=== PATIENT | female | born 1950 | race Hispanic/Latino ===

== ENCOUNTER 2018-10-22 10:53 | Inpatient (IN) | payer MEDICARE, OTHER ==
[2018-10-22 13:36] VITALS: BMI 21.6
[2018-10-22 13:41] LABS: URINE BILIRUBIN NEGATIVE (NEGATIVE); URINE BLOOD LARGE (NEGATIVE); URINE GLUCOSE (UA) NEGATIVE (NEGATIVE); URINE LEUKOCYTE ESTERASE MODERATE Leu/uL (NEGATIVE); URINE PROTEIN 100 mg/dL (<30 mg/dL); URINE UROBILINOGEN 0.2 E.U./dL (<1 E.U./dL)
[2018-10-22 13:42] LABS: URINE APPEARANCE TURBID (CLEAR); URINE COLOR YELLOW (YELLOW)
[2018-10-22 13:55] LABS: ALB/GLOB RATIO 0.9 (1.1-1.8); ALBUMIN 3.7 g/dL (3.0-4.8); CALCIUM 9.1 mg/dL (8.4-10.5)
[2018-10-22 13:56] LABS: HEMOGLOBIN 9.2 g/dL (12.0-16.0); MEAN CELL VOLUME 90.1 fl (80.0-105.0); MEAN CORPUSCULAR HEMOGLOBIN 29.4 pg (25.0-35.0); MEAN CORPUSCULAR HGB CONC 32.6 g/dl (31.0-37.0); MEAN PLATELET VOLUME 10.2 fl (7.0-11.0); RBC 3.13 10^6/uL (3.5-6.1); RED CELL DISTRIBUTION WIDTH 13.5 % (11.5-14.5); WHITE BLOOD COUNT 24.6 10^3/uL (4.5-11.0)
[2018-10-22 14:12] LABS: URINE RBC 25 - 30 /hpf (0-2)
[2018-10-22] MEDS ORDERED: Insulin Regular 1 UNITS/0.01 ML ML SC STA (14:12)
[2018-10-22] MEDS ORDERED: Dextrose 50% SYRINGE Inj (50 ml) IVP STA (14:12)
[2018-10-22] MEDS ORDERED: Sod Polystyrene Sulf 15 gm/60 ml Susp PO STA (14:12)
[2018-10-22] MEDS ORDERED: Dextrose 50% SYRINGE Inj (50 ml) IV PRN (14:12)
[2018-10-22 14:13] LABS: URINE BACTERIA MANY /hpf; URINE COARSE GRANULAR CAST SMALL /hpf
--- NOTE | 2018-10-22 14:38 | RAD ---
Date of service: 10/22/2018 PROCEDURE: CHEST RADIOGRAPH, 1 VIEW HISTORY: sob COMPARISON: 06/19/2016 FINDINGS: LUNGS: Clear. PLEURA: No pneumothorax or pleural fluid seen. CARDIOVASCULAR: No aortic atherosclerotic calcification present. Normal. OSSEOUS STRUCTURES: No significant abnormalities. VISUALIZED UPPER ABDOMEN: Normal. OTHER FINDINGS: None. IMPRESSION: No active disease.
--- NOTE | 2018-10-22 15:20 | US ---
Date of service: 10/22/2018 HISTORY: hx of kidney disease w/ nasra COMPARISON: None. TECHNIQUE: Sonographic evaluation of the abdomen. FINDINGS: LIVER: Measures 17.0 cm. Hepatopedal blood flow. Fatty infiltration manifest ultrasonographically as increased echogenicity of the liver parenchyma. No mass. No intrahepatic bile duct dilatation. GALLBLADDER: Unremarkable. No gallstones. COMMON BILE DUCT: Measures 5.6 mm. No stones. No dilatation. PANCREAS: Unremarkable as visualized. No mass. No ductal dilatation. RIGHT KIDNEY: Measures 4.2 x 10.4cm. Normal echogenicity. No calculus, mass, or hydronephrosis. LEFT KIDNEY: Measures 4.8 x 10.4cm. Normal echogenicity. No calculus, mass, or hydronephrosis. SPLEEN: Normal in size and contour. No mass. AORTA: No aneurysmal dilatation. IVC: Unremarkable. OTHER FINDINGS: None. IMPRESSION: Hepatic steatosis, otherwise unremarkable study.
--- NOTE | 2018-10-22 15:56 | CP.PCM.CON ---
<Anshul Rodriguez - Last Filed: 10/22/18 15:20> History of Present Illness - History of Present Illness History of Present Illness: Anshul Rodriguez, PGY-1 Consult Note for ICU CC: Lethargy HPI: 68 F with PMHx of granulomatosis with polyangiitis (diagnosed in 06/05 at which point patient received IV steroids, cytoxan, and plasmapharesis for 3 days), invasive ductal carcinoma grade 1 (for which patient received radiation therapy that completed 08/07, and HTN who presents with 3 weeks of lethargy. Patient had been feeling sustained full body weakness during that time period but denied fevers, chills, changes in bowel habits, nausea, vomiting, chest pain, palpitations. Patient went to her primary doctor, at which point no lab abnormalities were noted. Patient then had further labs drawn as lethargy progressed. Patient was then notified on 10/20/18 that creatinine had elevated to 8 and was subsequently urged to visit the hospital. Patient was started on course of Prednisone 20 mg BID yesterday. Patient denies recent travel or sick contacts. PMHx: as above PSHx: Lobectomy All: PCN Social: Past smoker, social ETOH use, Meds: Losartan 100 mg daily PMD: Dr. Webb Review of Systems - Review of Systems Review of Systems: 12 point ROS completed and negative except as described in HPI. Past Patient History - Past Social History Smoking Status: Never Smoked - CARDIAC Hx Cardiac Disorders: No - PULMONARY Hx Respiratory Disorders: Yes (SINUSITIS WITH REMMOVAL OF SINUS POLYPS) Other/Comment: FLU LIKE SYMPTOMS 06-19-16 - NEUROLOGICAL Hx Paralysis: No - HEENT Hx HEENT Problems: Yes (SINUSITIS WITH SINUS SX-REMOVAL OF POLYPS) - RENAL Hx Chronic Kidney Disease: No - ENDOCRINE/METABOLIC Hx Endocrine Disorders: No - HEMATOLOGICAL/ONCOLOGICAL Hx Blood Transfusions: No Hx Blood Transfusion Reaction: No - INTEGUMENTARY Hx Dermatological Problems: No - MUSCULOSKELETAL/RHEUMATOLOGICAL Hx Musculoskeletal Disorders: No - GASTROINTESTINAL Hx Gastrointestinal Disorders: No - GENITOURINARY/GYNECOLOGICAL Hx Genitourinary Disorders: No - PSYCHIATRIC Hx Emotional Abuse: No Hx Physical Abuse: No Hx Substance Use: No - SURGICAL HISTORY Hx Appendectomy: Yes Other/Comment: hemerhoid operation - ANESTHESIA Hx Anesthesia Reactions: No Hx Malignant Hyperthermia: No Meds Allergies/Adverse Reactions: Allergies Allergy/AdvReac Type Severity Reaction Status Date / Time Penicillins Allergy RASH Verified 06/19/16 18:00 - Medications Medications: Current Medications Dextrose (Dextrose 50% Inj) 0 ml IV STAT PRN; Protocol PRN Reason: Hypoglycemia Protocol Dextrose (Dextrose 5% In Water 1000 Ml) 1,000 mls @ 0 mls/hr IV .Q0M PRN; Protocol PRN Reason: Hypoglycemia Protocol Calcium Gluconate 1,000 mg/ (Sodium Chloride) 110 mls @ 110 mls/hr IVPB ONCE ONE Stop: 10/22/18 15:44 Physical Exam - Constitutional Appears: Other (Lethargic) - Head Exam Head Exam: ATRAUMATIC, NORMOCEPHALIC - Eye Exam Eye Exam: EOMI, PERRL - ENT Exam ENT Exam: Mucous Membranes Moist - Neck Exam Neck exam: Positive for: Full Rom - Respiratory Exam Respiratory Exam: Clear to Auscultation Bilateral. absent: Rales, Rhonchi, Wheezes, Respiratory Distress - Cardiovascular Exam Cardiovascular Exam: RRR, +S1, +S2 - GI/Abdominal Exam GI & Abdominal Exam: absent: Distended, Guarding, Rebound, Tenderness - Back Exam Back exam: absent: CVA tenderness (L), CVA tenderness (R), tenderness - Neurological Exam Neurological exam: Alert, CN II-XII Intact, Oriented x3 - Psychiatric Exam Psychiatric exam: Normal Affect, Normal Mood - Skin Skin Exam: Dry, Intact, Pallor, Warm Results - Vital Signs Recent Vital Signs: Last Vital Signs Temp Pulse 75 10/22/18 15:01 Resp 17 10/22/18 15:01 BP 126/66 10/22/18 15:01 Pulse Ox 98 10/22/18 15:01 - Labs Result Diagrams: 10/22/18 13:36 10/22/18 13:36 Labs: Laboratory Results - last 24 hr 10/22/18 10/22/18 10/22/18 13:36 13:36 13:36 WBC 24.6 H RBC 3.13 L Hgb 9.2 L Hct 28.2 L MCV 90.1 MCH 29.4 MCHC 32.6 RDW 13.5 Plt Count 406 MPV 10.2 Sodium 134 Potassium 6.5 H* D Chloride 101 Carbon Dioxide 20 L Anion Gap 20 BUN 106 H Creatinine 11.2 H* Est GFR ( Amer) 4 Est GFR (Non-Af Amer) 3 Random Glucose 151 H Calcium 9.1 Total Bilirubin 0.4 AST 25 ALT 25 Alkaline Phosphatase 108 NT-Pro-B Natriuret Pep 4110 H Total Protein 7.7 Albumin 3.7 Globulin 3.9 Albumin/Globulin Ratio 0.9 L Urine Color Yellow Urine Appearance Turbid Urine pH 6.0 Ur Specific [place] 1.025 Urine Protein 100 H Urine Glucose (UA) Negative Urine Ketones Negative Urine Blood Large H Urine Nitrate Negative Urine Bilirubin Negative Urine Urobilinogen 0.2 Ur Leukocyte Esterase Moderate H Urine RBC 25 - 30 H Urine WBC 10 - 15 H Ur Epithelial Cells 4 - 5 Urine Bacteria Many Coarse Granular Casts Small Assessment & Plan - Assessment and Plan (Free Text) Assessment: 68 F with PMHx of granulomatosis with polyangiitis and ductal carcinoma s/p lobectomy who presents with acute renal failure and hyperkalemia. Neuro - AAOx3, no FND, moving extremities past midline. - Monitor neuro status. - Reorient patient as necessary. Nephro ANA - likely 2/2 to granulomatosis with polyangiitis flare - Leukocytosis 24 - BUN/Cr 106/11.2 - UA shows bacteria and granular casts - HD as per renal, plan for tomorrow if K responds appropriately to K-lowering cocktail. - IR consulted - Dr. Cross- for dialysis catheter placement today - Continue monitoring. - Replete electrolytes as needed. - Maintain euvolemia. - Renal consult produced- Dr. Randall- recs appreciated Endo - Hyperkalemia 6.5- cocktail provided. - F/u repeat BMP - AM labs - Random glucose: 151 - Maintain euglycemia. GI - 10/22/18 Abd U/S shows hepatic steatosis - Renal diet - Ppx with Protonix 40 mg Pulm - 10/22/18 CXR shows no significant abnormalities - No signs of respiratory distress. CTA B/L - Patient is stating well on room air. - Maintain O2 saturation>92%. - O2 NC PRN - Elevate bed to 30 degrees Cardio - CV intact, hemodynamically stable - EKG shows NSR @ 60 bpm, no ST or T wave changes - BP controlled 126/66. Will hold home Losartan for now in light of renal ins ult. - RRR, normotensive, no signs of HD compromise - Maintain MAP >65. - Monitor for S/S, HD compromise. - Hgb 9.2, continue to monitor DVT Ppx - Heparin 5000 SC q8 Patient seen, case reviewed and plan approved by Dr. Russell. Anshul Rodriguez, PGY-1 <Mark Russell - Last Filed: 10/22/18 16:57> Meds - Medications Medications: Current Medications Dextrose (Dextrose 50% Inj) 0 ml IV STAT PRN; Protocol PRN Reason: Hypoglycemia Protocol Heparin Sodium (Porcine) (Heparin) 5,000 units SC Q8 BAKARI; Protocol Dextrose (Dextrose 5% In Water 1000 Ml) 1,000 mls @ 0 mls/hr IV .Q0M PRN; Protocol PRN Reason: Hypoglycemia Protocol Pantoprazole Sodium (Protonix Ec Tab) 40 mg PO 0600 BAKARI Prednisone (Prednisone Tab) 30 mg PO BID BAKARI Results - Vital Signs Recent Vital Signs: Last Vital Signs Temp Pulse 75 10/22/18 15:01 Resp 17 10/22/18 15:01 BP 126/66 10/22/18 15:01 Pulse Ox 98 10/22/18 15:01 - Labs Result Diagrams: 10/22/18 13:36 10/22/18 13:36 Labs: Laboratory Results - last 24 hr 10/22/18 10/22/18 10/22/18 13:36 13:36 13:36 WBC 24.6 H RBC 3.13 L Hgb 9.2 L Hct 28.2 L MCV 90.1 MCH 29.4 MCHC 32.6 RDW 13.5 Plt Count 406 MPV 10.2 Sodium 134 Potassium 6.5 H* D Chloride 101 Carbon Dioxide 20 L Anion Gap 20 BUN 106 H Creatinine 11.2 H* Est GFR ( Amer) 4 Est GFR (Non-Af Amer) 3 Random Glucose 151 H Calcium 9.1 Total Bilirubin 0.4 AST 25 ALT 25 Alkaline Phosphatase 108 NT-Pro-B Natriuret Pep 4110 H Total Protein 7.7 Albumin 3.7 Globulin 3.9 Albumin/Globulin Ratio 0.9 L Urine Color Yellow Urine Appearance Turbid Urine pH 6.0 Ur Specific [place] 1.025 Urine Protein 100 H Urine Glucose (UA) Negative Urine Ketones Negative Urine Blood Large H Urine Nitrate Negative Urine Bilirubin Negative Urine Urobilinogen 0.2 Ur Leukocyte Esterase Moderate H Urine RBC 25 - 30 H Urine WBC 10 - 15 H Ur Epithelial Cells 4 - 5 Urine Bacteria Many Coarse Granular Casts Small Assessment & Plan - Assessment and Plan (Free Text) Assessment: Patient seen and examined on rounds with resident, agree with note with following additions/exceptions: Patient is 68 F with PMHx of granulomatosis with polyangiitis (diagnosed in 06/05 at which point patient received IV steroids, cytoxan, and plasmapharesis for 3 days), invasive ductal carcinoma grade 1 (for which patient received radiation therapy that completed 08/07, and HTN who presents with 3 weeks of lethargy. Patient found to have worsening renal function, increased BUN/Cr, K 6.5 Renal consulted by ER, Dr Randall, plan for HD today IR for HD catheter Repeat BMP after HD Calcium, Insulin, D50, Kayex GI ppx DVT ppx Admit to MICU
[2018-10-22] MEDS ORDERED: Lidocaine 2% Inj (20ml) ONE (17:03)
[2018-10-22] MEDS ORDERED: DiphenhydrAMINE 50 mg/ml Inj ONE (17:09)
[2018-10-22] MEDS ORDERED: Midazolam 2 MG/2 ML VIAL ONE (17:24)
--- NOTE | 2018-10-22 17:40 | CARD ---
APPROVED REPORT Date of service: 10/22/2018 EKG Measurement Heart [id number] <Conclusion> Normal sinus rhythm Normal ECG
--- NOTE | 2018-10-22 17:42 | CP.PCM.PCO ---
Physician Communication Note - Physician Communication Note Physician Communication Note: pt seen/documented in ED during [facility] downtime, paperwork to be scanned
[2018-10-22] MEDS ORDERED: Sodium Chloride 0.9% 1,000 ML IV SCH (17:45)
--- NOTE | 2018-10-22 20:02 | VASCULAR ---
PROCEDURE: Ultrasound and fluoroscopic tunneled right IJ dialysis catheter. CLINICAL HISTORY: ESRD PHYSICIAN(S): Reyes Cross M.D. TECHNIQUE: The relative risks and indications for the procedure were explained to the patient and informed written consent obtained. The patient was placed supine on the arteriography table and the right neck/chest was prepped and draped in the usual sterile fashion. 1% Xylocaine was used to anesthetize the skin and soft tissues at the puncture site. Conscious sedation and monitoring were provided throughout the procedure by a nurse. Under direct ultrasound guidance, the rightinternal jugular vein was punctured with a micropuncture set. A 0.035 Glidewire was advanced into the IVC. Sequential dilatation was performed with subsequent placement of a 28cm Nextgen catheter with its tip in the right atrium. A retrograde tunnel below the right clavicle was performed. The catheter was trimmed and the hub attached. Both ports aspirate and inject easily. The catheter was secured and a dressing applied. The patient tolerated the procedure well. IMPRESSION: 1. Ultrasound and fluoroscopically placed right IJ tunneled dialysis catheter.
[2018-10-22 20:19] LABS: COMPLEMENT C4 46.9 mg/dL (14.0-44.0)
[2018-10-22 20:43] LABS: HEPATITIS B SURFACE AG Negative (NEGATIVE)
[2018-10-22 20:49] LABS: HEPATITIS B CORE AB NEGATIVE (NEGATIVE)
[2018-10-22] MEDS ORDERED: Influenza Vaccine 60 mcg/0.5 mL SYR (4YR UP) IM ONE (22:36)
[2018-10-22] MEDS ORDERED: Pneumococcal 23-Valent Vaccine IM ONE (22:36)
--- NOTE | 2018-10-23 01:33 | CON ---
DATE OF CONSULTATION: 10/22/2018 The patient admitted for Dr. Simon Webb. REFERRING PHYSICIAN: Simon Webb MD REASON FOR CONSULTATION: Evaluation of a patient, known to my partner, Dr. French, with a history of crescentic glomerulonephritis, in admission, who presents to the emergency room with a creatinine of 11.2 and a potassium of 6.5. HISTORY OF PRESENT ILLNESS: The patient is a 68-year-old white female with a history of biopsy-proven pauci immune crescentic glomerulonephritis, ANCA positive. The patient was treated with steroids, Cytoxan and rituximab. Apparently, the patient had been in remission. As recent as the fall, her creatinine had been in the 1.2 range. The patient does have a history of hypertension. She was started on losartan. She also takes omeprazole for reflux. The patient over the last 1-2 weeks had been developing uremic symptoms with nausea, vomiting, and shakiness. The patient currently lives in [place], [place]. Because of her symptomatology and the fact that she has physicians that are known to her in the [facility], the patient comes up to the emergency room. In the emergency room, the patient is found to have a creatinine of 11.2 and a potassium of 6.5. As per the patient's , she apparently had either plasmapheresis or hemodialysis five treatments several years ago at the time of diagnosis. The patient is currently being admitted to the ICU. The patient will likely need emergent dialysis. It will need to take place as early as this evening if we could not lower her potassium level. PAST MEDICAL HISTORY: Significant for that of pauci immune crescentic glomerulonephritis, ANCA positive. History of hypertension. History of breast cancer, status post lumpectomy. FAMILY HISTORY: Noncontributory and as per old charts. SOCIAL HISTORY: No history of cigarette smoking, history of alcohol use. MEDICATIONS AT HOME: Losartan and omeprazole. No medications in hospital as of yet. The patient was seen in the emergency room. ALLERGIES: THE PATIENT IS ALLERGIC TO PENICILLIN. REVIEW OF SYSTEMS: Ten plus systems reviewed with the patient. GENERAL: The patient states appetite has been reduced over the last 2 weeks with weight loss. ENT: Denies any hearing or visual problems. PULMONARY: No shortness of breath. No history of COPD, bronchitis, emphysema or pneumonia. CARDIAC: No history of coronary artery disease. GI: History of nausea and vomiting likely secondary to elevated BUN and creatinine levels. No history of colitis. No abdominal pain. : The patient states she is still making urine. Past history of acute renal failure secondary to pauci immune crescentic glomerulonephritis. CT TECH: Postmenopausal. ENDOCRINE: No history of diabetes. MUSCULOSKELETAL: No complaints. NEURO: No past history of CVA, TIA, seizures or syncope. HEME/ONC: History of breast cancer, status post lumpectomy. History of anemia likely secondary to renal failure. PSYCHIATRIC: History is negative. PHYSICAL EXAMINATION: GENERAL: The patient is currently seen in the emergency room. She is complaining of mild nausea, no vomiting. Positive hiccups. Positive pruritus. VITAL SIGNS: Blood pressure currently is 126/66, pulse is 75, temperature is 98.7, oxygen saturation is 98 with a respiratory rate of 17. HEENT: Exam shows her to be normocephalic and atraumatic. Conjunctivae are pale. Sclerae nonicteric. Pupils are equal and reactive to light and accommodation. Extraocular muscles are intact. NECK: Supple. No neck vein distention. No lymphadenopathy. No bruits. No thyromegaly. CHEST: Clear to auscultation and percussion. No rales, rhonchi or wheezing. CARDIOVASCULAR: Regular rate and rhythm with a soft systolic ejection murmur at the left lower sternal border. No S3, no S4, no rub. ABDOMEN: Soft. Bowel sounds normal. No rebound, guarding or masses. BACK: No CVAT. No spinal tenderness. EXTREMITIES: No cyanosis, no clubbing or edema. The patient currently has no asterixis. Distal lower extremity pulses are 2+ bilaterally. NEURO: Shows her to be alert, oriented x3 with no gross focal motor or sensory deficits. LABORATORY DATA: CBC: White blood cell count 24.6 with a hemoglobin of 9.2 and platelet count of 406,000. Chemistries/Electrolytes: Sodium 134; potassium 6.5, non-hemolyzed; CO2 of 20; BUN 106 with creatinine of 11.2; glucose is 151. BNP mildly elevated at 4110. Liver enzymes are normal. Albumin is 3.7. Urine showed 2+ protein, 25-30 red blood cells and 10-15 white blood cells per high-power field with many bacteria. No cultures available for comment. IMAGING STUDIES: Chest x-ray done shows no active pulmonary disease. Abdominal ultrasound done shows a hepatic steatosis. Otherwise unremarkable study. Left kidney is 10.4 cm. Right kidney is 10.4 cm. Normal echogenicity. No masses. No hydronephrosis. Admitting EKG shows a normal sinus rhythm with no acute ST or T-wave changes. ASSESSMENT: 1. Acute renal failure in a patient with a past history of pauci immune crescentic glomerulonephritis in the past, treated with steroid, Cytoxan and rituximab. The patient was ANCA positive. Apparently, the patient had been in remission for several years. Creatinine had been in the low 1 range with no significant amount of proteinuria. Over the last 2 months or so, the patient has apparently been having a rising creatinine. Labs were not done. The patient came up to the emergency room today with full-blown acute renal failure, perhaps reactivation of her pauci immune crescentic glomerulonephritis. The patient is hyperkalemic. She will likely need acute dialysis to help stabilize her developing uremic state. If we could lower her potassium with Kayexalate, calcium bicarbonate, insulin, D50 and albuterol, perhaps dialysis can be held until tomorrow. Presently, the patient does not have a line in for dialysis. 2. History of hypertension. Losartan will be discontinued in light of the fact that her blood pressure is normal and she is in acute renal failure and hyperkalemic. 3. Past history of breast cancer, currently stable. PLAN: 1. Will treat the patient emergently with dialysis because of her hyperkalemia and elevated BUN and creatinine and her development of uremic symptoms. 2. Would like to try and find some reversible disease. Will obtain a C3 and C4 level, ANCA titer. Perhaps empiric steroids and Cytoxan if we feel this is reactivation of her acute glomerulonephritis. A repeat kidney biopsy can be done to see whether or not there is active disease in the kidney versus chronic sclerosis secondary to her past history of acute glomerulonephritis. 3. Agree with admission to the ICU. 4. No blood pressure medication necessary at this point in time. 5. Check phosphorus level and start the patient on binder therapy as necessary. 6. Aranesp and p.r.n. iron for her anemia. 7. Discussed with the patient and her in great detail. Will attempt to find any reversible disease. If we are unsuccessful, the patient will likely need chronic dialysis. Greater than 45 minutes spent in the care of this patient. Ovidio Randall MD
[2018-10-23 03:19] LABS: GRAN # 18.53 (1.4-6.5); HEMOGLOBIN 8.9 g/dL (12.0-16.0); LYMPH # 1.1 (1.2-3.4); LYMPH % 5.7 % (22.0-35.0); MEAN CELL VOLUME 89.2 fl (80.0-105.0); MEAN CORPUSCULAR HEMOGLOBIN 29.2 pg (25.0-35.0); MEAN CORPUSCULAR HGB CONC 32.7 g/dl (31.0-37.0); MEAN PLATELET VOLUME 9.9 fl (7.0-11.0); MONO # 0.1 (0.1-0.6); MONO % 0.3 % (1.0-6.0); PLATELET COUNT 380 10^3/uL (120.0-450.0); RBC 3.05 10^6/uL (3.5-6.1); RED CELL DISTRIBUTION WIDTH 13.6 % (11.5-14.5); WHITE BLOOD COUNT 19.7 10^3/uL (4.5-11.0)
[2018-10-23 03:34] LABS: CALCIUM 8.4 mg/dL (8.4-10.5)
[2018-10-23 03:41] LABS: PH,URINE 5.5 (4.7-8.0); URINE APPEARANCE CLEAR (CLEAR); URINE BILIRUBIN NEGATIVE (NEGATIVE); URINE BLOOD LARGE (NEGATIVE); URINE COLOR YELLOW (YELLOW); URINE GLUCOSE (UA) NEGATIVE (NEGATIVE); URINE LEUKOCYTE ESTERASE SMALL Leu/uL (NEGATIVE); URINE PROTEIN 30 mg/dL (<30 mg/dL); URINE UROBILINOGEN 0.2 E.U./dL (<1 E.U./dL)
[2018-10-23 03:42] LABS: URINE BACTERIA TRACE /hpf; URINE EPITHELIAL CELLS 0 - 2 /hpf (0-5); URINE RBC 20 - 25 /hpf (0-2)
[2018-10-23 06:03] LABS: NEUTROPHIL 93 % (50.0-70.0)
[2018-10-23 06:04] LABS: ANISOCYTOSIS SLIGHT; BAND 1 % (0-2); HYPOCHROMIA SLIGHT; LYMPHOCYTE 4 % (22.0-35.0); MONOCYTE 2 % (1.0-6.0); PLATELET ESTIMATE NORMAL (NORMAL)
[2018-10-23] MEDS: Pantoprazole 40 mg EC Tab PO SCH (06:14)
[2018-10-23 07:15] LABS: BASO # 0.01 K/mm3 (0.0-2.0); GRAN # 20.08 (1.4-6.5); GRAN % 92.9 % (50.0-68.0); HEMOGLOBIN 9.3 g/dL (12.0-16.0); LYMPH # 1.3 (1.2-3.4); LYMPH % 5.9 % (22.0-35.0); MEAN CELL VOLUME 90.2 fl (80.0-105.0); MEAN CORPUSCULAR HEMOGLOBIN 28.6 pg (25.0-35.0); MEAN CORPUSCULAR HGB CONC 31.7 g/dl (31.0-37.0); MONO # 0.3 (0.1-0.6); MONO % 1.2 % (1.0-6.0); RBC 3.25 10^6/uL (3.5-6.1); RED CELL DISTRIBUTION WIDTH 13.7 % (11.5-14.5); WHITE BLOOD COUNT 21.6 10^3/uL (4.5-11.0)
--- NOTE | 2018-10-23 07:26 | CP.CCUPN ---
<Anshul Rodriguez - Last Filed: 10/23/18 12:21> CCU Subjective - Physician Review Subjective (Free Text): Anshul Rodriguez PGY-1 Progress Note for ICU Patient seen and evaluated at bedside. Patient reports greater energy and less fatigue this morning after eating. Patient states last BM was a week ago. Currently patient reports good urine output and mild L sided abdominal pain but denies chest pain, shortness of breath, palpitations, nausea, vomiting, fevers, chills, blurry vision. Dressed dialysis catheter present in R upper chest. CCU Objective - Vital Signs / Intake & Output Vital Signs (Last 4 hours): Vital Signs Pulse 10/23/18 06:00 68 Intake and Output (Last 8hrs): Intake & Output 10/22/18 10/23/18 10/23/18 22:59 06:59 14:59 Intake Total 1740 Output Total 75 Balance 1665 Weight 58.967 kg 60.781 kg Intake: IV 840 Left Antecubital 840 Oral 900 Output: Urine 75 Urine, Voided 75 Other: Voiding Method Toilet # Voids Urine, Voided 1 - Physical Exam Other physical findings (Free Text): - Constitutional Appears: Other (Lethargic) - Head Exam Head Exam: ATRAUMATIC, NORMOCEPHALIC - Eye Exam Eye Exam: EOMI, PERRL - ENT Exam ENT Exam: Mucous Membranes Moist - Neck Exam Neck exam: Positive for: Full Rom - Respiratory Exam Respiratory Exam: Clear to Auscultation Bilateral. Triple lumen catheter R upper chest, dressings c/d/i, absent: Rales, Rhonchi, Wheezes, Respiratory Distress - Cardiovascular Exam Cardiovascular Exam: RRR, +S1, +S2 - GI/Abdominal Exam GI & Abdominal Exam: Tenderness, absent: Distended, Guarding, Rebound - Back Exam Back exam: absent: CVA tenderness (L), CVA tenderness (R), tenderness - Neurological Exam Neurological exam: Alert, CN II-XII Intact, Oriented x3 - Psychiatric Exam Psychiatric exam: Normal Affect, Normal Mood - Skin Skin Exam: Dry, Intact, Pallor, Warm - Medications Active Medications: Active Medications Generic Name Dose Route Start Last Admin Trade Name Freq PRN Reason Stop Dose Admin Dextrose 0 ml 10/22/18 14:12 Dextrose 50% Inj IV STAT PRN Hypoglycemia Protocol Protocol Heparin Sodium (Porcine) 5,000 units 10/22/18 22:00 10/23/18 06:15 Heparin SC 5,000 units Q8 BAKARI Administration Protocol Dextrose 1,000 mls @ 0 mls/hr 10/22/18 14:12 Dextrose 5% In Water 1000 Ml IV .Q0M PRN Hypoglycemia Protocol Protocol Per Protocol Sodium Chloride 1,000 mls @ 70 mls/hr 10/22/18 17:45 Sodium Chloride 0.9% IV .[id number] [facility] Influenza Virus Vaccine 60 mcg 10/22/18 22:36 Flucelvax Quad 5976-0693 Syr IM .ONCE ONE Pantoprazole Sodium 40 mg 10/23/18 06:00 10/23/18 06:14 Protonix Ec Tab PO 40 mg 0600 [facility] Administration Prednisone 30 mg 10/22/18 18:00 Prednisone Tab PO BID [facility] - Patient Studies Lab Studies: Lab Studies 10/23/18 10/23/18 10/23/18 Range/Units 06:50 02:35 02:35 WBC 21.6 H 19.7 H (4.5-11.0) 10^3/uL RBC 3.25 L 3.05 L (3.5-6.1) 10^6/uL Hgb 9.3 L 8.9 L (12.0-16.0) g/dL Hct 29.3 L 27.2 L (36.0-48.0) % MCV 90.2 89.2 (80.0-105.0) fl MCH 28.6 29.2 (25.0-35.0) pg MCHC 31.7 32.7 (31.0-37.0) g/dl RDW 13.7 13.6 (11.5-14.5) % Plt Count 416 380 (120.0-450.0) 10^3/uL MPV 10.0 9.9 (7.0-11.0) fl Gran % 92.9 H 94.0 H (50.0-68.0) % Lymph % (Auto) 5.9 L 5.7 L (22.0-35.0) % Pershing % (Auto) 1.2 0.3 L (1.0-6.0) % Eos % (Auto) 0.0 L 0.0 L (1.5-5.0) % Baso % (Auto) 0.0 0.0 (0.0-3.0) % Gran # 20.08 H 18.53 H (1.4-6.5) Lymph # (Auto) 1.3 1.1 L (1.2-3.4) Pershing # (Auto) 0.3 0.1 (0.1-0.6) Eos # (Auto) 0.0 0.0 (0.0-0.7) Baso # (Auto) 0.01 0.00 (0.0-2.0) K/mm3 Neutrophils % (Manual) 93 H (50.0-70.0) % Band Neutrophils % 1 (0-2) % Lymphocytes % (Manual) 4 L (22.0-35.0) % Monocytes % (Manual) 2 (1.0-6.0) % Platelet Evaluation Normal (NORMAL) Hypochromasia Slight Anisocytosis (manual) Slight ESR (0.0-20.0) mm/hr Sodium 135 (132-148) mmol/L Potassium 6.0 H* (3.6-5.0) mmol/L Chloride 105 (98-107) mmol/L Carbon Dioxide 18 L (21-33) mmol/L Anion Gap 18 (10-20) BUN 107 H (7-21) mg/dL Creatinine 10.6 H* (0.7-1.2) mg/dl Est GFR ( Amer) 4 Est GFR (Non-Af Amer) 4 Random Glucose 124 H (70-110) mg/dL Calcium 8.4 (8.4-10.5) mg/dL Phosphorus 6.0 H (2.5-4.5) mg/dL Magnesium 2.5 H (1.7-2.2) mg/dL Total Bilirubin (0.2-1.3) mg/dL AST (14-36) U/L ALT (7-56) U/L Alkaline Phosphatase (38-126) U/L NT-Pro-B Natriuret Pep (0-450) pg/mL Total Protein (5.8-8.3) g/dL Albumin (3.0-4.8) g/dL Globulin gm/dL Albumin/Globulin Ratio (1.1-1.8) Urine Color (YELLOW) Urine Appearance (CLEAR) Urine pH (4.7-8.0) Ur Specific [place] (1.005-1.035) Urine Protein (<30 mg/dL) mg/dL Urine Glucose (UA) (NEGATIVE) mg/dL Urine Ketones (NEGATIVE) mg/dL Urine Blood (NEGATIVE) Urine Nitrate (NEGATIVE) Urine Bilirubin (NEGATIVE) Urine Urobilinogen (<1 E.U./dL) E.U./dL Ur Leukocyte Esterase (NEGATIVE) [place]/uL Urine RBC (0-2) /hpf Urine WBC (0-6) /hpf Ur Epithelial Cells (0-5) /hpf Urine Bacteria (NONE) /hpf Coarse Granular Casts (NONE) /hpf Complement C3 (88.0-165.0) mg/dL Complement C4 (14.0-44.0) mg/dL Hep Bs Antigen (NEGATIVE) Hep Bs Antibody (NEGATIVE) Hep B Core IgM Ab (NEGATIVE) 10/23/18 10/22/18 10/22/18 Range/Units 00:01 16:30 16:30 WBC (4.5-11.0) 10^3/uL RBC (3.5-6.1) 10^6/uL Hgb (12.0-16.0) g/dL Hct (36.0-48.0) % MCV (80.0-105.0) fl MCH (25.0-35.0) pg MCHC (31.0-37.0) g/dl RDW (11.5-14.5) % Plt Count (120.0-450.0) 10^3/uL MPV (7.0-11.0) fl Gran % (50.0-68.0) % Lymph % (Auto) (22.0-35.0) % Pershing % (Auto) (1.0-6.0) % Eos % (Auto) (1.5-5.0) % Baso % (Auto) (0.0-3.0) % Gran # (1.4-6.5) Lymph # (Auto) (1.2-3.4) Pershing # (Auto) (0.1-0.6) Eos # (Auto) (0.0-0.7) Baso # (Auto) (0.0-2.0) K/mm3 Neutrophils % (Manual) (50.0-70.0) % Band Neutrophils % (0-2) % Lymphocytes % (Manual) (22.0-35.0) % Monocytes % (Manual) (1.0-6.0) % Platelet Evaluation (NORMAL) Hypochromasia Anisocytosis (manual) ESR (0.0-20.0) mm/hr Sodium (132-148) mmol/L Potassium (3.6-5.0) mmol/L Chloride (98-107) mmol/L Carbon Dioxide (21-33) mmol/L Anion Gap (10-20) BUN (7-21) mg/dL Creatinine (0.7-1.2) mg/dl Est GFR ( Amer) Est GFR (Non-Af Amer) Random Glucose (70-110) mg/dL Calcium (8.4-10.5) mg/dL Phosphorus (2.5-4.5) mg/dL Magnesium (1.7-2.2) mg/dL Total Bilirubin (0.2-1.3) mg/dL AST (14-36) U/L ALT (7-56) U/L Alkaline Phosphatase (38-126) U/L NT-Pro-B Natriuret Pep (0-450) pg/mL Total Protein (5.8-8.3) g/dL Albumin (3.0-4.8) g/dL Globulin gm/dL Albumin/Globulin Ratio (1.1-1.8) Urine Color Yellow (YELLOW) Urine Appearance Clear (CLEAR) Urine pH 5.5 (4.7-8.0) Ur Specific [place] 1.020 (1.005-1.035) Urine Protein 30 H (<30 mg/dL) mg/dL Urine Glucose (UA) Negative (NEGATIVE) mg/dL Urine Ketones Negative (NEGATIVE) mg/dL Urine Blood Large H (NEGATIVE) Urine Nitrate Negative (NEGATIVE) Urine Bilirubin Negative (NEGATIVE) Urine Urobilinogen 0.2 (<1 E.U./dL) E.U./dL Ur Leukocyte Esterase Small H (NEGATIVE) [place]/uL Urine RBC 20 - 25 H (0-2) /hpf Urine WBC 10 - 15 H (0-6) /hpf Ur Epithelial Cells 0 - 2 (0-5) /hpf Urine Bacteria Trace (NONE) /hpf Coarse Granular Casts (NONE) /hpf Complement C3 (88.0-165.0) mg/dL Complement C4 (14.0-44.0) mg/dL Hep Bs Antigen Negative (NEGATIVE) Hep Bs Antibody Negative (NEGATIVE) Hep B Core IgM Ab Negative (NEGATIVE) 10/22/18 10/22/18 10/22/18 Range/Units 16:30 16:30 16:00 WBC (4.5-11.0) 10^3/uL RBC (3.5-6.1) 10^6/uL Hgb (12.0-16.0) g/dL Hct (36.0-48.0) % MCV (80.0-105.0) fl MCH (25.0-35.0) pg MCHC (31.0-37.0) g/dl RDW (11.5-14.5) % Plt Count (120.0-450.0) 10^3/uL MPV (7.0-11.0) fl Gran % (50.0-68.0) % Lymph % (Auto) (22.0-35.0) % Pershing % (Auto) (1.0-6.0) % Eos % (Auto) (1.5-5.0) % Baso % (Auto) (0.0-3.0) % Gran # (1.4-6.5) Lymph # (Auto) (1.2-3.4) Pershing # (Auto) (0.1-0.6) Eos # (Auto) (0.0-0.7) Baso # (Auto) (0.0-2.0) K/mm3 Neutrophils % (Manual) (50.0-70.0) % Band Neutrophils % (0-2) % Lymphocytes % (Manual) (22.0-35.0) % Monocytes % (Manual) (1.0-6.0) % Platelet Evaluation (NORMAL) Hypochromasia Anisocytosis (manual) ESR 150 H (0.0-20.0) mm/hr Sodium 136 (132-148) mmol/L Potassium 5.5 H (3.6-5.0) mmol/L Chloride 103 (98-107) mmol/L Carbon Dioxide 19 L (21-33) mmol/L Anion Gap 19 (10-20) BUN 106 H (7-21) mg/dL Creatinine 10.5 H* (0.7-1.2) mg/dl Est GFR ( Amer) 4 Est GFR (Non-Af Amer) 4 Random Glucose 176 H (70-110) mg/dL Calcium 9.0 (8.4-10.5) mg/dL Phosphorus (2.5-4.5) mg/dL Magnesium (1.7-2.2) mg/dL Total Bilirubin (0.2-1.3) mg/dL AST (14-36) U/L ALT (7-56) U/L Alkaline Phosphatase (38-126) U/L NT-Pro-B Natriuret Pep (0-450) pg/mL Total Protein (5.8-8.3) g/dL Albumin (3.0-4.8) g/dL Globulin gm/dL Albumin/Globulin Ratio (1.1-1.8) Urine Color (YELLOW) Urine Appearance (CLEAR) Urine pH (4.7-8.0) Ur Specific [place] (1.005-1.035) Urine Protein (<30 mg/dL) mg/dL Urine Glucose (UA) (NEGATIVE) mg/dL Urine Ketones (NEGATIVE) mg/dL Urine Blood (NEGATIVE) Urine Nitrate (NEGATIVE) Urine Bilirubin (NEGATIVE) Urine Urobilinogen (<1 E.U./dL) E.U./dL Ur Leukocyte Esterase (NEGATIVE) [place]/uL Urine RBC (0-2) /hpf Urine WBC (0-6) /hpf Ur Epithelial Cells (0-5) /hpf Urine Bacteria (NONE) /hpf Coarse Granular Casts (NONE) /hpf Complement C3 143.0 (88.0-165.0) mg/dL Complement C4 46.9 H (14.0-44.0) mg/dL Hep Bs Antigen (NEGATIVE) Hep Bs Antibody (NEGATIVE) Hep B Core IgM Ab (NEGATIVE) 10/22/18 10/22/18 10/22/18 Range/Units 13:36 13:36 13:36 WBC 24.6 H (4.5-11.0) 10^3/uL RBC 3.13 L (3.5-6.1) 10^6/uL Hgb 9.2 L (12.0-16.0) g/dL Hct 28.2 L (36.0-48.0) % MCV 90.1 (80.0-105.0) fl MCH 29.4 (25.0-35.0) pg MCHC 32.6 (31.0-37.0) g/dl RDW 13.5 (11.5-14.5) % Plt Count 406 (120.0-450.0) 10^3/uL MPV 10.2 (7.0-11.0) fl Gran % (50.0-68.0) % Lymph % (Auto) (22.0-35.0) % Pershing % (Auto) (1.0-6.0) % Eos % (Auto) (1.5-5.0) % Baso % (Auto) (0.0-3.0) % Gran # (1.4-6.5) Lymph # (Auto) (1.2-3.4) Pershing # (Auto) (0.1-0.6) Eos # (Auto) (0.0-0.7) Baso # (Auto) (0.0-2.0) K/mm3 Neutrophils % (Manual) (50.0-70.0) % Band Neutrophils % (0-2) % Lymphocytes % (Manual) (22.0-35.0) % Monocytes % (Manual) (1.0-6.0) % Platelet Evaluation (NORMAL) Hypochromasia Anisocytosis (manual) ESR (0.0-20.0) mm/hr Sodium 134 (132-148) mmol/L Potassium 6.5 H* D (3.6-5.0) mmol/L Chloride 101 (98-107) mmol/L Carbon Dioxide 20 L (21-33) mmol/L Anion Gap 20 (10-20) BUN 106 H (7-21) mg/dL Creatinine 11.2 H* (0.7-1.2) mg/dl Est GFR ( Amer) 4 Est GFR (Non-Af Amer) 3 Random Glucose 151 H (70-110) mg/dL Calcium 9.1 (8.4-10.5) mg/dL Phosphorus (2.5-4.5) mg/dL Magnesium (1.7-2.2) mg/dL Total Bilirubin 0.4 (0.2-1.3) mg/dL AST 25 (14-36) U/L ALT 25 (7-56) U/L Alkaline Phosphatase 108 (38-126) U/L NT-Pro-B Natriuret Pep 4110 H (0-450) pg/mL Total Protein 7.7 (5.8-8.3) g/dL Albumin 3.7 (3.0-4.8) g/dL Globulin 3.9 gm/dL Albumin/Globulin Ratio 0.9 L (1.1-1.8) Urine Color Yellow (YELLOW) Urine Appearance Turbid (CLEAR) Urine pH 6.0 (4.7-8.0) Ur Specific [place] 1.025 (1.005-1.035) Urine Protein 100 H (<30 mg/dL) mg/dL Urine Glucose (UA) Negative (NEGATIVE) mg/dL Urine Ketones Negative (NEGATIVE) mg/dL Urine Blood Large H (NEGATIVE) Urine Nitrate Negative (NEGATIVE) Urine Bilirubin Negative (NEGATIVE) Urine Urobilinogen 0.2 (<1 E.U./dL) E.U./dL Ur Leukocyte Esterase Moderate H (NEGATIVE) [place]/uL Urine RBC 25 - 30 H (0-2) /hpf Urine WBC 10 - 15 H (0-6) /hpf Ur Epithelial Cells 4 - 5 (0-5) /hpf Urine Bacteria Many (NONE) /hpf Coarse Granular Casts Small (NONE) /hpf Complement C3 (88.0-165.0) mg/dL Complement C4 (14.0-44.0) mg/dL Hep Bs Antigen (NEGATIVE) Hep Bs Antibody (NEGATIVE) Hep B Core IgM Ab (NEGATIVE) Laboratory Results - last 24 hr 10/22/18 10/22/18 10/22/18 13:36 13:36 13:36 WBC 24.6 H RBC 3.13 L Hgb 9.2 L Hct 28.2 L MCV 90.1 MCH 29.4 MCHC 32.6 RDW 13.5 Plt Count 406 MPV 10.2 Gran % Lymph % (Auto) Pershing % (Auto) Eos % (Auto) Baso % (Auto) Gran # Lymph # (Auto) [place]hing # (Auto) Eos # (Auto) Baso # (Auto) Neutrophils % (Manual) Band Neutrophils % Lymphocytes % (Manual) Monocytes % (Manual) Platelet Evaluation Hypochromasia Anisocytosis (manual) ESR Sodium 134 Potassium 6.5 H* D Chloride 101 Carbon Dioxide 20 L Anion Gap 20 BUN 106 H Creatinine 11.2 H* Est GFR ( Amer) 4 Est GFR (Non-Af Amer) 3 Random Glucose 151 H Calcium 9.1 Phosphorus Magnesium Total Bilirubin 0.4 AST 25 ALT 25 Alkaline Phosphatase 108 NT-Pro-B Natriuret Pep 4110 H Total Protein 7.7 Albumin 3.7 Globulin 3.9 Albumin/Globulin Ratio 0.9 L Urine Color Yellow Urine Appearance Turbid Urine pH 6.0 Ur Specific [place] 1.025 Urine Protein 100 H Urine Glucose (UA) Negative Urine Ketones Negative Urine Blood Large H Urine Nitrate Negative Urine Bilirubin Negative Urine Urobilinogen 0.2 Ur Leukocyte Esterase Moderate H Urine RBC 25 - 30 H Urine WBC 10 - 15 H Ur Epithelial Cells 4 - 5 Urine Bacteria Many Coarse Granular Casts Small Complement C3 Complement C4 Hep Bs Antigen Hep Bs Antibody Hep B Core IgM Ab 10/22/18 10/22/18 10/22/18 16:00 16:30 16:30 WBC RBC Hgb Hct MCV MCH MCHC RDW Plt Count MPV Gran % Lymph % (Auto) [place]hing % (Auto) Eos % (Auto) Baso % (Auto) Gran # Lymph # (Auto) [place]hing # (Auto) Eos # (Auto) Baso # (Auto) Neutrophils % (Manual) Band Neutrophils % Lymphocytes % (Manual) Monocytes % (Manual) Platelet Evaluation Hypochromasia Anisocytosis (manual) ESR 150 H Sodium 136 Potassium 5.5 H Chloride 103 Carbon Dioxide 19 L Anion Gap 19 BUN 106 H Creatinine 10.5 H* Est GFR ( Amer) 4 Est GFR (Non-Af Amer) 4 Random Glucose 176 H Calcium 9.0 Phosphorus Magnesium Total Bilirubin AST ALT Alkaline Phosphatase NT-Pro-B Natriuret Pep Total Protein Albumin Globulin Albumin/Globulin Ratio Urine Color Urine Appearance Urine pH Ur Specific [place] Urine Protein Urine Glucose (UA) Urine Ketones Urine Blood Urine Nitrate Urine Bilirubin Urine Urobilinogen Ur Leukocyte Esterase Urine RBC Urine WBC Ur Epithelial Cells Urine Bacteria Coarse Granular Casts Complement C3 143.0 Complement C4 46.9 H Hep Bs Antigen Hep Bs Antibody Hep B Core IgM Ab 10/22/18 10/22/18 10/23/18 16:30 16:30 00:01 WBC RBC Hgb Hct MCV MCH MCHC RDW Plt Count MPV Gran % Lymph % (Auto) [place] % (Auto) Eos % (Auto) Baso % (Auto) Gran # Lymph # (Auto) [place] # (Auto) Eos # (Auto) Baso # (Auto) Neutrophils % (Manual) Band Neutrophils % Lymphocytes % (Manual) Monocytes % (Manual) Platelet Evaluation Hypochromasia Anisocytosis (manual) ESR Sodium Potassium Chloride Carbon Dioxide Anion Gap BUN Creatinine Est GFR ( Amer) Est GFR (Non-Af Amer) Random Glucose Calcium Phosphorus Magnesium Total Bilirubin AST ALT Alkaline Phosphatase NT-Pro-B Natriuret Pep Total Protein Albumin Globulin Albumin/Globulin Ratio Urine Color Yellow Urine Appearance Clear Urine pH 5.5 Ur Specific [place] 1.020 Urine Protein 30 H Urine Glucose (UA) Negative Urine Ketones Negative Urine Blood Large H Urine Nitrate Negative Urine Bilirubin Negative Urine Urobilinogen 0.2 Ur Leukocyte Esterase Small H Urine RBC 20 - 25 H Urine WBC 10 - 15 H Ur Epithelial Cells 0 - 2 Urine Bacteria Trace Coarse Granular Casts Complement C3 Complement C4 Hep Bs Antigen Negative Hep Bs Antibody Negative Hep B Core IgM Ab Negative 10/23/18 10/23/18 10/23/18 02:35 02:35 06:50 WBC 19.7 H 21.6 H RBC 3.05 L 3.25 L Hgb 8.9 L 9.3 L Hct 27.2 L 29.3 L MCV 89.2 90.2 MCH 29.2 28.6 MCHC 32.7 31.7 RDW 13.6 13.7 Plt Count 380 416 MPV 9.9 10.0 Gran % 94.0 H 92.9 H Lymph % (Auto) 5.7 L 5.9 L Pershing % (Auto) 0.3 L 1.2 Eos % (Auto) 0.0 L 0.0 L Baso % (Auto) 0.0 0.0 Gran # 18.53 H 20.08 H Lymph # (Auto) 1.1 L 1.3 Pershing # (Auto) 0.1 0.3 Eos # (Auto) 0.0 0.0 Baso # (Auto) 0.00 0.01 Neutrophils % (Manual) 93 H Band Neutrophils % 1 Lymphocytes % (Manual) 4 L Monocytes % (Manual) 2 Platelet Evaluation Normal Hypochromasia Slight Anisocytosis (manual) Slight ESR Sodium 135 Potassium 6.0 H* Chloride 105 Carbon Dioxide 18 L Anion Gap 18 BUN 107 H Creatinine 10.6 H* Est GFR ( Amer) 4 Est GFR (Non-Af Amer) 4 Random Glucose 124 H Calcium 8.4 Phosphorus 6.0 H Magnesium 2.5 H Total Bilirubin AST ALT Alkaline Phosphatase NT-Pro-B Natriuret Pep Total Protein Albumin Globulin Albumin/Globulin Ratio Urine Color Urine Appearance Urine pH Ur Specific [place] Urine Protein Urine Glucose (UA) Urine Ketones Urine Blood Urine Nitrate Urine Bilirubin Urine Urobilinogen Ur Leukocyte Esterase Urine RBC Urine WBC Ur Epithelial Cells Urine Bacteria Coarse Granular Casts Complement C3 Complement C4 Hep Bs Antigen Hep Bs Antibody Hep B Core IgM Ab Radiology Impressions: Radiology Impressions Abdomen Ultrasound 10/22/18 13:24 IMPRESSION: Hepatic steatosis, otherwise unremarkable study. Chest X-Ray 10/22/18 13:24 IMPRESSION: No active disease. Interventional Vascular Procedure 10/22/18 15:47 IMPRESSION: 1. Ultrasound and fluoroscopically placed right IJ tunneled dialysis catheter. EKG/Cardiology Studies: Cardiology / EKG Studies 10/22/18 13:18 EKG [ELECTROCARDIOGRAM] Stat Comment: Reason For Exam: KIDNEY PROBLEM Fingerstick Blood Sugar Results: 156 Review of Systems - Review of Systems Review of Systems: 12 point ROS completed and negative except as described above. 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 Neuro: - Monitor for focal neurologic deficits, currently AAOx3 - Reorient patient as necessary Nephro: ANA - Likely secondary to granulomatosis with polyangiitis exacerbation - Monitor leukocytosis, currently improved to 21.6 - Monitor BUN and Cr, currently 107/10.4 - UA shows bacteria and granular casts - Monitor K level, currently 5.6 - Maintain dialysis catheter, placed on 10/22/[address] Reyes Cross - Replete electrolytes as needed - Maintain euvolemia - Renal Consult - Dr. Randall, recommends C3,C4, ANCA titers, empiric steroids and cytox, hold BP meds, check phos, start Aranesp and PRN Fe. - Solu-medrol 500 mg IV BID currently per renal recs. - Hemodialysis scheduled for today with Dr. Randall, after which patient will likely be downgraded. - IR consulted - Dr. Reyes Cross- for renal biopsy, plan for tomorrow Endo: - Hyperkalemia - Monitor Potassium, currently 5.6, improved from yesterday - Provide Ca, D5, Insulin, Kayexalate if Potassium remains elevated - Follow up repeat BMP Continue random glucose checks Maintain euglycemia GI: - 10/22/18 Ab US: shows hepatic steatosis - Continue renal diet - GI ppx with protonix Pulm: - 10/22/18 CXR: shows no significant abnormalities - Maintain O2 saturation >92%, currently sating well on room air with no signs of respiratory distress - O2 NC PRN - Maintain head of bed at 30 degrees Cardio: - Monitor for s/s of hemodynamic compromise, patient is currently cardiovascularly intact - No new EKG needed at this time, previous EKG showed NSR @ 60 bpm, no ST/T changes - Hold home losartan due to renal insult, BP controlled at this time - Maintain MAP > 65 Heme: - Anemia - Monitor Hgb, currently 9.2 - Monitor for S/S of anemia DVT PPx: - Hep 5000 SC q8 Dispo: Plan to downgrade after tolerating HD Patient seen, case reviewed and plan approved by Dr. Russell. Anshul Rodriguez, PGY-1 <Mark Russell - Last Filed: 10/23/18 12:51> CCU Objective - Vital Signs / Intake & Output Intake and Output (Last 8hrs): Intake & Output 10/22/18 10/23/18 10/23/18 22:59 06:59 14:59 Intake Total 1740 Output Total 75 Balance 1665 Weight 130 lb 134 lb Intake: IV 840 Left Antecubital 840 Oral 900 Output: Urine 75 Urine, Voided 75 Other: Voiding Method Toilet # Voids Urine, Voided 1 - Medications Active Medications: Active Medications Generic Name Dose Route Start Last Admin Trade Name Freq PRN Reason Stop Dose Admin Calcium Acetate 667 mg 10/23/18 12:00 Phoslo PO WM BAKARI Dextrose 0 ml 10/22/18 14:12 Dextrose 50% Inj IV STAT PRN Hypoglycemia Protocol Protocol Heparin Sodium (Porcine) 5,000 units 10/22/18 22:00 10/23/18 06:15 Heparin SC 5,000 units Q8 BAKARI Administration Protocol Dextrose 1,000 mls @ 0 mls/hr 10/22/18 14:12 Dextrose 5% In Water 1000 Ml IV .Q0M PRN Hypoglycemia Protocol Protocol Per Protocol Methylprednisolone 500 mg/ 100 mls @ 100 mls/hr 10/23/18 09:00 Sodium Chloride IVPB Q12H [facility] Influenza Virus Vaccine 60 mcg 10/22/18 22:36 Flucelvax Quad 3010-8261 Syr IM .ONCE ONE Pantoprazole Sodium 40 mg 10/23/18 06:00 10/23/18 06:14 Protonix Ec Tab PO 40 mg 0600 [facility] Administration - Patient Studies Lab Studies: Lab Studies 10/23/18 10/23/18 10/23/18 Range/Units 09:30 06:50 06:50 WBC (4.5-11.0) 10^3/uL RBC (3.5-6.1) 10^6/uL Hgb (12.0-16.0) g/dL Hct (36.0-48.0) % MCV (80.0-105.0) fl MCH (25.0-35.0) pg MCHC (31.0-37.0) g/dl RDW (11.5-14.5) % Plt Count (120.0-450.0) 10^3/uL MPV (7.0-11.0) fl Gran % (50.0-68.0) % Lymph % (Auto) (22.0-35.0) % [place] % (Auto) (1.0-6.0) % Eos % (Auto) (1.5-5.0) % Baso % (Auto) (0.0-3.0) % Gran # (1.4-6.5) Lymph # (Auto) (1.2-3.4) [place]hing # (Auto) (0.1-0.6) Eos # (Auto) (0.0-0.7) Baso # (Auto) (0.0-2.0) K/mm3 Neutrophils % (Manual) (50.0-70.0) % Band Neutrophils % (0-2) % Lymphocytes % (Manual) (22.0-35.0) % Monocytes % (Manual) (1.0-6.0) % Platelet Evaluation (NORMAL) Hypochromasia Anisocytosis (manual) ESR (0.0-20.0) mm/hr PT 12.2 (9.4-12.5) SECONDS INR 1.06 APTT 33.4 (25.1-36.5) Seconds Sodium (132-148) mmol/L Potassium (3.6-5.0) mmol/L Chloride (98-107) mmol/L Carbon Dioxide (21-33) mmol/L Anion Gap (10-20) BUN (7-21) mg/dL Creatinine (0.7-1.2) mg/dl Est GFR ( Amer) Est GFR (Non-Af Amer) Random Glucose (70-110) mg/dL Calcium (8.4-10.5) mg/dL Phosphorus (2.5-4.5) mg/dL Magnesium (1.7-2.2) mg/dL Iron 118 (45-180) ug/dL TIBC 155 L (265-497) ug/dL % Saturation 76 H (20-55) % Total Bilirubin (0.2-1.3) mg/dL AST (14-36) U/L ALT (7-56) U/L Alkaline Phosphatase (38-126) U/L NT-Pro-B Natriuret Pep (0-450) pg/mL Total Protein (5.8-8.3) g/dL Albumin (3.0-4.8) g/dL Globulin gm/dL Albumin/Globulin Ratio (1.1-1.8) Urine Color (YELLOW) Urine Appearance (CLEAR) Urine pH (4.7-8.0) Ur Specific [place] (1.005-1.035) Urine Protein (<30 mg/dL) mg/dL Urine Glucose (UA) (NEGATIVE) mg/dL Urine Ketones (NEGATIVE) mg/dL Urine Blood (NEGATIVE) Urine Nitrate (NEGATIVE) Urine Bilirubin (NEGATIVE) Urine Urobilinogen (<1 E.U./dL) E.U./dL Ur Leukocyte Esterase (NEGATIVE) [place]/uL Urine RBC (0-2) /hpf Urine WBC (0-6) /hpf Ur Epithelial Cells (0-5) /hpf Urine Bacteria (NONE) /hpf Coarse Granular Casts (NONE) /hpf Complement C3 (88.0-165.0) mg/dL Complement C4 (14.0-44.0) mg/dL Hep Bs Antigen (NEGATIVE) Hep Bs Antibody (NEGATIVE) Hep B Core IgM Ab (NEGATIVE) 10/23/18 10/23/18 10/23/18 Range/Units 06:50 06:50 02:35 WBC 21.6 H (4.5-11.0) 10^3/uL RBC 3.25 L (3.5-6.1) 10^6/uL Hgb 9.3 L (12.0-16.0) g/dL Hct 29.3 L (36.0-48.0) % MCV 90.2 (80.0-105.0) fl MCH 28.6 (25.0-35.0) pg MCHC 31.7 (31.0-37.0) g/dl RDW 13.7 (11.5-14.5) % Plt Count 416 (120.0-450.0) 10^3/uL MPV 10.0 (7.0-11.0) fl Gran % 92.9 H (50.0-68.0) % Lymph % (Auto) 5.9 L (22.0-35.0) % Pershing % (Auto) 1.2 (1.0-6.0) % Eos % (Auto) 0.0 L (1.5-5.0) % Baso % (Auto) 0.0 (0.0-3.0) % Gran # 20.08 H (1.4-6.5) Lymph # (Auto) 1.3 (1.2-3.4) [place]hing # (Auto) 0.3 (0.1-0.6) Eos # (Auto) 0.0 (0.0-0.7) Baso # (Auto) 0.01 (0.0-2.0) K/mm3 Neutrophils % (Manual) (50.0-70.0) % Band Neutrophils % (0-2) % Lymphocytes % (Manual) (22.0-35.0) % Monocytes % (Manual) (1.0-6.0) % Platelet Evaluation (NORMAL) Hypochromasia Anisocytosis (manual) ESR (0.0-20.0) mm/hr PT (9.4-12.5) SECONDS INR APTT (25.1-36.5) Seconds Sodium 135 135 (132-148) mmol/L Potassium 5.6 H* 6.0 H* (3.6-5.0) mmol/L Chloride 106 105 (98-107) mmol/L Carbon Dioxide 16 L 18 L (21-33) mmol/L Anion Gap 18 18 (10-20) BUN 107 H 107 H (7-21) mg/dL Creatinine 10.4 H* 10.6 H* (0.7-1.2) mg/dl Est GFR ( Amer) 4 4 Est GFR (Non-Af Amer) 4 4 Random Glucose 114 H 124 H (70-110) mg/dL Calcium 8.5 8.4 (8.4-10.5) mg/dL Phosphorus 6.0 H (2.5-4.5) mg/dL Magnesium 2.5 H (1.7-2.2) mg/dL Iron (45-180) ug/dL TIBC (265-497) ug/dL % Saturation (20-55) % Total Bilirubin 0.3 (0.2-1.3) mg/dL AST 18 (14-36) U/L ALT 15 (7-56) U/L Alkaline Phosphatase 91 (38-126) U/L NT-Pro-B Natriuret Pep (0-450) pg/mL Total Protein 7.0 (5.8-8.3) g/dL Albumin 3.4 (3.0-4.8) g/dL Globulin 3.6 gm/dL Albumin/Globulin Ratio 0.9 L (1.1-1.8) Urine Color (YELLOW) Urine Appearance (CLEAR) Urine pH (4.7-8.0) Ur Specific [place] (1.005-1.035) Urine Protein (<30 mg/dL) mg/dL Urine Glucose (UA) (NEGATIVE) mg/dL Urine Ketones (NEGATIVE) mg/dL Urine Blood (NEGATIVE) Urine Nitrate (NEGATIVE) Urine Bilirubin (NEGATIVE) Urine Urobilinogen (<1 E.U./dL) E.U./dL Ur Leukocyte Esterase (NEGATIVE) [place]/uL Urine RBC (0-2) /hpf Urine WBC (0-6) /hpf Ur Epithelial Cells (0-5) /hpf Urine Bacteria (NONE) /hpf Coarse Granular Casts (NONE) /hpf Complement C3 (88.0-165.0) mg/dL Complement C4 (14.0-44.0) mg/dL Hep Bs Antigen (NEGATIVE) Hep Bs Antibody (NEGATIVE) Hep B Core IgM Ab (NEGATIVE) 10/23/18 10/23/18 10/22/18 Range/Units 02:35 00:01 16:30 WBC 19.7 H (4.5-11.0) 10^3/uL RBC 3.05 L (3.5-6.1) 10^6/uL Hgb 8.9 L (12.0-16.0) g/dL Hct 27.2 L (36.0-48.0) % MCV 89.2 (80.0-105.0) fl MCH 29.2 (25.0-35.0) pg MCHC 32.7 (31.0-37.0) g/dl RDW 13.6 (11.5-14.5) % Plt Count 380 (120.0-450.0) 10^3/uL MPV 9.9 (7.0-11.0) fl Gran % 94.0 H (50.0-68.0) % Lymph % (Auto) 5.7 L (22.0-35.0) % Pershing % (Auto) 0.3 L (1.0-6.0) % Eos % (Auto) 0.0 L (1.5-5.0) % Baso % (Auto) 0.0 (0.0-3.0) % Gran # 18.53 H (1.4-6.5) Lymph # (Auto) 1.1 L (1.2-3.4) Pershing # (Auto) 0.1 (0.1-0.6) Eos # (Auto) 0.0 (0.0-0.7) Baso # (Auto) 0.00 (0.0-2.0) K/mm3 Neutrophils % (Manual) 93 H (50.0-70.0) % Band Neutrophils % 1 (0-2) % Lymphocytes % (Manual) 4 L (22.0-35.0) % Monocytes % (Manual) 2 (1.0-6.0) % Platelet Evaluation Normal (NORMAL) Hypochromasia Slight Anisocytosis (manual) Slight ESR (0.0-20.0) mm/hr PT (9.4-12.5) SECONDS INR APTT (25.1-36.5) Seconds Sodium (132-148) mmol/L Potassium (3.6-5.0) mmol/L Chloride (98-107) mmol/L Carbon Dioxide (21-33) mmol/L Anion Gap (10-20) BUN (7-21) mg/dL Creatinine (0.7-1.2) mg/dl Est GFR ( Amer) Est GFR (Non-Af Amer) Random Glucose (70-110) mg/dL Calcium (8.4-10.5) mg/dL Phosphorus (2.5-4.5) mg/dL Magnesium (1.7-2.2) mg/dL Iron (45-180) ug/dL TIBC (265-497) ug/dL % Saturation (20-55) % Total Bilirubin (0.2-1.3) mg/dL AST (14-36) U/L ALT (7-56) U/L Alkaline Phosphatase (38-126) U/L NT-Pro-B Natriuret Pep (0-450) pg/mL Total Protein (5.8-8.3) g/dL Albumin (3.0-4.8) g/dL Globulin gm/dL Albumin/Globulin Ratio (1.1-1.8) Urine Color Yellow (YELLOW) Urine Appearance Clear (CLEAR) Urine pH 5.5 (4.7-8.0) Ur Specific [place] 1.020 (1.005-1.035) Urine Protein 30 H (<30 mg/dL) mg/dL Urine Glucose (UA) Negative (NEGATIVE) mg/dL Urine Ketones Negative (NEGATIVE) mg/dL Urine Blood Large H (NEGATIVE) Urine Nitrate Negative (NEGATIVE) Urine Bilirubin Negative (NEGATIVE) Urine Urobilinogen 0.2 (<1 E.U./dL) E.U./dL Ur Leukocyte Esterase Small H (NEGATIVE) [place]/uL Urine RBC 20 - 25 H (0-2) /hpf Urine WBC 10 - 15 H (0-6) /hpf Ur Epithelial Cells 0 - 2 (0-5) /hpf Urine Bacteria Trace (NONE) /hpf Coarse Granular Casts (NONE) /hpf Complement C3 (88.0-165.0) mg/dL Complement C4 (14.0-44.0) mg/dL Hep Bs Antigen (NEGATIVE) Hep Bs Antibody Negative (NEGATIVE) Hep B Core IgM Ab (NEGATIVE) 10/22/18 10/22/18 10/22/18 Range/Units 16:30 16:30 16:30 WBC (4.5-11.0) 10^3/uL RBC (3.5-6.1) 10^6/uL Hgb (12.0-16.0) g/dL Hct (36.0-48.0) % MCV (80.0-105.0) fl MCH (25.0-35.0) pg MCHC (31.0-37.0) g/dl RDW (11.5-14.5) % Plt Count (120.0-450.0) 10^3/uL MPV (7.0-11.0) fl Gran % (50.0-68.0) % Lymph % (Auto) (22.0-35.0) % Pershing % (Auto) (1.0-6.0) % Eos % (Auto) (1.5-5.0) % Baso % (Auto) (0.0-3.0) % Gran # (1.4-6.5) Lymph # (Auto) (1.2-3.4) Pershing # (Auto) (0.1-0.6) Eos # (Auto) (0.0-0.7) Baso # (Auto) (0.0-2.0) K/mm3 Neutrophils % (Manual) (50.0-70.0) % Band Neutrophils % (0-2) % Lymphocytes % (Manual) (22.0-35.0) % Monocytes % (Manual) (1.0-6.0) % Platelet Evaluation (NORMAL) Hypochromasia Anisocytosis (manual) ESR (0.0-20.0) mm/hr PT (9.4-12.5) SECONDS INR APTT (25.1-36.5) Seconds Sodium 136 (132-148) mmol/L Potassium 5.5 H (3.6-5.0) mmol/L Chloride 103 (98-107) mmol/L Carbon Dioxide 19 L (21-33) mmol/L Anion Gap 19 (10-20) BUN 106 H (7-21) mg/dL Creatinine 10.5 H* (0.7-1.2) mg/dl Est GFR ( Amer) 4 Est GFR (Non-Af Amer) 4 Random Glucose 176 H (70-110) mg/dL Calcium 9.0 (8.4-10.5) mg/dL Phosphorus (2.5-4.5) mg/dL Magnesium (1.7-2.2) mg/dL Iron (45-180) ug/dL TIBC (265-497) ug/dL % Saturation (20-55) % Total Bilirubin (0.2-1.3) mg/dL AST (14-36) U/L ALT (7-56) U/L Alkaline Phosphatase (38-126) U/L NT-Pro-B Natriuret Pep (0-450) pg/mL Total Protein (5.8-8.3) g/dL Albumin (3.0-4.8) g/dL Globulin gm/dL Albumin/Globulin Ratio (1.1-1.8) Urine Color (YELLOW) Urine Appearance (CLEAR) Urine pH (4.7-8.0) Ur Specific [place] (1.005-1.035) Urine Protein (<30 mg/dL) mg/dL Urine Glucose (UA) (NEGATIVE) mg/dL Urine Ketones (NEGATIVE) mg/dL Urine Blood (NEGATIVE) Urine Nitrate (NEGATIVE) Urine Bilirubin (NEGATIVE) Urine Urobilinogen (<1 E.U./dL) E.U./dL Ur Leukocyte Esterase (NEGATIVE) [place]/uL Urine RBC (0-2) /hpf Urine WBC (0-6) /hpf Ur Epithelial Cells (0-5) /hpf Urine Bacteria (NONE) /hpf Coarse Granular Casts (NONE) /hpf Complement C3 143.0 (88.0-165.0) mg/dL Complement C4 46.9 H (14.0-44.0) mg/dL Hep Bs Antigen Negative (NEGATIVE) Hep Bs Antibody (NEGATIVE) Hep B Core IgM Ab Negative (NEGATIVE) 10/22/18 10/22/18 10/22/18 Range/Units 16:00 13:36 13:36 WBC (4.5-11.0) 10^3/uL RBC (3.5-6.1) 10^6/uL Hgb (12.0-16.0) g/dL Hct (36.0-48.0) % MCV (80.0-105.0) fl MCH (25.0-35.0) pg MCHC (31.0-37.0) g/dl RDW (11.5-14.5) % Plt Count (120.0-450.0) 10^3/uL MPV (7.0-11.0) fl Gran % (50.0-68.0) % Lymph % (Auto) (22.0-35.0) % Pershing % (Auto) (1.0-6.0) % Eos % (Auto) (1.5-5.0) % Baso % (Auto) (0.0-3.0) % Gran # (1.4-6.5) Lymph # (Auto) (1.2-3.4) Pershing # (Auto) (0.1-0.6) Eos # (Auto) (0.0-0.7) Baso # (Auto) (0.0-2.0) K/mm3 Neutrophils % (Manual) (50.0-70.0) % Band Neutrophils % (0-2) % Lymphocytes % (Manual) (22.0-35.0) % Monocytes % (Manual) (1.0-6.0) % Platelet Evaluation (NORMAL) Hypochromasia Anisocytosis (manual) ESR 150 H (0.0-20.0) mm/hr PT (9.4-12.5) SECONDS INR APTT (25.1-36.5) Seconds Sodium 134 (132-148) mmol/L Potassium 6.5 H* D (3.6-5.0) mmol/L Chloride 101 (98-107) mmol/L Carbon Dioxide 20 L (21-33) mmol/L Anion Gap 20 (10-20) BUN 106 H (7-21) mg/dL Creatinine 11.2 H* (0.7-1.2) mg/dl Est GFR ( Amer) 4 Est GFR (Non-Af Amer) 3 Random Glucose 151 H (70-110) mg/dL Calcium 9.1 (8.4-10.5) mg/dL Phosphorus (2.5-4.5) mg/dL Magnesium (1.7-2.2) mg/dL Iron (45-180) ug/dL TIBC (265-497) ug/dL % Saturation (20-55) % Total Bilirubin 0.4 (0.2-1.3) mg/dL AST 25 (14-36) U/L ALT 25 (7-56) U/L Alkaline Phosphatase 108 (38-126) U/L NT-Pro-B Natriuret Pep 4110 H (0-450) pg/mL Total Protein 7.7 (5.8-8.3) g/dL Albumin 3.7 (3.0-4.8) g/dL Globulin 3.9 gm/dL Albumin/Globulin Ratio 0.9 L (1.1-1.8) Urine Color Yellow (YELLOW) Urine Appearance Turbid (CLEAR) Urine pH 6.0 (4.7-8.0) Ur Specific [place] 1.025 (1.005-1.035) Urine Protein 100 H (<30 mg/dL) mg/dL Urine Glucose (UA) Negative (NEGATIVE) mg/dL Urine Ketones Negative (NEGATIVE) mg/dL Urine Blood Large H (NEGATIVE) Urine Nitrate Negative (NEGATIVE) Urine Bilirubin Negative (NEGATIVE) Urine Urobilinogen 0.2 (<1 E.U./dL) E.U./dL Ur Leukocyte Esterase Moderate H (NEGATIVE) [place]/uL Urine RBC 25 - 30 H (0-2) /hpf Urine WBC 10 - 15 H (0-6) /hpf Ur Epithelial Cells 4 - 5 (0-5) /hpf Urine Bacteria Many (NONE) /hpf Coarse Granular Casts Small (NONE) /hpf Complement C3 (88.0-165.0) mg/dL Complement C4 (14.0-44.0) mg/dL Hep Bs Antigen (NEGATIVE) Hep Bs Antibody (NEGATIVE) Hep B Core IgM Ab (NEGATIVE) 10/22/18 Range/Units 13:36 WBC 24.6 H (4.5-11.0) 10^3/uL RBC 3.13 L (3.5-6.1) 10^6/uL Hgb 9.2 L (12.0-16.0) g/dL Hct 28.2 L (36.0-48.0) % MCV 90.1 (80.0-105.0) fl MCH 29.4 (25.0-35.0) pg MCHC 32.6 (31.0-37.0) g/dl RDW 13.5 (11.5-14.5) % Plt Count 406 (120.0-450.0) 10^3/uL MPV 10.2 (7.0-11.0) fl Gran % (50.0-68.0) % Lymph % (Auto) (22.0-35.0) % Pershing % (Auto) (1.0-6.0) % Eos % (Auto) (1.5-5.0) % Baso % (Auto) (0.0-3.0) % Gran # (1.4-6.5) Lymph # (Auto) (1.2-3.4) Pershing # (Auto) (0.1-0.6) Eos # (Auto) (0.0-0.7) Baso # (Auto) (0.0-2.0) K/mm3 Neutrophils % (Manual) (50.0-70.0) % Band Neutrophils % (0-2) % Lymphocytes % (Manual) (22.0-35.0) % Monocytes % (Manual) (1.0-6.0) % Platelet Evaluation (NORMAL) Hypochromasia Anisocytosis (manual) ESR (0.0-20.0) mm/hr PT (9.4-12.5) SECONDS INR APTT (25.1-36.5) Seconds Sodium (132-148) mmol/L Potassium (3.6-5.0) mmol/L Chloride (98-107) mmol/L Carbon Dioxide (21-33) mmol/L Anion Gap (10-20) BUN (7-21) mg/dL Creatinine (0.7-1.2) mg/dl Est GFR ( Amer) Est GFR (Non-Af Amer) Random Glucose (70-110) mg/dL Calcium (8.4-10.5) mg/dL Phosphorus (2.5-4.5) mg/dL Magnesium (1.7-2.2) mg/dL Iron (45-180) ug/dL TIBC (265-497) ug/dL % Saturation (20-55) % Total Bilirubin (0.2-1.3) mg/dL AST (14-36) U/L ALT (7-56) U/L Alkaline Phosphatase (38-126) U/L NT-Pro-B Natriuret Pep (0-450) pg/mL Total Protein (5.8-8.3) g/dL Albumin (3.0-4.8) g/dL Globulin gm/dL Albumin/Globulin Ratio (1.1-1.8) Urine Color (YELLOW) Urine Appearance (CLEAR) Urine pH (4.7-8.0) Ur Specific [place] (1.005-1.035) Urine Protein (<30 mg/dL) mg/dL Urine Glucose (UA) (NEGATIVE) mg/dL Urine Ketones (NEGATIVE) mg/dL Urine Blood (NEGATIVE) Urine Nitrate (NEGATIVE) Urine Bilirubin (NEGATIVE) Urine Urobilinogen (<1 E.U./dL) E.U./dL Ur Leukocyte Esterase (NEGATIVE) [place]/uL Urine RBC (0-2) /hpf Urine WBC (0-6) /hpf Ur Epithelial Cells (0-5) /hpf Urine Bacteria (NONE) /hpf Coarse Granular Casts (NONE) /hpf Complement C3 (88.0-165.0) mg/dL Complement C4 (14.0-44.0) mg/dL Hep Bs Antigen (NEGATIVE) Hep Bs Antibody (NEGATIVE) Hep B Core IgM Ab (NEGATIVE) Laboratory Results - last 24 hr 10/22/18 10/22/18 10/22/18 13:36 13:36 13:36 WBC 24.6 H RBC 3.13 L Hgb 9.2 L Hct 28.2 L MCV 90.1 MCH 29.4 MCHC 32.6 RDW 13.5 Plt Count 406 MPV 10.2 Gran % Lymph % (Auto) [place] % (Auto) Eos % (Auto) Baso % (Auto) Gran # Lymph # (Auto) [place] # (Auto) Eos # (Auto) Baso # (Auto) Neutrophils % (Manual) Band Neutrophils % Lymphocytes % (Manual) Monocytes % (Manual) Platelet Evaluation Hypochromasia Anisocytosis (manual) ESR PT INR APTT Sodium 134 Potassium 6.5 H* D Chloride 101 Carbon Dioxide 20 L Anion Gap 20 BUN 106 H Creatinine 11.2 H* Est GFR ( Amer) 4 Est GFR (Non-Af Amer) 3 Random Glucose 151 H Calcium 9.1 Phosphorus Magnesium Iron TIBC % Saturation Total Bilirubin 0.4 AST 25 ALT 25 Alkaline Phosphatase 108 NT-Pro-B Natriuret Pep 4110 H Total Protein 7.7 Albumin 3.7 Globulin 3.9 Albumin/Globulin Ratio 0.9 L Urine Color Yellow Urine Appearance Turbid Urine pH 6.0 Ur Specific [place] 1.025 Urine Protein 100 H Urine Glucose (UA) Negative Urine Ketones Negative Urine Blood Large H Urine Nitrate Negative Urine Bilirubin Negative Urine Urobilinogen 0.2 Ur Leukocyte Esterase Moderate H Urine RBC 25 - 30 H Urine WBC 10 - 15 H Ur Epithelial Cells 4 - 5 Urine Bacteria Many Coarse Granular Casts Small Complement C3 Complement C4 Hep Bs Antigen Hep Bs Antibody Hep B Core IgM Ab 10/22/18 10/22/18 10/22/18 16:00 16:30 16:30 WBC RBC Hgb Hct MCV MCH MCHC RDW Plt Count MPV Gran % Lymph % (Auto) [place] % (Auto) Eos % (Auto) Baso % (Auto) Gran # Lymph # (Auto) [place] # (Auto) Eos # (Auto) Baso # (Auto) Neutrophils % (Manual) Band Neutrophils % Lymphocytes % (Manual) Monocytes % (Manual) Platelet Evaluation Hypochromasia Anisocytosis (manual) ESR 150 H PT INR APTT Sodium 136 Potassium 5.5 H Chloride 103 Carbon Dioxide 19 L Anion Gap 19 BUN 106 H Creatinine 10.5 H* Est GFR ( Amer) 4 Est GFR (Non-Af Amer) 4 Random Glucose 176 H Calcium 9.0 Phosphorus Magnesium Iron TIBC % Saturation Total Bilirubin AST ALT Alkaline Phosphatase NT-Pro-B Natriuret Pep Total Protein Albumin Globulin Albumin/Globulin Ratio Urine Color Urine Appearance Urine pH Ur Specific [place] Urine Protein Urine Glucose (UA) Urine Ketones Urine Blood Urine Nitrate Urine Bilirubin Urine Urobilinogen Ur Leukocyte Esterase Urine RBC Urine WBC Ur Epithelial Cells Urine Bacteria Coarse Granular Casts Complement C3 143.0 Complement C4 46.9 H Hep Bs Antigen Hep Bs Antibody Hep B Core IgM Ab 10/22/18 10/22/18 10/23/18 16:30 16:30 00:01 WBC RBC Hgb Hct MCV MCH MCHC RDW Plt Count MPV Gran % Lymph % (Auto) [place] % (Auto) Eos % (Auto) Baso % (Auto) Gran # Lymph # (Auto) [place] # (Auto) Eos # (Auto) Baso # (Auto) Neutrophils % (Manual) Band Neutrophils % Lymphocytes % (Manual) Monocytes % (Manual) Platelet Evaluation Hypochromasia Anisocytosis (manual) ESR PT INR APTT Sodium Potassium Chloride Carbon Dioxide Anion Gap BUN Creatinine Est GFR ( Amer) Est GFR (Non-Af Amer) Random Glucose Calcium Phosphorus Magnesium Iron TIBC % Saturation Total Bilirubin AST ALT Alkaline Phosphatase NT-Pro-B Natriuret Pep Total Protein Albumin Globulin Albumin/Globulin Ratio Urine Color Yellow Urine Appearance Clear Urine pH 5.5 Ur Specific [place] 1.020 Urine Protein 30 H Urine Glucose (UA) Negative Urine Ketones Negative Urine Blood Large H Urine Nitrate Negative Urine Bilirubin Negative Urine Urobilinogen 0.2 Ur Leukocyte Esterase Small H Urine RBC 20 - 25 H Urine WBC 10 - 15 H Ur Epithelial Cells 0 - 2 Urine Bacteria Trace Coarse Granular Casts Complement C3 Complement C4 Hep Bs Antigen Negative Hep Bs Antibody Negative Hep B Core IgM Ab Negative 10/23/18 10/23/18 10/23/18 02:35 02:35 06:50 WBC 19.7 H 21.6 H RBC 3.05 L 3.25 L Hgb 8.9 L 9.3 L Hct 27.2 L 29.3 L MCV 89.2 90.2 MCH 29.2 28.6 MCHC 32.7 31.7 RDW 13.6 13.7 Plt Count 380 416 MPV 9.9 10.0 Gran % 94.0 H 92.9 H Lymph % (Auto) 5.7 L 5.9 L Pershing % (Auto) 0.3 L 1.2 Eos % (Auto) 0.0 L 0.0 L Baso % (Auto) 0.0 0.0 Gran # 18.53 H 20.08 H Lymph # (Auto) 1.1 L 1.3 Pershing # (Auto) 0.1 0.3 Eos # (Auto) 0.0 0.0 Baso # (Auto) 0.00 0.01 Neutrophils % (Manual) 93 H Band Neutrophils % 1 Lymphocytes % (Manual) 4 L Monocytes % (Manual) 2 Platelet Evaluation Normal Hypochromasia Slight Anisocytosis (manual) Slight ESR PT INR APTT Sodium 135 Potassium 6.0 H* Chloride 105 Carbon Dioxide 18 L Anion Gap 18 BUN 107 H Creatinine 10.6 H* Est GFR ( Amer) 4 Est GFR (Non-Af Amer) 4 Random Glucose 124 H Calcium 8.4 Phosphorus 6.0 H Magnesium 2.5 H Iron TIBC % Saturation Total Bilirubin AST ALT Alkaline Phosphatase NT-Pro-B Natriuret Pep Total Protein Albumin Globulin Albumin/Globulin Ratio Urine Color Urine Appearance Urine pH Ur Specific [place] Urine Protein Urine Glucose (UA) Urine Ketones Urine Blood Urine Nitrate Urine Bilirubin Urine Urobilinogen Ur Leukocyte Esterase Urine RBC Urine WBC Ur Epithelial Cells Urine Bacteria Coarse Granular Casts Complement C3 Complement C4 Hep Bs Antigen Hep Bs Antibody Hep B Core IgM Ab 10/23/18 10/23/18 10/23/18 06:50 06:50 06:50 WBC RBC Hgb Hct MCV MCH MCHC RDW Plt Count MPV Gran % Lymph % (Auto) [place]hing % (Auto) Eos % (Auto) Baso % (Auto) Gran # Lymph # (Auto) [place] # (Auto) Eos # (Auto) Baso # (Auto) Neutrophils % (Manual) Band Neutrophils % Lymphocytes % (Manual) Monocytes % (Manual) Platelet Evaluation Hypochromasia Anisocytosis (manual) ESR PT 12.2 INR 1.06 APTT 33.4 Sodium 135 Potassium 5.6 H* Chloride 106 Carbon Dioxide 16 L Anion Gap 18 BUN 107 H Creatinine 10.4 H* Est GFR ( Amer) 4 Est GFR (Non-Af Amer) 4 Random Glucose 114 H Calcium 8.5 Phosphorus Magnesium Iron TIBC % Saturation Total Bilirubin 0.3 AST 18 ALT 15 Alkaline Phosphatase 91 NT-Pro-B Natriuret Pep Total Protein 7.0 Albumin 3.4 Globulin 3.6 Albumin/Globulin Ratio 0.9 L Urine Color Urine Appearance Urine pH Ur Specific [place] Urine Protein Urine Glucose (UA) Urine Ketones Urine Blood Urine Nitrate Urine Bilirubin Urine Urobilinogen Ur Leukocyte Esterase Urine RBC Urine WBC Ur Epithelial Cells Urine Bacteria Coarse Granular Casts Complement C3 Complement C4 Hep Bs Antigen Hep Bs Antibody Hep B Core IgM Ab 10/23/18 09:30 WBC RBC Hgb Hct MCV MCH MCHC RDW Plt Count MPV Gran % Lymph % (Auto) [place] % (Auto) Eos % (Auto) Baso % (Auto) Gran # Lymph # (Auto) [place] # (Auto) Eos # (Auto) Baso # (Auto) Neutrophils % (Manual) Band Neutrophils % Lymphocytes % (Manual) Monocytes % (Manual) Platelet Evaluation Hypochromasia Anisocytosis (manual) ESR PT INR APTT Sodium Potassium Chloride Carbon Dioxide Anion Gap BUN Creatinine Est GFR ( Amer) Est GFR (Non-Af Amer) Random Glucose Calcium Phosphorus Magnesium Iron 118 TIBC 155 L % Saturation 76 H Total Bilirubin AST ALT Alkaline Phosphatase NT-Pro-B Natriuret Pep Total Protein Albumin Globulin Albumin/Globulin Ratio Urine Color Urine Appearance Urine pH Ur Specific [place] Urine Protein Urine Glucose (UA) Urine Ketones Urine Blood Urine Nitrate Urine Bilirubin Urine Urobilinogen Ur Leukocyte Esterase Urine RBC Urine WBC Ur Epithelial Cells Urine Bacteria Coarse Granular Casts Complement C3 Complement C4 Hep Bs Antigen Hep Bs Antibody Hep B Core IgM Ab Radiology Impressions: Radiology Impressions Abdomen Ultrasound 10/22/18 13:24 IMPRESSION: Hepatic steatosis, otherwise unremarkable study. Chest X-Ray 10/22/18 13:24 IMPRESSION: No active disease. Interventional Vascular Procedure 10/22/18 15:47 IMPRESSION: 1. Ultrasound and fluoroscopically placed right IJ tunneled dialysis catheter. EKG/Cardiology Studies: Cardiology / EKG Studies 10/22/18 13:18 EKG [ELECTROCARDIOGRAM] Stat Comment: Reason For Exam: KIDNEY PROBLEM Critical Care Progress Note - Nutrition Nutrition: Nutrition Category Date Time Status Renal Diet [DIET] Diets 10/22/18 Dinner Ordered Assessment/Plan - Assessment and Plan (Free Text) Assessment: Patient seen and examined on rounds with resident, agree with note with following additions/exceptions: Patient is 68 F with PMHx of granulomatosis with polyangiitis (diagnosed in 06/05 at which point patient received IV steroids, cytoxan, and plasmapharesis for 3 days), invasive ductal carcinoma grade 1 (for which patient received radiation therapy that completed 08/07, and HTN who presents with 3 weeks of lethargy. Patient found to have worsening renal function, increased BUN/Cr, K 6.5 Renal consulted by ER, Dr Randall, undergoing HD today, tolerating well so fa Repeat BMP after HD GI ppx DVT ppx If tolerates HD well, can be transferred afterwards to tele
[2018-10-23 07:41] LABS: INR 1.06; PROTHROMBIN TIME 12.2 SECONDS (9.4-12.5)
[2018-10-23 07:46] LABS: ALB/GLOB RATIO 0.9 (1.1-1.8); ALBUMIN 3.4 g/dL (3.0-4.8); CALCIUM 8.5 mg/dL (8.4-10.5)
[2018-10-23] MEDS ORDERED: Darbepoetin Alfa 60 mcg/ml Inj IV ONE (08:43)
--- NOTE | 2018-10-23 09:32 | PN ---
DATE: 10/23/2018 SUBJECTIVE: The patient is currently seen lying comfortable in bed 4, in the ICU. The patient received medications yesterday which lowered her potassium level down to 5.6. Her creatinine remains elevated at 10.4. She has no uremic symptoms today. No nausea or vomiting. No jitteriness. No tremors or shakes. No shortness of breath or chest pain. No hiccups. The patient is scheduled for her first dialysis today. As I discuss with the family and the ICU house staff, a renal biopsy is tentatively planned for tomorrow. Of note, she has anywhere from trace to 2+ protein in her urine with hematuria. Her ANCA titers are pending. Complement levels are either normal or elevated. MEDICATIONS: Medication list reviewed. The patient is on IV fluid hydration, normal saline 70 mL an hour, subcutaneous heparin, p.o. prednisone and Protonix. OBJECTIVE: INTAKE AND OUTPUT: Intake 1740 and output 75. VITAL SIGNS: Blood pressure presently is 150/71, heart rate is 68, temperature is 98.3 and respiratory rate of 16. HEENT: Shows her to be normocephalic and atraumatic. Conjunctivae are pale. Sclerae are nonicteric. NECK: Supple. No neck vein distention. CHEST: Clear to auscultation and percussion. No rales, rhonchi or wheezing. CARDIOVASCULAR: Shows a regular rate and rhythm with a soft systolic murmur left lower sternal border. No S3, no S4 and no rub. ABDOMEN: Soft. Bowel sounds normal. No rebound, guarding or masses. EXTREMITIES: Show no lower extremity cyanosis, clubbing or edema. LABORATORY DATA AND IMAGING STUDIES: CBC, white blood cell count today 21.6, hemoglobin 9.2 with a platelet count of 416,000. Chemistries, potassium is down to 5.6, sodium 135, chloride 106, CO2 is now down to 16, BUN is 107 with a creatinine of 10.4. Glucose is 114, calcium is 8.5, phosphorus 6.0 with magnesium of 2.5. Liver enzymes are normal. Albumin is 3.4. Her urine showed anywhere from trace to 2+ protein in her urine, positive red blood cells, positive white blood cells. Urine cultures are pending. C3 level is normal. C4 level slightly elevated at 47. Hepatitis serologies are negative. Microbiology, no urine cultures are available for comment as of yet. ASSESSMENT: 1. 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 Her renal ultrasound does not appear to be consistent with an end-stage kidney. ANCA titers are pending. I did discuss with the patient the possibility of doing a renal biopsy tomorrow after we metabolically clean up her blood work. The patient was empirically started on p.o. prednisone, perhaps will start her on IV steroid therapy, if indeed this is inflammatory reactivation of her glomerulonephritis. The patient had received Cytoxan in the past and rituximab. The patient is scheduled to start dialysis shortly. I will be present for her first dialysis. 2. History of hypertension. Will we will not treat her slight elevation of blood pressure presently, will likely drop with dialysis. Losartan had been discontinued. 3. History of anemia. Likely secondary to acute renal failure. No evidence for bleeding. We will check her iron saturations. Aranesp can be given with dialysis. 4. History of breast cancer, status post lumpectomy, currently stable. 5. Elevated phosphorus level, likely secondary hyperparathyroidism in the setting of acute renal failure. Will start binder therapy. 6. Check urine cultures. The patient had white blood cells in her urine. 7. I have ordered a urine electrolytes. Urine eosinophils these are pending. PLAN: 1. Emergent dialysis today. Consents have been signed. 2. Tentatively schedule renal biopsy for tomorrow. 3. Perhaps switch to IV steroids in place of p.o. steroids. 4. Obtain all urine studies I have ordered yesterday. 5. Start binder therapy for her elevated phosphorus level. 6. Check iron saturations and supplement with IV Venofer as necessary. The patient will be started on Aranesp. 7. Discussed with the patient the need to find a reversible course of the renal failure, otherwise she will likely go on to scar her kidney and require chronic dialysis. 8. Case discussed with ICU staff, ICU house staff and manager ems. Greater than 35 minutes spent in the care of this patient. Ovidio Randall MD JELANI
[2018-10-23 10:01] LABS: IRON 118 ug/dL (45-180)
[2018-10-23 10:11] LABS: % IRON SATURATION 76 % (20-55); TOTAL IRON BINDING CAPACITY 155 ug/dL (265-497)
[2018-10-23] MEDS ORDERED: Darbepoetin Alfa 100 mcg/ml Inj IVP ONE (13:00)
[2018-10-23 14:21] LABS: CALCIUM 8.1 mg/dL (8.4-10.5)
--- NOTE | 2018-10-23 15:36 | CP.PCM.APN ---
Subjective - Date & Time of Evaluation Date of Evaluation: 10/23/18 Time of Evaluation: 11:15 - Subjective Subjective: pt seen in ICU with HD in progress at bedside, pt repots felling better and tolerating HD session Review of Systems - Constitutional Constitutional: Fatigue Objective - Vital Signs/Intake and Output Vital Signs (last 24 hours): Temp Pulse Resp BP Pulse Ox 98.3 F 68 16 150/71 100 10/22/18 20:21 10/23/18 06:00 10/22/18 22:24 10/22/18 18:20 10/22/18 20:21 Intake and Output: 10/23/18 10/23/18 06:59 18:59 Intake Total 1740 Output Total 75 Balance 1665 - Medications Medications: Current Medications Calcium Acetate (Phoslo) 667 mg PO [facility] Dextrose (Dextrose 50% Inj) 0 ml IV STAT PRN; Protocol PRN Reason: Hypoglycemia Protocol Heparin Sodium (Porcine) (Heparin) 5,000 units SC Q8 BAKARI; Protocol Last Admin: 10/23/18 06:15 Dose: 5,000 units Dextrose (Dextrose 5% In Water 1000 Ml) 1,000 mls @ 0 mls/hr IV .Q0M PRN; Protocol PRN Reason: Hypoglycemia Protocol Methylprednisolone 500 mg/ (Sodium Chloride) 100 mls @ 100 mls/hr IVPB Q12H [facility] Influenza Virus Vaccine (Flucelvax Quad 2089-1670 Syr) 60 mcg IM .ONCE ONE Magnesium Hydroxide (Milk Of Magnesia) 30 ml PO DAILY PRN PRN Reason: Constipation Pantoprazole Sodium (Protonix Ec Tab) 40 mg PO 0600 [facility] Last Admin: 10/23/18 06:14 Dose: 40 mg Polyethylene Glycol (Miralax) 17 gm PO DAILY PRN PRN Reason: Constipation - Labs Labs: 10/23/18 06:50 10/23/18 14:00 PT 12.2 SECONDS (9.4-12.5) 10/23/18 06:50 INR 1.06 10/23/18 06:50 APTT 33.4 Seconds (25.1-36.5) 10/23/18 06:50 - Constitutional Appears: Non-toxic - Eye Exam Eye Exam: Normal appearance - Respiratory Exam Respiratory Exam: NORMAL BREATHING PATTERN - Cardiovascular Exam Cardiovascular Exam: +S1, +S2 - GI/Abdominal Exam GI & Abdominal Exam: Normal Bowel Sounds - Psychiatric Exam Psychiatric exam: Normal Affect, Normal Mood - Skin Skin Exam: Dry, Intact, Normal Color, Warm Additional comments: right IJ hD cath Assessment and Plan - Assessment and Plan (Free Text) Plan: Abnormal Lab Results 10/22/18 10/22/18 10/22/18 16:00 16:30 16:30 WBC RBC Hgb Hct MCV MCH MCHC RDW Plt Count MPV Gran % Lymph % (Auto) Garden % (Auto) Eos % (Auto) Baso % (Auto) Gran # Lymph # (Auto) Garden # (Auto) Eos # (Auto) Baso # (Auto) Neutrophils % (Manual) Band Neutrophils % Lymphocytes % (Manual) Monocytes % (Manual) Platelet Evaluation Hypochromasia Anisocytosis (manual) ESR 150 H PT INR APTT Sodium 136 Potassium 5.5 H Chloride 103 Carbon Dioxide 19 L Anion Gap 19 BUN 106 H Creatinine 10.5 H* Est GFR ( Amer) 4 Est GFR (Non-Af Amer) 4 Random Glucose 176 H Calcium 9.0 Phosphorus Magnesium Iron TIBC % Saturation Total Bilirubin AST ALT Alkaline Phosphatase Total Protein Albumin Globulin Albumin/Globulin Ratio Urine Color Urine Appearance Urine pH Ur Specific [place] Urine Protein Urine Glucose (UA) Urine Ketones Urine Blood Urine Nitrate Urine Bilirubin Urine Urobilinogen Ur Leukocyte Esterase Urine RBC Urine WBC Ur Epithelial Cells Urine Bacteria Complement C3 143.0 Complement C4 46.9 H Hep Bs Antigen Hep Bs Antibody Hep B Core IgM Ab 10/22/18 10/22/18 10/23/18 16:30 16:30 00:01 WBC RBC Hgb Hct MCV MCH MCHC RDW Plt Count MPV Gran % Lymph % (Auto) Garden % (Auto) Eos % (Auto) Baso % (Auto) Gran # Lymph # (Auto) Garden # (Auto) Eos # (Auto) Baso # (Auto) Neutrophils % (Manual) Band Neutrophils % Lymphocytes % (Manual) Monocytes % (Manual) Platelet Evaluation Hypochromasia Anisocytosis (manual) ESR PT INR APTT Sodium Potassium Chloride Carbon Dioxide Anion Gap BUN Creatinine Est GFR ( Amer) Est GFR (Non-Af Amer) Random Glucose Calcium Phosphorus Magnesium Iron TIBC % Saturation Total Bilirubin AST ALT Alkaline Phosphatase Total Protein Albumin Globulin Albumin/Globulin Ratio Urine Color Yellow Urine Appearance Clear Urine pH 5.5 Ur Specific [place] 1.020 Urine Protein 30 H Urine Glucose (UA) Negative Urine Ketones Negative Urine Blood Large H Urine Nitrate Negative Urine Bilirubin Negative Urine Urobilinogen 0.2 Ur Leukocyte Esterase Small H Urine RBC 20 - 25 H Urine WBC 10 - 15 H Ur Epithelial Cells 0 - 2 Urine Bacteria Trace Complement C3 Complement C4 Hep Bs Antigen Negative Hep Bs Antibody Negative Hep B Core IgM Ab Negative 10/23/18 10/23/18 10/23/18 02:35 02:35 06:50 WBC 19.7 H 21.6 H RBC 3.05 L 3.25 L Hgb 8.9 L 9.3 L Hct 27.2 L 29.3 L MCV 89.2 90.2 MCH 29.2 28.6 MCHC 32.7 31.7 RDW 13.6 13.7 Plt Count 380 416 MPV 9.9 10.0 Gran % 94.0 H 92.9 H Lymph % (Auto) 5.7 L 5.9 L Garden % (Auto) 0.3 L 1.2 Eos % (Auto) 0.0 L 0.0 L Baso % (Auto) 0.0 0.0 Gran # 18.53 H 20.08 H Lymph # (Auto) 1.1 L 1.3 Garden # (Auto) 0.1 0.3 Eos # (Auto) 0.0 0.0 Baso # (Auto) 0.00 0.01 Neutrophils % (Manual) 93 H Band Neutrophils % 1 Lymphocytes % (Manual) 4 L Monocytes % (Manual) 2 Platelet Evaluation Normal Hypochromasia Slight Anisocytosis (manual) Slight ESR PT INR APTT Sodium 135 Potassium 6.0 H* Chloride 105 Carbon Dioxide 18 L Anion Gap 18 BUN 107 H Creatinine 10.6 H* Est GFR ( Amer) 4 Est GFR (Non-Af Amer) 4 Random Glucose 124 H Calcium 8.4 Phosphorus 6.0 H Magnesium 2.5 H Iron TIBC % Saturation Total Bilirubin AST ALT Alkaline Phosphatase Total Protein Albumin Globulin Albumin/Globulin Ratio Urine Color Urine Appearance Urine pH Ur Specific [place] Urine Protein Urine Glucose (UA) Urine Ketones Urine Blood Urine Nitrate Urine Bilirubin Urine Urobilinogen Ur Leukocyte Esterase Urine RBC Urine WBC Ur Epithelial Cells Urine Bacteria Complement C3 Complement C4 Hep Bs Antigen Hep Bs Antibody Hep B Core IgM Ab 10/23/18 10/23/18 10/23/18 06:50 06:50 06:50 WBC RBC Hgb Hct MCV MCH MCHC RDW Plt Count MPV Gran % Lymph % (Auto) Garden % (Auto) Eos % (Auto) Baso % (Auto) Gran # Lymph # (Auto) Garden # (Auto) Eos # (Auto) Baso # (Auto) Neutrophils % (Manual) Band Neutrophils % Lymphocytes % (Manual) Monocytes % (Manual) Platelet Evaluation Hypochromasia Anisocytosis (manual) ESR PT 12.2 INR 1.06 APTT 33.4 Sodium 135 Potassium 5.6 H* Chloride 106 Carbon Dioxide 16 L Anion Gap 18 BUN 107 H Creatinine 10.4 H* Est GFR ( Amer) 4 Est GFR (Non-Af Amer) 4 Random Glucose 114 H Calcium 8.5 Phosphorus Magnesium Iron TIBC % Saturation Total Bilirubin 0.3 AST 18 ALT 15 Alkaline Phosphatase 91 Total Protein 7.0 Albumin 3.4 Globulin 3.6 Albumin/Globulin Ratio 0.9 L Urine Color Urine Appearance Urine pH Ur Specific [place] Urine Protein Urine Glucose (UA) Urine Ketones Urine Blood Urine Nitrate Urine Bilirubin Urine Urobilinogen Ur Leukocyte Esterase Urine RBC Urine WBC Ur Epithelial Cells Urine Bacteria Complement C3 Complement C4 Hep Bs Antigen Hep Bs Antibody Hep B Core IgM Ab 10/23/18 10/23/18 09:30 14:00 WBC RBC Hgb Hct MCV MCH MCHC RDW Plt Count MPV Gran % Lymph % (Auto) Garden % (Auto) Eos % (Auto) Baso % (Auto) Gran # Lymph # (Auto) Garden # (Auto) Eos # (Auto) Baso # (Auto) Neutrophils % (Manual) Band Neutrophils % Lymphocytes % (Manual) Monocytes % (Manual) Platelet Evaluation Hypochromasia Anisocytosis (manual) ESR PT INR APTT Sodium 135 Potassium 3.4 L Chloride 100 Carbon Dioxide 28 Anion Gap 10 BUN 40 H Creatinine 3.7 H Est GFR ( Amer) 15 Est GFR (Non-Af Amer) 12 Random Glucose 116 H Calcium 8.1 L Phosphorus Magnesium Iron 118 TIBC 155 L % Saturation 76 H Total Bilirubin AST ALT Alkaline Phosphatase Total Protein Albumin Globulin Albumin/Globulin Ratio Urine Color Urine Appearance Urine pH Ur Specific [place] Urine Protein Urine Glucose (UA) Urine Ketones Urine Blood Urine Nitrate Urine Bilirubin Urine Urobilinogen Ur Leukocyte Esterase Urine RBC Urine WBC Ur Epithelial Cells Urine Bacteria Complement C3 Complement C4 Hep Bs Antigen Hep Bs Antibody Hep B Core IgM Ab Impressions Interventional Vascular Procedure 10/22/18 15:47 IMPRESSION: 1. Ultrasound and fluoroscopically placed right IJ tunneled dialysis catheter. 68 yr old white female with pmh sig for polyangiitis granulomatosis, invasive ductal ca and htn who preented to ED with increased lethargy and was found to have a cr off 11.2 and k of 6.5,she was admitted to the ICU and had HD catheter inserted yesterday and is now undergoing acute HD with nephro consultation on board for acute renal failure will continue to follow Jessie Tong BPCI/TIC - BPCIA/TIC Educated pt/family on BPCIA/CIR/Med to Bed Programs: N/A Flyers given, including [facility] Beneficiary letter: N/A Pt/family verbalized understanding & agreed to program: N/A
[2018-10-23] MEDS: methylPREDNISolone 500 MG in Sodium Chloride 0.9% 100 ML IVPB SCH ×2 (20:04→20:32)
[2018-10-23] MEDS: POLYETHYLENE GLYCOL 3350 17 GM/Dose PACKET PO PRN (20:06)
[2018-10-23] MEDS: Magnesium Hydroxide Susp 30 ml UD PO PRN (21:24)
[2018-10-24] MEDS: Pantoprazole 40 mg EC Tab PO SCH (05:46)
[2018-10-24] MEDS: Magnesium Hydroxide Susp 30 ml UD PO PRN (05:53)
[2018-10-24 06:36] LABS: GRAN # 10.09 (1.4-6.5); GRAN % 96.3 % (50.0-68.0); HEMOGLOBIN 8.9 g/dL (12.0-16.0); LYMPH # 0.3 (1.2-3.4); LYMPH % 3.1 % (22.0-35.0); MEAN CELL VOLUME 88.7 fl (80.0-105.0); MEAN CORPUSCULAR HEMOGLOBIN 28.7 pg (25.0-35.0); MEAN CORPUSCULAR HGB CONC 32.4 g/dl (31.0-37.0); MEAN PLATELET VOLUME 9.9 fl (7.0-11.0); MONO # 0.1 (0.1-0.6); MONO % 0.6 % (1.0-6.0); RBC 3.1 10^6/uL (3.5-6.1); RED CELL DISTRIBUTION WIDTH 13.4 % (11.5-14.5); WHITE BLOOD COUNT 10.5 10^3/uL (4.5-11.0)
[2018-10-24 07:17] LABS: ALB/GLOB RATIO 0.9 (1.1-1.8); ALBUMIN 3.1 g/dL (3.0-4.8); CALCIUM 7.8 mg/dL (8.4-10.5)
--- NOTE | 2018-10-24 09:21 | PN ---
DATE: 10/23/2018 SUBJECTIVE: The patient was seen and admitted yesterday by Dr. Mars Webb with an acute flare up of renal disease as well as two weeks ago her creatinine was 1.7. When seen in the office, there was also a rise in her sed rate to 78. 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 Now admitted yesterday by Dr. Mars Webb with a creatinine of 8. She had a dialysis catheter placed in preparation for her first round of dialysis at the moment. The patient is awake, alert, clear in rather good spirits, all considered. Exam is otherwise as listed above. IMPRESSION: 1. 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 Case was discussed at length with Dr. Randall. Renal biopsy is scheduled with Dr. Reyes Cross. Renal ultrasound was unrevealing. We will continue to follow. Simon Webb MD
[2018-10-24] MEDS: methylPREDNISolone 500 MG in Sodium Chloride 0.9% 100 ML IVPB SCH ×2 (09:28→21:45)
--- NOTE | 2018-10-24 14:09 | CP.PCM.PCO ---
Physician Communication Note - Physician Communication Note Physician Communication Note: ANA,HD per ,for transfer out of unit,monitor IsOs, Bun/creat
[2018-10-24] MEDS ORDERED: Midazolam 2 MG/2 ML VIAL ONE (18:29)
[2018-10-24] MEDS ORDERED: Midazolam 2 MG/2 ML VIAL IVP ONE (19:05)
[2018-10-24] MEDS ORDERED: Sodium Chloride 0.45% 1,000 ML IV SCH (19:15)
--- NOTE | 2018-10-24 19:19 | PN ---
DATE: 10/24/2018 SUBJECTIVE: The patient is currently seen in ICU bed 3, but she has been downgraded to telemetry. She had an uneventful dialysis yesterday with lowering of her potassium and BUN and creatinine. She remains on IV Solu-Medrol for the possibility of reactivation of her acute pauci-immune glomerulonephritis. The tentative plan was to try to have a renal biopsy done today. It is not taken place as of yet. I will discuss this with the interventional radiologist. The patient is entirely comfortable. Her potassium level is in the normal range. We are tentatively planning perhaps one more dialysis treatment for tomorrow. MEDICATIONS: Medication list reviewed. The patient is on Benadryl, subcutaneous heparin, Solu-Medrol 500 mg IV every 12 hours for a total of six doses, milk of magnesia, MiraLax, PhosLo, and Protonix. OBJECTIVE: INTAKE/OUTPUT: Intake is 1180, output is 950 plus 200 mL removed with dialysis. VITAL SIGNS: Blood pressure is 150/71, temperature is 97.5, pulse of 61, respiratory rate is 19. Oxygen saturation is 97%. HEENT: Shows her be normocephalic, atraumatic. Conjunctivae are pale. Sclerae are nonicteric. NECK: Supple. No neck vein distention. CHEST: Clear to auscultation and percussion. No rales, rhonchi or wheezing. CARDIOVASCULAR: Shows a regular rate and rhythm with a soft systolic murmur left lower sternal border. No S3 no S4, no rub. Positive PermCath, right chest wall. ABDOMEN: Soft. Bowel sounds normal, no rebound, guarding or masses. EXTREMITIES: Show no lower extremity cyanosis, clubbing or edema. LABORATORY DATA AND IMAGING: CBC, white blood cell count today 10.5 with a hemoglobin of 8.9, stable. Platelet count is 324,000. Chemistry showed normal electrolytes. Potassium is 4.9 today. BUN 66 with a creatinine of 6.2. Glucose is 134 with a calcium of 7.8. Iron saturations of 76%. Albumin level was 3.1. Urine analysis showed white blood cells and red blood cells and trace to 2+ protein. MILEY profile was negative. ANCA profile is pending. C3 is normal. C4 is mildly elevated. Microbiology, urine cultures were negative. ASSESSMENT: 1. 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 The hope was to have a renal biopsy done today on the non dialysis day. I did discuss with the patient that we will continue IV steroids through the weekend. ANCA titers are pending. Hope was to do a renal biopsy today to have some results on 10/27/2018 to make further decisions regarding her therapy. Previously, the patient did receive steroids, Cytoxan and rituximab for her for pauci-immune crescentic glomerulonephritis. 2. History of hypertension. Slight elevation of systolic blood pressure. Losartan had been discontinued. The patient currently is receiving no medicine for hypertension. 3. History of anemia. Likely secondary to acute renal failure. Iron saturations are normal.. Aranesp to be given with dialysis. The patient received her first dose on 10/23/2018. 4. Past history of breast cancer, status post lumpectomy, currently stable. 5. Secondary hyperparathyroidism with elevated phosphorus levels. The patient will continue binder therapy and a renal diet. 6. No evidence for urinary tract infection. 7. Still awaiting her urine electrolytes and urine eosinophils. PLAN: 1. In all likelihood the patient will have dialysis again tomorrow. 2. We will discuss with Dr. Reyes Cross the possibility of still trying to do a renal biopsy as soon as possible, perhaps even later today. 3. Continue IV steroids for a total of six doses. 4. Continue binder therapy and a renal diet. 5. Await the remaining labs that are pending. Ovidio Randall MD
--- NOTE | 2018-10-24 19:50 | CT ---
PROCEDURE: CT guided left renal cortex biopsy. HISTORY: History Daphnie's. Previous renal biopsy. Acute renal failure. Reassess PHYSICIAN(S): Reyes Cross MD. TECHNIQUE: The relative risks and indications of the procedure were explained to the patient and consent obtained. The patient was placed prone on the CT scanner and preliminary images through the kidneys obtained. Conscious sedation and monitoring were provided throughout the procedure by a nurse. The visualized renal parenchyma on these limited non-contrast images are unremarkable.. A left posterior approach was selected and the area prepped and draped in the usual sterile fashion. 1% Xylocaine was used to anesthetize the skin and soft tissues. A 17-gauge guiding needle was advanced into the left renal cortex posteriorly and inferiorly. Its position was confirmed with CT. Using coaxial technique, multiple core biopsies were obtained. The postprocedure images demonstrate a small left retroperitoneal hematoma IMPRESSION: 1. CT-guided left renal cortex biopsy as described above.
[2018-10-25] MEDS: Pantoprazole 40 mg EC Tab PO SCH (05:17)
[2018-10-25] MEDS: Oxycodone/Acetaminophen 5/325 mg Tab PO PRN (05:22)
[2018-10-25 07:13] LABS: BASO % 0.1 % (0.0-3.0); GRAN # 14.63 (1.4-6.5); GRAN % 94.2 % (50.0-68.0); HEMOGLOBIN 8.4 g/dL (12.0-16.0); LYMPH # 0.8 (1.2-3.4); LYMPH % 4.8 % (22.0-35.0); MEAN CELL VOLUME 87.8 fl (80.0-105.0); MEAN CORPUSCULAR HEMOGLOBIN 28.4 pg (25.0-35.0); MEAN CORPUSCULAR HGB CONC 32.3 g/dl (31.0-37.0); MONO % 0.9 % (1.0-6.0); RBC 2.96 10^6/uL (3.5-6.1); RED CELL DISTRIBUTION WIDTH 13.5 % (11.5-14.5); WHITE BLOOD COUNT 15.5 10^3/uL (4.5-11.0)
[2018-10-25 07:14] LABS: BASO # 0.01 K/mm3 (0.0-2.0); MONO # 0.1 (0.1-0.6)
[2018-10-25 07:25] LABS: CALCIUM 7.7 mg/dL (8.4-10.5)
--- NOTE | 2018-10-25 09:26 | PN ---
DATE: 10/25/2018 SUBJECTIVE The patient is currently seen on 3R. She was transferred out of the unit. She did have her percutaneous renal biopsy CT-guided last night. No results will likely be ready until early next week. The patient has completed 50% of her course of Solu-Medrol. She is due for 2 more doses today and 1 dose on 10/26/2018. The patient is making urine but perhaps less urine down to 360 mL last 24 hours. The patient's BUN and creatinine are trending up, her potassium is 5.4 with a sodium of 130 this morning. The patient is scheduled for dialysis today. This will be her second treatment. MEDICATIONS: Medication list reviewed. The patient is currently on Benadryl, half-normal saline 45, 80 mL an hour which will be discontinued, subcu heparin, methylprednisolone, milk of magnesia, MiraLax, Percocet, PhosLo, Protonix, Tylenol and Zofran. OBJECTIVE: INTAKE/OUTPUT: Intake 1505, output 362. VITAL SIGNS: Blood pressure 156/83, temperature 97.4, pulse of 66 with respiratory rate of 20. HEENT: Shows her to be normocephalic, atraumatic. Conjunctivae are pale. Sclerae nonicteric. NECK: Supple. No neck vein distention. CHEST: Clear to auscultation and percussion. No rales, rhonchi or wheezing. CARDIOVASCULAR: Shows a regular rate and rhythm with a soft murmur left lower sternal border. No S3. No S4, no rub. Positive PermCath, right chest wall. ABDOMEN: Soft. Bowel sounds normal. No rebound, guarding or masses. EXTREMITIES: Show no lower extremity cyanosis, clubbing or edema. LABORATORY DATA AND IMAGING STUDIES: CBC, white blood cell count 15.5, slightly high likely a steroid effect. Hemoglobin trending down with it 8.4. Platelet count is 318,000. Chemistries; sodium down to 130, potassium up to 5.4. CO2 level is 21, BUN 87, creatinine 7.3. Glucose 140. Calcium 7.7, phosphorus 4 with a magnesium of 2.1. Liver enzymes are normal. Albumin 3.0. Urine studies still waiting for remainder of her urine electrolytes and her urine eosinophil stain. ANCA titers are pending. MILEY is negative. PR3 is positive at 70.4. Myeloperoxidase antibody is negative. C3 is 143. C4 is 40.9. Microbiology, all cultures are negative. Iron saturations were 76%. ASSESSMENT: 1. Acute renal failure in a patient with a history of pauci-immune crescentic glomerulonephritis/Daphnie's. It appears that this might be reactivation of the disease. The patient has gone from a creatinine of 1.2 back in August to creatinine of 11.2 on admission. The patient is 50% through her course of IV steroid. She will receive a total of 3 g of Solu-Medrol over 72 hours. Renal biopsy was done. It appears though not complete, her PR3 is positive. C-ANCA titer is pending. P-ANCA titer is pending. The patient might be a candidate for Cytoxan and perhaps rituximab. This apparently worked for her last time. 2. History of hypertension. Slight elevation of blood pressure. Angiotensin receptor yuki therapy was discontinued. The patient may receive calcium channel yuki therapy for blood pressure control on the day she does not go for dialysis. 3. History of anemia. The patient is receiving Aranesp. The patient's iron saturations are excellent. Her first dose of Aranesp was given on 10/23/2018. 4. Past history of breast cancer, status post lumpectomy, currently stable. 5. History of secondary hyperparathyroidism with elevated phosphorus levels. Last phosphorus level was down to 4.0 with binder therapy and a renal diet. 6. No evidence for urinary tract infection despite pyuria. 7. Still awaiting urine electrolytes and urine eosinophils. PLAN: 1. Explained to the patient that she will go for a second dialysis treatment today. 2. Appreciate the ability for Dr. Reyes Cross to do a biopsy late last night. No results likely to be ready until early next week. Perhaps Saturday. 3. Continue IV steroids for total of 6 doses a total of 3 g. 4. Continue binder therapy and a renal diet. 5. Await the pending lab results for workup for her suspected vasculitis. Ovidio Randall MD [facility]
[2018-10-25] MEDS: methylPREDNISolone 500 MG in Sodium Chloride 0.9% 100 ML IVPB SCH ×2 (14:16→21:20)
[2018-10-26] MEDS: Oxycodone/Acetaminophen 5/325 mg Tab PO PRN ×2 (00:27→19:58)
[2018-10-26] MEDS: Pantoprazole 40 mg EC Tab PO SCH (05:53)
[2018-10-26 07:03] LABS: GRAN # 18.56 (1.4-6.5); GRAN % 94.1 % (50.0-68.0); HEMOGLOBIN 8.7 g/dL (12.0-16.0); LYMPH % 4.9 % (22.0-35.0); MEAN CELL VOLUME 88.3 fl (80.0-105.0); MEAN CORPUSCULAR HEMOGLOBIN 29.1 pg (25.0-35.0); MONO # 0.2 (0.1-0.6); PLATELET COUNT 300 10^3/uL (120.0-450.0); RBC 2.99 10^6/uL (3.5-6.1); RED CELL DISTRIBUTION WIDTH 13.5 % (11.5-14.5); WHITE BLOOD COUNT 19.7 10^3/uL (4.5-11.0)
[2018-10-26 07:40] LABS: CALCIUM 8.2 mg/dL (8.4-10.5)
[2018-10-26 08:34] LABS: LYMPHOCYTE 4 % (22.0-35.0); MONOCYTE 1 % (1.0-6.0); NEUTROPHIL 95 % (50.0-70.0)
[2018-10-26 08:35] LABS: ANISOCYTOSIS 1+; HYPOCHROMIA 1+; PLATELET ESTIMATE NORMAL (NORMAL)
--- NOTE | 2018-10-26 14:53 | PN ---
DATE: 10/26/2018 SUBJECTIVE: The patient is currently seen sitting up comfortably in bed. She did have some mild back pain in the area of the kidney biopsy, this has resolved. She is eating breakfast. She has completed 3 g of Solu-Medrol, 500 mg IV piggyback every 12 over the last 72 hours. She will be started on p.o. prednisone today. Still no results back from the kidney biopsy that was done Saturday night 10/24/2018. Hoping to have some results back tomorrow. The patient had an uneventful dialysis yesterday. The patient states that her urine output has not been significant, but she is making urine. MEDICATIONS: Medication list reviewed. The patient is currently on Benadryl, subcutaneous heparin, MiraLax, Percocet, PhosLo, Protonix, Tylenol and Zofran p.r.n. OBJECTIVE: INTAKE AND OUTPUT: Intake is 440+ and output is not charted. VITAL SIGNS: Blood pressure 147/77, temperature is 97.4, respiratory rate is 18 with a pulse of 72. HEENT: Shows her to be normocephalic and atraumatic. Conjunctivae are pale. Sclerae nonicteric. NECK: Supple. No neck vein distention. CHEST: Clear to auscultation and percussion. No rales, rhonchi or wheezing. CARDIOVASCULAR: Shows a regular rate and rhythm without murmurs, rubs or gallops. ABDOMEN: Soft. Bowel sounds normal. No rebound, guarding or masses. EXTREMITIES: Show no lower extremity cyanosis, clubbing or edema. The patient does have a PermCath in her right chest wall. LABORATORY DATA AND IMAGING STUDIES: CBC, white blood cell count today 19.7, likely elevated from steroids. Hemoglobin 8.7, stable. Platelet count is 300,000. Chemistries; sodium 131, potassium 5.0 today. Chloride 97. BUN 64 with a creatinine of 5.5. Glucose 122 with calcium of 8.2. Phosphorus was 4.0. Magnesium was 2.1. Iron saturations are 76%. Liver enzymes are normal. Albumin is 3.0. Urine showed trace to 2+ protein in her urine. Positive red blood cells, positive white blood cells. Urine Valentin stain is negative. Fractional excretion of sodium is greater than 1% with a urine sodium of 20. MILEY is negative. LA III antibody is positive. The remainder of the ANCA titers are pending. Myeloperoxidase is negative. C3 is normal at 143 and C4 is high at 46.9. Hepatitis serologies are negative. Microbiology, all cultures are negative. ASSESSMENT: 1. 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 It appears that the patient might have reactivation of her disease. She has gone from a creatinine of 1.2 - 1.7 in the late fall of this year to a creatinine of 11.21 on admission. The patient has received a total of 3 g of Solu-Medrol. She will be started on p.o. prednisone. I did discuss with her the possibility of starting Cytoxan, the patient in 2016 received rituximab and she required plasmapheresis. I have explained to her that I will hold these more aggressive therapies pending the review of the biopsy. For right now, the patient will be maintained on hemodialysis. 2. History of hypertension. The patient is off angiotensin receptor yuki therapy. I will start her on calcium channel yuki therapy for blood pressure control. 3. History of anemia. The patient is receiving Aranesp. Iron saturations were normal. First dose of Aranesp was given on 10/23/2018. 4. History of breast cancer, status post lumpectomy, currently stable. 5. History of secondary hyperparathyroidism. The patient's phosphorus level on admission was 6.0, with binder therapy it is down to 4.0. The patient remains on a renal diet, low potassium diet. 6. No evidence for urinary tract infection. 7. No evidence for acute interstitial nephritis. PLAN: 1. Discussed with the patient. She is very apprehensive, and very nervous about the possibility of needing to be on dialysis for the rest of her life. I did discuss with her that if there is anything inflammatory and reversible we will treat her with a similar regimen to what she had received in 2016. I think it is prudent to wait to see what the biopsy shows before we initiate more aggressive therapy than that of steroids. 2. Continue binder therapy and a renal diet. 3. Continue low potassium diet. 4. Discussed with Dr. Mars Webb, in detail. Ovidio Randall MD [facility] # [id number] [facility]EL[facility]
[2018-10-26] MEDS: POLYETHYLENE GLYCOL 3350 17 GM/Dose PACKET PO PRN (18:42)
[2018-10-27] MEDS: Oxycodone/Acetaminophen 5/325 mg Tab PO PRN ×2 (00:41→08:17)
[2018-10-27 02:03] LABS: ANCA SCREEN POSITIVE (NEGATIVE)
[2018-10-27] MEDS: Pantoprazole 40 mg EC Tab PO SCH (05:35)
[2018-10-27 07:11] LABS: BASO # 0.02 K/mm3 (0.0-2.0); BASO % 0.1 % (0.0-3.0); GRAN # 19.72 (1.4-6.5); GRAN % 88.7 % (50.0-68.0); HEMOGLOBIN 8.9 g/dL (12.0-16.0); LYMPH # 1.8 (1.2-3.4); MEAN CELL VOLUME 88.7 fl (80.0-105.0); MEAN CORPUSCULAR HEMOGLOBIN 29.6 pg (25.0-35.0); MEAN CORPUSCULAR HGB CONC 33.3 g/dl (31.0-37.0); MEAN PLATELET VOLUME 10.4 fl (7.0-11.0); MONO # 0.7 (0.1-0.6); MONO % 3.2 % (1.0-6.0); RBC 3.01 10^6/uL (3.5-6.1); RED CELL DISTRIBUTION WIDTH 13.7 % (11.5-14.5); WHITE BLOOD COUNT 22.2 10^3/uL (4.5-11.0)
[2018-10-27 07:20] LABS: ALBUMIN 3.1 g/dL (3.0-4.8); CALCIUM 8.1 mg/dL (8.4-10.5)
[2018-10-27] MEDS: POLYETHYLENE GLYCOL 3350 17 GM/Dose PACKET PO PRN (08:18)
[2018-10-27] MEDS: Psyllium Packet PO SCH (09:11)
[2018-10-27 11:13] LABS: IRON 136 ug/dL (45-180)
[2018-10-27 11:21] LABS: % IRON SATURATION 72 % (20-55); TOTAL IRON BINDING CAPACITY 188 ug/dL (265-497)
--- NOTE | 2018-10-27 11:28 | PN ---
DATE: 10/25/2018 SUBJECTIVE: The patient is a 68-year-old female with a history of Daphnie's granulomatosis who was feeling very weak, tired, exhausted presented to the emergency room, was found to be in acute renal failure. It is felt that this is secondary to her Daphnie's. OBJECTIVE: GENERAL: When seen today, the patient is awake, alert and oriented. LUNGS: Her lungs are clear to auscultation and percussion. HEART: Regular. ABDOMEN: Soft and nontender. VITAL SIGNS: Her blood pressure is 156/83. LABORATORY DATA: White blood cell count is 15.5, hemoglobin and hematocrit are 8.4 and 26.0 respectively, platelet count is 318. Sodium is 130, potassium 5.4, blood urea nitrogen is 87, creatinine is 7.3, glucose is 140. The patient underwent biopsy of the kidney. We are expecting the left kidney with results in a few days. In the meantime, she underwent her first dose of hemodialysis. When seen, she is awake, alert and oriented, and voices no complaints. She understands her condition and our treatment plan and we will continue to follow the patient closely. Mars Webb MD
--- NOTE | 2018-10-27 12:28 | PN ---
DATE: 10/26/2018 DAILY PROGRESS NOTE SUBJECTIVE: The patient is a 68-year-old female with a history of Daphnie's granulomatosis who was admitted to the hospital on October 22 with acute renal failure. It is felt that this is secondary to her Daphnie's. Through the hospital stay she is followed by Dr. Randall. She has received two doses of hemodialysis. She underwent biopsy of the left kidney by Dr. Reyes Cross, pathology report is pending on that. When seen today, the patient is awake, alert and oriented. She voices no complaints. Physical exam is unremarkable. However, she does feel some discomfort from the biopsy site. White blood cell count is 19.7, hemoglobin and hematocrit are 8.7 and 26.4. BUN and creatinine is 64 and 5.5. The creatinine is slightly down from the 7.3 that it was yesterday. Her blood pressure is 147/77. The case was discussed with Dr. Randall, her Grip Wrapper. She is receiving intravenous steroids for now. Pending on the results of the biopsy, we may plan for treatment with Cytoxan and plasmapheresis once the biopsy shows that this is an active Daphnie's granulomatosis. Mars Webb MD
--- NOTE | 2018-10-27 15:32 | PN ---
DATE: 10/27/2018 SUBJECTIVE: The patient is seen lying in bed. She is very anxious. She complains of left-sided abdominal pain. She also complains of left back pain. She denies any chest tightness. She denies any palpitations. PHYSICAL EXAMINATION: GENERAL: Elderly lady lying in bed. VITAL SIGNS: Blood pressure 156/82, heart rate 61, respiratory rate 20, temperature 97.5. HEENT: Normocephalic, atraumatic, positive pallor. NECK: Supple, no JVD. LUNGS: Bilateral equal entry, bilateral equal expansion. CARDIAC: S1, S2. Regular, rate, and rhythm. No murmur, no rub. ABDOMEN: Obese, distended, soft, tympanic. Bowel sounds present. EXTREMITIES: Trace lower extremity edema. INTAKE AND OUTPUT: Not accurately charted, 150/400. LABORATORY DATA: WBC 22, hemoglobin 8.9, hematocrit 27, platelets 321. Sodium 129, potassium 4.9, chloride 95, CO2 of 23, BUN 90, creatinine 6.4, glucose 109, calcium 8.1, phosphorus 5.8, magnesium 2.0. Urine culture no growth. ANCA screen positive, C-ANCA titer 1:160, PR3 70.4. Hepatitis profile negative. CURRENT MEDICATIONS: Benadryl 12.5 at bedtime p.r.n., heparin 5000 subcu every 8 hours, MiraLax 17 g daily, amlodipine 5 daily, Percocet 5/325 every 4 hours p.r.n. PhosLo 667 p.o. three times a day with meals, prednisone 30 twice a day, Protonix 40, Tylenol, Zofran. ASSESSMENT: 1. Relapse of Daphnie's granulomatosis, acute kidney injury, hyperkalemia. The patient had dialysis on Saturday. The patient has received 3 g of Solu-Medrol IV so far. Currently on 30 g of prednisone twice a day. 2. Hyperkalemia, resolved with dialysis. 3. Hypertension. 4. Severe anemia. 5. Hyperphosphatemia. 6. Secondary hyperparathyroidism. 7. Anxiety. 8. Constipation. PLAN: 1. We will arrange for dialysis today. 2. We will request hematology evaluation for plasmapheresis. 3. We will likely rituximab. 4. Continue amlodipine for hypertension. 5. Continue PhosLo. 6. Check intact PTH levels. 7. Check iron, TIBC, ferritin. 8. . Monserrat French MD
[2018-10-27] MEDS: Darbepoetin Alfa 60 mcg/ml Inj IVP ONE ×2 (16:23→16:26)
[2018-10-28] MEDS: Pantoprazole 40 mg EC Tab PO SCH (05:42)
[2018-10-28 07:03] LABS: BASO # 0.04 K/mm3 (0.0-2.0); BASO % 0.2 % (0.0-3.0); GRAN # 19.66 (1.4-6.5); GRAN % 87.8 % (50.0-68.0); HEMOGLOBIN 10.9 g/dL (12.0-16.0); LYMPH # 2.2 (1.2-3.4); LYMPH % 9.7 % (22.0-35.0); MEAN CELL VOLUME 87.7 fl (80.0-105.0); MEAN CORPUSCULAR HEMOGLOBIN 29.1 pg (25.0-35.0); MEAN CORPUSCULAR HGB CONC 33.2 g/dl (31.0-37.0); MEAN PLATELET VOLUME 10.5 fl (7.0-11.0); MONO # 0.5 (0.1-0.6); MONO % 2.3 % (1.0-6.0); RBC 3.74 10^6/uL (3.5-6.1); RED CELL DISTRIBUTION WIDTH 14.5 % (11.5-14.5); WHITE BLOOD COUNT 22.4 10^3/uL (4.5-11.0)
[2018-10-28] MEDS ORDERED: Magnesium Citrate Oral SOL (300 ml) PO ONE (08:12)
[2018-10-28] MEDS ORDERED: DiphenhydrAMINE 50 mg/ml Inj IVP STA (08:51)
[2018-10-28] MEDS: Psyllium Packet PO SCH (12:16)
[2018-10-28] MEDS ORDERED: Magnesium Hydroxide Susp 30 ml UD PO ONE (15:31)
--- NOTE | 2018-10-28 16:18 | CP.PCM.PCO ---
Physician Communication Note - Physician Communication Note Physician Communication Note: pt receiving plasmapheresis at bedside starting today x4 days.last 10/31
--- NOTE | 2018-10-28 17:10 | PN ---
DATE: 10/28/2018 SUBJECTIVE: The patient had an uneventful dialysis yesterday with removal of 2300 mL of fluid. The patient had her 1st plasmapheresis treatment today. We should be receiving results of her kidney biopsy later today. The patient is status post 3 g of Solu-Medrol and is currently on oral prednisone therapy. We will more than likely use rituximab rather than Cytoxan as that is the regimen she responded to several years ago when she had a similar presentation. The patient, unfortunately, is making only small amounts of urine, 300 mL. MEDICATIONS: Medication list reviewed. The patient is currently on Ambien, Bactrim, Benadryl, subcu heparin, MiraLax, Norvasc, PhosLo, prednisone, Protonix, Tylenol, and Zofran p.r.n. OBJECTIVE: INTAKE/OUTPUT: Intake is not charted. Output is 300 mL. VITAL SIGNS: Blood pressure 143/83, temperature 97.6, respiratory rate 20 with a pulse of 74. HEENT: Exam shows her be normocephalic, atraumatic. Conjunctivae are pale. Sclerae nonicteric. NECK: Supple. No neck vein distention. CHEST: Clear to auscultation and percussion. No rales, rhonchi or wheezing. CARDIOVASCULAR: Shows a regular rate and rhythm without murmurs, rubs or gallops. ABDOMEN: Soft. Bowel sounds normal. No rebound, guarding or masses. EXTREMITIES: Show no lower extremity cyanosis, clubbing or edema. She has a PermCath in her right chest wall. LABORATORY DATA AND IMAGING: CBC, white blood cell count today 22.4, hemoglobin 10.9 with a platelet count of 292,000. Chemistries, sodium 129 today. Potassium 4.9. Chloride 95 with a CO2 of 23, BUN 90 with a creatinine of 6.4. Glucose is 109. Calcium is 8.1, phosphorus 5.8, magnesium 2. Iron saturations remain normal. Ferritin is 123. Albumin level was 3.1. Immunology ANCA positive. C ANCA 1:160 with a CA 3 positive at 70.4. Myeloperoxidase was negative. MILEY was negative. C3 143, normal C4 elevated at 46.9. Microbiology, all cultures negative. Blood bank, the patient received 1 unit of packed red blood cells. ASSESSMENT: 1. 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 In all likelihood, the patient has reactivation of the disease. We are awaiting the formal results of her renal biopsy which should be available later today. The patient will continue plasmapheresis for total of four treatments as per Dr. Trinh. She is status post Solu-Medrol. She is on oral prednisone. The patient will likely be a candidate for outpatient rituximab therapy or oral Cytoxan therapy. 2. History of hypertension. The patient will be maintained on a calcium channel yuki. She is off angiotensin receptor yuki therapy. 3. History of anemia. The patient is receiving Aranesp, first dose was given on 10/23/2018. Iron saturations were normal. The patient did receive 1 unit of packed red blood cells yesterday. 4. History of breast cancer, status post lumpectomy, stable. 5. History of secondary hyperparathyroidism. Phosphorus level is 5.8. The patient remains on binder therapy and a renal diet. No evidence for urinary tract infection. No evidence for acute interstitial nephritis. PLAN: 1.. Discussed with the patient. Will likely need to coordinate plasmapheresis with dialysis. It is quite possible that she could have a plasmapheresis and dialysis on the same day. 2. Hoping to see improvement in her urine output and a fall in BUN and creatinine with present therapy. 3. Continue PPI and Bactrim three times a week for prophylaxis given the fact she is taking steroids and she will likely receive more immunosuppression. 4. Continue renal diet, low potassium diet. 5. Medications for constipation given by Dr. Webb. Ovidio Randall MD
--- NOTE | 2018-10-28 17:16 | CON ---
DATE: 10/28/2018 LOCATION: The patient is in room 366, bed 1. REASON FOR CONSULTATION: Short run of 5 PVCs in a row, nonsustained ventricular tachycardia, hypertension, and renal failure. HISTORY OF PRESENT ILLNESS: The patient is a 68-year-old female, who has known case of pauci-immune crescentic glomerulonephritis, ANCA positive. The patient is getting treatment for that. The patient recently found to develop renal failure with uremic symptoms. The patient was admitted for renal failure. Denies any chest pain, short of breath, or palpitation. The patient was on monitor today and 5 PVC in a row. The patient is totally asymptomatic. Denies any history of syncope, dizziness, or previous cardiac problems. The patient has mentioned before as no known hypertension, esophageal reflux disease. There is no history of residual chest pain or PND or shortness of breath. The patient states that she feels tired. PAST MEDICAL HISTORY: Positive for pauci-immune crescentic glomerulonephritis, ANCA positive; hypertension; history of breast cancer on the right side with lumpectomy and radiation therapy; and esophageal reflux disease. PERSONAL HISTORY: The patient used to smoke half pack till five years ago. Drinks only socially. ALLERGIES: THE PATIENT IS ALLERGIC TO PENICILLIN. FAMILY HISTORY: The patient's father had coronary artery disease. HOME MEDICATIONS: Included prednisone 30 mg p.o. twice a day, Cytoxan 100 mg p.o. daily, and Os-Jd 500 mg p.o. three times a day. REVIEW OF SYSTEMS: All the systems reviewed, positive as mentioned in the history, otherwise negative. PHYSICAL EXAMINATION: VITAL SIGNS: Blood pressure 143/83, respirations 20, pulse 67, and temperature 97.6. HEENT: Head is normocephalic. Eyes; pupils normal. Conjunctivae are slightly pale. NECK: JVP low. Carotids equal. THORAX: AP diameter normal. LUNGS: Clear. CARDIOVASCULAR: S1 and S2. ABDOMEN: Soft. No tenderness. No organomegaly. Bowel sounds normal. EXTREMITIES: No clubbing. No cyanosis. LABORATORY DATA: WBC 22.4, hemoglobin 10.9, hematocrit 32.8, and platelets 292. Sodium 129, potassium 4.9, BUN 90, creatinine 6.4, AST/ALT normal, protein/albumin normal, calcium 8.1, phosphorus 5.8, and magnesium 2.0. Chest x-ray done on 10/22/2018; no abnormality seen. EKG showed regular sinus rhythm. Monitor 5 PVCs in a row. The patient is totally asymptomatic. DIAGNOSES: Five premature ventricular contractions in a row, nonsustained ventricular tachycardia, asymptomatic; renal failure; hypertension; esophageal reflux disease; and pauci-immune crescentic glomerulonephritis, antineutrophil cytoplasmic antibodies positive. PLAN: From cardiac point of view, the patient is asymptomatic and we are going to do echocardiogram, and the patient will have stress test later on. The patient wants to wait for the stress test and since the patient asymptomatic, so I told as we can do till later on. definitely do it later on, not that admission. The patient will continue the medication as ordered. Clinically, cardiac status seemed to be stable at this moment and we will follow that per report, and as I said before stress test will be done later on. The patient is on amlodipine 5 mg daily. She is also getting prednisone 30 mg b.i.d. and Protonix 40 mg daily. We will continue to follow with you. Mohini Sprague MD
--- NOTE | 2018-10-28 17:44 | CON ---
DATE: 10/28/2018 REASON FOR CONSULTATION: ANCA positive pauci-immune crescentic glomerulonephritis. HISTORY OF PRESENT ILLNESS: The patient is a 68-year-old female well known to me from prior admissions as well as the office with known history of ANCA positive biopsy-proven pauci-immune crescentic glomerulonephritis diagnosed initially about 3 years ago at which point, the patient was treated with steroids, Cytoxan and rituximab. She had an excellent remission at that point with creatinine normalizing to less than 2 baseline and all other parameters returning to normal. She recently started having uremic symptoms at home including nausea, vomiting and fatigue that was intractable over the last 1 to 2 weeks. She denies any fevers, any night sweats, any pain, any recent infection. She was also diagnosed with right breast cancer earlier this year for which she underwent a lumpectomy and radiation and did not require any chemotherapy as her ANCA was low. She has been on AI therapy without any side effects. She has now been admitted since 10/22/2018. Initially, her creatinine was noted to be at 11.2 and a potassium of 6.5. She subsequently been dialyzed at least 3 times and her creatinine has somewhat improved, potassium is also normalized now. Consult is now called for plasmapheresis. She states she feels much better as far as her fatigue goes, but she has not had a bowel movement in over 5 days. Denies any fevers, night sweats, or weight loss. PAST MEDICAL HISTORY: Significant for pauci-immune crescentic glomerulonephritis ANCA-positive, history of hypertension, recent right breast cancer status post lumpectomy. FAMILY HISTORY: Noncontributory. SOCIAL HISTORY: Negative for smoking or alcohol abuse. Lives with her . She is nulliparous. MEDICATIONS AT HOME: Include losartan and omeprazole. ALLERGIES: SHE NOTES ALLERGIES TO PENICILLIN. REVIEW OF SYSTEMS: As per the HPI. PHYSICAL EXAMINATION: GENERAL: The patient is an elderly pleasant female, sitting up in chair, in no acute distress. VITAL SIGNS: Reveal a temperature of 97.6 orally, pulse of 74, respiratory rate of 20 and a blood pressure of 143/83. She is sating 97% on room air. HEENT: Head and Neck: Normocephalic, atraumatic. Eyes: Pupils are equal, round and reactive to light and accommodation. Extraocular muscles are intact. There is pallor is noted. NECK: Supple with no adenopathy. No JVD. No thyromegaly. LUNGS: Decreased breath sounds bilaterally secondary to poor effort. CARDIOVASCULAR: S1 and S2 heard. ABDOMEN: Positive bowel sounds, soft, nontender, nondistended. No organomegaly is palpated. EXTREMITIES: There is no edema, clubbing or cyanosis. LABORATORY DATA: Labs reveal a white count of 22.4, hemoglobin 10.9 post-PRBC transfusion, hematocrit of 32.8, MCV of 87.8 and a platelet count of 292. Coag studies are within normal limits. Chemistries today reveal a BUN and creatinine of 90 and 6.4. Her sodium is 129, her electrolytes are within normal limits except for a phosphorus which is still elevated at 5.8. Iron studies are consistent with anemia of chronic renal disease. LFTs are within normal limits. Her immunology studies once again revealed positive ANCA screen with c-ANCA positive and proteinase 3 positive. Complement 4 is also positive at 46.9%. Her hepatitis serology is negative. She had a CT-guided kidney biopsy, results for which are still pending. ASSESSMENT AND PLAN: Elderly female with past medical history of positive paucicellular crescentic pyelonephritis, once again admitted with acute renal failure while her renal function has been stable for almost 2 years now. She has undergone at least 3 sessions of hemodialysis, start plasmapheresis today times at least 4 sessions. She will continue steroids as per Renal, will also benefit from Rituxan which will be started as an outpatient once the patient is discharged. She is also being considered for further hemodialysis at this point as her renal function has not improved considerably yet. We will discuss with Dr. French further once biopsy results are available. Thank you for the consult. We will follow. Jerica Trinh MD
[2018-10-29] MEDS: Pantoprazole 40 mg EC Tab PO SCH (06:03)
[2018-10-29 06:29] LABS: MEAN CELL VOLUME 89.7 fl (80.0-105.0); MEAN CORPUSCULAR HEMOGLOBIN 29.3 pg (25.0-35.0); MEAN CORPUSCULAR HGB CONC 32.7 g/dl (31.0-37.0); MEAN PLATELET VOLUME 10.3 fl (7.0-11.0); RBC 3.41 10^6/uL (3.5-6.1); RED CELL DISTRIBUTION WIDTH 14.6 % (11.5-14.5); WHITE BLOOD COUNT 22.3 10^3/uL (4.5-11.0)
[2018-10-29 07:20] LABS: ALB/GLOB RATIO 1.3 (1.1-1.8); ALBUMIN 3.2 g/dL (3.0-4.8); CALCIUM 8.1 mg/dL (8.4-10.5)
[2018-10-29] MEDS ORDERED: DiphenhydrAMINE 50 mg/ml Inj IM ONE (08:00)
--- NOTE | 2018-10-29 08:04 | CP.PCM.PN ---
Subjective - Date & Time of Evaluation Date of Evaluation: 10/29/18 Time of Evaluation: 06:35 - Subjective Subjective: Awake, alert, no distress Reason for consultation and follow up:Cardiac evaluation of 5 beats of non sustained ventricular tachycardia, history of pauci-immune crescentic glomerulonephritis, on hemodialysis, hypertension Seen and examined by me and Dr. Sprague Objective - Vital Signs/Intake and Output Vital Signs (last 24 hours): Temp Pulse Resp BP Pulse Ox 97.6 F 69 20 143/83 97 10/28/18 08:15 10/29/18 06:00 10/28/18 08:15 10/28/18 08:15 10/28/18 08:15 Intake and Output: 10/29/18 10/29/18 06:59 18:59 Intake Total 1500 Output Total 300 Balance 1200 - Medications Medications: Current Medications Acetaminophen (Tylenol 325mg Tab) 650 mg PO Q4 PRN PRN Reason: Pain, Mild (1-3) Last Admin: 10/25/18 21:21 Dose: 650 mg Amlodipine Besylate (Norvasc) 5 mg PO DAILY [facility] Last Admin: 10/28/18 09:02 Dose: 5 mg Calcium Acetate (Phoslo) 667 mg PO WM BAKARI Last Admin: 10/28/18 17:36 Dose: 667 mg Dextrose (Dextrose 50% Inj) 0 ml IV STAT PRN; Protocol PRN Reason: Hypoglycemia Protocol Diphenhydramine HCl (Benadryl) 12.5 mg PO HS PRN PRN Reason: Insomnia Last Admin: 10/26/18 22:36 Dose: 12.5 mg Diphenhydramine HCl (Benadryl) 25 mg IVP ONCE ONE Stop: 10/30/18 08:01 Diphenhydramine HCl (Benadryl) 25 mg IVP ONCE ONE Stop: 10/31/18 08:01 Heparin Sodium (Porcine) (Heparin) 5,000 units SC Q8 BAKARI; Protocol Last Admin: 10/29/18 06:04 Dose: 5,000 units Dextrose (Dextrose 5% In Water 1000 Ml) 1,000 mls @ 0 mls/hr IV .Q0M PRN; Protocol PRN Reason: Hypoglycemia Protocol Calcium Gluconate 1,000 mg/ (Sodium Chloride) 110 mls @ 110 mls/hr IVPB ONCE ONE Stop: 10/29/18 08:59 Calcium Gluconate 1,000 mg/ (Sodium Chloride) 110 mls @ 110 mls/hr IVPB ONCE ONE Stop: 10/30/18 08:59 Calcium Gluconate 1,000 mg/ (Sodium Chloride) 110 mls @ 110 mls/hr IVPB ONCE ONE Stop: 10/31/18 08:59 Influenza Virus Vaccine (Flucelvax Quad 0768-3800 Syr) 60 mcg IM .ONCE ONE Ondansetron HCl (Zofran Inj) 4 mg IVP Q6H PRN PRN Reason: Nausea/Vomiting Last Admin: 10/28/18 14:04 Dose: 4 mg Pantoprazole Sodium (Protonix Ec Tab) 40 mg PO 0600 [facility] Last Admin: 10/29/18 06:03 Dose: 40 mg Polyethylene Glycol (Miralax) 17 gm PO DAILY PRN PRN Reason: Constipation Last Admin: 10/26/18 18:42 Dose: 17 gm Prednisone (Prednisone Tab) 30 mg PO BID [facility] Last Admin: 10/28/18 17:36 Dose: 30 mg Psyllium Hydrophilic Mucilloid (Hydrocil Instant) 1 pkt PO DAILY [facility] Last Admin: 10/28/18 12:16 Dose: Not Given Trimethoprim/Sulfamethoxazole (Bactrim Ds Tab) 1 tab PO [facility]; Protocol Zolpidem Tartrate (Ambien) 5 mg PO HS PRN PRN Reason: Insomnia Last Admin: 10/28/18 21:29 Dose: 5 mg - Labs Labs: 10/29/18 06:00 10/29/18 06:00 PT 12.2 SECONDS (9.4-12.5) 10/23/18 06:50 INR 1.06 10/23/18 06:50 APTT 33.4 Seconds (25.1-36.5) 10/23/18 06:50 - Constitutional Appears: Non-toxic - Head Exam Head Exam: NORMAL INSPECTION, NORMOCEPHALIC - Eye Exam Eye Exam: Normal appearance Pupil Exam: NORMAL ACCOMODATION - ENT Exam ENT Exam: Mucous Membranes Moist, Normal Exam - Respiratory Exam Respiratory Exam: Decreased Breath Sounds, Clear to Ausculation Bilateral, NORMAL BREATHING PATTERN - Cardiovascular Exam Cardiovascular Exam: REGULAR RHYTHM, +S1, +S2 Additional comments: right chest permacath Telemetry NSR 60-70's - GI/Abdominal Exam GI & Abdominal Exam: Soft, Normal Bowel Sounds - Exam Additional comments: on hemodialysis - Extremities Exam Extremities Exam: Full ROM, Normal Capillary Refill - Neurological Exam Neurological Exam: Alert, Awake, Oriented x3 - Psychiatric Exam Psychiatric exam: Normal Affect, Normal Mood - Skin Skin Exam: Dry, Normal Color, Warm Assessment and Plan - Assessment and Plan (Free Text) Assessment: A 68 year old female who was admitted for renal failure. history of pauci-immune crescentic glomerulonephritis, ANCA positive, hypertension, breast cancer with right breast lumpectomy with radiation, GERD. Cardiac consult was called for 5 beats of V-tach non-sustained, possible electrolyte related. Patient asymptomatic. Will order Echo to evaluate LV function. Out patient stress test. Plan: no distress, denies chest pain Heart rate stable, NSR 60's, so far no further episode of Vtach/PVC's Blood pressure controlled For ECHO today Continue current treatment Replenish electrolytes as needed Will follow up Plan and treatment discussed with Dr. Sprague
[2018-10-29] MEDS: Tmp-Smz 800 mg-160 mg DS Tab PO SCH (12:59)
[2018-10-29] MEDS: Psyllium Packet PO SCH (13:00)
--- NOTE | 2018-10-29 16:12 | CP.PCM.APN ---
Subjective - Date & Time of Evaluation Date of Evaluation: 10/29/18 Time of Evaluation: 09:40 - Subjective Subjective: Pt. seen and examined in bed, currently receiving Plasmapheresis at bedside, 2nd of 4 treatments. States tolerating , denied any fever or chills, denied shortness of breath or palpitations, states last night had irregular heart beat, denied any chest discomfort this am. Review of Systems - Constitutional Constitutional: As Per HPI - EENT Eyes: As Per HPI - Cardiovascular Cardiovascular: As Per HPI, Irregular Heart Rhythm - Respiratory Respiratory: As Per HPI - Gastrointestinal Gastrointestinal: Loose Stools Additional comments: states had large soft BM, - Musculoskeletal Musculoskeletal: As Per HPI - Neurological Neurological: As Per HPI - Hematologic/Lymphatic Hematologic: As Per HPI Objective - Vital Signs/Intake and Output Vital Signs (last 24 hours): Temp Pulse Resp BP Pulse Ox 97.6 F 87 20 183/92 H 93 L 10/29/18 08:27 10/29/18 13:05 10/29/18 08:27 10/29/18 13:05 10/29/18 08:27 Intake and Output: 10/29/18 10/29/18 06:59 18:59 Intake Total 1500 Output Total 300 Balance 1200 - Medications Medications: Current Medications Acetaminophen (Tylenol 325mg Tab) 650 mg PO Q4 PRN PRN Reason: Pain, Mild (1-3) Last Admin: 10/25/18 21:21 Dose: 650 mg Amlodipine Besylate (Norvasc) 5 mg PO DAILY [facility] Last Admin: 10/29/18 13:05 Dose: 5 mg Calcium Acetate (Phoslo) 667 mg PO WM [facility] Last Admin: 10/29/18 13:13 Dose: Not Given Dextrose (Dextrose 50% Inj) 0 ml IV STAT PRN; Protocol PRN Reason: Hypoglycemia Protocol Diphenhydramine HCl (Benadryl) 12.5 mg PO HS PRN PRN Reason: Insomnia Last Admin: 10/26/18 22:36 Dose: 12.5 mg Diphenhydramine HCl (Benadryl) 25 mg IVP ONCE ONE Stop: 10/30/18 08:01 Diphenhydramine HCl (Benadryl) 25 mg IVP ONCE ONE Stop: 10/31/18 08:01 Heparin Sodium (Porcine) (Heparin) 5,000 units SC Q8 [facility]; Protocol Last Admin: 10/29/18 15:20 Dose: Not Given Dextrose (Dextrose 5% In Water 1000 Ml) 1,000 mls @ 0 mls/hr IV .Q0M PRN; Protocol PRN Reason: Hypoglycemia Protocol Calcium Gluconate 1,000 mg/ (Sodium Chloride) 110 mls @ 110 mls/hr IVPB ONCE ONE Stop: 10/30/18 08:59 Calcium Gluconate 1,000 mg/ (Sodium Chloride) 110 mls @ 110 mls/hr IVPB ONCE ONE Stop: 10/31/18 08:59 Influenza Virus Vaccine (Flucelvax Quad [id number] Syr) 60 mcg IM .ONCE ONE Ondansetron HCl (Zofran Inj) 4 mg IVP Q6H PRN PRN Reason: Nausea/Vomiting Last Admin: 10/28/18 14:04 Dose: 4 mg Pantoprazole Sodium (Protonix Ec Tab) 40 mg PO 0600 [facility] Last Admin: 10/29/18 06:03 Dose: 40 mg Polyethylene Glycol (Miralax) 17 gm PO DAILY PRN PRN Reason: Constipation Last Admin: 10/26/18 18:42 Dose: 17 gm Prednisone (Prednisone Tab) 30 mg PO BID [facility] Last Admin: 10/29/18 12:58 Dose: 30 mg Psyllium Hydrophilic Mucilloid (Hydrocil Instant) 1 pkt PO DAILY [facility] Last Admin: 10/29/18 13:00 Dose: 1 pkt Trimethoprim/Sulfamethoxazole (Bactrim Ds Tab) 1 tab PO MWF [facility]; Protocol Last Admin: 10/29/18 12:59 Dose: 1 tab Zolpidem Tartrate (Ambien) 5 mg PO HS PRN PRN Reason: Insomnia Last Admin: 10/28/18 21:29 Dose: 5 mg - Labs Labs: 10/29/18 06:00 10/29/18 06:00 PT 12.2 SECONDS (9.4-12.5) 10/23/18 06:50 INR 1.06 10/23/18 06:50 APTT 33.4 Seconds (25.1-36.5) 10/23/18 06:50 - Constitutional Appears: Well, Non-toxic - Head Exam Head Exam: NORMOCEPHALIC - Eye Exam Eye Exam: Normal appearance - ENT Exam ENT Exam: Mucous Membranes Moist - Neck Exam Neck Exam: Full ROM - Respiratory Exam Respiratory Exam: Clear to Ausculation Bilateral - Cardiovascular Exam Cardiovascular Exam: REGULAR RHYTHM, +S1, +S2 - GI/Abdominal Exam GI & Abdominal Exam: Soft - Rectal Exam Rectal Exam: Deferred - Extremities Exam Extremities Exam: Full ROM, Normal Inspection - Back Exam Back Exam: NORMAL INSPECTION - Neurological Exam Neurological Exam: Alert, Awake, Oriented x3 - Psychiatric Exam Psychiatric exam: Normal Affect, Normal Mood - Skin Skin Exam: Dry, Intact, Normal Color, Warm Assessment and Plan - Assessment and Plan (Free Text) Assessment: Assessment: 68 yr old white female with pmh sig for Pauci-Immune Cresentic glomerulonephritis, invasive ductal ca and htn who preented to ED with increased lethargy and was found to have a cr off 11.2 and k of 6.5,she was admitted to the ICU and had HD catheter inserted, has undergone 3 dialysis sessions, now being treated for persistent acute kidney injury, likely secondary to Daphnie's, Plan: 1. Hyperkalemia Improved -Monitor electrolytes. 2. ANA- likely Daphnie's - s/p CT guided renal biopsy, 10/24, results are pending, - Plasmapheresis Day 2 , per Dr. Trinh, - HD per Renal, monitor Is Os, trend Bun/Creatinine 3. Anemia- likely secondary to ANA Improved, s/p blood transfusion, PRBCs, monitor Cbc. 4. NSVT- Run of 5 beats Echo completed, results pending, Cardiology rec. stess test as outpatient, pt . asymptomatic. Plasmaphereis last day 10/31, awaiting rec from renal regarding further HD needed for DC clearance, likely by the weekend. Continue to monitor clinical status and follow closely. Monitor, Bun/ Creat, will discuss with consultants, PmD
--- NOTE | 2018-10-29 18:18 | CARD ---
APPROVED REPORT Date of service: 10/29/2018 EXAM: Two-dimensional and M-mode echocardiogram with Doppler and color Doppler. 2D DIMENSIONS Left Atrium (2D)3.4 (1.6-4.0cm)IVSd0.9 (0.7-1.1cm) LVDd4.9 (3.9-5.9cm)PWd0.9 (0.7-1.1cm) LVDs3.5 (2.5-4.0cm)FS (%) 29.2 % LVEF (%)55.9 (>50%) M-Mode DIMENSIONS Aortic Root2.20 (2.2-3.7cm)Aortic Cusp Exc.1.50 (1.5-2.0cm) Aortic Valve AoV Peak Trzdhdpt413.0cm/Scott Peak GR.7mmHg Mitral Valve E/A ratio0.0 TDI E/Lateral E'0.0E/Medial E'0.0 Tricuspid Valve TR Peak [id number] [id number] Peak Gr.19mmHg [id number] LEFT VENTRICLE The left ventricle is normal size. The left ventricular function is normal. The left ventricular ejection fraction is within the normal range. 56% RIGHT VENTRICLE The right ventricle is normal size. The right ventricular systolic function is normal. ATRIA The left atrium size is normal. The right atrium size is normal. AORTIC VALVE Thickened Cakcified Leaflets. Opening Normal. MITRAL VALVE Thickened Mitral V mi e Leaflets. Valve Opening Normal. Mitral regurgitation is moderate. TRICUSPID VALVE The tricuspid valve is normal in structure. There is mild tricuspid regurgitation. PERICARDIAL EFFUSION Trace Pericardial Effusion. <Conclusion> The left ventricle is normal size. The left ventricular function is normal. The left ventricular ejection fraction is within the normal range. 56% The right ventricle is normal size. The right ventricular systolic function is normal. The left atrium size is normal. The right atrium size is normal. Thickened Cakcified Aortic Valve Leaflets. Opening Normal. Thickened Mitral V mi e Leaflets. Valve Opening Normal. Mitral regurgitation is moderate. The tricuspid valve is normal in structure. There is mild tricuspid regurgitation. Trace Pericardial Effusion.
--- NOTE | 2018-10-29 18:29 | PN ---
DATE: 10/29/2018 LOCATION: The patient is in room 366, bed 1. REASON FOR CONSULTATION: Followup short run of 5 PVCs in a row, nonsustained ventricular tachycardia, hypertension, renal failure. SUBJECTIVE: The patient is lying flat in bed without chest pain, shortness of breath, palpitation. The patient had run of 5 PVCs in a row, for which a consultation was called for nonsustained ventricular tachycardia. The patient denies any cardiac symptoms. The patient is getting plasmapheresis for her pauci-immune crescentic glomerulonephritis, ANCA positive. The patient is also known to have hypertension and history of breast cancer, treated with lumpectomy and radiation therapy. The patient also has a history of esophageal reflux. PHYSICAL EXAMINATION: VITAL SIGNS: Blood pressure 162/88, respirations 20, pulse 65,temperature 97.6. Yesterday, blood pressure was 143/83. The patient is afebrile. HEENT: Head is normocephalic. Eyes: Pupils normal. Conjunctivae, slightly pale. NECK: JVP low. Carotids equal. THORAX: AP diameter normal. LUNGS: Clear. CARDIOVASCULAR: S1 and S2. ABDOMEN: Soft. No tenderness. No organomegaly. EXTREMITIES: No clubbing. No cyanosis. LABORATORY DATA: WBC 22.3, hemoglobin 10.0, hematocrit 30.6, platelets 225. Sodium 136, potassium 4.0, BUN 70, creatinine 4.8, sugar 117, calcium 8.1. Phosphorus 4.3, magnesium 2.8. AST 43, ALT 62. Total protein 5.7, albumin 3.2. DIAGNOSES: Five premature ventricular contractions in a row, nonsustained ventricular tachycardia, asymptomatic; renal failure; pauci-immune crescentic glomerulonephritis, antineutrophil cytoplasmic antibodies positive; esophageal reflux disease; hypertension. PLAN: The patient is going to have echocardiogram today. The patient continued to have plasmapheresis for her underlying renal disease. The patient is on amlodipine 5 mg daily. Since blood pressure is elevated, we increased it to 10 mg daily. The patient is being followed by Nephrology. The patient is going to plasmapheresis every day, and the patient wants to postpone the stress test, and she will do it later on, and the patient is asymptomatic on cardiac point anyway. So, we will follow with you. Mohini Sprague MD
--- NOTE | 2018-10-30 01:08 | PN ---
DATE: 10/29/2018 SUBJECTIVE: The patient is seen sitting in bed. She is awake. She is alert. She is comfortable. She is anxious. She has multiple visitors at the bedside. PHYSICAL EXAMINATION: GENERAL: Elderly lady sitting in bed. VITAL SIGNS: Blood pressure 163/78, heart rate 84, respiratory rate 20, and temperature 97.7. HEENT: Normocephalic and atraumatic. Positive pallor. NECK: Supple. No JVD. LUNGS: Bilateral equal air entry, bilateral equal expansion. CARDIAC: S1 and S2, regular rate and rhythm. No murmur. No rub. ABDOMEN: Soft, nondistended, and nontender. Bowel sounds present. EXTREMITIES: No lower extremity edema. INTAKE AND OUTPUT: 1650/300. LABORATORY DATA. WBC 22, hemoglobin 10, hematocrit 30.6, and platelets 225. Sodium 136, potassium 4.9, chloride 94, CO2 of 34, BUN 70, creatinine 4.8, glucose 117, calcium 8.1, phosphorus 4.3, and magnesium 2.8. AST 43 and ALT 62. DIAGNOSTIC DATA: Echocardiogram; normal left ventricular size and function, EF 56%, mild tricuspid regurg, and trace pericardial effusion. CURRENT MEDICATIONS: Ambien, Bactrim Saturday, Saturday, Saturday, Benadryl, calcium gluconate, MiraLax 17 g daily p.r.n., amlodipine 10, PhosLo, prednisone, Protonix, Tylenol, Zofran, and Benadryl. ASSESSMENT: 1. Relapse of Daphnie's granulomatosis, biopsy showing mostly globally sclerotic glomeruli. Lot of fibrosis and chronicity, but some active cellular suppressants 5/16 cellular crescents. 2. Acute kidney injury. 3. Uncontrolled hypertension. 4. Hyperphosphatemia. 5. Leukocytosis secondary to steroids. PLAN: 1. Continue plasmapheresis. 2. Continue steroids. 3. Case discussed with Dr. Trinh, will give her 500 mg of cyclophosphamide tomorrow. 4. Continue amlodipine for blood pressure control. 5. Continue to hold losartan. 6. The patient to get rituximab as outpatient. Monserrat French MD [facility] # [id number]
[2018-10-30 07:04] LABS: HEMOGLOBIN 9.9 g/dL (12.0-16.0); MEAN CELL VOLUME 89.7 fl (80.0-105.0); MEAN CORPUSCULAR HGB CONC 32.4 g/dl (31.0-37.0); MEAN PLATELET VOLUME 10.9 fl (7.0-11.0); RBC 3.41 10^6/uL (3.5-6.1); RED CELL DISTRIBUTION WIDTH 14.5 % (11.5-14.5); WHITE BLOOD COUNT 22.7 10^3/uL (4.5-11.0)
[2018-10-30 07:32] LABS: ALB/GLOB RATIO 1.3 (1.1-1.8); ALBUMIN 3.2 g/dL (3.0-4.8); CALCIUM 7.8 mg/dL (8.4-10.5)
[2018-10-30] MEDS ORDERED: DiphenhydrAMINE 50 mg/ml Inj IVP ONE (08:00)
[2018-10-30] MEDS: Psyllium Packet PO SCH (09:17)
--- NOTE | 2018-10-30 09:39 | CP.PCM.PN ---
Subjective - Date & Time of Evaluation Date of Evaluation: 10/30/18 Time of Evaluation: 06:55 - Subjective Subjective: Lying in bed, awake, alert, no distress Reason for consultation and follow up:Cardiac evaluation of 5 beats of non sustained ventricular tachycardia, history of pauci-immune crescentic glomerulonephritis, on hemodialysis, hypertension Seen and examined by me and Dr. Calvert Objective - Vital Signs/Intake and Output Vital Signs (last 24 hours): Temp Pulse Resp BP Pulse Ox 97.5 F L 73 20 154/75 H 94 L 10/30/18 08:36 10/30/18 08:36 10/30/18 08:36 10/30/18 09:17 10/30/18 08:36 Intake and Output: 10/30/18 10/30/18 06:59 18:59 Intake Total 600 Output Total 1400 Balance -800 - Medications Medications: Current Medications Acetaminophen (Tylenol 325mg Tab) 650 mg PO Q4 PRN PRN Reason: Pain, Mild (1-3) Last Admin: 10/25/18 21:21 Dose: 650 mg Amlodipine Besylate (Norvasc) 10 mg PO DAILY [facility] Last Admin: 10/30/18 09:17 Dose: 10 mg Calcium Acetate (Phoslo) 667 mg PO WM [facility] Last Admin: 10/30/18 09:18 Dose: 667 mg Dextrose (Dextrose 50% Inj) 0 ml IV STAT PRN; Protocol PRN Reason: Hypoglycemia Protocol Diphenhydramine HCl (Benadryl) 12.5 mg PO HS PRN PRN Reason: Insomnia Last Admin: 10/26/18 22:36 Dose: 12.5 mg Diphenhydramine HCl (Benadryl) 25 mg IVP ONCE ONE Stop: 10/31/18 08:01 Heparin Sodium (Porcine) (Heparin) 5,000 units SC Q8 [facility]; Protocol Last Admin: 10/30/18 05:18 Dose: 5,000 units Dextrose (Dextrose 5% In Water 1000 Ml) 1,000 mls @ 0 mls/hr IV .Q0M PRN; Protocol PRN Reason: Hypoglycemia Protocol Calcium Gluconate 1,000 mg/ (Sodium Chloride) 110 mls @ 110 mls/hr IVPB ONCE ONE Stop: 10/31/18 08:59 Influenza Virus Vaccine (Flucelvax Quad [id number] Syr) 60 mcg IM .ONCE ONE Ondansetron HCl (Zofran Inj) 4 mg IVP Q6H PRN PRN Reason: Nausea/Vomiting Last Admin: 10/28/18 14:04 Dose: 4 mg Pantoprazole Sodium (Protonix Ec Tab) 40 mg PO 0600 [facility] Last Admin: 10/29/18 06:03 Dose: 40 mg Polyethylene Glycol (Miralax) 17 gm PO DAILY PRN PRN Reason: Constipation Last Admin: 10/26/18 18:42 Dose: 17 gm Prednisone (Prednisone Tab) 30 mg PO BID [facility] Last Admin: 10/30/18 09:18 Dose: 30 mg Psyllium Hydrophilic Mucilloid (Hydrocil Instant) 1 pkt PO DAILY [facility] Last Admin: 10/30/18 09:17 Dose: 1 pkt Trimethoprim/Sulfamethoxazole (Bactrim Ds Tab) 1 tab PO MWF [facility]; Protocol Last Admin: 10/29/18 12:59 Dose: 1 tab Zolpidem Tartrate (Ambien) 5 mg PO HS PRN PRN Reason: Insomnia Last Admin: 10/29/18 23:03 Dose: 5 mg - Labs Labs: 10/30/18 06:30 10/30/18 06:30 PT 12.2 SECONDS (9.4-12.5) 10/23/18 06:50 INR 1.06 10/23/18 06:50 APTT 33.4 Seconds (25.1-36.5) 10/23/18 06:50 - Constitutional Appears: Non-toxic, No Acute Distress - Head Exam Head Exam: NORMAL INSPECTION, NORMOCEPHALIC - Eye Exam Eye Exam: Normal appearance Pupil Exam: NORMAL ACCOMODATION - ENT Exam ENT Exam: Mucous Membranes Moist, Normal Exam - Respiratory Exam Respiratory Exam: Clear to Ausculation Bilateral, NORMAL BREATHING PATTERN - Cardiovascular Exam Cardiovascular Exam: REGULAR RHYTHM, +S1, +S2 - GI/Abdominal Exam GI & Abdominal Exam: Soft, Normal Bowel Sounds Additional comments: right chest permacath - Extremities Exam Extremities Exam: Full ROM, Normal Capillary Refill - Neurological Exam Neurological Exam: Alert, Awake, Oriented x3 - Psychiatric Exam Psychiatric exam: Normal Affect, Normal Mood - Skin Skin Exam: Dry, Normal Color, Warm Assessment and Plan - Assessment and Plan (Free Text) Assessment: A 68 year old female who was admitted for renal failure. history of pauci-immune crescentic glomerulonephritis, ANCA positive, hypertension, breast cancer with right breast lumpectomy with radiation, GERD. Cardiac consult was called for 5 beats of V-tach non-sustained, possible electrolyte related. Patient asymptomatic. Out patient stress test. On daily plasma pheresis until 10/31/2018. Echo done to evaluate LV function. Patient asymptomatic. Plan: Echo done-LVEF 56%, thickened aortic and mitral valve leaflets, normal opening moderate MR, mild TR, trace pericardial effusion. No distress, denies chest pain Heart rate stable,telemetry NSR 60's, Stable cardiac status Out patient stress test On Norvasc 10 mg daily, Prednisone 30 mg BID, Continue current treatment On daily plasma pheresis for underlying renal disease Will follow up Plan and treatment discussed with Dr. Calvert
--- NOTE | 2018-10-30 13:28 | CP.PCM.PCO ---
Physician Communication Note - Physician Communication Note Physician Communication Note: pt.day 3 plasmapheresis,awaiting clearance from renal,renal bx +Daphnie's,
--- NOTE | 2018-10-30 13:29 | CP.PCM.PCO ---
Physician Communication Note - Physician Communication Note Physician Communication Note: per PMD anticipate DC home Sat/Saturday pending nephro clearance, rec re HD
--- NOTE | 2018-10-30 13:41 | CP.PCM.PCO ---
Physician Communication Note - Physician Communication Note Physician Communication Note: For Cytoxan tommorow as per Nephro/Hemonc. MOnitor for SE post infusion
[2018-10-30] MEDS ORDERED: Sodium Chloride 0.9% 1,000 ML IV SCH (14:45)
--- NOTE | 2018-10-30 14:59 | PN ---
DATE: 10/30/2018 LOCATION: The patient is in room 366, bed 1. Detailed progress note has been already written by Charlene Magaña and this is an additional note. Patient had 3 days ago run of 5 PVCs in a row, which is a nonsustained ventricular tachycardia, patient was asymptomatic, so a cardiac consult was requested for evaluation. Patient denies any chest pain, shortness of breath or palpitation. Patient has pauci immune crescentic glomerulonephritis, ANCA positive, hypertension, history of breast cancer, treated with lumpectomy, radiation therapy and esophageal reflux disease. Patient plasmapheresis and patient does not have any symptoms of cardiac origin. PHYSICAL EXAMINATION VITAL SIGNS: Stable. Blood pressure is 154/75. LUNGS: Clear. CARDIOVASCULAR: S1, S2. Patient's echocardiogram was done on 10/29/2018, which showed normal LV size, normal LV ejection 56%, moderate mitral regurgitation, mild tricuspid regurgitation and yesterday I increased patient's amlodipine to 10 mg, and she used to get 5 mg to 10 mg a day because of her elevated blood pressure, so monitored the blood pressure. If it continues to be high, then adjust the medication. Patient was suggested IV Lexiscan stress test, she wants to wait and that she would like to do later on, anyhow she is clinically cardiac status is stable, continue present therapy, we will follow. Mohini Sprague MD
[2018-10-30] MEDS ORDERED: FAMOTIDINE IVPB ONE (15:00)
[2018-10-30] MEDS ORDERED: DEXAMETHASONE IVPB ONE (15:00)
[2018-10-30] MEDS ORDERED: DIPHENHYDRAMINE IVPB ONE (15:00)
[2018-10-30] MEDS ORDERED: [UNRECOGNIZED DRUG - OTHER] IVPB ONE (15:00)
[2018-10-30] MEDS ORDERED: ONDANSETRON IVPB ONE (15:00)
--- NOTE | 2018-10-30 19:01 | PN ---
DATE: 10/29/2018 SUBJECTIVE: The patient is seen, sitting in chair. The patient is awake, she is alert, and she is comfortable. She reports that she is urinating more. She is feeling better. PHYSICAL EXAMINATION: GENERAL: Elderly lady sitting in chair. VITAL SIGNS: Blood pressure 154/75, heart rate 73, respiratory rate 20, and temperature 97.5. HEENT: Normocephalic and atraumatic. Positive pallor. NECK: Supple. No JVD. LUNGS: Bilateral equal air entry, bilateral rhonchi, and no rales. CARDIAC: S1 and S2, regular rate and rhythm. No murmur. No rub. ABDOMEN: Distended, soft. Bowel sounds present. EXTREMITIES: 1+ petting edema. INTAKE AND OUTPUT: 600/1400. LABORATORY DATA: WBC 22.7, hemoglobin 9.9, hematocrit 30.6, and platelets 213. Sodium 130, potassium 4.6, chloride 87, CO2 of 34, BUN 78, creatinine 5.2. Glucose 111. Calcium 7.8, phosphorus 4.4, and magnesium 3.0. AST 34, ALT 40, albumin 3.2, ASSESSMENT AND PLAN: 1. glomerulonephritis, Daphnie's granulomatosis, relapsed. 2. Acute kidney injury, initially oliguric now with increased urine output. 3. Uncontrolled hypertension. 4. Anemia of chronic disease. 5. Hyperphosphatemia. 6. Leukocytosis. 7. Anxiety. 8. Hyponatremia. 9. Secondary hyperparathyroidism. PLAN: 1. The patient received 3 g of methylprednisolone, now she is on p.o. prednisone. 2. The patient received two dialysis treatment initially. We will do dialysis again tomorrow. 3. Currently receiving plasmapheresis, may require additional treatment on Saturday. 4. Hemoglobin is stable. 5. Cyclophosphamide 500 mg IV piggyback today, with pre-medication with Benadryl, Pepcid, Zofran, and . 6. Monitor daily labs. 7. Repeat in a.m. 8. Repeat urinalysis. Monserrat French MD [facility] # [id number]
[2018-10-30 19:28] LABS: PH,URINE 8.5 (4.7-8.0); URINE BILIRUBIN NEGATIVE (NEGATIVE); URINE BLOOD LARGE (NEGATIVE); URINE GLUCOSE (UA) 100 mg/dL (NEGATIVE); URINE LEUKOCYTE ESTERASE MODERATE Leu/uL (NEGATIVE); URINE PROTEIN 100 mg/dL (<30 mg/dL); URINE UROBILINOGEN 0.2 E.U./dL (<1 E.U./dL)
[2018-10-30 19:43] LABS: URINE APPEARANCE SL CLOUDY (CLEAR); URINE COLOR YELLOW (YELLOW)
[2018-10-30 20:19] LABS: URINE BACTERIA MOD /hpf
[2018-10-30] MEDS: POLYETHYLENE GLYCOL 3350 17 GM/Dose PACKET PO PRN (21:24)
--- NOTE | 2018-10-31 01:58 | PN ---
DATE: 10/30/2018 SUBJECTIVE: The patient was seen this morning in room 366, bed 1. Resting comfortably bed in bed with her gentleman friend at the bedside. She is awake, alert, clear, in good spirits, about to undergo plasmapheresis. Dialysis has been underway as well. Her BUN and creatinine have improved. Creatinine is . Our plan is to continue plasmapheresis, dialysis tomorrow, and then she will be a candidate for outpatient continue therapy. We will need to talk and confirm with Renal as well as Oncology to our plans. Simon Webb MD
[2018-10-31] MEDS: Pantoprazole 40 mg EC Tab PO SCH (05:46)
[2018-10-31 07:16] LABS: HEMOGLOBIN 8.8 g/dL (12.0-16.0); MEAN CELL VOLUME 89.2 fl (80.0-105.0); MEAN CORPUSCULAR HEMOGLOBIN 29.6 pg (25.0-35.0); MEAN CORPUSCULAR HGB CONC 33.2 g/dl (31.0-37.0); MEAN PLATELET VOLUME 10.2 fl (7.0-11.0); RBC 2.97 10^6/uL (3.5-6.1); RED CELL DISTRIBUTION WIDTH 14.5 % (11.5-14.5); WHITE BLOOD COUNT 19.3 10^3/uL (4.5-11.0)
[2018-10-31 07:34] LABS: ALB/GLOB RATIO 1.2 (1.1-1.8); ALBUMIN 2.7 g/dL (3.0-4.8); CALCIUM 7.1 mg/dL (8.4-10.5)
[2018-10-31] MEDS ORDERED: DiphenhydrAMINE 50 mg/ml Inj IVP ONE (08:00)
[2018-10-31] MEDS: Tmp-Smz 800 mg-160 mg DS Tab PO SCH (09:00)
[2018-10-31] MEDS: Psyllium Packet PO SCH (09:01)
--- NOTE | 2018-10-31 11:15 | PN ---
DATE: 10/31/2018 REASON FOR CONSULTATION: Followup cardiac evaluation for 3 PVCs, nonsustained VT. SUBJECTIVE: The patient denies any chest pain, shortness of breath, or any palpitation. PHYSICAL EXAMINATION: GENERAL: Not in apparent distress. VITAL SIGNS: Temperature afebrile. Heart rate is , blood pressure 147/70. HEENT: PERRLA intact. Extraocular muscles are intact. NECK: Supple. No carotid bruit. No thyromegaly. CHEST: Clear to auscultation. HEART: S1 and S2, regular. ABDOMEN: Soft. EXTREMITIES: Clubbing and cyanosis negative. LABORATORY DATA: Blood workup: WBC 19, hemoglobin 8.9, hematocrit 26.5, platelet count 163. Chemistry showed sodium 123, potassium 4.7, chloride 8.6, carbon dioxide 33, anion gap of 12, BUN 85, and creatinine 0.1 IMPRESSION: A 68-year-old female with a past medical history significant for pauci-immune crescentic glomerulonephritis, antineutrophil cytoplasmic antibodies positive, history of esophageal reflux, on dialysis. The patient had echocardiography done yesterday that showed ejection fraction 56%, moderate mitral regurgitation, mild tricuspid regurgitation. Blood pressure is borderline elevated. Suggest aggressive blood pressure control. Because the patient is on steroid, blood pressure will go up. Amlodipine 10. We will increase 25 b.i.d. hydralazine, avoid nephrotoxic medications. Discussed with and the patient. Stress test as an outpatient may consider for risk of stratification, otherwise the patient is stable. We will follow with you. We will add hydralazine 25 p.o. b.i.d. and accordingly adjust more if needed. We will increase to 50 b.i.d. Because the patient is getting steroid, expect increasing blood pressure. We will follow with you. I discussed with the patient and her . Thank you Dr. Webb, for providing us the opportunity in taking care of your patient, Beatriz Badillo. Mohini Calvert MD
--- NOTE | 2018-10-31 12:23 | PN ---
DATE: 10/31/2018 SUBJECTIVE: The patient is seen sitting in bed. She is awake, she is alert, she is comfortable. Boyfriend is at bedside. She denies any chest pain. She complains of constipation. She reports that she has not moved her bowels since Saturday. She denies any chest tightness. She denies any urinary complaints. PHYSICAL EXAMINATION: GENERAL: Elderly lady sitting in bed. VITAL SIGNS: Blood pressure 147/70, heart rate 65, respiratory rate 20, temperature 97.4. HEENT: Normocephalic, atraumatic, positive pallor. NECK: Supple, no JVD. LUNGS: Bilateral equal air entry, bilateral equal expansion, no rales. CARDIAC: S1, S2, regular rate and rhythm, no murmur, no rub. ABDOMEN: Obese, distended, soft, nontender, bowel sounds present. EXTREMITIES: 2+ pitting edema of the lower extremities. Intake and output 970/525. LABORATORY DATA: WBC 19, hemoglobin 8.8, hematocrit 26.5, platelets 163. Sodium 126, potassium 4.7, chloride 86, CO2 33, BUN 85, creatinine 5.1, glucose 108, calcium 7.1, phosphorus 5.2, magnesium 2.8, albumin 2.7, corrected calcium is 7.8. PTH 228. Repeat urinalysis yellow, slightly cloudy, pH of 8.5, specific gravity 1.020, protein 100, glucose 100, blood large, leukocyte esterase moderate, RBCs 10-15, WBCs 5-10. CURRENT MEDICATIONS: Ambien; Apresoline 25 b.i.d.; Bactrim Saturday, Saturday, Saturday; Benadryl; prednisone 30 b.i.d.; Protonix 40; Tylenol; Zofran p.r.n.; calcium gluconate 1 g given this morning; cyclophosphamide 500 mg given IV piggyback yesterday. ASSESSMENT AND PLAN: 1. Relapse of pauci immune glomerulonephritis. 2. Acute kidney injury. 3. Severe anemia. 4. Uncontrolled hypertension. 5. Secondary hyperparathyroidism. 6. Constipation. PLAN: 1. Plasmapheresis today. 2. Dialysis today. 3. Transfuse 1 unit of blood on dialysis today. 4. Urine culture. 5. Start Hectorol 0.5 mcg p.o. daily. 6. Make arrangement for outpatient dialysis. 7. Plan for rituximab next week. 8. Will likely need another plasmapheresis tomorrow. 9. We will discuss with . Monserrat French MD
[2018-11-01] MEDS: Pantoprazole 40 mg EC Tab PO SCH (06:53)
[2018-11-01] MEDS: POLYETHYLENE GLYCOL 3350 17 GM/Dose PACKET PO PRN (06:58)
[2018-11-01 07:04] LABS: HEMOGLOBIN 10.5 g/dL (12.0-16.0); MEAN CELL VOLUME 89.6 fl (80.0-105.0); MEAN CORPUSCULAR HEMOGLOBIN 29.5 pg (25.0-35.0); MEAN CORPUSCULAR HGB CONC 32.9 g/dl (31.0-37.0); MEAN PLATELET VOLUME 10.8 fl (7.0-11.0); RBC 3.56 10^6/uL (3.5-6.1); RED CELL DISTRIBUTION WIDTH 15.9 % (11.5-14.5)
[2018-11-01 07:25] LABS: ALB/GLOB RATIO 1.2 (1.1-1.8); ALBUMIN 2.8 g/dL (3.0-4.8); CALCIUM 7.4 mg/dL (8.4-10.5)
[2018-11-01] MEDS ORDERED: DiphenhydrAMINE 50 mg/ml Inj IVP ONE (08:00)
--- NOTE | 2018-11-01 08:08 | CP.PCM.PN ---
Subjective - Date & Time of Evaluation Date of Evaluation: 11/01/18 Time of Evaluation: 06:40 - Subjective Subjective: Lying in bed, awake, alert, no distress, feels weak Reason for consultation and follow up:Cardiac evaluation of 5 beats of non sustained ventricular tachycardia, history of pauci-immune crescentic glomerulonephritis, on hemodialysis, hypertension Seen and examined by me and Dr. Sprague Objective - Vital Signs/Intake and Output Vital Signs (last 24 hours): Temp Pulse Resp BP Pulse Ox 97.5 F L 67 19 103/86 95 10/31/18 18:00 11/01/18 02:00 10/31/18 18:00 10/31/18 18:00 10/31/18 18:00 Intake and Output: 11/01/18 11/01/18 06:59 18:59 Intake Total 1200 Balance 1200 - Medications Medications: Current Medications Acetaminophen (Tylenol 325mg Tab) 650 mg PO Q4 PRN PRN Reason: Pain, Mild (1-3) Last Admin: 10/25/18 21:21 Dose: 650 mg Amlodipine Besylate (Norvasc) 10 mg PO DAILY [facility] Last Admin: 10/31/18 09:01 Dose: 10 mg Calcium Acetate (Phoslo) 667 mg PO WM [facility] Last Admin: 10/31/18 17:19 Dose: Not Given Dextrose (Dextrose 50% Inj) 0 ml IV STAT PRN; Protocol PRN Reason: Hypoglycemia Protocol Diphenhydramine HCl (Benadryl) 12.5 mg PO HS PRN PRN Reason: Insomnia Last Admin: 10/26/18 22:36 Dose: 12.5 mg Doxercalciferol (Hectorol) 0.5 mcg PO DAILY [facility] Last Admin: 10/31/18 14:04 Dose: 0.5 mcg Hydralazine HCl (Apresoline) 25 mg PO BID [facility] Last Admin: 10/31/18 17:18 Dose: Not Given Calcium Gluconate 1,000 mg/ (Sodium Chloride) 110 mls @ 110 mls/hr IVPB ONCE ONE Stop: 11/01/18 08:59 Influenza Virus Vaccine (Flucelvax Quad 6013-8402 Syr) 60 mcg IM .ONCE ONE Ondansetron HCl (Zofran Inj) 4 mg IVP Q6H PRN PRN Reason: Nausea/Vomiting Last Admin: 10/28/18 14:04 Dose: 4 mg Pantoprazole Sodium (Protonix Ec Tab) 40 mg PO 0600 [facility] Last Admin: 11/01/18 06:53 Dose: 40 mg Polyethylene Glycol (Miralax) 17 gm PO DAILY PRN PRN Reason: Constipation Last Admin: 11/01/18 06:58 Dose: 17 gm Prednisone (Prednisone Tab) 30 mg PO BID [facility] Last Admin: 10/31/18 09:02 Dose: 30 mg Psyllium Hydrophilic Mucilloid (Hydrocil Instant) 1 pkt PO DAILY [facility] Last Admin: 10/31/18 09:01 Dose: 1 pkt Trimethoprim/Sulfamethoxazole (Bactrim Ds Tab) 1 tab PO MWF [facility]; Protocol Last Admin: 10/31/18 09:00 Dose: 1 tab Zolpidem Tartrate (Ambien) 5 mg PO HS PRN PRN Reason: Insomnia Last Admin: 10/31/18 21:55 Dose: 5 mg - Labs Labs: 11/01/18 05:30 11/01/18 05:30 PT 12.2 SECONDS (9.4-12.5) 10/23/18 06:50 INR 1.06 10/23/18 06:50 APTT 33.4 Seconds (25.1-36.5) 10/23/18 06:50 - Constitutional Appears: Non-toxic, No Acute Distress - Head Exam Head Exam: NORMAL INSPECTION, NORMOCEPHALIC - Eye Exam Eye Exam: Normal appearance Pupil Exam: NORMAL ACCOMODATION - ENT Exam ENT Exam: Mucous Membranes Moist - Neck Exam Neck Exam: Full ROM - Respiratory Exam Respiratory Exam: Decreased Breath Sounds, Clear to Ausculation Bilateral, NORMAL BREATHING PATTERN - Cardiovascular Exam Cardiovascular Exam: REGULAR RHYTHM, +S1, +S2 - GI/Abdominal Exam GI & Abdominal Exam: Soft, Normal Bowel Sounds - Extremities Exam Extremities Exam: Full ROM, Normal Capillary Refill - Neurological Exam Neurological Exam: Alert, Awake, Oriented x3 - Psychiatric Exam Psychiatric exam: Normal Affect, Normal Mood - Skin Skin Exam: Dry, Normal Color, Warm Assessment and Plan - Assessment and Plan (Free Text) Assessment: A 68 year old female who was admitted for renal failure. history of pauci-immune crescentic glomerulonephritis, ANCA positive, hypertension, breast cancer with right breast lumpectomy with radiation, GERD. Cardiac consult was called for 5 beats of V-tach non-sustained, possible electrolyte related. Patient asymptomatic. Out patient stress test. On daily plasma pheresis until 10/31/2018. Patient asymptomatic.Echo done-LVEF 56%, hickened aortic and mitral valve leaflets, normal opening, moderate MR, mild TR, trace pericardial effusion. Plan: No distress, denies chest pain, feels weak today Heart rate stable,telemetry NSR 60's, Stable cardiac status Out patient stress test On Norvasc 10 mg daily, Prednisone 30 mg BID,Hydralazine 25 mg BID. Continue current treatment Plasma pheresis for underlying renal disease Renal on consult Discharge planning May discharge from cardiac standpoint Will follow up Plan and treatment discussed with Dr. Sprague
[2018-11-01 09:04] VITALS: RESP 20; TEMP 97.3; O2SAT 96
[2018-11-01 11:17] VITALS: BP 144/68; PULSE 70
[2018-11-01] MEDS: Psyllium Packet PO SCH (12:27)
--- NOTE | 2018-11-01 17:51 | PN ---
DATE: 11/01/2018 SUBJECTIVE: The patient is seen lying in bed. She is awake, she is alert. She is comfortable. She reports feeling better. She had a bowel movement yesterday. PHYSICAL EXAMINATION: GENERAL: Elderly lady sitting in bed. VITAL SIGNS: Blood pressure 144/68, heart rate 70, respiratory rate 20, temperature 97.3. HEENT: Normocephalic, atraumatic, positive pallor. NECK: Supple, no JVD. LUNGS: Bilateral equal entry, bilateral equal expansion. CARDIAC: S1, S2, regular rate and rhythm, no murmur, no rub. ABDOMEN: Obese, distended, soft, nontender, bowel sounds present. EXTREMITIES: 1+ pitting edema of the lower extremities. Intake and output 1575/900 plus 2000 on dialysis. LABORATORY DATA: WBC 19, hemoglobin 10.5, hematocrit 32, platelets 140. Sodium 133, potassium 3.7, chloride 95, CO2 31, BUN 43, creatinine 3.3, glucose 80, calcium 7.4, phosphorus 3.9, magnesium 2.4, albumin 2.8. Corrected calcium is 8.2. Urine culture not sent. CURRENT MEDICATIONS: Hydralazine 25 b.i.d. Bactrim Saturday, Saturday, Saturday. Hectorol 0.5 mcg daily, MiraLax p.r.n., amlodipine 10, PhosLo three times a day with food, prednisone 30 b.i.d., Protonix 40, Tylenol, Zofran. ASSESSMENT: 1. Acute kidney injury, relapse of pauci-immune glomerulonephritis requiring dialysis, plasmapheresis, steroids. 2. Leukocytosis secondary to steroids. 3. Hypertension, fair control. 4. Hyperphosphatemia, resolved. 5. Secondary hyperparathyroidism, hypocalcemia. 6. Anemia. PLAN: 1. Discontinue PhosLo for now. 2. Continue Hectorol. 3. Continue amlodipine and hydralazine for blood pressure control. 4. Continue prednisone 30 mg b.i.d.; Bactrim Saturday, Saturday, Saturday; Protonix. 5. Discharge plan with close outpatient followup. 6. Appointment with Dr. Trinh on Saturday at 09:00 a.m. for rituximab. 6. Appointment with me in my office on Saturday. 7. Case was discussed with drug abuse social worker yesterday to arrange for outpatient dialysis in [facility]. Monserrat French MD
--- NOTE | 2018-11-01 17:56 | PN ---
DATE: 11/01/2018 SUBJECTIVE: The patient seen this Saturday morning in room 366, bed 1 with her gentleman friend bedside. She is undergoing round of plasmapheresis at this time. PHYSICAL EXAMINATION: GENERAL: She is awake, alert, in good spirits. LUNGS: Clear with good aeration. ABDOMEN: Soft, nontender. EXTREMITIES: Show no edema. PLAN: The patient is doing medically well, tolerating treatments and procedures at this point. It is my understanding for renal healthcare risk control consultant that she would be ready for discharge to home after ultrafiltration today. I explained to the patient that she needs followup blood work in a week's time to reassess the renal function and level at her BUN and creatinine to whether continue dialysis will be necessary. She will go home with Uro catheter in place in the right chest in case dialysis is needed. She will followup with Dr. French next week as well as with myself in the next week or two, certainly for the next few days by telephone. The case was discussed with her nurse, if she is cleared by Dr. French, she is ready for discharge to home. FINAL DISCHARGE DIAGNOSES: 1. 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 2. Hypertension. 3. Electrolyte abnormalities related to #1 above. Simon Webb MD
--- NOTE | 2018-11-01 22:19 | PN ---
DATE: 11/01/2018 ADDITION PROGRESS NOTE The patient is in room 366, bed 1. We will call for consult because of five PVCs in a row. Detailed note has been already written by Charlene Magaña, so this is an addition note. We are going to call to see the patient for five PVCs in a row. The patient is asymptomatic. Denies any chest pain, shortness of breath, or palpitation. The patient is getting therapy for pauci-immune crescentic glomerulonephritis. ANCA positive. The patient also has history of hypertension. PHYSICAL EXAMINATION: VITAL SIGNS: The patient's blood pressure is 144/68. LUNGS: Clear. CARDIOVASCULAR: S1 and S2. The patient is asymptomatic from cardiac point of view. LABORATORY DATA: WBC 19, hemoglobin 10.5, hematocrit 31.9, and platelets 140. Sodium 133, potassium 3.7, BUN 43, creatinine 3.3. PLAN: The patient already had echo and few weeks when the patient is more stable, she will do IV Lexiscan stress test. At the time being, the patient does not need any cardiac therapy. Cardiac status is stable with normal LV ejection fraction on echo. So we will continue present therapy. We will follow with you. Mohini Sprague MD
--- NOTE | 2018-11-03 08:58 | PN ---
DATE: 10/31/2018 SUBJECTIVE: The patient was seen this Saturday morning in room 366, bed 1. She is with her at the bedside. She is awake, alert, clear in good spirits. BUN and creatinine are improving. She is quite pleased that she has such a busy day ahead of her today. She is currently getting underway for plasmapheresis to begin. Later in the day, she will undergo dialysis and I am told an extra plasmapheresis has been scheduled for tomorrow as well. PHYSICAL EXAMINATION: GENERAL: The patient remains awake, alert, clear in good spirits. HEART: Regular not tachycardic. EXTREMITIES: Showed no edema. LUNGS: Shows good aeration right and left. ABDOMEN: Soft and nontender. IMPRESSION: Acute renal failure of Daphnie's granulomatosis recurrence. PLAN: As outlined above. We will follow the direction of renal consultants. The patient will then be discharged to home for outpatient Cytoxan with Dr. Trinh and the question as to whether dialysis will need to be continued, will be made at that point. Simon Webb MD
== END 2018-11-01 15:36 | disposition home health service (06) | DRG 542 ==
LOC: ED 10:53 → ERH 15:37 → ICU 19:36 → 3RNO 10-24 19:56
PROVIDERS: ADMIT Internal Medicine; ATTEND Internal Medicine
PROC: 05HM33Z Insertion of Infusion Device into Right Internal Jugular Vein, Percutaneous Approach (ICD-10-PCS; 2018-10-22)
PROC: B543ZZA Ultrasonography of Right Jugular Veins, Guidance (ICD-10-PCS; 2018-10-22)
PROC: 5A1D70Z Performance of Urinary Filtration, Intermittent, Less than 6 Hours Per Day (ICD-10-PCS; 2018-10-23)
PROC: BT221ZZ Computerized Tomography (CT Scan) of Left Kidney using Low Osmolar Contrast (ICD-10-PCS; 2018-10-24)
PROC: 0TB13ZX Excision of Left Kidney, Percutaneous Approach, Diagnostic (ICD-10-PCS; principal; 2018-10-24 16:00)
PROC: 5A1D70Z Performance of Urinary Filtration, Intermittent, Less than 6 Hours Per Day (ICD-10-PCS; 2018-10-25)
PROC: 30233N1 Transfusion of Nonautologous Red Blood Cells into Peripheral Vein, Percutaneous Approach (ICD-10-PCS; 2018-10-27)
PROC: 5A1D70Z Performance of Urinary Filtration, Intermittent, Less than 6 Hours Per Day (ICD-10-PCS; 2018-10-27)
PROC: 30233K1 Transfusion of Nonautologous Frozen Plasma into Peripheral Vein, Percutaneous Approach (ICD-10-PCS; 2018-10-28)
PROC: 5A1D70Z Performance of Urinary Filtration, Intermittent, Less than 6 Hours Per Day (ICD-10-PCS; 2018-10-31)
DX: M31.31 Wegener's granulomatosis with renal involvement (principal); N00.7 Acute nephritic syndrome with diffuse crescentic glomerulonephritis; N17.9 Acute kidney failure, unspecified; I47.2 Ventricular tachycardia; E87.1 Hypo-osmolality and hyponatremia; N25.81 Secondary hyperparathyroidism of renal origin; E87.5 Hyperkalemia; I10 Essential (primary) hypertension; D72.829 Elevated white blood cell count, unspecified; K76.0 Fatty (change of) liver, not elsewhere classified; D63.1 Anemia in chronic kidney disease; F41.9 Anxiety disorder, unspecified; Z99.2 Dependence on renal dialysis; Z87.891 Personal history of nicotine dependence; Z85.3 Personal history of malignant neoplasm of breast; D63.8 Anemia in other chronic diseases classified elsewhere; T38.0X5A Adverse effect of glucocorticoids and synthetic analogues, initial encounter; E83.39 Other disorders of phosphorus metabolism; E83.51 Hypocalcemia; I49.3 Ventricular premature depolarization; K21.9 Gastro-esophageal reflux disease without esophagitis; K59.00 Constipation, unspecified; M31.30 Wegener's granulomatosis without renal involvement; Z82.49 Family history of ischemic heart disease and other diseases of the circulatory system; Z90.49 Acquired absence of other specified parts of digestive tract

== ENCOUNTER 2018-11-12 11:46 | Observation (INO) | payer MEDICARE, OTHER ==
[2018-11-12 11:52] VITALS: BMI 26.4
--- NOTE | 2018-11-12 12:36 | ED PDOC ---
Arrival/HPI - General Chief Complaint: Abnormal Labs Time Seen by Provider: 11/12/18 11:49 Historian: Patient, Spouse - History of Present Illness Narrative History of Present Illness (Text): 11/12/18 12:19 68 y/o female with PMH of renal disease and breast cancer presents to ED sent by orange picker Dr. French for elevated creatinine. Had a chemo treatment yesterday through her R chest port, where bloodwork was drawn showing the elevated creatinine and BUN. Tolerating PO and having BM per baseline. No changes in urine output. Pt states that she is here to receive dialysis, no physical complaints. Per , had dialysis 4 times during admission earlier this month secondary to ANA. Denies fever, chills, chest pain, SOB, abdominal pain, back pain, N/V/D, urinary symptoms, or any other associated complaints. Past Medical History - Provider Review Nursing Documentation Reviewed: Yes - Infectious Disease Hx of Infectious Diseases: None - Cardiac Hx Cardiac Disorders: No - Pulmonary Hx Respiratory Disorders: Yes (SINUSITIS WITH REMMOVAL OF SINUS POLYPS) - Neurological Hx Neurological Disorder: No - HEENT Hx HEENT Disorder: Yes (SINUSITIS WITH SINUS SX-REMOVAL OF POLYPS) Other/Comment: sinus sx with removal of polyps - Renal Hx Renal Disorder: No - Endocrine/Metabolic Hx Endocrine Disorders: No - Hematological/Oncological Hx Blood Disorders: Yes (wegners disease dx 2 yrs ago) Hx Cancer: Yes (r breast bx 02/2018) Other/Comment: lumpectomy 05/2018 followed by 21 radiation treatments which ended jul 2018 - Integumentary Hx Dermatological Disorder: No - Musculoskeletal/Rheumatological Hx Musculoskeletal Disorders: No - Gastrointestinal Hx Gastrointestinal Disorders: No - Genitourinary/Gynecological Hx Genitourinary Disorders: No - Psychiatric Hx Psychophysiologic Disorder: No Hx Emotional Abuse: No Hx Physical Abuse: No Hx Substance Use: No - Surgical History Hx Appendectomy: Yes (age 9) Other/Comment: hemorrhoid sx when pt was in her 30's, colon polyps removal, sinus sx with removal of polyps 2014, r breast mass bx done 02/26/18 lumpectomy done 05/2018 had 21 radiation treatments which ended 2017, was stage 1, r jug hd cath inserted 10/22/18 - Anesthesia Hx Anesthesia Reactions: No Hx Malignant Hyperthermia: No - Suicidal Assessment Feels Threatened In Home Enviroment: No Family/Social History - Physician Review Nursing Documentation Reviewed: Yes Family/Social History: No Known Family HX Smoking Status: Never Smoked Hx Alcohol Use: No Hx Substance Use: No Allergies/Home Meds Allergies/Adverse Reactions: Allergies Penicillins Allergy (Verified 11/12/18 14:43) RASH Home Medications: Home Meds Medication Instructions Recorded Confirmed Anastrozole [Arimidex 1 mg Tab] 1 mg PO DAILY 11/12/18 11/12/18 Furosemide [Lasix] 40 mg PO DAILY 11/12/18 11/12/18 Losartan Potassium 50 mg PO DAILY 11/12/18 11/12/18 Omeprazole 40 mg PO DAILY 11/12/18 11/12/18 Review of Systems - Physician Review All systems were reviewed & negative as marked: Yes - Review of Systems Constitutional: Normal. absent: Fevers Eyes: Normal. absent: Vision Changes ENT: Normal. absent: Sore Throat, Sinus Congestion Respiratory: Normal. absent: SOB, Cough Cardiovascular: Normal. absent: Chest Pain, Palpitations, Syncope Gastrointestinal: Normal. absent: Abdominal Pain, Stool Changes, Nausea, Vomiting, Appetite Changes Genitourinary Female: Normal. absent: Dysuria, Frequency, Vaginal Bleeding, Vaginal Discharge Musculoskeletal: Normal. absent: Arthralgias, Back Pain, Neck Pain Skin: Normal. absent: Rash Neurological: Normal. absent: Headache, Dizziness Endocrine: Normal Hemo/Lymphatic: Normal Psychiatric: Normal Physical Exam Vital Signs Reviewed: Yes Vital Signs Temp Pulse Resp BP Pulse Ox 11/12/18 11:54 97.7 F 99 H 19 177/82 H 95 Temperature: Afebrile Blood Pressure: Hypertensive Pulse: Regular Respiratory Rate: Normal Appearance: Positive for: Well-Appearing, Non-Toxic, Comfortable Pain Distress: None Mental Status: Positive for: Alert and Oriented X 3 - Systems Exam Head: Present: Atraumatic, Normocephalic Pupils: Present: PERRL Extroacular Muscles: Present: EOMI Conjunctiva: Present: Normal Ears: Present: Normal Mouth: Present: Moist Mucous Membranes Pharnyx: Present: Normal. No: ERYTHEMA, EXUDATE, TONSILS ENLARGED Nose (External): Present: Atraumatic Nose (Internal): Present: Normal Inspection Neck: Present: Normal Range of Motion. No: Meningeal Signs, MIDLINE TENDERNESS, Paraspinal Tenderness Respiratory/Chest: Present: Clear to Auscultation, Good Air Exchange. No: Respiratory Distress, Accessory Muscle Use Cardiovascular: Present: Regular Rate and Rhythm, Normal S1, S2, Peripheal Pulses Present. No: Murmurs Abdomen: Present: Normal Bowel Sounds. No: Tenderness, Distention, Peritoneal Signs, Rebound, Guarding Back: Present: Normal Inspection. No: CVA Tenderness, Paraspinal Tenderness Upper Extremity: Present: Normal Inspection, Normal ROM, NORMAL PULSES, Neurovascularly Intact, Capillary Refill < 2s. No: Cyanosis, Edema, Temperature Abnormalties Lower Extremity: Present: Normal Inspection, NORMAL PULSES, Normal ROM, Neurovascularly Intact, Capillary Refill < 2 s. No: Edema, Temperature Abnormalties Neurological: Present: GCS=15, CN II-XII Intact, Speech Normal, Motor Func Grossly Intact, Normal Sensory Function, Gait Normal Skin: Present: Warm, Dry, Normal Color. No: Rashes Lymphatic: No: Cervical Adenopathy Psychiatric: Present: Alert, Oriented x 3, Normal Insight, Normal Concentration. No: Normal Affect, Normal Mood Medical Decision Making ED Course and Treatment: Initial Plan: * CBC, CMP * Coags * Urine * Consult nephrology * Contact PMD CBC unremarkable for acute changes. Stable anemia. Urine shows protein CMP shows creatinine 6.1 BUN 140 Ca 7.5 EKG shows no change from prior [address] French, who states patient needs dialysis both this afternoon and tomorrow morning based on most recent bloodwork. [address] Colon, who accepts patient for inpatient observation for inpatient dialysis. Patient aware of change in disposition. Resting comfortably in stretcher with stable vital signs at time. Disposition/Present on Arrival - Present on Arrival Any Indicators Present on Arrival: No History of DVT/PE: No History of Uncontrolled Diabetes: No Urinary Catheter: No History of Decub. Ulcer: No History Surgical Site Infection Following: None - Disposition Have Diagnosis and Disposition been Completed?: Yes Diagnosis: Acute kidney injury Disposition: HOSPITALIZED Disposition Time: 12:55 Patient Plan: Admission Condition: STABLE
[2018-11-12 12:51] LABS: GRAN # 8.57 (1.4-6.5); GRAN % 92.8 % (50.0-68.0); HEMOGLOBIN 10.3 g/dL (12.0-16.0); LYMPH # 0.6 (1.2-3.4); LYMPH % 6.6 % (22.0-35.0); MEAN CELL VOLUME 90.5 fl (80.0-105.0); MEAN CORPUSCULAR HEMOGLOBIN 30.7 pg (25.0-35.0); MEAN CORPUSCULAR HGB CONC 33.9 g/dl (31.0-37.0); MEAN PLATELET VOLUME 10.9 fl (7.0-11.0); MONO # 0.1 (0.1-0.6); MONO % 0.6 % (1.0-6.0); PLATELET COUNT 90 10^3/uL (120.0-450.0); RBC 3.36 10^6/uL (3.5-6.1); RED CELL DISTRIBUTION WIDTH 18.7 % (11.5-14.5); URINE BILIRUBIN NEGATIVE (NEGATIVE); URINE BLOOD TRACE-INTACT (NEGATIVE); URINE GLUCOSE (UA) 100 mg/dL (NEGATIVE); URINE LEUKOCYTE ESTERASE SMALL Leu/uL (NEGATIVE); URINE PROTEIN 100 mg/dL (<30 mg/dL); URINE UROBILINOGEN 0.2 E.U./dL (<1 E.U./dL); WHITE BLOOD COUNT 9.2 10^3/uL (4.5-11.0)
[2018-11-12 12:52] LABS: URINE APPEARANCE SL CLOUDY (CLEAR); URINE COLOR LIGHT YELLOW (YELLOW)
[2018-11-12 13:00] LABS: INR 0.91; PARTIAL THROMBOPLASTIN TIME 24.6 Seconds (26.9-38.3); PROTHROMBIN TIME 10.3 SECONDS (9.4-12.5)
[2018-11-12 13:01] LABS: URINE WBC 25 - 30 /hpf (0-6)
[2018-11-12 13:02] LABS: URINE BACTERIA FEW /hpf
[2018-11-12 13:26] LABS: LYMPHOCYTE 2 % (22.0-35.0); MONOCYTE 6 % (1.0-6.0); NEUTROPHIL 92 % (50.0-70.0)
[2018-11-12 13:27] LABS: PLATELET ESTIMATE LOW (NORMAL)
[2018-11-12] MEDS ORDERED: Tmp-Smz 800 mg-160 mg DS Tab PO STA (14:13)
[2018-11-12 14:39] LABS: ALB/GLOB RATIO 1.3 (1.1-1.8); ALBUMIN 2.9 g/dL (3.0-4.8); CALCIUM 7.5 mg/dL (8.4-10.5)
[2018-11-12] MEDS ORDERED: Tmp-Smz 800 mg-160 mg DS Tab PO SCH (18:45)
[2018-11-12] MEDS ORDERED: Pneumococcal 23-Valent Vaccine IM ONE (20:24)
[2018-11-12] MEDS ORDERED: Influenza Vaccine 60 mcg/0.5 mL SYR (4YR UP) IM ONE (20:24)
[2018-11-12] MEDS ORDERED: Miconazole 2% Vaginal Cream(45 gm) VG SCH (22:00)
--- NOTE | 2018-11-12 22:43 | CON ---
DATE OF CONSULTATION: 11/12/2018 REASON FOR CONSULTATION: Advanced renal insufficiency, hypertension, shortness of breath. HISTORY OF PRESENT ILLNESS: The patient is a 68-year-old lady known to me from outpatient followup. The patient was recently admitted to [facility] with acute kidney injury. She had a kidney biopsy done that showed a relapse of her pauci-immune crescentic glomerulonephritis. The patient received dialysis during that admission. The patient was treated with IV steroids. Subsequently, she was transitioned to p.o. steroids. She also got 1 g of Cytoxan. As an outpatient, she got rituximab once a week x2 doses so far. Her renal parameters have progressively worsened. There is currently no sign of improvement. The patient was also having some shortness of breath. She was having increasing lower extremity edema. Hence, the patient was advised to come to the emergency room for dialysis treatment. In the emergency room, she was found to have a blood pressure of 177/88. Her hemoglobin is 10.3. Her chemistry is still pending. Her chemistry from yesterday showed a BUN of 148 and a creatinine of 6.5. PAST MEDICAL AND SURGICAL HISTORY: Hypertension, acute rapidly progressive glomerulonephritis in 2016. The patient was treated with IV steroids. She had plasmapheresis. She received rituximab x3 doses. She had an extremely good response. Her renal parameters are improved. She had recovery. She was in remission for almost a year and then now she had a relapse again. She was again treated with dialysis, plasmapheresis, IV steroids, Cytoxan. Rituximab x2 doses she has received. Last dose was given yesterday. Anemia, breast cancer. . FAMILY HISTORY: Noncontributory. SOCIAL HISTORY: No smoking, no alcohol use, no IV drug use. MEDICATIONS AT HOME: Lasix 40 mg daily; prednisone 30 b.i.d.; hydralazine 25 b.i.d.; Bactrim Saturday, Saturday, and Saturday; Protonix 40 mg daily. ALLERGIES: PENICILLIN. REVIEW OF SYSTEMS: Dyspnea on exertion, lower extremity edema, no chest pain, no nausea, vomiting or diarrhea. PHYSICAL EXAMINATION: GENERAL: Elderly lady lying in bed. VITAL SIGNS: Blood pressure 177/82, heart rate 99, respiratory rate 19, temperature 97.7. HEENT: Normocephalic, atraumatic, positive pallor. NECK: Supple, no JVD. LUNGS: Bilateral equal air entry, bilateral rhonchi, no rales. CARDIAC: S1 and S2, regular rate and rhythm, no murmur, no rub. ABDOMEN: Obese, distended, soft, nontender, bowel sounds present. EXTREMITIES: 2+ pitting edema of the lower extremities. LABORATORY DATA: Hemoglobin 10.3. Urinalysis: Light yellow, slightly cloudy, pH 6.0, specific gravity 1.025, protein 100, glucose 100, leukocyte esterase small, rbc's 5-10, wbc's 25-30. INR 0.9. ASSESSMENT: 1. Recurrence of pauci-immune glomerulonephritis, with poor response to treatment so far. 2. Acute kidney injury. 3. Severe hypertension. 4. Anemia. 5. Edema/shortness of breath. PLAN: 1. Dialysis today. 2. Will likely need chronic dialysis. 3. Continue prednisone 30 b.i.d. 4. Continue Bactrim Saturday, Saturday, Saturday. 5. Continue Protonix. Case management and social welfare research worker referral for arrangement of outpatient hemodialysis. Monserrat French MD
--- NOTE | 2018-11-12 22:57 | CARD ---
APPROVED REPORT Date of service: 11/12/2018 EKG Measurement Heart [id number] <Conclusion> Normal sinus rhythm Normal ECG
[2018-11-13 08:06] VITALS: RESP 20; O2SAT 95
[2018-11-13] MEDS ORDERED: Tmp-Smz 400 mg-80 mg SS Tab PO SCH (10:00)
[2018-11-13 11:38] LABS: GRAN # 8.28 (1.4-6.5); GRAN % 89.6 % (50.0-68.0); HEMOGLOBIN 10.5 g/dL (12.0-16.0); LYMPH # 0.9 (1.2-3.4); LYMPH % 9.3 % (22.0-35.0); MEAN CELL VOLUME 89.6 fl (80.0-105.0); MEAN CORPUSCULAR HEMOGLOBIN 30.4 pg (25.0-35.0); MEAN PLATELET VOLUME 10.2 fl (7.0-11.0); MONO # 0.1 (0.1-0.6); MONO % 1.1 % (1.0-6.0); RBC 3.45 10^6/uL (3.5-6.1); RED CELL DISTRIBUTION WIDTH 18.4 % (11.5-14.5); WHITE BLOOD COUNT 9.2 10^3/uL (4.5-11.0)
[2018-11-13 12:00] LABS: ALB/GLOB RATIO 1.3 (1.1-1.8); ALBUMIN 3.2 g/dL (3.0-4.8); CALCIUM 7.9 mg/dL (8.4-10.5)
[2018-11-13] MEDS ORDERED: Potassium Chloride 20 mEq ER Tab PO ONE (12:25)
--- NOTE | 2018-11-13 15:31 | CP.PCM.PCO ---
Physician Communication Note - Physician Communication Note Physician Communication Note: patient cleared from nephro, for DC,awaiting arrangement new HD ctr
[2018-11-13 16:51] VITALS: BP 171/83; PULSE 91; TEMP 98.1
--- NOTE | 2018-11-13 17:37 | PN ---
DATE: 11/13/2018 SUBJECTIVE: The patient is seen lying in bed. She had dialysis again this morning. She feels much better. She looks much less swollen. She denies any nausea or vomiting. She complains of some vaginal burning and some dysuria. PHYSICAL EXAMINATION: GENERAL: Elderly lady sitting in bed. VITAL SIGNS: Blood pressure 186/81, heart rate 80, respiratory rate 20, temperature 97.9. HEENT: Normocephalic, atraumatic, positive pallor. NECK: Supple, no JVD. LUNGS: Bilateral equal entry, bilaterally equal expansion, no rales. CARDIAC: S1, S2, regular rate and rhythm, no murmur, no rub. ABDOMEN: Soft, nondistended, nontender, bowel sounds present. EXTREMITIES: 1+ pitting edema of the lower extremities. INTAKE AND OUTPUT: Not charted. LABORATORY DATA: WBC 9, hemoglobin 10.5, hematocrit 31, platelets 83. Sodium 134, potassium 2.9, chloride 97, CO2 of 31, BUN 27, creatinine 1.6. Glucose 90. Calcium 7.9, albumin 3.2. Corrected calcium of 8.4. CURRENT MEDICATIONS: Ambien, hydralazine 25 t.i.d., Bactrim, losartan 50 daily, potassium 20 mEq daily, Lasix 40 daily, prednisone 30 b.i.d. ASSESSMENT AND PLAN: 1. Acute kidney injury, relapse of pauci-immune glomerulonephritis. 2. Severe hypertension. 3. Anemia. 4. Hypocalcemia. 5.. Dysuria. PLAN: 1. The patient received dialysis yesterday and today. For the time being she will need dialysis three times a week. 2. The patient is being treated for her rapidly progressing GN, she has received high-dose IV steroids, plasmapheresis, Cytoxan. She is still getting p.o. prednisone and with rituximab. 3. Will need close outpatient followup. 4. The patient will receive dialysis in [facility] where she lives, but she will continue to follow up with me in my office. 5. Case discussed with case management, nursing staff at length. Case discussed with patient and at bedside. Monserrat French MD [facility] # [id number]
[2018-11-14] MEDS ORDERED: Potassium Chloride 20 mEq ER Tab PO SCH (08:00)
== END 2018-11-13 18:24 | disposition home or self-care (01) ==
LOC: ED 11:46 → ERH 12:55 → 3RNO 17:34
PROVIDERS: ADMIT Internal Medicine; ATTEND Internal Medicine
DX: N05.7 Unspecified nephritic syndrome with diffuse crescentic glomerulonephritis (principal); N17.9 Acute kidney failure, unspecified; I10 Essential (primary) hypertension; D64.9 Anemia, unspecified; E83.51 Hypocalcemia; Z85.3 Personal history of malignant neoplasm of breast
CPT/HCPCS: 36415; 80053; 81001; 84100; 85025; 85610; 85730; 87086; 93005; 99283; G0378

== ENCOUNTER 2018-12-27 11:45 | Inpatient (IN) | payer MEDICARE, OTHER ==
--- NOTE | 2018-12-27 13:09 | ED PDOC ---
Arrival/HPI - General Chief Complaint: Altered Mental Status Time Seen by Provider: 12/27/18 11:50 Historian: Patient, Spouse () - History of Present Illness Narrative History of Present Illness (Text): 12/27/18 11:50 Pt is a 68 year old female, with past medical history of renal disease, breast cancer, and hypertension, brought to the emergency department by her who complains of altered mental status since 3 days ago. Patient's states she "doesn't know where she is". Patient's informs no chest pain or headaches prior to altered mental status. Patient denies headache or chest pain currently in emergency department. Per , patient stopped eating and drinking fluids. Patient's last dialysis was today. Per , patient did not take anti-hypertensive medicine today. Patient denies any fevers, chills, dizziness, shortness of breath, dyspnea on exertion, cough, abdominal pain, nausea, vomiting, diarrhea, back pain, neck pain, or any other complaint. Time/Duration: < week (3 days ago) Symptom Course: Unchanged Activities at Onset: Light Context: Home Past Medical History - Provider Review Nursing Documentation Reviewed: Yes - Infectious Disease Hx of Infectious Diseases: None - Reproductive Menopause: Yes - Cardiac Hx Cardiac Disorders: No Hx Hypertension: Yes - Pulmonary Hx Respiratory Disorders: Yes (SINUSITIS WITH REMMOVAL OF SINUS POLYPS) - Neurological Hx Neurological Disorder: No - HEENT Hx HEENT Disorder: Yes (SINUSITIS WITH SINUS SX-REMOVAL OF POLYPS) Other/Comment: sinus sx with removal of polyps - Renal Hx Renal Disorder: No Hx Dialysis: Yes Other/Comment: . and sat. - Endocrine/Metabolic Hx Endocrine Disorders: No - Hematological/Oncological Hx Blood Disorders: Yes (wegners disease dx 2 yrs ago) Hx Cancer: Yes (r breast bx 02/2018) Other/Comment: lumpectomy 05/2018 followed by 21 radiation treatments which ended jul 2018 - Integumentary Hx Dermatological Disorder: No - Musculoskeletal/Rheumatological Hx Musculoskeletal Disorders: No - Gastrointestinal Hx Gastrointestinal Disorders: No - Genitourinary/Gynecological Hx Genitourinary Disorders: No - Psychiatric Hx Psychophysiologic Disorder: No Hx Substance Use: No - Surgical History Hx Appendectomy: Yes (age 9) Other/Comment: hemorrhoid sx when pt was in her 30's, colon polyps removal, sinus sx with removal of polyps 2014, r breast mass bx done 02/26/18 lumpectomy done 05/2018 had 21 radiation treatments which ended 2017, was stage 1, r jug hd cath inserted 10/22/18 - Anesthesia Hx Anesthesia Reactions: No Hx Malignant Hyperthermia: No - Suicidal Assessment Feels Threatened In Home Enviroment: No Family/Social History - Physician Review Nursing Documentation Reviewed: Yes Family/Social History: No Known Family HX Smoking Status: Never Smoked Hx Alcohol Use: No Hx Substance Use: No Allergies/Home Meds Allergies/Adverse Reactions: Allergies Penicillins Allergy (Verified 11/12/18 14:43) RASH Home Medications: Home Meds Medication Instructions Recorded Confirmed Anastrozole [Arimidex 1 mg Tab] 1 mg PO DAILY 11/12/18 11/12/18 Furosemide [Lasix] 40 mg PO DAILY 11/12/18 11/12/18 Losartan Potassium 50 mg PO DAILY 11/12/18 11/12/18 Omeprazole 40 mg PO DAILY 11/12/18 11/12/18 Review of Systems - Physician Review All systems were reviewed & negative as marked: Yes - Review of Systems Constitutional: Other (altered mental status) Respiratory: absent: SOB, Cough Cardiovascular: absent: Chest Pain, MAST Gastrointestinal: absent: Abdominal Pain, Diarrhea, Nausea, Vomiting Musculoskeletal: absent: Back Pain, Neck Pain Neurological: absent: Headache, Dizziness Physical Exam - Physical Exam Narrative Physical Exam (Text): 12/27/18 11:50 Gen: VS reviewed, awake and alert, well developed, well nourished, nontoxic, mild distress. ENT: normal pharynx. Eye: EOMI, PERRL. Neck: no JVD, supple, no adenopathy. CV: regular rate, regular rhythm, no rubs, no murmur, no gallops, S1, S2, pulses equal and strong. Pulm: no distress, clear to auscultation, no wheeze, no rhonchi, breath sounds equal, no rales. Abd: soft, nontender, no guarding, no rebound, no rigidity, normal bowel sounds. Ext: no edema. Skin: good color, no rash, no cyanosis. Psych: responds appropriately to questions, normal affect. Neuro: disoriented to time and situation, asterixis. Nonfocal neurological exam. motor intact, sensation intact. Vital Signs Reviewed: Yes Vital Signs Temp Pulse Resp BP Pulse Ox 12/27/18 11:46 99.4 F 86 18 177/77 H 95 Temperature: Afebrile Blood Pressure: Hypertensive Pulse: Regular Respiratory Rate: Normal Appearance: Positive for: Well-Appearing, Non-Toxic, Comfortable Pain Distress: None Mental Status: Positive for: Alert and Oriented X 3 Medical Decision Making ED Course and Treatment: 12/27/18 15:[address] anderson. patient to be admitted for altered mentation, rule out sepsis. potential infectious source including but not limited to bacteremia including dialysis catheter site, possible pneumonia as evidenced by nonsdescript infiltate on cxr.patient does not have photohobia or meningismus to suggest an overt possibility of meningitis. cultures were taken and patient started on empiric iv abx. patient does not qualify for sepsis at this time. 12/27/18 18:12 - RAD Interpretation Narrative RAD Interpretations (Text): 12/27/18 13:25 Chest X-Ray shows: FINDINGS: LUNGS: Limited patchy atelectasis or infiltrate seen the left base with none on the right. PLEURA: Small pleural effusion present. None is seen the right. No pneumothorax bilaterally. CARDIOVASCULAR: No aortic atherosclerotic calcification present. Normal cardiac size. Interval right central venous dialysis catheter apparently inserted by tunneled right internal jugular approach with tips terminating at the right atrium. No pulmonary vascular congestion. OSSEOUS STRUCTURES: No significant abnormalities. VISUALIZED UPPER ABDOMEN: Normal. OTHER FINDINGS: None. IMPRESSION: Density at the left base suggest small pleural effusion with underlying atelectasis or infiltrate not excluded. Interval permanent right right dialysis catheter inserted as discussed above. Radiology Orders: 12/27/18 12:53 CHEST PORTABLE [RAD] Stat 12/27/18 12:55 HEAD W/O CONTRAST [CT] Stat Nitriles Lab Technician: Radiologist - EKG Interpretation EKG Interpretation (Text): 12/27/18 13:15 1313: sinus rhythm at 87 bpm, nml qrs, nml axis, no acute sttw abn Interpreted by ED Physician: Yes Procedures - Additional Procedures Progress: VENIPUNCTURE NECESSITATING PHYSICIAN SKILL: a 20g IV was placed in the left AC, good draw and flush, US guided, tolerated procedure well. - Scribe Statement The provider has reviewed the documentation as recorded by the Scribe Dimitry Munafo All medical record entries made by the Scribdannie were at my direction and personally dictated by me. I have reviewed the chart and agree that the record accurately reflects my personal performance of the history, physical exam, medical decision making, and the department course for this patient. I have also personally directed, reviewed, and agree with the discharge instructions and disposition. Disposition/Present on Arrival - Present on Arrival Any Indicators Present on Arrival: No History of DVT/PE: No History of Uncontrolled Diabetes: No Urinary Catheter: No History of Decub. Ulcer: No History Surgical Site Infection Following: None - Disposition Have Diagnosis and Disposition been Completed?: Yes Diagnosis: Fever, Altered mental state Disposition: HOSPITALIZED Disposition Time: 15:57 Patient Plan: Admission Condition: GUARDED
--- NOTE | 2018-12-27 13:29 | RAD ---
Date of service: 12/27/2018 HISTORY: pneumonia COMPARISON: Chest radiograph 10/22/2018. FINDINGS: LUNGS: Limited patchy atelectasis or infiltrate seen the left base with none on the right. PLEURA: Small pleural effusion present. None is seen the right. No pneumothorax bilaterally. CARDIOVASCULAR: No aortic atherosclerotic calcification present. Normal cardiac size. Interval right central venous dialysis catheter apparently inserted by tunneled right internal jugular approach with tips terminating at the right atrium. No pulmonary vascular congestion. OSSEOUS STRUCTURES: No significant abnormalities. VISUALIZED UPPER ABDOMEN: Normal. OTHER FINDINGS: None. IMPRESSION: Density at the left base suggest small pleural effusion with underlying atelectasis or infiltrate not excluded. Interval permanent right right dialysis catheter inserted as discussed above.
[2018-12-27 13:57] LABS: HEMOGLOBIN 7.9 g/dL (12.0-16.0); LYMPH # 0.6 (1.2-3.4); MEAN CELL VOLUME 98.4 fl (80.0-105.0); MEAN CORPUSCULAR HEMOGLOBIN 32.1 pg (25.0-35.0); MEAN CORPUSCULAR HGB CONC 32.6 g/dl (31.0-37.0); MEAN PLATELET VOLUME 10.8 fl (7.0-11.0); MONO # 0.2 (0.1-0.6); PLATELET COUNT 109 10^3/uL (120.0-450.0); RBC 2.46 10^6/uL (3.5-6.1); RED CELL DISTRIBUTION WIDTH 20.8 % (11.5-14.5); WHITE BLOOD COUNT 9.6 10^3/uL (4.5-11.0)
[2018-12-27 13:58] LABS: VENOUS BLOOD GAS PO2 180 mm/Hg (30-55); VENOUS BLOOD PH 7.61 (7.32-7.43)
[2018-12-27 14:11] LABS: CALCIUM 8.1 mg/dL (8.4-10.5)
[2018-12-27 14:30] LABS: ALB/GLOB RATIO 1.2 (1.1-1.8)
[2018-12-27 14:33] LABS: LYMPHOCYTE 8 % (22.0-35.0); MONOCYTE 2 % (1.0-6.0); NEUTROPHIL 90 % (50.0-70.0)
[2018-12-27 14:34] LABS: ANISOCYTOSIS 1+; HYPOCHROMIA 1+; OVALOCYTES SLIGHT; PLATELET ESTIMATE SL. DEC (NORMAL)
--- NOTE | 2018-12-27 15:09 | CT ---
Date of service: 12/27/2018 PROCEDURE: CT HEAD WITHOUT CONTRAST. HISTORY: altered mentation COMPARISON: None available. TECHNIQUE: Axial computed tomography images were obtained through the head/brain without intravenous contrast. Radiation dose: Total exam DLP = 1871.03 mGy-cm. This CT exam was performed using one or more of the following dose reduction techniques: Automated exposure control, adjustment of the mA and/or kV according to patient size, and/or use of iterative reconstruction technique. FINDINGS: HEMORRHAGE: No intracranial hemorrhage. BRAIN: Good corticomedullary differentiation is seen. Proportional, diffuse expansion of the ventriculosulcal and cisternal spaces is appreciated with white matter lucency compatible with diffuse cerebral atrophy and chronic microangiopathy. No suspicious extra-axial fluid collection is identified and the midline brain anatomy appears grossly nonfocal as imaged. There is no mass effect throughout. VENTRICLES: Unremarkable. No hydrocephalus. CALVARIUM: Unremarkable. PARANASAL SINUSES: Multifocal sinusitis bilateral ethmoid and maxillary sinuses. MASTOID AIR CELLS: Unremarkable as visualized. No inflammatory changes. OTHER FINDINGS: None. IMPRESSION: Age-appropriate age related neuro degenerative findings are appreciate without definite acute intracranial pattern by standard CT criteria. Follow-up CT or MRI are available if clinically warranted. Incidental sinusitis as discussed above.
[2018-12-27] MEDS ORDERED: Vancomycin 500 mg Inj IVPB STA (15:24)
[2018-12-27] MEDS ORDERED: Piperacillin/Tazobact 3.375 gm 100 ML IVPB STA (15:28)
[2018-12-27] MEDS ORDERED: Vancomycin 1gm in NS 250ml 1 GM/250 ML BAG IVPB ONE (15:45)
[2018-12-27] MEDS ORDERED: Aztreonam 1 Gm in NS 100mL 100 ML IVPB STA (15:53)
[2018-12-27] MEDS: levoFLOXacin 250 mg in D5W 250 MG/50 ML BAG IVPB SCH (21:06)
--- NOTE | 2018-12-27 21:11 | CARD ---
APPROVED REPORT Date of service: 12/27/2018 EKG Measurement Heart [id number] <Conclusion> Poor data quality, interpretation may be adversely affected Normal sinus rhythm Normal ECG
[2018-12-27 22:33] VITALS: BMI 23.7
[2018-12-27] MEDS ORDERED: Pneumococcal 23-Valent Vaccine IM ONE (22:33)
[2018-12-27] MEDS ORDERED: Influenza Vaccine 60 mcg/0.5 mL SYR (4YR UP) IM ONE (22:33)
[2018-12-27 22:44] LABS: PH,URINE 8.5 (4.7-8.0); URINE BILIRUBIN NEGATIVE (NEGATIVE); URINE BLOOD TRACE-LYSED (NEGATIVE); URINE GLUCOSE (UA) NEGATIVE (NEGATIVE); URINE LEUKOCYTE ESTERASE TRACE Leu/uL (NEGATIVE); URINE PROTEIN 100 mg/dL (<30 mg/dL); URINE UROBILINOGEN 0.2 E.U./dL (<1 E.U./dL)
[2018-12-27 23:00] LABS: URINE APPEARANCE SL CLOUDY (CLEAR); URINE COLOR YELLOW (YELLOW)
[2018-12-27 23:32] LABS: URINE BACTERIA MOD /hpf
--- NOTE | 2018-12-28 00:24 | CP.PCM.PCO ---
Addendum Addendum: 12/28/18 00:21 PGY1 House Doctor: Received page regarding Patient's IV access infiltrated. Per Nurse, she called Dr. Webb regarding next step; requested for midline order. Order placed, however unable to obtain midline access overnight. Per nurse, she was able to place a # 24 gauge for access.
[2018-12-28 08:24] LABS: BASO # 0.01 K/mm3 (0.0-2.0); BASO % 0.1 % (0.0-3.0); HEMOGLOBIN 9.7 g/dL (12.0-16.0); LYMPH # 1.2 (1.2-3.4); LYMPH % 9.3 % (22.0-35.0); MEAN CELL VOLUME 95.8 fl (80.0-105.0); MEAN CORPUSCULAR HEMOGLOBIN 31.2 pg (25.0-35.0); MEAN CORPUSCULAR HGB CONC 32.6 g/dl (31.0-37.0); MEAN PLATELET VOLUME 10.8 fl (7.0-11.0); MONO # 0.2 (0.1-0.6); MONO % 1.5 % (1.0-6.0); RBC 3.11 10^6/uL (3.5-6.1); RED CELL DISTRIBUTION WIDTH 21.6 % (11.5-14.5); WHITE BLOOD COUNT 12.5 10^3/uL (4.5-11.0)
[2018-12-28 08:38] LABS: IRON 133 ug/dL (45-180)
[2018-12-28 08:47] LABS: % IRON SATURATION 71 % (20-55); ALB/GLOB RATIO 1.3 (1.1-1.8); ALBUMIN 3.1 g/dL (3.0-4.8); CALCIUM 8.1 mg/dL (8.4-10.5); TOTAL IRON BINDING CAPACITY 188 ug/dL (265-497)
[2018-12-28 08:54] LABS: FREE T4 1.35 ng/dL (0.78-2.19)
[2018-12-28] MEDS: levoFLOXacin 250 mg in D5W 250 MG/50 ML BAG IVPB SCH (09:10)
[2018-12-28] MEDS: MEROPENEM 500 MG in NS 500 MG/50 ML BAG IVPB SCH ×3 (09:10→21:25)
[2018-12-28 13:02] LABS: FOLATE 18.6 ng/mL
[2018-12-28] MEDS ORDERED: levoFLOXacin 250 mg in D5W 250 MG/50 ML BAG IVPB SCH (15:51)
--- NOTE | 2018-12-28 16:07 | PN ---
DATE: 12/28/2018 SUBJECTIVE: The patient was seen this Saturday morning in room 363, bed 1 with her at the bedside. There is marked clinical improvement in her mental status since last seen some 18 or 20 hours ago. She is more awake, more alert, more talkative, recognizes me, still rather lethargic and obtunded far from her baseline mental status. OBJECTIVE: LUNGS: Show good aeration right and left. HEART: Regular, borderline tachycardic. EXTREMITIES: Edema has resolved completely. There is no edema present at this time. IMPRESSION: 1. Altered mental status, suspect related to infection. 2. Infection with fever. Blood cultures pending, possible infiltrate on chest x-ray. 3. Volume overload. 4. Anemia improved after only 1 unit of packed red cells transfused and Lasix given making her euvolemic and bringing the hemoglobin from 7.9 up to 9.6. PLAN: Continue IV antibiotics, await cultures, we will order a followup chest x-ray for tomorrow. Blood pressure is still running high, so we will add amlodipine for her current pressure of 180/79 unless she come down a bit after having been given a dose of IV Lasix. Since she now nearing euvolemia with no leg edema, we will decrease the Lasix to 40 mg p.o. daily and then perhaps even further. Most importantly await the results of cultures. If tomorrow mental status still seems abnormal, patient is obtunded or off from her baseline, we would proceed with MRI, although I doubt neurologic etiology to altered mental state most likely related to infection and metabolic causes. Simon Webb MD [facility]
--- NOTE | 2018-12-28 19:54 | CON ---
DATE OF CONSULTATION: 12/28/2018 CHIEF COMPLAINT: Change in mental status times several days. HISTORY OF PRESENT ILLNESS: This is a 68-year-old female with breast cancer with renal disease, hypertension, history of sinusitis, history of Daphnie's disease, who is admitted with a change in mental status. The patient had a fever. Infectious Disease consultation requested. The patient at this time is confused, unable to give any information. Information is gathered from the nurses caring for the patient and chart. REVIEW OF SYSTEMS: Revealed 12-point review systems performed. PAST MEDICAL HISTORY: Significant for breast cancer, renal disease, hypertension, sinusitis, Daphnie's, and a recent hospitalization. PAST SURGICAL HISTORY: Significant for lumpectomy in 05/2018 with radiation, also appendectomy. ALLERGIES: THE PATIENT IS ALLERGIC TO PENICILLIN, SHE DEVELOPS A RASH. MEDICATIONS: Medications at home revealed the patient to be on prednisone 30 mg p.o. b.i.d.; Bactrim on Saturday, Saturday, and Saturday; losartan; furosemide; anastrozole; and hydralazine. PHYSICAL EXAMINATION: GENERAL: The patient is in bed, appearing chronically ill. VITAL SIGNS: Temperature of 101.2 yesterday, which is the T-max; a heart rate of 98; blood pressure is 190/90; respiratory rate of 20. HEENT: Examination of HEENT is unremarkable. NECK: Supple. LUNGS: Have decreased breath sounds. HEART: Normal S1, S2. ABDOMEN: Soft, nontender. LABORATORY DATA: Laboratory examination reveals the patient has a white count of 12,500, hemoglobin of 9, platelets of 110. Coagulation is noted. Chemistries revealed a creatinine of 1.9, it went up to 3.1, it was in October 1.6 and prior to that it was 5.1 and as high as 10 creatinine. Urinalysis is noted. Influenza is negative. Microbiology is pending. The patient had a chest x-ray, which is positive for left infiltrates. The CT scan of the head, which is negative, and the emergency room chart is reviewed. ASSESSMENT AND PLAIN: A 68-year-old female with breast cancer, renal disease, hypertension, Daphnie's sinusitis, admitted with a fever of 101, tachycardia, positive infiltrates. 1. Sepsis with healthcare-associated pneumonia in the left lower lobe, but the patient does have a right leg coin-sized erythema, appears chronic, and the patient also has a new right chest wall dialysis catheter. At this time, we will check on the blood cultures, urine cultures, sputum cultures, and MRSA screen. We will check on a procalcitonin and start the patient on Levaquin, and the patient was already given a dose of vancomycin. We will also give meropenem. We will check urine for Legionella antigen and a procalcitonin. We will make further recommendations pending initial response. Ramana Haywood MD
--- NOTE | 2018-12-28 21:06 | CON ---
DATE OF CONSULTATION: 12/28/2018 NEPHROLOGY CONSULTATION Covering for Dr. French. 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 Nephrology is being consulted for renal failure. History obtained mainly from ; reports that for 3 days prior to presentation the patient has not been herself; has not been disoriented, not making much sense when speaking; has had decreased appetite; therefore, the patient did go to outpatient dialysis on and Saturday, but was noted by staff to have near change in mental status; the patient was ambulatory; she otherwise denies any fevers or chills, although T-max of 101.2 yesterday; the patient's mental status has improved since yesterday with patient able to appropriately verbalize; denies any sore throat, sinus pain, cough; denies any headaches or neck pain; denies any arthralgias; denies any dysuria; the patient was seen by ENT recently a few weeks ago as a precautionary measure and had sinus cultures taken, subsequently was given a course of p.o. antibiotics; the patient in ED was given IV antibiotics with 1 g of vancomycin and 1 g of Azactam; was not placed on any IV fluids as blood pressure was high. PAST MEDICAL HISTORY: As above. 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 FAMILY HISTORY: Noncontributory. SOCIAL HISTORY No tobacco use. REVIEW OF SYSTEMS: CONSTITUTIONAL: As per HPI. HEENT: As per HPI. Denies any dysphagia. No odynophagia. RESPIRATORY: Denies any cough. No dyspnea. CARDIOVASCULAR: No chest pain or palpitations. GI: No nausea, vomiting or diarrhea. : No dysuria. MUSCULOSKELETAL: No arthralgias or back pain. NEURO: Has been having tremors related to being on steroids SKIN: No rashes. PHYSICAL EXAMINATION: VITAL SIGNS: This afternoon, blood pressure 188/77, heart rate 82, respirations 19, temperature 101.0, O2 sat 92% on room air. GENERAL: No distress. Conversing coherently in full sentences. HEENT: Moist mucous membranes. Nonicteric. No cervical lymphadenopathy. RESPIRATORY: Lungs clear to auscultation bilaterally. No rales, no rhonchi, no wheezes. CARDIOVASCULAR: Heart sounds S1 and S2 normal. No murmurs, no gallops, no rubs. GI: Abdomen soft, nontender, nondistended. : No bladder distention. EXTREMITIES: Mild bilateral lower leg edema. SKIN: Warm. No cyanosis. NEURO: Tremor of the outstretched hands. PSYCHIATRIC: Normal mood, not agitated. LABORATORY DATA: CBC: WBC 12.5, hemoglobin 9.7, hematocrit 29.8, platelets 110,000. Chemistry panel: Sodium 132, potassium 3.6, chloride 96, bicarb 29, BUN 35, creatinine 3.1, calcium 8.1, glucose 87, AST 37, ALT 52, albumin 3.1. Procalcitonin 2.81. UA 100 mg/dL protein, trace blood, moderate bacteria, 1-3 rbc's, 2-5 wbc's per high-powered field. Blood cultures, no growth after 24 hours. Chest x-ray directly visualized showing left base opacity. ASSESSMENT/PLAN: 1. Acute renal failure with recurrence of pauci-immune crescentic glomerulonephritis, currently dialysis dependent; relatively stable electrolyte status. No overt signs of volume excess on exam. Continue p.o. prednisone 30 mg b.i.d. Continue PCP prophylaxis with Bactrim three times per week. Follow up with Hematology regarding Rituxan dosing. Hemodialysis treatment for Saturday per routine. 2. Hypertensive urgency. Blood pressure currently uncontrolled. The patient currently on hydralazine 50 mg p.o. b.i.d., losartan 50 mg daily and metoprolol 50 mg b.i.d. Lasix changed to IV 40 mg daily. We will increase losartan to 100 mg daily. Continue with rest of meds. 3. Anemia, likely secondary to renal failure, status post 1 unit PRBC yesterday with appropriate rise in hemoglobin. Will defer to Hematology regarding Aranesp dosing. 4. Sepsis. Currently started on meropenem 500 mg every 12 hours and Levaquin 250 mg every other day; awaiting urine cultures. Follow up with ID. Thank you for allowing us to participate in the care of the patient. Dr. French will resume care from tomorrow. Dennis Lorenzo MD
--- NOTE | 2018-12-29 03:09 | CP.PCM.PCO ---
<London Matos - Last Filed: 12/29/18 03:10> Physician Communication Note - Physician Communication Note Physician Communication Note: Paged by nurse for elevated blood pressure and 6 beats of vtach <Darian Lemon - Last Filed: 12/29/18 03:23> Attending/Attestation - Attestation I have personally seen and examined this patient.: Yes I have fully participated in the care of the patient.: Yes I have reviewed all pertinent clinical information: Yes Notes (Text): 12/29/18 03:21 patient was seen at bedside. Had BP 190/90 and was given hydralazine 10 mg PO x 1. Denied headache, dizziness. Resident physician's note reviewed. 12/29/18 03:23
[2018-12-29 04:33] LABS: ALB/GLOB RATIO 1.3 (1.1-1.8); ALBUMIN 3.1 g/dL (3.0-4.8)
[2018-12-29 04:41] LABS: TROPONIN I 0.17 ng/mL
[2018-12-29 04:52] LABS: BASO # 0.01 K/mm3 (0.0-2.0); BASO % 0.1 % (0.0-3.0); HEMOGLOBIN 9.6 g/dL (12.0-16.0); LYMPH # 0.8 (1.2-3.4); LYMPH % 6.8 % (22.0-35.0); MEAN CELL VOLUME 94.4 fl (80.0-105.0); MEAN CORPUSCULAR HEMOGLOBIN 31.4 pg (25.0-35.0); MEAN CORPUSCULAR HGB CONC 33.2 g/dl (31.0-37.0); MONO # 0.4 (0.1-0.6); RBC 3.06 10^6/uL (3.5-6.1); RED CELL DISTRIBUTION WIDTH 21.4 % (11.5-14.5); WHITE BLOOD COUNT 12.3 10^3/uL (4.5-11.0)
[2018-12-29] MEDS ORDERED: Aspirin 325 mg EC Tablets PO STA (04:53)
--- NOTE | 2018-12-29 08:41 | HP ---
DATE OF EXAM: 12/27/2018 CHIEF COMPLAINT: Weakness, lethargy, and at times seemingly obtunded for approximately 3 days. HISTORY OF PRESENT ILLNESS: This is a 68-year-old woman, I have known for several years. 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 The patient came to dialysis today at her [facility] in [facility] ([facility] After dialysis, they noticed something was not right and suggested she go to emergency room, both she and her felt it best to come to [place] where physicians better know her and she can be taken care of. PAST MEDICAL HISTORY: Significant for Daphnie's granulomatosis diagnosed in 05/2016 when she presented with 2-week history of nasal sinus symptoms and creatinine of 13 where it had been normal only a few months before. She did surprisingly well initially with steroids and Cytoxan and is only 3 months ago when there was a sudden elevation in her BUN and creatinine along with symptoms of severe weakness when she started on dialysis. She has been on dialysis, prednisone and Cytoxan therapy once again and presented to the emergency room with the above symptoms. Past medical history is negative for hypertension ,diabetes, tuberculosis, asthma, seizure, stroke, TIA, RI, or coronary artery disease. PAST SURGICAL HISTORY: Significant for lumpectomy for breast CA in 2018. ALLERGIES: SHE IS ALLERGIC TO PENICILLIN, WHICH CAUSES RASH. SOCIAL HISTORY: She quit smoking several years ago. She eats a regular diet. Rarely drinks alcohol. Drinks one cup of coffee per day. She received shingle vaccine in 12/2015. She is several years ago in stable relationship now, with no children. REVIEW OF SYSTEMS: Significant only for weakness related to dialysis and cushingoid symptoms and appearance from steroid from prednisone use for her Daphnie's renal failure. PHYSICAL EXAMINATION: GENERAL: The patient seen this Saturday afternoon in the emergency room, slot #18 with her at the bedside. She is awake, recognizes me, but is confused, initially she was oriented x1. When I spoke with her, she remembered me, recognized me, knew where she was, but did not know the year. She was able to report she felt sick. She does answer some questions about her medications and allergies. She sometimes drifts off to sleep after conversation with me. VITAL SIGNS: Her temperature in the emergency room was initially 99, later goes to 101. HEAD AND NECK: Unremarkable except to the cushingoid appearance. Conjunctivae are pink. Mucous membranes are moist. Throat is clear. Neck is supple without masses. LUNGS: Show good aeration right and left. HEART: Regular, not tachycardic. BREASTS: Not examined. ABDOMEN: Soft and nontender. There is some soft +2 edema of the lower extremities up to approximately the knee. SKIN: IV access port looks clean at the insertion site in the right upper chest with no erythema. LABORATORY DATA: Show normal white count at 9.6, H and H is 9.7 and 24.2. Chemistries; BUN is 18 and creatinine is 1.9, which comes as a bit of surprise to me as was scheduled for dialysis today. Influenza serology was negative. Lactate was negative. Chest x-ray reports what looks to me small bilateral effusions with vascular congestion and possibility of basilar infiltrate. IMPRESSION: 1. Altered mental status, fever, normal white count, no tachycardia, must suspect infection as most likely etiology of this constellation of symptoms, possible sources would include the lungs with possible infiltrate on chest x-ray, urinary tract and culture and sensitivity is not available as of yet. Skin has access site for sacral area irritation from and dialysis. Must also rule out neurologic versus metabolic factors. 2. Renal failure, on dialysis. 3. Daphnie's granulomatosis. 4. Cushingoid appearance from steroids. 5. Immunocompromised host. PLAN: Broad-spectrum antibiotics have been started in the emergency room. I ordered morning labs. We will repeat hemoglobin and talk with renal consultants about Procrit/Aranesp and possible transfusion at next dialysis center with low hemoglobin. Infectious Disease consulted as the patient is an complex case recent hospitalization immunocompromised with multiple possible suspected sources for this infection. We will also need to discuss with Renal and Hematology/Oncology who are seeing the patient for her breast CA as well as Cytoxan infusion treatments. If mental status remain clouded by tomorrow, we will consider MRI, even though CT in the ER was unremarkable except for perhaps more age-related changes and would be expected given her relative young age. We will follow closely. Simon Webb MD [facility]
[2018-12-29] MEDS: MEROPENEM 500 MG in NS 500 MG/50 ML BAG IVPB SCH ×2 (11:05→21:42)
--- NOTE | 2018-12-29 12:38 | CARD ---
APPROVED REPORT Date of service: 12/29/2018 EKG Measurement Heart [id number] <Conclusion> Sinus tachycardia with premature atrial complexes Otherwise normal ECG
--- NOTE | 2018-12-29 14:22 | CP.PCM.APN ---
Subjective - Date & Time of Evaluation Date of Evaluation: 12/29/18 Time of Evaluation: 10:30 - Subjective Subjective: Pt. seen and examined, appears lethargic, disoriented to person, place. Objective - Vital Signs/Intake and Output Vital Signs (last 24 hours): Temp Pulse Resp BP Pulse Ox 98.8 F 87 20 168/75 H 97 12/29/18 08:41 12/29/18 11:01 12/29/18 08:41 12/29/18 11:02 12/29/18 08:41 Intake and Output: 12/29/18 12/29/18 06:59 18:59 Intake Total 780 Output Total 1050 Balance -270 - Medications Medications: Current Medications Acetaminophen (Tylenol 325mg Tab) 650 mg PO Q4H PRN PRN Reason: Fever >100.4 F Last Admin: 12/29/18 02:38 Dose: 650 mg Calcium Acetate (Phoslo) 667 mg PO BID [facility] Last Admin: 12/29/18 10:59 Dose: 667 mg Furosemide (Lasix) 40 mg IVP DAILY [facility] Last Admin: 12/29/18 11:02 Dose: 40 mg Hydralazine HCl (Apresoline) 50 mg PO BID [facility] Last Admin: 12/29/18 11:01 Dose: 50 mg Meropenem/Sodium Chloride (Merrem Iv 500 Mg/Ns 50 Ml) 500 mg in 50 mls @ 100 mls/hr IVPB Q12 [facility]; Protocol Stop: 01/04/19 22:01 Last Admin: 12/29/18 11:05 Dose: 100 mls/hr Levofloxacin/Dextrose (Levaquin 250mg) 250 mg in 50 mls @ 50 mls/hr IVPB QOD [facility]; Protocol Stop: 01/05/19 19:46 Losartan Potassium (Cozaar) 100 mg PO DAILY [facility] Last Admin: 12/29/18 10:59 Dose: 100 mg Metoprolol Tartrate (Lopressor) 50 mg PO BID [facility] Last Admin: 12/29/18 11:01 Dose: 50 mg Pantoprazole Sodium (Protonix Ec Tab) 40 mg PO ACB [facility] Prednisone (Prednisone Tab) 30 mg PO BID [facility] Last Admin: 12/29/18 10:59 Dose: 30 mg - Labs Labs: 12/29/18 03:55 12/29/18 03:55 - Constitutional Appears: Confused - Head Exam Head Exam: NORMOCEPHALIC - Eye Exam Eye Exam: Normal appearance - ENT Exam ENT Exam: Normal Exam - Neck Exam Neck Exam: Full ROM - Respiratory Exam Respiratory Exam: NORMAL BREATHING PATTERN - Cardiovascular Exam Cardiovascular Exam: Irregular Rhythm, +S1, +S2 - GI/Abdominal Exam GI & Abdominal Exam: Soft, Normal Bowel Sounds - Rectal Exam Rectal Exam: Deferred - Exam Exam: absent: Circumcision, NORMAL INSPECTION, Scrotal Swelling, Testicular Tenderness, Uretheral Discharge, Testicular Vertical Lie, Bladder Distension External exam: absent: Ecchymosis, Erythema, Lacerations, Lesions, NORMAL EXTERNAL EXAM, Swelling Speculum exam: absent: Cervical Discharge, Erythema, Foreign Body, Laceration, NORMAL SPECULUM EXAM, Tissue, Vaginal Bleeding, Vaginal Discharge Bimanual exam: absent: Adenexal Mass, Adnexal, Cervical Motion Tendernes, NORMAL BIMANUAL EXAM, Uterine Enlargement, Uterine Tenderness - Skin Skin Exam: Dry, Intact Assessment and Plan - Assessment and Plan (Free Text) Assessment: ITS Impressions Chest X-Ray 12/27/18 12:53 IMPRESSION: Density at the left base suggest small pleural effusion with underlying atelectasis or infiltrate not excluded. Interval permanent right right dialysis catheter inserted as discussed above. Head CT 12/27/18 12:55 IMPRESSION: Age-appropriate age related neuro degenerative findings are appreciate without definite acute intracranial pattern by standard CT criteria. Follow-up CT or MRI are available if clinically warranted. Incidental sinusitis as discussed above. Microbiology 12/27/18 13:45 Blood-Venous Blood Culture - Preliminary NO GROWTH AFTER 48 HOURS 12/27/18 22:15 Urine Random Urine Culture - Final Gram Positive Cocci 12/27/18 14:50 Blood-Venous Blood Culture - Preliminary NO GROWTH AFTER 24 HOURS Assessment: \ Pt is a 68 year old female, with past medical history of renal disease, breast cancer, and hypertension, admitted with altered mental status, with lethargy,for further eval and treatment. Plan: 1. Altered mental status -Most likely r/t UTI, with UA pos. Gram pos.Cocci 2. UTI with gram pos cocci cont IV antibiotics, urine cx ID sens. pending. 3. Anemia hgb 7.9, s/p 1 unit prbc, hgb 9.6, transfused prbcs as per hemonc, -continue to monitor cbc, stool o.b pending. 4. PNA, left patchy infiltrate, on iv antibiotics 5. left pl.effusion Cont. IV Lasix Will continue to monitor clinical status and follow closely.
[2018-12-29] MEDS ORDERED: Enoxaparin 60 mg Syringe SC STA (18:11)
[2018-12-29] MEDS: Nitroglycerin 2% Ointment Foilpak UD TOP SCH (18:39)
--- NOTE | 2018-12-29 20:49 | PN ---
DATE: 12/29/2018 SUBJECTIVE: The patient is seen lying in bed. She is awake, she is alert. She is confused. She is slow to mentate. is at bedside. She denies any cough. She denies any fevers. She denies any chills. PHYSICAL EXAMINATION GENERAL: Elderly lady lying in bed. VITAL SIGNS: Blood pressure 168/75, heart rate 87, respiratory rate 20, temperature 98.8. HEENT: Normocephalic, atraumatic, positive pallor. NECK: Supple, no JVD. LUNGS: Bilateral equal air entry, bilateral equal expansion, no rales. CARDIOPULMONARY: S1, S2, regular rate and rhythm, no murmur, no rub. ABDOMEN: Obese, distended, soft, nontender, bowel sounds present. EXTREMITIES: No lower extremity edema. LABORATORY DATA: WBC 12, hemoglobin 9.6, hematocrit 28.9, platelets 116, polys 90%. Sodium 133, potassium 3.6, chloride 96, CO2 of 30, BUN 54, creatinine 4.0, glucose 111, calcium 8.0, phosphorus 4.0, magnesium 1.9, albumin 3.1. Troponin 0.17. Urine culture, gram-positive cocci. Blood cultures from 12/27/2018, no growth. CURRENT MEDICATIONS: Apresoline 50 mg b.i.d., losartan 100 mg, Lasix 40 mg IV daily, Levaquin 250 mg IV piggyback every other day, Lopressor 50 mg b.i.d., meropenem 500 mg every 12 hours, PhosLo 667 mg b.i.d., prednisone 30 mg b.i.d., Protonix 40 mg, Tylenol. ASSESSMENT AND PLAN 1. Recurrence of immunogen on immunosuppression. 2. Sepsis, fever, leukocytosis, altered mental status. 3. Uncontrolled hypertension. 4. Currently dialysis dependent. 5. Severe anemia. 6. ?Urinary tract infection. 1. A 24-hour urine for protein and creatinine clearance. 2. Reduce prednisone to 20 mg b.i.d. 3. Repeat blood cultures. 4. Continue empiric antibiotics. 5. Next dialysis tomorrow. 6. Infectious Disease followup. Monserrat French MD [facility] # [id number]
--- NOTE | 2018-12-29 23:09 | CON ---
DATE: 12/29/2018 CONSULT SERVICE CARDIOLOGY REASON FOR CONSULTATION: Followup of elevated troponin, end-stage renal disease, stage IV to V CKD, admitted with altered mental status. BRIEF CLINICAL HISTORY: This is a 68-year-old female with the past medical history significant for Daphnie's granulomatosis, history of Daphnie's granulomatosis of the kidneys, admitted with altered mental status. The patient had a workup done at Dr. Webb's office and found to be with elevated BUN and creatinine and so the patient was advised to be admitted to the hospital. The patient had an altered mental status. The patient's fiance is at the bedside. The patient is unable to give any history, but the patient's fiance has given all the information. The patient denies any chest pain, shortness of breath. Denies any palpitation. The patient had dialysis catheter for possible dialysis on the right side of the chest. PAST MEDICAL HISTORY: Significant for Daphnie's granulomatosis diagnosed in 05/2016, when the patient presented with a two-week history of nasal signs and symptoms and creatinine 13. The patient had been only a few months before was on a steroid, Cytoxan and baseline creatinine was stable. Recently, the patient had a workup done in office and found to be elevated and advised medical admission. Past history denies for hypertension, diabetes or any documented coronary artery disease. Past history also significant for pauci-immune crescentic glomerulonephritis, ANCA positive hypertension, history of breast cancer as mentioned above. PAST SURGICAL HISTORY: Significant for lumpectomy of the breast in 2018, two nodules were removed from the left breast. ALLERGIES: TO PENICILLIN WHICH CAUSES A RASH. SOCIAL HISTORY: Quit smoking several years ago, regular. Denies any history of alcohol abuse or any substance abuse, and lives with her boyfriend. RECENT CARDIAC WORKUP: As follows; the patient had an echocardiography on 10/29/2018, that revealed ejection fraction 56%, right ventricular function is normal, right atrium is normal, moderate mitral regurgitation, mild tricuspid regurgitation, trace pericardial effusion. PHYSICAL EXAMINATION VITAL SIGNS: Height of the patient 5 feet, 6 inches, weight of the patient 147 kg/m2. Temperature afebrile, heart rate is 84, blood pressure 152/80. HEENT: PERRLA. Extraocular muscles intact. NECK: Supple. No carotid bruit or thyromegaly. CHEST: Clear to auscultation. HEART: S1 and S2 regular. ABDOMEN: Soft. EXTREMITIES: Clubbing, cyanosis negative. LABORATORY DATA: Blood workup as follows; WBC 12.3, hemoglobin 9.6, hematocrit 28.9, platelet count 116. Chemistry shows sodium 130, potassium 3.6, chloride 96, carbon dioxide 30, anion gap of 10, BUN 54, creatinine 4. Troponin 0.17, 0.16, 0.32. EKG showed normal sinus rhythm. No acute ST-T changes, essentially normal EKG. IMPRESSION: This is a 68-year-old female with the past medical history of significant for pauci-immune crescentic glomerulonephritis, antinuclear cytoplasmic antibody positive, history of Daphnie's granulomatosis, history of esophageal reflux, on dialysis. The patient had echocardiographic done on the last admission, ejection of 54%, moderate mitral regurgitation, mild tricuspid regurgitation, admitted with altered mental status and worsening renal insufficiency, while troponin borderline positive, in place of renal insufficiency significant unknown, but no complaint of chest pain. EKG is pretty benign. RECOMMENDATIONS: We will treat medically, have started baby aspirin, nitrates, and beta yuki. depending upon the troponin trend and the patient's mentation. If the patient improves mentation, we will consider a stress test. We will follow with you. Thank you Dr. Webb for providing us the opportunity in taking care of the patient, Beatriz Badillo. Mohini Calvert MD
--- NOTE | 2018-12-29 23:17 | PN ---
DATE: 12/29/2018 SUBJECTIVE: The patient was seen earlier today in room 363, bed 1. The patient appears chronically ill with low-grade fevers. PHYSICAL EXAMINATION: VITAL SIGNS: Temperature is 98, T-max of 101.9, blood pressure is 158/80, respiratory rate of 18, heart rate of 87. HEENT: Unremarkable. NECK: Supple. LUNGS: Have decreased breath sounds. HEART: Normal S1 and S2. ABDOMEN: Soft. LABORATORY EXAMINATION: Reveals a white count of 12,300, hemoglobin of 9. Chemistries reveal a BUN of 54, creatinine of 4. Urinalysis is noted. Troponins are elevated. Procalcitonin is 2.81. Influenza is negative. Urine Legionella antigen is negative. Microbiology reveals gram-positive cocci. ASSESSMENT AND PLAN: This is a 68-year-old female with breast cancer, renal disease, hypertension, Daphnie's, sinusitis. Admitted with a fever, tachycardia, positive infiltrates, sepsis with healthcare-associated pneumonia of left lower lobe and right leg erythema appears to be chronic. Currently, the patient is on Levaquin and meropenem. The patient was given a dose of vancomycin and thus far the blood cultures are negative. Urine culture with gram-positive cocci. Repeat blood cultures are ordered. Methicillin-resistant Staphylococcus aureus screen is pending. Sputum cultures pending. We will follow closely with you. Overall prognosis is quite poor. Persistent fevers. We will order a CAT scan abdomen and pelvis and CAT scan of the chest. Ramana Haywood MD
[2018-12-30] MEDS: Nitroglycerin 2% Ointment Foilpak UD TOP SCH ×4 (00:28→19:19)
--- NOTE | 2018-12-30 00:54 | PN ---
DATE: 12/29/2018 SUBJECTIVE: The patient is a 68-year-old woman who was admitted on 12/27/2018 with lethargy and mental status changes. The patient was quite obtunded for approximately three days. The patient has a history of Daphnie granulomatosis, is currently on dialysis. The patient had been doing well; according to the patient's , the change in mental status was rather sudden over the past few days. When seen today, the patient is sitting up in a chair. She seemed to be obtunded, staring off into space, she did however answer questions appropriately. The patient had bursts of SVT on the monitor earlier today. This was treated with metoprolol and Dr. Sprague, the cardiac specialist was notified as well. PHYSICAL EXAMINATION: VITAL SIGNS: Her blood pressure is 168/75. LUNGS: Clear anteriorly. HEART: Regular. LABORATORY DATA: The patient's white blood cell count was elevated at 12.3, hemoglobin and hematocrit are 9.6 and 28.9 respectively. This is after 1 unit of packed red blood cells were transfused. Earlier in a hospital stay, the patient had been anemic. With the bursts of SVTs through the day, her troponin has elevated. At 04:00 this morning, the troponin was 0.17, it donnie to 0.16 and now at 05:20 in the afternoon it is 0.32. MEDICATIONS: She is being treated with Levaquin and meropenem for possible infection, apparently gram-positive cocci were growing in her urine. Further identification is still pending. Nitroglycerin patch has been placed. ASSESSMENT AND PLAN: Towards the end of my visit with the patient, the patient's arrived and he was informed of the patient's status. We are continuing to follow the patient closely. Mars Webb MD
[2018-12-30] MEDS ORDERED: Barium Sulfate Susp 2.1% w/v, 2.0% w/w 450 mL Bottle PO ONE (00:59)
--- NOTE | 2018-12-30 05:19 | CP.PCM.PN ---
Subjective - Date & Time of Evaluation Date of Evaluation: 12/30/18 Time of Evaluation: 05:18 - Subjective Subjective: I was asked to co-sign order of hydralazine 10 mg IV x 1. Patient was seen at bed side, is asleep , not in distress. As per patient's nurse, hydralazine was ordered for BP of BP 192/111,which has gone down to 186/98 after hydralazine was given. Patient is asymptomatic and resting Medical record was reviewed. This 68 year old woman was admitted with altered mental status , fever, renal insufficiency. Has PMH of HTN, ESRD on HD, Anaya's granulomatosis,Cushingoid from steroids, immunocompromised status, breast cancer, lumpectomy,ex smoker, occasional alcohol user. Objective - Vital Signs/Intake and Output Vital Signs (last 24 hours): Temp Pulse Resp BP Pulse Ox 99.3 F 88 20 186/90 H 95 12/30/18 00:00 12/30/18 02:00 12/30/18 00:00 12/30/18 01:30 12/30/18 00:00 Intake and Output: 12/29/18 12/30/18 18:59 06:59 Intake Total 660 Output Total 750 Balance -90 - Medications Medications: Current Medications Acetaminophen (Tylenol 325mg Tab) 650 mg PO Q4H PRN PRN Reason: Fever >100.4 F Last Admin: 12/29/18 02:38 Dose: 650 mg Aspirin (Ecotrin) 81 mg PO DAILY [facility] Calcium Acetate (Phoslo) 667 mg PO BID [facility] Last Admin: 12/29/18 17:56 Dose: 667 mg Furosemide (Lasix) 40 mg IVP DAILY [facility] Last Admin: 12/29/18 11:02 Dose: 40 mg Hydralazine HCl (Apresoline) 50 mg PO BID [facility] Last Admin: 12/29/18 17:57 Dose: 50 mg Meropenem/Sodium Chloride (Merrem Iv 500 Mg/Ns 50 Ml) 500 mg in 50 mls @ 100 mls/hr IVPB Q12 [facility]; Protocol Stop: 01/04/19 22:01 Last Admin: 12/29/18 21:42 Dose: 100 mls/hr Levofloxacin/Dextrose (Levaquin 250mg) 250 mg in 50 mls @ 50 mls/hr IVPB QOD [facility]; Protocol Stop: 01/05/19 19:46 Losartan Potassium (Cozaar) 100 mg PO DAILY [facility] Last Admin: 12/29/18 10:59 Dose: 100 mg Metoprolol Tartrate (Lopressor) 50 mg PO BID [facility] Last Admin: 12/29/18 17:56 Dose: 50 mg Nitroglycerin (Nitro-Bid 2% Oint) 1 ea TOP Q6H [facility] Last Admin: 12/30/18 00:28 Dose: 1 ea Pantoprazole Sodium (Protonix Ec Tab) 40 mg PO ACB [facility] Prednisone (Prednisone Tab) 20 mg PO BID [facility] Last Admin: 12/29/18 17:56 Dose: 20 mg - Labs Labs: 12/29/18 03:55 12/29/18 03:55 - Constitutional Appears: Well, No Acute Distress - Head Exam Head Exam: ATRAUMATIC, NORMAL INSPECTION, NORMOCEPHALIC - Eye Exam Eye Exam: Normal appearance - ENT Exam ENT Exam: Normal External Ear Exam - Neck Exam Neck Exam: Normal Inspection - Respiratory Exam Respiratory Exam: NORMAL BREATHING PATTERN - Cardiovascular Exam Cardiovascular Exam: absent: JVD - GI/Abdominal Exam GI & Abdominal Exam: absent: Distended - Rectal Exam Rectal Exam: Deferred - Exam Additional comments: Deferred. - Extremities Exam Extremities Exam: Normal Inspection - Back Exam Back Exam: NORMAL INSPECTION - Neurological Exam Additional comments: Asleep. - Psychiatric Exam Additional comments: Asleep. - Skin Skin Exam: Normal Color Assessment and Plan - Assessment and Plan (Free Text) Assessment: Elevated blood pressure reading. HTN. Anaya's granulomatosis. Breast cancer history. Immunocompromised status. Cushingoid appearance from steroids. ESRD on HD. Plan: Recheck blood pressure in one hour. Give more antihypertensive prn. Continue present managemtn.
[2018-12-30 06:44] LABS: HDL CHOLESTEROL 57 mg/dL (29-60)
[2018-12-30 07:05] LABS: LDL CHOLESTEROL 136 mg/dL (0-129)
[2018-12-30 07:26] LABS: TROPONIN I 0.29 ng/mL
[2018-12-30] MEDS: Pantoprazole 40 mg EC Tab PO SCH (08:25)
[2018-12-30] MEDS: MEROPENEM 500 MG in NS 500 MG/50 ML BAG IVPB SCH (10:00)
[2018-12-30 12:06] LABS: HEMOGLOBIN 10.3 g/dL (12.0-16.0); MEAN CELL VOLUME 96.9 fl (80.0-105.0); MEAN CORPUSCULAR HEMOGLOBIN 31.5 pg (25.0-35.0); MEAN CORPUSCULAR HGB CONC 32.5 g/dl (31.0-37.0); RBC 3.27 10^6/uL (3.5-6.1); RED CELL DISTRIBUTION WIDTH 21.3 % (11.5-14.5); WHITE BLOOD COUNT 11.7 10^3/uL (4.5-11.0)
[2018-12-30 12:36] LABS: ALB/GLOB RATIO 1.3 (1.1-1.8); ALBUMIN 3.2 g/dL (3.0-4.8); ALT/SGPT 38 U/L (7-56); AST/SGOT 35 U/L (14-36); BLOOD UREA NITROGEN 77 mg/dL (7-21); CALCIUM 8.3 mg/dL (8.4-10.5); GFR NON-AFRICAN AMERICAN 8; TROPONIN I 0.25 ng/mL
[2018-12-30 13:27] LABS: BASO # 0.01 K/mm3 (0.0-2.0); BASO % 0.1 % (0.0-3.0); HEMOGLOBIN 11.2 g/dL (12.0-16.0); LYMPH # 1.6 (1.2-3.4); MEAN CELL VOLUME 97.5 fl (80.0-105.0); MEAN CORPUSCULAR HEMOGLOBIN 31.1 pg (25.0-35.0); MEAN CORPUSCULAR HGB CONC 31.9 g/dl (31.0-37.0); MEAN PLATELET VOLUME 11.1 fl (7.0-11.0); MONO # 0.4 (0.1-0.6); RBC 3.6 10^6/uL (3.5-6.1); RED CELL DISTRIBUTION WIDTH 21.5 % (11.5-14.5); WHITE BLOOD COUNT 14.5 10^3/uL (4.5-11.0)
[2018-12-30 13:39] LABS: ALB/GLOB RATIO 1.4 (1.1-1.8); ALBUMIN 3.6 g/dL (3.0-4.8); CALCIUM 8.5 mg/dL (8.4-10.5)
--- NOTE | 2018-12-30 13:47 | CT ---
Date of service: 12/30/2018 PROCEDURE: CT Chest, Abdomen and Pelvis without intravenous contrast HISTORY: fever, r/o empyema COMPARISON: Comparison is made to the previous PET-CT dated 03/27/2018 TECHNIQUE: Radiation dose: Total exam DLP = 935.75 mGy-cm. This CT exam was performed using one or more of the following dose reduction techniques: Automated exposure control, adjustment of the mA and/or kV according to patient size, and/or use of iterative reconstruction technique. FINDINGS: CT CHEST WITHOUT CONTRAST: LUNGS: There are foci of dense ground-glass opacities and airspace consolidation noted in both lungs. Findings are nonspecific and the differential consideration includes multifocal pneumonia versus severe pulmonary vascular congestion or pneumonitis. Partial atelectasis of both lower lobes due to pleural effusions. MEDIASTINUM: The thoracic aorta is slightly ectatic and tortuous. The main pulmonary artery is mildly enlarged measures up to 3.5 centimeter in the transverse diameter. LYMPH NODES: No evidence of significant lymphadenopathy. PLEURA: Moderate sized bilateral pleural effusions noted. The evaluation for possible empyema is limited without IV contrast administration. No definite evidence of localized pleural effusion in this study. BONES: Unremarkable. OTHER FINDINGS: Right-sided hemodialysis catheter is seen in place. CT ABDOMEN AND PELVIS: LIVER: Unremarkable. No gross lesion or ductal dilatation. GALLBLADDER AND BILE DUCTS: Unremarkable. PANCREAS: Unremarkable. No gross lesion or ductal dilatation. SPLEEN: Unremarkable. ADRENALS: Unremarkable. No mass. KIDNEYS AND URETERS: There is no evidence of hydronephrosis or obstructing renal calculi. There is focal thickening or cortical lesion noted at the mid pole left kidney new compared to the prior PET-CT. Further evaluation by ultrasound is recommended. The ureters are not dilated. VASCULATURE: Diffuse atherosclerotic calcification noted. Unremarkable. No aortic aneurysm. BOWEL: Unremarkable. No obstruction. No gross mural thickening. Mild constipation and scattered colonic diverticulosis noted. APPENDIX: Normal appendix. PERITONEUM: Unremarkable. No free fluid. No free air. LYMPH NODES: Unremarkable. No enlarged lymph nodes. BLADDER: Unremarkable. REPRODUCTIVE: Unremarkable. BONES: No acute fracture. OTHER FINDINGS: Mild soft tissue edema. IMPRESSION: Moderate to large bilateral pleural effusions. The evaluation for possible empyema is limited without IV contrast administration. No evidence of localized pleural effusion. Cardiomegaly. Patchy foci of dense ground-glass opacities and airspace consolidation in both lungs may represent multifocal pneumonia versus less likely pneumonitis or severe pulmonary congestion. No evidence of acute pathology in the abdomen and pelvis. Focal cortical thickening versus cortical lesion noted at the midpole of the left kidney. Further evaluation by ultrasound is suggested.
--- NOTE | 2018-12-30 13:50 | CT ---
Date of service: 12/30/2018 PROCEDURE: CT HEAD WITHOUT CONTRAST. 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 Radiation dose: Total exam DLP = 988.34 mGy-cm. This CT exam was performed using one or more of the following dose reduction techniques: Automated exposure control, adjustment of the mA and/or kV according to patient size, and/or use of iterative reconstruction technique. FINDINGS: HEMORRHAGE: No intracranial hemorrhage. BRAIN: No mass effect or edema. Again noted is age-appropriate volume loss and mild chronic microvascular white matter ischemic changes. VENTRICLES: Unremarkable. No hydrocephalus. CALVARIUM: Unremarkable. PARANASAL SINUSES: Mucosal thickening and air-fluid level noted in the sphenoid sinuses. Mucosal thickening in the ethmoid and right maxillary sinuses is also noted. MASTOID AIR CELLS: Unremarkable as visualized. No inflammatory changes. OTHER FINDINGS: None. IMPRESSION: No evidence of acute intracranial hemorrhage mass effect or midline shift. No significant interval change in the brain parenchyma noted since the prior study. Sphenoid and right maxillary mucosal thickening suspicious for sinusitis.
--- NOTE | 2018-12-30 14:14 | CP.PCM.PCO ---
Physician Communication Note - Physician Communication Note Physician Communication Note: ABSENCE MANAGEMENT CONSULTANT this afternoon, in HD,seizure activity,neuro consulted.HR elev,card rec
--- NOTE | 2018-12-30 14:18 | PN ---
DATE: 12/30/2018 SUBJECTIVE: The patient is currently seen receiving acute inpatient dialysis. She appears to be confused. She is speaking, but not making much sense to me when she talks. She remains mildly hypertensive on dialysis. We are targeting 1.5 liters of fluid off. MEDICATIONS Medication list reviewed. The patient is on hydralazine, clonidine, losartan, IV Lasix, Levaquin, Lopressor, meropenem, nitroglycerin ointment, PhosLo, prednisone, Protonix, and Tylenol p.r.n. OBJECTIVE: INTAKE/OUTPUT: Intake is 660, output is 750 mL of urine from yesterday. VITAL SIGNS: Blood pressure presently is ranging from 173-182 systolic, diastolics ranging from 110-115. Heart rate 88, temperature 98.1 with a respiratory rate of 20. HEENT: Shows her to be normocephalic, atraumatic. Conjunctivae remain pale. Sclerae nonicteric. NECK: Supple. No neck vein distention. CHEST: Decreased breath sounds at the left base. Right chest wall PermCath. CARDIOVASCULAR: Shows a regular rate and rhythm without audible murmurs, rubs or gallops. ABDOMEN: Soft. Bowel sounds normal. No rebound, guarding or masses. EXTREMITIES: Show no lower extremity cyanosis, clubbing or edema. LABORATORY DATA IMAGING: CBC, white blood cell count 11.7, hemoglobin 10.3 with platelet count of 117,000. Chemistries from today are pending. Yesterday's BUN was 54 with a creatinine of 4.0. Calcium is 8.0 with an albumin of 3.1, corrects to normal. Phosphorus 4.2, magnesium level 1.9. Mild elevation of troponin levels. Elevated LDH. CPK values are nondetectable. Urine, 1-3 red cells, 2-5 white blood cells. Serologies, influenza is negative. Urine for Legionella, pneumophila antigen is negative. Microbiology, urine cultures, gram-positive cocci, less than 10,000, likely nonsignificant. Blood cultures are negative at 48 hours. ASSESSMENT: 1. Acute renal failure with the patient requiring dialysis, likely had gone on to end-stage renal disease. 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 She had re-activation of disease back in October. The patient was treated with steroids, she had plasmapheresis. In the past, she has . She has been on rituximab and quite possibly she had a course of Cytoxan. The patient is currently on dialysis three times a week. 2. Altered mental status. Unclear as to the exact etiology of this. Head CT scan done on admission was unremarkable. Quite possible secondary to sepsis, but so for culture negative. Her leukocytosis might be secondary to use of steroids. 3. Uncontrolled hypertension. The patient remains on a multitude of blood pressure medications. Hoping to see reduction in her blood pressures with today's dialysis. 4. History of anemia in part secondary to chronic kidney disease/end-stage renal disease. 5. History of breast cancer, status post lumpectomy, stable. 6. History of secondary hyperparathyroidism. Phosphorus level is controlled. The patient is currently on binder therapy and a renal diet. PLAN: 1. Perhaps Neuro evaluation for altered mental status. 2. Continue followup with Infectious Disease. The patient remains on empiric antibiotic therapy. 3. No evidence for urinary tract infection. 4. Discussed with dialysis staff. We will continue to ultrafiltrate the patient and see for blood pressure drops. The patient could alternatively receive oral clonidine during dialysis if necessary. 5. Continue present blood pressure medications, including that of hydralazine, losartan. I will add a calcium channel yuki, Norvasc 5 mg a day to help improve her blood pressure control. 6. Continue all dietary restrictions. 7. Suggest Neuro evaluation for altered mental status. 8. Agree with tapering of steroid dose. 9. Close renal followup. Ovidio Randall MD
[2018-12-30] MEDS: Acyclovir 250 MG in Sodium Chloride 0.9% 100 ML IV SCH (14:24)
[2018-12-30 14:45] LABS: ALB/GLOB RATIO 1.3 (1.1-1.8); ALBUMIN 2.9 g/dL (3.0-4.8); CALCIUM 7.9 mg/dL (8.4-10.5)
[2018-12-30 14:46] LABS: URINE CREATININE 33.8 mg/dL
[2018-12-30 14:49] LABS: TROPONIN I 0.26 ng/mL
[2018-12-30 14:57] LABS: URINE 24 HOUR TOTAL PROTEIN 4928 mg/24HR (42-225); URINE TOTAL VOLUME 1400 mL (800-1400)
--- NOTE | 2018-12-30 15:01 | CP.PCM.CON ---
History of Present Illness - History of Present Illness History of Present Illness: Patient is 68yo female with PMhx of GPA, with renal failure, ESRD on HD, HTN, on Chronic steroids, Prednisone 20mg POD BID, admitted for confusion, altered mental state. As per the HCP/Firaule, who povided most of the history patient ruiz s periods of confusion, not recognizing him, confused to her location, with moments of lucidity. Pt has had 2 episodes of temp spikes while in the hospital. This morning after finishing HD, she had 2 witnessed general tonic clonic seizures, 1 minute, and 45 seconds; first one broke on its own second seizure required Ativan 4mg IV x 1. PMhx as above PSHx as above Meds as per EMR FHx NC Social denies smoking, etoh, drug use ROS cannot obtain Review of Systems - Review of Systems Review of Systems: cannot obtain Past Patient History - Infectious Disease Hx of Infectious Diseases: None - Past Social History Smoking Status: Never Smoked - CARDIAC Hx Cardiac Disorders: Yes Hx Hypertension: Yes - PULMONARY Hx Respiratory Disorders: Yes - NEUROLOGICAL Hx Neurological Disorder: No - HEENT Hx HEENT Problems: Yes (SINUSITIS WITH SINUS SX-REMOVAL OF POLYPS) Other/Comment: sinus sx with removal of polyps 2014 - RENAL Date of Last Dialysis Treatment: 12/27/18 - ENDOCRINE/METABOLIC Hx Endocrine Disorders: No - HEMATOLOGICAL/ONCOLOGICAL Hx Blood Disorders: Yes (wegners disease dx 2 yrs ago) Hx Cancer: Yes (r breast bx 02/2018) Other/Comment: lumpectomy 05/2018 followed by 21 radiation treatments which ended jul 2018, stage 1 - INTEGUMENTARY Hx Dermatological Problems: Yes Other/Comment: multiple brusing b/l arms, r chest hd cath, hammertoes - MUSCULOSKELETAL/RHEUMATOLOGICAL Hx Falls: No - GASTROINTESTINAL Hx Gastrointestinal Disorders: Yes Other/Comment: hx colonoscopy/endoscopy - GENITOURINARY/GYNECOLOGICAL Hx Genitourinary Disorders: No - PSYCHIATRIC Hx Substance Use: No - SURGICAL HISTORY Hx Surgeries: Yes Hx Appendectomy: Yes (age 9) Other/Comment: hemorrhoid sx when pt was in her 30's, colon polyps removal, sinus sx with removal of polyps 2014, r breast mass bx done 02/26/18 lumpectomy done 05/2018 had 21 radiation treatments which ended 2017, was stage 1, r jug hd cath inserted 10/22/18, d&c, hemorrhoidectomy - ANESTHESIA Hx Anesthesia Reactions: No Hx Malignant Hyperthermia: No Meds Allergies/Adverse Reactions: Allergies Allergy/AdvReac Type Severity Reaction Status Date / Time Penicillins Allergy RASH Verified 11/12/18 14:43 - Medications Medications: Current Medications Acetaminophen (Tylenol 325mg Tab) 650 mg PO Q4H PRN PRN Reason: Fever >100.4 F Last Admin: 12/29/18 02:38 Dose: 650 mg Amlodipine Besylate (Norvasc) 5 mg PO DAILY [facility] Aspirin (Ecotrin) 81 mg PO DAILY [facility] Calcium Acetate (Phoslo) 667 mg PO BID [facility] Last Admin: 12/29/18 17:56 Dose: 667 mg Clonidine HCl (Catapres-Tts3 0.3 Mg/24 Hr) 1 patch TD Q7D@1000 [facility] Last Admin: 12/30/18 12:07 Dose: 1 patch Clonidine HCl (Catapres) 0.1 mg PO Q4H PRN PRN Reason: hypertension Furosemide (Lasix) 40 mg IVP DAILY [facility] Last Admin: 12/29/18 11:02 Dose: 40 mg Hydralazine HCl (Apresoline) 50 mg PO BID [facility] Last Admin: 12/29/18 17:57 Dose: 50 mg Acyclovir 250 mg/ Sodium (Chloride) 100 mls @ 100 mls/hr IV Q12H [facility]; Protocol Stop: 01/06/19 13:31 Losartan Potassium (Cozaar) 100 mg PO DAILY [facility] Last Admin: 12/29/18 10:59 Dose: 100 mg Metoprolol Tartrate (Lopressor) 50 mg PO BID [facility] Last Admin: 12/30/18 12:07 Dose: 50 mg Nitroglycerin (Nitro-Bid 2% Oint) 1 ea TOP Q6H [facility] Last Admin: 12/30/18 05:38 Dose: 1 ea Pantoprazole Sodium (Protonix Ec Tab) 40 mg PO ACB [facility] Last Admin: 12/30/18 08:25 Dose: 40 mg Prednisone (Prednisone Tab) 20 mg PO BID [facility] Last Admin: 12/29/18 17:56 Dose: 20 mg Physical Exam - Constitutional Appears: Older Than Stated Age, Confused - Head Exam Head Exam: NORMAL INSPECTION - Eye Exam Eye Exam: Normal appearance - ENT Exam ENT Exam: Mucous Membranes Moist - Respiratory Exam Respiratory Exam: Clear to Auscultation Bilateral, NORMAL BREATHING PATTERN - Cardiovascular Exam Cardiovascular Exam: REGULAR RHYTHM, +S1, +S2 - GI/Abdominal Exam GI & Abdominal Exam: Normal Bowel Sounds, Soft - Neurological Exam Neurological exam: Altered, Reflexes Normal Additional comments: obtunded - Skin Skin Exam: Normal Color, Warm Results - Vital Signs Recent Vital Signs: Last Vital Signs Temp 98.1 F 12/30/18 08:04 Pulse 144 H 12/30/18 12:07 Resp 20 12/30/18 08:04 BP 182/115 H 12/30/18 12:07 Pulse Ox 96 12/30/18 08:04 - Labs Result Diagrams: 12/30/18 13:10 12/30/18 14:00 Labs: Laboratory Results - last 24 hr 12/27/18 12/29/18 12/29/18 14:50 03:55 07:00 WBC RBC Hgb Hct MCV MCH MCHC RDW Plt Count MPV Neut % (Auto) Lymph % (Auto) [place] % (Auto) Eos % (Auto) Baso % (Auto) Lymph # (Auto) [place] # (Auto) Eos # (Auto) Baso # (Auto) Absolute Neuts (auto) Sodium Potassium Chloride Carbon Dioxide Anion Gap BUN Creatinine Est GFR ( Amer) Est GFR (Non-Af Amer) POC Glucose (mg/dL) Random Glucose Hemoglobin A1c 5.0 Calcium Phosphorus Magnesium Total Bilirubin AST ALT Alkaline Phosphatase Lactate Dehydrogenase Total Creatine Kinase Troponin I Total Protein Albumin Globulin Albumin/Globulin Ratio Triglycerides Cholesterol LDL Cholesterol Direct HDL Cholesterol TSH 3rd Generation Proteinase 3 (PR3) 1.8 H Crossmatch See Detail 12/29/18 12/30/18 12/30/18 17:21 06:00 06:00 WBC RBC Hgb Hct MCV MCH MCHC RDW Plt Count MPV Neut % (Auto) Lymph % (Auto) [place] % (Auto) Eos % (Auto) Baso % (Auto) Lymph # (Auto) [place] # (Auto) Eos # (Auto) Baso # (Auto) Absolute Neuts (auto) Sodium Potassium Chloride Carbon Dioxide Anion Gap BUN Creatinine Est GFR ( Amer) Est GFR (Non-Af Amer) POC Glucose (mg/dL) Random Glucose Hemoglobin A1c 5.1 Calcium Phosphorus 4.2 Magnesium 1.9 Total Bilirubin AST ALT Alkaline Phosphatase Lactate Dehydrogenase 1589 H Total Creatine Kinase < 20 L Troponin I 0.32 H* D 0.29 H* Total Protein Albumin Globulin Albumin/Globulin Ratio Triglycerides 199 H Cholesterol 220 H LDL Cholesterol Direct 136 H HDL Cholesterol 57 TSH 3rd Generation Proteinase 3 (PR3) Crossmatch 12/30/18 12/30/18 12/30/18 06:00 11:30 11:30 WBC 11.7 H RBC 3.27 L Hgb 10.3 L Hct 31.7 L MCV 96.9 MCH 31.5 MCHC 32.5 RDW 21.3 H Plt Count 117 L MPV 11.0 Neut % (Auto) Lymph % (Auto) [place] % (Auto) Eos % (Auto) Baso % (Auto) Lymph # (Auto) [place] # (Auto) Eos # (Auto) Baso # (Auto) Absolute Neuts (auto) Sodium 134 Potassium 3.7 Chloride 94 L Carbon Dioxide 29 Anion Gap 15 BUN 77 H Creatinine 5.1 H Est GFR ( Amer) 10 Est GFR (Non-Af Amer) 8 POC Glucose (mg/dL) Random Glucose 94 Hemoglobin A1c Calcium 8.3 L Phosphorus Magnesium 1.9 Total Bilirubin 0.5 AST 35 ALT 38 Alkaline Phosphatase 78 Lactate Dehydrogenase Total Creatine Kinase Troponin I 0.25 H* Total Protein 5.7 L Albumin 3.2 Globulin 2.5 Albumin/Globulin Ratio 1.3 Triglycerides Cholesterol LDL Cholesterol Direct HDL Cholesterol TSH 3rd Generation 0.81 Proteinase 3 (PR3) Crossmatch 12/30/18 12/30/18 12/30/18 12:59 13:10 13:10 WBC 14.5 H D RBC 3.60 Hgb 11.2 L Hct 35.1 L MCV 97.5 MCH 31.1 MCHC 31.9 RDW 21.5 H Plt Count 137 MPV 11.1 H Neut % (Auto) 85.9 H Lymph % (Auto) 11.0 L [place] % (Auto) 3.0 Eos % (Auto) 0.0 L Baso % (Auto) 0.1 Lymph # (Auto) 1.6 [place] # (Auto) 0.4 Eos # (Auto) 0.0 Baso # (Auto) 0.01 Absolute Neuts (auto) 12.47 H Sodium 135 Potassium 3.1 L Chloride 96 L Carbon Dioxide 22 Anion Gap 20 BUN 30 H Creatinine 2.8 H Est GFR ( Amer) 20 Est GFR (Non-Af Amer) 17 POC Glucose (mg/dL) 116 H Random Glucose 135 H Hemoglobin A1c Calcium 8.5 Phosphorus Magnesium Total Bilirubin 0.7 AST 44 H D ALT 32 Alkaline Phosphatase 84 Lactate Dehydrogenase Total Creatine Kinase Troponin I Total Protein 6.3 Albumin 3.6 Globulin 2.7 Albumin/Globulin Ratio 1.4 Triglycerides Cholesterol LDL Cholesterol Direct HDL Cholesterol TSH 3rd Generation Proteinase 3 (PR3) Crossmatch - Imaging and Cardiology CT scan - head Status: Image reviewed by me Assessment & Plan - Assessment and Plan (Free Text) Assessment: 68yo female with seizure, AMS Seizure AMS Hx of GPA on chronic steroids ESRD on HD, TuThSat HTN - currently afebrile, HD stable, comfortable in NAD, altered, minimally responsive to pain s/p Ativan 4mg IV x 1 - CT head done, official read pending - Neurology consulted - unclear etiology of seizure, infectious, vs Medication vs auto-immune - needs MRI brain, LP Recommend: - supp o2 as needed, duonebs PRN - Abx as per ID, including 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
--- NOTE | 2018-12-30 15:36 | PCM.RRT ---
<Tim Joiner - Last Filed: 12/30/18 15:32> CARD SELLER Nurse Assessment - Situation Date: 12/30/18 Time CARD SELLER was called: 12:50 CARD SELLER Responder Arrival Time: 12:53 CARD SELLER Location:: Renal Dialysis CARD SELLER Reason for Call: Tachycardia, Hypertension, Change in Mental Status CARD SELLER Called By: RN - IV IV Inserted during CARD SELLER?: No - Respiratory Oxygen Delivery Method: Nasal Cannula @L/min Oxygen Flow Rate: 4 Received Nebulizer Treatments:: No Was the Patient Ventilated with Bag/Mask 100% O2?: No Secretions Suctioned?: No Was the Patient Intubated?: No Was the Patient Placed on a Ventilator?: No - Medication Medications Administered During CARD SELLER: Ativan 2mg IVP. Ativan 2mg IVP - Diagnostic Test Ordered EKG: Yes Chest X-Ray: No CT Scan: Yes - Stat Labs Ordered CARD SELLER Stat Labs Ordered: CBC, BMP, TROPONIN, LACTIC ACID CPR started during CARD SELLER?: No - Vital Signs Vital Sign: Rapid Response Vital Sign Blood Pressure 222/117 Pulse Rate 147 Respiratory Rate 18 Temperature 98.6 F Oxygen Saturation 97 - Finger Stick Blood Glucose Finger Stick Blood Glucose: 116 - Time CARD SELLER Ended Time CARD SELLER Ended: 13:15 - Vital Signs at end of CARD SELLER Vital Signs at end of CARD SELLER: Rapid Response End Vital Sign Blood Pressure 177/103 Pulse Rate 142 Respiratory Rate 16 Temperature 98.2 F O2 Sat by Pulse Oximetry 98 - Recommendations Notifications: Attending Physician, Family or Designated Caregiver I.Reason for CARD SELLER - A) Acute Change in Patient: (Select all that apply): Staff member or family is worried about patient (seizure) - Neurological Status (Select all that apply): absent: Alert, Responsive, Oriented, Verbal, Follows Commands (when told to squeeze with left hand she used her right hand) - Respiratory Oxygen Delivery Method: Nasal Cannula @L/min Oxygen Flow Rate: 4 - Head Head Exam: ATRAUMATIC Additional Comments: bites on tongue present - Eyes Eye Exam: absent: Normal appearance - Respiratory Exam Respiratory Exam: Clear to Ausculation Bilateral, NORMAL BREATHING PATTERN. a bsent: Rales, Wheezes - Cardiovascular Exam Cardiovascular Exam: +S1, +S2 - GI/Abdominal Exam GI & Abdominal Exam: Soft, Normal Bowel Sounds - Neurological Exam Neurological Exam: absent: Alert, Awake, Oriented x3 Plan - Assessment of Findings&Treatment Plan Patient is a 68 F with history of Granulomatosis with polyangiitis, ESRD on HD //Sat, and hypertension who presented with altered mental status found to have UTI. This morning patient was oriented to person and place. During dialysis patient was observed to have had a seizure which was when the rapid response was called. Patient then was observed to have another seizure within 5 minutes of first which lasted about 45 seconds. Ativan 4 mg was given which broke the seizure and patient was sent for CT head. Labs collected included troponin, CBC, CMP, lactate. Patient's PMD was notified and fiance was at bedside and clearly explained what was going on and the plan. ICU was consulted for further evaluation and patient was brought to the ICU after CT head. Neurology was also consulted. Plan 4 mg ativan given, if seizures continue, sedation with propofol and intubate as per Neuro CT head Blood glucose 116 CBC, CMP, Lactate, Troponin Transfer to ICU Neuro consulted Further workup as per ICU: MRI brain, lumbar puncture, Video EEG <Ledy Stevens - Last Filed: 12/30/18 16:14> CARD SELLER Nurse Assessment - Vital Signs Vital Sign: Rapid Response Vital Sign Blood Pressure 222/117 Pulse Rate 147 Respiratory Rate 18 Temperature 98.6 F Oxygen Saturation 97 - Vital Signs at end of CARD SELLER Vital Signs at end of CARD SELLER: Rapid Response End Vital Sign Blood Pressure 177/103 Pulse Rate 142 Respiratory Rate 16 Temperature 98.2 F O2 Sat by Pulse Oximetry 98 Attending/Attestation - Attestation I have personally seen and examined this patient.: Yes I have fully participated in the care of the patient.: Yes I have reviewed all pertinent clinical information, including history, physical exam and plan: Yes Notes (Text): 12/30/18 16:13 Patient had 2 seizures while in dialysis. Ativan given. CT head ordered. Neurology notified and ICU evaluation requested. Fiance was at bedside and updated on plan of care as well. Ledy Stevens MD Hospitalist.
--- NOTE | 2018-12-30 15:52 | CP.PCM.CON ---
<Eliel Cheek - Last Filed: 12/30/18 17:41> History of Present Illness - History of Present Illness History of Present Illness: Eliel Cheek PGY2 Neurology Consult Note for Dr. Orellana 68 yo female with PMhx of Granulomatosis with polyangitis with renal failure, ESRD on HD, HTN, on Chronic steroids, Prednisone 20mg POD BID, admitted for initially for confusion and altered mental state. She is being consulted for seizures which occurred today HD. Rapid response was called and patient had 2 witnessed general tonic clonic seizures, first lasting 1 minute, and the second lasting 45 seconds. First seizure broke on its own and second seizure required Ativan 4mg IV once. Patient is currently post ictal. Patient has also had spiking of fevers during her stay. ROS unable to be attained due to post ictal state. PMhx as above PSHx as above Meds as per EMR FHx NC Social denies smoking, etoh, drug use Review of Systems - Review of Systems Review of Systems: unable to obtain Past Patient History - Infectious Disease Hx of Infectious Diseases: None - Past Social History Smoking Status: Never Smoked - CARDIAC Hx Cardiac Disorders: Yes Hx Hypertension: Yes - PULMONARY Hx Respiratory Disorders: Yes - NEUROLOGICAL Hx Neurological Disorder: No - HEENT Hx HEENT Problems: Yes (SINUSITIS WITH SINUS SX-REMOVAL OF POLYPS) Other/Comment: sinus sx with removal of polyps 2014 - RENAL Date of Last Dialysis Treatment: 12/27/18 - ENDOCRINE/METABOLIC Hx Endocrine Disorders: No - HEMATOLOGICAL/ONCOLOGICAL Hx Blood Disorders: Yes (wegners disease dx 2 yrs ago) Hx Cancer: Yes (r breast bx 02/2018) Other/Comment: lumpectomy 05/2018 followed by 21 radiation treatments which ended jul 2018, stage 1 - INTEGUMENTARY Hx Dermatological Problems: Yes Other/Comment: multiple brusing b/l arms, r chest hd cath, hammertoes - MUSCULOSKELETAL/RHEUMATOLOGICAL Hx Falls: No - GASTROINTESTINAL Hx Gastrointestinal Disorders: Yes Other/Comment: hx colonoscopy/endoscopy - GENITOURINARY/GYNECOLOGICAL Hx Genitourinary Disorders: No - PSYCHIATRIC Hx Substance Use: No - SURGICAL HISTORY Hx Surgeries: Yes Hx Appendectomy: Yes (age 9) Other/Comment: hemorrhoid sx when pt was in her 30's, colon polyps removal, sinus sx with removal of polyps 2014, r breast mass bx done 02/26/18 lumpectomy done 05/2018 had 21 radiation treatments which ended 2017, was stage 1, r jug hd cath inserted 10/22/18, d&c, hemorrhoidectomy - ANESTHESIA Hx Anesthesia Reactions: No Hx Malignant Hyperthermia: No Meds Allergies/Adverse Reactions: Allergies Allergy/AdvReac Type Severity Reaction Status Date / Time Penicillins Allergy RASH Verified 11/12/18 14:43 - Medications Medications: Current Medications Acetaminophen (Tylenol 325mg Tab) 650 mg PO Q4H PRN PRN Reason: Fever >100.4 F Last Admin: 12/29/18 02:38 Dose: 650 mg Amlodipine Besylate (Norvasc) 5 mg PO DAILY [facility] Aspirin (Ecotrin) 81 mg PO DAILY [facility] Calcium Acetate (Phoslo) 667 mg PO BID [facility] Last Admin: 12/29/18 17:56 Dose: 667 mg Clonidine HCl (Catapres-Tts3 0.3 Mg/24 Hr) 1 patch TD Q7D@1000 [facility] Last Admin: 12/30/18 12:07 Dose: 1 patch Clonidine HCl (Catapres) 0.1 mg PO Q4H PRN PRN Reason: hypertension Furosemide (Lasix) 40 mg IVP DAILY [facility] Last Admin: 12/29/18 11:02 Dose: 40 mg Hydralazine HCl (Apresoline) 50 mg PO BID [facility] Last Admin: 12/29/18 17:57 Dose: 50 mg Acyclovir 250 mg/ Sodium (Chloride) 100 mls @ 100 mls/hr IV Q12H [facility]; Protocol Stop: 01/06/19 13:31 Last Admin: 12/30/18 14:24 Dose: 100 mls/hr Losartan Potassium (Cozaar) 100 mg PO DAILY [facility] Last Admin: 12/29/18 10:59 Dose: 100 mg Metoprolol Tartrate (Lopressor) 50 mg PO BID [facility] Last Admin: 12/30/18 12:07 Dose: 50 mg Nitroglycerin (Nitro-Bid 2% Oint) 1 ea TOP Q6H [facility] Last Admin: 12/30/18 05:38 Dose: 1 ea Pantoprazole Sodium (Protonix Ec Tab) 40 mg PO ACB [facility] Last Admin: 12/30/18 08:25 Dose: 40 mg Prednisone (Prednisone Tab) 20 mg PO BID [facility] Last Admin: 12/29/18 17:56 Dose: 20 mg Physical Exam - Constitutional Appears: No Acute Distress Additional comments: post ictal - Eye Exam Eye Exam: PERRL Additional comments: no nystagmus - ENT Exam ENT Exam: Mucous Membranes Moist - Respiratory Exam Respiratory Exam: Clear to Auscultation Bilateral, NORMAL BREATHING PATTERN - Cardiovascular Exam Cardiovascular Exam: REGULAR RHYTHM, +S1, +S2 - GI/Abdominal Exam GI & Abdominal Exam: Soft - Extremities Exam Extremities exam: Positive for: pedal pulses present - Neurological Exam Additional comments: not awake, not responsive to sternal reggie, snoring, no nystagmus, eyes PERRL Results - Vital Signs Recent Vital Signs: Last Vital Signs Temp 99.4 F 12/30/18 14:00 Pulse 103 H 12/30/18 14:50 Resp 22 12/30/18 14:50 BP 142/83 12/30/18 15:00 Pulse Ox 97 12/30/18 15:00 - Labs Result Diagrams: 12/30/18 13:10 12/30/18 14:00 Labs: Laboratory Results - last 24 hr 12/27/18 12/29/18 12/29/18 14:50 03:55 07:00 WBC RBC Hgb Hct MCV MCH MCHC RDW Plt Count MPV Neut % (Auto) Lymph % (Auto) [place] % (Auto) Eos % (Auto) Baso % (Auto) Lymph # (Auto) [place] # (Auto) Eos # (Auto) Baso # (Auto) Absolute Neuts (auto) Sodium Potassium Chloride Carbon Dioxide Anion Gap BUN Creatinine Est GFR ( Amer) Est GFR (Non-Af Amer) POC Glucose (mg/dL) Random Glucose Hemoglobin A1c 5.0 Calcium Phosphorus Magnesium Total Bilirubin AST ALT Alkaline Phosphatase Lactate Dehydrogenase Total Creatine Kinase Troponin I Total Protein Albumin Globulin Albumin/Globulin Ratio Triglycerides Cholesterol LDL Cholesterol Direct HDL Cholesterol TSH 3rd Generation Urine Collection Time Urine Total Volume Creatinine Clearance Ur Protein 24 Hr Calc Proteinase 3 (PR3) 1.8 H Crossmatch See Detail 12/29/18 12/30/18 12/30/18 17:21 06:00 06:00 WBC RBC Hgb Hct MCV MCH MCHC RDW Plt Count MPV Neut % (Auto) Lymph % (Auto) [place] % (Auto) Eos % (Auto) Baso % (Auto) Lymph # (Auto) [place] # (Auto) Eos # (Auto) Baso # (Auto) Absolute Neuts (auto) Sodium Potassium Chloride Carbon Dioxide Anion Gap BUN Creatinine Est GFR ( Amer) Est GFR (Non-Af Amer) POC Glucose (mg/dL) Random Glucose Hemoglobin A1c 5.1 Calcium Phosphorus 4.2 Magnesium 1.9 Total Bilirubin AST ALT Alkaline Phosphatase Lactate Dehydrogenase 1589 H Total Creatine Kinase < 20 L Troponin I 0.32 H* D 0.29 H* Total Protein Albumin Globulin Albumin/Globulin Ratio Triglycerides 199 H Cholesterol 220 H LDL Cholesterol Direct 136 H HDL Cholesterol 57 TSH 3rd Generation Urine Collection Time Urine Total Volume Creatinine Clearance Ur Protein 24 Hr Calc Proteinase 3 (PR3) Crossmatch 12/30/18 12/30/18 12/30/18 06:00 11:30 11:30 WBC 11.7 H RBC 3.27 L Hgb 10.3 L Hct 31.7 L MCV 96.9 MCH 31.5 MCHC 32.5 RDW 21.3 H Plt Count 117 L MPV 11.0 Neut % (Auto) Lymph % (Auto) [place] % (Auto) Eos % (Auto) Baso % (Auto) Lymph # (Auto) [place] # (Auto) Eos # (Auto) Baso # (Auto) Absolute Neuts (auto) Sodium 134 Potassium 3.7 Chloride 94 L Carbon Dioxide 29 Anion Gap 15 BUN 77 H Creatinine 5.1 H Est GFR ( Amer) 10 Est GFR (Non-Af Amer) 8 POC Glucose (mg/dL) Random Glucose 94 Hemoglobin A1c Calcium 8.3 L Phosphorus Magnesium 1.9 Total Bilirubin 0.5 AST 35 ALT 38 Alkaline Phosphatase 78 Lactate Dehydrogenase Total Creatine Kinase Troponin I 0.25 H* Total Protein 5.7 L Albumin 3.2 Globulin 2.5 Albumin/Globulin Ratio 1.3 Triglycerides Cholesterol LDL Cholesterol Direct HDL Cholesterol TSH 3rd Generation 0.81 Urine Collection Time Urine Total Volume Creatinine Clearance Ur Protein 24 Hr Calc Proteinase 3 (PR3) Crossmatch 12/30/18 12/30/18 12/30/18 12:59 13:10 13:10 WBC 14.5 H D RBC 3.60 Hgb 11.2 L Hct 35.1 L MCV 97.5 MCH 31.1 MCHC 31.9 RDW 21.5 H Plt Count 137 MPV 11.1 H Neut % (Auto) 85.9 H Lymph % (Auto) 11.0 L [place] % (Auto) 3.0 Eos % (Auto) 0.0 L Baso % (Auto) 0.1 Lymph # (Auto) 1.6 [place] # (Auto) 0.4 Eos # (Auto) 0.0 Baso # (Auto) 0.01 Absolute Neuts (auto) 12.47 H Sodium 135 Potassium 3.1 L Chloride 96 L Carbon Dioxide 22 Anion Gap 20 BUN 30 H Creatinine 2.8 H Est GFR ( Amer) 20 Est GFR (Non-Af Amer) 17 POC Glucose (mg/dL) 116 H Random Glucose 135 H Hemoglobin A1c Calcium 8.5 Phosphorus Magnesium Total Bilirubin 0.7 AST 44 H D ALT 32 Alkaline Phosphatase 84 Lactate Dehydrogenase Total Creatine Kinase Troponin I 0.26 H* Total Protein 6.3 Albumin 3.6 Globulin 2.7 Albumin/Globulin Ratio 1.4 Triglycerides Cholesterol LDL Cholesterol Direct HDL Cholesterol TSH 3rd Generation Urine Collection Time Urine Total Volume Creatinine Clearance Ur Protein 24 Hr Calc Proteinase 3 (PR3) Crossmatch 12/30/18 12/30/18 12/30/18 14:00 14:00 14:00 WBC RBC Hgb Hct MCV MCH MCHC RDW Plt Count MPV Neut % (Auto) Lymph % (Auto) [place] % (Auto) Eos % (Auto) Baso % (Auto) Lymph # (Auto) [place] # (Auto) Eos # (Auto) Baso # (Auto) Absolute Neuts (auto) Sodium 133 Potassium 3.0 L Chloride 97 L Carbon Dioxide 27 Anion Gap 12 BUN 33 H Creatinine 2.8 H 2.8 H Est GFR ( Amer) 20 Est GFR (Non-Af Amer) 17 POC Glucose (mg/dL) Random Glucose 99 Hemoglobin A1c Calcium 7.9 L Phosphorus Magnesium Total Bilirubin 0.5 AST 32 ALT 32 Alkaline Phosphatase 63 Lactate Dehydrogenase Total Creatine Kinase Troponin I Total Protein 5.2 L Albumin 2.9 L Globulin 2.3 Albumin/Globulin Ratio 1.3 Triglycerides Cholesterol LDL Cholesterol Direct HDL Cholesterol TSH 3rd Generation Urine Collection Time 24 24 Urine Total Volume 1400 1400 Creatinine Clearance 11.0 L Ur Protein 24 Hr Calc 4928 H Proteinase 3 (PR3) Crossmatch Assessment & Plan - Assessment and Plan (Free Text) Assessment: 68 year old female who presents post ictal after two tonic clonic seizures during HD. Plan: Seizure with underlying AMS infectious vs Medication -minimally responsive to pain s/p Ativan 4mg IV -CT head pending -MRI brain -Video EEG -Lumbar puncture with CSF cell count, glucose, protein -started on Acyclovir to cover HSV encephalitis -blood cultures, urine cultures -RPR, VDRL pending Continue to monitor in ICU <ReyanTobi - Last Filed: 01/01/19 16:16> Meds - Medications Medications: Current Medications Amlodipine Besylate (Norvasc) 5 mg PO DAILY [facility] Last Admin: 01/01/19 10:06 Dose: 5 mg Aspirin (Ecotrin) 81 mg PO DAILY [facility] Last Admin: 01/01/19 10:06 Dose: 81 mg Calcium Acetate (Phoslo) 667 mg PO BID [facility] Last Admin: 01/01/19 10:05 Dose: 667 mg Clonidine HCl (Catapres-Tts3 0.3 Mg/24 Hr) 1 patch TD Q7D@1000 [facility] Last Admin: 12/30/18 12:07 Dose: 1 patch Clonidine HCl (Catapres) 0.1 mg PO Q4H PRN PRN Reason: hypertension Last Admin: 12/31/18 02:24 Dose: 0.1 mg Furosemide (Lasix) 40 mg IVP DAILY [facility] Last Admin: 01/01/19 10:05 Dose: 40 mg Heparin Sodium (Porcine) (Heparin) 5,000 units SC Q12 [facility]; Protocol Hydralazine HCl (Apresoline) 50 mg PO BID [facility] Last Admin: 01/01/19 10:06 Dose: 50 mg Dexmedetomidine HCl (Precedex 400mcg/100ml) 400 mcg in 100 mls @ 3.334 mls/hr IV .Q24H PRN; Protocol PRN Reason: Agitation Last Admin: 12/31/18 08:00 Dose: 0.2 mcg/kg/hr, 3.334 mls/hr Acetaminophen (Ofirmev) 1,000 mg in 100 mls @ 400 mls/hr IVPB Q6H PRN PRN Reason: Temperature Stop: 01/02/19 11:53 Acyclovir 500 mg/ Sodium (Chloride) 100 mls @ 100 mls/hr IV TTS [facility]; Protocol Acyclovir 500 mg/ Sodium (Chloride) 100 mls @ 100 mls/hr IV Q24H [facility]; Protocol Last Admin: 01/01/19 12:23 Dose: 100 mls/hr Losartan Potassium (Cozaar) 100 mg PO DAILY [facility] Last Admin: 01/01/19 10:07 Dose: 100 mg Metoprolol Tartrate (Lopressor) 50 mg PO BID [facility] Last Admin: 01/01/19 10:07 Dose: 50 mg Midazolam HCl (Versed Inj) 2 mg IVP Q4 PRN PRN Reason: Agitation Nitroglycerin (Nitro-Bid 2% Oint) 1 ea TOP Q6H [facility] Last Admin: 01/01/19 05:21 Dose: 1 ea Pantoprazole Sodium (Protonix Ec Tab) 40 mg PO ACB [facility] Last Admin: 01/01/19 10:08 Dose: 40 mg Prednisone (Prednisone Tab) 20 mg PO BID [facility] Last Admin: 01/01/19 10:07 Dose: 20 mg Results - Vital Signs Recent Vital Signs: Last Vital Signs Temp 99.1 F 01/01/19 15:40 Pulse 95 H 01/01/19 15:40 Resp 17 01/01/19 15:40 BP 146/67 01/01/19 15:00 Pulse Ox 100 01/01/19 15:40 - Labs Result Diagrams: 01/01/19 05:30 01/01/19 05:30 Labs: Laboratory Results - last 24 hr 12/31/18 12/31/18 12/31/18 10:50 13:03 14:12 WBC RBC Hgb Hct MCV MCH MCHC RDW Plt Count MPV Neut % (Auto) Lymph % (Auto) [place] % (Auto) Eos % (Auto) Baso % (Auto) Lymph # (Auto) [place] # (Auto) Eos # (Auto) Baso # (Auto) Absolute Neuts (auto) Sodium Potassium Chloride Carbon Dioxide Anion Gap BUN Creatinine Est GFR ( Amer) Est GFR (Non-Af Amer) POC Glucose (mg/dL) 76 Random Glucose Calcium Magnesium 1.9 Total Bilirubin AST ALT Alkaline Phosphatase Total Protein Albumin Globulin Albumin/Globulin Ratio CSF Glucose 39 L CSF Total Protein 73.0 H HSV Source Description 12/31/18 12/31/18 12/31/18 14:15 14:58 16:59 WBC RBC Hgb Hct MCV MCH MCHC RDW Plt Count MPV Neut % (Auto) Lymph % (Auto) [place] % (Auto) Eos % (Auto) Baso % (Auto) Lymph # (Auto) [place] # (Auto) Eos # (Auto) Baso # (Auto) Absolute Neuts (auto) Sodium Potassium Chloride Carbon Dioxide Anion Gap BUN Creatinine Est GFR ( Amer) Est GFR (Non-Af Amer) POC Glucose (mg/dL) 85 89 Random Glucose Calcium Magnesium Total Bilirubin AST ALT Alkaline Phosphatase Total Protein Albumin Globulin Albumin/Globulin Ratio CSF Glucose CSF Total Protein HSV Source Description Fluid 12/31/18 12/31/18 01/01/19 19:02 23:21 04:50 WBC RBC Hgb Hct MCV MCH MCHC RDW Plt Count MPV Neut % (Auto) Lymph % (Auto) [place] % (Auto) Eos % (Auto) Baso % (Auto) Lymph # (Auto) [place] # (Auto) Eos # (Auto) Baso # (Auto) Absolute Neuts (auto) Sodium Potassium Chloride Carbon Dioxide Anion Gap BUN Creatinine Est GFR ( Amer) Est GFR (Non-Af Amer) POC Glucose (mg/dL) 95 83 80 Random Glucose Calcium Magnesium Total Bilirubin AST ALT Alkaline Phosphatase Total Protein Albumin Globulin Albumin/Globulin Ratio CSF Glucose CSF Total Protein HSV Source Description 01/01/19 01/01/19 01/01/19 05:30 05:30 12:31 WBC 7.5 RBC 3.76 Hgb 11.7 L D Hct 35.8 L MCV 95.2 MCH 31.1 MCHC 32.7 RDW 19.7 H Plt Count 109 L MPV 10.8 Neut % (Auto) 94.0 H Lymph % (Auto) 4.4 L [place] % (Auto) 1.6 Eos % (Auto) 0.0 L Baso % (Auto) 0.0 Lymph # (Auto) 0.3 L [place] # (Auto) 0.1 Eos # (Auto) 0.0 Baso # (Auto) 0.00 Absolute Neuts (auto) 7.04 H Sodium 136 Potassium 3.9 Chloride 99 Carbon Dioxide 24 Anion Gap 18 BUN 38 H Creatinine 3.4 H Est GFR ( Amer) 16 Est GFR (Non-Af Amer) 13 POC Glucose (mg/dL) 84 Random Glucose 74 Calcium 8.6 Magnesium Total Bilirubin 0.9 AST 34 ALT 34 Alkaline Phosphatase 80 Total Protein 6.4 Albumin 3.6 Globulin 2.8 Albumin/Globulin Ratio 1.3 CSF Glucose CSF Total Protein HSV Source Description Attending/Attestation - Attestation I have personally seen and examined this patient.: Yes I have fully participated in the care of the patient.: Yes I have reviewed all pertinent clinical information: Yes Notes (Text): I agree with the assessment and plan. Consult requested by Dr. Webb. Seizures may be due to infectious etioloty. There is concern for meningoencaphalitis. Will continue current evaluation and management as outlined above. Thank you. 01/01/19 16:16
--- NOTE | 2018-12-30 15:54 | PN ---
DATE: 12/30/2018 REASON FOR CONSULTATION: Elevated troponin, end-stage renal disease, stage IV-V CKD, admitted with altered mental status. SUBJECTIVE: The patient is still very weak, lethargic. is at the bedside (significant other). Asked him about the patient's chest pain, he tried to woke her up. On waking, the patient denies any chest pain, shortness of breath, or any palpitations, very weak, lethargic and is stuporous. OBJECTIVE: GENERAL: Not apparently in distress. VITAL SIGNS: Examination is as follows: Temperature is afebrile, heart rate 88, and blood pressure 183/90. HEENT: PERRLA. Extraocular muscles intact. NECK: Supple. No carotid bruits or thyromegaly. CHEST: Clear to auscultation. HEART: S1 and S2, regular. ABDOMEN: Soft. EXTREMITIES: Clubbing, cyanosis negative. LABORATORY DATA: Blood workup as follows: WBC 12.3, hemoglobin 9.6, hematocrit 28.9, and platelet count 116. Chemistry shows sodium 133, potassium 3.6, chloride 96, carbon dioxide 30, anion gap of 10, BUN 54, and creatinine 4. Troponin 0.17, 0.16, and 0.32, now it is trending down to 0.29, in phase of creatinine clearance of 11 mL an hour. 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 The patient had an echocardiography done last month, which showed preserved left ventricular function, moderate mitral regurgitation, mild tricuspid regurgitation, admitted with altered mental status, worsening renal insufficiency, and troponin borderline positive with maximum troponin peaked to 0.32, now trending down in phase of creatinine clearance of 11 mL an hour, probably significant unknown. The patient is asymptomatic, very lethargic, stuporous. In view of risks-benefit ratio and overall patient's condition, we will treat the patient medically. I am not sure how much the patient can take p.o., we will change to clonidine patch for hypertension and we will start clonidine patch #3 with holding parameters because the patient is not taking p.o. meds possibly because of very weak and lethargic. Discussed with the and we will treat the patient medically, put an inch of Nitro paste and we will continue clonidine patch now and the patient can take p.o. We will continue the p.o. meds including beta-yuki, aspirin because of the patient's uncontrolled hypertension and probably the patient is not taking p.o. meds. If the patient can take p.o. meds, continue baby aspirin, continue Nitro paste, and one dose of enoxaparin was given. We will follow, however, the patient's condition is critical. Long-term prognosis is extremely guarded. The patient had an echocardiography on 10/29/2018 that revealed ejection fraction of 56%, right ventricular function within normal, right atrium is normal, moderate mitral regurgitation, mild tricuspid regurgitation, trace pericardial effusion on 10/29/2018. Thank you, Dr. Webb for providing us the opportunity in taking care of the patient, Beatriz Badillo. Mohini Calvert MD
--- NOTE | 2018-12-30 16:22 | MRI ---
Date of service: 12/30/2018 PROCEDURE: MRI BRAIN WITHOUT CONTRAST HISTORY: new onset seizures COMPARISON: CT head without contrast from 12/30/2018 TECHNIQUE: Multiplanar, multisequence MR images of the brain were obtained without intravenous contrast enhancement. Suboptimal diagnostic quality due to motion degraded images. FINDINGS: HEMORRHAGE: None DWI: There is focal restricted diffusion in the right inferior perisylvian cortex and right medial temporal lobe. BRAIN PARENCHYMA: There is T2/FLAIR hyperintense signal corresponding to the areas of restricted diffusion in the right inferior perisylvian cortex and medial temporal lobe. There are mild chronic microangiopathic changes. There is no mass, mass effect or abnormal extra-axial fluid collection. VENTRICLES: There is mild age-related global parenchymal volume loss and proportionate enlargement of the ventricles and cortical sulci. CRANIUM: There is normal bone marrow signal pattern. ORBITS: Grossly unremarkable. PARANASAL SINUSES/MASTOIDS: There is fluid in the sphenoid sinus and mild mucosal thickening and small amount of fluid in the right maxillary sinus. VASCULAR SYSTEM: There are normal signal voids in the larger intracranial arteries. OTHER FINDINGS: None. IMPRESSION: 1. Suboptimal diagnostic quality due to motion degraded images. Asymmetric signal abnormality in the right inferior perisylvian cortex and right medial temporal lobe. 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 Please correlate with CSF analysis. MRI of the brain with intravenous contrast is recommended for further evaluation. Absence of territorial involvement mitigates against acute infarction and absence of vasogenic edema mitigates against primary neoplasm. 2. Mild chronic microangiopathic changes and mild age-related global parenchymal volume loss.
[2018-12-30 16:50] LABS: HEPATITIS B SURFACE AG Negative (NEGATIVE)
[2018-12-30 16:55] LABS: HEPATITIS B CORE AB NEGATIVE (NEGATIVE)
--- NOTE | 2018-12-30 16:57 | PN ---
DATE: 12/30/2018 SUBJECTIVE: The patient is in bed, was seen earlier today in dialysis. Her mental status is still poor; and her temperature has responded, although she did have a temperature yesterday, today she has been afebrile. PHYSICAL EXAMINATION: VITAL SIGNS: Temperature is 98, T-max yesterday was 101, blood pressure is 183/88, respiratory rate 20, heart rate of 98. HEENT: Unremarkable. NECK: Supple. LUNGS: Have decreased breath sounds. HEART: Normal S1 and S2. ABDOMEN: Soft, nontender. LABORATORY DATA: Reveals the patient has white count of 11,000, hemoglobin of 10, platelets of 117. Chemistries are noted. Urinalysis is noted and serology is noted. Dr. Mars Webb's note from yesterday is reviewed. During dialysis, the patient also had seizures. ASSESSMENT AND PLAN: This is a 68-year-old female with breast cancer, renal disease, hypertension, Daphnie's, and sinusitis who was admitted with fever, tachycardia and sepsis, healthcare-associated pneumonia, has had change in mental status and now with seizures. We will start acyclovir, discontinue the meropenem and Levaquin. We will recommend a neurology evaluation. MRI of the head and spinal tap and herpes encephalitis should be in the consideration with a change in mental status, and we will follow with you. Ramana Haywood MD
--- NOTE | 2018-12-30 17:05 | CARD ---
APPROVED REPORT Date of service: 12/30/2018 EKG Measurement Heart [id number] <Conclusion> Villa artrifact Sinus tachycardia with premature atrial complexes with aberrant conduction Minimal voltage criteria for LVH, may be normal variant Borderline ECG
--- NOTE | 2018-12-30 17:17 | CARD ---
APPROVED REPORT Date of service: 12/30/2018 EKG Measurement Heart [id number] <Conclusion> Sinus tachycardia Otherwise normal ECG
--- NOTE | 2018-12-31 00:23 | PCM.VEEG ---
Video EEG - Procedure Start Date: 12/30/18 Start Time: 18:35 Technical Summary: This is a standard Video EEg acquired using the [employer]de System, and using spike detection software. All electrodes were referenced to a1, a2, and P1 P2 respectively. All spikes and seizure detection was reviewed and analyzed. EEG was observed at all times. - Interpretation Description of the study: With eyes closed, the patient has 6-8 hz posterior dominant rhythm that is reactive, symmetric, and attenuates with eye opening. THere is diffuse background slowing, as well as focal generalized slowing in the right temporal region. Normal sleep was captured with bilaterally symmetric sleep spindles and K complexes. Interictal epileptiform abnormalities: There were frequent, periodic, poorly formed F3 dominant sharp waves throughout this record. They did not evolve into seizures. - Impression Impression: The First 6 hours of this Video EEG show that this is an abnormal awake and sleep video EEG. There are frequent Pled like discharges noted in the left temporal region, as well as right temporal focal slowing. There is also encephalopathy indicated by generalized slowing throughout the background. There were no clinical or subclinical seizures noted. PLEDS or periodic sharp waves can be seen post stroke, post seizure or due to herpes encephalitis. Clinical correlation is required. Dr. Christiano Adams MD DPN Epilepsy Neurology
[2018-12-31] MEDS: Nitroglycerin 2% Ointment Foilpak UD TOP SCH ×4 (00:40→17:38)
[2018-12-31] MEDS: Acyclovir 250 MG in Sodium Chloride 0.9% 100 ML IV SCH (00:41)
[2018-12-31] MEDS ORDERED: Metoprolol 1 mg/ml Inj IVP ONE (07:03)
[2018-12-31] MEDS: Pantoprazole 40 mg EC Tab PO SCH (07:56)
[2018-12-31] MEDS ORDERED: Midazolam 2 MG/2 ML VIAL IVP PRN (08:12)
[2018-12-31] MEDS ORDERED: Dexmedetomidine 400mcg/100mL 400 MCG/100 ML BOTTLE IV PRN (08:15)
--- NOTE | 2018-12-31 08:44 | PN ---
DATE: 12/30/2018 DAILY PROGRESS NOTE SUBJECTIVE: The patient's status was very active today. While at dialysis, she developed seizure, rapid response was called. She was treated with IV Ativan. CT scan of the head was done, which was unremarkable and she was transferred to ICU. Case was discussed with veneer clipper and with Dr. Haywood, at the bedside in the ICU. The patient has been on IV antibiotics for fever, elevated white count. Blood cultures were negative. Urine, creatinine were surprisingly good. Electrolytes were stable through the course of the admission. Cardiology note was appreciated for tachyarrhythmia and elevated troponin noted yesterday. The patient was seen in the Intensive CareUnit. She is sedated after recent Ativan given to break seizures. She will be scheduled for an MRI, Neurology consultation, and possible LP. I spoke at length with her , Guerrero, bringing him up-to-date on her condition and the aggressive approach we are taking with multiple consultants involved. Simon Webb MD [facility]
--- NOTE | 2018-12-31 09:32 | CARD ---
APPROVED REPORT Date of service: 12/29/2018 EKG Measurement Heart [id number] <Conclusion> Normal sinus rhythm Normal ECG
[2018-12-31 11:05] LABS: BASO # 0.01 K/mm3 (0.0-2.0); BASO % 0.1 % (0.0-3.0); HEMOGLOBIN 9.4 g/dL (12.0-16.0); LYMPH # 0.6 (1.2-3.4); LYMPH % 7.5 % (22.0-35.0); MEAN CORPUSCULAR HEMOGLOBIN 31.4 pg (25.0-35.0); MEAN CORPUSCULAR HGB CONC 32.4 g/dl (31.0-37.0); MEAN PLATELET VOLUME 10.8 fl (7.0-11.0); MONO # 0.2 (0.1-0.6); MONO % 2.3 % (1.0-6.0); PLATELET COUNT 90 10^3/uL (120.0-450.0); RBC 2.99 10^6/uL (3.5-6.1); RED CELL DISTRIBUTION WIDTH 20.6 % (11.5-14.5); WHITE BLOOD COUNT 8.4 10^3/uL (4.5-11.0)
--- NOTE | 2018-12-31 11:08 | PN ---
DATE: 12/31/2018 SUBJECTIVE: The patient is seen and examined at bedside. She still confused and at times agitated. PHYSICAL EXAMINATION: VITAL SIGNS: Heart rate 123, oxygen saturation of 97% on 2 liters nasal cannula, respiratory rate 30 (it appears to be related to agitation rather than respiratory distress), blood pressure 125/72. vcEEG is ongoing. HEAD AND NECK: Atraumatic. LUNGS: Few crackles bilaterally. HEART: Regular rate and rhythm. S1 and S2 normal. ABDOMEN: Soft, nontender, and nondistended. MUSCULOSKELETAL: No C/C/E. NEURO: The patient moves all extremities spontaneously. SKIN: Moist. PSYCH: The patient is confused and disoriented. LABORATORY DATA: WBC 14.5, hemoglobin 11.2, platelet count 137. Sodium 133, potassium 3 (the patient is on dialysis and likely will have dialysis today as well), BUN 33, creatinine 2.8, glucose 74 (the patient is on Accu-Chek every 2 hours). AST 32, ALT 32, total bilirubin 0.5, troponin is 0.16. C-reactive protein 17. Urine for Legionella pneumonia negative. Influenza type A and B negative. Hepatitis B core antibody and BS antigen negative. Echocardiogram performed 2 months ago showed normal ejection fraction, normal right ventricular function. CAT scan of the abdomen and pelvis 2 days ago showed moderate to large bilateral pleural effusion, cardiomegaly, patchy foci of dense ground-glass opacities and air space consolidation in both lungs. MRI of the brain showed changes suspicious for encephalitis including herpes encephalitis. EEG report also mentioned encephalitis as part of differential diagnosis or findings found on EEG. ASSESSMENT AND PLAN: This is a 68-year-old lady who presented with altered mental status, clinical seizures and fever in the setting of relative immunocompromise state due to chronic steroid therapy and underlying autoimmune disorder, whose subsequent workup revealed changes highly suspicious for herpes encephalitis. Attempted spinal tap yesterday was unsuccessful, however, the patient was started empirically on acyclovir. 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 The patient did receive dialysis yesterday, however, it was not completed. We will try to repeat spinal tap today as well. Neurology followup will also be appreciated. At present time, the patient is protecting her airway. She has been hemodynamically relatively stable, however, at times agitated and that leads to sinus tachycardia and tachypnea. Small dose of Precedex will be tried. Frequent reorientation and minimizing sleep interruption during the night time and optimizing circadian rhythms will also be undertaken. We will continue targeting euvolemia, euglycemia, normothermia and oxygen saturation more than 90%. The patient will be on Accu-Chek every 2 hours. We will avoid hypoglycemia episodes. ccm time 40 min Garrett Faith MD [facility]
--- NOTE | 2018-12-31 11:14 | CP.PCM.PN ---
Subjective - Date & Time of Evaluation Date of Evaluation: 12/31/18 Time of Evaluation: 11:10 - Subjective Subjective: Neuro Follow-Up Note: Ms. Badillo was evaluated this afternoon in the ICU immediately after having LP done. Pt's fiance present at bedside. Pt states that she feels "ok" and offers no specific complaints. Pt able to answer my questions and participate in neuro exam, however, shortly after she appeared to be in a deep sleeping state. Per pt's fiance, she has been in this sleeping state for several days and this was the first time he has seen her awake and be able to communicate with a provider since being admitted. Denies h/a, dizziness, visual changes, chest pain, sob, abd pain. Objective - Vital Signs/Intake and Output Vital Signs (last 24 hours): Temp Pulse Resp BP Pulse Ox 99.3 F 110 H 23 172/80 H 96 12/31/18 06:00 12/31/18 09:24 12/31/18 06:40 12/31/18 09:24 12/31/18 06:40 Intake and Output: 12/31/18 12/31/18 06:59 18:59 Intake Total 100 Output Total 300 Balance -200 - Medications Medications: Current Medications Acetaminophen (Tylenol 325mg Tab) 650 mg PO Q4H PRN PRN Reason: Fever >100.4 F Last Admin: 12/29/18 02:38 Dose: 650 mg Amlodipine Besylate (Norvasc) 5 mg PO DAILY [facility] Last Admin: 12/31/18 09:22 Dose: 5 mg Aspirin (Ecotrin) 81 mg PO DAILY [facility] Last Admin: 12/31/18 09:23 Dose: 81 mg Calcium Acetate (Phoslo) 667 mg PO BID [facility] Last Admin: 12/31/18 09:15 Dose: Not Given Clonidine HCl (Catapres-Tts3 0.3 Mg/24 Hr) 1 patch TD Q7D@1000 [facility] Last Admin: 12/30/18 12:07 Dose: 1 patch Clonidine HCl (Catapres) 0.1 mg PO Q4H PRN PRN Reason: hypertension Last Admin: 12/31/18 02:24 Dose: 0.1 mg Furosemide (Lasix) 40 mg IVP DAILY [facility] Last Admin: 12/31/18 09:21 Dose: 40 mg Hydralazine HCl (Apresoline) 50 mg PO BID [facility] Last Admin: 12/31/18 09:24 Dose: 50 mg Acyclovir 500 mg/ Sodium (Chloride) 100 mls @ 100 mls/hr IV TTS [facility]; Protocol Dexmedetomidine HCl (Precedex 400mcg/100ml) 400 mcg in 100 mls @ 3.334 mls/hr IV .Q24H PRN; Protocol PRN Reason: Agitation Last Admin: 12/31/18 08:00 Dose: 0.2 mcg/kg/hr, 3.334 mls/hr Acyclovir 500 mg/ Sodium (Chloride) 100 mls @ 100 mls/hr IV Q24H [facility]; Protocol Losartan Potassium (Cozaar) 100 mg PO DAILY [facility] Last Admin: 12/31/18 09:22 Dose: 100 mg Metoprolol Tartrate (Lopressor) 50 mg PO BID [facility] Last Admin: 12/31/18 09:23 Dose: 50 mg Midazolam HCl (Versed Inj) 2 mg IVP Q4 PRN PRN Reason: Agitation Nitroglycerin (Nitro-Bid 2% Oint) 1 ea TOP Q6H [facility] Last Admin: 12/31/18 05:48 Dose: 1 ea Pantoprazole Sodium (Protonix Ec Tab) 40 mg PO ACB [facility] Last Admin: 12/31/18 07:56 Dose: 40 mg Prednisone (Prednisone Tab) 20 mg PO BID [facility] Last Admin: 12/31/18 09:23 Dose: 20 mg - Labs Labs: 12/31/18 10:50 12/30/18 14:00 - Constitutional Appears: Non-toxic - Head Exam Head Exam: NORMAL INSPECTION, NORMOCEPHALIC Additional comments: connected to VEEG - Eye Exam Eye Exam: EOMI, Normal appearance, PERRL. absent: Nystagmus Pupil Exam: NORMAL ACCOMODATION, PERRL - ENT Exam ENT Exam: Mucous Membranes Moist - Neck Exam Neck Exam: Full ROM, Normal Inspection - Respiratory Exam Respiratory Exam: NORMAL BREATHING PATTERN - GI/Abdominal Exam GI & Abdominal Exam: Soft - Extremities Exam Extremities Exam: absent: Full ROM Additional comments: B/l soft wrist restraints on; limited ROM due to this. 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 B/l soft wrist restraints on; limited ROM due to this. 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 Toes down going b/l Difficulty in eliciting patellar reflexes b/l - Psychiatric Exam Additional comments: alert, verbal, able to respond and follow commands - Skin Skin Exam: Normal Color Assessment and Plan (1) Altered mental state Assessment & Plan: Imaging Reviewed: -MRI Brain (12/30/18): 1. Suboptimal diagnostic quality due to motion degraded images. Asymmetric signal abnormality in the right inferior perisylvian cortex and right medial temporal lobe. 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 Please correlate with CSF analysis. MRI of the brain with intravenous contrast is recommended for further evaluation. Absence of territorial involvement mitigates against acute infarction and absence of vasogenic edema mitigates against primary neoplasm. 2. Mild chronic microangiopathic changes and mild age-related global parenchymal volume loss. -CT Head (12/30/18): No evidence of acute intracranial hemorrhage mass effect or midline shift. No significant interval change in the brain parenchyma noted since the prior study. Sphenoid and right maxillary mucosal thickening suspicious for sinusitis. -CT Head (12/27/18): Age-appropriate age related neuro degenerative findings are appreciate without definite acute intracranial pattern by standard CT criteria. Follow-up CT or MRI are available if clinically warranted. Incidental sinusitis as discussed above. -Still pending labs to r/o infectious processes -Pending LP specimen results -Continue Acyclovir IV as ordered for HSV encephalitis -VEEG in progress. Status: Acute (2) Seizure Assessment & Plan: Imaging reviewed: -VEEG (12/30/18): The First 6 hours of this Video EEG show that this is an ab normal awake and sleep video EEG. There are frequent Pled like discharges noted in the left temporal region, as well as right temporal focal slowing. There is also encephalopathy indicated by generalized slowing throughout the background. There were no clinical or subclinical seizures noted. PLEDS or periodic sharp waves can be seen post stroke, post seizure or due to herpes encephalitis. Clinical correlation is required. -MRI Brain (12/30/18): 1. Suboptimal diagnostic quality due to motion degraded images. Asymmetric signal abnormality in the right inferior perisylvian cortex and right medial temporal lobe. 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 Please correlate with CSF analysis. MRI of the brain with intravenous contrast is recommended for further evaluation. Absence of territorial involvement mitigates against acute infarction and absence of vasogenic edema mitigates against primary neoplasm. 2. Mild chronic microangiopathic changes and mild age-related global parenchymal volume loss. -CT Head (12/30/18): No evidence of acute intracranial hemorrhage mass effect or midline shift. No significant interval change in the brain parenchyma noted since the prior study. Sphenoid and right maxillary mucosal thickening suspicious for sinusitis. -CT Head (12/27/18): Age-appropriate age related neuro degenerative findings are appreciate without definite acute intracranial pattern by standard CT criteria. Follow-up CT or MRI are available if clinically warranted. Incidental sinusitis as discussed above. -VEEG in progress -Continue seizure precautions. -Continue current treatment and management -Notify neuro team of any acute change in pt's condition. Betzaida Burk DNP, [facility] Discussed with Dr. Orellana Status: Acute
[2018-12-31 11:19] LABS: ALB/GLOB RATIO 1.3 (1.1-1.8)
--- NOTE | 2018-12-31 11:28 | PN ---
DATE: 12/31/2018 REASON FOR THE CONSULTATION AND FOLLOWUP: Elevated troponin, end-stage renal disease, stage IV CKD, admitted with altered mental status. Last night, the patient had seizure while having dialysis and moved to ICU. Still very weak, lethargic, responds to the verbal stimuli or painful stimuli. is at the bedside. SUBJECTIVE: The patient is very weak, still lethargic, having EEG in progress. is at the bedside and responds to the verbal stimuli. OBJECTIVE: GENERAL: Not in apparent distress. VITAL SIGNS: Temperature afebrile, heart rate 115, and blood pressure 138/55. HEENT: PERRLA. Extraocular muscles intact. NECK: Supple. No carotid bruits or thyromegaly. CHEST: Clear to auscultation. HEART: S1 and S2, regular. ABDOMEN: Soft. EXTREMITIES: Clubbing, cyanosis negative. LABORATORY DATA: Blood workup as follows: WBC 14.5, hemoglobin 11, hematocrit 31.5, and platelet count 137. Chemistry shows sodium 130, potassium 3, chloride 97, carbon dioxide 27, anion gap of 12, BUN 33, and creatinine 2.8 as of yesterday. Today, lab is pending. 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 Echo done yesterday that showed preserved left ventricular function, moderate mitral regurgitation, mild tricuspid regurgitation, admitted initially with altered mental status, borderline troponin positive. In view of overall her condition, renal insufficiency, altered mental status, and asymptomatic, cardiac invasive workup is not progressed. The patient had yesterday a seizure episode, discussed with the , the patient is still asymptomatic. Now having EEG. Uncontrolled hypertension, we are treating as a non-ST elevation myocardial infarction, started on nitro paste, discussed with the nursing staff taking care last night. The patient is able to take p.o. but not regularly taking. So, we put clonidine patch yesterday at 3 mg. We will give IV Lopressor to control the heart rate. The patient is on p.o. Lopressor but not sure if taking or not, and we will put hydralazine IV p.r.n. for systolic more than 160. We will continue nitro paste aggressive medical treatment. No further invasive cardiac workup is planned at this time. We will follow with you. Discussed with . Mohini Calvert MD
[2018-12-31 11:36] LABS: MONOCYTE 3 % (1.0-6.0); NEUTROPHIL 97 % (50.0-70.0); PLATELET ESTIMATE LOW (NORMAL)
[2018-12-31 12:12] LABS: ERYTHROCYTE SEDIMENTATION RATE 34 mm/hr (0.0-20.0)
[2018-12-31] MEDS ORDERED: Lidocaine 1% Inj (20ml) IJ STA (13:10)
[2018-12-31] MEDS ORDERED: Vancomycin 1gm in NS 250ml 1 GM/250 ML BAG IVPB STA (13:22)
[2018-12-31] MEDS ORDERED: Acyclovir 500 MG in Sodium Chloride 0.9% 100 ML IV SCH (14:00)
[2018-12-31 14:12] LABS: FLUID TYPE SPINAL FLUID
[2018-12-31 14:34] LABS: CSF APPEARANCE CLEAR/COLORLESS (CLEAR); CSF VOLUME 3 mL (0-1)
--- NOTE | 2018-12-31 16:04 | CP.CCUPN ---
<Vega Bhakta - Last Filed: 12/31/18 16:27> CCU Subjective - Physician Review Events Since Last Encounter (Free Text): 12/31/18 16:01 No seizure activity overnight. Subjective (Free Text): 12/31/18 16:02 Pt seen and examined at bedside this morning in the ICU. Pt remains sedated and somnolent. Critical Care Time Spent (in minutes): 45 CCU Objective - Vital Signs / Intake & Output Vital Signs (Last 4 hours): Vital Signs Pulse Resp Pulse Ox 12/31/18 12:30 85 17 100 12/31/18 12:20 85 17 100 12/31/18 12:10 85 17 100 Intake and Output (Last 8hrs): Intake & Output 12/31/18 12/31/18 12/31/18 06:59 14:59 22:59 Intake Total 100 Output Total 300 Balance -200 Intake: IV 100 LEFT INNER FOREARM 100 Output: Urine 300 Urine, Voided 300 Other: # Bowel Movements 3 - Physical Exam Head: Positive for: Atraumatic, Normocephalic Extroacular Muscles: Positive for: EOMI Mouth: Positive for: Moist Mucous Membranes Neck: Positive for: Normal Range of Motion Respiratory/Chest: Positive for: Clear to Auscultation, Good Air Exchange. Negative for: Respiratory Distress, Accessory Muscle Use Cardiovascular: Positive for: Regular Rate and Rhythm, Normal S1, S2. Negative for: Murmurs Abdomen: Positive for: Tenderness, Normal Bowel Sounds. Negative for: Distention Upper Extremity: Positive for: Normal Inspection. Negative for: Cyanosis, Edema Lower Extremity: Positive for: Normal Inspection Skin: Positive for: Warm, Dry, Normal Color. Negative for: Rashes - Medications Active Medications: Active Medications Generic Name Dose Route Start Last Admin Trade Name Freq PRN Reason Stop Dose Admin Amlodipine Besylate 5 mg 12/31/18 10:00 12/31/18 09:22 Norvasc PO 5 mg DAILY BAKARI Administration Aspirin 81 mg 12/30/18 10:00 12/31/18 09:23 Ecotrin PO 81 mg DAILY BAKARI Administration Calcium Acetate 667 mg 12/27/18 18:00 12/31/18 09:15 Phoslo PO Not Given BID BAKARI Clonidine HCl 1 patch 12/30/18 11:30 12/30/18 12:07 Catapres-Tts3 0.3 Mg/24 Hr TD 1 patch Q7D@1000 BAKARI Administration Clonidine HCl 0.1 mg 12/30/18 12:34 12/31/18 02:24 Catapres PO 0.1 mg Q4H PRN Administration hypertension Furosemide 40 mg 12/27/18 15:45 12/31/18 09:21 Lasix IVP 40 mg DAILY BAKARI Administration Hydralazine HCl 50 mg 12/27/18 18:00 12/31/18 09:24 Apresoline PO 50 mg BID BAKARI Administration Dexmedetomidine HCl 400 mcg in 100 mls @ 3.334 mls/hr 12/31/18 08:15 12/31/18 08:00 Precedex 400mcg/100ml IV 0.2 mcg/kg/hr .Q24H PRN 3.334 mls/hr Agitation Administration Protocol 0.2 MCG/KG/HR Acyclovir 500 mg/ Sodium 100 mls @ 100 mls/hr 12/31/18 14:00 Chloride IV Q24H BAKARI Protocol Acetaminophen 1,000 mg in 100 mls @ 400 mls/hr 12/31/18 11:52 Ofirmev IVPB 01/02/19 11:53 Q6H PRN Temperature Losartan Potassium 100 mg 12/29/18 10:00 12/31/18 09:22 Cozaar PO 100 mg DAILY BAKARI Administration Metoprolol Tartrate 50 mg 12/27/18 18:00 12/31/18 09:23 Lopressor PO 50 mg BID BAKARI Administration Midazolam HCl 2 mg 12/31/18 08:12 Versed Inj IVP Q4 PRN Agitation Nitroglycerin 1 ea 12/29/18 18:15 12/31/18 05:48 Nitro-Bid 2% Oint TOP 1 ea Q6H BAKARI Administration Pantoprazole Sodium 40 mg 12/30/18 07:30 12/31/18 07:56 Protonix Ec Tab PO 40 mg ACB BAKARI Administration Prednisone 20 mg 12/29/18 16:49 12/31/18 09:23 Prednisone Tab PO 20 mg BID BAKARI Administration - Patient Studies Lab Studies: Microbiology Studies 12/27/18 13:45 Blood Culture - Preliminary Blood-Venous NO GROWTH AFTER 4 DAYS 12/29/18 20:52 Blood Culture - Preliminary Blood-Venous NO GROWTH AFTER 24 HOURS 12/29/18 20:52 Blood Culture - Preliminary Blood-Venous NO GROWTH AFTER 24 HOURS 12/27/18 14:50 Blood Culture - Preliminary Blood-Venous NO GROWTH AFTER 3 DAYS 12/29/18 02:55 MRSA Culture (Admit) - Final Naris MRSA NOT DETECTED Lab Studies 12/31/18 12/31/18 12/31/18 Range/Units 14:11 11:13 10:50 WBC (4.5-11.0) 10^3/uL RBC (3.5-6.1) 10^6/uL Hgb (12.0-16.0) g/dL Hct (36.0-48.0) % MCV (80.0-105.0) fl MCH (25.0-35.0) pg MCHC (31.0-37.0) g/dl RDW (11.5-14.5) % Plt Count (120.0-450.0) 10^3/uL MPV (7.0-11.0) fl Neut % (Auto) (50.0-68.0) % Lymph % (Auto) (22.0-35.0) % [place] % (Auto) (1.0-6.0) % Eos % (Auto) (1.5-5.0) % Baso % (Auto) (0.0-3.0) % Lymph # (Auto) (1.2-3.4) [place] # (Auto) (0.1-0.6) Eos # (Auto) (0.0-0.7) Baso # (Auto) (0.0-2.0) K/mm3 Absolute Neuts (auto) (1.4-6.5) Neutrophils % (Manual) (50.0-70.0) % Lymphocytes % (Manual) Monocytes % (Manual) (1.0-6.0) % Platelet Evaluation (NORMAL) ESR (0.0-20.0) mm/hr Sodium 133 (132-148) mmol/L Potassium 3.6 (3.6-5.0) mmol/L Chloride 98 (98-107) mmol/L Carbon Dioxide 28 (21-33) mmol/L Anion Gap 11 (10-20) BUN 45 H (7-21) mg/dL Creatinine 4.2 H (0.7-1.2) mg/dl Est GFR ( Amer) 13 Est GFR (Non-Af Amer) 11 POC Glucose (mg/dL) 89 (65-110) mg/dL Random Glucose 86 (70-110) mg/dL Calcium 8.0 L (8.4-10.5) mg/dL Total Bilirubin 1.0 (0.2-1.3) mg/dL AST 34 (14-36) U/L ALT 32 (7-56) U/L Alkaline Phosphatase 69 (38-126) U/L C-Reactive Protein (0.0-9.9) mg/L Total Protein 5.3 L (5.8-8.3) g/dL Albumin 3.0 (3.0-4.8) g/dL Globulin 2.3 gm/dL Albumin/Globulin Ratio 1.3 (1.1-1.8) Folate ng/mL Urine Collection Time HOURS Urine Total Volume (800-1400) mL Ur Creatinine 24 Hour (800-1800) MG/24HR Fluid Type Spinal fluid CSF Volume 3 H (0-1) mL CSF Appearance Clear/colorless (CLEAR) CSF WBC 1.0 (0.0-5.0) /uL CSF RBC 54.0 H (0.0-0.0) /uL CSF Total Cell Counted TEST NOT PERFORMED CSF Monos/Macrophages TEST NOT PERFORMED CSF Comment TEST NOT PERFORMED RPR (NONREACTIVE) Hep Bs Antigen (NEGATIVE) Hep Bs Antibody (NEGATIVE) Hep B Core IgM Ab (NEGATIVE) 12/31/18 12/31/18 12/31/18 Range/Units 10:50 08:49 07:32 WBC 8.4 D (4.5-11.0) 10^3/uL RBC 2.99 L (3.5-6.1) 10^6/uL Hgb 9.4 L (12.0-16.0) g/dL Hct 29.0 L (36.0-48.0) % MCV 97.0 (80.0-105.0) fl MCH 31.4 (25.0-35.0) pg MCHC 32.4 (31.0-37.0) g/dl RDW 20.6 H (11.5-14.5) % Plt Count 90 L (120.0-450.0) 10^3/uL MPV 10.8 (7.0-11.0) fl Neut % (Auto) 90.1 H (50.0-68.0) % Lymph % (Auto) 7.5 L (22.0-35.0) % [place] % (Auto) 2.3 (1.0-6.0) % Eos % (Auto) 0.0 L (1.5-5.0) % Baso % (Auto) 0.1 (0.0-3.0) % Lymph # (Auto) 0.6 L (1.2-3.4) [place] # (Auto) 0.2 (0.1-0.6) Eos # (Auto) 0.0 (0.0-0.7) Baso # (Auto) 0.01 (0.0-2.0) K/mm3 Absolute Neuts (auto) 7.59 H (1.4-6.5) Neutrophils % (Manual) 97 H (50.0-70.0) % Lymphocytes % (Manual) TEST NOT PERFORMED Monocytes % (Manual) 3 (1.0-6.0) % Platelet Evaluation Low (NORMAL) ESR 34 H (0.0-20.0) mm/hr Sodium (132-148) mmol/L Potassium (3.6-5.0) mmol/L Chloride (98-107) mmol/L Carbon Dioxide (21-33) mmol/L Anion Gap (10-20) BUN (7-21) mg/dL Creatinine (0.7-1.2) mg/dl Est GFR ( Amer) Est GFR (Non-Af Amer) POC Glucose (mg/dL) 90 74 (65-110) mg/dL Random Glucose (70-110) mg/dL Calcium (8.4-10.5) mg/dL Total Bilirubin (0.2-1.3) mg/dL AST (14-36) U/L ALT (7-56) U/L Alkaline Phosphatase (38-126) U/L C-Reactive Protein (0.0-9.9) mg/L Total Protein (5.8-8.3) g/dL Albumin (3.0-4.8) g/dL Globulin gm/dL Albumin/Globulin Ratio (1.1-1.8) Folate ng/mL Urine Collection Time HOURS Urine Total Volume (800-1400) mL Ur Creatinine 24 Hour (800-1800) MG/24HR Fluid Type CSF Volume (0-1) mL CSF Appearance (CLEAR) CSF WBC (0.0-5.0) /uL CSF RBC (0.0-0.0) /uL CSF Total Cell Counted CSF Monos/Macrophages CSF Comment RPR (NONREACTIVE) Hep Bs Antigen (NEGATIVE) Hep Bs Antibody (NEGATIVE) Hep B Core IgM Ab (NEGATIVE) 12/30/18 12/30/18 12/30/18 Range/Units 22:01 16:06 14:00 WBC (4.5-11.0) 10^3/uL RBC (3.5-6.1) 10^6/uL Hgb (12.0-16.0) g/dL Hct (36.0-48.0) % MCV (80.0-105.0) fl MCH (25.0-35.0) pg MCHC (31.0-37.0) g/dl RDW (11.5-14.5) % Plt Count (120.0-450.0) 10^3/uL MPV (7.0-11.0) fl Neut % (Auto) (50.0-68.0) % Lymph % (Auto) (22.0-35.0) % [place] % (Auto) (1.0-6.0) % Eos % (Auto) (1.5-5.0) % Baso % (Auto) (0.0-3.0) % Lymph # (Auto) (1.2-3.4) [place] # (Auto) (0.1-0.6) Eos # (Auto) (0.0-0.7) Baso # (Auto) (0.0-2.0) K/mm3 Absolute Neuts (auto) (1.4-6.5) Neutrophils % (Manual) (50.0-70.0) % Lymphocytes % (Manual) Monocytes % (Manual) (1.0-6.0) % Platelet Evaluation (NORMAL) ESR (0.0-20.0) mm/hr Sodium (132-148) mmol/L Potassium (3.6-5.0) mmol/L Chloride (98-107) mmol/L Carbon Dioxide (21-33) mmol/L Anion Gap (10-20) BUN (7-21) mg/dL Creatinine (0.7-1.2) mg/dl Est GFR ( Amer) Est GFR (Non-Af Amer) POC Glucose (mg/dL) 81 91 (65-110) mg/dL Random Glucose (70-110) mg/dL Calcium (8.4-10.5) mg/dL Total Bilirubin (0.2-1.3) mg/dL AST (14-36) U/L ALT (7-56) U/L Alkaline Phosphatase (38-126) U/L C-Reactive Protein (0.0-9.9) mg/L Total Protein (5.8-8.3) g/dL Albumin (3.0-4.8) g/dL Globulin gm/dL Albumin/Globulin Ratio (1.1-1.8) Folate ng/mL Urine Collection Time HOURS Urine Total Volume (800-1400) mL Ur Creatinine 24 Hour (800-1800) MG/24HR Fluid Type CSF Volume (0-1) mL CSF Appearance (CLEAR) CSF WBC (0.0-5.0) /uL CSF RBC (0.0-0.0) /uL CSF Total Cell Counted CSF Monos/Macrophages CSF Comment RPR Nonreactive (NONREACTIVE) Hep Bs Antigen (NEGATIVE) Hep Bs Antibody (NEGATIVE) Hep B Core IgM Ab (NEGATIVE) 12/30/18 12/30/18 12/30/18 Range/Units 14:00 14:00 14:00 WBC (4.5-11.0) 10^3/uL RBC (3.5-6.1) 10^6/uL Hgb (12.0-16.0) g/dL Hct (36.0-48.0) % MCV (80.0-105.0) fl MCH (25.0-35.0) pg MCHC (31.0-37.0) g/dl RDW (11.5-14.5) % Plt Count (120.0-450.0) 10^3/uL MPV (7.0-11.0) fl Neut % (Auto) (50.0-68.0) % Lymph % (Auto) (22.0-35.0) % [place] % (Auto) (1.0-6.0) % Eos % (Auto) (1.5-5.0) % Baso % (Auto) (0.0-3.0) % Lymph # (Auto) (1.2-3.4) [place] # (Auto) (0.1-0.6) Eos # (Auto) (0.0-0.7) Baso # (Auto) (0.0-2.0) K/mm3 Absolute Neuts (auto) (1.4-6.5) Neutrophils % (Manual) (50.0-70.0) % Lymphocytes % (Manual) Monocytes % (Manual) (1.0-6.0) % Platelet Evaluation (NORMAL) ESR (0.0-20.0) mm/hr Sodium (132-148) mmol/L Potassium (3.6-5.0) mmol/L Chloride (98-107) mmol/L Carbon Dioxide (21-33) mmol/L Anion Gap (10-20) BUN (7-21) mg/dL Creatinine (0.7-1.2) mg/dl Est GFR ( Amer) Est GFR (Non-Af Amer) POC Glucose (mg/dL) (65-110) mg/dL Random Glucose (70-110) mg/dL Calcium (8.4-10.5) mg/dL Total Bilirubin (0.2-1.3) mg/dL AST (14-36) U/L ALT (7-56) U/L Alkaline Phosphatase (38-126) U/L C-Reactive Protein 17.00 H (0.0-9.9) mg/L Total Protein (5.8-8.3) g/dL Albumin (3.0-4.8) g/dL Globulin gm/dL Albumin/Globulin Ratio (1.1-1.8) Folate 12.6 ng/mL Urine Collection Time 24 HOURS Urine Total Volume 1400 (800-1400) mL Ur Creatinine 24 Hour 476.0 L (800-1800) MG/24HR Fluid Type CSF Volume (0-1) mL CSF Appearance (CLEAR) CSF WBC (0.0-5.0) /uL CSF RBC (0.0-0.0) /uL CSF Total Cell Counted CSF Monos/Macrophages CSF Comment RPR (NONREACTIVE) Hep Bs Antigen (NEGATIVE) Hep Bs Antibody (NEGATIVE) Hep B Core IgM Ab (NEGATIVE) 12/30/18 12/30/1819 Range/Units 13:10 11:30 11:30 WBC (4.5-11.0) 10^3/uL RBC (3.5-6.1) 10^6/uL Hgb (12.0-16.0) g/dL Hct (36.0-48.0) % MCV (80.0-105.0) fl MCH (25.0-35.0) pg MCHC (31.0-37.0) g/dl RDW (11.5-14.5) % Plt Count (120.0-450.0) 10^3/uL MPV (7.0-11.0) fl Neut % (Auto) (50.0-68.0) % Lymph % (Auto) (22.0-35.0) % [place] % (Auto) (1.0-6.0) % Eos % (Auto) (1.5-5.0) % Baso % (Auto) (0.0-3.0) % Lymph # (Auto) (1.2-3.4) [place] # (Auto) (0.1-0.6) Eos # (Auto) (0.0-0.7) Baso # (Auto) (0.0-2.0) K/mm3 Absolute Neuts (auto) (1.4-6.5) Neutrophils % (Manual) (50.0-70.0) % Lymphocytes % (Manual) Monocytes % (Manual) (1.0-6.0) % Platelet Evaluation (NORMAL) ESR 25 H (0.0-20.0) mm/hr Sodium (132-148) mmol/L Potassium (3.6-5.0) mmol/L Chloride (98-107) mmol/L Carbon Dioxide (21-33) mmol/L Anion Gap (10-20) BUN (7-21) mg/dL Creatinine (0.7-1.2) mg/dl Est GFR ( Amer) Est GFR (Non-Af Amer) POC Glucose (mg/dL) (65-110) mg/dL Random Glucose (70-110) mg/dL Calcium (8.4-10.5) mg/dL Total Bilirubin (0.2-1.3) mg/dL AST (14-36) U/L ALT (7-56) U/L Alkaline Phosphatase (38-126) U/L C-Reactive Protein (0.0-9.9) mg/L Total Protein (5.8-8.3) g/dL Albumin (3.0-4.8) g/dL Globulin gm/dL Albumin/Globulin Ratio (1.1-1.8) Folate ng/mL Urine Collection Time HOURS Urine Total Volume (800-1400) mL Ur Creatinine 24 Hour (800-1800) MG/24HR Fluid Type CSF Volume (0-1) mL CSF Appearance (CLEAR) CSF WBC (0.0-5.0) /uL CSF RBC (0.0-0.0) /uL CSF Total Cell Counted CSF Monos/Macrophages CSF Comment RPR (NONREACTIVE) Hep Bs Antigen Negative (NEGATIVE) Hep Bs Antibody Positive (NEGATIVE) Hep B Core IgM Ab Negative (NEGATIVE) Laboratory Results - last 24 hr 12/30/18 12/30/18 12/30/18 11:30 11:30 13:10 WBC RBC Hgb Hct MCV MCH MCHC RDW Plt Count MPV Neut % (Auto) Lymph % (Auto) [place] % (Auto) Eos % (Auto) Baso % (Auto) Lymph # (Auto) [place] # (Auto) Eos # (Auto) Baso # (Auto) Absolute Neuts (auto) Neutrophils % (Manual) Lymphocytes % (Manual) Monocytes % (Manual) Platelet Evaluation ESR 25 H Sodium Potassium Chloride Carbon Dioxide Anion Gap BUN Creatinine Est GFR ( Amer) Est GFR (Non-Af Amer) POC Glucose (mg/dL) Random Glucose Calcium Total Bilirubin AST ALT Alkaline Phosphatase C-Reactive Protein Total Protein Albumin Globulin Albumin/Globulin Ratio Folate Urine Collection Time Urine Total Volume Ur Creatinine 24 Hour Fluid Type CSF Volume CSF Appearance CSF WBC CSF RBC CSF Total Cell Counted CSF Monos/Macrophages CSF Comment RPR Hep Bs Antigen Negative Hep Bs Antibody Positive Hep B Core IgM Ab Negative 12/30/18 12/30/18 12/30/18 14:00 14:00 14:00 WBC RBC Hgb Hct MCV MCH MCHC RDW Plt Count MPV Neut % (Auto) Lymph % (Auto) [place] % (Auto) Eos % (Auto) Baso % (Auto) Lymph # (Auto) [place] # (Auto) Eos # (Auto) Baso # (Auto) Absolute Neuts (auto) Neutrophils % (Manual) Lymphocytes % (Manual) Monocytes % (Manual) Platelet Evaluation ESR Sodium Potassium Chloride Carbon Dioxide Anion Gap BUN Creatinine Est GFR ( Amer) Est GFR (Non-Af Amer) POC Glucose (mg/dL) Random Glucose Calcium Total Bilirubin AST ALT Alkaline Phosphatase C-Reactive Protein 17.00 H Total Protein Albumin Globulin Albumin/Globulin Ratio Folate 12.6 Urine Collection Time 24 Urine Total Volume 1400 Ur Creatinine 24 Hour 476.0 L Fluid Type CSF Volume CSF Appearance CSF WBC CSF RBC CSF Total Cell Counted CSF Monos/Macrophages CSF Comment RPR Hep Bs Antigen Hep Bs Antibody Hep B Core IgM Ab 12/30/18 12/30/18 12/30/18 14:00 16:06 22:01 WBC RBC Hgb Hct MCV MCH MCHC RDW Plt Count MPV Neut % (Auto) Lymph % (Auto) [place] % (Auto) Eos % (Auto) Baso % (Auto) Lymph # (Auto) [place] # (Auto) Eos # (Auto) Baso # (Auto) Absolute Neuts (auto) Neutrophils % (Manual) Lymphocytes % (Manual) Monocytes % (Manual) Platelet Evaluation ESR Sodium Potassium Chloride Carbon Dioxide Anion Gap BUN Creatinine Est GFR ( Amer) Est GFR (Non-Af Amer) POC Glucose (mg/dL) 91 81 Random Glucose Calcium Total Bilirubin AST ALT Alkaline Phosphatase C-Reactive Protein Total Protein Albumin Globulin Albumin/Globulin Ratio Folate Urine Collection Time Urine Total Volume Ur Creatinine 24 Hour Fluid Type CSF Volume CSF Appearance CSF WBC CSF RBC CSF Total Cell Counted CSF Monos/Macrophages CSF Comment RPR Nonreactive Hep Bs Antigen Hep Bs Antibody Hep B Core IgM Ab 12/31/18 12/31/18 12/31/18 07:32 08:49 10:50 WBC 8.4 D RBC 2.99 L Hgb 9.4 L Hct 29.0 L MCV 97.0 MCH 31.4 MCHC 32.4 RDW 20.6 H Plt Count 90 L MPV 10.8 Neut % (Auto) 90.1 H Lymph % (Auto) 7.5 L [place] % (Auto) 2.3 Eos % (Auto) 0.0 L Baso % (Auto) 0.1 Lymph # (Auto) 0.6 L [place] # (Auto) 0.2 Eos # (Auto) 0.0 Baso # (Auto) 0.01 Absolute Neuts (auto) 7.59 H Neutrophils % (Manual) 97 H Lymphocytes % (Manual) TEST NOT PERFORMED Monocytes % (Manual) 3 Platelet Evaluation Low ESR 34 H Sodium Potassium Chloride Carbon Dioxide Anion Gap BUN Creatinine Est GFR ( Amer) Est GFR (Non-Af Amer) POC Glucose (mg/dL) 74 90 Random Glucose Calcium Total Bilirubin AST ALT Alkaline Phosphatase C-Reactive Protein Total Protein Albumin Globulin Albumin/Globulin Ratio Folate Urine Collection Time Urine Total Volume Ur Creatinine 24 Hour Fluid Type CSF Volume CSF Appearance CSF WBC CSF RBC CSF Total Cell Counted CSF Monos/Macrophages CSF Comment RPR Hep Bs Antigen Hep Bs Antibody Hep B Core IgM Ab 12/31/18 12/31/18 12/31/18 10:50 11:13 14:11 WBC RBC Hgb Hct MCV MCH MCHC RDW Plt Count MPV Neut % (Auto) Lymph % (Auto) [place] % (Auto) Eos % (Auto) Baso % (Auto) Lymph # (Auto) [place] # (Auto) Eos # (Auto) Baso # (Auto) Absolute Neuts (auto) Neutrophils % (Manual) Lymphocytes % (Manual) Monocytes % (Manual) Platelet Evaluation ESR Sodium 133 Potassium 3.6 Chloride 98 Carbon Dioxide 28 Anion Gap 11 BUN 45 H Creatinine 4.2 H Est GFR ( Amer) 13 Est GFR (Non-Af Amer) 11 POC Glucose (mg/dL) 89 Random Glucose 86 Calcium 8.0 L Total Bilirubin 1.0 AST 34 ALT 32 Alkaline Phosphatase 69 C-Reactive Protein Total Protein 5.3 L Albumin 3.0 Globulin 2.3 Albumin/Globulin Ratio 1.3 Folate Urine Collection Time Urine Total Volume Ur Creatinine 24 Hour Fluid Type Spinal fluid CSF Volume 3 H CSF Appearance Clear/colorless CSF WBC 1.0 CSF RBC 54.0 H CSF Total Cell Counted TEST NOT PERFORMED CSF Monos/Macrophages TEST NOT PERFORMED CSF Comment TEST NOT PERFORMED RPR Hep Bs Antigen Hep Bs Antibody Hep B Core IgM Ab Radiology Impressions: Radiology Impressions Brain MRI 12/30/18 14:36 IMPRESSION: 1. Suboptimal diagnostic quality due to motion degraded images. Asymmetric signal abnormality in the right inferior perisylvian cortex and right medial temporal lobe. 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 Please correlate with CSF analysis. MRI of the brain with intravenous contrast is recommended for further evaluation. Absence of territorial involvement mitigates against acute infarction and absence of vasogenic edema mitigates against primary neoplasm. 2. Mild chronic microangiopathic changes and mild age-related global parenchymal volume loss. Critical Care Progress Note - Nutrition Nutrition: Nutrition Category Date Time Status Renal Diet [DIET] Diets 12/27/18 Dinner Ordered Assessment/Plan - Assessment and Plan (Free Text) Assessment: Pt is a 68yo female with a PMH of [place], ESRD on HD, HTN taking steroids chronically who was admitted for confusion, AMS and later experienced new onset seizures. 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 Involvement of parietal lobe and temporal lobe. - Video EEG: abnormal awake and sleep video EEG. Frequent Pled like discharges noted in the left temporal region. Encephalopathy indicated by slowing throughout background. No seizures noted. - precedex, versed - Neuro consulted, Dr Reyna Earl - Maintain MAP >65 - trop 0.17, 0.16, 0.32, 0.29, 0.25, 0.26 - amlodipine, ASA, clonidine, lasix, hydralazine, cozaar, metoprolol, - Cardio consulted, Dr Enrike Douglas - Maintain O2 sat >92 - Chest CT shows possible multifocal PNA GI - pantoprazole Heme - monitor H/H - Hgb 9.4 Nephro - Cr 4.2 - BUN 45 - continue to monitor electrolytes Endo - maintain euglycemia ID - no leukocytosis - vanc, acyclovir - ID consulted Pt seen, examined, assessment and plan discussed with Dr Marcell Bhakta PGY1 - Date & Time Date: 12/31/18 Time: 07:00 <Garrett Faith - Last Filed: 12/31/18 18:05> CCU Objective - Vital Signs / Intake & Output Vital Signs (Last 4 hours): Vital Signs Temp 12/31/18 16:00 98.1 F Intake and Output (Last 8hrs): Intake & Output 12/31/18 12/31/18 12/31/18 06:59 14:59 22:59 Intake Total 100 Output Total 300 Balance -200 Intake: IV 100 LEFT INNER FOREARM 100 Output: Urine 300 Urine, Voided 300 Other: # Bowel Movements 3 - Medications Active Medications: Active Medications Generic Name Dose Route Start Last Admin Trade Name Freq PRN Reason Stop Dose Admin Amlodipine Besylate 5 mg 12/31/18 10:00 12/31/18 09:22 Norvasc PO 5 mg DAILY BAKARI Administration Aspirin 81 mg 12/30/18 10:00 12/31/18 09:23 Ecotrin PO 81 mg DAILY BAKARI Administration Calcium Acetate 667 mg 12/27/18 18:00 12/31/18 17:38 Phoslo PO Not Given BID BAKARI Clonidine HCl 1 patch 12/30/18 11:30 12/30/18 12:07 Catapres-Tts3 0.3 Mg/24 Hr TD 1 patch Q7D@1000 BAKARI Administration Clonidine HCl 0.1 mg 12/30/18 12:34 12/31/18 02:24 Catapres PO 0.1 mg Q4H PRN Administration hypertension Furosemide 40 mg 12/27/18 15:45 12/31/18 09:21 Lasix IVP 40 mg DAILY BAKARI Administration Hydralazine HCl 50 mg 12/27/18 18:00 12/31/18 17:39 Apresoline PO Not Given BID [facility] Dexmedetomidine HCl 400 mcg in 100 mls @ 3.334 mls/hr 12/31/18 08:15 12/31/18 08:00 Precedex 400mcg/100ml IV 0.2 mcg/kg/hr .Q24H PRN 3.334 mls/hr Agitation Administration Protocol 0.2 MCG/KG/HR Acyclovir 500 mg/ Sodium 100 mls @ 100 mls/hr 12/31/18 14:00 12/31/18 15:00 Chloride IV 100 mls/hr Q24H BAKARI Administration Protocol Acetaminophen 1,000 mg in 100 mls @ 400 mls/hr 12/31/18 11:52 Ofirmev IVPB 01/02/19 11:53 Q6H PRN Temperature Losartan Potassium 100 mg 12/29/18 10:00 12/31/18 09:22 Cozaar PO 100 mg DAILY BAKARI Administration Metoprolol Tartrate 50 mg 12/27/18 18:00 12/31/18 17:38 Lopressor PO Not Given BID BAKARI Midazolam HCl 2 mg 12/31/18 08:12 Versed Inj IVP Q4 PRN Agitation Nitroglycerin 1 ea 12/29/18 18:15 12/31/18 17:38 Nitro-Bid 2% Oint TOP Not Given Q6H BAKARI Pantoprazole Sodium 40 mg 12/30/18 07:30 12/31/18 07:56 Protonix Ec Tab PO 40 mg ACB BAKARI Administration Prednisone 20 mg 12/29/18 16:49 12/31/18 17:37 Prednisone Tab PO 20 mg BID BAKARI Administration - Patient Studies Lab Studies: Microbiology Studies 12/27/18 14:50 Blood Culture - Preliminary Blood-Venous NO GROWTH AFTER 4 DAYS 12/27/18 13:45 Blood Culture - Preliminary Blood-Venous NO GROWTH AFTER 4 DAYS 12/29/18 20:52 Blood Culture - Preliminary Blood-Venous NO GROWTH AFTER 24 HOURS 12/29/18 20:52 Blood Culture - Preliminary Blood-Venous NO GROWTH AFTER 24 HOURS Lab Studies 12/31/18 12/31/18 12/31/18 Range/Units 16:59 14:58 14:12 WBC (4.5-11.0) 10^3/uL RBC (3.5-6.1) 10^6/uL Hgb (12.0-16.0) g/dL Hct (36.0-48.0) % MCV (80.0-105.0) fl MCH (25.0-35.0) pg MCHC (31.0-37.0) g/dl RDW (11.5-14.5) % Plt Count (120.0-450.0) 10^3/uL MPV (7.0-11.0) fl Neut % (Auto) (50.0-68.0) % Lymph % (Auto) (22.0-35.0) % [place] % (Auto) (1.0-6.0) % Eos % (Auto) (1.5-5.0) % Baso % (Auto) (0.0-3.0) % Lymph # (Auto) (1.2-3.4) [place] # (Auto) (0.1-0.6) Eos # (Auto) (0.0-0.7) Baso # (Auto) (0.0-2.0) K/mm3 Absolute Neuts (auto) (1.4-6.5) Neutrophils % (Manual) (50.0-70.0) % Lymphocytes % (Manual) Monocytes % (Manual) (1.0-6.0) % Platelet Evaluation (NORMAL) ESR (0.0-20.0) mm/hr Sodium (132-148) mmol/L Potassium (3.6-5.0) mmol/L Chloride (98-107) mmol/L Carbon Dioxide (21-33) mmol/L Anion Gap (10-20) BUN (7-21) mg/dL Creatinine (0.7-1.2) mg/dl Est GFR ( Amer) Est GFR (Non-Af Amer) POC Glucose (mg/dL) 89 85 (65-110) mg/dL Random Glucose (70-110) mg/dL Calcium (8.4-10.5) mg/dL Magnesium (1.7-2.2) mg/dL Total Bilirubin (0.2-1.3) mg/dL AST (14-36) U/L ALT (7-56) U/L Alkaline Phosphatase (38-126) U/L C-Reactive Protein (0.0-9.9) mg/L Total Protein (5.8-8.3) g/dL Albumin (3.0-4.8) g/dL Globulin gm/dL Albumin/Globulin Ratio (1.1-1.8) Folate ng/mL Fluid Type CSF Volume (0-1) mL CSF Appearance (CLEAR) CSF WBC (0.0-5.0) /uL CSF RBC (0.0-0.0) /uL CSF Total Cell Counted CSF Monos/Macrophages CSF Comment CSF Glucose 39 L (40-70) mg/dL CSF Total Protein 73.0 H (12-60) mg/dL RPR (NONREACTIVE) Hep Bs Antibody (NEGATIVE) 12/31/18 12/31/18 12/31/18 Range/Units 14:11 13:03 11:13 WBC (4.5-11.0) 10^3/uL RBC (3.5-6.1) 10^6/uL Hgb (12.0-16.0) g/dL Hct (36.0-48.0) % MCV (80.0-105.0) fl MCH (25.0-35.0) pg MCHC (31.0-37.0) g/dl RDW (11.5-14.5) % Plt Count (120.0-450.0) 10^3/uL MPV (7.0-11.0) fl Neut % (Auto) (50.0-68.0) % Lymph % (Auto) (22.0-35.0) % [place] % (Auto) (1.0-6.0) % Eos % (Auto) (1.5-5.0) % Baso % (Auto) (0.0-3.0) % Lymph # (Auto) (1.2-3.4) [place] # (Auto) (0.1-0.6) Eos # (Auto) (0.0-0.7) Baso # (Auto) (0.0-2.0) K/mm3 Absolute Neuts (auto) (1.4-6.5) Neutrophils % (Manual) (50.0-70.0) % Lymphocytes % (Manual) Monocytes % (Manual) (1.0-6.0) % Platelet Evaluation (NORMAL) ESR (0.0-20.0) mm/hr Sodium (132-148) mmol/L Potassium (3.6-5.0) mmol/L Chloride (98-107) mmol/L Carbon Dioxide (21-33) mmol/L Anion Gap (10-20) BUN (7-21) mg/dL Creatinine (0.7-1.2) mg/dl Est GFR ( Amer) Est GFR (Non-Af Amer) POC Glucose (mg/dL) 76 89 (65-110) mg/dL Random Glucose (70-110) mg/dL Calcium (8.4-10.5) mg/dL Magnesium (1.7-2.2) mg/dL Total Bilirubin (0.2-1.3) mg/dL AST (14-36) U/L ALT (7-56) U/L Alkaline Phosphatase (38-126) U/L C-Reactive Protein (0.0-9.9) mg/L Total Protein (5.8-8.3) g/dL Albumin (3.0-4.8) g/dL Globulin gm/dL Albumin/Globulin Ratio (1.1-1.8) Folate ng/mL Fluid Type Spinal fluid CSF Volume 3 H (0-1) mL CSF Appearance Clear/colorless (CLEAR) CSF WBC 1.0 (0.0-5.0) /uL CSF RBC 54.0 H (0.0-0.0) /uL CSF Total Cell Counted TEST NOT PERFORMED CSF Monos/Macrophages TEST NOT PERFORMED CSF Comment TEST NOT PERFORMED CSF Glucose (40-70) mg/dL CSF Total Protein (12-60) mg/dL RPR (NONREACTIVE) Hep Bs Antibody (NEGATIVE) 12/31/18 12/31/18 12/31/18 Range/Units 10:50 10:50 10:50 WBC 8.4 D (4.5-11.0) 10^3/uL RBC 2.99 L (3.5-6.1) 10^6/uL Hgb 9.4 L (12.0-16.0) g/dL Hct 29.0 L (36.0-48.0) % MCV 97.0 (80.0-105.0) fl MCH 31.4 (25.0-35.0) pg MCHC 32.4 (31.0-37.0) g/dl RDW 20.6 H (11.5-14.5) % Plt Count 90 L (120.0-450.0) 10^3/uL MPV 10.8 (7.0-11.0) fl Neut % (Auto) 90.1 H (50.0-68.0) % Lymph % (Auto) 7.5 L (22.0-35.0) % [place] % (Auto) 2.3 (1.0-6.0) % Eos % (Auto) 0.0 L (1.5-5.0) % Baso % (Auto) 0.1 (0.0-3.0) % Lymph # (Auto) 0.6 L (1.2-3.4) [place] # (Auto) 0.2 (0.1-0.6) Eos # (Auto) 0.0 (0.0-0.7) Baso # (Auto) 0.01 (0.0-2.0) K/mm3 Absolute Neuts (auto) 7.59 H (1.4-6.5) Neutrophils % (Manual) 97 H (50.0-70.0) % Lymphocytes % (Manual) TEST NOT PERFORMED Monocytes % (Manual) 3 (1.0-6.0) % Platelet Evaluation Low (NORMAL) ESR 34 H (0.0-20.0) mm/hr Sodium 133 (132-148) mmol/L Potassium 3.6 (3.6-5.0) mmol/L Chloride 98 (98-107) mmol/L Carbon Dioxide 28 (21-33) mmol/L Anion Gap 11 (10-20) BUN 45 H (7-21) mg/dL Creatinine 4.2 H (0.7-1.2) mg/dl Est GFR ( Amer) 13 Est GFR (Non-Af Amer) 11 POC Glucose (mg/dL) (65-110) mg/dL Random Glucose 86 (70-110) mg/dL Calcium 8.0 L (8.4-10.5) mg/dL Magnesium 1.9 (1.7-2.2) mg/dL Total Bilirubin 1.0 (0.2-1.3) mg/dL AST 34 (14-36) U/L ALT 32 (7-56) U/L Alkaline Phosphatase 69 (38-126) U/L C-Reactive Protein (0.0-9.9) mg/L Total Protein 5.3 L (5.8-8.3) g/dL Albumin 3.0 (3.0-4.8) g/dL Globulin 2.3 gm/dL Albumin/Globulin Ratio 1.3 (1.1-1.8) Folate ng/mL Fluid Type CSF Volume (0-1) mL CSF Appearance (CLEAR) CSF WBC (0.0-5.0) /uL CSF RBC (0.0-0.0) /uL CSF Total Cell Counted CSF Monos/Macrophages CSF Comment CSF Glucose (40-70) mg/dL CSF Total Protein (12-60) mg/dL RPR (NONREACTIVE) Hep Bs Antibody (NEGATIVE) 12/31/18 12/31/18 12/30/18 Range/Units 08:49 07:32 22:01 WBC (4.5-11.0) 10^3/uL RBC (3.5-6.1) 10^6/uL Hgb (12.0-16.0) g/dL Hct (36.0-48.0) % MCV (80.0-105.0) fl MCH (25.0-35.0) pg MCHC (31.0-37.0) g/dl RDW (11.5-14.5) % Plt Count (120.0-450.0) 10^3/uL MPV (7.0-11.0) fl Neut % (Auto) (50.0-68.0) % Lymph % (Auto) (22.0-35.0) % [place] % (Auto) (1.0-6.0) % Eos % (Auto) (1.5-5.0) % Baso % (Auto) (0.0-3.0) % Lymph # (Auto) (1.2-3.4) [place] # (Auto) (0.1-0.6) Eos # (Auto) (0.0-0.7) Baso # (Auto) (0.0-2.0) K/mm3 Absolute Neuts (auto) (1.4-6.5) Neutrophils % (Manual) (50.0-70.0) % Lymphocytes % (Manual) Monocytes % (Manual) (1.0-6.0) % Platelet Evaluation (NORMAL) ESR (0.0-20.0) mm/hr Sodium (132-148) mmol/L Potassium (3.6-5.0) mmol/L Chloride (98-107) mmol/L Carbon Dioxide (21-33) mmol/L Anion Gap (10-20) BUN (7-21) mg/dL Creatinine (0.7-1.2) mg/dl Est GFR ( Amer) Est GFR (Non-Af Amer) POC Glucose (mg/dL) 90 74 81 (65-110) mg/dL Random Glucose (70-110) mg/dL Calcium (8.4-10.5) mg/dL Magnesium (1.7-2.2) mg/dL Total Bilirubin (0.2-1.3) mg/dL AST (14-36) U/L ALT (7-56) U/L Alkaline Phosphatase (38-126) U/L C-Reactive Protein (0.0-9.9) mg/L Total Protein (5.8-8.3) g/dL Albumin (3.0-4.8) g/dL Globulin gm/dL Albumin/Globulin Ratio (1.1-1.8) Folate ng/mL Fluid Type CSF Volume (0-1) mL CSF Appearance (CLEAR) CSF WBC (0.0-5.0) /uL CSF RBC (0.0-0.0) /uL CSF Total Cell Counted CSF Monos/Macrophages CSF Comment CSF Glucose (40-70) mg/dL CSF Total Protein (12-60) mg/dL RPR (NONREACTIVE) Hep Bs Antibody (NEGATIVE) 12/30/18 12/30/18 12/30/18 Range/Units 16:06 14:00 14:00 WBC (4.5-11.0) 10^3/uL RBC (3.5-6.1) 10^6/uL Hgb (12.0-16.0) g/dL Hct (36.0-48.0) % MCV (80.0-105.0) fl MCH (25.0-35.0) pg MCHC (31.0-37.0) g/dl RDW (11.5-14.5) % Plt Count (120.0-450.0) 10^3/uL MPV (7.0-11.0) fl Neut % (Auto) (50.0-68.0) % Lymph % (Auto) (22.0-35.0) % [place] % (Auto) (1.0-6.0) % Eos % (Auto) (1.5-5.0) % Baso % (Auto) (0.0-3.0) % Lymph # (Auto) (1.2-3.4) [place] # (Auto) (0.1-0.6) Eos # (Auto) (0.0-0.7) Baso # (Auto) (0.0-2.0) K/mm3 Absolute Neuts (auto) (1.4-6.5) Neutrophils % (Manual) (50.0-70.0) % Lymphocytes % (Manual) Monocytes % (Manual) (1.0-6.0) % Platelet Evaluation (NORMAL) ESR (0.0-20.0) mm/hr Sodium (132-148) mmol/L Potassium (3.6-5.0) mmol/L Chloride (98-107) mmol/L Carbon Dioxide (21-33) mmol/L Anion Gap (10-20) BUN (7-21) mg/dL Creatinine (0.7-1.2) mg/dl Est GFR ( Amer) Est GFR (Non-Af Amer) POC Glucose (mg/dL) 91 (65-110) mg/dL Random Glucose (70-110) mg/dL Calcium (8.4-10.5) mg/dL Magnesium (1.7-2.2) mg/dL Total Bilirubin (0.2-1.3) mg/dL AST (14-36) U/L ALT (7-56) U/L Alkaline Phosphatase (38-126) U/L C-Reactive Protein (0.0-9.9) mg/L Total Protein (5.8-8.3) g/dL Albumin (3.0-4.8) g/dL Globulin gm/dL Albumin/Globulin Ratio (1.1-1.8) Folate 12.6 ng/mL Fluid Type CSF Volume (0-1) mL CSF Appearance (CLEAR) CSF WBC (0.0-5.0) /uL CSF RBC (0.0-0.0) /uL CSF Total Cell Counted CSF Monos/Macrophages CSF Comment CSF Glucose (40-70) mg/dL CSF Total Protein (12-60) mg/dL RPR Nonreactive (NONREACTIVE) Hep Bs Antibody (NEGATIVE) 12/30/18 12/30/18 Range/Units 14:00 11:30 WBC (4.5-11.0) 10^3/uL RBC (3.5-6.1) 10^6/uL Hgb (12.0-16.0) g/dL Hct (36.0-48.0) % MCV (80.0-105.0) fl MCH (25.0-35.0) pg MCHC (31.0-37.0) g/dl RDW (11.5-14.5) % Plt Count (120.0-450.0) 10^3/uL MPV (7.0-11.0) fl Neut % (Auto) (50.0-68.0) % Lymph % (Auto) (22.0-35.0) % [place] % (Auto) (1.0-6.0) % Eos % (Auto) (1.5-5.0) % Baso % (Auto) (0.0-3.0) % Lymph # (Auto) (1.2-3.4) [place] # (Auto) (0.1-0.6) Eos # (Auto) (0.0-0.7) Baso # (Auto) (0.0-2.0) K/mm3 Absolute Neuts (auto) (1.4-6.5) Neutrophils % (Manual) (50.0-70.0) % Lymphocytes % (Manual) Monocytes % (Manual) (1.0-6.0) % Platelet Evaluation (NORMAL) ESR (0.0-20.0) mm/hr Sodium (132-148) mmol/L Potassium (3.6-5.0) mmol/L Chloride (98-107) mmol/L Carbon Dioxide (21-33) mmol/L Anion Gap (10-20) BUN (7-21) mg/dL Creatinine (0.7-1.2) mg/dl Est GFR ( Amer) Est GFR (Non-Af Amer) POC Glucose (mg/dL) (65-110) mg/dL Random Glucose (70-110) mg/dL Calcium (8.4-10.5) mg/dL Magnesium (1.7-2.2) mg/dL Total Bilirubin (0.2-1.3) mg/dL AST (14-36) U/L ALT (7-56) U/L Alkaline Phosphatase (38-126) U/L C-Reactive Protein 17.00 H (0.0-9.9) mg/L Total Protein (5.8-8.3) g/dL Albumin (3.0-4.8) g/dL Globulin gm/dL Albumin/Globulin Ratio (1.1-1.8) Folate ng/mL Fluid Type CSF Volume (0-1) mL CSF Appearance (CLEAR) CSF WBC (0.0-5.0) /uL CSF RBC (0.0-0.0) /uL CSF Total Cell Counted CSF Monos/Macrophages CSF Comment CSF Glucose (40-70) mg/dL CSF Total Protein (12-60) mg/dL RPR (NONREACTIVE) Hep Bs Antibody Positive (NEGATIVE) Laboratory Results - last 24 hr 12/30/18 12/30/18 12/30/18 11:30 14:00 14:00 WBC RBC Hgb Hct MCV MCH MCHC RDW Plt Count MPV Neut % (Auto) Lymph % (Auto) [place] % (Auto) Eos % (Auto) Baso % (Auto) Lymph # (Auto) [place] # (Auto) Eos # (Auto) Baso # (Auto) Absolute Neuts (auto) Neutrophils % (Manual) Lymphocytes % (Manual) Monocytes % (Manual) Platelet Evaluation ESR Sodium Potassium Chloride Carbon Dioxide Anion Gap BUN Creatinine Est GFR ( Amer) Est GFR (Non-Af Amer) POC Glucose (mg/dL) Random Glucose Calcium Magnesium Total Bilirubin AST ALT Alkaline Phosphatase C-Reactive Protein 17.00 H Total Protein Albumin Globulin Albumin/Globulin Ratio Folate 12.6 Fluid Type CSF Volume CSF Appearance CSF WBC CSF RBC CSF Total Cell Counted CSF Monos/Macrophages CSF Comment CSF Glucose CSF Total Protein RPR Hep Bs Antibody Positive 12/30/18 12/30/18 12/30/18 14:00 16:06 22:01 WBC RBC Hgb Hct MCV MCH MCHC RDW Plt Count MPV Neut % (Auto) Lymph % (Auto) [place] % (Auto) Eos % (Auto) Baso % (Auto) Lymph # (Auto) [place] # (Auto) Eos # (Auto) Baso # (Auto) Absolute Neuts (auto) Neutrophils % (Manual) Lymphocytes % (Manual) Monocytes % (Manual) Platelet Evaluation ESR Sodium Potassium Chloride Carbon Dioxide Anion Gap BUN Creatinine Est GFR ( Amer) Est GFR (Non-Af Amer) POC Glucose (mg/dL) 91 81 Random Glucose Calcium Magnesium Total Bilirubin AST ALT Alkaline Phosphatase C-Reactive Protein Total Protein Albumin Globulin Albumin/Globulin Ratio Folate Fluid Type CSF Volume CSF Appearance CSF WBC CSF RBC CSF Total Cell Counted CSF Monos/Macrophages CSF Comment CSF Glucose CSF Total Protein RPR Nonreactive Hep Bs Antibody 12/31/18 12/31/18 12/31/18 07:32 08:49 10:50 WBC 8.4 D RBC 2.99 L Hgb 9.4 L Hct 29.0 L MCV 97.0 MCH 31.4 MCHC 32.4 RDW 20.6 H Plt Count 90 L MPV 10.8 Neut % (Auto) 90.1 H Lymph % (Auto) 7.5 L [place] % (Auto) 2.3 Eos % (Auto) 0.0 L Baso % (Auto) 0.1 Lymph # (Auto) 0.6 L [place] # (Auto) 0.2 Eos # (Auto) 0.0 Baso # (Auto) 0.01 Absolute Neuts (auto) 7.59 H Neutrophils % (Manual) 97 H Lymphocytes % (Manual) TEST NOT PERFORMED Monocytes % (Manual) 3 Platelet Evaluation Low ESR 34 H Sodium Potassium Chloride Carbon Dioxide Anion Gap BUN Creatinine Est GFR ( Amer) Est GFR (Non-Af Amer) POC Glucose (mg/dL) 74 90 Random Glucose Calcium Magnesium Total Bilirubin AST ALT Alkaline Phosphatase C-Reactive Protein Total Protein Albumin Globulin Albumin/Globulin Ratio Folate Fluid Type CSF Volume CSF Appearance CSF WBC CSF RBC CSF Total Cell Counted CSF Monos/Macrophages CSF Comment CSF Glucose CSF Total Protein RPR Hep Bs Antibody 12/31/18 12/31/18 12/31/18 10:50 10:50 11:13 WBC RBC Hgb Hct MCV MCH MCHC RDW Plt Count MPV Neut % (Auto) Lymph % (Auto) [place] % (Auto) Eos % (Auto) Baso % (Auto) Lymph # (Auto) [place] # (Auto) Eos # (Auto) Baso # (Auto) Absolute Neuts (auto) Neutrophils % (Manual) Lymphocytes % (Manual) Monocytes % (Manual) Platelet Evaluation ESR Sodium 133 Potassium 3.6 Chloride 98 Carbon Dioxide 28 Anion Gap 11 BUN 45 H Creatinine 4.2 H Est GFR ( Amer) 13 Est GFR (Non-Af Amer) 11 POC Glucose (mg/dL) 89 Random Glucose 86 Calcium 8.0 L Magnesium 1.9 Total Bilirubin 1.0 AST 34 ALT 32 Alkaline Phosphatase 69 C-Reactive Protein Total Protein 5.3 L Albumin 3.0 Globulin 2.3 Albumin/Globulin Ratio 1.3 Folate Fluid Type CSF Volume CSF Appearance CSF WBC CSF RBC CSF Total Cell Counted CSF Monos/Macrophages CSF Comment CSF Glucose CSF Total Protein RPR Hep Bs Antibody 12/31/18 12/31/18 12/31/18 13:03 14:11 14:12 WBC RBC Hgb Hct MCV MCH MCHC RDW Plt Count MPV Neut % (Auto) Lymph % (Auto) [place] % (Auto) Eos % (Auto) Baso % (Auto) Lymph # (Auto) [place] # (Auto) Eos # (Auto) Baso # (Auto) Absolute Neuts (auto) Neutrophils % (Manual) Lymphocytes % (Manual) Monocytes % (Manual) Platelet Evaluation ESR Sodium Potassium Chloride Carbon Dioxide Anion Gap BUN Creatinine Est GFR ( Amer) Est GFR (Non-Af Amer) POC Glucose (mg/dL) 76 Random Glucose Calcium Magnesium Total Bilirubin AST ALT Alkaline Phosphatase C-Reactive Protein Total Protein Albumin Globulin Albumin/Globulin Ratio Folate Fluid Type Spinal fluid CSF Volume 3 H CSF Appearance Clear/colorless CSF WBC 1.0 CSF RBC 54.0 H CSF Total Cell Counted TEST NOT PERFORMED CSF Monos/Macrophages TEST NOT PERFORMED CSF Comment TEST NOT PERFORMED CSF Glucose 39 L CSF Total Protein 73.0 H RPR Hep Bs Antibody 12/31/18 12/31/18 14:58 16:59 WBC RBC Hgb Hct MCV MCH MCHC RDW Plt Count MPV Neut % (Auto) Lymph % (Auto) [place] % (Auto) Eos % (Auto) Baso % (Auto) Lymph # (Auto) [place] # (Auto) Eos # (Auto) Baso # (Auto) Absolute Neuts (auto) Neutrophils % (Manual) Lymphocytes % (Manual) Monocytes % (Manual) Platelet Evaluation ESR Sodium Potassium Chloride Carbon Dioxide Anion Gap BUN Creatinine Est GFR ( Amer) Est GFR (Non-Af Amer) POC Glucose (mg/dL) 85 89 Random Glucose Calcium Magnesium Total Bilirubin AST ALT Alkaline Phosphatase C-Reactive Protein Total Protein Albumin Globulin Albumin/Globulin Ratio Folate Fluid Type CSF Volume CSF Appearance CSF WBC CSF RBC CSF Total Cell Counted CSF Monos/Macrophages CSF Comment CSF Glucose CSF Total Protein RPR Hep Bs Antibody Critical Care Progress Note - Nutrition Nutrition: Nutrition Category Date Time Status Renal Diet [DIET] Diets 12/27/18 Dinner Ordered Attending/Attestation - Attestation I have personally seen and examined this patient.: Yes I have fully participated in the care of the patient.: Yes I have reviewed all pertinent clinical information: Yes Notes (Text): 12/31/18 18:[address] Faith note
--- NOTE | 2018-12-31 16:07 | CP.PCM.PN ---
<Tl Gaxiola - Last Filed: 12/31/18 16:03> Subjective - Date & Time of Evaluation Date of Evaluation: 12/31/18 Time of Evaluation: 09:35 - Subjective Subjective: Tl Gaxiola D.O. PGY-3, Internal Medicine Resident, Infectious Disease Progress Note 68-year-old female with past medical history of breast cancer, hypertension, Daphnie's granulomatosis, who presented for planes of tachycardia, found to have sepsis and healthcare associated pneumonia. Infectious disease consultation requested. Spittle course complicated now by change in mental status concern for herpes encephalitis. Patient was seen and examined at bedside. Significant other at bedside. Patient continues to be very confused. Thinks that it is 1969 Objective - Vital Signs/Intake and Output Vital Signs (last 24 hours): Temp Pulse Resp BP Pulse Ox 101.8 F H 85 17 135/60 100 12/31/18 12:00 12/31/18 12:30 12/31/18 12:30 12/31/18 12:00 12/31/18 12:30 Intake and Output: 12/31/18 12/31/18 06:59 18:59 Intake Total 100 Output Total 300 Balance -200 - Medications Medications: Current Medications Amlodipine Besylate (Norvasc) 5 mg PO DAILY [facility] Last Admin: 12/31/18 09:22 Dose: 5 mg Aspirin (Ecotrin) 81 mg PO DAILY [facility] Last Admin: 12/31/18 09:23 Dose: 81 mg Calcium Acetate (Phoslo) 667 mg PO BID [facility] Last Admin: 12/31/18 09:15 Dose: Not Given Clonidine HCl (Catapres-Tts3 0.3 Mg/24 Hr) 1 patch TD Q7D@1000 [facility] Last Admin: 12/30/18 12:07 Dose: 1 patch Clonidine HCl (Catapres) 0.1 mg PO Q4H PRN PRN Reason: hypertension Last Admin: 12/31/18 02:24 Dose: 0.1 mg Furosemide (Lasix) 40 mg IVP DAILY [facility] Last Admin: 12/31/18 09:21 Dose: 40 mg Hydralazine HCl (Apresoline) 50 mg PO BID [facility] Last Admin: 12/31/18 09:24 Dose: 50 mg Dexmedetomidine HCl (Precedex 400mcg/100ml) 400 mcg in 100 mls @ 3.334 mls/hr IV .Q24H PRN; Protocol PRN Reason: Agitation Last Admin: 12/31/18 08:00 Dose: 0.2 mcg/kg/hr, 3.334 mls/hr Acyclovir 500 mg/ Sodium (Chloride) 100 mls @ 100 mls/hr IV Q24H BAKARI; Protocol Acetaminophen (Ofirmev) 1,000 mg in 100 mls @ 400 mls/hr IVPB Q6H PRN PRN Reason: Temperature Stop: 01/02/19 11:53 Losartan Potassium (Cozaar) 100 mg PO DAILY [facility] Last Admin: 12/31/18 09:22 Dose: 100 mg Metoprolol Tartrate (Lopressor) 50 mg PO BID [facility] Last Admin: 12/31/18 09:23 Dose: 50 mg Midazolam HCl (Versed Inj) 2 mg IVP Q4 PRN PRN Reason: Agitation Nitroglycerin (Nitro-Bid 2% Oint) 1 ea TOP Q6H [facility] Last Admin: 12/31/18 05:48 Dose: 1 ea Pantoprazole Sodium (Protonix Ec Tab) 40 mg PO ACB [facility] Last Admin: 12/31/18 07:56 Dose: 40 mg Prednisone (Prednisone Tab) 20 mg PO BID [facility] Last Admin: 12/31/18 09:23 Dose: 20 mg - Labs Labs: 12/31/18 10:50 12/31/18 10:50 - Constitutional Appears: Non-toxic, No Acute Distress, Confused - Head Exam Additional comments: wearing cap covering EEG connectors - Eye Exam Eye Exam: EOMI. absent: Scleral icterus - ENT Exam ENT Exam: Mucous Membranes Moist - Neck Exam Neck Exam: Normal Inspection - Respiratory Exam Respiratory Exam: absent: Wheezes - Cardiovascular Exam Cardiovascular Exam: Tachycardia, +S1, +S2 - GI/Abdominal Exam GI & Abdominal Exam: Soft. absent: Tenderness - Neurological Exam Neurological Exam: Alert, Awake Additional comments: confused - Skin Skin Exam: Dry, Warm Assessment and Plan - Assessment and Plan (Free Text) Assessment: 68-year-old female with past medical history of breast cancer, hypertension, Daphnie's granulomatosis, who presented for planes of tachycardia, found to have sepsis and healthcare associated pneumonia. Infectious disease consultation requested. Spittle course complicated now by change in mental status concern for herpes encephalitis. 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 Neurology following Patient was seen and examined and case will be discussed with attending physician Thank you for the pleasure participating in the care of this interesting patient <Ramana Haywood - Last Filed: 12/31/18 21:30> Objective - Vital Signs/Intake and Output Vital Signs (last 24 hours): Temp Pulse Resp BP Pulse Ox 97.7 F 93 H 17 150/77 100 12/31/18 20:00 12/31/18 20:00 12/31/18 20:00 12/31/18 20:00 12/31/18 20:00 Intake and Output: 12/31/18 01/01/19 18:59 06:59 Intake Total 250 Output Total 500 Balance -250 - Medications Medications: Current Medications Amlodipine Besylate (Norvasc) 5 mg PO DAILY [facility] Last Admin: 12/31/18 09:22 Dose: 5 mg Aspirin (Ecotrin) 81 mg PO DAILY [facility] Last Admin: 12/31/18 09:23 Dose: 81 mg Calcium Acetate (Phoslo) 667 mg PO BID [facility] Last Admin: 12/31/18 17:38 Dose: Not Given Clonidine HCl (Catapres-Tts3 0.3 Mg/24 Hr) 1 patch TD Q7D@1000 [facility] Last Admin: 12/30/18 12:07 Dose: 1 patch Clonidine HCl (Catapres) 0.1 mg PO Q4H PRN PRN Reason: hypertension Last Admin: 12/31/18 02:24 Dose: 0.1 mg Furosemide (Lasix) 40 mg IVP DAILY [facility] Last Admin: 12/31/18 09:21 Dose: 40 mg Hydralazine HCl (Apresoline) 50 mg PO BID [facility] Last Admin: 12/31/18 17:39 Dose: Not Given Dexmedetomidine HCl (Precedex 400mcg/100ml) 400 mcg in 100 mls @ 3.334 mls/hr IV .Q24H PRN; Protocol PRN Reason: Agitation Last Admin: 12/31/18 08:00 Dose: 0.2 mcg/kg/hr, 3.334 mls/hr Acyclovir 500 mg/ Sodium (Chloride) 100 mls @ 100 mls/hr IV Q24H BAKARI; Protocol Last Admin: 12/31/18 15:00 Dose: 100 mls/hr Acetaminophen (Ofirmev) 1,000 mg in 100 mls @ 400 mls/hr IVPB Q6H PRN PRN Reason: Temperature Stop: 01/02/19 11:53 Losartan Potassium (Cozaar) 100 mg PO DAILY [facility] Last Admin: 12/31/18 09:22 Dose: 100 mg Metoprolol Tartrate (Lopressor) 50 mg PO BID [facility] Last Admin: 12/31/18 17:38 Dose: Not Given Midazolam HCl (Versed Inj) 2 mg IVP Q4 PRN PRN Reason: Agitation Nitroglycerin (Nitro-Bid 2% Oint) 1 ea TOP Q6H [facility] Last Admin: 12/31/18 17:38 Dose: Not Given Pantoprazole Sodium (Protonix Ec Tab) 40 mg PO ACB [facility] Last Admin: 12/31/18 07:56 Dose: 40 mg Prednisone (Prednisone Tab) 20 mg PO BID [facility] Last Admin: 12/31/18 17:37 Dose: 20 mg - Labs Labs: 12/31/18 10:50 12/31/18 10:50 Attending/Attestation - Attestation I have personally seen and examined this patient.: Yes I have fully participated in the care of the patient.: Yes I have reviewed all pertinent clinical information, including history, physical exam and plan: Yes
--- NOTE | 2018-12-31 16:48 | CP.PCM.PCO ---
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
--- NOTE | 2018-12-31 16:50 | CP.PCM.PCO ---
Physician Communication Note - Physician Communication Note Physician Communication Note: pt. on Acyclovir for herpes encephalitis, remains on precedex drip.T-[id number]
--- NOTE | 2019-01-01 00:32 | PN ---
DATE: 12/31/2018 SUBJECTIVE: The patient is seen in the ICU. Family members are at bedside. The patient is sedated at this time. She is minimally responsive. Events of yesterday are noted. The patient had a tonic-clonic seizure towards the end of dialysis. This was a witnessed seizure. The patient was transferred to the ICU. She is currently on sedation with Precedex. PHYSICAL EXAMINATION: GENERAL: An obese, elderly lady lying in bed. VITAL SIGNS: Blood pressure 117/69, heart rate 104, respiratory rate 16 to 18, and temperature 97.7. HEENT: Normocephalic, atraumatic. Positive pallor. NECK: Supple. No JVD. LUNGS: Bilateral equal air entry, bilateral rhonchi. No rales. CARDIAC: S1 and S2, regular rate and rhythm. No murmur, no rubs. ABDOMEN: Obese, distended, soft, nontender. Bowel sounds present. EXTREMITIES: Wrinkling of the skin. No lower extremity edema, puffiness of the face. INTAKE AND OUTPUT: 200/500. LABORATORY DATA: WBC 8.4, hemoglobin 9.4, hematocrit 29, platelets 90. Sodium 133, potassium 3.6, chloride 98, CO2 28, BUN 45, creatinine 4.2, glucose 86, calcium 8, magnesium 1.9, albumin 3, urine protein 5 g, creatinine clearance 11. Spinal fluid volume 3. WBC 1, RBC 54, glucose 39, protein 73, protein is 1 point high 1.8. Blood cultures, no growth. Urine culture, gram-positive cocci less than 10,000 colonies. EEG consistent with periodic shock waves in the right temporal region. Differential diagnosis: Post stroke, post seizure are due to herpes encephalitis. Brain MRI, suboptimal diagnostic quality due to motion artifact, asymmetric signal in the right inferior peripheral vein cortex and right medial temporal lobe, focal encephalitis. CURRENT MEDICATIONS: Acyclovir 500 daily, Apresoline 50 mg b.i.d., clonidine 0.1 every 4 hours, Catapres 0.3 patch, losartan 100, Ecotrin 81, Lasix 40 IV daily, Lopressor 50 b.i.d., amlodipine 5, PhosLo, Precedex, Prednisone, Protonix, Versed. ASSESSMENT: 1. Altered mental status, fever, seizure, herpes encephalitis high in the differential diagnosis. 2. Severe hypertension. 3. Immunocompromise state. 4. 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 The patient has received intravenous steroids, plasmapheresis, Cytoxan intravenous, Rituximab x4 doses. Remains on dialysis. 5. Anemia, severe. 6. Remains with nephrotic range proteinuria. 7. Remains critically ill. 8. Status post seizure. PLAN: 1. Dialysis today, the patient did not finish the dialysis treatment yesterday. We will arrange for dialysis for 2 hours today to correct uremia, which may be contributing to the altered mental status. 2. Agree with treatment for herpes encephalitis. 3. Continue to monitor closely in the ICU. 4. Regular dialysis treatment tomorrow. 5. We will taper off steroids. 6. Continue PPI. 7. Continue antihypertensives. 8. Case discussed with at bedside, case discussed with dialysis nursing staff, case discussed with the ICU nursing staff, case discussed with Dr. Faith at length. More than 35 minutes was spent in the care of this critically ill patient. Monserrat French MD
--- NOTE | 2019-01-01 03:06 | OP ---
PROCEDURE DATE: 12/31/2018 PROCEDURE: Spinal tap. INDICATION: Herpes encephalitis. DESCRIPTION OF PROCEDURE: After obtaining informed consent, operational area was sterilized. Maximum barrier precautions used. Needle inserted in intervertebral space between L4 and L5. A 5 mL of clear transparent fluid obtained and sent for lab. The patient tolerated the procedure well. Sterile dressing applied. No blood loss. Garrett Faith MD
[2019-01-01] MEDS: Nitroglycerin 2% Ointment Foilpak UD TOP SCH ×4 (05:21→18:55)
[2019-01-01 06:45] LABS: HEMOGLOBIN 11.7 g/dL (12.0-16.0); LYMPH # 0.3 (1.2-3.4); LYMPH % 4.4 % (22.0-35.0); MEAN CELL VOLUME 95.2 fl (80.0-105.0); MEAN CORPUSCULAR HEMOGLOBIN 31.1 pg (25.0-35.0); MEAN CORPUSCULAR HGB CONC 32.7 g/dl (31.0-37.0); MEAN PLATELET VOLUME 10.8 fl (7.0-11.0); MONO # 0.1 (0.1-0.6); MONO % 1.6 % (1.0-6.0); RBC 3.76 10^6/uL (3.5-6.1); RED CELL DISTRIBUTION WIDTH 19.7 % (11.5-14.5); WHITE BLOOD COUNT 7.5 10^3/uL (4.5-11.0)
[2019-01-01 07:00] LABS: ALB/GLOB RATIO 1.3 (1.1-1.8); ALBUMIN 3.6 g/dL (3.0-4.8); CALCIUM 8.6 mg/dL (8.4-10.5)
[2019-01-01] MEDS ORDERED: Acyclovir 500 MG in Sodium Chloride 0.9% 100 ML IV SCH (10:00)
[2019-01-01] MEDS: Pantoprazole 40 mg EC Tab PO SCH (10:08)
--- NOTE | 2019-01-01 11:25 | CP.PCM.PN ---
<Tl Gaxiola - Last Filed: 01/01/19 11:22> Subjective - Date & Time of Evaluation Date of Evaluation: 01/01/19 Time of Evaluation: 07:20 - Subjective Subjective: Tl Gaxiola D.O. PGY-3, Internal Medicine Resident, Infectious Disease Progress Note 68 year old female with a PMH of Daphnie's vasculitis, ESRD on HD T/T/S, breast CA and HTN who presented for tachycardia, found to have sepsis and HAP and hospital course complicated by altered mental status concerning for herpes encephalitis. Patient was seen and examined at bedside with boyfriend present. Patient clinically improving. A lot more verbal today although still confused. LP done yesterday by ICU. Objective - Vital Signs/Intake and Output Vital Signs (last 24 hours): Temp Pulse Resp BP Pulse Ox 98.4 F 113 H 22 143/77 100 01/01/19 07:10 01/01/19 10:07 01/01/19 07:10 01/01/19 10:07 01/01/19 07:10 Intake and Output: 01/01/19 01/01/19 06:59 18:59 Intake Total 0 Output Total 650 Balance -650 - Medications Medications: Current Medications Amlodipine Besylate (Norvasc) 5 mg PO DAILY [facility] Last Admin: 01/01/19 10:06 Dose: 5 mg Aspirin (Ecotrin) 81 mg PO DAILY [facility] Last Admin: 01/01/19 10:06 Dose: 81 mg Calcium Acetate (Phoslo) 667 mg PO BID [facility] Last Admin: 01/01/19 10:05 Dose: 667 mg Clonidine HCl (Catapres-Tts3 0.3 Mg/24 Hr) 1 patch TD Q7D@1000 [facility] Last Admin: 12/30/18 12:07 Dose: 1 patch Clonidine HCl (Catapres) 0.1 mg PO Q4H PRN PRN Reason: hypertension Last Admin: 12/31/18 02:24 Dose: 0.1 mg Furosemide (Lasix) 40 mg IVP DAILY [facility] Last Admin: 01/01/19 10:05 Dose: 40 mg Hydralazine HCl (Apresoline) 50 mg PO BID [facility] Last Admin: 01/01/19 10:06 Dose: 50 mg Dexmedetomidine HCl (Precedex 400mcg/100ml) 400 mcg in 100 mls @ 3.334 mls/hr IV .Q24H PRN; Protocol PRN Reason: Agitation Last Admin: 12/31/18 08:00 Dose: 0.2 mcg/kg/hr, 3.334 mls/hr Acetaminophen (Ofirmev) 1,000 mg in 100 mls @ 400 mls/hr IVPB Q6H PRN PRN Reason: Temperature Stop: 01/02/19 11:53 Acyclovir 500 mg/ Sodium (Chloride) 100 mls @ 100 mls/hr IV TTS [facility]; Protocol Acyclovir 500 mg/ Sodium (Chloride) 100 mls @ 100 mls/hr IV Q24H [facility]; Protocol Losartan Potassium (Cozaar) 100 mg PO DAILY [facility] Last Admin: 01/01/19 10:07 Dose: 100 mg Metoprolol Tartrate (Lopressor) 50 mg PO BID [facility] Last Admin: 01/01/19 10:07 Dose: 50 mg Midazolam HCl (Versed Inj) 2 mg IVP Q4 PRN PRN Reason: Agitation Nitroglycerin (Nitro-Bid 2% Oint) 1 ea TOP Q6H [facility] Last Admin: 01/01/19 05:21 Dose: 1 ea Pantoprazole Sodium (Protonix Ec Tab) 40 mg PO ACB [facility] Last Admin: 01/01/19 10:08 Dose: 40 mg Prednisone (Prednisone Tab) 20 mg PO BID [facility] Last Admin: 01/01/19 10:07 Dose: 20 mg - Labs Labs: 01/01/19 05:30 01/01/19 05:30 - Constitutional Appears: Non-toxic, No Acute Distress - Head Exam Head Exam: ATRAUMATIC, NORMOCEPHALIC - Eye Exam Eye Exam: EOMI. absent: Scleral icterus - ENT Exam ENT Exam: Mucous Membranes Moist, Normal Oropharynx - Neck Exam Neck Exam: Normal Inspection. absent: Meningismus - Respiratory Exam Respiratory Exam: absent: Rhonchi, Wheezes - Cardiovascular Exam Cardiovascular Exam: +S1, +S2. absent: Gallop, Rubs - GI/Abdominal Exam GI & Abdominal Exam: Soft. absent: Tenderness - Extremities Exam Extremities Exam: absent: Calf Tenderness - Neurological Exam Additional comments: awake, alert, confused, oriented to self, place, follows simple commands, SUGAR - Skin Skin Exam: Dry, Warm Assessment and Plan - Assessment and Plan (Free Text) Assessment: 68 year old female with a PMH of Daphnie's vasculitis, ESRD on HD T/T/S, breast CA and HTN who presented for tachycardia, found to have sepsis and HAP and hospital course complicated by altered mental status concerning for herpes encephalitis. Plan: Sepsis HAP Altered mental status with suspected herpes encephalitis Both clinically and brain MRI consistent with herpes encephalitis S/p LP yesterday, will f/u cytology and immunology Continue with acyclovir at this time Discussed with nursing that she needs to have acyclovir dose after her dialysis session Neurology following Patient was seen and examined and case will be discussed with attending physician Thank you for the pleasure participating in the care of this interesting patient <Ramana Haywood - Last Filed: 01/01/19 13:06> Objective - Vital Signs/Intake and Output Vital Signs (last 24 hours): Temp Pulse Resp BP Pulse Ox 98.4 F 113 H 22 143/77 100 01/01/19 07:10 01/01/19 10:07 01/01/19 07:10 01/01/19 10:07 01/01/19 07:10 Intake and Output: 01/01/19 01/01/19 06:59 18:59 Intake Total 0 Output Total 650 Balance -650 - Medications Medications: Current Medications Amlodipine Besylate (Norvasc) 5 mg PO DAILY [facility] Last Admin: 01/01/19 10:06 Dose: 5 mg Aspirin (Ecotrin) 81 mg PO DAILY [facility] Last Admin: 01/01/19 10:06 Dose: 81 mg Calcium Acetate (Phoslo) 667 mg PO BID [facility] Last Admin: 01/01/19 10:05 Dose: 667 mg Clonidine HCl (Catapres-Tts3 0.3 Mg/24 Hr) 1 patch TD Q7D@1000 [facility] Last Admin: 12/30/18 12:07 Dose: 1 patch Clonidine HCl (Catapres) 0.1 mg PO Q4H PRN PRN Reason: hypertension Last Admin: 12/31/18 02:24 Dose: 0.1 mg Furosemide (Lasix) 40 mg IVP DAILY [facility] Last Admin: 01/01/19 10:05 Dose: 40 mg Hydralazine HCl (Apresoline) 50 mg PO BID [facility] Last Admin: 01/01/19 10:06 Dose: 50 mg Dexmedetomidine HCl (Precedex 400mcg/100ml) 400 mcg in 100 mls @ 3.334 mls/hr IV .Q24H PRN; Protocol PRN Reason: Agitation Last Admin: 12/31/18 08:00 Dose: 0.2 mcg/kg/hr, 3.334 mls/hr Acetaminophen (Ofirmev) 1,000 mg in 100 mls @ 400 mls/hr IVPB Q6H PRN PRN Reason: Temperature Stop: 01/02/19 11:53 Acyclovir 500 mg/ Sodium (Chloride) 100 mls @ 100 mls/hr IV TTS [facility]; Protocol Acyclovir 500 mg/ Sodium (Chloride) 100 mls @ 100 mls/hr IV Q24H [facility]; Protocol Last Admin: 01/01/19 12:23 Dose: 100 mls/hr Losartan Potassium (Cozaar) 100 mg PO DAILY [facility] Last Admin: 01/01/19 10:07 Dose: 100 mg Metoprolol Tartrate (Lopressor) 50 mg PO BID [facility] Last Admin: 01/01/19 10:07 Dose: 50 mg Midazolam HCl (Versed Inj) 2 mg IVP Q4 PRN PRN Reason: Agitation Nitroglycerin (Nitro-Bid 2% Oint) 1 ea TOP Q6H [facility] Last Admin: 01/01/19 05:21 Dose: 1 ea Pantoprazole Sodium (Protonix Ec Tab) 40 mg PO ACB [facility] Last Admin: 01/01/19 10:08 Dose: 40 mg Prednisone (Prednisone Tab) 20 mg PO BID [facility] Last Admin: 01/01/19 10:07 Dose: 20 mg - Labs Labs: 01/01/19 05:30 01/01/19 05:30 Attending/Attestation - Attestation I have personally seen and examined this patient.: Yes I have fully participated in the care of the patient.: Yes I have reviewed all pertinent clinical information, including history, physical exam and plan: Yes
[2019-01-01] MEDS: Acyclovir 500 MG in Sodium Chloride 0.9% 100 ML IV SCH ×3 (12:23→20:39)
--- NOTE | 2019-01-01 14:25 | CP.PCM.PCO ---
Physician Communication Note - Physician Communication Note Physician Communication Note: Pt.still confused,IV acyclovir for herpes encephalitis,for HD today,seizure
--- NOTE | 2019-01-01 14:25 | PN ---
DATE: 01/01/2019 SUBJECTIVE: The patient was seen this morning in Intensive Care, ICU bed 5 with her , Guerrero, at the bedside. She is more awake, much more alert but still quite foggy, having difficulty remembering my name and speaking in conversation. PHYSICAL EXAMINATION: GENERAL: She appears awake and alert. Follows simple commands. Answers simple questions. HEAD AND NECK: As always cushingoid. Conjunctivae pink. Mucous membranes moist. Neck is supple without masses. Thyroid is not palpable. LUNGS: Good aeration, right and left. EXTREMITIES: Show no edema. IMPRESSION: 1. Viral encephalitis. 2. Daphnie's granulomatosis. 3. Renal failure. 4. End-stage renal disease, on dialysis. 5. Slight volume overload. 6. Small sacral wound. 7. Possible urinary tract infection on admission versus asymptomatic bacteria. PLAN: Continuing antivirals and dialysis and aggressive course in ICU. I explained to the patient's at length regarding her condition and our plans. Simon Webb MD
--- NOTE | 2019-01-01 14:46 | CP.CCUPN ---
CCU Subjective - Physician Review Events Since Last Encounter (Free Text): 01/01/19 14:39 Pt has greatly improved since yesterday, alert and awake Subjective (Free Text): 12/31/18 16:02 Pt seen and examined at bedside this morning in the ICU. Pt remains sedated and somnolent. 01/01/19 14:40 Pt seen and examined at bedside. Pt has no complaints at this time, AOx3 Critical Care Time Spent (in minutes): 45 CCU Objective - Vital Signs / Intake & Output Intake and Output (Last 8hrs): Intake & Output 12/31/18 01/01/19 01/01/19 22:59 06:59 14:59 Intake Total 250 0 Output Total 500 650 Balance -250 -650 Weight 135 lb Intake: IV 100 LEFT INNER FOREARM 100 Oral 150 0 Output: Urine 500 150 Urine, Voided 500 150 Other 500 Other: # Bowel Movements 0 0 - Physical Exam Head: Positive for: Atraumatic, Normocephalic Extroacular Muscles: Positive for: EOMI Mouth: Positive for: Moist Mucous Membranes Neck: Positive for: Normal Range of Motion Respiratory/Chest: Positive for: Clear to Auscultation, Good Air Exchange. Negative for: Respiratory Distress, Accessory Muscle Use Cardiovascular: Positive for: Regular Rate and Rhythm, Normal S1, S2. Negative for: Murmurs Abdomen: Positive for: Tenderness, Normal Bowel Sounds. Negative for: Distention Upper Extremity: Positive for: Normal Inspection. Negative for: Cyanosis, Edema Lower Extremity: Positive for: Normal Inspection Skin: Positive for: Warm, Dry, Normal Color. Negative for: Rashes Psychiatric: Positive for: Alert, Oriented x 3 - Medications Active Medications: Active Medications Generic Name Dose Route Start Last Admin Trade Name Freq PRN Reason Stop Dose Admin Amlodipine Besylate 5 mg 12/31/18 10:00 01/01/19 10:06 Norvasc PO 5 mg DAILY [facility] Administration Aspirin 81 mg 12/30/18 10:00 01/01/19 10:06 Ecotrin PO 81 mg DAILY [facility] Administration Calcium Acetate 667 mg 12/27/18 18:00 01/01/19 10:05 Phoslo PO 667 mg BID [facility] Administration Clonidine HCl 1 patch 12/30/18 11:30 12/30/18 12:07 Catapres-Tts3 0.3 Mg/24 Hr TD 1 patch Q7D@1000 [facility] Administration Clonidine HCl 0.1 mg 12/30/18 12:34 12/31/18 02:24 Catapres PO 0.1 mg Q4H PRN Administration hypertension Furosemide 40 mg 12/27/18 15:45 01/01/19 10:05 Lasix IVP 40 mg DAILY [facility] Administration Hydralazine HCl 50 mg 12/27/18 18:00 01/01/19 10:06 Apresoline PO 50 mg BID [facility] Administration Dexmedetomidine HCl 400 mcg in 100 mls @ 3.334 mls/hr 12/31/18 08:15 12/31/18 08:00 Precedex 400mcg/100ml IV 0.2 mcg/kg/hr .Q24H PRN 3.334 mls/hr Agitation Administration Protocol 0.2 MCG/KG/HR Acetaminophen 1,000 mg in 100 mls @ 400 mls/hr 12/31/18 11:52 Ofirmev IVPB 01/02/19 11:53 Q6H PRN Temperature Acyclovir 500 mg/ Sodium 100 mls @ 100 mls/hr 01/01/19 13:00 Chloride IV TTS [facility] Protocol Acyclovir 500 mg/ Sodium 100 mls @ 100 mls/hr 01/01/19 11:15 01/01/19 12:23 Chloride IV 100 mls/hr Q24H [facility] Administration Protocol Losartan Potassium 100 mg 12/29/18 10:00 01/01/19 10:07 Cozaar PO 100 mg DAILY [facility] Administration Metoprolol Tartrate 50 mg 12/27/18 18:00 01/01/19 10:07 Lopressor PO 50 mg BID [facility] Administration Midazolam HCl 2 mg 12/31/18 08:12 Versed Inj IVP Q4 PRN Agitation Nitroglycerin 1 ea 12/29/18 18:15 01/01/19 05:21 Nitro-Bid 2% Oint TOP 1 ea Q6H [facility] Administration Pantoprazole Sodium 40 mg 12/30/18 07:30 01/01/19 10:08 Protonix Ec Tab PO 40 mg ACB [facility] Administration Prednisone 20 mg 12/29/18 16:49 01/01/19 10:07 Prednisone Tab PO 20 mg BID [facility] Administration - Patient Studies Lab Studies: Microbiology Studies 12/27/18 13:45 Blood Culture - Final Blood-Venous NO GROWTH AFTER 5 DAYS Gram Stain - Final TEST NOT PERFORMED 12/31/18 14:15 Gram Stain - Final Cerebral Spinal Fluid 12/30/18 14:00 MRSA Culture (Admit) - Final Naris MRSA NOT DETECTED 12/29/18 20:52 Blood Culture - Preliminary Blood-Venous NO GROWTH AFTER 48 HOURS 12/29/18 20:52 Blood Culture - Preliminary Blood-Venous NO GROWTH AFTER 48 HOURS 12/27/18 14:50 Blood Culture - Preliminary Blood-Venous NO GROWTH AFTER 4 DAYS Lab Studies 01/01/19 01/01/19 01/01/19 Range/Units 12:31 05:30 05:30 WBC 7.5 (4.5-11.0) 10^3/uL RBC 3.76 (3.5-6.1) 10^6/uL Hgb 11.7 L D (12.0-16.0) g/dL Hct 35.8 L (36.0-48.0) % MCV 95.2 (80.0-105.0) fl MCH 31.1 (25.0-35.0) pg MCHC 32.7 (31.0-37.0) g/dl RDW 19.7 H (11.5-14.5) % Plt Count 109 L (120.0-450.0) 10^3/uL MPV 10.8 (7.0-11.0) fl Neut % (Auto) 94.0 H (50.0-68.0) % Lymph % (Auto) 4.4 L (22.0-35.0) % Payette % (Auto) 1.6 (1.0-6.0) % Eos % (Auto) 0.0 L (1.5-5.0) % Baso % (Auto) 0.0 (0.0-3.0) % Lymph # (Auto) 0.3 L (1.2-3.4) [place]ette # (Auto) 0.1 (0.1-0.6) Eos # (Auto) 0.0 (0.0-0.7) Baso # (Auto) 0.00 (0.0-2.0) K/mm3 Absolute Neuts (auto) 7.04 H (1.4-6.5) Sodium 136 (132-148) mmol/L Potassium 3.9 (3.6-5.0) mmol/L Chloride 99 (98-107) mmol/L Carbon Dioxide 24 (21-33) mmol/L Anion Gap 18 (10-20) BUN 38 H (7-21) mg/dL Creatinine 3.4 H (0.7-1.2) mg/dl Est GFR ( Amer) 16 Est GFR (Non-Af Amer) 13 POC Glucose (mg/dL) 84 (65-110) mg/dL Random Glucose 74 (70-110) mg/dL Calcium 8.6 (8.4-10.5) mg/dL Magnesium (1.7-2.2) mg/dL Total Bilirubin 0.9 (0.2-1.3) mg/dL AST 34 (14-36) U/L ALT 34 (7-56) U/L Alkaline Phosphatase 80 (38-126) U/L Total Protein 6.4 (5.8-8.3) g/dL Albumin 3.6 (3.0-4.8) g/dL Globulin 2.8 gm/dL Albumin/Globulin Ratio 1.3 (1.1-1.8) CSF Volume (0-1) mL CSF Appearance (CLEAR) CSF WBC (0.0-5.0) /uL CSF RBC (0.0-0.0) /uL CSF Total Cell Counted CSF Monos/Macrophages CSF Glucose (40-70) mg/dL CSF Total Protein (12-60) mg/dL HSV Source Description 01/01/19 12/31/18 12/31/18 Range/Units 04:50 23:21 19:02 WBC (4.5-11.0) 10^3/uL RBC (3.5-6.1) 10^6/uL Hgb (12.0-16.0) g/dL Hct (36.0-48.0) % MCV (80.0-105.0) fl MCH (25.0-35.0) pg MCHC (31.0-37.0) g/dl RDW (11.5-14.5) % Plt Count (120.0-450.0) 10^3/uL MPV (7.0-11.0) fl Neut % (Auto) (50.0-68.0) % Lymph % (Auto) (22.0-35.0) % Payette % (Auto) (1.0-6.0) % Eos % (Auto) (1.5-5.0) % Baso % (Auto) (0.0-3.0) % Lymph # (Auto) (1.2-3.4) Payette # (Auto) (0.1-0.6) Eos # (Auto) (0.0-0.7) Baso # (Auto) (0.0-2.0) K/mm3 Absolute Neuts (auto) (1.4-6.5) Sodium (132-148) mmol/L Potassium (3.6-5.0) mmol/L Chloride (98-107) mmol/L Carbon Dioxide (21-33) mmol/L Anion Gap (10-20) BUN (7-21) mg/dL Creatinine (0.7-1.2) mg/dl Est GFR ( Amer) Est GFR (Non-Af Amer) POC Glucose (mg/dL) 80 83 95 (65-110) mg/dL Random Glucose (70-110) mg/dL Calcium (8.4-10.5) mg/dL Magnesium (1.7-2.2) mg/dL Total Bilirubin (0.2-1.3) mg/dL AST (14-36) U/L ALT (7-56) U/L Alkaline Phosphatase (38-126) U/L Total Protein (5.8-8.3) g/dL Albumin (3.0-4.8) g/dL Globulin gm/dL Albumin/Globulin Ratio (1.1-1.8) CSF Volume (0-1) mL CSF Appearance (CLEAR) CSF WBC (0.0-5.0) /uL CSF RBC (0.0-0.0) /uL CSF Total Cell Counted CSF Monos/Macrophages CSF Glucose (40-70) mg/dL CSF Total Protein (12-60) mg/dL HSV Source Description 12/31/18 12/31/18 12/31/18 Range/Units 16:59 14:58 14:15 WBC (4.5-11.0) 10^3/uL RBC (3.5-6.1) 10^6/uL Hgb (12.0-16.0) g/dL Hct (36.0-48.0) % MCV (80.0-105.0) fl MCH (25.0-35.0) pg MCHC (31.0-37.0) g/dl RDW (11.5-14.5) % Plt Count (120.0-450.0) 10^3/uL MPV (7.0-11.0) fl Neut % (Auto) (50.0-68.0) % Lymph % (Auto) (22.0-35.0) % Payette % (Auto) (1.0-6.0) % Eos % (Auto) (1.5-5.0) % Baso % (Auto) (0.0-3.0) % Lymph # (Auto) (1.2-3.4) Payette # (Auto) (0.1-0.6) Eos # (Auto) (0.0-0.7) Baso # (Auto) (0.0-2.0) K/mm3 Absolute Neuts (auto) (1.4-6.5) Sodium (132-148) mmol/L Potassium (3.6-5.0) mmol/L Chloride (98-107) mmol/L Carbon Dioxide (21-33) mmol/L Anion Gap (10-20) BUN (7-21) mg/dL Creatinine (0.7-1.2) mg/dl Est GFR ( Amer) Est GFR (Non-Af Amer) POC Glucose (mg/dL) 89 85 (65-110) mg/dL Random Glucose (70-110) mg/dL Calcium (8.4-10.5) mg/dL Magnesium (1.7-2.2) mg/dL Total Bilirubin (0.2-1.3) mg/dL AST (14-36) U/L ALT (7-56) U/L Alkaline Phosphatase (38-126) U/L Total Protein (5.8-8.3) g/dL Albumin (3.0-4.8) g/dL Globulin gm/dL Albumin/Globulin Ratio (1.1-1.8) CSF Volume (0-1) mL CSF Appearance (CLEAR) CSF WBC (0.0-5.0) /uL CSF RBC (0.0-0.0) /uL CSF Total Cell Counted CSF Monos/Macrophages CSF Glucose (40-70) mg/dL CSF Total Protein (12-60) mg/dL HSV Source Description Fluid 12/31/18 12/31/18 12/31/18 Range/Units 14:12 14:11 13:03 WBC (4.5-11.0) 10^3/uL RBC (3.5-6.1) 10^6/uL Hgb (12.0-16.0) g/dL Hct (36.0-48.0) % MCV (80.0-105.0) fl MCH (25.0-35.0) pg MCHC (31.0-37.0) g/dl RDW (11.5-14.5) % Plt Count (120.0-450.0) 10^3/uL MPV (7.0-11.0) fl Neut % (Auto) (50.0-68.0) % Lymph % (Auto) (22.0-35.0) % Payette % (Auto) (1.0-6.0) % Eos % (Auto) (1.5-5.0) % Baso % (Auto) (0.0-3.0) % Lymph # (Auto) (1.2-3.4) Payette # (Auto) (0.1-0.6) Eos # (Auto) (0.0-0.7) Baso # (Auto) (0.0-2.0) K/mm3 Absolute Neuts (auto) (1.4-6.5) Sodium (132-148) mmol/L Potassium (3.6-5.0) mmol/L Chloride (98-107) mmol/L Carbon Dioxide (21-33) mmol/L Anion Gap (10-20) BUN (7-21) mg/dL Creatinine (0.7-1.2) mg/dl Est GFR ( Amer) Est GFR (Non-Af Amer) POC Glucose (mg/dL) 76 (65-110) mg/dL Random Glucose (70-110) mg/dL Calcium (8.4-10.5) mg/dL Magnesium (1.7-2.2) mg/dL Total Bilirubin (0.2-1.3) mg/dL AST (14-36) U/L ALT (7-56) U/L Alkaline Phosphatase (38-126) U/L Total Protein (5.8-8.3) g/dL Albumin (3.0-4.8) g/dL Globulin gm/dL Albumin/Globulin Ratio (1.1-1.8) CSF Volume 3 H (0-1) mL CSF Appearance Clear/colorless (CLEAR) CSF WBC 1.0 (0.0-5.0) /uL CSF RBC 54.0 H (0.0-0.0) /uL CSF Total Cell Counted TEST NOT PERFORMED CSF Monos/Macrophages TEST NOT PERFORMED CSF Glucose 39 L (40-70) mg/dL CSF Total Protein 73.0 H (12-60) mg/dL HSV Source Description 12/31/18 Range/Units 10:50 WBC (4.5-11.0) 10^3/uL RBC (3.5-6.1) 10^6/uL Hgb (12.0-16.0) g/dL Hct (36.0-48.0) % MCV (80.0-105.0) fl MCH (25.0-35.0) pg MCHC (31.0-37.0) g/dl RDW (11.5-14.5) % Plt Count (120.0-450.0) 10^3/uL MPV (7.0-11.0) fl Neut % (Auto) (50.0-68.0) % Lymph % (Auto) (22.0-35.0) % Payette % (Auto) (1.0-6.0) % Eos % (Auto) (1.5-5.0) % Baso % (Auto) (0.0-3.0) % Lymph # (Auto) (1.2-3.4) [place]ette # (Auto) (0.1-0.6) Eos # (Auto) (0.0-0.7) Baso # (Auto) (0.0-2.0) K/mm3 Absolute Neuts (auto) (1.4-6.5) Sodium (132-148) mmol/L Potassium (3.6-5.0) mmol/L Chloride (98-107) mmol/L Carbon Dioxide (21-33) mmol/L Anion Gap (10-20) BUN (7-21) mg/dL Creatinine (0.7-1.2) mg/dl Est GFR ( Amer) Est GFR (Non-Af Amer) POC Glucose (mg/dL) (65-110) mg/dL Random Glucose (70-110) mg/dL Calcium (8.4-10.5) mg/dL Magnesium 1.9 (1.7-2.2) mg/dL Total Bilirubin (0.2-1.3) mg/dL AST (14-36) U/L ALT (7-56) U/L Alkaline Phosphatase (38-126) U/L Total Protein (5.8-8.3) g/dL Albumin (3.0-4.8) g/dL Globulin gm/dL Albumin/Globulin Ratio (1.1-1.8) CSF Volume (0-1) mL CSF Appearance (CLEAR) CSF WBC (0.0-5.0) /uL CSF RBC (0.0-0.0) /uL CSF Total Cell Counted CSF Monos/Macrophages CSF Glucose (40-70) mg/dL CSF Total Protein (12-60) mg/dL HSV Source Description Laboratory Results - last 24 hr 12/31/18 12/31/18 12/31/18 10:50 13:03 14:11 WBC RBC Hgb Hct MCV MCH MCHC RDW Plt Count MPV Neut % (Auto) Lymph % (Auto) [place]ette % (Auto) Eos % (Auto) Baso % (Auto) Lymph # (Auto) [place]ette # (Auto) Eos # (Auto) Baso # (Auto) Absolute Neuts (auto) Sodium Potassium Chloride Carbon Dioxide Anion Gap BUN Creatinine Est GFR ( Amer) Est GFR (Non-Af Amer) POC Glucose (mg/dL) 76 Random Glucose Calcium Magnesium 1.9 Total Bilirubin AST ALT Alkaline Phosphatase Total Protein Albumin Globulin Albumin/Globulin Ratio CSF Volume 3 H CSF Appearance Clear/colorless CSF WBC 1.0 CSF RBC 54.0 H CSF Total Cell Counted TEST NOT PERFORMED CSF Monos/Macrophages TEST NOT PERFORMED CSF Glucose CSF Total Protein HSV Source Description 12/31/18 12/31/18 12/31/18 14:12 14:15 14:58 WBC RBC Hgb Hct MCV MCH MCHC RDW Plt Count MPV Neut % (Auto) Lymph % (Auto) [place]ette % (Auto) Eos % (Auto) Baso % (Auto) Lymph # (Auto) [place]ette # (Auto) Eos # (Auto) Baso # (Auto) Absolute Neuts (auto) Sodium Potassium Chloride Carbon Dioxide Anion Gap BUN Creatinine Est GFR ( Amer) Est GFR (Non-Af Amer) POC Glucose (mg/dL) 85 Random Glucose Calcium Magnesium Total Bilirubin AST ALT Alkaline Phosphatase Total Protein Albumin Globulin Albumin/Globulin Ratio CSF Volume CSF Appearance CSF WBC CSF RBC CSF Total Cell Counted CSF Monos/Macrophages CSF Glucose 39 L CSF Total Protein 73.0 H HSV Source Description Fluid 12/31/18 12/31/18 12/31/18 16:59 19:02 23:21 WBC RBC Hgb Hct MCV MCH MCHC RDW Plt Count MPV Neut % (Auto) Lymph % (Auto) [place]ette % (Auto) Eos % (Auto) Baso % (Auto) Lymph # (Auto) [place]ette # (Auto) Eos # (Auto) Baso # (Auto) Absolute Neuts (auto) Sodium Potassium Chloride Carbon Dioxide Anion Gap BUN Creatinine Est GFR ( Amer) Est GFR (Non-Af Amer) POC Glucose (mg/dL) 89 95 83 Random Glucose Calcium Magnesium Total Bilirubin AST ALT Alkaline Phosphatase Total Protein Albumin Globulin Albumin/Globulin Ratio CSF Volume CSF Appearance CSF WBC CSF RBC CSF Total Cell Counted CSF Monos/Macrophages CSF Glucose CSF Total Protein HSV Source Description 01/01/19 01/01/19 01/01/19 04:50 05:30 05:30 WBC 7.5 RBC 3.76 Hgb 11.7 L D Hct 35.8 L MCV 95.2 MCH 31.1 MCHC 32.7 RDW 19.7 H Plt Count 109 L MPV 10.8 Neut % (Auto) 94.0 H Lymph % (Auto) 4.4 L [place] % (Auto) 1.6 Eos % (Auto) 0.0 L Baso % (Auto) 0.0 Lymph # (Auto) 0.3 L [place] # (Auto) 0.1 Eos # (Auto) 0.0 Baso # (Auto) 0.00 Absolute Neuts (auto) 7.04 H Sodium 136 Potassium 3.9 Chloride 99 Carbon Dioxide 24 Anion Gap 18 BUN 38 H Creatinine 3.4 H Est GFR ( Amer) 16 Est GFR (Non-Af Amer) 13 POC Glucose (mg/dL) 80 Random Glucose 74 Calcium 8.6 Magnesium Total Bilirubin 0.9 AST 34 ALT 34 Alkaline Phosphatase 80 Total Protein 6.4 Albumin 3.6 Globulin 2.8 Albumin/Globulin Ratio 1.3 CSF Volume CSF Appearance CSF WBC CSF RBC CSF Total Cell Counted CSF Monos/Macrophages CSF Glucose CSF Total Protein HSV Source Description 01/01/19 12:31 WBC RBC Hgb Hct MCV MCH MCHC RDW Plt Count MPV Neut % (Auto) Lymph % (Auto) [place] % (Auto) Eos % (Auto) Baso % (Auto) Lymph # (Auto) [place] # (Auto) Eos # (Auto) Baso # (Auto) Absolute Neuts (auto) Sodium Potassium Chloride Carbon Dioxide Anion Gap BUN Creatinine Est GFR ( Amer) Est GFR (Non-Af Amer) POC Glucose (mg/dL) 84 Random Glucose Calcium Magnesium Total Bilirubin AST ALT Alkaline Phosphatase Total Protein Albumin Globulin Albumin/Globulin Ratio CSF Volume CSF Appearance CSF WBC CSF RBC CSF Total Cell Counted CSF Monos/Macrophages CSF Glucose CSF Total Protein HSV Source Description Fingerstick Blood Sugar Results: 80 Critical Care Progress Note - Nutrition Nutrition: Nutrition Category Date Time Status Renal Diet [DIET] Diets 12/27/18 Dinner Ordered Assessment/Plan - Assessment and Plan (Free Text) Assessment: Pt is a 68yo female with a PMH of [facility], ESRD on HD, HTN taking steroids chronically who was admitted for confusion, AMS and later experienced new onset seizures. 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 Involvement of parietal lobe and temporal lobe. - Video EEG: abnormal awake and sleep video EEG. Frequent Pled like discharges noted in the left temporal region. Encephalopathy indicated by slowing throughout background. No seizures noted. - precedex, versed - Neuro consulted, Dr Reyna Earl - Maintain MAP >65 - trop 0.17, 0.16, 0.32, 0.29, 0.25, 0.26 - amlodipine, ASA, clonidine, lasix, hydralazine, cozaar, metoprolol - Cardio consulted, Dr Calvert Pulm - Maintain O2 sat >92 - Chest CT shows possible multifocal PNA GI - pantoprazole Heme - monitor H/H - Hgb 11.7 Nephro - Cr 3.4 - BUN 38 - continue to monitor electrolytes Endo - maintain euglycemia ID - no leukocytosis - acyclovir - ID consulted Pt seen, examined, assessment and plan discussed with Dr Marcell Bhakta PGY1 - Date & Time Date: 01/01/19 Time: 07:30
--- NOTE | 2019-01-01 15:29 | CP.PCM.PN ---
Subjective - Date & Time of Evaluation Date of Evaluation: 01/01/19 Time of Evaluation: 15:29 - Subjective Subjective: Neuro Follow-Up Note: Ms. Badillo was evaluated this afternoon in the ICU. Pt's fiance present at bedside. Pt is awake and alert. Pt states that she feels "fine." She offers no complaints today. Per pt's fiance, she is more alert today, though still has periods of confusion and agitations. Pt presently denies h/a, dizziness, visual changes, chest pain, palpitations, cough, sob, abd pain, paresthesias. Objective - Vital Signs/Intake and Output Vital Signs (last 24 hours): Temp Pulse Resp BP Pulse Ox 98.4 F 113 H 22 143/77 100 01/01/19 07:10 01/01/19 10:07 01/01/19 07:10 01/01/19 10:07 01/01/19 07:10 Intake and Output: 01/01/19 01/01/19 06:59 18:59 Intake Total 0 Output Total 650 Balance -650 - Medications Medications: Current Medications Amlodipine Besylate (Norvasc) 5 mg PO DAILY [facility] Last Admin: 01/01/19 10:06 Dose: 5 mg Aspirin (Ecotrin) 81 mg PO DAILY [facility] Last Admin: 01/01/19 10:06 Dose: 81 mg Calcium Acetate (Phoslo) 667 mg PO BID [facility] Last Admin: 01/01/19 10:05 Dose: 667 mg Clonidine HCl (Catapres-Tts3 0.3 Mg/24 Hr) 1 patch TD Q7D@1000 [facility] Last Admin: 12/30/18 12:07 Dose: 1 patch Clonidine HCl (Catapres) 0.1 mg PO Q4H PRN PRN Reason: hypertension Last Admin: 12/31/18 02:24 Dose: 0.1 mg Furosemide (Lasix) 40 mg IVP DAILY [facility] Last Admin: 01/01/19 10:05 Dose: 40 mg Heparin Sodium (Porcine) (Heparin) 5,000 units SC Q12 [facility]; Protocol Hydralazine HCl (Apresoline) 50 mg PO BID [facility] Last Admin: 01/01/19 10:06 Dose: 50 mg Dexmedetomidine HCl (Precedex 400mcg/100ml) 400 mcg in 100 mls @ 3.334 mls/hr IV .Q24H PRN; Protocol PRN Reason: Agitation Last Admin: 12/31/18 08:00 Dose: 0.2 mcg/kg/hr, 3.334 mls/hr Acetaminophen (Ofirmev) 1,000 mg in 100 mls @ 400 mls/hr IVPB Q6H PRN PRN Reason: Temperature Stop: 01/02/19 11:53 Acyclovir 500 mg/ Sodium (Chloride) 100 mls @ 100 mls/hr IV TTS [facility]; Protocol Acyclovir 500 mg/ Sodium (Chloride) 100 mls @ 100 mls/hr IV Q24H [facility]; Protocol Last Admin: 01/01/19 12:23 Dose: 100 mls/hr Losartan Potassium (Cozaar) 100 mg PO DAILY [facility] Last Admin: 01/01/19 10:07 Dose: 100 mg Metoprolol Tartrate (Lopressor) 50 mg PO BID [facility] Last Admin: 01/01/19 10:07 Dose: 50 mg Midazolam HCl (Versed Inj) 2 mg IVP Q4 PRN PRN Reason: Agitation Nitroglycerin (Nitro-Bid 2% Oint) 1 ea TOP Q6H [facility] Last Admin: 01/01/19 05:21 Dose: 1 ea Pantoprazole Sodium (Protonix Ec Tab) 40 mg PO ACB [facility] Last Admin: 01/01/19 10:08 Dose: 40 mg Prednisone (Prednisone Tab) 20 mg PO BID [facility] Last Admin: 01/01/19 10:07 Dose: 20 mg - Labs Labs: 01/01/19 05:30 01/01/19 05:30 - Constitutional Appears: No Acute Distress - Head Exam Head Exam: ATRAUMATIC, NORMAL INSPECTION, NORMOCEPHALIC - Eye Exam Eye Exam: EOMI, Normal appearance, PERRL Pupil Exam: NORMAL ACCOMODATION, PERRL Additional comments: Pupils both reactive, approx 6 mm b/l - ENT Exam ENT Exam: Mucous Membranes Moist - Neck Exam Neck Exam: Normal Inspection - Respiratory Exam Respiratory Exam: NORMAL BREATHING PATTERN - GI/Abdominal Exam GI & Abdominal Exam: Soft - Extremities Exam Extremities Exam: absent: Calf Tenderness, Pedal Edema Additional comments: B/l soft wrist restraints on; limited ROM due to this. 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 Able to move both feet and wiggle toes; unable to life BLE off of the bed - Neurological Exam Neurological Exam: Alert, Altered, Awake, Reflexes Normal. absent: Oriented x3 Neuro motor strength exam: Left Lower Extremity: 2/1, Right Lower Extremity: 2/1 Additional comments: Pt verbal, alert, awake, follows commands. Speech clear B/l soft wrist restraints on; limited ROM due to this. 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 Able to move both feet and wiggle toes; unable to life BLE off of the bed No tremors or other abnormal movements Unable to test for dysmetria 2/2 wrist restraints on. Toes down going b/l - Psychiatric Exam Additional comments: awake, alert, periods of confusion - Skin Skin Exam: Normal Color Assessment and Plan (1) Altered mental state Assessment & Plan: Imaging Reviewed: -MRI Brain (12/30/18): 1. Suboptimal diagnostic quality due to motion degraded images. Asymmetric signal abnormality in the right inferior perisylvian cortex and right medial temporal lobe. 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 Please correlate with CSF analysis. MRI of the brain with intravenous contrast is recommended for further evaluation. Absence of territorial involvement mitigates against acute infarction and absence of vasogenic edema mitigates against primary neoplasm. 2. Mild chronic microangiopathic changes and mild age-related global parenchymal volume loss. -CT Head (12/30/18): No evidence of acute intracranial hemorrhage mass effect or midline shift. No significant interval change in the brain parenchyma noted since the prior study. Sphenoid and right maxillary mucosal thickening suspicious for sinusitis. -CT Head (12/27/18): Age-appropriate age related neuro degenerative findings are appreciate without definite acute intracranial pattern by standard CT criteria. Follow-up CT or MRI are available if clinically warranted. Incidental sinusitis as discussed above. -Still pending labs to r/o infectious processes -LP specimen results reviewed; elevated protein at 73; wbc normal. 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 -Continue ICU management. Status: Acute (2) Seizure Assessment & Plan: Imaging reviewed: -VEEG (12/30/18): The First 6 hours of this Video EEG show that this is an abnormal awake and sleep video EEG. There are frequent Pled like discharges noted in the left temporal region, as well as right temporal focal slowing. There is also encephalopathy indicated by generalized slowing throughout the background. There were no clinical or subclinical seizures noted. PLEDS or periodic sharp waves can be seen post stroke, post seizure or due to herpes encephalitis. Clinical correlation is required. -MRI Brain (12/30/18): 1. Suboptimal diagnostic quality due to motion degraded images. Asymmetric signal abnormality in the right inferior perisylvian cortex and right medial temporal lobe. 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 Pl ease correlate with CSF analysis. MRI of the brain with intravenous contrast is recommended for further evaluation. Absence of territorial involvement mitigates against acute infarction and absence of vasogenic edema mitigates against primary neoplasm. 2. Mild chronic microangiopathic changes and mild age-related global parenchymal volume loss. -CT Head (12/30/18): No evidence of acute intracranial hemorrhage mass effect or midline shift. No significant interval change in the brain parenchyma noted since the prior study. Sphenoid and right maxillary mucosal thickening suspicious for sinusitis. -CT Head (12/27/18): Age-appropriate age related neuro degenerative findings are appreciate without definite acute intracranial pattern by standard CT criteria. Follow-up CT or MRI are available if clinically warranted. Incidental sinusitis as discussed above. -Continue seizure precautions. -Continue current treatment and management -Notify neuro team of any acute change in pt's condition. Betzaida Burk DNP, HAND COMPOSITOR Discussed with Dr. Orellana Status: Acute
--- NOTE | 2019-01-01 16:16 | PN ---
DATE: 01/01/2019 SUBJECTIVE: The patient seen and examined at bedside. She is much more alert, awake and oriented. She ate her lunch today without problems. OBJECTIVE: VITAL SIGNS: As follows. Blood pressure 143/75, temperature 99.3, heart rate 92 and oxygen saturation 100% on 2 liters nasal cannula, respiratory rate 16. HEENT: Head and neck atraumatic. LUNGS: Clear to auscultation bilaterally. HEART: Regular rate and rhythm with S1, S2 normal. ABDOMEN: Soft, nontender, nondistended. MUSCULOSKELETAL: No C/C/E. NEUROLOGIC: The patient moves all extremities spontaneously. SKIN: Moist. PSYCHIATRIC: The patient is alert, awake and oriented x2. LABORATORY DATA: WBC 7.5, hemoglobin 11.7, platelet count 109. Sodium 136, potassium 3.9, chloride 99, carbon dioxide 24, BUN 38, creatinine 3.4, glucose 84, AST 34, ALT 34, total bilirubin 0.9. MEDICATIONS: Tylenol IV, acyclovir, amlodipine, aspirin, PhosLo, clonidine p.r.n. and clonidine patch, Lasix 40 mg IV daily, hydralazine 50 mg p.o. twice a day, losartan, metoprolol 50 mg p.o. twice a day, Versed p.r.n., nitroglycerin topical, Protonix, prednisone 20 mg p.o. twice a day. HSV PCR pending. Urine Legionella pneumophila negative. Influenza negative. ASSESSMENT AND PLAN: This is a 68-year-old lady who presented with altered mental status fever and seizures with MRI and EEG findings suspicious for herpes encephalitis. The patient was started on acyclovir empirically and spinal tap was performed-->which revealed 55 red blood cells and one WBC with relatively low glucose and elevated protein-->findings which may go along with herpes encephalitis picture. Confirmative test is pending. At present time. We will continue with acyclovir IV. The patient is alert, awake and oriented, which is substantial improvement when compared with yesterday and 2 days ago. No signs of clinical seizures. We will continue to target euvolemia, euglycemia, normothermia and oxygen saturation more than 90%. ccm time 40 min Garrett Faith MD JELANI
--- NOTE | 2019-01-01 18:31 | PN ---
DATE: 01/01/2019 REASON FOR THE CONSULTATION AND FOLLOWUP: Elevated troponin, end-stage renal disease, stage IV CKD, admitted with altered mental status. is at the bedside. Little bit awake, but not oriented to time, place and person, is in two-point bernabe restraint. OBJECTIVE: VITAL SIGNS: Temperature afebrile, heart rate 113, and blood pressure 143/77. HEENT: PERRLA. Extraocular muscles intact. NECK: Supple. No carotid bruits or thyromegaly. CHEST: Clear to auscultation. HEART: S1, S2. Regular. ABDOMEN: Soft. EXTREMITIES: Clubbing, cyanosis negative. LABORATORY DATA: WBC 7.5, hemoglobin 11.5, hematocrit 35.8, and platelet count 109. Chemistry shows sodium 132, potassium 3.9, chloride 199, carbon dioxide 24, anion gap of 18, BUN 34, and creatinine 3.4. 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 Yesterday, the patient had electroencephalogram done. Yesterday echo was done that showed preserved left ventricular function, moderate mitral regurgitation, mild tricuspid regurgitation, admitted with altered mental status, borderline positive secondary to end-stage renal disease . The patient denies any chest pain. RECOMMENDATIONS: Aggressive medical treatment. No plan for invasive cardiac workup at this time. Continue aspirin, continue hydralazine, avoid nephrotoxic medication, continue nitroglycerin, continue low-dose beta yuki . We will follow with you. Thank you Dr. Webb, for providing us opportunity in taking care of the patient, Beatriz Badillo. Mohini Calvert MD
--- NOTE | 2019-01-02 00:14 | PN ---
DATE: 01/01/2019 SUBJECTIVE: The patient is seen in the ICU. She is awake, she is alert. She is still very confused, but much more awake and alert today. Her friend is at bedside. She does not recognize me. She does not recognize her friend either. PHYSICAL EXAMINATION: GENERAL: Elderly lady lying in bed in the ICU. VITAL SIGNS: Blood pressure 141/70, heart rate 99, respiratory rate 18-20, temperature 99.3, T max is 99.5. HEENT: Normocephalic, atraumatic, positive pallor. NECK: Supple, no JVD. LUNGS: Bilateral equal air entry, bilateral rhonchi, equal expansion. CARDIAC: S1, S2, regular rate and rhythm, no murmur, no rub. ABDOMEN: Obese, distended, soft, nontender, bowel sounds present. Extremities: No lower extremity edema, puffy face. INTAKE AND OUTPUT: 250/1150. LABORATORY DATA: WBC 7.5, hemoglobin 11.7, hematocrit 35.8, platelets 109. Sodium 136, potassium 3.9, chloride 99, CO2 24, BUN 38, creatinine 3.4, glucose 74, calcium 8.6. Creatinine clearance 11. Urine protein 5 g. CSF glucose low, protein high. CURRENT MEDICATIONS: Acyclovir 500 mg every 24 hours, acyclovir 500 mg post dialysis, Apresoline 50 daily, Catapres p.r.n., Catapres 0.3 patch, Cozaar 100, aspirin 81, Lasix 40 IV daily, Lopressor 50 b.i.d., amlodipine 5, PhosLo, prednisone 20 b.i.d., Protonix, Versed. ASSESSMENT: 1. Altered mental status, sepsis, suspected herpes encephalitis. 2.. 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 3. Immunocompromised host. 4. Severe hypertension. 5. Remains dialysis dependent. 6. Severe anemia. 7... History of breast cancer. PLAN: 1. Clinically somewhat improved, continue acyclovir. 2. Dialysis today, the patient is on dialysis Saturday, and Saturday. 3. Continue current management of hypertension. 4. Follow up spinal fluid cultures. 5. Continue phosphate binders. 6. With poor response to steroids and other treatments, we will try to taper off steroids since the patient remains dialysis dependent. 7. We will discuss with , Guerrero. 8. Case discussed with ICU nursing staff, dialysis staff, caregiver at bedside. More than 35 minutes spent in the care of this critically ill patient. Monserrat French MD
[2019-01-02] MEDS: Nitroglycerin 2% Ointment Foilpak UD TOP SCH ×4 (00:15→18:05)
[2019-01-02 05:42] LABS: HEMOGLOBIN 10.2 g/dL (12.0-16.0); LYMPH # 0.6 (1.2-3.4); LYMPH % 9.7 % (22.0-35.0); MEAN CELL VOLUME 95.4 fl (80.0-105.0); MEAN CORPUSCULAR HGB CONC 32.5 g/dl (31.0-37.0); MEAN PLATELET VOLUME 10.8 fl (7.0-11.0); MONO # 0.2 (0.1-0.6); MONO % 2.9 % (1.0-6.0); RBC 3.29 10^6/uL (3.5-6.1); RED CELL DISTRIBUTION WIDTH 19.4 % (11.5-14.5); WHITE BLOOD COUNT 6.1 10^3/uL (4.5-11.0)
[2019-01-02 06:31] LABS: ALB/GLOB RATIO 1.2 (1.1-1.8); ALBUMIN 2.8 g/dL (3.0-4.8); CALCIUM 7.7 mg/dL (8.4-10.5)
[2019-01-02] MEDS ORDERED: Potassium Chloride 20 mEq ER Tab PO STA (06:48)
[2019-01-02] MEDS: Pantoprazole 40 mg EC Tab PO SCH (07:30)
--- NOTE | 2019-01-02 10:08 | CP.PCM.PN ---
<Tl Gaxiola - Last Filed: 01/02/19 10:05> Subjective - Date & Time of Evaluation Date of Evaluation: 01/02/19 Time of Evaluation: 09:05 - Subjective Subjective: Tl Gaxiola D.O. PGY-3, Internal Medicine Resident, Infectious Disease Progress Note 68 year old female with a PMH of Daphnie's vasculitis, ESRD on HD T/T/S, breast CA and HTN who presented for tachycardia, found to have sepsis and HAP and hospital course complicated by altered mental status concerning for herpes encephalitis. Patient was seen and examined at bedside. Boyfriend present at bedside. Improved somewhat. Able to remember where she is and that she is and they understood having a hard time of the year. Objective - Vital Signs/Intake and Output Vital Signs (last 24 hours): Temp Pulse Resp BP Pulse Ox 98.9 F 116 H 20 141/76 100 01/02/19 06:00 01/02/19 09:41 01/02/19 06:00 01/02/19 09:41 01/02/19 06:00 Intake and Output: 01/02/19 01/02/19 06:59 18:59 Intake Total 360 Output Total 1200 Balance -840 - Medications Medications: Current Medications Amlodipine Besylate (Norvasc) 5 mg PO DAILY [facility] Last Admin: 01/02/19 09:40 Dose: 5 mg Aspirin (Ecotrin) 81 mg PO DAILY [facility] Last Admin: 01/02/19 09:41 Dose: 81 mg Calcium Acetate (Phoslo) 667 mg PO BID [facility] Last Admin: 01/02/19 09:41 Dose: 667 mg Clonidine HCl (Catapres-Tts3 0.3 Mg/24 Hr) 1 patch TD Q7D@1000 [facility] Last Admin: 12/30/18 12:07 Dose: 1 patch Clonidine HCl (Catapres) 0.1 mg PO Q4H PRN PRN Reason: hypertension Last Admin: 12/31/18 02:24 Dose: 0.1 mg Heparin Sodium (Porcine) (Heparin) 5,000 units SC Q12 [facility]; Protocol Last Admin: 01/02/19 09:40 Dose: 5,000 units Hydralazine HCl (Apresoline) 50 mg PO BID [facility] Last Admin: 01/02/19 09:40 Dose: 50 mg Acetaminophen (Ofirmev) 1,000 mg in 100 mls @ 400 mls/hr IVPB Q6H PRN PRN Reason: Temperature Stop: 01/02/19 11:53 Acyclovir 500 mg/ Sodium (Chloride) 100 mls @ 100 mls/hr IV TTS [facility]; Protocol Last Admin: 01/01/19 20:39 Dose: 100 mls/hr Acyclovir 500 mg/ Sodium (Chloride) 100 mls @ 100 mls/hr IV Q24H [facility]; Protocol Last Admin: 01/01/19 12:23 Dose: 100 mls/hr Losartan Potassium (Cozaar) 100 mg PO DAILY [facility] Last Admin: 01/02/19 09:40 Dose: 100 mg Metoprolol Tartrate (Lopressor) 50 mg PO BID [facility] Last Admin: 01/02/19 09:41 Dose: 50 mg Midazolam HCl (Versed Inj) 2 mg IVP Q4 PRN PRN Reason: Agitation Nitroglycerin (Nitro-Bid 2% Oint) 1 ea TOP Q6H [facility] Last Admin: 01/02/19 06:38 Dose: 1 ea Pantoprazole Sodium (Protonix Ec Tab) 40 mg PO ACB [facility] Last Admin: 01/02/19 07:30 Dose: 40 mg Prednisone (Prednisone Tab) 20 mg PO BID [facility] Last Admin: 01/02/19 09:41 Dose: 20 mg - Labs Labs: 01/02/19 05:08 01/02/19 05:08 - Constitutional Appears: Non-toxic, No Acute Distress - Head Exam Head Exam: ATRAUMATIC, NORMOCEPHALIC - Eye Exam Eye Exam: EOMI. absent: Scleral icterus - ENT Exam ENT Exam: Mucous Membranes Moist, Normal Oropharynx - Neck Exam Neck Exam: Normal Inspection. absent: Meningismus - Respiratory Exam Respiratory Exam: absent: Rhonchi, Wheezes - Cardiovascular Exam Cardiovascular Exam: +S1, +S2. absent: Gallop, Rubs - GI/Abdominal Exam GI & Abdominal Exam: Soft. absent: Tenderness - Extremities Exam Extremities Exam: absent: Calf Tenderness - Neurological Exam Additional comments: awake, alert, confused, oriented to self, place, follows simple commands, SUGAR - Skin Skin Exam: Dry, Warm Assessment and Plan - Assessment and Plan (Free Text) Assessment: 68 year old female with a PMH of Daphnie's vasculitis, ESRD on HD T/T/S, breast CA and HTN who presented for tachycardia, found to have sepsis and HAP and hospital course complicated by altered mental status concerning for herpes encephalitis. Plan: Sepsis HAP Altered mental status with suspected herpes encephalitis Both clinically and brain MRI consistent with herpes encephalitis Pending CSF serology Continue with acyclovir daily and right after dialysis Neurology following Patient was seen and examined and case will be discussed with attending physician Thank you for the pleasure participating in the care of this interesting patient <Ramana Haywood - Last Filed: 01/02/19 12:34> Objective - Vital Signs/Intake and Output Vital Signs (last 24 hours): Temp Pulse Resp BP Pulse Ox 98.9 F 121 H 20 141/76 100 01/02/19 06:00 01/02/19 10:00 01/02/19 06:00 01/02/19 09:41 01/02/19 06:00 Intake and Output: 01/02/19 01/02/19 06:59 18:59 Intake Total 360 Output Total 1200 Balance -840 - Medications Medications: Current Medications Amlodipine Besylate (Norvasc) 5 mg PO DAILY [facility] Last Admin: 01/02/19 09:40 Dose: 5 mg Aspirin (Ecotrin) 81 mg PO DAILY [facility] Last Admin: 01/02/19 09:41 Dose: 81 mg Calcium Acetate (Phoslo) 667 mg PO BID [facility] Last Admin: 01/02/19 09:41 Dose: 667 mg Clonidine HCl (Catapres-Tts3 0.3 Mg/24 Hr) 1 patch TD Q7D@1000 [facility] Last Admin: 12/30/18 12:07 Dose: 1 patch Clonidine HCl (Catapres) 0.1 mg PO Q4H PRN PRN Reason: hypertension Last Admin: 12/31/18 02:24 Dose: 0.1 mg Heparin Sodium (Porcine) (Heparin) 5,000 units SC Q12 [facility]; Protocol Last Admin: 01/02/19 09:40 Dose: 5,000 units Hydralazine HCl (Apresoline) 50 mg PO BID [facility] Last Admin: 01/02/19 09:40 Dose: 50 mg Acyclovir 500 mg/ Sodium (Chloride) 100 mls @ 100 mls/hr IV TTS [facility]; Protocol Last Admin: 01/01/19 20:39 Dose: 100 mls/hr Acyclovir 500 mg/ Sodium (Chloride) 100 mls @ 100 mls/hr IV Q24H [facility]; Protocol Last Admin: 01/02/19 10:51 Dose: 100 mls/hr Losartan Potassium (Cozaar) 100 mg PO DAILY [facility] Last Admin: 01/02/19 09:40 Dose: 100 mg Metoprolol Tartrate (Lopressor) 50 mg PO BID [facility] Last Admin: 01/02/19 09:41 Dose: 50 mg Midazolam HCl (Versed Inj) 2 mg IVP Q4 PRN PRN Reason: Agitation Nitroglycerin (Nitro-Bid 2% Oint) 1 ea TOP Q6H [facility] Last Admin: 01/02/19 06:38 Dose: 1 ea Pantoprazole Sodium (Protonix Ec Tab) 40 mg PO ACB [facility] Last Admin: 01/02/19 07:30 Dose: 40 mg Prednisone (Prednisone Tab) 20 mg PO BID [facility] Last Admin: 01/02/19 09:41 Dose: 20 mg - Labs Labs: 01/02/19 05:08 01/02/19 05:08 Attending/Attestation - Attestation I have personally seen and examined this patient.: Yes I have fully participated in the care of the patient.: Yes I have reviewed all pertinent clinical information, including history, physical exam and plan: Yes
[2019-01-02] MEDS: Acyclovir 500 MG in Sodium Chloride 0.9% 100 ML IV SCH (10:51)
--- NOTE | 2019-01-02 12:24 | CP.CCUPN ---
<Vega Bhakta - Last Filed: 01/02/19 12:21> CCU Subjective - Physician Review Events Since Last Encounter (Free Text): 01/02/19 12:21 Pt confused, no acute events overnight. Subjective (Free Text): 01/02/19 12:21 Pt seen and examined this morning at bedside in the ICU, no new complaints Critical Care Time Spent (in minutes): 45 CCU Objective - Vital Signs / Intake & Output Vital Signs (Last 4 hours): Vital Signs Pulse BP 01/02/19 10:00 121 H 01/02/19 09:41 116 H 141/76 01/02/19 09:40 104 H 141/76 Intake and Output (Last 8hrs): Intake & Output 01/01/19 01/02/19 01/02/19 22:59 06:59 14:59 Intake Total 100 360 Output Total 300 1200 Balance -200 -840 Weight 137 lb 1 oz Intake: IV 100 120 Right Chest Permacath 100 120 Oral 240 Output: Urine 300 200 Urine, Voided 300 200 Other 1000 Other: Voiding Method Incontinent - Physical Exam Physical Exam Limitations: Positive for: Altered Mental Status Head: Positive for: Atraumatic, Normocephalic Extroacular Muscles: Positive for: EOMI Mouth: Positive for: Moist Mucous Membranes Neck: Positive for: Normal Range of Motion Respiratory/Chest: Positive for: Clear to Auscultation, Good Air Exchange. Negative for: Respiratory Distress, Accessory Muscle Use Cardiovascular: Positive for: Normal S1, S2, Tachycardic. Negative for: Murmurs Abdomen: Positive for: Tenderness, Normal Bowel Sounds. Negative for: Distention Upper Extremity: Positive for: Normal Inspection. Negative for: Cyanosis, Edema Lower Extremity: Positive for: Normal Inspection Skin: Positive for: Warm, Dry, Normal Color. Negative for: Rashes - Medications Active Medications: Active Medications Generic Name Dose Route Start Last Admin Trade Name Freq PRN Reason Stop Dose Admin Amlodipine Besylate 5 mg 12/31/18 10:00 01/02/19 09:40 Norvasc PO 5 mg DAILY BAKARI Administration Aspirin 81 mg 12/30/18 10:00 01/02/19 09:41 Ecotrin PO 81 mg DAILY BAKARI Administration Calcium Acetate 667 mg 12/27/18 18:00 01/02/19 09:41 Phoslo PO 667 mg BID BAKARI Administration Clonidine HCl 1 patch 12/30/18 11:30 12/30/18 12:07 Catapres-Tts3 0.3 Mg/24 Hr TD 1 patch Q7D@1000 BAKARI Administration Clonidine HCl 0.1 mg 12/30/18 12:34 12/31/18 02:24 Catapres PO 0.1 mg Q4H PRN Administration hypertension Heparin Sodium (Porcine) 5,000 units 01/01/19 22:00 01/02/19 09:40 Heparin SC 5,000 units Q12 BAKARI Administration Protocol Hydralazine HCl 50 mg 12/27/18 18:00 01/02/19 09:40 Apresoline PO 50 mg BID BAKARI Administration Acyclovir 500 mg/ Sodium 100 mls @ 100 mls/hr 01/01/19 13:00 01/01/19 20:39 Chloride IV 100 mls/hr TTS BAKARI Administration Protocol Acyclovir 500 mg/ Sodium 100 mls @ 100 mls/hr 01/01/19 11:15 01/02/19 10:51 Chloride IV 100 mls/hr Q24H BAKARI Administration Protocol Losartan Potassium 100 mg 12/29/18 10:00 01/02/19 09:40 Cozaar PO 100 mg DAILY BAKARI Administration Metoprolol Tartrate 50 mg 12/27/18 18:00 01/02/19 09:41 Lopressor PO 50 mg BID BAKARI Administration Midazolam HCl 2 mg 12/31/18 08:12 Versed Inj IVP Q4 PRN Agitation Nitroglycerin 1 ea 12/29/18 18:15 01/02/19 06:38 Nitro-Bid 2% Oint TOP 1 ea Q6H BAKARI Administration Pantoprazole Sodium 40 mg 12/30/18 07:30 01/02/19 07:30 Protonix Ec Tab PO 40 mg ACB BAKARI Administration Prednisone 20 mg 12/29/18 16:49 01/02/19 09:41 Prednisone Tab PO 20 mg BID BAKARI Administration - Patient Studies Lab Studies: Microbiology Studies 12/31/18 14:15 Gram Stain - Final Cerebral Spinal Fluid CSF Culture - Preliminary NO GROWTH AFTER 2 DAYS 12/29/18 20:52 Blood Culture - Preliminary Blood-Venous NO GROWTH AFTER 3 DAYS 12/29/18 20:52 Blood Culture - Preliminary Blood-Venous NO GROWTH AFTER 3 DAYS 12/27/18 14:50 Blood Culture - Final Blood-Venous NO GROWTH AFTER 5 DAYS Gram Stain - Final TEST NOT PERFORMED 12/27/18 13:45 Blood Culture - Final Blood-Venous NO GROWTH AFTER 5 DAYS Gram Stain - Final TEST NOT PERFORMED Lab Studies 01/02/19 01/02/19 01/02/19 Range/Units 11:21 05:08 05:08 WBC 6.1 (4.5-11.0) 10^3/uL RBC 3.29 L (3.5-6.1) 10^6/uL Hgb 10.2 L (12.0-16.0) g/dL Hct 31.4 L (36.0-48.0) % MCV 95.4 (80.0-105.0) fl MCH 31.0 (25.0-35.0) pg MCHC 32.5 (31.0-37.0) g/dl RDW 19.4 H (11.5-14.5) % Plt Count 108 L (120.0-450.0) 10^3/uL MPV 10.8 (7.0-11.0) fl Neut % (Auto) 87.4 H (50.0-68.0) % Lymph % (Auto) 9.7 L (22.0-35.0) % [place] % (Auto) 2.9 (1.0-6.0) % Eos % (Auto) 0.0 L (1.5-5.0) % Baso % (Auto) 0.0 (0.0-3.0) % Lymph # (Auto) 0.6 L (1.2-3.4) [place] # (Auto) 0.2 (0.1-0.6) Eos # (Auto) 0.0 (0.0-0.7) Baso # (Auto) 0.00 (0.0-2.0) K/mm3 Absolute Neuts (auto) 5.34 (1.4-6.5) Sodium 134 (132-148) mmol/L Potassium 3.1 L (3.6-5.0) mmol/L Chloride 98 (98-107) mmol/L Carbon Dioxide 29 (21-33) mmol/L Anion Gap 10 (10-20) BUN 26 H (7-21) mg/dL Creatinine 2.2 H (0.7-1.2) mg/dl Est GFR ( Amer) 27 Est GFR (Non-Af Amer) 22 POC Glucose (mg/dL) 89 (65-110) mg/dL Random Glucose 87 (70-110) mg/dL Calcium 7.7 L (8.4-10.5) mg/dL Total Bilirubin 0.6 (0.2-1.3) mg/dL AST 28 (14-36) U/L ALT 22 (7-56) U/L Alkaline Phosphatase 64 (38-126) U/L Total Protein 5.2 L (5.8-8.3) g/dL Albumin 2.8 L (3.0-4.8) g/dL Globulin 2.4 gm/dL Albumin/Globulin Ratio 1.2 (1.1-1.8) CSF Cryptococcus Ag (Not Detected) 01/01/19 01/01/19 01/01/19 Range/Units 21:25 16:22 12:31 WBC (4.5-11.0) 10^3/uL RBC (3.5-6.1) 10^6/uL Hgb (12.0-16.0) g/dL Hct (36.0-48.0) % MCV (80.0-105.0) fl MCH (25.0-35.0) pg MCHC (31.0-37.0) g/dl RDW (11.5-14.5) % Plt Count (120.0-450.0) 10^3/uL MPV (7.0-11.0) fl Neut % (Auto) (50.0-68.0) % Lymph % (Auto) (22.0-35.0) % [place] % (Auto) (1.0-6.0) % Eos % (Auto) (1.5-5.0) % Baso % (Auto) (0.0-3.0) % Lymph # (Auto) (1.2-3.4) [place] # (Auto) (0.1-0.6) Eos # (Auto) (0.0-0.7) Baso # (Auto) (0.0-2.0) K/mm3 Absolute Neuts (auto) (1.4-6.5) Sodium (132-148) mmol/L Potassium (3.6-5.0) mmol/L Chloride (98-107) mmol/L Carbon Dioxide (21-33) mmol/L Anion Gap (10-20) BUN (7-21) mg/dL Creatinine (0.7-1.2) mg/dl Est GFR ( Amer) Est GFR (Non-Af Amer) POC Glucose (mg/dL) 110 122 H 84 (65-110) mg/dL Random Glucose (70-110) mg/dL Calcium (8.4-10.5) mg/dL Total Bilirubin (0.2-1.3) mg/dL AST (14-36) U/L ALT (7-56) U/L Alkaline Phosphatase (38-126) U/L Total Protein (5.8-8.3) g/dL Albumin (3.0-4.8) g/dL Globulin gm/dL Albumin/Globulin Ratio (1.1-1.8) CSF Cryptococcus Ag (Not Detected) 12/31/18 Range/Units 14:15 WBC (4.5-11.0) 10^3/uL RBC (3.5-6.1) 10^6/uL Hgb (12.0-16.0) g/dL Hct (36.0-48.0) % MCV (80.0-105.0) fl MCH (25.0-35.0) pg MCHC (31.0-37.0) g/dl RDW (11.5-14.5) % Plt Count (120.0-450.0) 10^3/uL MPV (7.0-11.0) fl Neut % (Auto) (50.0-68.0) % Lymph % (Auto) (22.0-35.0) % [place] % (Auto) (1.0-6.0) % Eos % (Auto) (1.5-5.0) % Baso % (Auto) (0.0-3.0) % Lymph # (Auto) (1.2-3.4) [place] # (Auto) (0.1-0.6) Eos # (Auto) (0.0-0.7) Baso # (Auto) (0.0-2.0) K/mm3 Absolute Neuts (auto) (1.4-6.5) Sodium (132-148) mmol/L Potassium (3.6-5.0) mmol/L Chloride (98-107) mmol/L Carbon Dioxide (21-33) mmol/L Anion Gap (10-20) BUN (7-21) mg/dL Creatinine (0.7-1.2) mg/dl Est GFR ( Amer) Est GFR (Non-Af Amer) POC Glucose (mg/dL) (65-110) mg/dL Random Glucose (70-110) mg/dL Calcium (8.4-10.5) mg/dL Total Bilirubin (0.2-1.3) mg/dL AST (14-36) U/L ALT (7-56) U/L Alkaline Phosphatase (38-126) U/L Total Protein (5.8-8.3) g/dL Albumin (3.0-4.8) g/dL Globulin gm/dL Albumin/Globulin Ratio (1.1-1.8) CSF Cryptococcus Ag Not detected (Not Detected) Laboratory Results - last 24 hr 12/31/18 01/01/19 01/01/19 14:15 12:31 16:22 WBC RBC Hgb Hct MCV MCH MCHC RDW Plt Count MPV Neut % (Auto) Lymph % (Auto) [place] % (Auto) Eos % (Auto) Baso % (Auto) Lymph # (Auto) [place] # (Auto) Eos # (Auto) Baso # (Auto) Absolute Neuts (auto) Sodium Potassium Chloride Carbon Dioxide Anion Gap BUN Creatinine Est GFR ( Amer) Est GFR (Non-Af Amer) POC Glucose (mg/dL) 84 122 H Random Glucose Calcium Total Bilirubin AST ALT Alkaline Phosphatase Total Protein Albumin Globulin Albumin/Globulin Ratio CSF Cryptococcus Ag Not detected 01/01/19 01/02/19 01/02/19 21:25 05:08 05:08 WBC 6.1 RBC 3.29 L Hgb 10.2 L Hct 31.4 L MCV 95.4 MCH 31.0 MCHC 32.5 RDW 19.4 H Plt Count 108 L MPV 10.8 Neut % (Auto) 87.4 H Lymph % (Auto) 9.7 L [place] % (Auto) 2.9 Eos % (Auto) 0.0 L Baso % (Auto) 0.0 Lymph # (Auto) 0.6 L [place] # (Auto) 0.2 Eos # (Auto) 0.0 Baso # (Auto) 0.00 Absolute Neuts (auto) 5.34 Sodium 134 Potassium 3.1 L Chloride 98 Carbon Dioxide 29 Anion Gap 10 BUN 26 H Creatinine 2.2 H Est GFR ( Amer) 27 Est GFR (Non-Af Amer) 22 POC Glucose (mg/dL) 110 Random Glucose 87 Calcium 7.7 L Total Bilirubin 0.6 AST 28 ALT 22 Alkaline Phosphatase 64 Total Protein 5.2 L Albumin 2.8 L Globulin 2.4 Albumin/Globulin Ratio 1.2 CSF Cryptococcus Ag 01/02/19 11:21 WBC RBC Hgb Hct MCV MCH MCHC RDW Plt Count MPV Neut % (Auto) Lymph % (Auto) [place] % (Auto) Eos % (Auto) Baso % (Auto) Lymph # (Auto) [place] # (Auto) Eos # (Auto) Baso # (Auto) Absolute Neuts (auto) Sodium Potassium Chloride Carbon Dioxide Anion Gap BUN Creatinine Est GFR ( Amer) Est GFR (Non-Af Amer) POC Glucose (mg/dL) 89 Random Glucose Calcium Total Bilirubin AST ALT Alkaline Phosphatase Total Protein Albumin Globulin Albumin/Globulin Ratio CSF Cryptococcus Ag Fingerstick Blood Sugar Results: 110 Critical Care Progress Note - Nutrition Nutrition: Nutrition Category Date Time Status Renal Diet [DIET] Diets 12/27/18 Dinner Ordered Assessment/Plan - Assessment and Plan (Free Text) Assessment: Pt is a 68yo female with a PMH of [facility], ESRD on HD, HTN taking steroids chronically who was admitted for confusion, AMS and later experienced new onset seizures. Plan: Neuro - lumbar puncture successful 12/31/18 - CSF culture, no growth 2 days - HSV PCR pending - CSF clear, WBC 1, RBC 54, Glucose 39, protein 73 - VDRL pending - MRI brain w/o contrast: findings most likely represent focal encephalitis. Involvement of parietal lobe and temporal lobe. - Video EEG: abnormal awake and sleep video EEG. Frequent Pled like discharges noted in the left temporal region. Encephalopathy indicated by slowing throughout background. No seizures noted. - versed - Neuro consulted, Dr Reyna Earl - Maintain MAP >65 - trop 0.17, 0.16, 0.32, 0.29, 0.25, 0.26 - amlodipine, ASA, clonidine, lasix, hydralazine, cozaar, metoprolol - Cardio consulted, Dr Calvert Pulangelina - Maintain O2 sat >92 - Chest CT shows possible multifocal PNA GI - pantoprazole Heme - monitor H/H - Hgb 10.2 Nephro - Cr 2.2 - BUN 26 - K 3.1, replete PRN - continue to monitor electrolytes Endo - maintain euglycemia ID - no leukocytosis - acyclovir - Blood culture no growth to date - urine culture GPC - ID consulted Dispo: transfer pt to tele today Pt seen, examined, assessment and plan discussed with Dr Yvonne Bhakta PGY1 - Date & Time Date: 01/02/19 Time: 07:00 <Mark Russell - Last Filed: 01/02/19 13:30> CCU Objective - Vital Signs / Intake & Output Vital Signs (Last 4 hours): Vital Signs Pulse BP 01/02/19 10:00 121 H 01/02/19 09:41 116 H 141/76 01/02/19 09:40 104 H 141/76 Intake and Output (Last 8hrs): Intake & Output 01/01/19 01/02/19 01/02/19 22:59 06:59 14:59 Intake Total 100 360 Output Total 300 1200 Balance -200 -840 Weight 137 lb 1 oz Intake: IV 100 120 Right Chest Permacath 100 120 Oral 240 Output: Urine 300 200 Urine, Voided 300 200 Other 1000 Other: Voiding Method Incontinent - Medications Active Medications: Active Medications Generic Name Dose Route Start Last Admin Trade Name Freq PRN Reason Stop Dose Admin Amlodipine Besylate 5 mg 12/31/18 10:00 01/02/19 09:40 Norvasc PO 5 mg DAILY BAKARI Administration Aspirin 81 mg 12/30/18 10:00 01/02/19 09:41 Ecotrin PO 81 mg DAILY BAKARI Administration Calcium Acetate 667 mg 12/27/18 18:00 01/02/19 09:41 Phoslo PO 667 mg BID BAKARI Administration Clonidine HCl 1 patch 12/30/18 11:30 12/30/18 12:07 Catapres-Tts3 0.3 Mg/24 Hr TD 1 patch Q7D@1000 BAKARI Administration Clonidine HCl 0.1 mg 12/30/18 12:34 12/31/18 02:24 Catapres PO 0.1 mg Q4H PRN Administration hypertension Heparin Sodium (Porcine) 5,000 units 01/01/19 22:00 01/02/19 09:40 Heparin SC 5,000 units Q12 BAKARI Administration Protocol Hydralazine HCl 50 mg 12/27/18 18:00 01/02/19 09:40 Apresoline PO 50 mg BID BAKARI Administration Acyclovir 500 mg/ Sodium 100 mls @ 100 mls/hr 01/01/19 13:00 01/01/19 20:39 Chloride IV 100 mls/hr TTS BAKARI Administration Protocol Acyclovir 500 mg/ Sodium 100 mls @ 100 mls/hr 01/01/19 11:15 01/02/19 10:51 Chloride IV 100 mls/hr Q24H BAKARI Administration Protocol Losartan Potassium 100 mg 12/29/18 10:00 01/02/19 09:40 Cozaar PO 100 mg DAILY BAKARI Administration Metoprolol Tartrate 50 mg 12/27/18 18:00 01/02/19 09:41 Lopressor PO 50 mg BID BAKARI Administration Midazolam HCl 2 mg 12/31/18 08:12 Versed Inj IVP Q4 PRN Agitation Nitroglycerin 1 ea 12/29/18 18:15 01/02/19 13:17 Nitro-Bid 2% Oint TOP 1 ea Q6H BAKARI Administration Pantoprazole Sodium 40 mg 12/30/18 07:30 01/02/19 07:30 Protonix Ec Tab PO 40 mg ACB BAKARI Administration Prednisone 20 mg 12/29/18 16:49 01/02/19 09:41 Prednisone Tab PO 20 mg BID BAKARI Administration - Patient Studies Lab Studies: Microbiology Studies 12/31/18 14:15 Gram Stain - Final Cerebral Spinal Fluid CSF Culture - Preliminary NO GROWTH AFTER 2 DAYS 12/29/18 20:52 Blood Culture - Preliminary Blood-Venous NO GROWTH AFTER 3 DAYS 12/29/18 20:52 Blood Culture - Preliminary Blood-Venous NO GROWTH AFTER 3 DAYS 12/27/18 14:50 Blood Culture - Final Blood-Venous NO GROWTH AFTER 5 DAYS Gram Stain - Final TEST NOT PERFORMED 12/27/18 13:45 Blood Culture - Final Blood-Venous NO GROWTH AFTER 5 DAYS Gram Stain - Final TEST NOT PERFORMED Lab Studies 01/02/19 01/02/19 01/02/19 Range/Units 11:21 05:08 05:08 WBC 6.1 (4.5-11.0) 10^3/uL RBC 3.29 L (3.5-6.1) 10^6/uL Hgb 10.2 L (12.0-16.0) g/dL Hct 31.4 L (36.0-48.0) % MCV 95.4 (80.0-105.0) fl MCH 31.0 (25.0-35.0) pg MCHC 32.5 (31.0-37.0) g/dl RDW 19.4 H (11.5-14.5) % Plt Count 108 L (120.0-450.0) 10^3/uL MPV 10.8 (7.0-11.0) fl Neut % (Auto) 87.4 H (50.0-68.0) % Lymph % (Auto) 9.7 L (22.0-35.0) % [place] % (Auto) 2.9 (1.0-6.0) % Eos % (Auto) 0.0 L (1.5-5.0) % Baso % (Auto) 0.0 (0.0-3.0) % Lymph # (Auto) 0.6 L (1.2-3.4) [place] # (Auto) 0.2 (0.1-0.6) Eos # (Auto) 0.0 (0.0-0.7) Baso # (Auto) 0.00 (0.0-2.0) K/mm3 Absolute Neuts (auto) 5.34 (1.4-6.5) Sodium 134 (132-148) mmol/L Potassium 3.1 L (3.6-5.0) mmol/L Chloride 98 (98-107) mmol/L Carbon Dioxide 29 (21-33) mmol/L Anion Gap 10 (10-20) BUN 26 H (7-21) mg/dL Creatinine 2.2 H (0.7-1.2) mg/dl Est GFR ( Amer) 27 Est GFR (Non-Af Amer) 22 POC Glucose (mg/dL) 89 (65-110) mg/dL Random Glucose 87 (70-110) mg/dL Calcium 7.7 L (8.4-10.5) mg/dL Total Bilirubin 0.6 (0.2-1.3) mg/dL AST 28 (14-36) U/L ALT 22 (7-56) U/L Alkaline Phosphatase 64 (38-126) U/L Total Protein 5.2 L (5.8-8.3) g/dL Albumin 2.8 L (3.0-4.8) g/dL Globulin 2.4 gm/dL Albumin/Globulin Ratio 1.2 (1.1-1.8) CSF Cryptococcus Ag (Not Detected) 01/01/19 01/01/19 12/31/18 Range/Units 21:25 16:22 14:15 WBC (4.5-11.0) 10^3/uL RBC (3.5-6.1) 10^6/uL Hgb (12.0-16.0) g/dL Hct (36.0-48.0) % MCV (80.0-105.0) fl MCH (25.0-35.0) pg MCHC (31.0-37.0) g/dl RDW (11.5-14.5) % Plt Count (120.0-450.0) 10^3/uL MPV (7.0-11.0) fl Neut % (Auto) (50.0-68.0) % Lymph % (Auto) (22.0-35.0) % [place] % (Auto) (1.0-6.0) % Eos % (Auto) (1.5-5.0) % Baso % (Auto) (0.0-3.0) % Lymph # (Auto) (1.2-3.4) [place] # (Auto) (0.1-0.6) Eos # (Auto) (0.0-0.7) Baso # (Auto) (0.0-2.0) K/mm3 Absolute Neuts (auto) (1.4-6.5) Sodium (132-148) mmol/L Potassium (3.6-5.0) mmol/L Chloride (98-107) mmol/L Carbon Dioxide (21-33) mmol/L Anion Gap (10-20) BUN (7-21) mg/dL Creatinine (0.7-1.2) mg/dl Est GFR ( Amer) Est GFR (Non-Af Amer) POC Glucose (mg/dL) 110 122 H (65-110) mg/dL Random Glucose (70-110) mg/dL Calcium (8.4-10.5) mg/dL Total Bilirubin (0.2-1.3) mg/dL AST (14-36) U/L ALT (7-56) U/L Alkaline Phosphatase (38-126) U/L Total Protein (5.8-8.3) g/dL Albumin (3.0-4.8) g/dL Globulin gm/dL Albumin/Globulin Ratio (1.1-1.8) CSF Cryptococcus Ag Not detected (Not Detected) Laboratory Results - last 24 hr 12/31/18 01/01/19 01/01/19 14:15 16:22 21:25 WBC RBC Hgb Hct MCV MCH MCHC RDW Plt Count MPV Neut % (Auto) Lymph % (Auto) [place] % (Auto) Eos % (Auto) Baso % (Auto) Lymph # (Auto) [place] # (Auto) Eos # (Auto) Baso # (Auto) Absolute Neuts (auto) Sodium Potassium Chloride Carbon Dioxide Anion Gap BUN Creatinine Est GFR ( Amer) Est GFR (Non-Af Amer) POC Glucose (mg/dL) 122 H 110 Random Glucose Calcium Total Bilirubin AST ALT Alkaline Phosphatase Total Protein Albumin Globulin Albumin/Globulin Ratio CSF Cryptococcus Ag Not detected 01/02/19 01/02/19 01/02/19 05:08 05:08 11:21 WBC 6.1 RBC 3.29 L Hgb 10.2 L Hct 31.4 L MCV 95.4 MCH 31.0 MCHC 32.5 RDW 19.4 H Plt Count 108 L MPV 10.8 Neut % (Auto) 87.4 H Lymph % (Auto) 9.7 L [place] % (Auto) 2.9 Eos % (Auto) 0.0 L Baso % (Auto) 0.0 Lymph # (Auto) 0.6 L [place] # (Auto) 0.2 Eos # (Auto) 0.0 Baso # (Auto) 0.00 Absolute Neuts (auto) 5.34 Sodium 134 Potassium 3.1 L Chloride 98 Carbon Dioxide 29 Anion Gap 10 BUN 26 H Creatinine 2.2 H Est GFR ( Amer) 27 Est GFR (Non-Af Amer) 22 POC Glucose (mg/dL) 89 Random Glucose 87 Calcium 7.7 L Total Bilirubin 0.6 AST 28 ALT 22 Alkaline Phosphatase 64 Total Protein 5.2 L Albumin 2.8 L Globulin 2.4 Albumin/Globulin Ratio 1.2 CSF Cryptococcus Ag Critical Care Progress Note - Nutrition Nutrition: Nutrition Category Date Time Status Renal Diet [DIET] Diets 12/27/18 Dinner Ordered Assessment/Plan - Assessment and Plan (Free Text) Plan: Patient seen and examined on rounds with resident, agree with note with following additions/exceptions: Patient is 68yo female with PMHx of [facility], on HD, HTN, admitted with AMS, seizure, HSV encaphilitis Currently afebrile, HD stable, comfortable in NAD, awake, alert, following commands MRI brain results noted VEEG completed NEurology following On Acyclovir Overall mental status singificantly improved Seizure AMS Hx of [facility] on chronic steroids ESRD on HD, TuThSat HTN Recommend: - supp o2 as needed, duonebs PRN - Abx as per ID, including 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
[2019-01-02] MEDS ORDERED: levETIRAcetam 1000mg/100ml NS 100 ML IV SCH (13:45)
--- NOTE | 2019-01-02 14:20 | CP.PCM.PCO ---
Physician Communication Note - Physician Communication Note Physician Communication Note: patient confused, Herpes Encephalitis-on IV Acycolvir,Seizures-on IV Keppra
--- NOTE | 2019-01-02 14:21 | CP.PCM.PCO ---
Physician Communication Note - Physician Communication Note Physician Communication Note: awaits transfer out of ICU, PT eval pending
[2019-01-02] MEDS: levETIRAcetam 1000mg/100ml NS 100 ML IVPB SCH (14:41)
--- NOTE | 2019-01-02 14:48 | CP.PCM.PN ---
<Eliel Cheek - Last Filed: 01/02/19 19:47> Subjective - Date & Time of Evaluation Date of Evaluation: 01/02/19 Time of Evaluation: 06:00 - Subjective Subjective: Patient seen and evaluated bedside in ICU. Patient alert, awake, but has bouts on confusion. Denies any complaints. Objective - Vital Signs/Intake and Output Vital Signs (last 24 hours): Temp Pulse Resp BP Pulse Ox 98.9 F 121 H 20 141/76 100 01/02/19 06:00 01/02/19 10:00 01/02/19 06:00 01/02/19 09:41 01/02/19 06:00 Intake and Output: 01/02/19 01/02/19 06:59 18:59 Intake Total 360 Output Total 1200 Balance -840 - Medications Medications: Current Medications Amlodipine Besylate (Norvasc) 5 mg PO DAILY [facility] Last Admin: 01/02/19 09:40 Dose: 5 mg Aspirin (Ecotrin) 81 mg PO DAILY [facility] Last Admin: 01/02/19 09:41 Dose: 81 mg Calcium Acetate (Phoslo) 667 mg PO BID [facility] Last Admin: 01/02/19 09:41 Dose: 667 mg Clonidine HCl (Catapres-Tts3 0.3 Mg/24 Hr) 1 patch TD Q7D@1000 [facility] Last Admin: 12/30/18 12:07 Dose: 1 patch Clonidine HCl (Catapres) 0.1 mg PO Q4H PRN PRN Reason: hypertension Last Admin: 12/31/18 02:24 Dose: 0.1 mg Heparin Sodium (Porcine) (Heparin) 5,000 units SC Q12 [facility]; Protocol Last Admin: 01/02/19 09:40 Dose: 5,000 units Hydralazine HCl (Apresoline) 50 mg PO BID [facility] Last Admin: 01/02/19 09:40 Dose: 50 mg Acyclovir 500 mg/ Sodium (Chloride) 100 mls @ 100 mls/hr IV TTS [facility]; Protocol Last Admin: 01/01/19 20:39 Dose: 100 mls/hr Acyclovir 500 mg/ Sodium (Chloride) 100 mls @ 100 mls/hr IV Q24H [facility]; Protocol Last Admin: 01/02/19 10:51 Dose: 100 mls/hr Levetiracetam (Keppra 1000mg/100ml Ns) 100 mls @ 240 mls/hr IVPB DAILY [facility] Losartan Potassium (Cozaar) 100 mg PO DAILY [facility] Last Admin: 01/02/19 09:40 Dose: 100 mg Metoprolol Tartrate (Lopressor) 50 mg PO BID [facility] Last Admin: 01/02/19 09:41 Dose: 50 mg Midazolam HCl (Versed Inj) 2 mg IVP Q4 PRN PRN Reason: Agitation Nitroglycerin (Nitro-Bid 2% Oint) 1 ea TOP Q6H [facility] Last Admin: 01/02/19 13:17 Dose: 1 ea Pantoprazole Sodium (Protonix Ec Tab) 40 mg PO ACB [facility] Last Admin: 01/02/19 07:30 Dose: 40 mg Prednisone (Prednisone Tab) 20 mg PO BID [facility] Last Admin: 01/02/19 09:41 Dose: 20 mg - Labs Labs: 01/02/19 05:08 01/02/19 05:08 - Constitutional Appears: Non-toxic, No Acute Distress - Head Exam Head Exam: ATRAUMATIC, NORMAL INSPECTION, NORMOCEPHALIC - Eye Exam Eye Exam: EOMI, Normal appearance - ENT Exam ENT Exam: Mucous Membranes Moist - Respiratory Exam Respiratory Exam: Clear to Ausculation Bilateral, NORMAL BREATHING PATTERN - Cardiovascular Exam Cardiovascular Exam: REGULAR RHYTHM, +S1, +S2 - Neurological Exam Neurological Exam: Alert, Awake, Reflexes Normal. absent: Abnormal Gait, Motor Sensory Deficit, Oriented x3 Neuro motor strength exam: Left Upper Extremity: 4, Right Upper Extremity: 4, Left Lower Extremity: 4, Right Lower Extremity: 4 Additional comments: alert to person, place but not time Assessment and Plan - Assessment and Plan (Free Text) Plan: Assessment and Plan (1) Altered mental state Assessment & Plan: -MRI Brain (12/30/18): 1. Suboptimal diagnostic quality due to motion degraded images. Asymmetric signal abnormality in the right inferior perisylvian cortex and right medial temporal lobe. 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 Please correlate with CSF analysis. MRI of the brain with intravenous contrast is recommended for further evaluation. Absence of territorial involvement mitigates against acute infarction and absence of vasogenic edema mitigates against primary neoplasm. 2. Mild chronic microangiopathic changes and mild age-related global parenchymal volume loss. -CT Head (12/30/18): No evidence of acute intracranial hemorrhage mass effect or midline shift. No significant interval change in the brain parenchyma noted since the prior study. Sphenoid and right maxillary mucosal thickening suspicious for sinusitis. -CT Head (12/27/18): Age-appropriate age related neuro degenerative findings are appreciate without definite acute intracranial pattern by standard CT criteria. Follow-up CT or MRI are available if clinically warranted. Incidental sinusitis as discussed above. -CSF no growth -LP specimen results reviewed; elevated protein at 73; wbc normal. 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 Status: Acute (2) Seizure Assessment & Plan: -VEEG (12/30/18): The First 6 hours of this Video EEG show that this is an abnormal awake and sleep video EEG. There are frequent Pled like discharges noted in the left temporal region, as well as right temporal focal slowing. There is also encephalopathy indicated by generalized slowing throughout the background. There were no clinical or subclinical seizures noted. PLEDS or periodic sharp waves can be seen post stroke, post seizure or due to herpes encephalitis. Clinical correlation is required. -MRI Brain (12/30/18): 1. Suboptimal diagnostic quality due to motion degraded i mages. Asymmetric signal abnormality in the right inferior perisylvian cortex and right medial temporal lobe. 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 Please correlate with CSF analysis. MRI of the brain with intravenous contrast is recommended for further evaluation. Absence of territorial involvement mitigates against acute infarction and absence of vasogenic edema mitigates against primary neoplasm. 2. Mild chronic microangiopathic changes and mild age-related global parenchymal volume loss. -CT Head (12/30/18): No evidence of acute intracranial hemorrhage mass effect or midline shift. No significant interval change in the brain parenchyma noted since the prior study. Sphenoid and right maxillary mucosal thickening suspic ious for sinusitis. -CT Head (12/27/18): Age-appropriate age related neuro degenerative findings are a ppreciate without definite acute intracranial pattern by standard CT criteria. -temporal lobe on MRI appears to have restrictive diffuse pattern consistent with seizure focus, will start seizure prophylaxis and treatment -keppra 1000mg Q24 started renally dosed -Continue seizure precautions. Status: Acute <Korya,Tobi - Last Filed: 01/07/19 12:17> Objective - Vital Signs/Intake and Output Vital Signs (last 24 hours): Temp Pulse Resp BP Pulse Ox 97.9 F 78 19 154/87 H 96 01/07/19 06:00 01/07/19 09:52 01/07/19 06:00 01/07/19 09:52 01/07/19 06:00 Intake and Output: 01/07/19 01/07/19 06:59 18:59 Intake Total 120 Balance 120 - Medications Medications: Current Medications Aspirin (Ecotrin) 81 mg PO DAILY [facility] Last Admin: 01/07/19 09:45 Dose: 81 mg Calcium Acetate (Phoslo) 667 mg PO BID [facility] Last Admin: 01/07/19 09:45 Dose: 667 mg Clonidine HCl (Catapres-Tts3 0.3 Mg/24 Hr) 1 patch TD Q7D@1000 [facility] Last Admin: 01/06/19 12:55 Dose: 1 patch Clonidine HCl (Catapres) 0.1 mg PO Q4H PRN PRN Reason: hypertension Last Admin: 01/03/19 05:21 Dose: 0.1 mg Diltiazem HCl (Cardizem) 60 mg PO TID [facility] Last Admin: 01/07/19 09:52 Dose: 60 mg Heparin Sodium (Porcine) (Heparin) 5,000 units SC Q12 [facility]; Protocol Last Admin: 01/07/19 09:44 Dose: 5,000 units Hydralazine HCl (Apresoline) 50 mg PO BID [facility] Last Admin: 01/07/19 09:51 Dose: 50 mg Levetiracetam 750 mg/ Sodium (Chloride) 107.5 mls @ 215 mls/hr IVPB Q12 [facility] Last Admin: 01/07/19 09:59 Dose: 215 mls/hr Acyclovir 500 mg/ Sodium (Chloride) 100 mls @ 100 mls/hr IV Q24H [facility]; Protocol Last Admin: 01/07/19 06:16 Dose: 100 mls/hr Acyclovir 500 mg/ Sodium (Chloride) 100 mls @ 100 mls/hr IV TuThSa@1300 [facility]; Protocol Isosorbide Mononitrate (Imdur Er) 30 mg PO DAILY [facility] Last Admin: 01/07/19 09:45 Dose: 30 mg Losartan Potassium (Cozaar) 100 mg PO DAILY [facility] Last Admin: 01/07/19 09:45 Dose: 100 mg Metoprolol Tartrate (Lopressor) 75 mg PO BID [facility] Last Admin: 01/07/19 09:52 Dose: 75 mg Midazolam HCl (Versed Inj) 2 mg IVP Q4 PRN PRN Reason: Agitation Pantoprazole Sodium (Protonix Ec Tab) 40 mg PO ACB [facility] Last Admin: 01/07/19 09:45 Dose: 40 mg Prednisone (Prednisone Tab) 10 mg PO QPM [facility] Last Admin: 01/06/19 18:34 Dose: 10 mg Prednisone (Prednisone Tab) 20 mg PO QAM [facility] Last Admin: 01/07/19 09:45 Dose: 20 mg - Labs Labs: 01/06/19 08:40 01/06/19 08:40 Attending/Attestation - Attestation I have personally seen and examined this patient.: Yes I have fully participated in the care of the patient.: Yes I have reviewed all pertinent clinical information, including history, physical exam and plan: Yes Notes (Text): I agree with the assessment and plan. -keppra 1000mg Q24 started renally dosed -Continue seizure precautions.
--- NOTE | 2019-01-02 17:14 | PN ---
DATE: 01/02/2019 SUBJECTIVE: The patient is a 68-year-old female who was admitted on 12/27/2018 with lethargy and mental status changes. She was quite obtunded for quite awhile. 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 Earlier in the hospital stay. she had some bursts of SVT which were treated with beta-blockers. The patient was followed by Dr. Haywood, the Infectious Disease specialist, Dr. Calvert, the core extruder; Dr. Randall, her director of family service center. Approximately 3 or 4 days ago after dialysis treatment, the patient suffered a seizure. For this, she was taken to the Intensive Care Unit. CAT scan and EEG were suggestive of a possible herpes encephalitis. Lumbar puncture was performed by Dr. 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 The patient is currently being treated with acyclovir 500 mg every 24 hours plus 500 mg IV after each dialysis treatment. She is also on aspirin 81 mg, alprazolam 50 mg twice a day, Lasix 40 mg, metoprolol 50 mg twice a day, Norvasc 5 mg, PhosLo twice a day, Protonix 40 mg once a day, prednisone 20 mg twice a day, and clonidine patch 0.3 mg every 7 days. When seen today, the patient is much more awake. She is responding to questions, her /significant other is at bedside. She denies headaches, chest pain, shortness of breath, abdominal pains. PHYSICAL EXAMINATION: VITAL SIGNS: Stable. HEART: Sounds are regular. LUNGS: Clear anteriorly. ABDOMEN: Soft and nontender. LABORATORY DATA: Morning laboratory studies shows that the white blood cell count is 6.1, hemoglobin and hematocrit are 10.2 and 31.4, platelet count is 108. Sodium is 134, potassium 3.1, blood urea nitrogen 26, creatinine 2.2 and glucose is 87. ASSESSMENT AND PLAN: At this point, we are continuing with the current regimen, potassium is to be supplemented, and we are continuing to follow the patient closely. Mars Webb MD
--- NOTE | 2019-01-02 19:46 | PN ---
DATE: 01/02/2019 SUBJECTIVE: The patient is seen lying in bed in the ICU. is at bedside. She is arousable. She is groggy. She is oriented x2. Mental status is waxing and waning. When I entered the room, she did not recognize me, but towards the end of the visit she knew who I was. She complains of being very tired. She denies any pain. PHYSICAL EXAMINATION GENERAL: Elderly lady lying in bed in the ICU. VITAL SIGNS: Blood pressure 141/76, heart rate 116, respiratory rate 14 to 16, temperature 98.9, T-max is 98.9. HEENT: Normocephalic, atraumatic, positive pallor. NECK: The neck supple, no JVD. LUNGS: Bilateral equal air entry, bilateral equal expansion. CARDIAC: S1, S2, regular rate and rhythm, no murmur, no rub. ABDOMEN: Obese, distended, soft, nontender, bowel sounds present. EXTREMITIES: No lower extremity edema. INTAKE AND OUTPUT: 460/1500 LABORATORY DATA: WBC 6, hemoglobin 10.2, hematocrit 31, platelets 108. Sodium 134, potassium 3.1, chloride 98, CO2 of 29, BUN 26, creatinine 2.2, glucose 7.7, AST 28, ALT 22, albumin 2.8. Spinal fluid culture, no growth. CURRENT MEDICATIONS: Acyclovir 500 mg daily and 500 mg after dialysis, Apresoline 50 mg b.i.d., clonidine 0.1 mg p.r.n., Catapres 0.3 mg patch, Cozaar 100 mg, Ecotrin 81 mg, Keppra, Lopressor 50 mg b.i.d., amlodipine 5 mg, PhosLo 667 mg b.i.d., prednisone 20 mg b.i.d., Protonix 40 mg, Xanax, potassium 40 mEq p.o. given x1 dose, Lasix 40 mg IV push given this morning. ASSESSMENT AND PLAN 1. 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 2. Acute kidney injury in the setting of recurrent Daphnie's granulomatosis vasculitis, remains on dialysis. 3. Severe hypokalemia. 4. Severe anemia. 5. Severe hypoalbuminemia. 6. Severe uncontrolled hypertension. 7. Nonoliguric. PLAN 1. Dialysis tomorrow. 2. Clinically somewhat improved, much more awake and alert, continue acyclovir. 3. Agree with replacement of potassium. 4. Continue current antihypertensives. 5. No objection to transfer to the telemetry floor. 6. Discussed with Dr. Russell, discussed with at bedside, discussed with dialysis staff. 7. More than 35 minutes spent in the care of this critically ill patient. 8. PS discussed with the . In light of no real response and the patient remains with nephrotic range proteinuria and remains dialysis dependent, we will start to taper off steroids. Monserrat French MD
--- NOTE | 2019-01-02 21:37 | PN ---
DATE: 01/02/2019 The patient is a female, diabetic patient. REASON FOR THE CONSULTATION AND FOLLOWUP: Elevated troponin, end-stage renal disease on dialysis started, altered mental status. SUBJECTIVE: The patient denies any chest pain, shortness of breath, any palpitation, two-point Napoleon restraint. is at the bedside. PHYSICAL EXAMINATION VITAL SIGNS: Temperature afebrile, heart rate 111, blood pressure 157/74. HEENT: PERRLA. Extraocular muscles intact. NECK: Supple. No carotid bruits or thyromegaly. CHEST: Clear to auscultation. HEART: S1, S2. Regular. ABDOMEN: Soft. EXTREMITIES: Clubbing and cyanosis, negative. LABORATORY DATA: Blood workup; WBC 6.0, hemoglobin 10.0, hematocrit 31.4, and platelet count 108. Chemistry shows sodium 134, potassium 3.0, chloride 98, carbon dioxide 29, anion gap of 10, BUN 26, and creatinine 2.2. 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 Had an electroencephalogram done. The patient still tachycardic and hypertensive, started on dialysis. Echo shows preserved left ventricular function, moderate mitral regurgitation, mild tricuspid regurgitation. RECOMMENDATIONS: We will increase metoprolol to 50 mg b.i.d. We will continue losartan. Monitor renal function. I will increase to 75 mg p.o. from today. Actually, the patient's blood pressure is not controlled, heart rate is also elevated. We will increase metoprolol to 75 mg p.o. b.i.d., discontinue amlodipine, and we will start Cardizem 40 mg three times a day. The patient is also mild troponin positive most likely the bump in troponin is secondary to renal insufficiency when she had the hemodynamic instability after the current CAD. The patient mentally is altered, and not a candidate to go to the senior laboratory technician. We will put 60 mg three times a day with holding parameters and we will also increase metoprolol to 75 mg p.o. b.i.d. We will follow with you. Thank you Dr. Webb, for providing us opportunity in taking care of the patient, Beatriz Badillo. Mohini Calvert MD
[2019-01-03] MEDS: Nitroglycerin 2% Ointment Foilpak UD TOP SCH ×5 (01:11→23:36)
[2019-01-03 08:06] LABS: HEMOGLOBIN 9.5 g/dL (12.0-16.0); LYMPH # 0.5 (1.2-3.4); LYMPH % 9.6 % (22.0-35.0); MEAN CELL VOLUME 95.1 fl (80.0-105.0); MEAN CORPUSCULAR HEMOGLOBIN 30.8 pg (25.0-35.0); MEAN CORPUSCULAR HGB CONC 32.4 g/dl (31.0-37.0); MEAN PLATELET VOLUME 10.9 fl (7.0-11.0); MONO # 0.2 (0.1-0.6); MONO % 4.5 % (1.0-6.0); RBC 3.08 10^6/uL (3.5-6.1); RED CELL DISTRIBUTION WIDTH 18.6 % (11.5-14.5); WHITE BLOOD COUNT 4.7 10^3/uL (4.5-11.0)
[2019-01-03 08:21] LABS: ALB/GLOB RATIO 1.2 (1.1-1.8); ALBUMIN 2.8 g/dL (3.0-4.8); CALCIUM 7.9 mg/dL (8.4-10.5)
[2019-01-03] MEDS: Pantoprazole 40 mg EC Tab PO SCH (08:45)
[2019-01-03] MEDS: levETIRAcetam 1000mg/100ml NS 100 ML IVPB SCH (09:35)
[2019-01-03] MEDS: Acyclovir 500 MG in Sodium Chloride 0.9% 100 ML IV SCH ×2 (10:41→10:42)
--- NOTE | 2019-01-03 13:05 | PN ---
DATE: 01/03/2019 SUBJECTIVE: The patient is currently seen on 2R. She is scheduled for dialysis later today. Her family is in the room. She continues to remain with an altered mental status. She is not communicating with me. She remains on antiviral therapy for possible herpes encephalitis. She is status post a spinal tap. No further seizure activity. MEDICATIONS: Medication list reviewed. The patient is on acyclovir, hydralazine, Cardizem, clonidine, losartan, Ecotrin, subcu heparin, Keppra, Lopressor, PhosLo, prednisone, Protonix and Versed p.r.n. OBJECTIVE: INTAKE/OUTPUT: Intake is 120, output is 200. VITAL SIGNS: Blood pressure 158/90, temperature 98.7, respiratory rate 18 with a pulse of 90. Oxygen saturation is 96%. HEENT: Exam shows her to be normocephalic, atraumatic. Conjunctivae are pale. Sclerae nonicteric. NECK: Supple. No neck vein distention. CHEST: Decreased breath sounds at the left base. Right chest wall PermCath. CARDIOVASCULAR: Regular rate and rhythm without audible murmurs, rubs or gallops. ABDOMEN: Soft. Bowel sounds normal. No rebound, guarding or masses. EXTREMITIES: No lower extremity cyanosis, clubbing or edema. NEUROLOGIC: The patient is not speaking. She does not recognize her family member. LABORATORY DATA: CBC; white blood cell count today 4.7, hemoglobin 9.5 with a platelet count of 135,000. Chemistries show normal electrolytes. BUN 55 with a creatinine of 3.3. Glucose is 112 with a calcium of 7.9. Albumin is 2.8. A 24-hour urine shows a protein of 4.928 g. Creatinine clearance is low at 11 mL per minute. Spinal tap CSF antigen not detected. 54 red blood cells. No white blood cells. Microbiology; urine was positive for gram-positive cocci, less than 10,000. CSF Gram stain is negative at 3 days. Blood cultures are negative at 4 days. ASSESSMENT: 1. 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 The patient had been receiving therapy for treatment of this. Hoping to stabilize her renal disease, I am allowing her to come off dialysis. The patient had been treated with plasmapheresis and monoclonal antibodies, steroids. She presently remains on dialysis three times a week. 2. Altered mental status with possible herpes encephalitis status post seizure activity, on medication. No further seizure activity. All cultures are negative. Discussed with Infectious Disease. The patient will continue receiving acyclovir. 3. Hypertension. Blood pressure control is improving with dialysis and blood pressure medication. 4. History of anemia secondary to chronic kidney disease, end-stage renal disease and encephalitis. 5. Past history of breast cancer, status post lumpectomy. 6. History of secondary hyperparathyroidism. Last phosphorus level was acceptable at 4.2. The patient will continue her renal diet and she remains on binder therapy. PLAN: 1. Discussed with the patient's family. She will continue receiving dialysis. 2. Continue a full course of IV acyclovir for possible herpes encephalitis under the guidance of Infectious Disease. 3. Discussed with dialysis staff. The patient will remain on a Saturday, , Saturday dialysis schedule for the foreseeable future. 4. Continue present blood pressure medication. 5. Continue neuro followup. 6. Agree with tapering steroid dose. Ovidio Randall MD
--- NOTE | 2019-01-03 17:18 | PN ---
DATE: 01/03/2019 SUBJECTIVE: The patient seen early this morning, she is awake and alert. She is doing well. She is responsive. No headaches and no fevers at this time. OBJECTIVE: VITAL SIGNS: Temperature is 98, blood pressure is 155/70, respiratory rate 18. HEENT: Unremarkable. NECK: Supple. LUNGS: Have decreased breath sounds. HEART: Normal S1 and S2. ABDOMEN: Soft, nontender. LABORATORY DATA: Reveals a white count of 4.7, hemoglobin of 9, platelets of 135. Chemistries reveals a BUN of 55, creatinine of 3.3.. Urinalysis is noted, CSF is noted. HSV PCR from the CSF is pending. Microbiology is negative. ASSESSMENT AND PLAN: The patient is a 68-year-old with a history of Daphnie's vasculitis, end-stage renal disease on hemodialysis Tuesdays, and Saturdays, breast cancer and hypertension who presented with tachycardia, found to have sepsis and healthcare-associated pneumonia and altered mental status. She is currently on acyclovir to rule out herpes encephalitis, currently, on IV; in fact, we are waiting for HSV PCR in spinal fluid.. We will follow with you. Review of orders confirms the patient's acyclovir to be active, a dose after each dialysis. We will follow with you. Ramana Haywood MD
[2019-01-03 21:56] LABS: SPECIMEN SOURCE CSF
[2019-01-03 23:23] LABS: SOURCE: CSF
[2019-01-04] MEDS: Nitroglycerin 2% Ointment Foilpak UD TOP SCH ×3 (05:47→17:16)
[2019-01-04 07:40] LABS: HEMOGLOBIN 9.6 g/dL (12.0-16.0); LYMPH # 0.4 (1.2-3.4); LYMPH % 9.2 % (22.0-35.0); MEAN CELL VOLUME 97.4 fl (80.0-105.0); MEAN CORPUSCULAR HEMOGLOBIN 31.4 pg (25.0-35.0); MEAN CORPUSCULAR HGB CONC 32.2 g/dl (31.0-37.0); MEAN PLATELET VOLUME 11.1 fl (7.0-11.0); MONO # 0.1 (0.1-0.6); MONO % 2.6 % (1.0-6.0); RBC 3.06 10^6/uL (3.5-6.1); RED CELL DISTRIBUTION WIDTH 18.9 % (11.5-14.5); WHITE BLOOD COUNT 4.2 10^3/uL (4.5-11.0)
[2019-01-04 08:24] LABS: ALB/GLOB RATIO 1.1 (1.1-1.8); ALBUMIN 2.6 g/dL (3.0-4.8); CALCIUM 7.3 mg/dL (8.4-10.5)
[2019-01-04] MEDS: Pantoprazole 40 mg EC Tab PO SCH (09:17)
[2019-01-04] MEDS: levETIRAcetam 1000mg/100ml NS 100 ML IVPB SCH (09:18)
[2019-01-04] MEDS: Acyclovir 500 MG in Sodium Chloride 0.9% 100 ML IV SCH (11:20)
--- NOTE | 2019-01-04 11:44 | PN ---
DATE: 01/04/2019 SUBJECTIVE: The patient is currently seen on 2R together with her partner. The patient is definitely more responsive today. She is answering appropriately in one to two word answers. She is squeezing my hand. She appears to be aware of her surroundings in her room. This is a significant improvement over the last 24-48 hours. 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 She is no longer receiving antibiotic therapy for a possible pneumonia. No further seizure activity. MEDICATIONS: Medication list reviewed. The patient is on acyclovir, hydralazine, Cardizem, clonidine p.r.n., losartan, Ecotrin, heparin, Keppra, Lopressor, Nitro-Bid ointment, PhosLo, prednisone, Protonix, and Versed p.r.n. OBJECTIVE: INTAKE/OUTPUT: Intake 1340, output 302 mL of urine with 1500 mL of ultrafiltration with dialysis. VITAL SIGNS: Blood pressure 160/87, pulse of 101, temperature is 97.5, respiratory rate is 20 with oxygen saturation of 97%. HEENT: Exam shows her to be normocephalic, atraumatic. Conjunctivae remain pale. Sclerae are nonicteric. NECK: Supple. No neck vein distention. CHEST: Slight decreased breath sounds at the bases. She has a right chest wall PermCath. No rales, rhonchi or wheezing. CARDIOVASCULAR: Shows a regular rate and rhythm without audible murmurs, rubs or gallops. ABDOMEN: Soft. Bowel sounds normal. No rebound, guarding or masses. EXTREMITIES: Show no lower extremity cyanosis, clubbing or edema. NEUROLOGIC: Shows her to be speaking one to two word appropriately when asked questions. She does recognize her partner and does recognize her surroundings in her room. LABORATORY DATA: Microbiology, all cultures are negative. CSF Gram stain is negative. Her HSV PCR from the spinal fluid is pending. ASSESSMENT: 1. Acute renal failure with the patient requiring dialysis. She has a history of crescentic glomerulonephritis, Daphnie's, microscopic polyangiitis. She had received plasmapheresis, rituximab, Cytoxan and steroids. She progressed to requiring dialysis. There is still some hope that there is some acute reversibility to this disease otherwise the patient will remain on dialysis. 2. 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 She is status post seizure activity on medication with no further seizure activity. All cultures are negative. Again, the patient will continue receiving acyclovir. 3. Hypertension. Blood pressure is controlled on present medication, occasional blood pressure spikes, she receives clonidine on a p.r.n. basis. 4. Possible multifocal pneumonia based on her admitting CT scan. She did receive a short course of antibiotics and this was discontinued by Infectious Disease. 5. History of anemia secondary to chronic kidney disease, quite possibly end-stage renal disease and encephalitis. Continue to maintain hemoglobin in the 9-10 range. 6. History of breast cancer, status post lumpectomy. 7. History of secondary hyperparathyroidism. Her last phosphorus level was 4.2. She continues on binder therapy and continues a renal diet. PLAN: 1. Discussed with patient's boyfriend. The patient appears to be making very slow but she is making steady progress. She is doing more today than she did in the last several days. 2. Continue IV acyclovir under the guidance of Dr. Haywood. 3. Will continue Saturday, dialysis for the foreseeable future. 4. Continue close neuro followup. 5. Agree with tapering dose of steroids. 6. Continue present blood pressure medication with p.r.n. parameters for clonidine. 7. Continue to monitor the patient on telemetry. Ovidio Randall MD
--- NOTE | 2019-01-04 12:37 | PN ---
DATE: 01/04/2019 SUBJECTIVE: The patient seen this morning. She is awake. She is alert. She is responsive. She is communicating. No fevers. She is tolerating her antivirals. PHYSICAL EXAMINATION: VITAL SIGNS: Temperature 97, blood pressure 160/80, respiratory rate 20, heart rate 89. HEENT: Examination of HEENT is unremarkable. NECK: Supple. LUNGS: Decreased breath sounds. HEART: Normal S1, S2. ABDOMEN: Soft, nontender. LABORATORY DATA: Blood laboratory examination reveals a white count of 4.2, hemoglobin is 9, creatinine is 2.2. Urinalysis is noted and serology is noted. 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 Most herpes encephalitis is caused by herpes simplex virus type 1. Nevertheless, would continue with acyclovir as dosed once daily and after each dialysis. Today is day #7 of the 21 days of acyclovir. Ramana Haywood MD
[2019-01-05] MEDS: Nitroglycerin 2% Ointment Foilpak UD TOP SCH ×4 (00:17→18:10)
[2019-01-05 06:58] LABS: HEMOGLOBIN 9.8 g/dL (12.0-16.0); LYMPH # 0.5 (1.2-3.4); MEAN CELL VOLUME 96.5 fl (80.0-105.0); MEAN CORPUSCULAR HEMOGLOBIN 31.3 pg (25.0-35.0); MEAN CORPUSCULAR HGB CONC 32.5 g/dl (31.0-37.0); MEAN PLATELET VOLUME 10.9 fl (7.0-11.0); MONO # 0.2 (0.1-0.6); MONO % 4.8 % (1.0-6.0); RBC 3.13 10^6/uL (3.5-6.1); RED CELL DISTRIBUTION WIDTH 18.8 % (11.5-14.5); WHITE BLOOD COUNT 4.4 10^3/uL (4.5-11.0)
[2019-01-05 07:17] LABS: ALB/GLOB RATIO 1.1 (1.1-1.8); ALBUMIN 2.9 g/dL (3.0-4.8); CALCIUM 8.3 mg/dL (8.4-10.5)
[2019-01-05] MEDS: Pantoprazole 40 mg EC Tab PO SCH (09:50)
[2019-01-05] MEDS: levETIRAcetam 1000mg/100ml NS 100 ML IVPB SCH (09:52)
[2019-01-05] MEDS: Acyclovir 500 MG in Sodium Chloride 0.9% 100 ML IV SCH (10:28)
--- NOTE | 2019-01-05 12:11 | CP.PCM.PCO ---
Physician Communication Note - Physician Communication Note Physician Communication Note: PT rec acute rehab , [facility] as second option
--- NOTE | 2019-01-05 12:16 | CP.PCM.PCO ---
Physician Communication Note - Physician Communication Note Physician Communication Note: pt. receives HD tues,Thurs,Sat, will need Acute rehab/ Zack rec by PT
--- NOTE | 2019-01-05 13:45 | CP.PCM.PN ---
<Tl Gaxiola - Last Filed: 01/05/19 13:39> Subjective - Date & Time of Evaluation Date of Evaluation: 01/05/19 Time of Evaluation: 09:45 - Subjective Subjective: Tl Gaxiola D.O. PGY-3, Internal Medicine Resident, Infectious Disease Progress Note 68 year old female with a PMH of Daphnie's vasculitis, ESRD on HD T/T/S, breast CA and HTN who presented for tachycardia, found to have sepsis and HAP and hospital course complicated by altered mental status concerning for herpes encephalitis. Patient was seen and examined at bedside. Boyfriend at bedside on exam. States that she's been relatively unchanged. Sleeps most of the day. Somewhat less confused. Objective - Vital Signs/Intake and Output Vital Signs (last 24 hours): Temp Pulse Resp BP Pulse Ox 98.0 F 75 19 135/74 97 01/05/19 12:00 01/05/19 13:19 01/05/19 12:00 01/05/19 13:19 01/05/19 06:00 Intake and Output: 01/05/19 01/05/19 06:59 18:59 Intake Total 480 Output Total 200 Balance 280 - Medications Medications: Current Medications Aspirin (Ecotrin) 81 mg PO DAILY [facility] Last Admin: 01/05/19 09:50 Dose: 81 mg Calcium Acetate (Phoslo) 667 mg PO BID [facility] Last Admin: 01/05/19 09:51 Dose: 667 mg Clonidine HCl (Catapres-Tts3 0.3 Mg/24 Hr) 1 patch TD Q7D@1000 [facility] Last Admin: 12/30/18 12:07 Dose: 1 patch Clonidine HCl (Catapres) 0.1 mg PO Q4H PRN PRN Reason: hypertension Last Admin: 01/03/19 05:21 Dose: 0.1 mg Diltiazem HCl (Cardizem) 60 mg PO TID [facility] Last Admin: 01/05/19 13:19 Dose: 60 mg Heparin Sodium (Porcine) (Heparin) 5,000 units SC Q12 [facility]; Protocol Last Admin: 01/05/19 09:51 Dose: 5,000 units Hydralazine HCl (Apresoline) 50 mg PO BID [facility] Last Admin: 01/05/19 09:51 Dose: 50 mg Acyclovir 500 mg/ Sodium (Chloride) 100 mls @ 100 mls/hr IV TTS [facility]; Protocol Last Admin: 01/03/19 10:42 Dose: Not Given Acyclovir 500 mg/ Sodium (Chloride) 100 mls @ 100 mls/hr IV Q24H [facility]; Protocol Last Admin: 01/05/19 10:28 Dose: 100 mls/hr Levetiracetam (Keppra 1000mg/100ml Ns) 100 mls @ 240 mls/hr IVPB DAILY [facility] Last Admin: 01/05/19 09:52 Dose: 240 mls/hr Isosorbide Mononitrate (Imdur Er) 30 mg PO DAILY [facility] Losartan Potassium (Cozaar) 100 mg PO DAILY [facility] Last Admin: 01/05/19 09:50 Dose: 100 mg Metoprolol Tartrate (Lopressor) 75 mg PO BID [facility] Last Admin: 01/05/19 09:51 Dose: 75 mg Midazolam HCl (Versed Inj) 2 mg IVP Q4 PRN PRN Reason: Agitation Nitroglycerin (Nitro-Bid 2% Oint) 1 ea TOP Q6H [facility] Stop: 01/05/19 23:59 Last Admin: 01/05/19 12:46 Dose: 1 ea Pantoprazole Sodium (Protonix Ec Tab) 40 mg PO ACB [facility] Last Admin: 01/05/19 09:50 Dose: 40 mg Prednisone (Prednisone Tab) 10 mg PO QPM [facility] Prednisone (Prednisone Tab) 20 mg PO QAM [facility] - Labs Labs: 01/05/19 06:10 01/05/19 06:10 - Constitutional Appears: Non-toxic, No Acute Distress, resting comfortably - Head Exam Head Exam: ATRAUMATIC, NORMOCEPHALIC - Eye Exam Eye Exam: EOMI. absent: Scleral icterus - ENT Exam ENT Exam: Mucous Membranes Moist, Normal Oropharynx - Neck Exam Neck Exam: Normal Inspection. absent: Meningismus - Respiratory Exam Respiratory Exam: absent: Rhonchi, Wheezes - Cardiovascular Exam Cardiovascular Exam: +S1, +S2. absent: Gallop, Rubs - GI/Abdominal Exam GI & Abdominal Exam: Soft. absent: Tenderness - Extremities Exam Extremities Exam: absent: Calf Tenderness - Neurological Exam Additional comments: awake, alert, confused, oriented to self, place, follows simple commands, SUGAR - Skin Skin Exam: Dry, Warm Assessment and Plan - Assessment and Plan (Free Text) Assessment: 68 year old female with a PMH of Daphnie's vasculitis, ESRD on HD T/T/S, breast CA and HTN who presented for tachycardia, found to have sepsis and HAP and hospital course complicated by altered mental status concerning for herpes type 2 encephalitis. 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) Currently on day 8 of 21 of acyclovir Receiving acyclovir right after dialysis as well to maintain levels Has been afebrile No leukocytosis BCxs negative / day 5 CSF cx negative Slowly improving clinically We will follow with you Patient was seen and examined and case will be discussed with attending physician Thank you for the pleasure participating in the care of this interesting patient <Ramana Haywood - Last Filed: 01/05/19 15:19> Objective - Vital Signs/Intake and Output Vital Signs (last 24 hours): Temp Pulse Resp BP Pulse Ox 98.0 F 75 19 135/74 97 01/05/19 12:00 01/05/19 13:19 01/05/19 12:00 01/05/19 13:19 01/05/19 06:00 Intake and Output: 01/05/19 01/05/19 06:59 18:59 Intake Total 480 Output Total 200 Balance 280 - Medications Medications: Current Medications Aspirin (Ecotrin) 81 mg PO DAILY [facility] Last Admin: 01/05/19 09:50 Dose: 81 mg Calcium Acetate (Phoslo) 667 mg PO BID [facility] Last Admin: 01/05/19 09:51 Dose: 667 mg Clonidine HCl (Catapres-Tts3 0.3 Mg/24 Hr) 1 patch TD Q7D@1000 [facility] Last Admin: 12/30/18 12:07 Dose: 1 patch Clonidine HCl (Catapres) 0.1 mg PO Q4H PRN PRN Reason: hypertension Last Admin: 01/03/19 05:21 Dose: 0.1 mg Diltiazem HCl (Cardizem) 60 mg PO TID [facility] Last Admin: 01/05/19 13:19 Dose: 60 mg Heparin Sodium (Porcine) (Heparin) 5,000 units SC Q12 [facility]; Protocol Last Admin: 01/05/19 09:51 Dose: 5,000 units Hydralazine HCl (Apresoline) 50 mg PO BID [facility] Last Admin: 01/05/19 09:51 Dose: 50 mg Acyclovir 500 mg/ Sodium (Chloride) 100 mls @ 100 mls/hr IV TTS [facility]; Protocol Last Admin: 01/03/19 10:42 Dose: Not Given Acyclovir 500 mg/ Sodium (Chloride) 100 mls @ 100 mls/hr IV Q24H [facility]; Protocol Last Admin: 01/05/19 10:28 Dose: 100 mls/hr Levetiracetam (Keppra 1000mg/100ml Ns) 100 mls @ 240 mls/hr IVPB DAILY [facility] Last Admin: 01/05/19 09:52 Dose: 240 mls/hr Isosorbide Mononitrate (Imdur Er) 30 mg PO DAILY [facility] Losartan Potassium (Cozaar) 100 mg PO DAILY [facility] Last Admin: 01/05/19 09:50 Dose: 100 mg Metoprolol Tartrate (Lopressor) 75 mg PO BID [facility] Last Admin: 01/05/19 09:51 Dose: 75 mg Midazolam HCl (Versed Inj) 2 mg IVP Q4 PRN PRN Reason: Agitation Nitroglycerin (Nitro-Bid 2% Oint) 1 ea TOP Q6H [facility] Stop: 01/05/19 23:59 Last Admin: 01/05/19 12:46 Dose: 1 ea Pantoprazole Sodium (Protonix Ec Tab) 40 mg PO ACB [facility] Last Admin: 01/05/19 09:50 Dose: 40 mg Prednisone (Prednisone Tab) 10 mg PO QPM [facility] Prednisone (Prednisone Tab) 20 mg PO QAM [facility] - Labs Labs: 01/05/19 06:10 01/05/19 06:10 Attending/Attestation - Attestation I have personally seen and examined this patient.: Yes I have fully participated in the care of the patient.: Yes I have reviewed all pertinent clinical information, including history, physical exam and plan: Yes
--- NOTE | 2019-01-05 13:57 | CP.PCM.PN ---
<Eliel Cheek - Last Filed: 01/05/19 13:58> Subjective - Date & Time of Evaluation Date of Evaluation: 01/05/19 Time of Evaluation: 06:00 - Subjective Subjective: Patient seen and examined bedside. Patients mental status munch improved, able to answer questions appropriately. Denies any complaints. Confusion appears to be decreasing markedly. Objective - Vital Signs/Intake and Output Vital Signs (last 24 hours): Temp Pulse Resp BP Pulse Ox 98.0 F 75 19 135/74 97 01/05/19 12:00 01/05/19 13:19 01/05/19 12:00 01/05/19 13:19 01/05/19 06:00 Intake and Output: 01/05/19 01/05/19 06:59 18:59 Intake Total 480 Output Total 200 Balance 280 - Medications Medications: Current Medications Aspirin (Ecotrin) 81 mg PO DAILY [facility] Last Admin: 01/05/19 09:50 Dose: 81 mg Calcium Acetate (Phoslo) 667 mg PO BID [facility] Last Admin: 01/05/19 09:51 Dose: 667 mg Clonidine HCl (Catapres-Tts3 0.3 Mg/24 Hr) 1 patch TD Q7D@1000 [facility] Last Admin: 12/30/18 12:07 Dose: 1 patch Clonidine HCl (Catapres) 0.1 mg PO Q4H PRN PRN Reason: hypertension Last Admin: 01/03/19 05:21 Dose: 0.1 mg Diltiazem HCl (Cardizem) 60 mg PO TID [facility] Last Admin: 01/05/19 13:19 Dose: 60 mg Heparin Sodium (Porcine) (Heparin) 5,000 units SC Q12 [facility]; Protocol Last Admin: 01/05/19 09:51 Dose: 5,000 units Hydralazine HCl (Apresoline) 50 mg PO BID [facility] Last Admin: 01/05/19 09:51 Dose: 50 mg Acyclovir 500 mg/ Sodium (Chloride) 100 mls @ 100 mls/hr IV TTS [facility]; Protocol Last Admin: 01/03/19 10:42 Dose: Not Given Acyclovir 500 mg/ Sodium (Chloride) 100 mls @ 100 mls/hr IV Q24H [facility]; Protocol Last Admin: 01/05/19 10:28 Dose: 100 mls/hr Levetiracetam (Keppra 1000mg/100ml Ns) 100 mls @ 240 mls/hr IVPB DAILY [facility] Last Admin: 01/05/19 09:52 Dose: 240 mls/hr Isosorbide Mononitrate (Imdur Er) 30 mg PO DAILY [facility] Losartan Potassium (Cozaar) 100 mg PO DAILY [facility] Last Admin: 01/05/19 09:50 Dose: 100 mg Metoprolol Tartrate (Lopressor) 75 mg PO BID [facility] Last Admin: 01/05/19 09:51 Dose: 75 mg Midazolam HCl (Versed Inj) 2 mg IVP Q4 PRN PRN Reason: Agitation Nitroglycerin (Nitro-Bid 2% Oint) 1 ea TOP Q6H [facility] Stop: 01/05/19 23:59 Last Admin: 01/05/19 12:46 Dose: 1 ea Pantoprazole Sodium (Protonix Ec Tab) 40 mg PO ACB [facility] Last Admin: 01/05/19 09:50 Dose: 40 mg Prednisone (Prednisone Tab) 10 mg PO QPM [facility] Prednisone (Prednisone Tab) 20 mg PO QAM [facility] - Labs Labs: 01/05/19 06:10 01/05/19 06:10 - Constitutional Appears: Non-toxic, No Acute Distress - Head Exam Head Exam: ATRAUMATIC, NORMAL INSPECTION, NORMOCEPHALIC - Eye Exam Eye Exam: EOMI, Normal appearance, PERRL - ENT Exam ENT Exam: Mucous Membranes Moist - Respiratory Exam Respiratory Exam: Clear to Ausculation Bilateral, NORMAL BREATHING PATTERN - Cardiovascular Exam Cardiovascular Exam: +S1, +S2 - GI/Abdominal Exam GI & Abdominal Exam: Soft - Neurological Exam Neurological Exam: Alert, Awake, CN II-XII Intact, Oriented x3 Neuro motor strength exam: Left Upper Extremity: 5, Right Upper Extremity: 5, Left Lower Extremity: 5, Right Lower Extremity: 5 Assessment and Plan - Assessment and Plan (Free Text) Plan: Assessment and Plan (1) Altered mental state Assessment & Plan: -MRI Brain (12/30/18): 1. Suboptimal diagnostic quality due to motion degraded images. Asymmetric signal abnormality in the right inferior perisylvian cortex and right medial temporal lobe. 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 Please correlate with CSF analysis. MRI of the brain with intravenous contrast is recommended for further evaluation. Absence of territorial involvement mitigates against acute infarction and absence of vasogenic edema mitigates against primary neoplasm. 2. Mild chronic microangiopathic changes and mild age-related global parenchymal volume loss. -CT Head (12/30/18): No evidence of acute intracranial hemorrhage mass effect or midline shift. No significant interval change in the brain parenchyma noted since the prior study. Sphenoid and right maxillary mucosal thickening suspicious for sinusitis. -CT Head (12/27/18): Age-appropriate age related neuro degenerative findings are appreciate without definite acute intracranial pattern by standard CT criteria. Follow-up CT or MRI are available if clinically warranted. Incidental sinusitis as discussed above. -CSF no growth -LP specimen results reviewed; elevated protein at 73; wbc normal. 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 -Repeat MRI today Status: Acute (2) Seizure Assessment & Plan: -VEEG (12/30/18): The First 6 hours of this Video EEG show that this is an abnormal awake and sleep video EEG. There are frequent Pled like discharges noted in the left temporal region, as well as right temporal focal slowing. There is also encephalopathy indicated by generalized slowing throughout the background. There were no clinical or subclinical seizures noted. PLEDS or periodic sharp waves can be seen post stroke, post seizure or due to herpes encephalitis. Clinical correlation is required. -MRI Brain (12/30/18): 1. Suboptimal diagnostic quality due to motion degraded images. Asymmetric signal abnormality in the right inferior perisylvian cortex and right medial temporal lobe. 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 Please correlate with CSF analysis. MRI of the brain with intravenous contrast is recommended for further evaluation. Absence of territorial involvement mitigates against acute infarction and absence of vasogenic edema mitigates against primary neoplasm. 2. Mild chronic microangiopathic changes and mild age-related global parenchymal volume loss. -CT Head (12/30/18): No evidence of acute intracranial hemorrhage mass effect or midline shift. No significant interval change in the brain parenchyma noted since the prior study. Sphenoid and right maxillary mucosal thickening suspicious for sinusitis. -CT Head (12/27/18): Age-appropriate age related neuro degenerative findings are appreciate without definite acute intracranial pattern by standard CT criteria. -temporal lobe on MRI appears to have restrictive diffuse pattern consistent with seizure focus, will start seizure prophylaxis and treatment -keppra 1000mg Q24 continue -Continue seizure precautions. -repeat MRI today Status: Acute <Christiano Lee - Last Filed: 01/20/19 17:51> Objective - Vital Signs/Intake and Output Vital Signs (last 24 hours): Temp Pulse Resp BP Pulse Ox 98 F 97 H 18 177/83 H 98 01/20/19 08:22 01/20/19 16:32 01/20/19 08:22 01/20/19 16:32 01/20/19 08:22 Intake and Output: 01/20/19 01/20/19 06:59 18:59 Output Total 500 Balance -500 - Medications Medications: Current Medications Armodafinil (Nuvigil 150 Mg Tab) 150 mg PO DAILY [facility] Last Admin: 01/18/19 11:27 Dose: 150 mg Clonidine HCl (Catapres) 0.1 mg PO Q4H PRN PRN Reason: hypertension Last Admin: 01/14/19 06:01 Dose: 0.1 mg Clonidine HCl (Catapres) 0.1 mg PO DAILY [facility] Last Admin: 01/18/19 11:28 Dose: 0.1 mg Diltiazem HCl (Cardizem) 60 mg PO TID [facility] Last Admin: 01/20/19 16:32 Dose: 60 mg Hydralazine HCl (Apresoline) 50 mg PO BID [facility] Last Admin: 01/19/19 18:09 Dose: 50 mg Acyclovir 500 mg/ Sodium (Chloride) 100 mls @ 100 mls/hr IV TTS [facility]; Protocol Last Admin: 01/20/19 13:57 Dose: 100 mls/hr Acyclovir 500 mg/ Sodium (Chloride) 100 mls @ 100 mls/hr IV Q24H [facility]; Protocol Stop: 02/08/19 06:01 Last Admin: 01/20/19 05:35 Dose: 100 mls/hr Levetiracetam (Keppra) 500 mg PO DAILY [facility] Losartan Potassium (Cozaar) 100 mg PO DAILY [facility] Last Admin: 01/18/19 11:27 Dose: 100 mg Metoprolol Tartrate (Lopressor) 50 mg PO BID [facility] Pantoprazole Sodium (Protonix Ec Tab) 40 mg PO ACB [facility] Last Admin: 01/20/19 08:04 Dose: 40 mg Phenytoin Sodium (Dilantin) 100 mg PO TID [facility] Last Admin: 01/20/19 16:33 Dose: 100 mg Polyethylene Glycol (Miralax) 17 gm PO DAILY PRN PRN Reason: Constipation Last Admin: 01/16/19 09:28 Dose: 17 gm Prednisone (Prednisone Tab) 10 mg PO BID [facility] Last Admin: 01/19/19 18:13 Dose: 10 mg - Labs Labs: 01/20/19 08:30 01/20/19 08:30 PT 10.6 SECONDS (9.4-12.5) 01/15/19 10:20 INR 0.94 01/15/19 10:20 APTT 25.6 Seconds (26.9-38.3) L 01/15/19 10:20 Assessment and Plan - Assessment and Plan (Free Text) Plan: All medical record entries made by the Resident were at my direction and personally dictated by me. I have reviewed the chart and agree that the record accurately reflects my personal performance of the history, physical exam, medical decision making, and the department course for this patient. I have also personally directed, reviewed, and agree with the discharge instructions and disposition. Miss Badillo is a 68 yr old woman who has herpes encephalitis and resulting initial status and now occasional seizures. She is on keppra and acyclovir Dr. lee Neurology
--- NOTE | 2019-01-05 14:49 | PN ---
DATE: 01/05/2019 SUBJECTIVE: The patient is seen lying in bed. She is awake. She is alert. She is confused. She does not recognize me. She did not recognize her . PHYSICAL EXAMINATION: GENERAL: An elderly lady lying in bed. VITAL SIGNS: Blood pressure 161/71, heart rate 88, respiratory rate 21, temperature 98.4. HEENT: Normocephalic, atraumatic. Positive pallor. NECK: Supple. No JVD. LUNGS: Bilateral equal air entry, bilateral equal expansion. CARDIAC: S1 and S2, regular rate and rhythm. No murmur. No rub. ABDOMEN: Soft, nondistended, nontender. Bowel sounds present. EXTREMITIES: No lower extremity edema. INTAKE AND OUTPUT: 1280/200. LABORATORY DATA: WBC 4.4, hemoglobin 9.8, hematocrit 30, platelets 165. Sodium 139, potassium 4.2, chloride 103, CO2 of 28, BUN 67, creatinine 3.7. Glucose 106, calcium 8.3, albumin 2.9, corrected calcium is 9. CURRENT MEDICATIONS: Acyclovir 500 daily and 500 after every dialysis, Apresoline 50 b.i.d., Cardizem 60 t.i.d., Catapres 0.3 patch, Cozaar 100, aspirin 81, Keppra, Lopressor 75 b.i.d., PhosLo 667 t.i.d., prednisone 20 b.i.d., Protonix 40. ASSESSMENT: 1. Altered mental status likely secondary to herpes encephalitis. 2. Severe sepsis. 3. Acute kidney injury superimposed on chronic kidney disease stage III, recurrent pauci-immune glomerulonephritis, suboptimal response to treatment. 4. Anemia of chronic disease. 5. Hypertension. 6. History of breast cancer. PLAN: 1. Continue current antihypertensives. 2. Next dialysis will be tomorrow. 3. Continue acyclovir. 4. We will continue to taper steroids. We will change to prednisone 20 mg in a.m. and 10 mg in p.m. Monserrat French MD
--- NOTE | 2019-01-05 15:23 | PN ---
DATE: 01/05/2019 REASON FOR FOLLOWUP: Elevated troponin, end-stage renal disease on dialysis, altered mental status. SUBJECTIVE: The patient denies any chest pain, shortness of breath, or palpitation. OBJECTIVE: GENERAL: Not in any apparent distress. is at the bedside. VITAL SIGNS: Temperature afebrile, heart rate 88, and blood pressure 160/79. HEENT: PERRLA. Extraocular muscles intact. NECK: Supple. No carotid bruits or thyromegaly. CHEST: Clear to auscultation. HEART: S1, S2 regular. ABDOMEN: Soft. EXTREMITIES: Clubbing and cyanosis, negative. LABORATORY DATA: WBC 4.5, hemoglobin 9.8, hematocrit 30.2, and platelet count 155. Chemistry shows sodium 113, potassium 4.2, chloride 103, carbon dioxide 28, anion gap of 4, BUN 66, creatinine 3.7. 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 The patient started on dialysis. Recent echo showed preserved left ventricular function, moderate mitral regurgitation, and mild tricuspid regurgitation. The patient is still off and on confused, asymptomatic, not a candidate for cardiac catheterization. We will treat medically, asymptomatic. Although, the patient had on admission borderline troponin positive in face of acute kidney injury, probably significance unknown, but the patient is not a candidate to be treated invasive. So, we will continue medical treatment, started aspirin and since the patient is on dialysis, we will put regular dose of Plavix . Continue Cardizem. CVS status is relatively stable. The patient had on echocardiography done on last admission, history of preserved LV function, moderate mitral regurgitation, mild tricuspid regurgitation. Last echo showed ejection fraction of 54%, moderate mitral regurgitation, mild tricuspid regurgitation. Continue aspirin. Continue heparin for DVT prophylaxis. We will change nitroglycerin to Imdur p.o. and medical treatment, no plan for cardiac catheterization or invasive workup because of the patient's mental status, fluctuating level of conscious off and on and asymptomatic. No complaint of chest pain. We will follow with you. Mohini Calvert MD [facility] # [id number]
--- NOTE | 2019-01-05 15:42 | CP.PCM.APN ---
Subjective - Date & Time of Evaluation Date of Evaluation: 01/05/19 Time of Evaluation: 12:30 - Subjective Subjective: Pt. seen and examined, sitting up in chair, appears more alert, in process eating lunch, denied further seizures, denied chest discomfort, signif.other at bedside, oriented to person , place. Objective - Vital Signs/Intake and Output Vital Signs (last 24 hours): Temp Pulse Resp BP Pulse Ox 98.0 F 75 19 135/74 97 01/05/19 12:00 01/05/19 13:19 01/05/19 12:00 01/05/19 13:19 01/05/19 06:00 Intake and Output: 01/05/19 01/05/19 06:59 18:59 Intake Total 480 Output Total 200 Balance 280 - Medications Medications: Current Medications Aspirin (Ecotrin) 81 mg PO DAILY [facility] Last Admin: 01/05/19 09:50 Dose: 81 mg Calcium Acetate (Phoslo) 667 mg PO BID [facility] Last Admin: 01/05/19 09:51 Dose: 667 mg Clonidine HCl (Catapres-Tts3 0.3 Mg/24 Hr) 1 patch TD Q7D@1000 [facility] Last Admin: 12/30/18 12:07 Dose: 1 patch Clonidine HCl (Catapres) 0.1 mg PO Q4H PRN PRN Reason: hypertension Last Admin: 01/03/19 05:21 Dose: 0.1 mg Diltiazem HCl (Cardizem) 60 mg PO TID [facility] Last Admin: 01/05/19 13:19 Dose: 60 mg Heparin Sodium (Porcine) (Heparin) 5,000 units SC Q12 [facility]; Protocol Last Admin: 01/05/19 09:51 Dose: 5,000 units Hydralazine HCl (Apresoline) 50 mg PO BID [facility] Last Admin: 01/05/19 09:51 Dose: 50 mg Acyclovir 500 mg/ Sodium (Chloride) 100 mls @ 100 mls/hr IV TTS [facility]; Protocol Last Admin: 01/03/19 10:42 Dose: Not Given Acyclovir 500 mg/ Sodium (Chloride) 100 mls @ 100 mls/hr IV Q24H [facility]; Protocol Last Admin: 01/05/19 10:28 Dose: 100 mls/hr Levetiracetam (Keppra 1000mg/100ml Ns) 100 mls @ 240 mls/hr IVPB DAILY [facility] Last Admin: 01/05/19 09:52 Dose: 240 mls/hr Isosorbide Mononitrate (Imdur Er) 30 mg PO DAILY [facility] Losartan Potassium (Cozaar) 100 mg PO DAILY [facility] Last Admin: 01/05/19 09:50 Dose: 100 mg Metoprolol Tartrate (Lopressor) 75 mg PO BID [facility] Last Admin: 01/05/19 09:51 Dose: 75 mg Midazolam HCl (Versed Inj) 2 mg IVP Q4 PRN PRN Reason: Agitation Nitroglycerin (Nitro-Bid 2% Oint) 1 ea TOP Q6H [facility] Stop: 01/05/19 23:59 Last Admin: 01/05/19 12:46 Dose: 1 ea Pantoprazole Sodium (Protonix Ec Tab) 40 mg PO ACB [facility] Last Admin: 01/05/19 09:50 Dose: 40 mg Prednisone (Prednisone Tab) 10 mg PO QPM [facility] Prednisone (Prednisone Tab) 20 mg PO QAM [facility] - Labs Labs: 01/05/19 06:10 01/05/19 06:10 - Constitutional Appears: Well - Head Exam Head Exam: NORMOCEPHALIC - Eye Exam Eye Exam: Normal appearance - ENT Exam ENT Exam: Mucous Membranes Moist, Normal Exam - Neck Exam Neck Exam: Full ROM - Respiratory Exam Respiratory Exam: Clear to Ausculation Bilateral - Cardiovascular Exam Cardiovascular Exam: REGULAR RHYTHM, +S1, +S2 - GI/Abdominal Exam GI & Abdominal Exam: Soft - Rectal Exam Rectal Exam: Deferred - Exam Exam: absent: Circumcision, NORMAL INSPECTION, Scrotal Swelling, Testicular Tenderness, Uretheral Discharge, Testicular Vertical Lie, Bladder Distension External exam: absent: Ecchymosis, Erythema, Lacerations, Lesions, NORMAL EXTERNAL EXAM, Swelling Speculum exam: absent: Cervical Discharge, Erythema, Foreign Body, Laceration, NORMAL SPECULUM EXAM, Tissue, Vaginal Bleeding, Vaginal Discharge - Extremities Exam Extremities Exam: Full ROM - Neurological Exam Neurological Exam: Alert - Psychiatric Exam Psychiatric exam: Flat Affect - Skin Skin Exam: Dry, Intact, Normal Color, Warm Assessment and Plan - Assessment and Plan (Free Text) Assessment: ITS Impressions Chest X-Ray 12/27/18 12:53 IMPRESSION: Density at the left base suggest small pleural effusion with underlying atelectasis or infiltrate not excluded. Interval permanent right right dialysis catheter inserted as discussed above. Chest/Abdomen/Pelvis CT 12/29/18 17:45 IMPRESSION: Moderate to large bilateral pleural effusions. The evaluation for possible empyema is limited without IV contrast administration. No evidence of localized pleural effusion. Cardiomegaly. Patchy foci of dense ground-glass opacities and airspace consolidation in both lungs may represent multifocal pneumonia versus less likely pneumonitis or severe pulmonary congestion. No evidence of acute pathology in the abdomen and pelvis. Focal cortical thickening versus cortical lesion noted at the midpole of the left kidney. Further evaluation by ultrasound is suggested. Head CT 12/30/18 12:59 IMPRESSION: No evidence of acute intracranial hemorrhage mass effect or midline shift. No significant interval change in the brain parenchyma noted since the prior study. Sphenoid and right maxillary mucosal thickening suspicious for sinusitis. Brain MRI 12/30/18 14:36 IMPRESSION: 1. Suboptimal diagnostic quality due to motion degraded images. Asymmetric signal abnormality in the right inferior perisylvian cortex and right medial temporal lobe. 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 Please correlate with CSF analysis. MRI of the brain with intravenous contrast is recommended for further evaluation. Absence of territorial involvement mitigates against acute infarction and absence of vasogenic edema mitigates against primary neoplasm. 2. Mild chronic microangiopathic changes and mild age-related global parenchymal volume loss. Assessment: Assessment: \ Pt is a 68 year old female, with past medical history of renal disease, breast cancer, and hypertension, admitted with altered mental status, with lethargy,for further eval and treatment. Plan: 1. 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 Awaits repeat MRI 2. s/p Seizure maybe r/t fever vs. herpetic encephalitis. continue Keppra per Neuro.. 3. Anemia hgb 7.9, s/p 1 unit prbc, hgb 9.6, transfused prbcs as per hemonc, -continue to monitor cbc, stool o.b pending. 4. PNA, left patchy infiltrate, on iv antibiotics per I.D. 5. Elevated troponin likely secondary to marcelino, currently not candidate for cardiac cath due to mental status, per cardiology Medical management per cardiology, monitor for further arrythmias. PT recommended acute rehab, SARBJIT Will continue to monitor clinical status and follow closely will cont to DW with consultants, P[place], SW/MAYITO, .
[2019-01-06 08:59] LABS: HEMOGLOBIN 9.5 g/dL (12.0-16.0); MEAN CELL VOLUME 96.3 fl (80.0-105.0); MEAN CORPUSCULAR HEMOGLOBIN 31.7 pg (25.0-35.0); MEAN CORPUSCULAR HGB CONC 32.9 g/dl (31.0-37.0); MEAN PLATELET VOLUME 10.5 fl (7.0-11.0); RED CELL DISTRIBUTION WIDTH 18.8 % (11.5-14.5); WHITE BLOOD COUNT 3.1 10^3/uL (4.5-11.0)
[2019-01-06 09:21] LABS: ALB/GLOB RATIO 1.2 (1.1-1.8); ALBUMIN 2.9 g/dL (3.0-4.8); CALCIUM 8.5 mg/dL (8.4-10.5)
--- NOTE | 2019-01-06 10:37 | MRI ---
Date of service: 01/05/2019 PROCEDURE: MRI BRAIN WITHOUT CONTRAST HISTORY: encephalitis COMPARISON: 12/30/2018 TECHNIQUE: Multiplanar, multisequence MR images of the brain were obtained without intravenous contrast enhancement. FINDINGS: HEMORRHAGE: None DWI: There is restricted diffusion and abnormal FLAIR signal throughout the right temporal lobe. There is minimal involvement of the left anterior medial temporal lobe. There is also involvement of the right insular cortex as well as the splenium of the corpus callosum on the right. Findings have shown slight progression since the previous study. 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 BRAIN PARENCHYMA: No mass effect or edema. No atrophy or chronic microvascular ischemic changes. VENTRICLES: Unremarkable. No hydrocephalus. CRANIUM: Unremarkable. ORBITS: Grossly unremarkable. PARANASAL SINUSES/MASTOIDS: There is opacification of the sphenoid sinus VASCULAR SYSTEM: Skull base flow voids intact. OTHER FINDINGS: None. IMPRESSION: There is restricted diffusion and abnormal FLAIR signal throughout the right temporal lobe. There is minimal involvement of the left anterior medial temporal lobe. There is also involvement of the right insular cortex as well as the splenium of the corpus callosum on the right. Findings have shown slight progression since the previous study. 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
--- NOTE | 2019-01-06 11:29 | CP.PCM.PN ---
<Eliel Cheek - Last Filed: 01/06/19 15:25> Subjective - Date & Time of Evaluation Date of Evaluation: 01/06/19 Time of Evaluation: 06:00 - Subjective Subjective: Patient seen and evaluated bedside. No acute issues overnight. Patient obtunded today, but localizes. Aware of self but overall mental status getting worse. Objective - Vital Signs/Intake and Output Vital Signs (last 24 hours): Temp Pulse Resp BP Pulse Ox 98.2 F 76 19 156/78 H 97 01/06/19 06:00 01/06/19 06:00 01/06/19 06:00 01/06/19 06:00 01/05/19 06:00 Intake and Output: 01/06/19 01/06/19 06:59 18:59 Intake Total 1020 Output Total 800 Balance 220 - Medications Medications: Current Medications Aspirin (Ecotrin) 81 mg PO DAILY [facility] Last Admin: 01/05/19 09:50 Dose: 81 mg Calcium Acetate (Phoslo) 667 mg PO BID [facility] Last Admin: 01/06/19 10:57 Dose: Not Given Clonidine HCl (Catapres-Tts3 0.3 Mg/24 Hr) 1 patch TD Q7D@1000 [facility] Last Admin: 12/30/18 12:07 Dose: 1 patch Clonidine HCl (Catapres) 0.1 mg PO Q4H PRN PRN Reason: hypertension Last Admin: 01/03/19 05:21 Dose: 0.1 mg Diltiazem HCl (Cardizem) 60 mg PO TID [facility] Last Admin: 01/06/19 10:56 Dose: Not Given Heparin Sodium (Porcine) (Heparin) 5,000 units SC Q12 [facility]; Protocol Last Admin: 01/06/19 10:56 Dose: Not Given Hydralazine HCl (Apresoline) 50 mg PO BID [facility] Last Admin: 01/06/19 10:56 Dose: Not Given Acyclovir 500 mg/ Sodium (Chloride) 100 mls @ 100 mls/hr IV TTS [facility]; Protocol Last Admin: 01/03/19 10:42 Dose: Not Given Acyclovir 500 mg/ Sodium (Chloride) 100 mls @ 100 mls/hr IV Q24H [facility]; Protocol Last Admin: 01/05/19 10:28 Dose: 100 mls/hr Levetiracetam (Keppra 1000mg/100ml Ns) 100 mls @ 240 mls/hr IVPB DAILY [facility] Last Admin: 01/05/19 09:52 Dose: 240 mls/hr Isosorbide Mononitrate (Imdur Er) 30 mg PO DAILY [facility] Losartan Potassium (Cozaar) 100 mg PO DAILY [facility] Last Admin: 01/05/19 09:50 Dose: 100 mg Metoprolol Tartrate (Lopressor) 75 mg PO BID [facility] Last Admin: 01/06/19 10:56 Dose: Not Given Midazolam HCl (Versed Inj) 2 mg IVP Q4 PRN PRN Reason: Agitation Pantoprazole Sodium (Protonix Ec Tab) 40 mg PO ACB [facility] Last Admin: 01/05/19 09:50 Dose: 40 mg Prednisone (Prednisone Tab) 10 mg PO QPM [facility] Last Admin: 01/05/19 17:02 Dose: 10 mg Prednisone (Prednisone Tab) 20 mg PO QAM [facility] - Labs Labs: 01/06/19 08:40 01/06/19 08:40 - Constitutional Appears: Toxic, No Acute Distress - Head Exam Head Exam: ATRAUMATIC, NORMAL INSPECTION, NORMOCEPHALIC - Eye Exam Eye Exam: PERRL - Cardiovascular Exam Cardiovascular Exam: REGULAR RHYTHM - Neurological Exam Neurological Exam: absent: Oriented x3 Additional comments: obtunded, but localizes, aware of self, not oriented to place or time. Assessment and Plan - Assessment and Plan (Free Text) Plan: Assessment and Plan (1) Altered mental state Assessment & Plan: -MRI Brain (12/30/18): 1. Suboptimal diagnostic quality due to motion degraded images. Asymmetric signal abnormality in the right inferior perisylvian cortex and right medial temporal lobe. 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 Please correlate with CSF analysis. MRI of the brain with intravenous contrast is recommended for further evaluation. Absence of territorial involvement mitigates against acute infarction and absence of vasogenic edema mitigates against primary neoplasm. 2. Mild chronic microangiopathic changes and mild age-related global parenchymal volume loss. -CT Head (12/30/18): No evidence of acute intracranial hemorrhage mass effect or midline shift. No significant interval change in the brain parenchyma noted since the prior study. Sphenoid and right maxillary mucosal thickening suspicious for sinusitis. -CT Head (12/27/18): Age-appropriate age related neuro degenerative findings are appreciate without definite acute intracranial pattern by standard CT criteria. Follow-up CT or MRI are available if clinically warranted. Incidental sinusitis as discussed above. -CSF no growth -LP specimen results reviewed; elevated protein at 73; wbc normal. -Continue Acyclovir IV as ordered for HSV encephalitis -Repeat MRI shows evidence of herpes encephalitis which is progressively worse Status: Acute (2) Seizure Assessment & Plan: -VEEG (12/30/18): The First 6 hours of this Video EEG show that this is an abnormal awake and sleep video EEG. There are frequent Pled like discharges noted in the left temporal region, as well as right temporal focal slowing. There is also encephalopathy indicated by generalized slowing throughout the background. There were no clinical or subclinical seizures noted. PLEDS or periodic sharp waves can be seen post stroke, post seizure or due to herpes encephalitis. Clinical correlation is required. -MRI Brain (12/30/18): 1. Suboptimal diagnostic quality due to motion degraded images. Asymmetric signal abnormality in the right inferior perisylvian cortex and right medial temporal lobe. 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 Please correlate with CSF analysis. MRI of the brain with intravenous contrast is recommended for further evaluation. Absence of territorial involvement mitigates against acute infarction and absence of vasogenic edema mitigates against primary neoplasm. 2. Mild chronic microangiopathic changes and mild age-related global parenchymal volume loss. -CT Head (12/30/18): No evidence of acute intracranial hemorrhage mass effect or midline shift. No significant interval change in the brain parenchyma noted since the prior study. Sphenoid and right maxillary mucosal thickening suspicious for sinusitis. -CT Head (12/27/18): Age-appropriate age related neuro degenerative findings are appreciate without definite acute intracranial pattern by standard CT criteria. -temporal lobe on MRI appears to have restrictive diffuse pattern consistent with seizure focus, will start seizure prophylaxis and treatment -keppra 750 BID -Continue seizure precautions -24 hour EEG ordered Status: Acute <Adams,Gautami - Last Filed: 01/06/19 16:37> Objective - Vital Signs/Intake and Output Vital Signs (last 24 hours): Temp Pulse Resp BP Pulse Ox 98.2 F 101 H 19 144/73 97 01/06/19 06:00 01/06/19 15:07 01/06/19 06:00 01/06/19 15:07 01/05/19 06:00 Intake and Output: 01/06/19 01/06/19 06:59 18:59 Intake Total 1020 Output Total 800 Balance 220 - Medications Medications: Current Medications Aspirin (Ecotrin) 81 mg PO DAILY [facility] Last Admin: 01/06/19 12:41 Dose: 81 mg Calcium Acetate (Phoslo) 667 mg PO BID [facility] Last Admin: 01/06/19 10:57 Dose: Not Given Clonidine HCl (Catapres-Tts3 0.3 Mg/24 Hr) 1 patch TD Q7D@1000 [facility] Last Admin: 01/06/19 12:55 Dose: 1 patch Clonidine HCl (Catapres) 0.1 mg PO Q4H PRN PRN Reason: hypertension Last Admin: 01/03/19 05:21 Dose: 0.1 mg Diltiazem HCl (Cardizem) 60 mg PO TID [facility] Last Admin: 01/06/19 15:07 Dose: 60 mg Heparin Sodium (Porcine) (Heparin) 5,000 units SC Q12 [facility]; Protocol Last Admin: 01/06/19 10:56 Dose: Not Given Hydralazine HCl (Apresoline) 50 mg PO BID [facility] Last Admin: 01/06/19 10:56 Dose: Not Given Levetiracetam 750 mg/ Sodium (Chloride) 107.5 mls @ 215 mls/hr IVPB Q12 [facility] Acyclovir 500 mg/ Sodium (Chloride) 100 mls @ 100 mls/hr IV Q24H [facility]; Protocol Acyclovir 500 mg/ Sodium (Chloride) 100 mls @ 100 mls/hr IV TuThSa@1300 [facility]; Protocol Isosorbide Mononitrate (Imdur Er) 30 mg PO DAILY [facility] Last Admin: 01/06/19 12:41 Dose: 30 mg Losartan Potassium (Cozaar) 100 mg PO DAILY [facility] Last Admin: 01/06/19 12:41 Dose: 100 mg Metoprolol Tartrate (Lopressor) 75 mg PO BID [facility] Last Admin: 01/06/19 10:56 Dose: Not Given Midazolam HCl (Versed Inj) 2 mg IVP Q4 PRN PRN Reason: Agitation Pantoprazole Sodium (Protonix Ec Tab) 40 mg PO ACB [facility] Last Admin: 01/06/19 12:47 Dose: 40 mg Prednisone (Prednisone Tab) 10 mg PO QPM [facility] Last Admin: 01/05/19 17:02 Dose: 10 mg Prednisone (Prednisone Tab) 20 mg PO QAM [facility] Last Admin: 01/06/19 12:41 Dose: 20 mg - Labs Labs: 01/06/19 08:40 01/06/19 08:40 Assessment and Plan - Assessment and Plan (Free Text) Plan: All medical record entries made by the Resident were at my direction and personally dictated by me. I have reviewed the chart and agree that the record accurately reflects my personal performance of the history, physical exam, medical decision making, and the department course for this patient. I have also personally directed, reviewed, and agree with the discharge instructions and disposition. Miss eric is a 68 yr old woman who most likely has herpetic encephalitis, now becoming worse per neuroimaging, and clinically. SHe is much more encephalopathic, and is very hard to arouse. It is not clear if she is having subclinical seizures. Plan: 1. Transfer to ICU 2. Video EEG for 24 hours 3. Increase keppra to 750 mg bid 4. Increase acyclovir per ID. Dr. Adams Neurology
[2019-01-06] MEDS: levETIRAcetam 1000mg/100ml NS 100 ML IVPB SCH (12:41)
[2019-01-06] MEDS: Acyclovir 500 MG in Sodium Chloride 0.9% 100 ML IV SCH ×2 (12:43→12:44)
[2019-01-06] MEDS: Pantoprazole 40 mg EC Tab PO SCH (12:47)
--- NOTE | 2019-01-06 13:16 | PN ---
DATE: 01/06/2019 REASON FOR CONSULTATION AND FOLLOWUP: Elevated troponin, end-stage renal disease on dialysis started and altered mental status. SUBJECTIVE: The patient's is at bedside. Denies any chest pain, shortness of breath or any palpitation. OBJECTIVE: GENERAL: Not in apparent distress. VITAL SIGNS: Temperature afebrile. Heart rate 70 and blood pressure 160/78. HEENT: PERRLA. Extraocular muscles intact. NECK: Supple. No carotid bruit. No thyromegaly. CHEST: Clear to auscultation. HEART: S1 and S2, regular. ABDOMEN: Soft. EXTREMITIES: Clubbing and cyanosis negative. LABORATORY DATA: Blood workup as follows, WBC 3.4, hemoglobin , hematocrit 28.9 and platelet count 171. Chemistry shows sodium 130, potassium 4.2, chloride 104, carbon dioxide 25, anion gap of 13, BUN 19 and creatinine 4.7. 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 The patient started on dialysis. The patient has still waxing and waning mental status. The patient had echocardiography done that shows preserved left ventricular function, moderate mitral regurgitation, and mild tricuspid regurgitation. The patient as mentioned is still off and confused, though the patient has non-ST segment myocardial infarction possibly secondary to acute kidney injury underlying coronary artery disease. The patient is asymptomatic and because of the mental status is not a candidate for invasive cardiac workup. Suggest aggressive medical treatment including aspirin, nitrates, subcutaneous heparin and metoprolol. Medical treatment. We will follow with you. Thank you Dr. Webb, for providing us opportunity in taking care of the patient, Beatriz Badillo. Mohini Calvert MD
[2019-01-06] MEDS ORDERED: Acyclovir 500 MG in Sodium Chloride 0.9% 100 ML IV SCH (15:34)
--- NOTE | 2019-01-06 16:05 | CP.PCM.PCO ---
Physician Communication Note - Physician Communication Note Physician Communication Note: patient more lethargic today, unable to stay awake, BP elev.clonidine rx
--- NOTE | 2019-01-06 16:11 | CP.PCM.PN ---
<Tl Gaxiola - Last Filed: 01/06/19 16:09> Subjective - Date & Time of Evaluation Date of Evaluation: 01/06/19 Time of Evaluation: 09:05 - Subjective Subjective: Tl Gaxiola D.O. PGY-3, Internal Medicine Resident, Infectious Disease Progress Note 68 year old female with a PMH of Daphnie's vasculitis, ESRD on HD T/T/S, breast CA and HTN who presented for tachycardia, found to have sepsis and HAP and hospital course complicated by altered mental status concerning for herpes encephalitis. Patient was seen and examined at bedside. Continues to be lethargic but arousable. No new complaints. Objective - Vital Signs/Intake and Output Vital Signs (last 24 hours): Temp Pulse Resp BP Pulse Ox 98.2 F 101 H 19 144/73 97 01/06/19 06:00 01/06/19 15:07 01/06/19 06:00 01/06/19 15:07 01/05/19 06:00 Intake and Output: 01/06/19 01/06/19 06:59 18:59 Intake Total 1020 Output Total 800 Balance 220 - Medications Medications: Current Medications Aspirin (Ecotrin) 81 mg PO DAILY [facility] Last Admin: 01/06/19 12:41 Dose: 81 mg Calcium Acetate (Phoslo) 667 mg PO BID [facility] Last Admin: 01/06/19 10:57 Dose: Not Given Clonidine HCl (Catapres-Tts3 0.3 Mg/24 Hr) 1 patch TD Q7D@1000 [facility] Last Admin: 01/06/19 12:55 Dose: 1 patch Clonidine HCl (Catapres) 0.1 mg PO Q4H PRN PRN Reason: hypertension Last Admin: 01/03/19 05:21 Dose: 0.1 mg Diltiazem HCl (Cardizem) 60 mg PO TID [facility] Last Admin: 01/06/19 15:07 Dose: 60 mg Heparin Sodium (Porcine) (Heparin) 5,000 units SC Q12 [facility]; Protocol Last Admin: 01/06/19 10:56 Dose: Not Given Hydralazine HCl (Apresoline) 50 mg PO BID [facility] Last Admin: 01/06/19 10:56 Dose: Not Given Levetiracetam 750 mg/ Sodium (Chloride) 107.5 mls @ 215 mls/hr IVPB Q12 [facility] Acyclovir 500 mg/ Sodium (Chloride) 100 mls @ 100 mls/hr IV Q24H [facility]; Protocol Acyclovir 500 mg/ Sodium (Chloride) 100 mls @ 100 mls/hr IV TuThSa@1300 [facility]; Protocol Isosorbide Mononitrate (Imdur Er) 30 mg PO DAILY [facility] Last Admin: 01/06/19 12:41 Dose: 30 mg Losartan Potassium (Cozaar) 100 mg PO DAILY [facility] Last Admin: 01/06/19 12:41 Dose: 100 mg Metoprolol Tartrate (Lopressor) 75 mg PO BID [facility] Last Admin: 01/06/19 10:56 Dose: Not Given Midazolam HCl (Versed Inj) 2 mg IVP Q4 PRN PRN Reason: Agitation Pantoprazole Sodium (Protonix Ec Tab) 40 mg PO ACB [facility] Last Admin: 01/06/19 12:47 Dose: 40 mg Prednisone (Prednisone Tab) 10 mg PO QPM [facility] Last Admin: 01/05/19 17:02 Dose: 10 mg Prednisone (Prednisone Tab) 20 mg PO QAM [facility] Last Admin: 01/06/19 12:41 Dose: 20 mg - Labs Labs: 01/06/19 08:40 01/06/19 08:40 - Constitutional Appears: Non-toxic, No Acute Distress, resting comfortably - Head Exam Head Exam: ATRAUMATIC, NORMOCEPHALIC - Eye Exam Eye Exam: EOMI. absent: Scleral icterus - ENT Exam ENT Exam: Mucous Membranes Moist, Normal Oropharynx - Neck Exam Neck Exam: Normal Inspection. absent: Meningismus - Respiratory Exam Respiratory Exam: absent: Rhonchi, Wheezes - Cardiovascular Exam Cardiovascular Exam: +S1, +S2. absent: Gallop, Rubs - GI/Abdominal Exam GI & Abdominal Exam: Soft. absent: Tenderness - Extremities Exam Extremities Exam: absent: Calf Tenderness - Neurological Exam Additional comments: awake, alert, confused, oriented to self, place, follows simple commands, SUGAR - Skin Skin Exam: Dry, Warm Assessment and Plan - Assessment and Plan (Free Text) Assessment: 68 year old female with a PMH of Daphnie's vasculitis, ESRD on HD T/T/S, breast CA and HTN who presented for tachycardia, found to have sepsis and HAP and hospital course complicated by altered mental status concerning for herpes type 2 encephalitis. 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) Currently on day 9 of 21 of acyclovir Receiving acyclovir right after dialysis as well to maintain levels Afebrile No leukocytosis Slowly improving clinically, discussed with boyfriend that unfortunately she may not recover 100% cognitively We will follow with you Patient was seen and examined and case will be discussed with attending physician Thank you for the pleasure participating in the care of this interesting patient <Ramana Haywood - Last Filed: 01/06/19 16:59> Objective - Vital Signs/Intake and Output Vital Signs (last 24 hours): Temp Pulse Resp BP Pulse Ox 98.2 F 101 H 19 144/73 97 01/06/19 06:00 01/06/19 15:07 01/06/19 06:00 01/06/19 15:07 01/05/19 06:00 Intake and Output: 01/06/19 01/06/19 06:59 18:59 Intake Total 1020 Output Total 800 Balance 220 - Medications Medications: Current Medications Aspirin (Ecotrin) 81 mg PO DAILY [facility] Last Admin: 01/06/19 12:41 Dose: 81 mg Calcium Acetate (Phoslo) 667 mg PO BID [facility] Last Admin: 01/06/19 10:57 Dose: Not Given Clonidine HCl (Catapres-Tts3 0.3 Mg/24 Hr) 1 patch TD Q7D@1000 [facility] Last Admin: 01/06/19 12:55 Dose: 1 patch Clonidine HCl (Catapres) 0.1 mg PO Q4H PRN PRN Reason: hypertension Last Admin: 01/03/19 05:21 Dose: 0.1 mg Diltiazem HCl (Cardizem) 60 mg PO TID [facility] Last Admin: 01/06/19 15:07 Dose: 60 mg Heparin Sodium (Porcine) (Heparin) 5,000 units SC Q12 [facility]; Protocol Last Admin: 01/06/19 10:56 Dose: Not Given Hydralazine HCl (Apresoline) 50 mg PO BID [facility] Last Admin: 01/06/19 10:56 Dose: Not Given Levetiracetam 750 mg/ Sodium (Chloride) 107.5 mls @ 215 mls/hr IVPB Q12 [facility] Acyclovir 500 mg/ Sodium (Chloride) 100 mls @ 100 mls/hr IV Q24H [facility]; Protocol Acyclovir 500 mg/ Sodium (Chloride) 100 mls @ 100 mls/hr IV TuThSa@1300 [facility]; Protocol Isosorbide Mononitrate (Imdur Er) 30 mg PO DAILY [facility] Last Admin: 01/06/19 12:41 Dose: 30 mg Losartan Potassium (Cozaar) 100 mg PO DAILY [facility] Last Admin: 01/06/19 12:41 Dose: 100 mg Metoprolol Tartrate (Lopressor) 75 mg PO BID [facility] Last Admin: 01/06/19 10:56 Dose: Not Given Midazolam HCl (Versed Inj) 2 mg IVP Q4 PRN PRN Reason: Agitation Pantoprazole Sodium (Protonix Ec Tab) 40 mg PO ACB [facility] Last Admin: 01/06/19 12:47 Dose: 40 mg Prednisone (Prednisone Tab) 10 mg PO QPM [facility] Last Admin: 01/05/19 17:02 Dose: 10 mg Prednisone (Prednisone Tab) 20 mg PO QAM [facility] Last Admin: 01/06/19 12:41 Dose: 20 mg - Labs Labs: 01/06/19 08:40 01/06/19 08:40 Attending/Attestation - Attestation I have personally seen and examined this patient.: Yes I have fully participated in the care of the patient.: Yes I have reviewed all pertinent clinical information, including history, physical exam and plan: Yes
--- NOTE | 2019-01-06 16:42 | CP.PCM.PN ---
Subjective - Date & Time of Evaluation Date of Evaluation: 01/06/19 Time of Evaluation: 16:15 - Subjective Subjective: MICU Attending Follow-up 68F with PMH of Daphnie's vasculitis, ESRD on HD T/T/S, breast CA and HTN dx with herpes encephilits recently transferred out of ICU who we are asked to see again for poor mentation. Earlier today patient was reported to be unresponsive which is a change from previous days. Apparently as per nursing and her fiance at bedside, she was recently changed and moved which resulted in her perking up. She is now much more awake. She is able to tell me her name, her fiance's name, her and identify that she in [facility]. Vitals notable for no fevers, elevated bp and tachycardia at 101 Labs work hem and chem stable over past few days Objective - Vital Signs/Intake and Output Vital Signs (last 24 hours): Temp Pulse Resp BP Pulse Ox 98.2 F 101 H 19 144/73 97 01/06/19 06:00 01/06/19 15:07 01/06/19 06:00 01/06/19 15:07 01/05/19 06:00 Intake and Output: 01/06/19 01/06/19 06:59 18:59 Intake Total 1020 Output Total 800 Balance 220 - Medications Medications: Current Medications Aspirin (Ecotrin) 81 mg PO DAILY [facility] Last Admin: 01/06/19 12:41 Dose: 81 mg Calcium Acetate (Phoslo) 667 mg PO BID [facility] Last Admin: 01/06/19 10:57 Dose: Not Given Clonidine HCl (Catapres-Tts3 0.3 Mg/24 Hr) 1 patch TD Q7D@1000 [facility] Last Admin: 01/06/19 12:55 Dose: 1 patch Clonidine HCl (Catapres) 0.1 mg PO Q4H PRN PRN Reason: hypertension Last Admin: 01/03/19 05:21 Dose: 0.1 mg Diltiazem HCl (Cardizem) 60 mg PO TID [facility] Last Admin: 01/06/19 15:07 Dose: 60 mg Heparin Sodium (Porcine) (Heparin) 5,000 units SC Q12 [facility]; Protocol Last Admin: 01/06/19 10:56 Dose: Not Given Hydralazine HCl (Apresoline) 50 mg PO BID [facility] Last Admin: 01/06/19 10:56 Dose: Not Given Levetiracetam 750 mg/ Sodium (Chloride) 107.5 mls @ 215 mls/hr IVPB Q12 [facility] Acyclovir 500 mg/ Sodium (Chloride) 100 mls @ 100 mls/hr IV Q24H [facility]; Protocol Acyclovir 500 mg/ Sodium (Chloride) 100 mls @ 100 mls/hr IV TuThSa@1300 [facility]; Protocol Isosorbide Mononitrate (Imdur Er) 30 mg PO DAILY [facility] Last Admin: 01/06/19 12:41 Dose: 30 mg Losartan Potassium (Cozaar) 100 mg PO DAILY [facility] Last Admin: 01/06/19 12:41 Dose: 100 mg Metoprolol Tartrate (Lopressor) 75 mg PO BID [facility] Last Admin: 01/06/19 10:56 Dose: Not Given Midazolam HCl (Versed Inj) 2 mg IVP Q4 PRN PRN Reason: Agitation Pantoprazole Sodium (Protonix Ec Tab) 40 mg PO ACB [facility] Last Admin: 01/06/19 12:47 Dose: 40 mg Prednisone (Prednisone Tab) 10 mg PO QPM [facility] Last Admin: 01/05/19 17:02 Dose: 10 mg Prednisone (Prednisone Tab) 20 mg PO QAM [facility] Last Admin: 01/06/19 12:41 Dose: 20 mg - Labs Labs: 01/06/19 08:40 01/06/19 08:40 Assessment and Plan - Assessment and Plan (Free Text) Assessment: Overall this is a 68F who is being tx for herpes encephalitis with acyclovir. Earlier there was a concern that she was more lethargic and concern she was possible in status with airway compromise as a risk. She is however much more alert and awake after being moved around. She is not febrile, no change in lab work. Her exam is consistent with days prior. She appears to be back to her acu te baseline since becoming ill. No indication for ICU at this time Would check ABG Increase physical therapy as tolerated and get patient OOB to chair if possible today rest of care as per primary team Please re-call ICU if any changes or concerns Cedric Sullivan MD MICU Attending
--- NOTE | 2019-01-06 21:52 | PN ---
DATE: 01/06/2019 SUBJECTIVE: The patient had a dialysis treatment today with removal of 1.5 L of fluid. Apparently after she returned from dialysis, the patient had an episode of unresponsiveness and more lethargy today. She was difficult to arouse. Several hours later, the patient is now speaking to me in sentences, but she does appear to be tired. Her boyfriend states that she has had 180-degree turnaround from where she was 2 hours ago. The patient remains on antiviral therapy for a possible herpes encephalitis. She had completed a course of antibiotic therapy for her pneumonia. MEDICATIONS: Medication list reviewed. The patient is on acyclovir, hydralazine, Cardizem, clonidine p.r.n., Catapres patch, losartan, Ecotrin, heparin, Imdur, levetiracetam, Lopressor, PhosLo, prednisone in tapering doses, Protonix, and Versed. OBJECTIVE: INTAKE AND OUTPUT: Intake 1020 and output 800. VITAL SIGNS: Blood pressure 144/73, pulse of 101, temperature 98.2, and respiratory rate of 19. HEENT: Shows her to be normocephalic and atraumatic. Conjunctivae are pale. Sclerae nonicteric. NECK: Supple. No neck vein distention. CHEST: Slight decreased breath sounds at the bases. She has a right chest wall PermCath. No rales, rhonchi or wheezing. CARDIOVASCULAR: Shows a regular rate and rhythm without audible murmurs, rubs or gallops. ABDOMEN: Soft. Bowel sounds normal. No rebound, guarding, or masses. EXTREMITIES: Show no lower extremity cyanosis, clubbing or edema. LABORATORY DATA AND IMAGING STUDIES: CBC; white blood cell count today low 3.1, hemoglobin is 9.5 with a platelet count of 171,000. Chemistries today showed normal electrolytes. BUN 92 with a creatinine of 4.7. Glucose is 153 with a calcium of 8.5. Herpes simplex virus type 2 PCR is detected. ASSESSMENT: 1. Acute renal failure in a patient requiring dialysis. 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 She had received plasmapheresis, rituximab, Cytoxan and steroids. She had a short-lived response to these medications and is now currently on dialysis. All immunosuppressives are being reduced because of the life-threatening infectious complications. The patient will likely remain on dialysis for the rest of her life or until she stabilizes to get a kidney transplant. 2. Status post altered mental status, perhaps secondary to encephalitis. Herpes simplex virus II DNA PCR is positive. The patient will complete a full course of acyclovir. This is being dosed for her renal failure. 3. Hypertension. Blood pressure control is acceptable. The patient will continue present medical therapy. 4. History of multifocal pneumonia. The patient has completed a course of antibiotic therapy. This has been discontinued by Infectious Disease. 5. History of anemia secondary to chronic kidney disease/end-stage renal disease. The patient will receive Aranesp to maintain a hemoglobin in the 9-10 range. Her last hemoglobin was 9.5. 6. History of breast cancer, status post lumpectomy. 7. Secondary hyperparathyroidism. Phosphorus levels are now normal. The patient continues on binder therapy and a renal diet. PLAN: 1. Appears that the patient in the last hour has rallied. She is speaking sentences with me and making sense. She is able to squeeze my hand. She appropriately knows who is in the room. I believe she could remain on telemetry without being transferred down to the ICU at least at this point in time. 2. Continue IV acyclovir for full 21 days under the guidance of Infectious Disease. 3. We will continue Saturday, , and Saturday dialysis. 4. Continue close Neuro followup. 5. Agree with tapering steroids, this was done by Dr. French yesterday. 6. Continue present blood pressure medication. 7. Continue to monitor the patient on telemetry with close observation near the nursing station. 8. Monitor for any seizure activity. The patient will continue IV Keppra. Ovidio Randall MD [facility]
--- NOTE | 2019-01-06 22:41 | PN ---
DATE: 01/06/2019 DAILY PROGRESS NOTE SUBJECTIVE: The patient was seen this Saturday mid in room 262, bed 2 with her , Guerrero at the bedside. She is quite groggy, lethargic, and somnolent at this time. She is arousable to loud voice and abrupt touch and shaking. She will not open her eyes, remains obtunded. PHYSICAL EXAMINATION: LUNGS: Show good aeration right and left. HEART: Regular. ABDOMEN: Soft and nontender. EXTREMITIES: Show no edema. IMPRESSION AND PLAN: Viral encephalitis. PLAN: Case discussed with Infectious Disease consultants. I am still very much concerned about her altered mental status at times. Continue IV acyclovir for now. Later in the day, I was called that consulting neurologist saw the patient and was concerned for her lethargy and asked for her to be be evaluated for transferred to ICU. We will continue IV meds. Follow up on MRI. EEG ordered by Neurology. We will follow. Simon Webb MD [place]
[2019-01-07] MEDS: Acyclovir 500 MG in Sodium Chloride 0.9% 100 ML IV SCH (06:16)
--- NOTE | 2019-01-07 09:36 | CP.PCM.PN ---
<Eliel Cheek - Last Filed: 01/07/19 16:47> Subjective - Date & Time of Evaluation Date of Evaluation: 01/07/19 Time of Evaluation: 06:00 - Subjective Subjective: Patient seen and examined bedside. Patient is arousable on being called, alert, oriented to self and place but not time. Improvement in confusion from yesterday. Video EEG in progress. Denies any complaints. Objective - Vital Signs/Intake and Output Vital Signs (last 24 hours): Temp Pulse Resp BP Pulse Ox 97.9 F 76 19 165/81 H 96 01/07/19 06:00 01/07/19 06:00 01/07/19 06:00 01/07/19 06:00 01/07/19 06:00 Intake and Output: 01/07/19 01/07/19 06:59 18:59 Intake Total 120 Balance 120 - Medications Medications: Current Medications Aspirin (Ecotrin) 81 mg PO DAILY [facility] Last Admin: 01/06/19 12:41 Dose: 81 mg Calcium Acetate (Phoslo) 667 mg PO BID [facility] Last Admin: 01/06/19 18:33 Dose: 667 mg Clonidine HCl (Catapres-Tts3 0.3 Mg/24 Hr) 1 patch TD Q7D@1000 [facility] Last Admin: 01/06/19 12:55 Dose: 1 patch Clonidine HCl (Catapres) 0.1 mg PO Q4H PRN PRN Reason: hypertension Last Admin: 01/03/19 05:21 Dose: 0.1 mg Diltiazem HCl (Cardizem) 60 mg PO TID [facility] Last Admin: 01/06/19 18:33 Dose: 60 mg Heparin Sodium (Porcine) (Heparin) 5,000 units SC Q12 [facility]; Protocol Last Admin: 01/06/19 21:37 Dose: 5,000 units Hydralazine HCl (Apresoline) 50 mg PO BID [facility] Last Admin: 01/06/19 18:33 Dose: 50 mg Levetiracetam 750 mg/ Sodium (Chloride) 107.5 mls @ 215 mls/hr IVPB Q12 [facility] Last Admin: 01/06/19 21:37 Dose: 215 mls/hr Acyclovir 500 mg/ Sodium (Chloride) 100 mls @ 100 mls/hr IV Q24H [facility]; Protocol Last Admin: 01/07/19 06:16 Dose: 100 mls/hr Acyclovir 500 mg/ Sodium (Chloride) 100 mls @ 100 mls/hr IV TuThSa@1300 [facility]; Protocol Isosorbide Mononitrate (Imdur Er) 30 mg PO DAILY [facility] Last Admin: 01/06/19 12:41 Dose: 30 mg Losartan Potassium (Cozaar) 100 mg PO DAILY [facility] Last Admin: 01/06/19 12:41 Dose: 100 mg Metoprolol Tartrate (Lopressor) 75 mg PO BID [facility] Last Admin: 01/06/19 18:33 Dose: 75 mg Midazolam HCl (Versed Inj) 2 mg IVP Q4 PRN PRN Reason: Agitation Pantoprazole Sodium (Protonix Ec Tab) 40 mg PO ACB [facility] Last Admin: 01/06/19 12:47 Dose: 40 mg Prednisone (Prednisone Tab) 10 mg PO QPM [facility] Last Admin: 01/06/19 18:34 Dose: 10 mg Prednisone (Prednisone Tab) 20 mg PO QAM [facility] Last Admin: 01/06/19 12:41 Dose: 20 mg - Labs Labs: 01/06/19 08:40 01/06/19 08:40 - Constitutional Appears: No Acute Distress - Head Exam Head Exam: ATRAUMATIC, NORMAL INSPECTION, NORMOCEPHALIC - Eye Exam Eye Exam: EOMI, Normal appearance - ENT Exam ENT Exam: Mucous Membranes Moist - Respiratory Exam Respiratory Exam: Clear to Ausculation Bilateral, NORMAL BREATHING PATTERN - Cardiovascular Exam Cardiovascular Exam: REGULAR RHYTHM - GI/Abdominal Exam GI & Abdominal Exam: Soft - Neurological Exam Neurological Exam: Alert, Awake. absent: Oriented x3 Assessment and Plan - Assessment and Plan (Free Text) Plan: Assessment and Plan (1) Altered mental state Assessment & Plan: -MRI Brain (12/30/18): 1. Suboptimal diagnostic quality due to motion degraded images. Asymmetric signal abnormality in the right inferior perisylvian cortex and right medial temporal lobe. 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 Please correlate with CSF analysis. MRI of the brain with intravenous contrast is recommended for further evaluation. Absence of territorial involvement mitigates against acute infarction and absence of vasogenic edema mitigates against primary neoplasm. 2. Mild chronic microangiopathic changes and mild age-related global parenchymal volume loss. -CT Head (12/30/18): No evidence of acute intracranial hemorrhage mass effect or midline shift. No significant interval change in the brain parenchyma noted since the prior study. Sphenoid and right maxillary mucosal thickening suspicious for sinusitis. -CT Head (12/27/18): Age-appropriate age related neuro degenerative findings are appreciate without definite acute intracranial pattern by standard CT criteria. Follow-up CT or MRI are available if clinically warranted. Incidental sinusitis as discussed above. -CSF no growth -LP specimen results reviewed; elevated protein at 73; wbc normal. 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 There are frequent Pled like discharges noted in the left temporal region, as well as right temporal focal slowing. There is also encephalopathy indicated by generalized slowing throughout the background. There were no clinical or subclinical seizures noted. PLEDS or periodic sharp waves can be seen post stroke, post seizure or due to herpes encephalitis. Clinical correlation is required. -MRI Brain (12/30/18): 1. Suboptimal diagnostic quality due to motion degraded images. Asymmetric signal abnormality in the right inferior perisylvian cortex and right medial temporal lobe. 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 Please correlate with CSF analysis. MRI of the brain with intravenous contrast is recommended for further evaluation. Absence of territorial involvement mitigates against acute infarction and absence of vasogenic edema mitigates against primary neoplasm. 2. Mild chronic microangiopathic changes and mild age-related global parenchymal volume loss. -CT Head (12/30/18): No evidence of acute intracranial hemorrhage mass effect or midline shift. No significant interval change in the brain parenchyma noted since the prior study. Sphenoid and right maxillary mucosal thickening suspicious for sinusitis. -CT Head (12/27/18): Age-appropriate age related neuro degenerative findings are appreciate without definite acute intracranial pattern by standard CT criteria. 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 In this particular case, since patient seems to have an acute encephalitis, the interictal discharges predispose her to have clinical seizures. Findings are also in keeping with a focal cortical abnormality involving the left temporal region. Lastly the findings are in keeping with a mild non specific diffuse disturbance of cortical activity, in keeping with a diffuse montoya matter dysfunction. Status: Acute <Christiano Lee - Last Filed: 01/20/19 10:26> Objective - Vital Signs/Intake and Output Vital Signs (last 24 hours): Temp Pulse Resp BP Pulse Ox 98 F 81 18 184/91 H 98 01/20/19 08:22 01/20/19 08:22 01/20/19 08:22 01/20/19 08:22 01/20/19 08:22 Intake and Output: 01/20/19 01/20/19 06:59 18:59 Output Total 500 Balance -500 - Medications Medications: Current Medications Armodafinil (Nuvigil 150 Mg Tab) 150 mg PO DAILY [facility] Last Admin: 01/18/19 11:27 Dose: 150 mg Clonidine HCl (Catapres) 0.1 mg PO Q4H PRN PRN Reason: hypertension Last Admin: 01/14/19 06:01 Dose: 0.1 mg Clonidine HCl (Catapres) 0.1 mg PO DAILY [facility] Last Admin: 01/18/19 11:28 Dose: 0.1 mg Diltiazem HCl (Cardizem) 60 mg PO TID [facility] Last Admin: 01/19/19 18:09 Dose: 60 mg Hydralazine HCl (Apresoline) 50 mg PO BID [facility] Last Admin: 01/08/19 18:35 Dose: Not Given Hydralazine HCl (Apresoline) 50 mg PO BID [facility] Last Admin: 01/19/19 18:09 Dose: 50 mg Acyclovir 500 mg/ Sodium (Chloride) 100 mls @ 100 mls/hr IV TTS [facility]; Protocol Last Admin: 01/17/19 13:15 Dose: 100 mls/hr Acyclovir 500 mg/ Sodium (Chloride) 100 mls @ 100 mls/hr IV Q24H [facility]; Protocol Stop: 02/08/19 06:01 Last Admin: 01/20/19 05:35 Dose: 100 mls/hr Levetiracetam (Keppra 500mg Ivpb) 500 mg in 100 mls @ 215 mls/hr IVPB DAILY@1400 [facility] Last Admin: 01/19/19 15:22 Dose: 215 mls/hr Isosorbide Mononitrate (Imdur Er) 30 mg PO DAILY [facility] Last Admin: 01/18/19 11:27 Dose: 30 mg Losartan Potassium (Cozaar) 100 mg PO DAILY [facility] Last Admin: 01/18/19 11:27 Dose: 100 mg Metoprolol Tartrate (Lopressor) 75 mg PO BID [facility] Last Admin: 01/19/19 18:12 Dose: 75 mg Pantoprazole Sodium (Protonix Ec Tab) 40 mg PO ACB [facility] Last Admin: 01/20/19 08:04 Dose: 40 mg Phenytoin Sodium (Dilantin) 100 mg PO TID [facility] Last Admin: 01/19/19 18:11 Dose: 100 mg Polyethylene Glycol (Miralax) 17 gm PO DAILY PRN PRN Reason: Constipation Last Admin: 01/16/19 09:28 Dose: 17 gm Prednisone (Prednisone Tab) 10 mg PO BID [facility] Last Admin: 01/19/19 18:13 Dose: 10 mg - Labs Labs: 01/20/19 08:30 01/20/19 08:30 PT 10.6 SECONDS (9.4-12.5) 01/15/19 10:20 INR 0.94 01/15/19 10:20 APTT 25.6 Seconds (26.9-38.3) L 01/15/19 10:20 Assessment and Plan - Assessment and Plan (Free Text) Plan: All medical record entries made by the Resident were at my direction and personally dictated by me. I have reviewed the chart and agree that the record accurately reflects my personal performance of the history, physical exam, medical decision making, and the department course for this patient. I have also personally directed, reviewed, and agree with the discharge instructions and disposition. 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 We will keep her on this dose of keppra to control her seizures but will taper it as seizures brandon. DR. lee Neurology
[2019-01-07] MEDS: Pantoprazole 40 mg EC Tab PO SCH (09:45)
--- NOTE | 2019-01-07 10:46 | PCM.VEEG ---
Video EEG - Procedure Start Date: 01/06/19 Start Time: 17:40 End Date: 01/07/19 End Time: 07:35 Technical Summary: DATA ACQUISITION: This was a multichannel inpatient video-EEG, a minimum of 22 channels were uti lized, performed in accordance with recommendations specified by the [place] [employer] (Meaghan Andrade et al. ACNS Guideline 1: Minimum Technical Requirements for Performing Clinical Electroencephalography. Journal of Clinical Neurophysiology 2016;33:303-7). The 10-20 electrode placement system was utilized in accordance with guidelines detailed by the International Federation of Clinical Neurophysiology (Tiesha Severino et al. The Ten-Twenty Electrode System of the International Federation. Recommendations for the Practice of Clinical Neurophysiology: Guidelines of the International Federation of Clinical Physiology 1999; EEG Suppl. 52.). DATA REVIEW / SPIKE DETECTION / DIGITAL ANALYSIS: The entire EEG was scanned and reviewed. Synchronized audio and video recording were reviewed at the time of each alarm and whenever an abnormality or suspicious activity was noted. The entire recording was analyzed utilizing an automated digital spike and seizure analysis program and all automatic spike and seizure detections were manually reviewed. A compressed spectral array was displayed and reviewed alongside the raw EEG tracings. In addition, further analysis of the EEG was performed when abnormalities were identified, including montage changes, dipole source localization, and frequency band identification. This study was attended 24 hours per day. - Interpretation Description of the study: Indication; encephalitis EEG Finding during wakefulness: During active states, the EEG was characterized by 10-15 Hz, 15-30 uV activity bilaterally in fronto-central regions, Resting wakefulness was characterized by an attenuated and asymmetric posterior dominant rhythm of 6.5 to 7.5 Hz, 30-50 uV, mostly evident on the right, which was reactive to eye opening and closing. Drowsiness was associated with slow roving eye movements, slowing and fragmentation of the posterior dominant rhythm, and bilateral 4-7 Hz, 40-70 uV theta activity, sometimes with a shifting predominance. Hyperventilation and photic stimulation were not performed. EEG Finding during sleep: Light sleep was recorded and was characterized by fronto-central slowing at 5-7 H, 50-125 uV, sharp central vertex waves, bilateral sleep spindles, and K- complexes; shifting asymmetries were evident, but typical sleep architecture was more evident on the left. Deeper stages of sleep were recorded and were characterized an increasing frequency of 1-4 Hz, 50-100 uV delta activity. Interictal non-epileptiform abnormalities: : There was continuous left temporal slowing at 4 to 5 Hz seen. Interictal epileptiform abnormalities: Frequent spikes and sharps seen in the right temporal area, max at T4, occurring in isolation. They were occasional sharp waves seen on the left anterior temporal region F7. Ictal epileptiform abnormalities: No seizures - Impression Impression: This is an abnormal video-EEG monitoring study due to the presence of 1- Mild background slowing. . 2- Interictal epileptiform discharges seen in both temporal regions right (mid temporal ) more than left (anterior temporal). 3- Mild background slowing 4- Left temporal intermittent slowing No seizures seen, not in status epilepticus. 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 In this particular case, since patient seems to have an acute encephalitis, the interictal discharges predispose her to have clinical seizures. Findings are also in keeping with a focal cortical abnormality involving the left temporal region. Lastly the findings are in keeping with a mild non specific diffuse disturbance of cortical activity, in keeping with a diffuse montoya matter dysfunction.
--- NOTE | 2019-01-07 11:08 | PN ---
DATE: 01/07/2019 REASON FOR CONSULTATION AND FOLLOWUP: Elevated troponin, end-stage renal disease on dialysis. Started dialysis. Admitted with altered mental status. SUBJECTIVE: The patient's is at the bedside. The patient is still in altered mental status, confused, lethargic, and drowsy. Having EEG. OBJECTIVE: GENERAL: Lying on the bed, not in distress. VITAL SIGNS: Temperature 97.9, heart rate 76, blood pressure 165/81. HEENT: PERRLA. Extraocular muscles intact. NECK: Supple. No carotid bruit or thyromegaly. CHEST: Clear to auscultation. HEART: S1 and S2 regular. ABDOMEN: Soft. EXTREMITIES: Clubbing and cyanosis, negative. LABORATORY DATA: Blood workup as follows; WBC 3.1, , hemoglobin 9.5, hematocrit 28.9, platelet count 171. Chemistry showed sodium 130, potassium 4, chloride 104, carbon dioxide 25, anion gap of 13, BUN 19, creatinine 4.7. 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 The patient is still fluctuating level of conscious and altered mentation. Waxing and weaning mental status. Echocardiograph was done, that shows preserved left ventricular function, moderate mitral regurgitation, and mild tricuspid regurgitation. On admission, the patient had borderline troponin, positive in face of acute renal insufficiency, probably significance unknown. The patient is symptomatic and also is not a candidate for invasive cardiac workup. RECOMMENDATION: Close followup with Neurology. The patient is having repeat EEG. Intake from Cardiology point of view, continue hydralazine 50 b.i.d., continue Cardizem p.o. three times a day, continue clonidine three times a day. Catapres was placed by Dr. Randall. Continue deep venous thrombosis prophylaxis. Continue metoprolol 75 p.o. b.i.d. If blood pressure remains elevated and not stable, then we can increase hydralazine to 50 mg three times a day. Continue isosorbide nitrate. Continue beta yuki. From cardiac point of view, no plan for invasive cardiac workup, not a candidate for invasive cardiac workup. Mohini Calvert MD [facility] # [id number]
[2019-01-07] MEDS ORDERED: levETIRAcetam 1000mg/100ml NS 100 ML IV ONE ×2 (11:30→15:00)
[2019-01-07] MEDS ORDERED: levETIRAcetam 1,000 MG in Sodium Chloride 0.9% 100 ML IVPB ONE (14:44)
[2019-01-07] MEDS ORDERED: levETIRAcetam 1,000 MG in Sodium Chloride 0.9% 100 ML IVPB SCH (14:45)
--- NOTE | 2019-01-07 15:55 | CP.PCM.PN ---
<Tl Gaxiola - Last Filed: 01/07/19 15:53> Subjective - Date & Time of Evaluation Date of Evaluation: 01/07/19 Time of Evaluation: 09:40 - Subjective Subjective: Tl Gaxiola D.O. PGY-3, Internal Medicine Resident, Infectious Disease Progress Note 68 year old female with a PMH of Daphnie's vasculitis, ESRD on HD T/T/S, breast CA and HTN who presented for tachycardia, found to have sepsis and HAP and hospital course complicated by altered mental status concerning for herpes encephalitis. Patient was seen and examined at bedside. Shekharfrjada Masters states still somnolent. Arousable, speech much clearer and does appear more awake when aroused. Did remember examiner today. Objective - Vital Signs/Intake and Output Vital Signs (last 24 hours): Temp Pulse Resp BP Pulse Ox 98.6 F 74 19 151/79 H 96 01/07/19 12:00 01/07/19 15:07 01/07/19 12:00 01/07/19 12:00 01/07/19 06:00 Intake and Output: 01/07/19 01/07/19 06:59 18:59 Intake Total 120 Balance 120 - Medications Medications: Current Medications Aspirin (Ecotrin) 81 mg PO DAILY [facility] Last Admin: 01/07/19 09:45 Dose: 81 mg Calcium Acetate (Phoslo) 667 mg PO BID [facility] Last Admin: 01/07/19 09:45 Dose: 667 mg Clonidine HCl (Catapres-Tts3 0.3 Mg/24 Hr) 1 patch TD Q7D@1000 [facility] Last Admin: 01/06/19 12:55 Dose: 1 patch Clonidine HCl (Catapres) 0.1 mg PO Q4H PRN PRN Reason: hypertension Last Admin: 01/03/19 05:21 Dose: 0.1 mg Diltiazem HCl (Cardizem) 60 mg PO TID [facility] Last Admin: 01/07/19 15:07 Dose: 60 mg Heparin Sodium (Porcine) (Heparin) 5,000 units SC Q12 [facility]; Protocol Last Admin: 01/07/19 09:44 Dose: 5,000 units Hydralazine HCl (Apresoline) 50 mg PO BID [facility] Last Admin: 01/07/19 09:51 Dose: 50 mg Acyclovir 500 mg/ Sodium (Chloride) 100 mls @ 100 mls/hr IV Q24H [facility]; Protocol Last Admin: 01/07/19 06:16 Dose: 100 mls/hr Acyclovir 500 mg/ Sodium (Chloride) 100 mls @ 100 mls/hr IV TuThSa@1300 [facility]; Protocol Levetiracetam (Keppra 1000mg/100ml Ns) 100 mls @ 460 mls/hr IV Q12 [facility] Isosorbide Mononitrate (Imdur Er) 30 mg PO DAILY [facility] Last Admin: 01/07/19 09:45 Dose: 30 mg Losartan Potassium (Cozaar) 100 mg PO DAILY [facility] Last Admin: 01/07/19 09:45 Dose: 100 mg Metoprolol Tartrate (Lopressor) 75 mg PO BID [facility] Last Admin: 01/07/19 09:52 Dose: 75 mg Midazolam HCl (Versed Inj) 2 mg IVP Q4 PRN PRN Reason: Agitation Pantoprazole Sodium (Protonix Ec Tab) 40 mg PO ACB [facility] Last Admin: 01/07/19 09:45 Dose: 40 mg Prednisone (Prednisone Tab) 10 mg PO QPM [facility] Last Admin: 01/06/19 18:34 Dose: 10 mg Prednisone (Prednisone Tab) 20 mg PO QAM [facility] Last Admin: 01/07/19 09:45 Dose: 20 mg - Labs Labs: 01/06/19 08:40 01/06/19 08:40 - Constitutional Appears: Non-toxic, No Acute Distress, resting comfortably, undergoing VEEG - Head Exam Head Exam: ATRAUMATIC, NORMOCEPHALIC - Eye Exam Eye Exam: EOMI. absent: Scleral icterus - ENT Exam ENT Exam: Mucous Membranes Moist, Normal Oropharynx - Neck Exam Neck Exam: Normal Inspection. absent: Meningismus - Respiratory Exam Respiratory Exam: absent: Rhonchi, Wheezes - Cardiovascular Exam Cardiovascular Exam: +S1, +S2. absent: Gallop, Rubs - GI/Abdominal Exam GI & Abdominal Exam: Soft. absent: Tenderness - Extremities Exam Extremities Exam: absent: Calf Tenderness - Neurological Exam Additional comments: awake, alert, oriented to self, place, follows simple commands - Skin Skin Exam: Dry, Warm Assessment and Plan - Assessment and Plan (Free Text) Assessment: 68 year old female with a PMH of Daphnie's vasculitis, ESRD on HD T/T/S, breast CA and HTN who presented for tachycardia, found to have sepsis and HAP and hospital course complicated by altered mental status concerning for herpes type 2 encephalitis. 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) Continue acyclovir day 08/10 Afebrile No leukocytosis Neurology follow, recs appreciated and reviewed Slow clinical improvement We will follow with you Patient was seen and examined and case will be discussed with attending physician Thank you for the pleasure participating in the care of this interesting patient <Ramana Haywood - Last Filed: 01/07/19 20:56> Objective - Vital Signs/Intake and Output Vital Signs (last 24 hours): Temp Pulse Resp BP Pulse Ox 98.7 F 80 19 149/85 96 01/07/19 18:00 01/07/19 18:00 01/07/19 18:00 01/07/19 18:00 01/07/19 06:00 Intake and Output: 01/07/19 01/08/19 18:59 06:59 Intake Total 720 Balance 720 - Medications Medications: Current Medications Aspirin (Ecotrin) 81 mg PO DAILY [facility] Last Admin: 01/07/19 09:45 Dose: 81 mg Calcium Acetate (Phoslo) 667 mg PO BID [facility] Last Admin: 01/07/19 17:39 Dose: 667 mg Clonidine HCl (Catapres) 0.1 mg PO Q4H PRN PRN Reason: hypertension Last Admin: 01/03/19 05:21 Dose: 0.1 mg Clonidine HCl (Catapres) 0.2 mg PO TID [facility] Last Admin: 01/07/19 17:38 Dose: 0.2 mg Diltiazem HCl (Cardizem) 60 mg PO TID [facility] Last Admin: 01/07/19 17:37 Dose: 60 mg Heparin Sodium (Porcine) (Heparin) 5,000 units SC Q12 [facility]; Protocol Last Admin: 01/07/19 09:44 Dose: 5,000 units Hydralazine HCl (Apresoline) 50 mg PO BID [facility] Last Admin: 01/07/19 17:39 Dose: 50 mg Acyclovir 500 mg/ Sodium (Chloride) 100 mls @ 100 mls/hr IV Q24H [facility]; Protocol Last Admin: 01/07/19 06:16 Dose: 100 mls/hr Acyclovir 500 mg/ Sodium (Chloride) 100 mls @ 100 mls/hr IV TuThSa@1300 [facility]; Protocol Levetiracetam (Keppra 1000mg/100ml Ns) 100 mls @ 460 mls/hr IV Q12 [facility] Isosorbide Mononitrate (Imdur Er) 30 mg PO DAILY [facility] Last Admin: 01/07/19 09:45 Dose: 30 mg Losartan Potassium (Cozaar) 100 mg PO DAILY [facility] Last Admin: 01/07/19 09:45 Dose: 100 mg Metoprolol Tartrate (Lopressor) 75 mg PO BID [facility] Last Admin: 01/07/19 17:38 Dose: 75 mg Midazolam HCl (Versed Inj) 2 mg IVP Q4 PRN PRN Reason: Agitation Pantoprazole Sodium (Protonix Ec Tab) 40 mg PO ACB [facility] Last Admin: 01/07/19 09:45 Dose: 40 mg Prednisone (Prednisone Tab) 10 mg PO QPM [facility] Last Admin: 01/07/19 17:38 Dose: 10 mg Prednisone (Prednisone Tab) 20 mg PO QAM [facility] Last Admin: 01/07/19 09:45 Dose: 20 mg - Labs Labs: 01/06/19 08:40 01/06/19 08:40 Attending/Attestation - Attestation I have personally seen and examined this patient.: Yes I have fully participated in the care of the patient.: Yes I have reviewed all pertinent clinical information, including history, physical exam and plan: Yes
--- NOTE | 2019-01-07 16:03 | CP.PCM.PCO ---
Physician Communication Note - Physician Communication Note Physician Communication Note: patient appears more lethargic,with cont VEEG in place,Keppra increased.
--- NOTE | 2019-01-07 19:37 | PN ---
DATE: 01/07/2019 SUBJECTIVE: The patient is seen lying in bed. She is awake. She is getting an EEG. She is not oriented. She does not recognize anybody. She does not recognize her . PHYSICAL EXAMINATION GENERAL: An elderly lady lying in bed. VITAL SIGNS: Blood pressure 151/79, heart rate 74, respiratory rate 18, temperature 98.6. HEENT: Normocephalic, atraumatic, positive pallor. NECK: Supple, no JVD. LUNGS: Bilateral equal air entry, bilateral equal expansion, no rales. CARDIAC: S1, S2, regular rate and rhythm, no murmur, no rub. ABDOMEN: Obese, distended, soft, nontender, bowel sounds present. EXTREMITIES: No lower extremity edema. INTAKE AND OUTPUT: Not charted. LABORATORY DATA: Labs from yesterday; WBC 3.1, hemoglobin 9.5, hematocrit 29, platelet count 71. Sodium 138, potassium 4.1, chloride 104, CO2 of 25, BUN 92, creatinine 4.7, glucose 153. Electroencephalogram: Interictal epileptiform discharges in both temporal regions, right more than left. Left intermittent temporal slowing. 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 CURRENT MEDICATIONS: Acyclovir 500 mg daily additional 500 mg after every dialysis, Apresoline 50 mg b.i.d., Cardizem 60 mg p.o. t.i.d., Catapres 0.3 mg patch, Cozaar 100 mg, Ecotrin, heparin, Imdur, Keppra, Lopressor 75 mg b.i.d., PhosLo 667 mg p.o. b.i.d., prednisone 10 mg in p.m. and 20 mg in a.m., Protonix 40 mg. ASSESSMENT 1. 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 2. Immunocompromised patient because of steroids, recent rituximab, cyclophosphamide. 3. Severe hypertension. 4. Recurrent pauci immune glomerulonephritis. 5. Severe anemia. 6. Secondary hyperparathyroidism. PLAN 1. Continue acyclovir as per ID recommendations. 2. Dialysis tomorrow. 3. Taper steroids. 4. Dialysis tomorrow. Blood work on dialysis. 5. Continue antihypertensives, we will discontinue Catapres patch, this may be causing cerebral depression? Monserrat French MD [facility] # [id number]
[2019-01-07] MEDS: levETIRAcetam 1000mg/100ml NS 100 ML IV SCH (22:07)
[2019-01-08] MEDS: Acyclovir 500 MG in Sodium Chloride 0.9% 100 ML IV SCH ×2 (06:11→13:44)
[2019-01-08 09:04] LABS: EOS % 0.4 % (1.5-5.0); HEMOGLOBIN 9.1 g/dL (12.0-16.0); LYMPH # 0.5 (1.2-3.4); LYMPH % 20.4 % (22.0-35.0); MEAN CELL VOLUME 94.7 fl (80.0-105.0); MEAN CORPUSCULAR HEMOGLOBIN 32.2 pg (25.0-35.0); MEAN PLATELET VOLUME 10.7 fl (7.0-11.0); MONO # 0.2 (0.1-0.6); MONO % 6.1 % (1.0-6.0); RBC 2.83 10^6/uL (3.5-6.1); RED CELL DISTRIBUTION WIDTH 18.4 % (11.5-14.5); WHITE BLOOD COUNT 2.5 10^3/uL (4.5-11.0)
[2019-01-08 09:20] LABS: ALB/GLOB RATIO 1.3 (1.1-1.8); ALBUMIN 2.8 g/dL (3.0-4.8); CALCIUM 8.1 mg/dL (8.4-10.5)
--- NOTE | 2019-01-08 11:09 | CP.PCM.PN ---
Subjective - Date & Time of Evaluation Date of Evaluation: 01/08/19 Time of Evaluation: 06:40 - Subjective Subjective: Lying in bed, lethargic Reason for consultation and follow up: Cardiac evaluation of elevated troponin, acute kidney injury,ruled out myocardial ischemia, admitted with altered mental status Seen and examined by me and Dr. Calvert Objective - Vital Signs/Intake and Output Vital Signs (last 24 hours): Temp Pulse Resp BP Pulse Ox 98.2 F 74 18 155/80 H 96 01/08/19 06:00 01/08/19 06:00 01/08/19 06:00 01/08/19 06:00 01/08/19 06:00 Intake and Output: 01/08/19 01/08/19 06:59 18:59 Intake Total 920 Output Total 0 Balance 920 - Medications Medications: Current Medications Aspirin (Ecotrin) 81 mg PO DAILY [facility] Last Admin: 01/07/19 09:45 Dose: 81 mg Calcium Acetate (Phoslo) 667 mg PO BID [facility] Last Admin: 01/07/19 17:39 Dose: 667 mg Clonidine HCl (Catapres) 0.1 mg PO Q4H PRN PRN Reason: hypertension Last Admin: 01/03/19 05:21 Dose: 0.1 mg Clonidine HCl (Catapres) 0.2 mg PO TID [facility] Last Admin: 01/07/19 17:38 Dose: 0.2 mg Diltiazem HCl (Cardizem) 60 mg PO TID [facility] Last Admin: 01/07/19 17:37 Dose: 60 mg Heparin Sodium (Porcine) (Heparin) 5,000 units SC Q12 [facility]; Protocol Last Admin: 01/07/19 22:06 Dose: 5,000 units Hydralazine HCl (Apresoline) 50 mg PO BID [facility] Last Admin: 01/07/19 17:39 Dose: 50 mg Acyclovir 500 mg/ Sodium (Chloride) 100 mls @ 100 mls/hr IV Q24H [facility]; Protocol Last Admin: 01/08/19 06:11 Dose: 100 mls/hr Acyclovir 500 mg/ Sodium (Chloride) 100 mls @ 100 mls/hr IV TuThSa@1300 [facility]; Protocol Levetiracetam (Keppra 1000mg/100ml Ns) 100 mls @ 460 mls/hr IV Q12 [facility] Last Admin: 01/07/19 22:07 Dose: 460 mls/hr Isosorbide Mononitrate (Imdur Er) 30 mg PO DAILY [facility] Last Admin: 01/07/19 09:45 Dose: 30 mg Losartan Potassium (Cozaar) 100 mg PO DAILY [facility] Last Admin: 01/07/19 09:45 Dose: 100 mg Metoprolol Tartrate (Lopressor) 75 mg PO BID [facility] Last Admin: 01/07/19 17:38 Dose: 75 mg Midazolam HCl (Versed Inj) 2 mg IVP Q4 PRN PRN Reason: Agitation Pantoprazole Sodium (Protonix Ec Tab) 40 mg PO ACB [facility] Last Admin: 01/07/19 09:45 Dose: 40 mg Prednisone (Prednisone Tab) 10 mg PO QPM [facility] Last Admin: 01/07/19 17:38 Dose: 10 mg Prednisone (Prednisone Tab) 20 mg PO QAM [facility] Last Admin: 01/07/19 09:45 Dose: 20 mg - Labs Labs: 01/08/19 08:00 01/08/19 08:00 - Constitutional Appears: Non-toxic, No Acute Distress - Head Exam Head Exam: NORMAL INSPECTION, NORMOCEPHALIC - ENT Exam ENT Exam: Mucous Membranes Dry - Respiratory Exam Respiratory Exam: Decreased Breath Sounds, NORMAL BREATHING PATTERN - Cardiovascular Exam Cardiovascular Exam: REGULAR RHYTHM, +S1, +S2 Additional comments: right jugular trialysis catheter - GI/Abdominal Exam GI & Abdominal Exam: Soft, Normal Bowel Sounds - Neurological Exam Additional comments: lethargic - Skin Skin Exam: Dry, Normal Color, Warm Assessment and Plan - Assessment and Plan (Free Text) Assessment: A 68 year old female who was admitted to the ER due to altered mental status and acute renal injury. 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 Positive troponin on admission secondary to renal insufficiency/injury. Echo done on 11/08/18 showed LVEF 56%, moderate MR, mild TR. Very lethargic. Neuro on consult. Renal on consult. on EEG monitor. Plan: Very lethargic, no distress Had hemodialysis yesterday On EEG monitor Heart rate stable Blood pressure stable Cardiac status stable On ASA 81 mg daily, Catapres 0.2 mg TID, Cardizem 60 mg TID Hydralazine 50 mg BID, Imdur ER 30 mg daily, Cozaar 100 mg daily, lopressor 75 mg BID, Prednisone 10 mg every PM and 20 mg every AM Continue current treatment Continue current medications Will follow up Plan and treatment discussed with Dr. Calvert
[2019-01-08] MEDS: levETIRAcetam 1000mg/100ml NS 100 ML IV SCH ×3 (12:31→21:23)
--- NOTE | 2019-01-08 13:36 | CP.PCM.PN ---
<Eliel Cheek - Last Filed: 01/08/19 15:12> Subjective - Date & Time of Evaluation Date of Evaluation: 01/08/19 Time of Evaluation: 06:00 - Subjective Subjective: Patient seen and evaluated bedside. Patient drowsy, but opens eyes to being called and answers questions appropriately. Mental status improved from yesterday. Denies any complaints. Objective - Vital Signs/Intake and Output Vital Signs (last 24 hours): Temp Pulse Resp BP Pulse Ox 98.2 F 74 18 155/80 H 96 01/08/19 06:00 01/08/19 06:00 01/08/19 06:00 01/08/19 06:00 01/08/19 06:00 Intake and Output: 01/08/19 01/08/19 06:59 18:59 Intake Total 920 Output Total 0 Balance 920 - Medications Medications: Current Medications Aspirin (Ecotrin) 81 mg PO DAILY [facility] Last Admin: 01/07/19 09:45 Dose: 81 mg Calcium Acetate (Phoslo) 667 mg PO BID [facility] Last Admin: 01/07/19 17:39 Dose: 667 mg Clonidine HCl (Catapres) 0.1 mg PO Q4H PRN PRN Reason: hypertension Last Admin: 01/03/19 05:21 Dose: 0.1 mg Clonidine HCl (Catapres) 0.2 mg PO TID [facility] Last Admin: 01/08/19 12:20 Dose: Not Given Diltiazem HCl (Cardizem) 60 mg PO TID [facility] Last Admin: 01/07/19 17:37 Dose: 60 mg Heparin Sodium (Porcine) (Heparin) 5,000 units SC Q12 [facility]; Protocol Last Admin: 01/07/19 22:06 Dose: 5,000 units Hydralazine HCl (Apresoline) 50 mg PO BID [facility] Last Admin: 01/07/19 17:39 Dose: 50 mg Acyclovir 500 mg/ Sodium (Chloride) 100 mls @ 100 mls/hr IV Q24H [facility]; Protocol Last Admin: 01/08/19 06:11 Dose: 100 mls/hr Acyclovir 500 mg/ Sodium (Chloride) 100 mls @ 100 mls/hr IV TuThSa@1300 [facility]; Protocol Levetiracetam (Keppra 1000mg/100ml Ns) 100 mls @ 460 mls/hr IV Q12 [facility] Last Admin: 01/08/19 12:31 Dose: Not Given Isosorbide Mononitrate (Imdur Er) 30 mg PO DAILY [facility] Last Admin: 01/07/19 09:45 Dose: 30 mg Losartan Potassium (Cozaar) 100 mg PO DAILY [facility] Last Admin: 01/07/19 09:45 Dose: 100 mg Metoprolol Tartrate (Lopressor) 75 mg PO BID [facility] Last Admin: 01/07/19 17:38 Dose: 75 mg Midazolam HCl (Versed Inj) 2 mg IVP Q4 PRN PRN Reason: Agitation Pantoprazole Sodium (Protonix Ec Tab) 40 mg PO ACB [facility] Last Admin: 01/07/19 09:45 Dose: 40 mg Prednisone (Prednisone Tab) 10 mg PO QPM [facility] Last Admin: 01/07/19 17:38 Dose: 10 mg Prednisone (Prednisone Tab) 20 mg PO QAM [facility] Last Admin: 01/07/19 09:45 Dose: 20 mg - Labs Labs: 01/08/19 08:00 01/08/19 08:00 - Constitutional Appears: No Acute Distress - Head Exam Head Exam: ATRAUMATIC, NORMAL INSPECTION, NORMOCEPHALIC - Eye Exam Eye Exam: Normal appearance - Respiratory Exam Respiratory Exam: Clear to Ausculation Bilateral, NORMAL BREATHING PATTERN - Cardiovascular Exam Cardiovascular Exam: REGULAR RHYTHM - GI/Abdominal Exam GI & Abdominal Exam: Soft - Neurological Exam Neurological Exam: Alert, Awake, Oriented x3 Neuro motor strength exam: Left Upper Extremity: 3, Right Upper Extremity: 3, Left Lower Extremity: 3, Right Lower Extremity: 3 Assessment and Plan - Assessment and Plan (Free Text) Plan: Assessment and Plan (1) Altered mental state Assessment & Plan: -MRI Brain (12/30/18): 1. Suboptimal diagnostic quality due to motion degraded images. Asymmetric signal abnormality in the right inferior perisylvian cortex and right medial temporal lobe. 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 Please correlate with CSF analysis. MRI of the brain with intravenous contrast is recommended for further evaluation. Absence of territorial involvement mitigates against acute infarction and absence of vasogenic edema mitigates against primary neoplasm. 2. Mild chronic microangiopathic changes and mild age-related global parenchymal volume loss. -CT Head (12/30/18): No evidence of acute intracranial hemorrhage mass effect or midline shift. No significant interval change in the brain parenchyma noted since the prior study. Sphenoid and right maxillary mucosal thickening suspicious for sinusitis. -CT Head (12/27/18): Age-appropriate age related neuro degenerative findings are appreciate without definite acute intracranial pattern by standard CT criteria. Follow-up CT or MRI are available if clinically warranted. Incidental sinusitis as discussed above. -CSF no growth -LP specimen results reviewed; elevated protein at 73; wbc normal. -Continue Acyclovir IV as ordered for HSV encephalitis -Repeat MRI showed evidence of herpes encephalitis which is progressively worse Status: Acute (2) Seizure Assessment & Plan: -VEEG (12/30/18): The First 6 hours of this Video EEG show that this is an abnormal awake and sleep video EEG. There are frequent Pled like discharges no lucia in the left temporal region, as well as right temporal focal slowing. There is also encephalopathy indicated by generalized slowing throughout the background. There were no clinical or subclinical seizures noted. PLEDS or periodic sharp waves can be seen post stroke, post seizure or due to herpes encephalitis. Clinical correlation is required. -MRI Brain (12/30/18): 1. Suboptimal diagnostic quality due to motion degraded images. Asymmetric signal abnormality in the right inferior perisylvian cortex and right medial temporal lobe. 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 Please correlate with CSF analysis. MRI of the brain with intravenous contrast is recommended for further evaluation. Absence of territorial involvement mitigates against acute infarction and absence of vasogenic edema mitigates against primary neoplasm. 2. Mild chronic microangiopathic changes and mild age-related global parenchymal volume loss. -CT Head (12/30/18): No evidence of acute intracranial hemorrhage mass effect or midline shift. No significant interval change in the brain parenchyma noted since the prior study. Sphenoid and right maxillary mucosal thickening suspicious for sinusitis. -CT Head (12/27/18): Age-appropriate age related neuro degenerative findings are appreciate without definite acute intracranial pattern by standard CT criteria. -temporal lobe on MRI appears to have restrictive diffuse pattern consistent with seizure focus, will start seizure prophylaxis and treatment -continue keppra -Continue seizure precautions -EEG support the diagnosis of focal epilepsy of bi temporal origin, or multifocal tendency towards clinical seizures. In this particular case, since patient seems to have an acute encephalitis, the interictal discharges predispose her to have clinical seizures. Findings are also in keeping with a focal cortical abnormality involving the left temporal region. Lastly the findings are in keeping with a mild non specific diffuse disturbance of cortical activity, in keeping with a diffuse montoya matter dysfunction. -new VEEG pending today Status: Acute <AdamsDeemi - Last Filed: 01/18/19 10:55> Objective - Vital Signs/Intake and Output Vital Signs (last 24 hours): Temp Pulse Resp BP Pulse Ox 98.3 F 76 18 154/83 H 96 01/18/19 06:00 01/18/19 06:00 01/18/19 06:00 01/18/19 06:00 01/18/19 06:00 Intake and Output: 01/18/19 01/18/19 06:59 18:59 Intake Total 0 Balance 0 - Medications Medications: Current Medications Armodafinil (Nuvigil 150 Mg Tab) 150 mg PO DAILY [facility] Last Admin: 01/17/19 13:14 Dose: 150 mg Clonidine HCl (Catapres) 0.1 mg PO Q4H PRN PRN Reason: hypertension Last Admin: 01/14/19 06:01 Dose: 0.1 mg Clonidine HCl (Catapres) 0.1 mg PO DAILY [facility] Last Admin: 01/17/19 13:13 Dose: 0.1 mg Diltiazem HCl (Cardizem) 60 mg PO TID [facility] Last Admin: 01/17/19 18:27 Dose: 60 mg Hydralazine HCl (Apresoline) 50 mg PO BID [facility] Last Admin: 01/08/19 18:35 Dose: Not Given Hydralazine HCl (Apresoline) 50 mg PO BID [facility] Last Admin: 01/17/19 18:48 Dose: Not Given Acyclovir 500 mg/ Sodium (Chloride) 100 mls @ 100 mls/hr IV TTS [facility]; Protocol Last Admin: 01/17/19 13:15 Dose: 100 mls/hr Acyclovir 500 mg/ Sodium (Chloride) 100 mls @ 100 mls/hr IV Q24H [facility]; Protocol Stop: 02/08/19 06:01 Last Admin: 01/18/19 05:02 Dose: 100 mls/hr Levetiracetam (Keppra 500mg Ivpb) 500 mg in 100 mls @ 215 mls/hr IVPB DAILY@1400 [facility] Last Admin: 01/17/19 17:41 Dose: 215 mls/hr Isosorbide Mononitrate (Imdur Er) 30 mg PO DAILY [facility] Last Admin: 01/17/19 13:14 Dose: 30 mg Losartan Potassium (Cozaar) 100 mg PO DAILY [facility] Last Admin: 01/17/19 13:13 Dose: 100 mg Metoprolol Tartrate (Lopressor) 75 mg PO BID [facility] Last Admin: 01/17/19 18:26 Dose: 75 mg Pantoprazole Sodium (Protonix Ec Tab) 40 mg PO ACB [facility] Last Admin: 01/18/19 08:16 Dose: 40 mg Phenytoin Sodium (Dilantin) 100 mg PO TID [facility] Last Admin: 01/17/19 18:27 Dose: 100 mg Polyethylene Glycol (Miralax) 17 gm PO DAILY PRN PRN Reason: Constipation Last Admin: 01/16/19 09:28 Dose: 17 gm Prednisone (Prednisone Tab) 10 mg PO BID [facility] Last Admin: 01/17/19 18:27 Dose: 10 mg - Labs Labs: 01/18/19 07:00 01/17/19 09:00 PT 10.6 SECONDS (9.4-12.5) 01/15/19 10:20 INR 0.94 01/15/19 10:20 APTT 25.6 Seconds (26.9-38.3) L 01/15/19 10:20 Assessment and Plan - Assessment and Plan (Free Text) Plan: All medical record entries made by the Resident were at my direction and personally dictated by me. I have reviewed the chart and agree that the record accurately reflects my personal performance of the history, physical exam, medical decision making, and the department course for this patient. I have also personally directed, reviewed, and agree with the discharge instructions and disposition. Miss Badillo is a 68 yr old woman who has severe right temporal encephalitis, and seizures, that at times are intermittent, with encephalitis as well. We will continue Keppra and Acyclovir. Dr. Aadms Neurology
--- NOTE | 2019-01-08 13:38 | CP.PCM.PN ---
<Tl Gaxiola - Last Filed: 01/08/19 13:36> Subjective - Date & Time of Evaluation Date of Evaluation: 01/08/19 Time of Evaluation: 07:35 - Subjective Subjective: Tl Gaxiola D.O. PGY-3, Internal Medicine Resident, Infectious Disease Progress Note 68 year old female with a PMH of Daphnie's vasculitis, ESRD on HD T/T/S, breast CA and HTN who presented for tachycardia, found to have sepsis and HAP and hospital course complicated by altered mental status concerning for herpes encephalitis. Patient was seen and examined at bedside. Patient still somewhat somnolent. No acute overnight events. Objective - Vital Signs/Intake and Output Vital Signs (last 24 hours): Temp Pulse Resp BP Pulse Ox 98.2 F 74 18 155/80 H 96 01/08/19 06:00 01/08/19 06:00 01/08/19 06:00 01/08/19 06:00 01/08/19 06:00 Intake and Output: 01/08/19 01/08/19 06:59 18:59 Intake Total 920 Output Total 0 Balance 920 - Medications Medications: Current Medications Aspirin (Ecotrin) 81 mg PO DAILY [facility] Last Admin: 01/07/19 09:45 Dose: 81 mg Calcium Acetate (Phoslo) 667 mg PO BID [facility] Last Admin: 01/07/19 17:39 Dose: 667 mg Clonidine HCl (Catapres) 0.1 mg PO Q4H PRN PRN Reason: hypertension Last Admin: 01/03/19 05:21 Dose: 0.1 mg Clonidine HCl (Catapres) 0.2 mg PO TID [facility] Last Admin: 01/08/19 12:20 Dose: Not Given Diltiazem HCl (Cardizem) 60 mg PO TID [facility] Last Admin: 01/07/19 17:37 Dose: 60 mg Heparin Sodium (Porcine) (Heparin) 5,000 units SC Q12 [facility]; Protocol Last Admin: 01/07/19 22:06 Dose: 5,000 units Hydralazine HCl (Apresoline) 50 mg PO BID [facility] Last Admin: 01/07/19 17:39 Dose: 50 mg Acyclovir 500 mg/ Sodium (Chloride) 100 mls @ 100 mls/hr IV Q24H [facility]; Protocol Last Admin: 01/08/19 06:11 Dose: 100 mls/hr Acyclovir 500 mg/ Sodium (Chloride) 100 mls @ 100 mls/hr IV TuThSa@1300 [facility]; Protocol Levetiracetam (Keppra 1000mg/100ml Ns) 100 mls @ 460 mls/hr IV Q12 [facility] Last Admin: 01/08/19 12:31 Dose: Not Given Isosorbide Mononitrate (Imdur Er) 30 mg PO DAILY [facility] Last Admin: 01/07/19 09:45 Dose: 30 mg Losartan Potassium (Cozaar) 100 mg PO DAILY [facility] Last Admin: 01/07/19 09:45 Dose: 100 mg Metoprolol Tartrate (Lopressor) 75 mg PO BID [facility] Last Admin: 01/07/19 17:38 Dose: 75 mg Midazolam HCl (Versed Inj) 2 mg IVP Q4 PRN PRN Reason: Agitation Pantoprazole Sodium (Protonix Ec Tab) 40 mg PO ACB [facility] Last Admin: 01/07/19 09:45 Dose: 40 mg Prednisone (Prednisone Tab) 10 mg PO QPM [facility] Last Admin: 01/07/19 17:38 Dose: 10 mg Prednisone (Prednisone Tab) 20 mg PO QAM [facility] Last Admin: 01/07/19 09:45 Dose: 20 mg - Labs Labs: 01/08/19 08:00 01/08/19 08:00 - Constitutional Appears: Non-toxic, No Acute Distress, resting comfortably, arousable - Head Exam Head Exam: ATRAUMATIC, NORMOCEPHALIC - Eye Exam Eye Exam: EOMI. absent: Scleral icterus - ENT Exam ENT Exam: Mucous Membranes Moist, Normal Oropharynx - Neck Exam Neck Exam: Normal Inspection. absent: Meningismus - Respiratory Exam Respiratory Exam: absent: Rhonchi, Wheezes - Cardiovascular Exam Cardiovascular Exam: +S1, +S2. absent: Gallop, Rubs - GI/Abdominal Exam GI & Abdominal Exam: Soft. absent: Tenderness - Extremities Exam Extremities Exam: absent: Calf Tenderness - Neurological Exam Additional comments: awake, alert, oriented to self, place, follows simple commands - Skin Skin Exam: Dry, Warm Assessment and Plan - Assessment and Plan (Free Text) Assessment: 68 year old female with a PMH of Daphnie's vasculitis, ESRD on HD T/T/S, breast CA and HTN who presented for tachycardia, found to have sepsis and HAP and hospital course complicated by altered mental status concerning for herpes type 2 encephalitis. 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) Continue acyclovir day 09/10 Continues to be afebrile but now with leukopenia Neurology follow, recs appreciated and reviewed We will follow with you Patient was seen and examined and case will be discussed with attending physician Thank you for the pleasure participating in the care of this interesting patient <Ramana Haywood - Last Filed: 01/08/19 16:35> Objective - Vital Signs/Intake and Output Vital Signs (last 24 hours): Temp Pulse Resp BP Pulse Ox 97.2 F L 65 18 155/80 H 96 01/08/19 12:00 01/08/19 12:00 01/08/19 12:00 01/08/19 13:39 01/08/19 06:00 Intake and Output: 01/08/19 01/08/19 06:59 18:59 Intake Total 920 Output Total 0 Balance 920 - Medications Medications: Current Medications Aspirin (Ecotrin) 81 mg PO DAILY [facility] Last Admin: 01/08/19 13:40 Dose: 81 mg Calcium Acetate (Phoslo) 667 mg PO BID [facility] Last Admin: 01/08/19 13:40 Dose: 667 mg Clonidine HCl (Catapres) 0.1 mg PO Q4H PRN PRN Reason: hypertension Last Admin: 01/03/19 05:21 Dose: 0.1 mg Clonidine HCl (Catapres) 0.2 mg PO TID [facility] Last Admin: 01/08/19 14:06 Dose: 0.2 mg Diltiazem HCl (Cardizem) 60 mg PO TID [facility] Last Admin: 01/08/19 13:39 Dose: 60 mg Heparin Sodium (Porcine) (Heparin) 5,000 units SC Q12 [facility]; Protocol Last Admin: 01/08/19 13:38 Dose: 5,000 units Hydralazine HCl (Apresoline) 50 mg PO BID [facility] Last Admin: 01/08/19 13:39 Dose: 50 mg Acyclovir 500 mg/ Sodium (Chloride) 100 mls @ 100 mls/hr IV Q24H [facility]; Protocol Last Admin: 01/08/19 06:11 Dose: 100 mls/hr Acyclovir 500 mg/ Sodium (Chloride) 100 mls @ 100 mls/hr IV TuThSa@1300 [facility]; Protocol Last Admin: 01/08/19 13:44 Dose: 100 mls/hr Levetiracetam (Keppra 1000mg/100ml Ns) 100 mls @ 460 mls/hr IV Q12 [facility] Last Admin: 01/08/19 13:34 Dose: 460 mls/hr Isosorbide Mononitrate (Imdur Er) 30 mg PO DAILY [facility] Last Admin: 01/08/19 13:38 Dose: 30 mg Losartan Potassium (Cozaar) 100 mg PO DAILY [facility] Last Admin: 01/08/19 13:39 Dose: 100 mg Metoprolol Tartrate (Lopressor) 75 mg PO BID [facility] Last Admin: 01/08/19 13:40 Dose: 75 mg Midazolam HCl (Versed Inj) 2 mg IVP Q4 PRN PRN Reason: Agitation Pantoprazole Sodium (Protonix Ec Tab) 40 mg PO ACB [facility] Last Admin: 01/08/19 13:40 Dose: 40 mg Prednisone (Prednisone Tab) 10 mg PO QPM [facility] Last Admin: 01/07/19 17:38 Dose: 10 mg Prednisone (Prednisone Tab) 20 mg PO QAM [facility] Last Admin: 01/08/19 13:40 Dose: 20 mg - Labs Labs: 01/08/19 08:00 01/08/19 08:00 Attending/Attestation - Attestation I have personally seen and examined this patient.: Yes I have fully participated in the care of the patient.: Yes I have reviewed all pertinent clinical information, including history, physical exam and plan: Yes
[2019-01-08] MEDS: Pantoprazole 40 mg EC Tab PO SCH (13:40)
--- NOTE | 2019-01-08 15:51 | CP.PCM.PCO ---
Physician Communication Note - Physician Communication Note Physician Communication Note: Pt.seen in bed,after return from HD,drowsy,arousable,in no acute distress,
--- NOTE | 2019-01-08 15:52 | CP.PCM.PCO ---
Physician Communication Note - Physician Communication Note Physician Communication Note: Video EEG monitoring resumed per neuro, Keppra increased dose 1000mg.
--- NOTE | 2019-01-08 20:16 | PN ---
DATE: 01/08/2019 SUBJECTIVE: The patient is seen at the end of dialysis. She is lethargic, but arousable. She opens her eyes. She recognizes me today. She recognizes her today. PHYSICAL EXAMINATION: GENERAL: Elderly lady lying in bed. VITAL SIGNS: Blood pressure 121/66, heart rate 65, respiratory rate 18, and temperature 97.2. HEENT: Normocephalic and atraumatic. Positive pallor. NECK: Supple. No JVD. LUNGS: Bilateral equal air entry, bilateral equal expansion. CARDIAC: S1 and S2. Regular rate and rhythm. No murmur. No rub. ABDOMEN: Obese, distended, soft, and nontender. Bowel sounds present. EXTREMITIES: No lower extremity edema. LABORATORY DATA: WBC 2.5, hemoglobin 9, hematocrit 27, and platelets 153. Sodium 134, potassium 4, chloride 102, CO2 of 25, BUN 77, creatinine 3.7, glucose 138, calcium 8.1, phosphorus 3.8, magnesium 1.8, and albumin 2.8. HSV-2 DNA detected. CURRENT MEDICATIONS: Acyclovir 500 mg daily and 500 after each dialysis, Apresoline 50 b.i.d., Cardizem 60 t.i.d., Catapres 0.2 t.i.d., losartan, potassium 100, Ecotrin 81, Imdur 30, Keppra 1000, Lopressor 75 b.i.d., PhosLo, prednisone 10 mg q.p.m. and 20 mg q.a.m., and Protonix. ASSESSMENT: 1. Herpes encephalitis, altered mental status. 2. Persistent seizures. 3. Hypertension. 4. Pauci-immune glomerulonephritis, recurrence. Poor response to treatment. The patient remains dialysis dependent. 5. Hypoalbuminemia. 6. Anemia. 7. Phosphorus controlled. PLAN: 1. Stable dialysis today. 2. Keppra increased by Neurology, continue Keppra 1000 mg daily. 3. Continue current antihypertensives, clonidine patch was discontinued yesterday, but the patient still had a patch on today, which was removed now. 4. Continue clonidine 0.2 t.i.d. 5. Continue prednisone 20 in a.m. and 10 in p.m. 6. Continue to monitor closely. 7. Next dialysis will be on Saturday. Monserrat French MD [facility] # [id number]
[2019-01-09] MEDS: Acyclovir 500 MG in Sodium Chloride 0.9% 100 ML IV SCH (05:42)
--- NOTE | 2019-01-09 08:56 | CP.PCM.PN ---
<Eliel Cheek - Last Filed: 01/09/19 13:33> Subjective - Date & Time of Evaluation Date of Evaluation: 01/09/19 Time of Evaluation: 06:00 - Subjective Subjective: Patient seen and evaluated bedside. No acute issues overnight. Patient is alert when called for, closes her eyes after a while but mental status is improving. Objective - Vital Signs/Intake and Output Vital Signs (last 24 hours): Temp Pulse Resp BP Pulse Ox 98.1 F 70 18 116/69 96 01/09/19 06:00 01/09/19 06:00 01/09/19 06:00 01/09/19 06:00 01/09/19 06:00 Intake and Output: 01/09/19 01/09/19 06:59 18:59 Intake Total 720 Balance 720 - Medications Medications: Current Medications Aspirin (Ecotrin) 81 mg PO DAILY [facility] Last Admin: 01/08/19 13:40 Dose: 81 mg Calcium Acetate (Phoslo) 667 mg PO BID [facility] Last Admin: 01/08/19 18:59 Dose: 667 mg Clonidine HCl (Catapres) 0.1 mg PO Q4H PRN PRN Reason: hypertension Last Admin: 01/03/19 05:21 Dose: 0.1 mg Clonidine HCl (Catapres) 0.2 mg PO TID [facility] Last Admin: 01/08/19 18:34 Dose: Not Given Diltiazem HCl (Cardizem) 60 mg PO TID [facility] Last Admin: 01/08/19 18:59 Dose: 60 mg Heparin Sodium (Porcine) (Heparin) 5,000 units SC Q12 [facility]; Protocol Last Admin: 01/08/19 21:25 Dose: 5,000 units Hydralazine HCl (Apresoline) 50 mg PO BID [facility] Last Admin: 01/08/19 18:35 Dose: Not Given Acyclovir 500 mg/ Sodium (Chloride) 100 mls @ 100 mls/hr IV Q24H [facility]; Protocol Last Admin: 01/09/19 05:42 Dose: 100 mls/hr Acyclovir 500 mg/ Sodium (Chloride) 100 mls @ 100 mls/hr IV TuThSa@1300 [facility]; Protocol Last Admin: 01/08/19 13:44 Dose: 100 mls/hr Levetiracetam (Keppra 1000mg/100ml Ns) 100 mls @ 460 mls/hr IV Q12 [facility] Last Admin: 01/08/19 21:23 Dose: 460 mls/hr Isosorbide Mononitrate (Imdur Er) 30 mg PO DAILY [facility] Last Admin: 01/08/19 13:38 Dose: 30 mg Losartan Potassium (Cozaar) 100 mg PO DAILY [facility] Last Admin: 01/08/19 13:39 Dose: 100 mg Metoprolol Tartrate (Lopressor) 75 mg PO BID [facility] Last Admin: 01/08/19 18:35 Dose: Not Given Midazolam HCl (Versed Inj) 2 mg IVP Q4 PRN PRN Reason: Agitation Pantoprazole Sodium (Protonix Ec Tab) 40 mg PO ACB [facility] Last Admin: 01/08/19 13:40 Dose: 40 mg Prednisone (Prednisone Tab) 10 mg PO QPM [facility] Last Admin: 01/08/19 18:59 Dose: 10 mg Prednisone (Prednisone Tab) 20 mg PO QAM [facility] Last Admin: 01/08/19 13:40 Dose: 20 mg - Labs Labs: 01/08/19 08:00 01/08/19 08:00 - Constitutional Appears: No Acute Distress - Head Exam Head Exam: ATRAUMATIC, NORMAL INSPECTION, NORMOCEPHALIC - Eye Exam Eye Exam: EOMI, Normal appearance - ENT Exam ENT Exam: Mucous Membranes Moist - Cardiovascular Exam Cardiovascular Exam: REGULAR RHYTHM - GI/Abdominal Exam GI & Abdominal Exam: Soft - Neurological Exam Neurological Exam: Alert, Awake, Oriented x3 Neuro motor strength exam: Left Upper Extremity: 4, Right Upper Extremity: 4, Left Lower Extremity: 3, Right Lower Extremity: 3 Assessment and Plan - Assessment and Plan (Free Text) Plan: Assessment and Plan (1) Altered mental state Assessment & Plan: -MRI Brain (12/30/18): 1. Suboptimal diagnostic quality due to motion degraded images. Asymmetric signal abnormality in the right inferior perisylvian cortex and right medial temporal lobe. 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 Please correlate with CSF analysis. MRI of the brain with intravenous contrast is recommended for further evaluation. Absence of territorial involvement mitigates against acute infarction and absence of vasogenic edema mitigates against primary neoplasm. 2. Mild chronic microangiopathic changes and mild age-related global parenchymal volume loss. -CT Head (12/30/18): No evidence of acute intracranial hemorrhage mass effect or midline shift. No significant interval change in the brain parenchyma noted since the prior study. Sphenoid and right maxillary mucosal thickening allen spicious for sinusitis. -CT Head (12/27/18): Age-appropriate age related neuro degenerative findings are appreciate without definite acute intracranial pattern by standard CT criteria. Follow-up CT or MRI are available if clinically warranted. Incidental sinusitis as discussed above. -CSF no growth -LP specimen results reviewed; elevated protein at 73; wbc normal. -Continue Acyclovir IV as ordered for HSV encephalitis -Repeat MRI showed evidence of herpes encephalitis which is progressively worse -modanifil one time dose Status: Acute (2) Seizure Assessment & Plan: -VEEG (12/30/18): The First 6 hours of this Video EEG show that this is an abnormal awake and sleep video EEG. There are frequent Pled like discharges noted in the left temporal region, as well as right temporal focal slowing. There is also encephalopathy indicated by generalized slowing throughout the background. There were no clinical or subclinical seizures noted. PLEDS or periodic sharp waves can be seen post stroke, post seizure or due to herpes e ncephalitis. Clinical correlation is required. -MRI Brain (12/30/18): 1. Suboptimal diagnostic quality due to motion degraded images. Asymmetric signal abnormality in the right inferior perisylvian cortex and right medial temporal lobe. 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 Please correlate with CSF analysis. MRI of the brain with intravenous contrast is recommended for further evaluation. Absence of territorial involvement miti padilla against acute infarction and absence of vasogenic edema mitigates against primary neoplasm. 2. Mild chronic microangiopathic changes and mild age- related global parenchymal volume loss. -CT Head (12/30/18): No evidence of acute intracranial hemorrhage mass effect or midline shift. No significant interval change in the brain parenchyma noted since the prior study. Sphenoid and right maxillary mucosal thickening suspicious for sinusitis. -CT Head (12/27/18): Age-appropriate age related neuro degenerative findings are appreciate without definite acute intracranial pattern by standard CT criteria. 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 In this particular case, since patient seems to have an acute encephalitis, the interictal discharges predispose her to have clinical seizures. Findings are also in keeping with a focal cortical abnormality involving the left temporal region. Lastly the findings are in keeping with a mild non specific diffuse disturbance of cortical activity, in keeping with a diffuse montoya matter dysfunction. -repeat EEG ordered -Keppra 1500mg for today, will taper tomorrow, please do not discontinue Keppra Status: Acute <Adams,Davidutami - Last Filed: 01/18/19 10:33> Objective - Vital Signs/Intake and Output Vital Signs (last 24 hours): Temp Pulse Resp BP Pulse Ox 98.3 F 76 18 154/83 H 96 01/18/19 06:00 01/18/19 06:00 01/18/19 06:00 01/18/19 06:00 01/18/19 06:00 Intake and Output: 01/18/19 01/18/19 06:59 18:59 Intake Total 0 Balance 0 - Medications Medications: Current Medications Armodafinil (Nuvigil 150 Mg Tab) 150 mg PO DAILY [facility] Last Admin: 01/17/19 13:14 Dose: 150 mg Clonidine HCl (Catapres) 0.1 mg PO Q4H PRN PRN Reason: hypertension Last Admin: 01/14/19 06:01 Dose: 0.1 mg Clonidine HCl (Catapres) 0.1 mg PO DAILY [facility] Last Admin: 01/17/19 13:13 Dose: 0.1 mg Diltiazem HCl (Cardizem) 60 mg PO TID [facility] Last Admin: 01/17/19 18:27 Dose: 60 mg Hydralazine HCl (Apresoline) 50 mg PO BID [facility] Last Admin: 01/08/19 18:35 Dose: Not Given Hydralazine HCl (Apresoline) 50 mg PO BID [facility] Last Admin: 01/17/19 18:48 Dose: Not Given Acyclovir 500 mg/ Sodium (Chloride) 100 mls @ 100 mls/hr IV TTS [facility]; Protocol Last Admin: 01/17/19 13:15 Dose: 100 mls/hr Acyclovir 500 mg/ Sodium (Chloride) 100 mls @ 100 mls/hr IV Q24H [facility]; Protocol Stop: 02/08/19 06:01 Last Admin: 01/18/19 05:02 Dose: 100 mls/hr Levetiracetam (Keppra 500mg Ivpb) 500 mg in 100 mls @ 215 mls/hr IVPB DAILY@1400 [facility] Last Admin: 01/17/19 17:41 Dose: 215 mls/hr Isosorbide Mononitrate (Imdur Er) 30 mg PO DAILY [facility] Last Admin: 01/17/19 13:14 Dose: 30 mg Losartan Potassium (Cozaar) 100 mg PO DAILY [facility] Last Admin: 01/17/19 13:13 Dose: 100 mg Metoprolol Tartrate (Lopressor) 75 mg PO BID [facility] Last Admin: 01/17/19 18:26 Dose: 75 mg Pantoprazole Sodium (Protonix Ec Tab) 40 mg PO ACB [facility] Last Admin: 01/18/19 08:16 Dose: 40 mg Phenytoin Sodium (Dilantin) 100 mg PO TID [facility] Last Admin: 01/17/19 18:27 Dose: 100 mg Polyethylene Glycol (Miralax) 17 gm PO DAILY PRN PRN Reason: Constipation Last Admin: 01/16/19 09:28 Dose: 17 gm Prednisone (Prednisone Tab) 10 mg PO BID [facility] Last Admin: 01/17/19 18:27 Dose: 10 mg - Labs Labs: 01/18/19 07:00 01/17/19 09:00 PT 10.6 SECONDS (9.4-12.5) 01/15/19 10:20 INR 0.94 01/15/19 10:20 APTT 25.6 Seconds (26.9-38.3) L 01/15/19 10:20 Assessment and Plan - Assessment and Plan (Free Text) Plan: All medical record entries made by the Resident were at my direction and personally dictated by me. I have reviewed the chart and agree that the record accurately reflects my personal performance of the history, physical exam, medical decision making, and the department course for this patient. I have also personally directed, reviewed, and agree with the discharge instructions and disposition. Miss Badillo is a woman with right temporal herpes encephalitis and intermittent seizures. She is now on Keppra to control seizures, but we will taper it down when her EEG normalizes. DR. Adams Neurology
[2019-01-09] MEDS: Pantoprazole 40 mg EC Tab PO SCH (09:00)
--- NOTE | 2019-01-09 09:59 | PN ---
DATE: 01/09/2019 REASON FOR CONSULTATION: Followup. Elevated troponin, end-stage renal disease, started on dialysis. Admitted with altered mental status, still mentation fluctuating. SUBJECTIVE: The patient is sleeping, on waking up denies any chest pain, shortness of breath or any palpitation, but still off and on gets confused. PHYSICAL EXAMINATION VITAL SIGNS: Temperature afebrile. Heart rate 70 and blood pressure 116/69. HEENT: PERRLA. Extraocular muscles intact. NECK: Supple. No carotid bruit. No thyromegaly. CHEST: Clear to auscultation. HEART: S1 and S2, regular. ABDOMEN: Soft. EXTREMITIES: Clubbing and cyanosis negative. LABORATORY DATA: WBC 2.5, hemoglobin 9, hematocrit 26.8 and platelet count 153. Chemistry shows sodium 134, potassium 4, chloride 102, carbon dioxide 25, anion gap 11, BUN 77 and creatinine 3.7. IMPRESSION: A 68-year-old female with a past medical history significant for Daphnie's granuloma, pauci-immune glomerulonephritis, history of gastroesophageal reflux disease, admitted with acute kidney injury, chronic renal insufficiency and altered mental status. The patient has a twice electroencephalogram done and the next one is pending, and still, the patient had off and on waxing and waning mental status. Echocardiogram was done, that shows preserved left ventricular function, moderate mitral regurgitation and mild tricuspid regurgitation. On admission, the patient had a borderline troponin positive in face of acute renal insufficiency, significance unknown, probably secondary to acute kidney injury. The patient is asymptomatic from cardiac point of view. RECOMMENDATION: Medical treatment from Cardiology point of view. No plan for invasive cardiac workup. Aggressive medical treatment. A Neurology evaluation. From Cardiology point of view, as mentioned aggressive medical treatment. Continue Cardizem 60 mg three times a day and continue hydralazine 50 mg b.i.d. Continue Losartan, Imdur 30 mg daily and metoprolol 75 mg p.o. b.i.d. Yesterday, the patient has blood pressure was low so we will cut down hydralazine and put p.r.n. to prevent any hypotension or marie episodes. I will put Cardizem 60 mg three times a day, hold for systolic less than 130 and we will put as well as a holding parameter for hydralazine as well. As the patient is already on clonidine 0.1 mg every 6 hours p.r.n., so we will hold hydralazine. Thank you Dr. Webb, for providing us the opportunity in taking care of the patient, Beatriz Badillo. Mohini Calvert MD
[2019-01-09] MEDS: levETIRAcetam 1000mg/100ml NS 100 ML IV SCH (10:10)
--- NOTE | 2019-01-09 14:28 | CP.PCM.PN ---
<Tl Gaxiola - Last Filed: 01/09/19 14:26> Subjective - Date & Time of Evaluation Date of Evaluation: 01/09/19 Time of Evaluation: 09:00 - Subjective Subjective: Tl Gaxiola D.O. PGY-3, Internal Medicine Resident, Infectious Disease Progress Note 68 year old female with a PMH of Daphnie's vasculitis, ESRD on HD T/T/S, breast CA and HTN who presented for tachycardia, found to have sepsis and HAP and hospital course complicated by altered mental status concerning for herpes encephalitis. Patient was seen and examined at bedside. Had extended discussion with boyfriend at bedside about prognosis and clinical course. All questions answered. Still lethargic but arousable. Objective - Vital Signs/Intake and Output Vital Signs (last 24 hours): Temp Pulse Resp BP Pulse Ox 98.1 F 63 18 122/74 96 01/09/19 06:00 01/09/19 13:55 01/09/19 06:00 01/09/19 13:55 01/09/19 06:00 Intake and Output: 01/09/19 01/09/19 06:59 18:59 Intake Total 720 Balance 720 - Medications Medications: Current Medications Aspirin (Ecotrin) 81 mg PO DAILY [facility] Last Admin: 01/09/19 10:07 Dose: 81 mg Calcium Acetate (Phoslo) 667 mg PO BID [facility] Last Admin: 01/09/19 10:07 Dose: 667 mg Clonidine HCl (Catapres) 0.1 mg PO Q4H PRN PRN Reason: hypertension Last Admin: 01/03/19 05:21 Dose: 0.1 mg Clonidine HCl (Catapres) 0.2 mg PO TID [facility] Last Admin: 01/09/19 13:55 Dose: Not Given Diltiazem HCl (Cardizem) 60 mg PO TID [facility] Last Admin: 01/09/19 13:53 Dose: Not Given Heparin Sodium (Porcine) (Heparin) 5,000 units SC Q12 [facility]; Protocol Last Admin: 01/09/19 10:08 Dose: 5,000 units Hydralazine HCl (Apresoline) 50 mg PO BID [facility] Last Admin: 01/08/19 18:35 Dose: Not Given Acyclovir 500 mg/ Sodium (Chloride) 100 mls @ 100 mls/hr IV Q24H [facility]; Protocol Last Admin: 01/09/19 05:42 Dose: 100 mls/hr Acyclovir 500 mg/ Sodium (Chloride) 100 mls @ 100 mls/hr IV TuThSa@1300 [facility]; Protocol Last Admin: 01/08/19 13:44 Dose: 100 mls/hr Levetiracetam (Keppra 500mg Ivpb) 500 mg in 100 mls @ 215 mls/hr IVPB ONCE ONE Stop: 01/09/19 22:27 Isosorbide Mononitrate (Imdur Er) 30 mg PO DAILY [facility] Last Admin: 01/09/19 10:31 Dose: Not Given Losartan Potassium (Cozaar) 100 mg PO DAILY [facility] Last Admin: 01/09/19 10:13 Dose: 100 mg Metoprolol Tartrate (Lopressor) 75 mg PO BID [facility] Last Admin: 01/09/19 10:04 Dose: 75 mg Midazolam HCl (Versed Inj) 2 mg IVP Q4 PRN PRN Reason: Agitation Pantoprazole Sodium (Protonix Ec Tab) 40 mg PO ACB [facility] Last Admin: 01/09/19 09:00 Dose: 40 mg Prednisone (Prednisone Tab) 10 mg PO QPM [facility] Last Admin: 01/08/19 18:59 Dose: 10 mg Prednisone (Prednisone Tab) 20 mg PO QAM [facility] Last Admin: 01/09/19 10:08 Dose: 20 mg - Labs Labs: 01/08/19 08:00 01/08/19 08:00 - Constitutional Appears: Non-toxic, No Acute Distress, arousable - Head Exam Head Exam: ATRAUMATIC, NORMOCEPHALIC - Eye Exam Eye Exam: EOMI. absent: Scleral icterus - ENT Exam ENT Exam: Mucous Membranes Moist - Neck Exam Neck Exam: Normal Inspection. absent: Meningismus - Respiratory Exam Respiratory Exam: absent: Rhonchi, Wheezes - Cardiovascular Exam Cardiovascular Exam: +S1, +S2. absent: Gallop, Rubs - GI/Abdominal Exam GI & Abdominal Exam: Soft. absent: Tenderness - Extremities Exam Extremities Exam: absent: Calf Tenderness - Neurological Exam Additional comments: awake, alert, oriented to self, place, follows simple commands - Skin Skin Exam: Dry, Warm Assessment and Plan - Assessment and Plan (Free Text) Assessment: 68 year old female with a PMH of Daphnie's vasculitis, ESRD on HD T/T/S, breast CA and HTN who presented for tachycardia, found to have sepsis and HAP and hospital course complicated by altered mental status concerning for herpes type 2 encephalitis. 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) Continue acyclovir day 10/10 Discussed at length with Guerrero (boyfriend) about how unfortunately at this time we are unable to predict her recovery in terms of mental capacity and memory, and that likely the antiepileptic medications do have a degree of causation for her somnolence and that unforunately neurology must ensure that she does have worsening symptoms Neurology recs appreciated We will follow with you Patient was seen and examined and case will be discussed with attending physician Thank you for the pleasure participating in the care of this interesting patient <Ramana Haywood - Last Filed: 01/09/19 19:17> Objective - Vital Signs/Intake and Output Vital Signs (last 24 hours): Temp Pulse Resp BP Pulse Ox 97.7 F 75 19 136/79 96 01/09/19 17:31 01/09/19 18:32 01/09/19 17:31 01/09/19 18:32 01/09/19 06:00 Intake and Output: 01/09/19 01/10/19 18:59 06:59 Intake Total 740 Output Total 300 Balance 440 - Medications Medications: Current Medications Aspirin (Ecotrin) 81 mg PO DAILY [facility] Last Admin: 01/09/19 10:07 Dose: 81 mg Calcium Acetate (Phoslo) 667 mg PO BID [facility] Last Admin: 01/09/19 18:33 Dose: 667 mg Clonidine HCl (Catapres) 0.1 mg PO Q4H PRN PRN Reason: hypertension Last Admin: 01/03/19 05:21 Dose: 0.1 mg Clonidine HCl (Catapres) 0.2 mg PO BID [facility] Last Admin: 01/09/19 18:28 Dose: Not Given Darbepoetin Sheldon (Aranesp) 60 mcg IVP ONCE ONE Stop: 01/10/19 08:01 Diltiazem HCl (Cardizem) 60 mg PO TID [facility] Last Admin: 01/09/19 18:32 Dose: 60 mg Heparin Sodium (Porcine) (Heparin) 5,000 units SC Q12 [facility]; Protocol Last Admin: 01/09/19 10:08 Dose: 5,000 units Hydralazine HCl (Apresoline) 50 mg PO BID [facility] Last Admin: 01/08/19 18:35 Dose: Not Given Acyclovir 500 mg/ Sodium (Chloride) 100 mls @ 100 mls/hr IV Q24H [facility]; Protocol Last Admin: 01/09/19 05:42 Dose: 100 mls/hr Acyclovir 500 mg/ Sodium (Chloride) 100 mls @ 100 mls/hr IV TuThSa@1300 [facility]; Protocol Last Admin: 01/08/19 13:44 Dose: 100 mls/hr Levetiracetam (Keppra 500mg Ivpb) 500 mg in 100 mls @ 215 mls/hr IVPB ONCE ONE Stop: 01/09/19 22:27 Isosorbide Mononitrate (Imdur Er) 30 mg PO DAILY [facility] Last Admin: 01/09/19 10:31 Dose: Not Given Losartan Potassium (Cozaar) 100 mg PO DAILY [facility] Last Admin: 01/09/19 10:13 Dose: 100 mg Metoprolol Tartrate (Lopressor) 75 mg PO BID [facility] Last Admin: 01/09/19 18:33 Dose: 75 mg Midazolam HCl (Versed Inj) 2 mg IVP Q4 PRN PRN Reason: Agitation Pantoprazole Sodium (Protonix Ec Tab) 40 mg PO ACB [facility] Last Admin: 01/09/19 09:00 Dose: 40 mg Prednisone (Prednisone Tab) 10 mg PO QPM [facility] Last Admin: 01/09/19 18:32 Dose: 10 mg Prednisone (Prednisone Tab) 20 mg PO QAM [facility] Last Admin: 01/09/19 10:08 Dose: 20 mg - Labs Labs: 01/08/19 08:00 01/08/19 08:00 Attending/Attestation - Attestation I have personally seen and examined this patient.: Yes I have fully participated in the care of the patient.: Yes I have reviewed all pertinent clinical information, including history, physical exam and plan: Yes
--- NOTE | 2019-01-09 16:12 | CP.PCM.PCO ---
Physician Communication Note - Physician Communication Note Physician Communication Note: patient lethargic,arousable, on keppra IV, Acyclovir,2nd neuro opinion pend
--- NOTE | 2019-01-09 17:32 | PN ---
DATE: 01/09/2019 SUBJECTIVE: The patient is seen lying in bed. She is very lethargic, but arousable. She opens her eyes when you stimulate her. She recognizes her . She does not recognize me today. OBJECTIVE: GENERAL: Elderly lady lying in bed. VITAL SIGNS: Blood pressure 122/74, heart rate 63, respiratory rate 18-20, temperature 98.1. HEENT: Normocephalic, atraumatic, positive pallor. NECK: Supple, no JVD. LUNGS: Bilateral equal entry, bilateral equal expansion. CARDIAC: S1 and S2, regular rate and rhythm, no murmur, no rub. ABDOMEN: Obese, distended, soft, nontender, bowel sounds present. EXTREMITIES: No lower extremity edema. LABORATORY DATA: WBC 2.5, hemoglobin 9.1, hematocrit 27, platelets 153. Sodium 134, potassium 4.0, chloride 102, CO2 of 35, BUN 77, creatinine 3.7, glucose 138, calcium 8.1, phosphorus 3.8 magnesium 1.8. CURRENT MEDICATIONS: Acyclovir 500 mg IV piggyback daily and additional 500 mg post dialysis, Apresoline 50 b.i.d., Cardizem 60 t.i.d., Catapres 0.2 b.i.d., losartan 100, Ecotrin, Imdur 30, Keppra, Lopressor 75 b.i.d., prednisone 20 in a.m. and 10 in p.m., Protonix, Versed, Nuvigil 150 given this morning. ASSESSMENT: 1. Herpes encephalitis. 2.. Seizures. 3. Immunocompromised host. 4. Altered mental status, patient remains lethargic. 5. Hypertension. 6. with recurrence 7. Anemia of chronic disease. PLAN: 1. Continue acyclovir as per ID recommendations. 2. Continue Keppra as per neurology recommendations. 3. Next dialysis will be tomorrow. 4. Long discussion with regarding marginal improvement in her status. Discussed with the patient option of transfer. After a lengthy discussion, we have agreed upon monitoring for another 48 hours. The patient is scheduled to have another EEG as per neurology service. Change clonidine to 0.2 b.i.d., intended to slowly taper of clonidine, which may be contributing to somnolence?.. We will discuss with Dr. Webb Monserrat French MD
--- NOTE | 2019-01-09 21:49 | CON ---
DATE: 01/09/2019 HISTORY OF PRESENT ILLNESS: This is a 68-year-old female with past medical history of Daphnie vasculitis, end-stage renal disease, breast CA, hypertension, who came to the hospital to have sepsis and also has altered mental status, possibly hepatic encephalitis. MRI of the head showed right temporal lesion and called to evaluate the patient for possible seizure and the patient getting Keppra. PAST MEDICAL HISTORY: As above. SOCIAL HISTORY: Does not smoke, does not drink. MEDICATIONS: The patient is also getting acyclovir, prednisone, and also Keppra. PHYSICAL EXAMINATION GENERAL: The patient is lying comfortably on the chair and boyfriend at bedside. HEENT: Normocephalic, atraumatic. NECK: Supple. NEUROLOGIC: Awake to self, open eyes to verbal commands, and follow simple one-step commands. Pupil reactive. EOM intact. Visual field full. No fascial asymmetry. Tongue midline. Motor examination, spontaneous movement of all the extremities noted. Deep tendon reflexes 1+. Plantars are downgoing. Sensory appears intact. Cerebellar gait deferred. IMPRESSION AND PLAN: Possibly right temporal encephalitis and seizure secondary to above. The patient is on Keppra. Continue present management. We will follow up. Darrell Herndon MD
[2019-01-09] MEDS ORDERED: levETIRAcetam 500mg IVPB 500 MG/100 ML BAG IVPB ONE (22:00)
[2019-01-10] MEDS ORDERED: levETIRAcetam 500mg IVPB 500 MG/100 ML BAG IVPB ONE (01:15)
[2019-01-10] MEDS: Acyclovir 500 MG in Sodium Chloride 0.9% 100 ML IV SCH ×2 (05:39→14:57)
[2019-01-10] MEDS ORDERED: Darbepoetin Alfa 60 mcg/ml Inj IVP ONE (08:00)
--- NOTE | 2019-01-10 08:09 | CP.PCM.PN ---
Subjective - Date & Time of Evaluation Date of Evaluation: 01/10/19 Time of Evaluation: 06:25 - Subjective Subjective: Lying in bed, lethargic but open eyes to verbal commands,follow simple verbal commands Reason for consultation and follow up: Cardiac evaluation of elevated troponin, acute kidney injury,ruled out myocardial ischemia, admitted with altered mental status Seen and examined by me and Dr. Calvert Objective - Vital Signs/Intake and Output Vital Signs (last 24 hours): Temp Pulse Resp BP Pulse Ox 98.2 F 74 19 160/85 H 96 01/10/19 06:00 01/10/19 06:00 01/10/19 06:00 01/10/19 06:00 01/09/19 06:00 Intake and Output: 01/10/19 01/10/19 06:59 18:59 Intake Total 1360 Output Total 900 Balance 460 - Medications Medications: Current Medications Aspirin (Ecotrin) 81 mg PO DAILY [facility] Last Admin: 01/09/19 10:07 Dose: 81 mg Calcium Acetate (Phoslo) 667 mg PO BID [facility] Last Admin: 01/09/19 18:33 Dose: 667 mg Clonidine HCl (Catapres) 0.1 mg PO Q4H PRN PRN Reason: hypertension Last Admin: 01/03/19 05:21 Dose: 0.1 mg Clonidine HCl (Catapres) 0.2 mg PO BID [facility] Last Admin: 01/09/19 18:28 Dose: Not Given Diltiazem HCl (Cardizem) 60 mg PO TID [facility] Last Admin: 01/09/19 18:32 Dose: 60 mg Hydralazine HCl (Apresoline) 50 mg PO BID [facility] Last Admin: 01/08/19 18:35 Dose: Not Given Acyclovir 500 mg/ Sodium (Chloride) 100 mls @ 100 mls/hr IV Q24H [facility]; Protocol Last Admin: 01/10/19 05:39 Dose: 100 mls/hr Acyclovir 500 mg/ Sodium (Chloride) 100 mls @ 100 mls/hr IV TuThSa@1300 [facility]; Protocol Last Admin: 01/08/19 13:44 Dose: 100 mls/hr Isosorbide Mononitrate (Imdur Er) 30 mg PO DAILY [facility] Last Admin: 01/09/19 10:31 Dose: Not Given Losartan Potassium (Cozaar) 100 mg PO DAILY [facility] Last Admin: 01/09/19 10:13 Dose: 100 mg Metoprolol Tartrate (Lopressor) 75 mg PO BID [facility] Last Admin: 01/09/19 18:33 Dose: 75 mg Midazolam HCl (Versed Inj) 2 mg IVP Q4 PRN PRN Reason: Agitation Pantoprazole Sodium (Protonix Ec Tab) 40 mg PO ACB [facility] Last Admin: 01/09/19 09:00 Dose: 40 mg Prednisone (Prednisone Tab) 10 mg PO QPM [facility] Last Admin: 01/09/19 18:32 Dose: 10 mg Prednisone (Prednisone Tab) 20 mg PO QAM [facility] Last Admin: 01/09/19 10:08 Dose: 20 mg - Labs Labs: 01/08/19 08:00 01/08/19 08:00 - Constitutional Appears: Non-toxic, No Acute Distress - Head Exam Head Exam: NORMAL INSPECTION, NORMOCEPHALIC - Eye Exam Eye Exam: Normal appearance Pupil Exam: NORMAL ACCOMODATION - ENT Exam ENT Exam: Mucous Membranes Moist, Normal Exam - Respiratory Exam Respiratory Exam: Decreased Breath Sounds, Clear to Ausculation Bilateral, NORMAL BREATHING PATTERN - Cardiovascular Exam Cardiovascular Exam: REGULAR RHYTHM, +S1, +S2 Additional comments: right chest permacath - GI/Abdominal Exam GI & Abdominal Exam: Soft, Normal Bowel Sounds - Neurological Exam Additional comments: lethargic - Skin Skin Exam: Dry, Normal Color, Warm Assessment and Plan - Assessment and Plan (Free Text) Assessment: A 68 year old female who was admitted to the ER due to altered mental status and acute renal injury. 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 Positive troponin on admission secondary to renal insufficiency/injury. Echo done on 11/08/18 showed LVEF 56%, moderate MR, mild TR. Neuro on consult. Renal on consult. on EEG monitor. Lethargic but able to follow simple commands. Brain MRI showed herpes enchephalitis. ID on consult. Continue IV antibiotics. Plan: No distress, lethargic,but able to open eyes and follow simple commands On hemodialysis On EEG monitor Heart rate stable Blood pressure stable Cardiac status stable On ASA 81 mg daily, Catapres 0.2 mg TID, Cardizem 60 mg TID Hydralazine 50 mg BID, Imdur ER 30 mg daily, Cozaar 100 mg daily, Lopressor 75 mg BID, Prednisone 10 mg every PM and 20 mg every AM Continue IV antibiotics per ID Neuro and Renal on consult Continue current treatment Continue current medications Will follow up Plan and treatment discussed with Dr. Calvert
--- NOTE | 2019-01-10 08:14 | PCM.VEEG ---
Video EEG - Procedure Start Date: 01/09/19 Start Time: 16:05 End Date: 01/10/19 End Time: 07:25 Technical Summary: DATA ACQUISITION: This was a multichannel inpatient video-EEG, a minimum of 22 channels were uti lized, performed in accordance with recommendations specified by the [place] [employer] (Meaghan Andrade et al. ACNS Guideline 1: Minimum Technical Requirements for Performing Clinical Electroencephalography. Journal of Clinical Neurophysiology 2016;33:303-7). The 10-20 electrode placement system was utilized in accordance with guidelines detailed by the International Federation of Clinical Neurophysiology (Tiesha Severino et al. The Ten-Twenty Electrode System of the International Federation. Recommendations for the Practice of Clinical Neurophysiology: Guidelines of the International Federation of Clinical Physiology 1999; EEG Suppl. 52.). DATA REVIEW / SPIKE DETECTION / DIGITAL ANALYSIS: The entire EEG was scanned and reviewed. Synchronized audio and video recording were reviewed at the time of each alarm and whenever an abnormality or suspicious activity was noted. The entire recording was analyzed utilizing an automated digital spike and seizure analysis program and all automatic spike and seizure detections were manually reviewed. A compressed spectral array was displayed and reviewed alongside the raw EEG tracings. In addition, further analysis of the EEG was performed when abnormalities were identified, including montage changes, dipole source localization, and frequency band identification. Video portion of the study is necessary to correlate abnormal EEG activity with clinical behavior. This study was attended 24 hours per day. - Interpretation Description of the study: Indication; status epilepticus EEG Finding during wakefulness: During active states, the EEG was characterized by 10-15 Hz, 15-30 uV activity bilaterally in fronto-central regions, Resting wakefulness was characterized by an attenuated and asymmetric posterior dominant rhythm of 6 to 7 Hz, 30-50 uV, mostly evident on the right, which was reactive to eye opening and closing. Drowsiness was associated with slow roving eye movements, slowing and fragmentation of the posterior dominant rhythm, and bilateral 4-7 Hz, 40-70 uV theta activity, sometimes with a shifting predominance. EEG Finding during sleep: Light sleep was recorded and was characterized by fronto-central slowing at 5-7 H, 50-125 uV, sharp central vertex waves, bilateral sleep spindles, and K- complexes; shifting asymmetries were evident, but typical sleep architecture was more evident on the left. Deeper stages of sleep were recorded and were characterized an increasing frequency of 1-4 Hz, 50-100 uV delta activity. Interictal non-epileptiform abnormalities: there was continuous left temporal slowing at 4 to 5 Hz seen. Interictal epileptiform abnormalities: There was also evidence of rare sharp waves and spikes in the right temporal area, max at T4, occurring in isolation. They were occasional sharp waves seen on the left anterior temporal region F7. Ictal epileptiform abnormalities: No seizures No PB activations - Impression Impression: 1- Mild background slowing. . 2- Interictal epileptiform discharges seen in both temporal regions right (mid temporal ) and left (anterior temporal). 3- Left temporal intermittent slowing No seizures seen, not in status epilepticus. 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 In this particular case, since patient seems to have an acute encephalitis, the interictal discharges predispose her to have clinical seizures. Findings are also in keeping with a focal cortical abnormality involving the left temporal region. Lastly the findings are in keeping with a mild non specific diffuse disturbance of cortical activity, in keeping with a diffuse montoya matter dysfunction. Study is similar to the the video EEG performed on 01/07.
--- NOTE | 2019-01-10 10:06 | PN ---
DATE: 01/08/2019 SUBJECTIVE: The patient was on dialysis this morning, and that was with her , Guerrero at the bedside, in room 362, bed 2. Case was discussed earlier with infectious disease admissions consultant. There is rising concern about the patient's continued lethargy. She is adequately treated for her viral encephalitis and is on high dose Keppra for seizures with input from Neurology. Later this morning, I spoke with Dr. Adams, consulting neurologist/ epileptologist regarding my concerns with Keppra and possible change to other medications. We will continue to follow her guidance. I spoke with the patient's again at length reviewing the situation. We will continue to follow closely. Simon Webb MD MTDD
[2019-01-10] MEDS: Pantoprazole 40 mg EC Tab PO SCH (10:12)
--- NOTE | 2019-01-10 12:47 | PN ---
DATE: 01/09/2019 SUBJECTIVE: The patient was seen this Saturday morning in room 362, bed 2 with her Guerrero at the bedside. She remains lethargic and obtunded. She is arousable with talk and light touch. She answers simple questions, recognizes me, knows me by name, but then drifts off to sleep. By no means, alert or clear for the remainder of the visit. I spoke with her at length who has become increasingly concerned about her continued lethargy. He spoke with the neurologist and he is raising concern about her medications and asking about possible transfer to a tertiary referral center such as [facility] or [facility]. He agreed to Neurology's second opinion. I will ask Dr. Herndon to consult, reach out to Dr. Adams once again regarding the patient's medications. I also spoke with Dr. French who will see the patient and talk with her later about possible transfer to [facility] as she is on staff there and there can be some continuity of care at least from the renal perspective in dialysis with demonstrating on board. The patient will be scheduled for dialysis tomorrow. She is scheduled to undergo another EEG today and I will talk with Neurology, Dr. Ornelas if not later today certainly tomorrow, Saturday morning. Later this afternoon case discussed with Neurology second opinion Dr. Lana Herndon. I later revewed all conversations with patient's boyfriend//spouse-equivalent, Guerrero. He was more at ease and reassured after his multiple conversations through the course of the day. Plans for transfer will be on hold for now. Simon Webb MD JELANI
[2019-01-10] MEDS ORDERED: levETIRAcetam 1000mg/100ml NS 100 ML IV ONE (15:06)
--- NOTE | 2019-01-10 17:38 | PN ---
DATE: 01/10/2019 SUBJECTIVE: The patient was seen this Saturday morning in room 262, bed 2 with her Guerrero at the bedside. The IV Keppra has been discontinued. She is on a 24-hour video EEG monitor right now and is scheduled for dialysis later today. PHYSICAL EXAMINATION: GENERAL: She appears to be sleeping, is arousable to light touch and voice. She answers questions appropriately, opened her eyes a small amount, recognizes me, knows my name, where she is, etc., but then closes her eyes and tells me that she is tired and wants to rest. After talking to her a few minutes, I repeated this similar encounter with her, and again, her mental status performance is the same and then closes her eyes again saying she is tired. IMPRESSION: 1. Viral encephalitis. 2. Seizure. 3. Lethargy, perhaps secondary to encephalitis versus medications. PLAN: We will continue close monitoring, continue telemetry for now. Hopefully, the patient will wake up more in the next day or two. I see that her p.o. dose of was tried yesterday to help with her excessive sleepiness, but reports it was of little to no benefit. We will continue to follow. Simon Webb MD
[2019-01-10 17:40] LABS: HEMOGLOBIN 9.8 g/dL (12.0-16.0); MEAN CELL VOLUME 96.7 fl (80.0-105.0); MEAN CORPUSCULAR HEMOGLOBIN 31.9 pg (25.0-35.0); MEAN PLATELET VOLUME 11.6 fl (7.0-11.0); RBC 3.07 10^6/uL (3.5-6.1); RED CELL DISTRIBUTION WIDTH 18.9 % (11.5-14.5); WHITE BLOOD COUNT 4.6 10^3/uL (4.5-11.0)
[2019-01-10 17:53] LABS: ALB/GLOB RATIO 1.2 (1.1-1.8); CALCIUM 8.4 mg/dL (8.4-10.5)
[2019-01-10] MEDS ORDERED: NS 0.9% IVPB ONE (19:00)
[2019-01-10] MEDS ORDERED: LEVETIRACETAM IVPB ONE (19:00)
--- NOTE | 2019-01-10 19:09 | CP.PCM.PN ---
Subjective - Date & Time of Evaluation Date of Evaluation: 01/10/19 Time of Evaluation: 13:00 - Subjective Subjective: Patient continues to be lethargic, but arouseable, and responding to questions, naming and repeating well. However, she quickly falls back to sleep, and is not hallucinating but definitely encephalopathic. ROS; not obtainable due to patients level of consciousness. ON exam: Lethargic but arouseable. PERRL. EOMI. no facial droop. Names and repeats. no nystagmus. 5/5 ul and ll bl. Toes downgoing. NO clonus. Sensory exam is not accurate, but patient does not admit to any sensory deficits. Objective - Vital Signs/Intake and Output Vital Signs (last 24 hours): Temp Pulse Resp BP Pulse Ox 98.8 F 80 20 140/71 96 01/10/19 12:00 01/10/19 14:56 01/10/19 12:00 01/10/19 12:00 01/09/19 06:00 - Medications Medications: Current Medications Aspirin (Ecotrin) 81 mg PO DAILY [facility] Last Admin: 01/10/19 09:57 Dose: 81 mg Calcium Acetate (Phoslo) 667 mg PO BID [facility] Last Admin: 01/10/19 09:57 Dose: 667 mg Clonidine HCl (Catapres) 0.1 mg PO Q4H PRN PRN Reason: hypertension Last Admin: 01/03/19 05:21 Dose: 0.1 mg Clonidine HCl (Catapres) 0.2 mg PO BID [facility] Last Admin: 01/10/19 10:19 Dose: 0.2 mg Diltiazem HCl (Cardizem) 60 mg PO TID [facility] Last Admin: 01/10/19 14:56 Dose: 60 mg Hydralazine HCl (Apresoline) 50 mg PO BID [facility] Last Admin: 01/08/19 18:35 Dose: Not Given Acyclovir 500 mg/ Sodium (Chloride) 100 mls @ 100 mls/hr IV TuThSa@1300 [facility]; Protocol Last Admin: 01/10/19 14:57 Dose: 100 mls/hr Levetiracetam 750 mg/ Sodium (Chloride) 107.5 mls @ 215 mls/hr IVPB ONCE ONE Stop: 01/10/19 19:29 Levetiracetam (Keppra 500mg Ivpb) 500 mg in 100 mls @ 400 mls/hr IVPB BID [facility] Acyclovir 500 mg/ Sodium (Chloride) 100 mls @ 100 mls/hr IV ONCE ONE; Protocol Stop: 01/10/19 20:59 Acyclovir 500 mg/ Sodium (Chloride) 100 mls @ 100 mls/hr IV 0600 [facility]; Protocol Isosorbide Mononitrate (Imdur Er) 30 mg PO DAILY [facility] Last Admin: 01/10/19 10:12 Dose: 30 mg Losartan Potassium (Cozaar) 100 mg PO DAILY [facility] Last Admin: 01/10/19 10:19 Dose: 100 mg Metoprolol Tartrate (Lopressor) 75 mg PO BID [facility] Last Admin: 01/10/19 10:12 Dose: 75 mg Midazolam HCl (Versed Inj) 2 mg IVP Q4 PRN PRN Reason: Agitation Pantoprazole Sodium (Protonix Ec Tab) 40 mg PO ACB [facility] Last Admin: 01/10/19 10:12 Dose: 40 mg Prednisone (Prednisone Tab) 10 mg PO QPM [facility] Last Admin: 01/09/19 18:32 Dose: 10 mg Prednisone (Prednisone Tab) 20 mg PO QAM [facility] Last Admin: 01/10/19 10:12 Dose: 20 mg - Labs Labs: 01/10/19 17:00 01/10/19 17:00 Assessment and Plan - Assessment and Plan (Free Text) Assessment: EEG: per my review, bilateral temporal sharps. but has slow posterior dominant rhythm. Dr. Marcus to dictate full report. A/P: 68 yr old woman with encephalitis, herpes most likely, continuing to have interictal sharp waves, that are indicative of predisposition for epilepsy. Plan: 1. Continue acyclovir 2. Check Keppra level: keppra dosage shoudl be adequate as patient is continuing to have interictal sharp waves that could be progressing to seizures. 3. COntinue on 1500 of keppra today. Can decrease to 500 mg IV keppra in am and add depakote 500 mg bid. 4. Physical therapy 5. MRI Brain repeat on Saturday. Thank you Results discussed with Dr. Winn. DR. Adams
[2019-01-10] MEDS ORDERED: Acyclovir 500 MG in Sodium Chloride 0.9% 100 ML IV ONE (20:00)
--- NOTE | 2019-01-10 22:07 | PN ---
DATE: 01/10/2019 SUBJECTIVE: The patient is in bed, seen early this morning. She is awake. She is responsive. She is communicating. No fevers and no headaches. OBJECTIVE: VITAL SIGNS: Temperature is 98, blood pressure is 140/70, respiratory rate of 20. HEENT: Unremarkable. NECK: Supple. LUNGS: Have decreased breath sounds. HEART: Normal S1, S2. ABDOMEN: Soft, nontender. LABORATORY EXAMINATION: Reveals the patient has white count of 2.5, hemoglobin of 9 and creatinine is 3.7. Urinalysis is noted. Review of orders reveals the patient is on acyclovir once daily and once after each dialysis. ASSESSMENT AND PLAN: This is a 68-year-old with Daphnie's vasculitis; end-stage renal disease, on hemodialysis on Tuesdays, and Saturdays; breast cancer; and hypertension, who was admitted with herpes encephalitis, herpes type 2 and sepsis with polyangiitis granulomatosis with and today is day #13 of 21 days of on acyclovir. We will follow with you. Ramana Haywood MD
[2019-01-11] MEDS: Acyclovir 500 MG in Sodium Chloride 0.9% 100 ML IV SCH (06:03)
--- NOTE | 2019-01-11 07:37 | CP.PCM.PN ---
Subjective - Date & Time of Evaluation Date of Evaluation: 01/11/19 Time of Evaluation: 06:35 - Subjective Subjective: Lying in bed, lethargic, no distress Reason for consultation and follow up: Cardiac evaluation of elevated troponin, acute kidney injury,ruled out myocardial ischemia, admitted with altered mental status Seen and examined by me and Dr. Calvert Objective - Vital Signs/Intake and Output Vital Signs (last 24 hours): Temp Pulse Resp BP Pulse Ox 98.3 F 81 19 123/74 98 01/11/19 06:00 01/11/19 06:00 01/11/19 06:00 01/11/19 00:01 01/11/19 06:00 Intake and Output: 01/11/19 01/11/19 06:59 18:59 Intake Total 200 Output Total 0 Balance 200 - Medications Medications: Current Medications Aspirin (Ecotrin) 81 mg PO DAILY [facility] Last Admin: 01/10/19 09:57 Dose: 81 mg Calcium Acetate (Phoslo) 667 mg PO BID [facility] Last Admin: 01/10/19 21:42 Dose: 667 mg Clonidine HCl (Catapres) 0.1 mg PO Q4H PRN PRN Reason: hypertension Last Admin: 01/03/19 05:21 Dose: 0.1 mg Clonidine HCl (Catapres) 0.2 mg PO BID [facility] Last Admin: 01/10/19 21:41 Dose: 0.2 mg Diltiazem HCl (Cardizem) 60 mg PO TID [facility] Last Admin: 01/10/19 21:40 Dose: 60 mg Hydralazine HCl (Apresoline) 50 mg PO BID [facility] Last Admin: 01/08/19 18:35 Dose: Not Given Acyclovir 500 mg/ Sodium (Chloride) 100 mls @ 100 mls/hr IV TuThSa@1300 [facility]; Protocol Last Admin: 01/10/19 14:57 Dose: 100 mls/hr Levetiracetam (Keppra 500mg Ivpb) 500 mg in 100 mls @ 400 mls/hr IVPB BID [facility] Acyclovir 500 mg/ Sodium (Chloride) 100 mls @ 100 mls/hr IV 0600 [facility]; Protocol Last Admin: 01/11/19 06:03 Dose: 100 mls/hr Isosorbide Mononitrate (Imdur Er) 30 mg PO DAILY [facility] Last Admin: 01/10/19 10:12 Dose: 30 mg Losartan Potassium (Cozaar) 100 mg PO DAILY [facility] Last Admin: 01/10/19 10:19 Dose: 100 mg Metoprolol Tartrate (Lopressor) 75 mg PO BID [facility] Last Admin: 01/10/19 21:38 Dose: 75 mg Midazolam HCl (Versed Inj) 2 mg IVP Q4 PRN PRN Reason: Agitation Pantoprazole Sodium (Protonix Ec Tab) 40 mg PO ACB [facility] Last Admin: 01/10/19 10:12 Dose: 40 mg Prednisone (Prednisone Tab) 10 mg PO QPM [facility] Last Admin: 01/10/19 21:40 Dose: 10 mg Prednisone (Prednisone Tab) 20 mg PO QAM [facility] Last Admin: 01/10/19 10:12 Dose: 20 mg - Labs Labs: 01/10/19 17:00 01/10/19 17:00 - Constitutional Appears: Non-toxic, No Acute Distress - Head Exam Head Exam: NORMAL INSPECTION, NORMOCEPHALIC - Eye Exam Eye Exam: Normal appearance Pupil Exam: NORMAL ACCOMODATION - ENT Exam ENT Exam: Mucous Membranes Moist, Normal Exam - Respiratory Exam Respiratory Exam: Decreased Breath Sounds, Clear to Ausculation Bilateral, NORMAL BREATHING PATTERN - Cardiovascular Exam Cardiovascular Exam: REGULAR RHYTHM, +S1, +S2 Additional comments: right chest permacath - GI/Abdominal Exam GI & Abdominal Exam: Soft, Normal Bowel Sounds - Exam Additional comments: on hemodialysis 3 x a week (TTS) - Neurological Exam Additional comments: lethargic but open eyes to verbal commands - Skin Skin Exam: Dry, Normal Color, Warm Assessment and Plan - Assessment and Plan (Free Text) Assessment: A 68 year old female who was admitted to the ER due to altered mental status and acute renal injury. 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 Positive troponin on admission secondary to renal insufficiency/injury. Echo done on 11/08/18 showed LVEF 56%, moderate MR, mild TR. Neuro on consult. Renal on consult. Brain MRI showed herpes enchephalitis. ID on consult. Continue IV antibiotics. On hemodialysis 3 x a week (TTS). Had hemodialysis yesterday, pulled 1 liter fluid for 3 hours. Lethargic but arousable, responds appropriately. Cardiac status stable. Will discontinue telemetry. Plan: No distress, lethargic but arousable Had hemodialysis yesterday pulled 1 liter of fluid (TTS) Off EEG monitor Heart rate stable Blood pressure stable Cardiac status stable Will discontinue telemetry On ASA 81 mg daily, Catapres 0.2 mg TID, Cardizem 60 mg TID Hydralazine 50 mg BID, Imdur ER 30 mg daily, Cozaar 100 mg daily, Lopressor 75 mg BID, Prednisone 10 mg every PM and 20 mg every AM Continue IV antibiotics per ID Neuro and Renal on consult Continue current treatment Continue current medications Will follow up Plan and treatment discussed with Dr. Calvert
[2019-01-11] MEDS: Pantoprazole 40 mg EC Tab PO SCH (10:15)
[2019-01-11] MEDS ORDERED: levETIRAcetam 500mg IVPB 500 MG/100 ML BAG IVPB STA (10:41)
--- NOTE | 2019-01-11 11:52 | PN ---
DATE: 01/11/2019 SUBJECTIVE: The patient is in bed, in no acute distress, nontoxic. OBJECTIVE: VITAL SIGNS: On exam, temperature is 98, blood pressure is 120/70, respiratory rate of 18. HEENT: Unremarkable. NECK: Supple. LUNGS: Have decreased breath sounds. HEART: Normal S1 and S2. ABDOMEN: Soft. LABORATORY EXAMINATION: Reveals a white count of 4.6, hemoglobin of 9. Chemistries, BUN of 91, creatinine of 4.2. Urinalysis is noted and immunology is noted. Serology is noted. REVIEW OF ORDERS: The patient is on acyclovir once a day, but in addition to once a day, the patient was on acyclovir after each dialysis, and note from yesterday is reviewed.. ASSESSMENT AND PLAN: She is a 68-year-old with Daphnie's vasculitis on immunosuppressive medications, end-stage renal disease on hemodialysis Tuesdays and and Saturdays, breast cancer, hypertension, admitted with herpes encephalitis and herpes type 2 with sepsis and granulomatous polyangiitis, today is day #14 of 21 days of acyclovir. She does have periods of lethargy, most likely Keppra induced. We will follow with you. Review of the orders confirms acyclovir to be active. The patient is on IV Keppra lower dose also on prednisone by Dr. French. Ramana Haywood MD
--- NOTE | 2019-01-11 13:46 | PN ---
DATE: 01/11/2019 SUBJECTIVE: The patient is seen lying in bed. is at bedside. She is arousable, she is more alert today. She denies any pain. She denies any shortness of breath. OBJECTIVE: GENERAL: Elderly lady lying in bed. VITAL SIGNS: Blood pressure 123/74, heart rate 68, respiratory rate 20, temperature 98.2. HEENT: Normocephalic, atraumatic, positive pallor. NECK: Supple, no JVD. LUNGS: Bilateral equal entry, bilateral equal expansion. CARDIAC: S1 and S2, regular rate and rhythm, no murmur, no rub. ABDOMEN: Soft, nondistended, nontender, bowel sounds present. EXTREMITIES: No lower extremity edema. LABORATORY DATA: WBC 4.6, hemoglobin 9.8, hematocrit 29.7, platelets 188. Sodium 132, potassium 4.5, chloride 98, CO2 of 26, BUN 91, creatinine 4.2, glucose 123, calcium 8.4, phosphorus 4.4, magnesium 1.9, albumin 3.0. CURRENT MEDICATIONS: Acyclovir 500 mg IV daily, an additional dose post dialysis, Apresoline 50 b.i.d., Cardizem 60 t.i.d., Catapres 0.1 every 4 hours p.r.n., Catapres 0.2 b.i.d., losartan 100 daily, aspirin 81, isosorbide 30, Keppra 500, Lopressor 75 b.i.d., PhosLo 1 t.i.d. with meals, prednisone 10 in p.m. 20 in a.m., Protonix, Versed. ASSESSMENT: 1. 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 2. Status post seizures. 3. Hypertension. 4. Recurrent , currently remains dialysis dependent. 5. Anemia of chronic disease. 6. Hyperphosphatemia. PLAN: 1. Continue acyclovir as per ID recommendations. 2. Continue Keppra. 3. Continue current antihypertensives, slowly taper off clonidine. 4. Dialysis on Saturday, and Saturday. 5. Physical therapy, out of bed to chair. Monserrat French MD
[2019-01-11 15:00] LABS: MEAN CELL VOLUME 99.6 fl (80.0-105.0); MEAN CORPUSCULAR HGB CONC 32.2 g/dl (31.0-37.0); MEAN PLATELET VOLUME 10.9 fl (7.0-11.0); RBC 2.31 10^6/uL (3.5-6.1); RED CELL DISTRIBUTION WIDTH 19.1 % (11.5-14.5); WHITE BLOOD COUNT 4.4 10^3/uL (4.5-11.0)
[2019-01-11 15:18] LABS: HEMOGLOBIN 7.4 g/dL (12.0-16.0)
[2019-01-11] MEDS: levETIRAcetam 500mg IVPB 500 MG/100 ML BAG IVPB SCH (17:32)
[2019-01-11] MEDS ORDERED: levETIRAcetam 500mg IVPB 500 MG/100 ML BAG IVPB SCH (18:00)
--- NOTE | 2019-01-11 19:56 | PN ---
DATE: 01/11/2019 DAILY PROGRESS NOTE SUBJECTIVE: The patient was seen this Saturday morning in room 262, bed 2 with Guerrero at bedside. I am pleased to see that she is improved clinically in the sense that she was more awake with light touch and voice. She opened her eyes fully and kept them open for as long as 2 minutes in conversation. As yesterday, she answered appropriately, was less sedated, lethargic, and groggy. conversations understood and answered appropriately and then went off to sleep, but was more easily arousable again minutes later. Medications were reviewed and see that her dose of Keppra has been decreased. Prednisone is being tapered currently at 30 mg during the course of the day. Clonidine has been tapered as well. IV acyclovir continues. PHYSICAL EXAMINATION: NEUROLOGIC: Other than mental status improvements as noted above. Remainder of the exam remains unchanged. LUNGS: Show good aeration right and left. HEART: Regular, not tachycardic. ABDOMEN: Soft and nontender. EXTREMITIES: Thin. No edema. No calf tenderness. No swelling. IMPRESSION: 1. Viral encephalitis. 2. Seizures secondary to #1 above. 3. Lethargy, excessive sleepiness due to encephalitis versus seizure versus medications. 4. Renal failure. 5. Daphnie's granulomatosis. 6. Hypertension. PLAN: We will continue our current course. Follow with ID, Renal, and Neuro. Simon Webb MD
--- NOTE | 2019-01-12 05:57 | CP.PCM.PN ---
Subjective - Date & Time of Evaluation Date of Evaluation: 01/12/19 Time of Evaluation: 06:25 - Subjective Subjective: Lying in bed, lethargic but respond to verbal commands, no distress Reason for consultation and follow up: Cardiac evaluation of elevated troponin, acute kidney injury,ruled out myocardial ischemia, admitted with altered mental status Seen and examined by me and Dr. Calvert Objective - Vital Signs/Intake and Output Vital Signs (last 24 hours): Temp Pulse Resp BP Pulse Ox 97.9 F 76 16 109/64 96 01/11/19 19:00 01/11/19 19:00 01/11/19 19:00 01/11/19 19:00 01/11/19 19:00 Intake and Output: 01/11/19 01/12/19 18:59 06:59 Intake Total 0 Balance 0 - Medications Medications: Current Medications Aspirin (Ecotrin) 81 mg PO DAILY [facility] Last Admin: 01/11/19 10:14 Dose: 81 mg Clonidine HCl (Catapres) 0.1 mg PO Q4H PRN PRN Reason: hypertension Last Admin: 01/03/19 05:21 Dose: 0.1 mg Clonidine HCl (Catapres) 0.2 mg PO BID [facility] Last Admin: 01/11/19 17:24 Dose: 0.2 mg Diltiazem HCl (Cardizem) 60 mg PO TID [facility] Last Admin: 01/11/19 17:26 Dose: 60 mg Hydralazine HCl (Apresoline) 50 mg PO BID [facility] Last Admin: 01/08/19 18:35 Dose: Not Given Acyclovir 500 mg/ Sodium (Chloride) 100 mls @ 100 mls/hr IV TuThSa@1300 [facility]; Protocol Last Admin: 01/10/19 14:57 Dose: 100 mls/hr Acyclovir 500 mg/ Sodium (Chloride) 100 mls @ 100 mls/hr IV 0600 [facility]; Protocol Last Admin: 01/11/19 06:03 Dose: 100 mls/hr Levetiracetam (Keppra 500mg Ivpb) 500 mg in 100 mls @ 400 mls/hr IVPB BID [facility] Last Admin: 01/11/19 17:32 Dose: 400 mls/hr Isosorbide Mononitrate (Imdur Er) 30 mg PO DAILY [facility] Last Admin: 01/11/19 10:14 Dose: 30 mg Losartan Potassium (Cozaar) 100 mg PO DAILY [facility] Last Admin: 01/11/19 10:33 Dose: 100 mg Metoprolol Tartrate (Lopressor) 75 mg PO BID [facility] Last Admin: 01/11/19 17:23 Dose: 75 mg Midazolam HCl (Versed Inj) 2 mg IVP Q4 PRN PRN Reason: Agitation Pantoprazole Sodium (Protonix Ec Tab) 40 mg PO ACB [facility] Last Admin: 01/11/19 10:15 Dose: 40 mg Prednisone (Prednisone Tab) 10 mg PO QPM [facility] Last Admin: 01/11/19 17:24 Dose: 10 mg Prednisone (Prednisone Tab) 20 mg PO QAM [facility] Last Admin: 01/11/19 10:15 Dose: 20 mg - Labs Labs: 01/11/19 14:45 01/10/19 17:00 - Constitutional Appears: Non-toxic, No Acute Distress - Head Exam Head Exam: NORMAL INSPECTION, NORMOCEPHALIC - Eye Exam Eye Exam: Normal appearance Pupil Exam: NORMAL ACCOMODATION - ENT Exam ENT Exam: Mucous Membranes Moist, Normal Exam - Respiratory Exam Respiratory Exam: Decreased Breath Sounds, Clear to Ausculation Bilateral, NORMAL BREATHING PATTERN - Cardiovascular Exam Cardiovascular Exam: +S1, +S2 Additional comments: right chest permacath - GI/Abdominal Exam GI & Abdominal Exam: Soft, Normal Bowel Sounds - Extremities Exam Extremities Exam: Normal Capillary Refill - Neurological Exam Additional comments: lethargic but arousable - Skin Skin Exam: Dry, Normal Color, Warm Assessment and Plan - Assessment and Plan (Free Text) Assessment: A 68 year old female who was admitted to the ER due to altered mental status and acute renal injury. 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 Positive troponin on admission secondary to renal insufficiency/injury. Echo done on 11/08/18 showed LVEF 56%, moderate MR, mild TR. Neuro on consult. Renal on consult. Brain MRI showed herpes encheph alitis. ID on consult. Continue IV antibiotics. On hemodialysis 3 x a week (TTS). For hemodialysis Saturday. Lethargic but arousable, responds appropriately. Cardiac status stable. Seizure precaution. Plan: No distress, lethargic but arousable On hemodialysis Heart rate stable Blood pressure stable Cardiac status stable On ASA 81 mg daily, Catapres 0.2 mg TID, Cardizem 60 mg TID Hydralazine 50 mg BID, Imdur ER 30 mg daily, Cozaar 100 mg daily, Lopressor 75 mg BID, Prednisone 10 mg every PM and 20 mg every AM Continue IV antibiotics per ID Neuro and Renal on consult Continue current treatment Continue current medications Seizure precaution Will follow up Plan and treatment discussed with Dr. Calvert
[2019-01-12] MEDS: Acyclovir 500 MG in Sodium Chloride 0.9% 100 ML IV SCH (06:08)
[2019-01-12] MEDS: Pantoprazole 40 mg EC Tab PO SCH (09:07)
[2019-01-12] MEDS: levETIRAcetam 500mg IVPB 500 MG/100 ML BAG IVPB SCH ×2 (09:25→20:15)
--- NOTE | 2019-01-12 18:24 | PN ---
DATE: 01/12/2019 SUBJECTIVE: The patient is seen sitting up in bed. is trying to feed her. She is arousable, but is awake for 30 seconds and then falls back asleep ?. PHYSICAL EXAMINATION: GENERAL: Elderly lady lying in bed. VITAL SIGNS: Blood pressure 178/81, heart rate 60, respiratory rate 20, and temperature 97.8. HEENT: Normocephalic, atraumatic, positive pallor. NECK: Supple, no JVD. LUNGS: Bilateral equal air entry, bilateral equal expansion, no rales. CARDIAC: S1 and S2, regular rate and rhythm, no murmur, no rub. ABDOMEN: Obese, distended, soft, nontender, bowel sounds present. EXTREMITIES: No lower extremity edema. Intake and output not charted. LABORATORY DATA: WBC 4.4, hemoglobin 7.4 ?, hematocrit 23, and platelets 133. CURRENT MEDICATIONS: Acyclovir 500 daily, 500 additional post each dialysis. Cardizem 60 t.i.d., Catapres 0.2 b.i.d., losartan 100, Ecotrin, Imdur 30, Keppra 500 b.i.d., Lopressor 75 b.i.d., prednisone 10 in p.m. and 20 in a.m., Protonix, and Versed. ASSESSMENT: 1. Herpetic encephalitis, altered mental status, lethargy. 2. Seizures. 3. 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 4. Severe hypertension. 5. Anemia. 6. Acute kidney injury, remains on dialysis. PLAN: 1. Dialysis again tomorrow. 2. Taper clonidine to 0.1 b.i.d. 3. Change prednisone to 10 b.i.d. 4. Continue Keppra. 5. Continue acyclovir. 6. Physical therapy. 7. Check labs predialysis tomorrow. Monserrat French MD
--- NOTE | 2019-01-12 22:51 | CP.PCM.PCO ---
Addendum Addendum: Dr Cardoso Code Stroke Note Called overhead by nursing, repeat MRI prelim reading showed suspicion for hemorrhagic stroke R side Spoke with Dr Orellana Neuro Hospitalist [employer] who recommended to hold Aspirin , PMD contacted agrees with plan Per Dr Orellana - no f/u imaging necessary, Pt had MRIs done today, no change in mental status from baseline, monitor BP, continue w/ neuro checks A: hemorrhagic stroke P: hold ASA, H&H stable, transfer to remote tele, monitor BP and neuro status, PMD and Neuro contacted and aware, no further imaging needed at this time 01/12/19 23:20 NIHSS Stroke Scale - Date/Time Evaluation Performed Date Performed: 01/12/19 Time Performed: 22:22 When Was NIHSS Performed: Baseline - How Severe is the Stoke Level of Consciousness: 1=Drowsy LOC to Questions: 0=Both comments correct LOC to commands: 0=Obeys both correctly Best Gaze: 0=Normal Visual: 0=No visual loss Facial: 0=Normal Motor Arm - Left: 0=No drift Motor Arm - Right: 0=No drift Motor Leg - Left: 0=No drift Motor Leg - Right: 0=No drift Limb Ataxia: 0=Absent Sensory: 0=Normal Best Language: 0=No aphasia Dysarthia: 0=Normal articulation Extinction & Inattention (Neglect): 0=Normal, no object Score: 1
[2019-01-12 23:09] LABS: BASO # 0.02 K/mm3 (0.0-2.0); BASO % 0.3 % (0.0-3.0); LYMPH # 0.8 (1.2-3.4); MEAN CELL VOLUME 96.8 fl (80.0-105.0); MEAN CORPUSCULAR HEMOGLOBIN 32.1 pg (25.0-35.0); MEAN CORPUSCULAR HGB CONC 33.2 g/dl (31.0-37.0); MEAN PLATELET VOLUME 10.6 fl (7.0-11.0); MONO # 0.2 (0.1-0.6); MONO % 2.6 % (1.0-6.0); PLATELET COUNT 147 10^3/uL (120.0-450.0); WHITE BLOOD COUNT 6.5 10^3/uL (4.5-11.0)
[2019-01-12 23:29] LABS: ALB/GLOB RATIO 1.2 (1.1-1.8); ALBUMIN 2.9 g/dL (3.0-4.8); CALCIUM 8.3 mg/dL (8.4-10.5)
[2019-01-12 23:59] LABS: BAND 2 % (0-2); NEUTROPHIL 80 % (50.0-70.0)
[2019-01-13] LABS: ANISOCYTOSIS 1+; HYPERSEGMENTED POLYS SLIGHT; HYPOCHROMIA SLIGHT; LYMPHOCYTE 4 % (22.0-35.0); MONOCYTE 9 % (1.0-6.0); MYELOCYTE 5 %; PLATELET ESTIMATE NORMAL (NORMAL)
--- NOTE | 2019-01-13 01:14 | PN ---
DATE: 01/12/2019 SUBJECTIVE: The patient is seen earlier today. She is able to wake up. She has periods of sleeping. The patient's fiance is at the bedside, who states that the patient sleeps more after she received the Keppra. Otherwise, she is more responsive and communicating. PHYSICAL EXAMINATION: VITAL SIGNS: Temperature of 98, blood pressure of 170/80, respiratory rate of 20, heart rate of 60. HEENT: Unremarkable. NECK: Supple. LUNGS: Decreased breath sounds. HEART: Normal S1 and S2. ABDOMEN: Soft, nontender. LABORATORY EXAMINATION: Reveals a white count of 4.4, hemoglobin of 7. BUN of 91, creatinine of 4.2. Microbiology is noted. MEDICATIONS: Review of orders reveals that the patient is on acyclovir once daily and again additional dose after dialysis. Acyclovir requires renewal do so. 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 Today is day #15 of 21 days of acyclovir. Continue the present course. The patient is scheduled for another MRI today. Ramana Haywood MD
[2019-01-13] MEDS: Acyclovir 500 MG in Sodium Chloride 0.9% 100 ML IV SCH ×2 (05:24→14:57)
--- NOTE | 2019-01-13 06:50 | CP.PCM.PN ---
Subjective - Date & Time of Evaluation Date of Evaluation: 01/13/19 Time of Evaluation: 06:35 - Subjective Subjective: Lying in bed, lethargic but arousable, no distress Reason for consultation and follow up: Cardiac evaluation of elevated troponin, acute kidney injury,ruled out myocardial ischemia, admitted with altered mental status Seen and examined by me and Dr. Calvert Objective - Vital Signs/Intake and Output Vital Signs (last 24 hours): Temp Pulse Resp BP Pulse Ox 97.8 F 55 L 20 172/81 H 98 01/13/19 00:01 01/13/19 06:00 01/13/19 00:01 01/13/19 05:51 01/13/19 00:01 Intake and Output: 01/12/19 01/13/19 18:59 06:59 Intake Total 100 960 Output Total 700 Balance 100 260 - Medications Medications: Current Medications Clonidine HCl (Catapres) 0.1 mg PO Q4H PRN PRN Reason: hypertension Last Admin: 01/13/19 05:51 Dose: 0.1 mg Clonidine HCl (Catapres) 0.1 mg PO BID [facility] Last Admin: 01/12/19 20:15 Dose: 0.1 mg Diltiazem HCl (Cardizem) 60 mg PO TID [facility] Last Admin: 01/12/19 20:14 Dose: 60 mg Hydralazine HCl (Apresoline) 50 mg PO BID [facility] Last Admin: 01/08/19 18:35 Dose: Not Given Acyclovir 500 mg/ Sodium (Chloride) 100 mls @ 100 mls/hr IV TuThSa@1300 [facility]; Protocol Last Admin: 01/10/19 14:57 Dose: 100 mls/hr Acyclovir 500 mg/ Sodium (Chloride) 100 mls @ 100 mls/hr IV 0600 [facility]; Protocol Last Admin: 01/13/19 05:24 Dose: 100 mls/hr Levetiracetam (Keppra 500mg Ivpb) 500 mg in 100 mls @ 400 mls/hr IVPB BID [facility] Last Admin: 01/12/19 20:15 Dose: 400 mls/hr Isosorbide Mononitrate (Imdur Er) 30 mg PO DAILY [facility] Last Admin: 01/12/19 09:22 Dose: 30 mg Losartan Potassium (Cozaar) 100 mg PO DAILY [facility] Last Admin: 01/12/19 09:22 Dose: 100 mg Metoprolol Tartrate (Lopressor) 75 mg PO BID [facility] Last Admin: 01/12/19 20:14 Dose: 75 mg Midazolam HCl (Versed Inj) 2 mg IVP Q4 PRN PRN Reason: Agitation Pantoprazole Sodium (Protonix Ec Tab) 40 mg PO ACB [facility] Last Admin: 01/12/19 09:07 Dose: 40 mg Prednisone (Prednisone Tab) 10 mg PO BID [facility] Last Admin: 01/12/19 20:13 Dose: 10 mg - Labs Labs: 01/12/19 23:06 01/12/19 23:06 - Constitutional Appears: Non-toxic, No Acute Distress - Head Exam Head Exam: NORMAL INSPECTION, NORMOCEPHALIC - Eye Exam Eye Exam: Normal appearance Pupil Exam: NORMAL ACCOMODATION - ENT Exam ENT Exam: Mucous Membranes Moist, Normal Exam - Respiratory Exam Respiratory Exam: Decreased Breath Sounds, Clear to Ausculation Bilateral, NORMAL BREATHING PATTERN - Cardiovascular Exam Cardiovascular Exam: Bradycardia, +S1, +S2 - GI/Abdominal Exam GI & Abdominal Exam: Soft, Normal Bowel Sounds - Neurological Exam Additional comments: lethargic but arousable - Skin Skin Exam: Dry, Normal Color, Warm Assessment and Plan - Assessment and Plan (Free Text) Assessment: A 68 year old female who was admitted to the ER due to altered mental status and acute renal injury. 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 Positive troponin on admission secondary to renal insufficiency/injury. Echo done on 11/08/18 showed LVEF 56%, moderate MR, mild TR. Neuro on consult. Renal on consult. Brain MRI showed herpes enchephalitis. ID on consult. Continue IV antibiotics. On hemodialysis 3 x a week (TTS). For hemodialysis Saturday. Lethargic but arousable, responds appropriately. Cardiac status stable. Seizure precaution. MRI one yesterday and preliminary report showed suspicion of hemmorhagic stroke right side. Held Aspirin. Plan: Held Aspirin due to suspicious hemmorhagic stroke right side post MRI No distress, lethargic but arousable For hemodialysis today Heart rate stable Blood pressure stable Cardiac status stable On ASA 81 mg daily, Catapres 0.2 mg TID, Cardizem 60 mg TID Hydralazine 50 mg BID, Imdur ER 30 mg daily, Cozaar 100 mg daily, Lopressor 75 mg BID, Prednisone 10 mg every PM and 20 mg every AM Continue IV antibiotics per ID Neuro and Renal on consult Continue current treatment Continue current medications Seizure precaution Will follow up Plan and treatment discussed with Dr. Calvert
--- NOTE | 2019-01-13 08:38 | MRI ---
Date of service: 01/12/2019 PROCEDURE: MRI BRAIN WITHOUT CONTRAST HISTORY: eval herpetic enchephalitis, seizures COMPARISON: 01/05/2019 MRI TECHNIQUE: Multiplanar, multisequence MR images of the brain were obtained without intravenous contrast enhancement. FINDINGS: HEMORRHAGE: None DWI: There is restricted diffusion as well as abnormal FLAIR and T2 signal throughout the right temporal lobe which extends posteriorly along the medial temporal lobe into the cingulate gyrus adjacent to the splenium of the corpus callosum. There is also involvement of the right insular cortex. Abnormalities are also seen in the left anterior and medial temporal lobe. The findings are unchanged. Findings are consistent with herpes encephalitis. BRAIN PARENCHYMA: As above no atrophy or chronic microvascular ischemic changes. VENTRICLES: Unremarkable. No hydrocephalus. CRANIUM: Unremarkable. ORBITS: Grossly unremarkable. PARANASAL SINUSES/MASTOIDS: Clear VASCULAR SYSTEM: Skull base flow voids intact. OTHER FINDINGS: None. IMPRESSION: There is restricted diffusion as well as abnormal FLAIR and T2 signal throughout the right temporal lobe which extends posteriorly along the medial temporal lobe into the cingulate gyrus adjacent to the splenium of the corpus callosum. There is also involvement of the right insular cortex. Abnormalities are also seen in the left anterior and medial temporal lobe. The findings are unchanged. Findings are consistent with herpes encephalitis.
[2019-01-13 09:29] LABS: HEMOGLOBIN 8.8 g/dL (12.0-16.0); MEAN CELL VOLUME 97.1 fl (80.0-105.0); MEAN CORPUSCULAR HEMOGLOBIN 31.5 pg (25.0-35.0); MEAN CORPUSCULAR HGB CONC 32.5 g/dl (31.0-37.0); MEAN PLATELET VOLUME 11.5 fl (7.0-11.0); RBC 2.79 10^6/uL (3.5-6.1); WHITE BLOOD COUNT 6.5 10^3/uL (4.5-11.0)
[2019-01-13 09:35] LABS: ALBUMIN 2.6 g/dL (3.0-4.8); CALCIUM 8.2 mg/dL (8.4-10.5)
--- NOTE | 2019-01-13 10:17 | CP.PCM.PN ---
<Eliel Cheek - Last Filed: 01/13/19 20:15> Subjective - Date & Time of Evaluation Date of Evaluation: 01/13/19 Time of Evaluation: 06:00 - Subjective Subjective: Patient seen and evaluated bedside. Questionable hemorrhage on MRI yesterday, no focal deficits. Patient is drowsy and lethargic opens to name being called. Unable to obtain full ROS due to mental status. Objective - Vital Signs/Intake and Output Vital Signs (last 24 hours): Temp Pulse Resp BP Pulse Ox 97.2 F L 64 18 171/81 H 100 01/13/19 08:04 01/13/19 08:04 01/13/19 08:04 01/13/19 08:04 01/13/19 08:04 Intake and Output: 01/13/19 01/13/19 06:59 18:59 Intake Total 1080 Output Total 850 Balance 230 - Medications Medications: Current Medications Clonidine HCl (Catapres) 0.1 mg PO Q4H PRN PRN Reason: hypertension Last Admin: 01/13/19 05:51 Dose: 0.1 mg Clonidine HCl (Catapres) 0.[address] [facility] Last Admin: 01/12/19 20:15 Dose: 0.1 mg Diltiazem HCl (Cardizem) [address] [facility] Last Admin: 01/12/19 20:14 Dose: 60 mg Hydralazine HCl (Apresoline) [address] [facility] Last Admin: 01/08/19 18:35 Dose: Not Given Acyclovir 500 mg/ Sodium (Chloride) 100 mls @ 100 mls/hr IV TuThSa@1300 [facility]; Protocol Last Admin: 01/10/19 14:57 Dose: 100 mls/hr Acyclovir 500 mg/ Sodium (Chloride) 100 mls @ 100 mls/hr IV 0600 [facility]; Protocol Last Admin: 01/13/19 05:24 Dose: 100 mls/hr Levetiracetam (Keppra 500mg Ivpb) 500 mg in 100 mls @ 400 mls/hr IVPB BID [facility] Last Admin: 01/12/19 20:15 Dose: 400 mls/hr Isosorbide Mononitrate (Imdur Er) [address] [facility] Last Admin: 01/12/19 09:22 Dose: 30 mg Metoprolol Tartrate (Lopressor) [address] [facility] Last Admin: 01/12/19 20:14 Dose: 75 mg Midazolam HCl (Versed Inj) 2 mg IVP Q4 PRN PRN Reason: Agitation Pantoprazole Sodium (Protonix Ec Tab) [address] [facility] Last Admin: 01/12/19 09:07 Dose: 40 mg Prednisone (Prednisone Tab) [address] [facility] Last Admin: 01/12/19 20:13 Dose: 10 mg - Labs Labs: 01/13/19 08:50 01/13/19 08:50 - Constitutional Appears: No Acute Distress - Head Exam Head Exam: ATRAUMATIC, NORMAL INSPECTION, NORMOCEPHALIC - Eye Exam Eye Exam: EOMI, Normal appearance, PERRL - ENT Exam ENT Exam: Mucous Membranes Moist - Respiratory Exam Respiratory Exam: NORMAL BREATHING PATTERN - Cardiovascular Exam Cardiovascular Exam: REGULAR RHYTHM, +S1, +S2 - GI/Abdominal Exam GI & Abdominal Exam: Soft - Neurological Exam Neurological Exam: Alert, Awake Neuro motor strength exam: Left Upper Extremity: 5, Right Upper Extremity: 5, Left Lower Extremity: 5, Right Lower Extremity: 5 Additional comments: Alert to self and place, no focal deficits noted, lethargic, no dysarthria, facial droop negative Assessment and Plan - Assessment and Plan (Free Text) Assessment: 68 yr old woman with encephalitis, herpes most likely, continuing to have interictal sharp waves, that are indicative of predisposition for epilepsy. Plan: Herpes Encephalitis with subclinical seizures - Continue acyclovir - Continue keppra 500 BID - started dilantin 100mg TID - armodafinil 150 daily started - VEEG ordered - Physical therapy - MRI Brain yesterday showed: There is restricted diffusion as well as abnormal FLAIR and T2 signal throughout the right temporal lobe which extends posteriorly along the medial temporal lobe into the cingulate gyrus adjacent to the splenium of the corpus callosum. There is also involvement of the right insular cortex. Abnormalities are also seen in the left anterior and medial temporal lobe. The findings are unchanged. Findings are consistent with herpes encephalitis. - continue to monitor mental status <Tobi Orellana - Last Filed: 01/14/19 19:25> Objective - Vital Signs/Intake and Output Vital Signs (last 24 hours): Temp Pulse Resp BP Pulse Ox 97.9 F 72 20 166/81 H 98 01/14/19 06:00 01/14/19 18:28 01/14/19 06:00 01/14/19 18:28 01/14/19 06:00 Intake and Output: 01/14/19 01/15/19 18:59 06:59 Intake Total 240 Output Total 0 Balance 240 - Medications Medications: Current Medications Armodafinil (Nuvigil 150 Mg Tab) [address] [facility] Last Admin: 01/14/19 11:10 Dose: 150 mg Clonidine HCl (Catapres) 0.1 mg PO Q4H PRN PRN Reason: hypertension Last Admin: 01/14/19 06:01 Dose: 0.1 mg Clonidine HCl (Catapres) 0.[address] [facility] Last Admin: 01/14/19 18:25 Dose: 0.1 mg Diltiazem HCl (Cardizem) [address] [facility] Last Admin: 01/14/19 18:24 Dose: 60 mg Hydralazine HCl (Apresoline) [address] [facility] Last Admin: 01/08/19 18:35 Dose: Not Given Acyclovir 500 mg/ Sodium (Chloride) 100 mls @ 100 mls/hr IV TuThSa@1300 [facility]; Protocol Last Admin: 01/13/19 14:57 Dose: 100 mls/hr Acyclovir 500 mg/ Sodium (Chloride) 100 mls @ 100 mls/hr IV 0600 [facility]; Protocol Last Admin: 01/14/19 05:13 Dose: 100 mls/hr Levetiracetam (Keppra 500mg Ivpb) 500 mg in 100 mls @ 400 mls/hr IVPB BID [facility] Last Admin: 01/14/19 18:25 Dose: 400 mls/hr Phenytoin 100 mg/ Sodium (Chloride) 52 mls @ 104 mls/hr IVPB Q8 [facility] Last Admin: 01/14/19 15:44 Dose: 104 mls/hr Isosorbide Mononitrate (Imdur Er) [address] [facility] Last Admin: 01/14/19 11:06 Dose: 30 mg Metoprolol Tartrate (Lopressor) [address] [facility] Last Admin: 01/14/19 18:28 Dose: 75 mg Midazolam HCl (Versed Inj) 2 mg IVP Q4 PRN PRN Reason: Agitation Pantoprazole Sodium (Protonix Ec Tab) [address] [facility] Last Admin: 01/14/19 11:10 Dose: 40 mg Polyethylene Glycol (Miralax) 17 gm PO DAILY PRN PRN Reason: Constipation Last Admin: 01/14/19 16:39 Dose: 17 gm Prednisone (Prednisone Tab) [address] [facility] Last Admin: 01/14/19 18:29 Dose: 10 mg - Labs Labs: 01/13/19 08:50 01/13/19 08:50 Attending/Attestation - Attestation I have personally seen and examined this patient.: Yes I have fully participated in the care of the patient.: Yes I have reviewed all pertinent clinical information, including history, physical exam and plan: Yes Notes (Text): I agree with the assessment and plan. Will add dilantin 100 mg TID and start Provigil 150 mg daily to treat seizures and improve alertness, respectively.
[2019-01-13] MEDS: levETIRAcetam 500mg IVPB 500 MG/100 ML BAG IVPB SCH ×2 (12:39→17:36)
[2019-01-13] MEDS: Pantoprazole 40 mg EC Tab PO SCH (12:45)
--- NOTE | 2019-01-13 13:58 | PN ---
DATE: 01/13/2019 SUBJECTIVE: The patient has just returned from dialysis, 1.5 liters of fluid were removed. Discussion with the patient's . 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 She continues on IV acyclovir therapy. The patient had a follow-up MRI yesterday, which showed stability of the herpes encephalitis. There was some question about there being a small hemorrhage. The radiologist will review the MRI study and reach definitive conclusion. MEDICATIONS: Medication list reviewed. The patient is on acyclovir, hydralazine is on hold, Cardizem, clonidine, Imdur, Keppra, Lopressor, prednisone down to 10 mg twice a day, Protonix, and Versed p.r.n. OBJECTIVE: INTAKE/OUTPUT: Intake is 1180, output is 850. VITAL SIGNS: Blood pressure is 171/81, temperature 97.2, respiratory rate is 18 with a pulse of 64. HEENT: Exam shows her to be normocephalic, atraumatic. Conjunctivae are pale. Sclerae are nonicteric. NECK: Supple. No neck vein distention. CHEST: Slight decreased breath sounds at the bases. She has a right chest wall PermCath. No rales, rhonchi or wheezing. CARDIOVASCULAR: Shows a regular rate and rhythm without audible murmurs, rubs or gallops. ABDOMEN: Soft. Bowel sounds normal. No rebound, guarding or masses. EXTREMITIES: Show no lower extremity cyanosis, clubbing or edema. IMAGING STUDIES: Repeat MRI report shows findings to be unchanged on one report and consistent with herpes encephalitis. There is a second report that suggest that there might be a small cerebral hemorrhage. Again, radiology will review this and revise the report accordingly. LABORATORY DATA: CBC, white blood cell count 6.5, hemoglobin stable at 8.8, platelet count is 163,000. Chemistries normal electrolytes. BUN 95 with a creatinine of 4.0. Glucose 166. Calcium 8.2. Phosphorus controlled at 4.6, magnesium 1.9. Liver enzymes are normal. Albumin remains low at 2.6. Microbiology, all cultures were negative except for the herpes simplex virus type 2 PCR, which was detected. ASSESSMENT: 1. Acute renal failure in a patient requiring dialysis on a regular basis. 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 She is status post past treatments with plasmapheresis, rituximab, Cytoxan and steroids, the steroid dose is now being reduced by Dr. French. She is currently dependent on dialysis. The plan is not to suppress her immune system with any more immunosuppressive agents. 2. Altered mental status in part secondary to herpes encephalitis. The patient is completing a full course of acyclovir under the guidance of Infectious Disease. 3. History of hypertension. Blood pressure control is acceptable. The patient will continue on present medical therapy. 4. Status post multi focal pneumonia. The patient completed a course of antibiotic therapy. 5. History of anemia secondary to bone marrow suppression secondary to infection secondary to chronic kidney disease. The patient will receive Aranesp to maintain hemoglobin in the 9-10 range. Last hemoglobin was 8.8. 6. Past history of breast cancer, status post lumpectomy, stable. 7. History of secondary hyperparathyroidism. The patient's phosphorus level is acceptable at 4.6. She is currently off binder therapy or remains on a renal diet. PLAN: 1. Discussed with staff on 3R. We will have radiology re-read the MRI done yesterday and produce a definitive reading. 2. Complete a full course of IV acyclovir for 21 days. 3. Continue Saturday, , Saturday dialysis. 4. Close neuro followup. 5. Continue to taper steroids as per Dr. French's orders. 6. Continue present blood pressure medication. 7. Continue to monitor the patient on telemetry with close observation near the nursing station. 8. For her initial seizure activity, continue IV Keppra. 9. Continue intensive physical therapy. Ovidio Randall MD
--- NOTE | 2019-01-13 14:11 | CP.PCM.PCO ---
Physician Communication Note - Physician Communication Note Physician Communication Note: pt.seen post hd,remains lethargic,arousable,on Keppra 500,Acyclovir d
--- NOTE | 2019-01-13 14:24 | PN ---
DATE: 01/12/2019 SUBJECTIVE: The patient is a 68-year-old female who was admitted on 12/27/2018 with lethargy and mental status changes. 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 She had some bursts of SVT during the hospital stay which were treated with beta-blockers. She is followed by Dr. Haywood, the Infectious Disease specialist; Dr. Calvert, the chimney builder; Dr. Randall, her clinical implementation specialist. She suffered a seizure after dialysis, was taken to the Intensive Care Unit. Workup there suggested herpes encephalitis. Lumbar puncture was performed by Dr. Faith which confirmed the diagnosis. She is being treated by acyclovir 500 mg every 24 hours plus 500 mg after each dialysis treatment. She was started on 21-day regimen of acyclovir. When seen today, the patient had just returned from a repeat MRI of the brain; her is at bedside. She was somnolent; however, she was arousable and did speak a few words and answered questions appropriately. Her physical exam is otherwise unchanged. Heart sounds are regular. Anterior lung sounds are clear. She is afebrile. Blood pressure is 178/81, heart rate is 60. We will be looking forward to the results of the repeat MRI. The patient is scheduled for dialysis again tomorrow. We are continuing to follow the patient closely and hopeful of improvement of her mental status. Mars Webb MD
--- NOTE | 2019-01-13 14:34 | PN ---
DATE: 01/13/2019 SUBJECTIVE: The patient is seen in bed, in no acute distress. Nontoxic. She was seen earlier. She is responsive. PHYSICAL EXAMINATION: VITAL SIGNS: Temperature is 97, blood pressure 170/80 and respiratory rate of 18. HEENT: Unremarkable. NECK: Supple. LUNGS: Decreased breath sounds. HEART: Normal S1 and S2. ABDOMEN: Soft and nontender. LABORATORY DATA: Reveals a white count of 6.5 and hemoglobin is noted. BUN of 95 and creatinine 4.0. Urinalysis is noted and review of orders reveals the patient is on acyclovir once daily and after each dialysis. The patient had an MRI yesterday. ASSESSMENT AND PLAN: A 68-year-old female who has Daphnie's vasculitis, on immunosuppressive medication and with end-stage renal disease, on hemodialysis on Tuesdays and and Saturdays; history of breast cancer; hypertension; admitted with herpes encephalitis, herpes type 2 with sepsis and the patient granulomatous polyangiitis. Today is day #16 of 21 days of acyclovir. We will follow with you. Ramana Haywood MD
--- NOTE | 2019-01-13 23:54 | PN ---
DATE: 01/13/2019 DAILY PROGRESS NOTE The patient was seen this Saturday in room 262, bed 2 with her , Guerrero, at the bedside. Unfortunately, her mental status seems little less awake, less alert or short today than when I visited her on Saturday. Again, she is arousable but now with brisk touch and loud voice, she will open her eyes slightly and talking in for few seconds and then closed her eyes to sleep. Medications were reviewed. I am pleased to see that her Keppra has been decreased to 500 mg b.i.d. 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 form as she is taking p.o. very easily. I see also that Nuvigil has been started as 50 mg p.o. daily. P.o. prednisone continues. Dilantin has been added every 8 hours, and clonidine continues to be tapered. Focused to the patient's boyfriend// at the bedside regarding her status. We will continue current management and continue to look for input from Infectious Disease, Renal hypertension as well as Neurology. Simon Webb MD
[2019-01-14] MEDS: Acyclovir 500 MG in Sodium Chloride 0.9% 100 ML IV SCH (05:13)
--- NOTE | 2019-01-14 07:09 | CP.PCM.PN ---
Subjective - Date & Time of Evaluation Date of Evaluation: 01/14/19 Time of Evaluation: 06:40 - Subjective Subjective: Lying in bed, lethargic, no distress Reason for consultation and follow up: Cardiac evaluation of elevated troponin, acute kidney injury,ruled out myocardial ischemia, admitted with altered mental status, positive for herpes encephalitis Seen and examined by me and Dr. Calvert Objective - Vital Signs/Intake and Output Vital Signs (last 24 hours): Temp Pulse Resp BP Pulse Ox 97.2 F L 87 18 178/77 H 100 01/13/19 16:08 01/14/19 06:01 01/13/19 16:08 01/14/19 06:01 01/13/19 16:08 Intake and Output: 01/14/19 01/14/19 06:59 18:59 Intake Total 1080 Output Total 500 Balance 580 - Medications Medications: Current Medications Armodafinil (Nuvigil 150 Mg Tab) 150 mg PO DAILY [facility] Last Admin: 01/13/19 18:21 Dose: 150 mg Clonidine HCl (Catapres) 0.1 mg PO Q4H PRN PRN Reason: hypertension Last Admin: 01/14/19 06:01 Dose: 0.1 mg Clonidine HCl (Catapres) 0.1 mg PO BID [facility] Last Admin: 01/13/19 17:36 Dose: 0.1 mg Diltiazem HCl (Cardizem) 60 mg PO TID [facility] Last Admin: 01/13/19 17:35 Dose: 60 mg Hydralazine HCl (Apresoline) 50 mg PO BID [facility] Last Admin: 01/08/19 18:35 Dose: Not Given Acyclovir 500 mg/ Sodium (Chloride) 100 mls @ 100 mls/hr IV TuThSa@1300 [facility]; Protocol Last Admin: 01/13/19 14:57 Dose: 100 mls/hr Acyclovir 500 mg/ Sodium (Chloride) 100 mls @ 100 mls/hr IV 0600 [facility]; Protocol Last Admin: 01/14/19 05:13 Dose: 100 mls/hr Levetiracetam (Keppra 500mg Ivpb) 500 mg in 100 mls @ 400 mls/hr IVPB BID [facility] Last Admin: 01/13/19 17:36 Dose: 400 mls/hr Phenytoin 100 mg/ Sodium (Chloride) 52 mls @ 104 mls/hr IVPB Q8 [facility] Last Admin: 01/14/19 06:02 Dose: 104 mls/hr Isosorbide Mononitrate (Imdur Er) 30 mg PO DAILY [facility] Last Admin: 01/13/19 12:39 Dose: 30 mg Metoprolol Tartrate (Lopressor) 75 mg PO BID [facility] Last Admin: 01/13/19 17:36 Dose: 75 mg Midazolam HCl (Versed Inj) 2 mg IVP Q4 PRN PRN Reason: Agitation Pantoprazole Sodium (Protonix Ec Tab) 40 mg PO ACB [facility] Last Admin: 01/13/19 12:45 Dose: Not Given Prednisone (Prednisone Tab) 10 mg PO BID [facility] Last Admin: 01/13/19 17:37 Dose: 10 mg - Labs Labs: 01/13/19 08:50 01/13/19 08:50 - Constitutional Appears: Non-toxic, No Acute Distress - Head Exam Head Exam: NORMAL INSPECTION, NORMOCEPHALIC - ENT Exam ENT Exam: Mucous Membranes Dry - Respiratory Exam Respiratory Exam: Decreased Breath Sounds, Clear to Ausculation Bilateral, NORMAL BREATHING PATTERN - Cardiovascular Exam Cardiovascular Exam: REGULAR RHYTHM, +S1, +S2 Additional comments: right chest permacath - GI/Abdominal Exam GI & Abdominal Exam: Soft, Normal Bowel Sounds - Extremities Exam Extremities Exam: Full ROM, Normal Capillary Refill - Neurological Exam Additional comments: lethargic - Skin Skin Exam: Dry, Normal Color, Warm Assessment and Plan - Assessment and Plan (Free Text) Assessment: A 68 year old female who was admitted to the ER due to altered mental status and acute renal injury. 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 Positive troponin on admission secondary to renal insufficiency/injury. Echo done on 11/08/18 showed LVEF 56%, moderate MR, mild TR. Neuro on consult. Renal on consult. Brain MRI showed herpes enchephalitis. ID on consult. Continue IV antibiotics. On hemodialysis 3 x a week (TTS). Repeat MRI final report showed unchanged herpes enchephalitis. C ardiac status stable. Seizure precaution. Had hemodialysis yesterday pulled 1.5 liters of fluid. Lethargic. Plan: No distress, lethargic Had hemodialysis yesterday pulled 1.5 liters Heart rate stable Blood pressure stable Cardiac status stable On ASA 81 mg daily, Catapres 0.2 mg TID, Cardizem 60 mg TID Hydralazine 50 mg BID, Imdur ER 30 mg daily, Cozaar 100 mg daily, Lopressor 75 mg BID, Prednisone 10 mg every PM and 20 mg every AM Continue IV antibiotics per ID Neuro and Renal on consult Continue current treatment Continue current medications Seizure precaution Supportive care Will follow up Plan and treatment discussed with Dr. Calvert
--- NOTE | 2019-01-14 10:48 | CP.PCM.PN ---
<Eliel Cheek - Last Filed: 01/14/19 14:36> Subjective - Date & Time of Evaluation Date of Evaluation: 01/14/19 Time of Evaluation: 06:00 - Subjective Subjective: Patient seen and evaluated bedside. Much more alert today and less lethargic. Able to answer questions appropriately. Denies any acute issues but still says she is tired. Objective - Vital Signs/Intake and Output Vital Signs (last 24 hours): Temp Pulse Resp BP Pulse Ox 97.2 F L 87 18 178/77 H 100 01/13/19 16:08 01/14/19 08:57 01/13/19 16:08 01/14/19 08:57 01/13/19 16:08 Intake and Output: 01/14/19 01/14/19 06:59 18:59 Intake Total 2555 240 Output Total 500 0 Balance 2055 240 - Medications Medications: Current Medications Armodafinil (Nuvigil 150 Mg Tab) 150 mg PO DAILY [facility] Last Admin: 01/13/19 18:21 Dose: 150 mg Clonidine HCl (Catapres) 0.1 mg PO Q4H PRN PRN Reason: hypertension Last Admin: 01/14/19 06:01 Dose: 0.1 mg Clonidine HCl (Catapres) 0.1 mg PO BID [facility] Last Admin: 01/14/19 08:56 Dose: 0.1 mg Diltiazem HCl (Cardizem) 60 mg PO TID [facility] Last Admin: 01/14/19 08:56 Dose: 60 mg Hydralazine HCl (Apresoline) 50 mg PO BID [facility] Last Admin: 01/08/19 18:35 Dose: Not Given Acyclovir 500 mg/ Sodium (Chloride) 100 mls @ 100 mls/hr IV TuThSa@1300 [facility]; Protocol Last Admin: 01/13/19 14:57 Dose: 100 mls/hr Acyclovir 500 mg/ Sodium (Chloride) 100 mls @ 100 mls/hr IV 0600 [facility]; Protocol Last Admin: 01/14/19 05:13 Dose: 100 mls/hr Levetiracetam (Keppra 500mg Ivpb) 500 mg in 100 mls @ 400 mls/hr IVPB BID [facility] Last Admin: 01/13/19 17:36 Dose: 400 mls/hr Phenytoin 100 mg/ Sodium (Chloride) 52 mls @ 104 mls/hr IVPB Q8 [facility] Last Admin: 01/14/19 06:02 Dose: 104 mls/hr Isosorbide Mononitrate (Imdur Er) 30 mg PO DAILY [facility] Last Admin: 01/13/19 12:39 Dose: 30 mg Metoprolol Tartrate (Lopressor) 75 mg PO BID [facility] Last Admin: 01/14/19 08:57 Dose: 75 mg Midazolam HCl (Versed Inj) 2 mg IVP Q4 PRN PRN Reason: Agitation Pantoprazole Sodium (Protonix Ec Tab) 40 mg PO ACB [facility] Last Admin: 01/13/19 12:45 Dose: Not Given Prednisone (Prednisone Tab) 10 mg PO BID [facility] Last Admin: 01/13/19 17:37 Dose: 10 mg - Labs Labs: 01/13/19 08:50 01/13/19 08:50 - Constitutional Appears: No Acute Distress - Head Exam Head Exam: ATRAUMATIC, NORMAL INSPECTION, NORMOCEPHALIC - Eye Exam Eye Exam: Normal appearance - ENT Exam ENT Exam: Mucous Membranes Moist - Respiratory Exam Respiratory Exam: Clear to Ausculation Bilateral, NORMAL BREATHING PATTERN - Cardiovascular Exam Cardiovascular Exam: REGULAR RHYTHM - Extremities Exam Extremities Exam: Full ROM. absent: Pedal Edema - Neurological Exam Neurological Exam: Alert, Awake, CN II-XII Intact, Oriented x3 Neuro motor strength exam: Left Upper Extremity: 5, Right Upper Extremity: 5, Left Lower Extremity: 5, Right Lower Extremity: 5 Assessment and Plan - Assessment and Plan (Free Text) Assessment: 68 yr old woman with encephalitis, herpes most likely, continuing to have interictal sharp waves, that are indicative of predisposition for epilepsy. Plan: Herpes Encephalitis with subclinical seizures - Continue acyclovir - Continue keppra 500 BID - dilantin 100mg TID - armodafinil 150 daily started - VEEG pending - Physical therapy - MRI Brain yesterday showed: There is restricted diffusion as well as abnormal FLAIR and T2 signal throughout the right temporal lobe which extends posteriorly along the medial temporal lobe into the cingulate gyrus adjacent to the splenium of the corpus callosum. There is also involvement of the right insular cortex. Abnormalities are also seen in the left anterior and medial temporal lobe. The findings are unchanged. Findings are consistent with herpes encephalitis. - continue to monitor mental status <Tobi Orellana - Last Filed: 01/14/19 19:19> Objective - Vital Signs/Intake and Output Vital Signs (last 24 hours): Temp Pulse Resp BP Pulse Ox 97.9 F 72 20 166/81 H 98 01/14/19 06:00 01/14/19 18:28 01/14/19 06:00 01/14/19 18:28 01/14/19 06:00 Intake and Output: 01/14/19 01/15/19 18:59 06:59 Intake Total 240 Output Total 0 Balance 240 - Medications Medications: Current Medications Armodafinil (Nuvigil 150 Mg Tab) 150 mg PO DAILY [facility] Last Admin: 01/14/19 11:10 Dose: 150 mg Clonidine HCl (Catapres) 0.1 mg PO Q4H PRN PRN Reason: hypertension Last Admin: 01/14/19 06:01 Dose: 0.1 mg Clonidine HCl (Catapres) 0.1 mg PO BID [facility] Last Admin: 01/14/19 18:25 Dose: 0.1 mg Diltiazem HCl (Cardizem) 60 mg PO TID [facility] Last Admin: 01/14/19 18:24 Dose: 60 mg Hydralazine HCl (Apresoline) 50 mg PO BID [facility] Last Admin: 01/08/19 18:35 Dose: Not Given Acyclovir 500 mg/ Sodium (Chloride) 100 mls @ 100 mls/hr IV TuThSa@1300 [facility]; Protocol Last Admin: 01/13/19 14:57 Dose: 100 mls/hr Acyclovir 500 mg/ Sodium (Chloride) 100 mls @ 100 mls/hr IV 0600 [facility]; Protocol Last Admin: 01/14/19 05:13 Dose: 100 mls/hr Levetiracetam (Keppra 500mg Ivpb) 500 mg in 100 mls @ 400 mls/hr IVPB BID [facility] Last Admin: 01/14/19 18:25 Dose: 400 mls/hr Phenytoin 100 mg/ Sodium (Chloride) 52 mls @ 104 mls/hr IVPB Q8 [facility] Last Admin: 01/14/19 15:44 Dose: 104 mls/hr Isosorbide Mononitrate (Imdur Er) 30 mg PO DAILY [facility] Last Admin: 01/14/19 11:06 Dose: 30 mg Metoprolol Tartrate (Lopressor) 75 mg PO BID [facility] Last Admin: 01/14/19 18:28 Dose: 75 mg Midazolam HCl (Versed Inj) 2 mg IVP Q4 PRN PRN Reason: Agitation Pantoprazole Sodium (Protonix Ec Tab) 40 mg PO ACB [facility] Last Admin: 01/14/19 11:10 Dose: 40 mg Polyethylene Glycol (Miralax) 17 gm PO DAILY PRN PRN Reason: Constipation Last Admin: 01/14/19 16:39 Dose: 17 gm Prednisone (Prednisone Tab) 10 mg PO BID [facility] Last Admin: 01/14/19 18:29 Dose: 10 mg - Labs Labs: 01/13/19 08:50 01/13/19 08:50 Attending/Attestation - Attestation I have personally seen and examined this patient.: Yes I have fully participated in the care of the patient.: Yes I have reviewed all pertinent clinical information, including history, physical exam and plan: Yes Notes (Text): I agree with the assessment and plan. Appears to be much improved with dilantin and provigil. Will continue current regimen and follow VEEG.
[2019-01-14] MEDS: levETIRAcetam 500mg IVPB 500 MG/100 ML BAG IVPB SCH ×2 (11:06→18:25)
[2019-01-14] MEDS: Pantoprazole 40 mg EC Tab PO SCH (11:10)
--- NOTE | 2019-01-14 14:04 | CP.PCM.APN ---
Subjective - Date & Time of Evaluation Date of Evaluation: 01/14/19 Time of Evaluation: 09:40 - Subjective Subjective: Pt. seen and examined at bedside, awake, more alert. Objective - Vital Signs/Intake and Output Vital Signs (last 24 hours): Temp Pulse Resp BP Pulse Ox 97.2 F L 87 18 178/77 H 100 01/13/19 16:08 01/14/19 08:57 01/13/19 16:08 01/14/19 08:57 01/13/19 16:08 Intake and Output: 01/14/19 01/14/19 06:59 18:59 Intake Total 2555 240 Output Total 500 0 Balance 2055 240 - Medications Medications: Current Medications Armodafinil (Nuvigil 150 Mg Tab) 150 mg PO DAILY [facility] Last Admin: 01/14/19 11:10 Dose: 150 mg Clonidine HCl (Catapres) 0.1 mg PO Q4H PRN PRN Reason: hypertension Last Admin: 01/14/19 06:01 Dose: 0.1 mg Clonidine HCl (Catapres) 0.1 mg PO BID [facility] Last Admin: 01/14/19 11:06 Dose: Not Given Diltiazem HCl (Cardizem) 60 mg PO TID [facility] Last Admin: 01/14/19 11:05 Dose: Not Given Hydralazine HCl (Apresoline) 50 mg PO BID [facility] Last Admin: 01/08/19 18:35 Dose: Not Given Acyclovir 500 mg/ Sodium (Chloride) 100 mls @ 100 mls/hr IV TuThSa@1300 [facility]; Protocol Last Admin: 01/13/19 14:57 Dose: 100 mls/hr Acyclovir 500 mg/ Sodium (Chloride) 100 mls @ 100 mls/hr IV 0600 [facility]; Protocol Last Admin: 01/14/19 05:13 Dose: 100 mls/hr Levetiracetam (Keppra 500mg Ivpb) 500 mg in 100 mls @ 400 mls/hr IVPB BID [facility] Last Admin: 01/14/19 11:06 Dose: 400 mls/hr Phenytoin 100 mg/ Sodium (Chloride) 52 mls @ 104 mls/hr IVPB Q8 [facility] Last Admin: 01/14/19 06:02 Dose: 104 mls/hr Isosorbide Mononitrate (Imdur Er) 30 mg PO DAILY [facility] Last Admin: 01/14/19 11:06 Dose: 30 mg Metoprolol Tartrate (Lopressor) 75 mg PO BID [facility] Last Admin: 01/14/19 11:09 Dose: Not Given Midazolam HCl (Versed Inj) 2 mg IVP Q4 PRN PRN Reason: Agitation Pantoprazole Sodium (Protonix Ec Tab) 40 mg PO ACB [facility] Last Admin: 01/14/19 11:10 Dose: 40 mg Prednisone (Prednisone Tab) 10 mg PO BID [facility] Last Admin: 01/14/19 11:10 Dose: 10 mg - Labs Labs: 01/13/19 08:50 01/13/19 08:50 - Constitutional Appears: Non-toxic - Head Exam Head Exam: NORMOCEPHALIC - Eye Exam Eye Exam: Normal appearance - ENT Exam ENT Exam: Mucous Membranes Moist, Normal Exam - Neck Exam Neck Exam: Full ROM - Respiratory Exam Respiratory Exam: Clear to Ausculation Bilateral - Cardiovascular Exam Cardiovascular Exam: REGULAR RHYTHM, +S1, +S2 - GI/Abdominal Exam GI & Abdominal Exam: Soft, Normal Bowel Sounds - Rectal Exam Rectal Exam: Deferred - Exam Exam: absent: Circumcision, NORMAL INSPECTION, Scrotal Swelling, Testicular Tenderness, Uretheral Discharge, Testicular Vertical Lie, Bladder Distension External exam: absent: Ecchymosis, Erythema, Lacerations, Lesions, NORMAL EXTERNAL EXAM, Swelling Speculum exam: absent: Cervical Discharge, Erythema, Foreign Body, Laceration, NORMAL SPECULUM EXAM, Tissue, Vaginal Bleeding, Vaginal Discharge Bimanual exam: absent: Adenexal Mass, Adnexal, Cervical Motion Tendernes, NORMAL BIMANUAL EXAM, Uterine Enlargement, Uterine Tenderness - Extremities Exam Extremities Exam: Full ROM - Psychiatric Exam Additional comments: more alert today - Skin Skin Exam: absent: Abrasion, Cyanosis, Diaphoretic, Dry, Erythema, Intact, Mottled, Normal Color, Pallor, Pallor, Petechiae, Rash, Urticaria, Vesicles, Warm Assessment and Plan - Assessment and Plan (Free Text) Assessment: ITS Impressions Chest X-Ray 12/27/18 12:53 IMPRESSION: Density at the left base suggest small pleural effusion with underlying atelectasis or infiltrate not excluded. Interval permanent right right dialysis catheter inserted as discussed above. Chest/Abdomen/Pelvis CT 12/29/18 17:45 IMPRESSION: Moderate to large bilateral pleural effusions. The evaluation for possible empyema is limited without IV contrast administration. No evidence of localized pleural effusion. Cardiomegaly. Patchy foci of dense ground-glass opacities and airspace consolidation in both lungs may represent multifocal pneumonia versus less likely pneumonitis or severe pulmonary congestion. No evidence of acute pathology in the abdomen and pelvis. Focal cortical thickening versus cortical lesion noted at the midpole of the left kidney. Further evaluation by ultrasound is suggested. Head CT 12/30/18 12:59 IMPRESSION: No evidence of acute intracranial hemorrhage mass effect or midline shift. No significant interval change in the brain parenchyma noted since the prior study. Sphenoid and right maxillary mucosal thickening suspicious for sinusitis. Brain MRI 01/12/19 14:18 IMPRESSION: Assessment: 68 yr old woman admitted with AMS, had seizure in dialysis, found to have herpetic encephalitis,, continuing to have interictal sharp waves, that are indicative of predisposition for epilepsy, treated with Acyclovir and KepprA, with Neuro and I.D. consulted. Plan: 1. AMS likely r/t Herpetic encephalitis, continue Acycolvir day 15/. 2. New Onset Seizures continue Keppra, Dilantin per Neuro. Pt. rec. Acute rehab. Will continue to monitor clinical status and follow closely.
[2019-01-14] MEDS: POLYETHYLENE GLYCOL 3350 17 GM/Dose PACKET PO PRN (16:39)
--- NOTE | 2019-01-14 19:31 | CP.PCM.PN ---
Subjective - Date & Time of Evaluation Date of Evaluation: 01/14/19 Time of Evaluation: 07:00 - Subjective Subjective: Patient is not in distress, but is still somnolent but arousable, no fevers noted overnight, not in distress. As per boyfriend, patient was able to sit up with assistance yesterday, looked like she understood some commands as per boyfriend yesterday. Objective - Vital Signs/Intake and Output Vital Signs (last 24 hours): Temp Pulse Resp BP Pulse Ox 97.2 F L 79 18 172/81 H 100 01/13/19 16:08 01/13/19 18:00 01/13/19 16:08 01/13/19 17:36 01/13/19 16:08 Intake and Output: 01/13/19 01/14/19 18:59 06:59 Intake Total 1080 Output Total 500 Balance 580 - Medications Medications: Current Medications Armodafinil (Nuvigil 150 Mg Tab) 150 mg PO DAILY [facility] Last Admin: 01/13/19 18:21 Dose: 150 mg Clonidine HCl (Catapres) 0.1 mg PO Q4H PRN PRN Reason: hypertension Last Admin: 01/13/19 05:51 Dose: 0.1 mg Clonidine HCl (Catapres) 0.1 mg PO BID [facility] Last Admin: 01/13/19 17:36 Dose: 0.1 mg Diltiazem HCl (Cardizem) 60 mg PO TID [facility] Last Admin: 01/13/19 17:35 Dose: 60 mg Hydralazine HCl (Apresoline) 50 mg PO BID [facility] Last Admin: 01/08/19 18:35 Dose: Not Given Acyclovir 500 mg/ Sodium (Chloride) 100 mls @ 100 mls/hr IV TuThSa@1300 [facility]; Protocol Last Admin: 01/13/19 14:57 Dose: 100 mls/hr Acyclovir 500 mg/ Sodium (Chloride) 100 mls @ 100 mls/hr IV 0600 [facility]; Protocol Last Admin: 01/13/19 05:24 Dose: 100 mls/hr Levetiracetam (Keppra 500mg Ivpb) 500 mg in 100 mls @ 400 mls/hr IVPB BID [facility] Last Admin: 01/13/19 17:36 Dose: 400 mls/hr Phenytoin 100 mg/ Sodium (Chloride) 52 mls @ 104 mls/hr IVPB Q8 [facility] Last Admin: 01/13/19 18:16 Dose: 104 mls/hr Isosorbide Mononitrate (Imdur Er) 30 mg PO DAILY [facility] Last Admin: 01/13/19 12:39 Dose: 30 mg Metoprolol Tartrate (Lopressor) 75 mg PO BID [facility] Last Admin: 01/13/19 17:36 Dose: 75 mg Midazolam HCl (Versed Inj) 2 mg IVP Q4 PRN PRN Reason: Agitation Pantoprazole Sodium (Protonix Ec Tab) 40 mg PO ACB [facility] Last Admin: 01/13/19 12:45 Dose: Not Given Prednisone (Prednisone Tab) 10 mg PO BID [facility] Last Admin: 01/13/19 17:37 Dose: 10 mg - Labs Labs: 01/13/19 08:50 01/13/19 08:50 - Constitutional Appears: Chronically Ill - Head Exam Head Exam: NORMAL INSPECTION - Neck Exam Neck Exam: absent: Meningismus - Respiratory Exam Respiratory Exam: Decreased Breath Sounds - Cardiovascular Exam Cardiovascular Exam: +S1, +S2 - GI/Abdominal Exam GI & Abdominal Exam: Soft. 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
--- NOTE | 2019-01-14 21:14 | CP.PCM.PCO ---
<Bhavin Dsouza - Last Filed: 01/14/19 21:12> Addendum Addendum: 01/14/19 21:13 Overnight resident contacted for new rectal bleeding noted by nursing. Patient seen at bedside. Per nursing, no acute change in mental status from baseline. Patient's vitals are stable. Asked nursing to please contact the resident if an y clinical changes overnight. <Darian Lemon - Last Filed: 01/15/19 06:32> Attending/Attestation - Attestation I have personally seen and examined this patient.: Yes I have fully participated in the care of the patient.: Yes I have reviewed all pertinent clinical information: Yes
--- NOTE | 2019-01-15 02:01 | PN ---
DATE: 01/14/2019 SUBJECTIVE: The patient is seen lying in bed. She is getting a video EEG. She is much more awake today. She is arousable. She recognizes me. She is talking to her . OBJECTIVE: GENERAL: Elderly lady, lying in bed. VITAL SIGNS: Blood pressure 163/79, heart rate 72, respiratory rate 20, temperature 97.9. HEENT: Normocephalic, atraumatic, positive pallor. NECK: Supple, no JVD. LUNGS: Bilateral equal air entry, bilateral equal expansion. CARDIAC: S1 and S2. Regular rate and rhythm. No murmur, no rub. ABDOMEN: Soft, nondistended, nontender. Bowel sounds present. EXTREMITIES: No lower extremity edema. INTAKE AND OUTPUT: Not charted. LABORATORY DATA: WBC 6.5, hemoglobin 8.8, hematocrit 27, platelets 163. Sodium 133, potassium 4.5, chloride 100, CO2 of 25, BUN 95, creatinine 4, glucose 166, calcium 8.2, phosphorus 4.6 magnesium 1.9, albumin 2.6. MEDICATIONS: List reviewed. ASSESSMENT: 1. Herpes encephalitis with subclinical seizures. 2. End stage renal disease. 3. Recurrent Pauci-immune glomerulonephritis, remains dialysis dependent. 4. Immunocompromised host. 5. Severe hypertension. 6. Chronic anemia. PLAN: 1. Continue acyclovir. 2. Continue Keppra as per neurology recommendations. 3. Now on Dilantin 100 t.i.d. 4. Also started on Nuvigil. 5. Continue Cardizem 60 t.i.d. 6. Continue Catapres 0.1 b.i.d. 7. Steroid is being tapered off now on prednisone 10 b.i.d. 8. Increase metoprolol to 100 b.i.d. Continue losartan 100 mg daily. Dialysis tomorrow, labs predialysis, Aranesp and Hectorol to be given in dialysis. Monserrat French MD
[2019-01-15] MEDS: Acyclovir 500 MG in Sodium Chloride 0.9% 100 ML IV SCH ×2 (05:31→14:54)
--- NOTE | 2019-01-15 06:35 | CP.PCM.PN ---
Subjective - Date & Time of Evaluation Date of Evaluation: 01/15/19 Time of Evaluation: 06:32 - Subjective Subjective: Patient was seen at bedside. Has no complaints. She was seen because nurse found some blood clot on diaper. Has no blood in sputum,vomit, urine. Medical record was reviewed. This woman is admitted with weakness, lethargy , obtundation,AMS. Has PMH of : Renal failure. Anaya's Granulomatosis. Cushingoid appearance. Immunocompromised status. Breast cancer.S/P lumpectomy. Objective - Vital Signs/Intake and Output Vital Signs (last 24 hours): Temp Pulse Resp BP Pulse Ox 97.9 F 66 20 166/81 H 98 01/14/19 06:00 01/15/19 02:00 01/14/19 06:00 01/14/19 18:28 01/14/19 06:00 Intake and Output: 01/14/19 01/15/19 18:59 06:59 Intake Total 240 900 Output Total 0 Balance 240 900 - Medications Medications: Current Medications Armodafinil (Nuvigil 150 Mg Tab) 150 mg PO DAILY [facility] Last Admin: 01/14/19 11:10 Dose: 150 mg Clonidine HCl (Catapres) 0.1 mg PO Q4H PRN PRN Reason: hypertension Last Admin: 01/14/19 06:01 Dose: 0.1 mg Clonidine HCl (Catapres) 0.1 mg PO BID [facility] Last Admin: 01/14/19 18:25 Dose: 0.1 mg Diltiazem HCl (Cardizem) 60 mg PO TID [facility] Last Admin: 01/14/19 18:24 Dose: 60 mg Hydralazine HCl (Apresoline) 50 mg PO BID [facility] Last Admin: 01/08/19 18:35 Dose: Not Given Acyclovir 500 mg/ Sodium (Chloride) 100 mls @ 100 mls/hr IV TuThSa@1300 [facility]; Protocol Last Admin: 01/13/19 14:57 Dose: 100 mls/hr Acyclovir 500 mg/ Sodium (Chloride) 100 mls @ 100 mls/hr IV 0600 [facility]; Protocol Last Admin: 01/15/19 05:31 Dose: 100 mls/hr Levetiracetam (Keppra 500mg Ivpb) 500 mg in 100 mls @ 400 mls/hr IVPB BID [facility] Last Admin: 01/14/19 18:25 Dose: 400 mls/hr Phenytoin 100 mg/ Sodium (Chloride) 52 mls @ 104 mls/hr IVPB Q8 [facility] Last Admin: 01/15/19 05:31 Dose: 104 mls/hr Isosorbide Mononitrate (Imdur Er) 30 mg PO DAILY [facility] Last Admin: 01/14/19 11:06 Dose: 30 mg Losartan Potassium (Cozaar) 100 mg PO DAILY [facility] Metoprolol Tartrate (Lopressor) 75 mg PO BID [facility] Last Admin: 01/14/19 18:28 Dose: 75 mg Midazolam HCl (Versed Inj) 2 mg IVP Q4 PRN PRN Reason: Agitation Pantoprazole Sodium (Protonix Ec Tab) 40 mg PO ACB [facility] Last Admin: 01/14/19 11:10 Dose: 40 mg Polyethylene Glycol (Miralax) 17 gm PO DAILY PRN PRN Reason: Constipation Last Admin: 01/14/19 16:39 Dose: 17 gm Prednisone (Prednisone Tab) 10 mg PO BID [facility] Last Admin: 01/14/19 18:29 Dose: 10 mg - Labs Labs: 01/13/19 08:50 01/13/19 08:50 - Constitutional Appears: Well, No Acute Distress - Head Exam Head Exam: ATRAUMATIC, NORMAL INSPECTION, NORMOCEPHALIC - Eye Exam Eye Exam: Normal appearance - ENT Exam ENT Exam: Normal External Ear Exam - Neck Exam Neck Exam: Normal Inspection - Respiratory Exam Respiratory Exam: NORMAL BREATHING PATTERN - Cardiovascular Exam Cardiovascular Exam: absent: JVD - GI/Abdominal Exam GI & Abdominal Exam: absent: Distended - Rectal Exam Rectal Exam: Deferred - Exam Additional comments: Deferred. - Extremities Exam Extremities Exam: Normal Inspection - Back Exam Back Exam: NORMAL INSPECTION - Neurological Exam Neurological Exam: Alert, Awake - Psychiatric Exam Psychiatric exam: Normal Affect, Normal Mood - Skin Skin Exam: Normal Color Assessment and Plan - Assessment and Plan (Free Text) Assessment: Rectal bleeding. AMS. Anaya's Granulomatosis. Renal failure. History breast cancer. allergy to penicillin. Plan: CBC PT/INR.
--- NOTE | 2019-01-15 07:46 | CP.PCM.PN ---
Subjective - Date & Time of Evaluation Date of Evaluation: 01/15/19 Time of Evaluation: 06:55 - Subjective Subjective: Lying in bed, no distress, lethargic but open eyes to name calling, answers simple questions Reason for consultation and follow up: Cardiac evaluation of elevated troponin, acute kidney injury,ruled out myocardial ischemia, admitted with altered mental status, positive for herpes encephalitis Seen and examined by me and Dr. Sprague Objective - Vital Signs/Intake and Output Vital Signs (last 24 hours): Temp Pulse Resp BP Pulse Ox 97.9 F 66 20 166/81 H 98 01/14/19 06:00 01/15/19 06:00 01/14/19 06:00 01/14/19 18:28 01/14/19 06:00 Intake and Output: 01/15/19 01/15/19 06:59 18:59 Intake Total 900 0 Output Total 0 Balance 900 0 - Medications Medications: Current Medications Armodafinil (Nuvigil 150 Mg Tab) 150 mg PO DAILY [facility] Last Admin: 01/14/19 11:10 Dose: 150 mg Clonidine HCl (Catapres) 0.1 mg PO Q4H PRN PRN Reason: hypertension Last Admin: 01/14/19 06:01 Dose: 0.1 mg Clonidine HCl (Catapres) 0.1 mg PO BID [facility] Last Admin: 01/14/19 18:25 Dose: 0.1 mg Diltiazem HCl (Cardizem) 60 mg PO TID [facility] Last Admin: 01/14/19 18:24 Dose: 60 mg Hydralazine HCl (Apresoline) 50 mg PO BID [facility] Last Admin: 01/08/19 18:35 Dose: Not Given Acyclovir 500 mg/ Sodium (Chloride) 100 mls @ 100 mls/hr IV TuThSa@1300 [facility]; Protocol Last Admin: 01/13/19 14:57 Dose: 100 mls/hr Acyclovir 500 mg/ Sodium (Chloride) 100 mls @ 100 mls/hr IV 0600 [facility]; Protocol Last Admin: 01/15/19 05:31 Dose: 100 mls/hr Levetiracetam (Keppra 500mg Ivpb) 500 mg in 100 mls @ 400 mls/hr IVPB BID [facility] Last Admin: 01/14/19 18:25 Dose: 400 mls/hr Phenytoin 100 mg/ Sodium (Chloride) 52 mls @ 104 mls/hr IVPB Q8 [facility] Last Admin: 01/15/19 05:31 Dose: 104 mls/hr Isosorbide Mononitrate (Imdur Er) 30 mg PO DAILY [facility] Last Admin: 01/14/19 11:06 Dose: 30 mg Losartan Potassium (Cozaar) 100 mg PO DAILY [facility] Metoprolol Tartrate (Lopressor) 75 mg PO BID [facility] Last Admin: 01/14/19 18:28 Dose: 75 mg Midazolam HCl (Versed Inj) 2 mg IVP Q4 PRN PRN Reason: Agitation Pantoprazole Sodium (Protonix Ec Tab) 40 mg PO ACB [facility] Last Admin: 01/14/19 11:10 Dose: 40 mg Polyethylene Glycol (Miralax) 17 gm PO DAILY PRN PRN Reason: Constipation Last Admin: 01/14/19 16:39 Dose: 17 gm Prednisone (Prednisone Tab) 10 mg PO BID [facility] Last Admin: 01/14/19 18:29 Dose: 10 mg - Labs Labs: 01/13/19 08:50 01/13/19 08:50 - Constitutional Appears: Non-toxic, No Acute Distress - Head Exam Head Exam: NORMAL INSPECTION, NORMOCEPHALIC - ENT Exam ENT Exam: Mucous Membranes Dry - Respiratory Exam Respiratory Exam: Decreased Breath Sounds, Clear to Ausculation Bilateral, NORMAL BREATHING PATTERN - Cardiovascular Exam Cardiovascular Exam: REGULAR RHYTHM, +S1, +S2 Additional comments: right chest permacath - GI/Abdominal Exam GI & Abdominal Exam: Soft, Normal Bowel Sounds - Neurological Exam Additional comments: lethatgic but open eyes to name calling and answers simple questions appropriately - Skin Skin Exam: Dry, Normal Color, Warm Assessment and Plan - Assessment and Plan (Free Text) Assessment: A 68 year old female who was admitted to the ER due to altered mental status and acute renal injury. 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 Positive troponin on admission secondary to renal insufficiency/injury. Echo done on 11/08/18 showed LVEF 56%, moderate MR, mild TR. Neuro on consult. Renal on consult. Brain MRI showed herpes enchephalitis. ID on consult. Continue IV antibiotics. On hemodialysis 3 x a week (TTS). Repeat MRI final report showed unchanged herpes enchephalitis. Cardiac status stable. Seizure precaution. For hemodialysis today. Lethargic but arousable. Plan: No distress, lethargic but arousable Heart rate stable Blood pressure stable Cardiac status stable On ASA 81 mg daily, Catapres 0.2 mg TID, Cardizem 60 mg TID Hydralazine 50 mg BID, Imdur ER 30 mg daily, Cozaar 100 mg daily, Lopressor 75 mg BID, Prednisone 10 mg every PM and 20 mg every AM Continue IV antibiotics per ID Neuro and Renal on consult Continue current treatment Continue current medications For hemodialysis today Seizure precaution Supportive care Will follow up Plan and treatment discussed with Dr. Sprague
[2019-01-15] MEDS: Pantoprazole 40 mg EC Tab PO SCH (08:43)
--- NOTE | 2019-01-15 09:11 | PCM.VEEG ---
Video EEG - Procedure Start Date: 01/14/19 Start Time: 14:15 End Date: 01/15/19 End Time: 08:30 Technical Summary: DATA ACQUISITION: This was a multichannel inpatient video-EEG, a minimum of 22 channels were uti lized, performed in accordance with recommendations specified by the [place] [employer] (Meaghan Andrade et al. ACNS Guideline 1: Minimum Technical Requirements for Performing Clinical Electroencephalography. Journal of Clinical Neurophysiology 2016;33:303-7). The 10-20 electrode placement system was utilized in accordance with guidelines detailed by the International Federation of Clinical Neurophysiology (Tiesha Severino et al. The Ten-Twenty Electrode System of the International Federation. Recommendations for the Practice of Clinical Neurophysiology: Guidelines of the International Federation of Clinical Physiology 1999; EEG Suppl. 52.). DATA REVIEW / SPIKE DETECTION / DIGITAL ANALYSIS: The entire EEG was scanned and reviewed. Synchronized audio and video recording were reviewed at the time of each alarm and whenever an abnormality or suspicious activity was noted. The entire recording was analyzed utilizing an automated digital spike and seizure analysis program and all automatic spike and seizure detections were manually reviewed. A compressed spectral array was displayed and reviewed alongside the raw EEG tracings. In addition, further analysis of the EEG was performed when abnormalities were identified, including montage changes, dipole source localization, and frequency band identification. Video portion of the study is necessary to correlate abnormal EEG activity with clinical behavior. This study was attended 24 hours per day. . - Interpretation Description of the study: 68 y/o woman with new onset alter mental status, working diagnosis encephalitis and status epilepticus/subclinical seizures EEG Finding during wakefulness: . During active states, the EEG was characterized by 10-15 Hz, 15-30 uV activity bilaterally in fronto-central regions, Resting wakefulness was characterized by an attenuated and asymmetric posterior dominant rhythm of 6 Hz, 30-50 uV, , which was reactive to eye opening and closing. Drowsiness was associated with slow roving eye movements, slowing and fragmentation of the posterior dominant rhythm, and bilateral 4-7 Hz, 40-70 uV theta activity, sometimes with a shifting predominance. EEG Finding during sleep: Light sleep was recorded and was characterized by fronto-central slowing at 5-7 H, 50-125 uV, sharp central vertex waves, bilateral sleep spindles, and K- complexes; shifting asymmetries were evident, but typical sleep architecture was more evident on the left. Deeper stages of sleep were recorded and were characterized an increasing frequency of 1-4 Hz, 50-100 uV delta activity Interictal non-epileptiform abnormalities: None Interictal epileptiform abnormalities: There were rare sharp waves and spikes in the right temporal area, max at T4, occurring in isolation. They were rare sharp waves seen on the left anterior temporal region F7. Ictal epileptiform abnormalities: No seizures. - Impression Impression: This is an abnormal video-EEG monitoring study due to the presence of 1- Mild background slowing. . 2- Interictal epileptiform discharges seen in both temporal regions right and left independently. 3- Mild background slowing No seizures seen, not in status epilepticus. 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 In this particular case, since patient seems to have an acute encephalitis, the interictal discharges predispose her to have clinical seizures. Lastly the findings are in keeping with a mild non specific diffuse disturbance of cortical activity, in keeping with a diffuse montoya matter dysfunction. Findings are similar to the previous VEEG of to 01/10
--- NOTE | 2019-01-15 10:13 | CP.PCM.PN ---
<Eliel Cheek - Last Filed: 01/15/19 17:22> Subjective - Date & Time of Evaluation Date of Evaluation: 01/15/19 Time of Evaluation: 06:00 - Subjective Subjective: Patient seen and examined bedside. no acute issues overnight. Patient seems slightly more lethargic since yesterday. Denies any complaints, answering questions appropriately and still states she is tired. Objective - Vital Signs/Intake and Output Vital Signs (last 24 hours): Temp Pulse Resp BP Pulse Ox 98.1 F 60 18 161/81 H 97 01/15/19 06:00 01/15/19 06:00 01/15/19 06:00 01/15/19 06:00 01/15/19 06:00 Intake and Output: 01/15/19 01/15/19 06:59 18:59 Intake Total 900 0 Output Total 0 Balance 900 0 - Medications Medications: Current Medications Armodafinil (Nuvigil 150 Mg Tab) 150 mg PO DAILY [facility] Last Admin: 01/14/19 11:10 Dose: 150 mg Clonidine HCl (Catapres) 0.1 mg PO Q4H PRN PRN Reason: hypertension Last Admin: 01/14/19 06:01 Dose: 0.1 mg Clonidine HCl (Catapres) 0.1 mg PO BID [facility] Last Admin: 01/14/19 18:25 Dose: 0.1 mg Diltiazem HCl (Cardizem) 60 mg PO TID [facility] Last Admin: 01/14/19 18:24 Dose: 60 mg Hydralazine HCl (Apresoline) 50 mg PO BID [facility] Last Admin: 01/08/19 18:35 Dose: Not Given Acyclovir 500 mg/ Sodium (Chloride) 100 mls @ 100 mls/hr IV TuThSa@1300 [facility]; Protocol Last Admin: 01/13/19 14:57 Dose: 100 mls/hr Acyclovir 500 mg/ Sodium (Chloride) 100 mls @ 100 mls/hr IV 0600 [facility]; Protocol Last Admin: 01/15/19 05:31 Dose: 100 mls/hr Levetiracetam (Keppra 500mg Ivpb) 500 mg in 100 mls @ 400 mls/hr IVPB BID [facility] Last Admin: 01/14/19 18:25 Dose: 400 mls/hr Phenytoin 100 mg/ Sodium (Chloride) 52 mls @ 104 mls/hr IVPB Q8 [facility] Last Admin: 01/15/19 05:31 Dose: 104 mls/hr Isosorbide Mononitrate (Imdur Er) 30 mg PO DAILY [facility] Last Admin: 01/14/19 11:06 Dose: 30 mg Losartan Potassium (Cozaar) 100 mg PO DAILY [facility] Metoprolol Tartrate (Lopressor) 75 mg PO BID [facility] Last Admin: 01/14/19 18:28 Dose: 75 mg Pantoprazole Sodium (Protonix Ec Tab) 40 mg PO ACB [facility] Last Admin: 01/15/19 08:43 Dose: 40 mg Polyethylene Glycol (Miralax) 17 gm PO DAILY PRN PRN Reason: Constipation Last Admin: 01/14/19 16:39 Dose: 17 gm Prednisone (Prednisone Tab) 10 mg PO BID [facility] Last Admin: 01/14/19 18:29 Dose: 10 mg - Labs Labs: 01/13/19 08:50 01/13/19 08:50 - Constitutional Appears: No Acute Distress - Head Exam Head Exam: ATRAUMATIC, NORMAL INSPECTION, NORMOCEPHALIC - Eye Exam Eye Exam: EOMI, Normal appearance - ENT Exam ENT Exam: Mucous Membranes Moist - Respiratory Exam Respiratory Exam: Clear to Ausculation Bilateral, NORMAL BREATHING PATTERN - Cardiovascular Exam Cardiovascular Exam: REGULAR RHYTHM, +S1, +S2 - Extremities Exam Extremities Exam: absent: Pedal Edema - Neurological Exam Neurological Exam: Alert, Awake Neuro motor strength exam: Left Upper Extremity: 5, Right Upper Extremity: 5, Left Lower Extremity: 5, Right Lower Extremity: 5 Assessment and Plan - Assessment and Plan (Free Text) Assessment: 68 yr old woman with encephalitis, herpes most likely, continuing to have interictal sharp waves, that are indicative of predisposition for epilepsy. Plan: Herpes Encephalitis with subclinical seizures - acyclovir - keppra 500 BID - dilantin 100mg TID - extra dose dilantin 500mg given due to sub therapeutic level - armodafinil 150 daily - VEE- Mild background slowing 2- Interictal epileptiform discharges seen in both temporal regions right and left independently. 3 Mild background slowing No seizures seen, not in status epilepticus. 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 In this particular case, since patient seems to have an acute encephalitis, the interictal discharges predispose her to have clinical seizures . Lastly the findings are in keeping with a mild non specific diffuse disturbance of cortical activity, in keeping with a diffuse montoya matter dysfunction.Findings are similar to the previous VEEG of to 01/10 - Physical therapy - MRI Brain showed: There is restricted diffusion as well as abnormal FLAIR and T2 signal throughout the right temporal lobe which extends posteriorly along the medial temporal lobe into the cingulate gyrus adjacent to the splenium of the corpus callosum. There is also involvement of the right insular cortex. Abnormalities are also seen in the left anterior and medial temporal lobe. The findings are unchanged. Findings are consistent with herpes encephalitis. - continue to monitor mental status <Tobi Orellana - Last Filed: 01/16/19 16:36> Objective - Vital Signs/Intake and Output Vital Signs (last 24 hours): Temp Pulse Resp BP Pulse Ox 97 F L 79 18 153/79 H 97 01/16/19 16:30 01/16/19 16:30 01/16/19 16:30 01/16/19 16:30 01/16/19 16:30 Intake and Output: 01/16/19 01/16/19 06:59 18:59 Intake Total 1340 Output Total 1150 Balance 190 - Medications Medications: Current Medications Armodafinil (Nuvigil 150 Mg Tab) 150 mg PO DAILY [facility] Last Admin: 01/16/19 09:18 Dose: 150 mg Clonidine HCl (Catapres) 0.1 mg PO Q4H PRN PRN Reason: hypertension Last Admin: 01/14/19 06:01 Dose: 0.1 mg Clonidine HCl (Catapres) 0.1 mg PO DAILY [facility] Diltiazem HCl (Cardizem) 60 mg PO TID [facility] Last Admin: 01/16/19 13:57 Dose: 60 mg Hydralazine HCl (Apresoline) 50 mg PO BID [facility] Last Admin: 01/08/19 18:35 Dose: Not Given Hydralazine HCl (Apresoline) 50 mg PO BID [facility] Last Admin: 01/16/19 13:57 Dose: 50 mg Levetiracetam (Keppra 500mg Ivpb) 500 mg in 100 mls @ 400 mls/hr IVPB BID [facility] Stop: 01/16/19 23:00 Last Admin: 01/16/19 09:18 Dose: 400 mls/hr Acyclovir 500 mg/ Sodium (Chloride) 100 mls @ 100 mls/hr IV Q24H [facility]; Protocol Stop: 02/06/19 08:46 Last Admin: 01/16/19 10:56 Dose: 100 mls/hr Acyclovir 500 mg/ Sodium (Chloride) 100 mls @ 100 mls/hr IV TTS [facility]; Protocol Phenytoin 100 mg/ Sodium (Chloride) 52 mls @ 104 mls/hr IVPB ONCE ONE Stop: 01/16/19 22:29 Isosorbide Mononitrate (Imdur Er) 30 mg PO DAILY [facility] Last Admin: 01/16/19 09:18 Dose: 30 mg Levetiracetam (Keppra) 500 mg PO BID [facility] Losartan Potassium (Cozaar) 100 mg PO DAILY [facility] Last Admin: 01/16/19 09:18 Dose: 100 mg Metoprolol Tartrate (Lopressor) 75 mg PO BID [facility] Last Admin: 01/16/19 09:18 Dose: 75 mg Pantoprazole Sodium (Protonix Ec Tab) 40 mg PO ACB [facility] Last Admin: 01/16/19 09:18 Dose: 40 mg Phenytoin Sodium (Dilantin) 100 mg PO TID [facility] Polyethylene Glycol (Miralax) 17 gm PO DAILY PRN PRN Reason: Constipation Last Admin: 01/16/19 09:28 Dose: 17 gm Prednisone (Prednisone Tab) 10 mg PO BID [facility] Last Admin: 01/16/19 09:17 Dose: 10 mg - Labs Labs: 01/15/19 10:20 01/15/19 10:20 PT 10.6 SECONDS (9.4-12.5) 01/15/19 10:20 INR 0.94 01/15/19 10:20 APTT 25.6 Seconds (26.9-38.3) L 01/15/19 10:20 Attending/Attestation - Attestation I have personally seen and examined this patient.: Yes I have fully participated in the care of the patient.: Yes I have reviewed all pertinent clinical information, including history, physical exam and plan: Yes Notes (Text): i agree with the assessment and plan. Will give an extra 500 mg dilantin dose since the patient was subtherapeutic.
[2019-01-15 10:45] LABS: BASO # 0.02 K/mm3 (0.0-2.0); BASO % 0.3 % (0.0-3.0); HEMOGLOBIN 8.6 g/dL (12.0-16.0); LYMPH # 0.9 (1.2-3.4); LYMPH % 13.1 % (22.0-35.0); MEAN CELL VOLUME 98.5 fl (80.0-105.0); MEAN CORPUSCULAR HEMOGLOBIN 32.7 pg (25.0-35.0); MEAN CORPUSCULAR HGB CONC 33.2 g/dl (31.0-37.0); MEAN PLATELET VOLUME 10.9 fl (7.0-11.0); MONO # 0.4 (0.1-0.6); MONO % 5.2 % (1.0-6.0); RBC 2.63 10^6/uL (3.5-6.1); RED CELL DISTRIBUTION WIDTH 19.6 % (11.5-14.5); WHITE BLOOD COUNT 7.1 10^3/uL (4.5-11.0)
[2019-01-15 10:49] LABS: INR 0.94; PARTIAL THROMBOPLASTIN TIME 25.6 Seconds (26.9-38.3); PROTHROMBIN TIME 10.6 SECONDS (9.4-12.5)
[2019-01-15 10:54] LABS: ALBUMIN 2.5 g/dL (3.0-4.8); CALCIUM 8.1 mg/dL (8.4-10.5)
[2019-01-15] MEDS: levETIRAcetam 500mg IVPB 500 MG/100 ML BAG IVPB SCH ×2 (13:42→17:55)
[2019-01-15] MEDS: POLYETHYLENE GLYCOL 3350 17 GM/Dose PACKET PO PRN (13:42)
[2019-01-15] MEDS ORDERED: Phenytoin 250 mg/5 ml Inj IVP ONE (14:54)
[2019-01-15] MEDS ORDERED: Phenytoin 500 MG in Sodium Chloride 0.9% 100 ML IVPB ONE (15:30)
--- NOTE | 2019-01-15 21:35 | CP.PCM.PN ---
Subjective - Date & Time of Evaluation Date of Evaluation: 01/15/19 Time of Evaluation: 06:45 - Subjective Subjective: As per the boyfriend, patient had episodes of responding to commands yesterday, this morning, still somnolent, on EEG monitoring. No fevers overnight. Objective - Vital Signs/Intake and Output Vital Signs (last 24 hours): Temp Pulse Resp BP Pulse Ox 97.9 F 72 20 166/81 H 98 01/14/19 06:00 01/14/19 18:28 01/14/19 06:00 01/14/19 18:28 01/14/19 06:00 Intake and Output: 01/14/19 01/15/19 18:59 06:59 Intake Total 240 Output Total 0 Balance 240 - Medications Medications: Current Medications Armodafinil (Nuvigil 150 Mg Tab) 150 mg PO DAILY [facility] Last Admin: 01/14/19 11:10 Dose: 150 mg Clonidine HCl (Catapres) 0.1 mg PO Q4H PRN PRN Reason: hypertension Last Admin: 01/14/19 06:01 Dose: 0.1 mg Clonidine HCl (Catapres) 0.1 mg PO BID [facility] Last Admin: 01/14/19 18:25 Dose: 0.1 mg Diltiazem HCl (Cardizem) 60 mg PO TID [facility] Last Admin: 01/14/19 18:24 Dose: 60 mg Hydralazine HCl (Apresoline) 50 mg PO BID [facility] Last Admin: 01/08/19 18:35 Dose: Not Given Acyclovir 500 mg/ Sodium (Chloride) 100 mls @ 100 mls/hr IV TuThSa@1300 [facility]; Protocol Last Admin: 01/13/19 14:57 Dose: 100 mls/hr Acyclovir 500 mg/ Sodium (Chloride) 100 mls @ 100 mls/hr IV 0600 [facility]; Protocol Last Admin: 01/14/19 05:13 Dose: 100 mls/hr Levetiracetam (Keppra 500mg Ivpb) 500 mg in 100 mls @ 400 mls/hr IVPB BID [facility] Last Admin: 01/14/19 18:25 Dose: 400 mls/hr Phenytoin 100 mg/ Sodium (Chloride) 52 mls @ 104 mls/hr IVPB Q8 [facility] Last Admin: 01/14/19 15:44 Dose: 104 mls/hr Isosorbide Mononitrate (Imdur Er) 30 mg PO DAILY [facility] Last Admin: 01/14/19 11:06 Dose: 30 mg Metoprolol Tartrate (Lopressor) 75 mg PO BID [facility] Last Admin: 01/14/19 18:28 Dose: 75 mg Midazolam HCl (Versed Inj) 2 mg IVP Q4 PRN PRN Reason: Agitation Pantoprazole Sodium (Protonix Ec Tab) 40 mg PO ACB [facility] Last Admin: 01/14/19 11:10 Dose: 40 mg Polyethylene Glycol (Miralax) 17 gm PO DAILY PRN PRN Reason: Constipation Last Admin: 01/14/19 16:39 Dose: 17 gm Prednisone (Prednisone Tab) 10 mg PO BID [facility] Last Admin: 01/14/19 18:29 Dose: 10 mg - Labs Labs: 01/13/19 08:50 01/13/19 08:50 - Constitutional Appears: Chronically Ill, Other (somnolent) - Head Exam Additional comments: dressings and electrodes in place - Respiratory Exam Respiratory Exam: Decreased Breath Sounds - Cardiovascular Exam Cardiovascular Exam: +S1, +S2 - GI/Abdominal Exam GI & Abdominal Exam: Soft. 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
--- NOTE | 2019-01-15 23:52 | PN ---
DATE: 01/15/2019 SUBJECTIVE: The patient is seen lying in bed. She is groggy. She is arousable. She is a little more lethargic compared to yesterday. is at the bedside. PHYSICAL EXAMINATION: GENERAL: An elderly lady lying in bed. VITAL SIGNS: Blood pressure 1 8/85, heart rate 83, respiratory rate 16, temperature 98.2. HEENT: Normocephalic, atraumatic. Positive pallor. NECK: Supple. No JVD. LUNGS: Bilateral equal air entry, bilateral equal expansion. CARDIAC: S1 and S2, regular rate and rhythm. No murmur. No rub. ABDOMEN: Obese, distended, soft, nontender, bowel sounds present. EXTREMITIES: No lower extremity edema. LABORATORY DATA: WBC 7.1, hemoglobin 8.6, hematocrit 26, platelets 156. Sodium 135, potassium 4.5, chloride 102, CO2 of 25, BUN 75, creatinine 3.3, glucose 123, calcium 8.1. CURRENT MEDICATIONS: Acyclovir 500 mg daily and 500 mg after every dialysis, Apresoline 50 mg b.i.d., Cardizem 60 mg t.i.d., Catapres 0.1 mg b.i.d., losartan 100 mg, Imdur 30 mg, Keppra 500 mg b.i.d., Lopressor 75 mg b.i.d., MiraLax, phenytoin 100 mg every 8 hours, prednisone 10 mg b.i.d. ASSESSMENT: 1. Herpes encephalitis. 2. Temporal seizures, still persistent. 3. Severe hypertension. 4. Recurrent pauci-immune glomerulonephritis, remains dialysis-dependent. 5. Hyperphosphatemia. PLAN: 1. Stable dialysis today. 2. Now on Keppra and phenytoin. 3. Continue acyclovir as per ID recommendations. 4. Continue current antihypertensives. 5. Continue to follow closely. Monserrat French MD
[2019-01-16] MEDS: Acyclovir 500 MG in Sodium Chloride 0.9% 100 ML IV SCH (05:40)
--- NOTE | 2019-01-16 06:38 | CP.PCM.PN ---
Subjective - Date & Time of Evaluation Date of Evaluation: 01/16/19 Time of Evaluation: 06:35 - Subjective Subjective: Lying in bed, no distress, awake, alert, responds to questions Reason for consultation and follow up: Cardiac evaluation of elevated troponin, acute kidney injury,ruled out myocardial ischemia, admitted with altered mental status, positive for herpes encephalitis Seen and examined by me and Dr. Sprague Objective - Vital Signs/Intake and Output Vital Signs (last 24 hours): Temp Pulse Resp BP Pulse Ox 98.2 F 81 16 168/85 H 98 01/15/19 16:45 01/16/19 06:00 01/15/19 16:45 01/15/19 17:54 01/15/19 16:45 Intake and Output: 01/15/19 01/16/19 18:59 06:59 Intake Total 0 1340 Output Total 0 1000 Balance 0 340 - Medications Medications: Current Medications Armodafinil (Nuvigil 150 Mg Tab) 150 mg PO DAILY [facility] Last Admin: 01/15/19 13:42 Dose: 150 mg Clonidine HCl (Catapres) 0.1 mg PO Q4H PRN PRN Reason: hypertension Last Admin: 01/14/19 06:01 Dose: 0.1 mg Clonidine HCl (Catapres) 0.1 mg PO BID [facility] Last Admin: 01/15/19 17:53 Dose: 0.1 mg Diltiazem HCl (Cardizem) 60 mg PO TID [facility] Last Admin: 01/15/19 17:54 Dose: 60 mg Hydralazine HCl (Apresoline) 50 mg PO BID [facility] Last Admin: 01/08/19 18:35 Dose: Not Given Levetiracetam (Keppra 500mg Ivpb) 500 mg in 100 mls @ 400 mls/hr IVPB BID [facility] Last Admin: 01/15/19 17:55 Dose: 400 mls/hr Phenytoin 100 mg/ Sodium (Chloride) 52 mls @ 104 mls/hr IVPB Q8 [facility] Last Admin: 01/16/19 05:40 Dose: 104 mls/hr Isosorbide Mononitrate (Imdur Er) 30 mg PO DAILY [facility] Last Admin: 01/15/19 13:42 Dose: 30 mg Losartan Potassium (Cozaar) 100 mg PO DAILY [facility] Last Admin: 01/15/19 13:41 Dose: 100 mg Metoprolol Tartrate (Lopressor) 75 mg PO BID [facility] Last Admin: 01/15/19 17:53 Dose: 75 mg Pantoprazole Sodium (Protonix Ec Tab) 40 mg PO ACB [facility] Last Admin: 01/15/19 08:43 Dose: 40 mg Polyethylene Glycol (Miralax) 17 gm PO DAILY PRN PRN Reason: Constipation Last Admin: 01/15/19 13:42 Dose: 17 gm Prednisone (Prednisone Tab) 10 mg PO BID [facility] Last Admin: 01/15/19 17:53 Dose: 10 mg - Labs Labs: 01/15/19 10:20 01/15/19 10:20 PT 10.6 SECONDS (9.4-12.5) 01/15/19 10:20 INR 0.94 01/15/19 10:20 APTT 25.6 Seconds (26.9-38.3) L 01/15/19 10:20 - Constitutional Appears: Non-toxic, No Acute Distress - Head Exam Head Exam: NORMAL INSPECTION, NORMOCEPHALIC - Eye Exam Eye Exam: Normal appearance Pupil Exam: NORMAL ACCOMODATION - ENT Exam ENT Exam: Mucous Membranes Dry - Respiratory Exam Respiratory Exam: Decreased Breath Sounds, Clear to Ausculation Bilateral, NORMAL BREATHING PATTERN - Cardiovascular Exam Cardiovascular Exam: +S1, +S2 Additional comments: right chest permacath - GI/Abdominal Exam GI & Abdominal Exam: Soft, Normal Bowel Sounds - Extremities Exam Extremities Exam: Full ROM, Normal Capillary Refill - Neurological Exam Neurological Exam: Alert, Awake - Psychiatric Exam Psychiatric exam: Normal Affect, Normal Mood - Skin Skin Exam: Dry, Normal Color, Warm Assessment and Plan - Assessment and Plan (Free Text) Assessment: A 68 year old female who was admitted to the ER due to altered mental status and acute renal injury. 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 Positive troponin on admission secondary to renal insufficiency/injury. Echo done on 11/08/18 showed LVEF 56%, moderate MR, mild TR. Neuro on consult. Renal on consult. Brain MRI showed herpes enchephalitis. ID on consult. Continue IV antibiotics. On hemodialysis 3 x a week (TTS). Repeat MRI final report showed unchanged herpes enchephalitis. Cardiac status stable.No further cardiac work up. Seizure precaution. Had hemodialysis yesterday and pulled 1500cc fluid. Awake and alert. Plan: No distress, awake,alert Cardiac status stable Heart rate stable Blood pressure stable On ASA 81 mg daily, Catapres 0.2 mg TID, Cardizem 60 mg TID Hydralazine 50 mg BID, Imdur ER 30 mg daily, Cozaar 100 mg daily, Lopressor 75 mg BID, Prednisone 10 mg every PM and 20 mg every AM Continue IV antibiotics per ID Continue current treatment Continue current medications Had hemodialysis yesterday, pulled 1.5 liters fluid Seizure precaution Supportive care Nutritional support Will follow up Plan and treatment discussed with Dr. Sprague
[2019-01-16] MEDS ORDERED: Acyclovir 500 MG in Sodium Chloride 0.9% 100 ML IV SCH (08:45)
[2019-01-16] MEDS: levETIRAcetam 500mg IVPB 500 MG/100 ML BAG IVPB SCH ×2 (09:18→17:30)
[2019-01-16] MEDS: Pantoprazole 40 mg EC Tab PO SCH (09:18)
[2019-01-16] MEDS: POLYETHYLENE GLYCOL 3350 17 GM/Dose PACKET PO PRN (09:28)
--- NOTE | 2019-01-16 09:31 | PN ---
DATE: 01/16/2019 SUBJECTIVE: The patient is seen this morning in room 362, bed 2. No fevers and no chills. No nausea. PHYSICAL EXAMINATION VITAL SIGNS: On exam, temperature is 98, blood pressure is 160/80, respiratory rate of 18 and heart rate of 83. HEENT: Unremarkable. NECK: Supple. LUNGS: Have decreased breath sounds. HEART: Normal S1 and S2. ABDOMEN: Soft. LABORATORY EXAMINATION: Reveals the patient's white count is 7.1 and hemoglobin of 8.6. Chemistries are noted. BUN of 75 and creatinine of 3.3. Procalcitonin is noted. Microbiology is reviewed. ASSESSMENT AND PLAN: This is a 68-year-old female admitted with sepsis with HSV 2 encephalitis and the patient with a history of end-stage renal disease on hemodialysis, granulomatous polyangiitis, history of breast cancer, hypertension on acyclovir day #19 of 21 days and review of orders reveals the dropped acyclovir. We will give a dose today. Should receive a dose after dialysis. Review of the medications reveals the acyclovir was dropped yesterday and today is unclear if the patient received the 6 o'clock dose. Ramana Haywood MD
[2019-01-16] MEDS ORDERED: Bisacodyl 5mg EC Tab PO ONE (11:31)
--- NOTE | 2019-01-16 15:09 | PN ---
DATE: 01/16/2019 SUBJECTIVE: The patient is seen lying in bed. She is very groggy, barely opening her eyes right now, but earlier she was awake and alert, and talkative to her . PHYSICAL EXAMINATION: GENERAL: Elderly lady lying in bed. VITAL SIGNS: Blood pressure 168/84, heart rate 75, respiratory rate 20, and temperature 97.2. HEENT: Normocephalic, atraumatic, positive pallor. NECK: Supple, no JVD. LUNGS: Bilateral equal air entry, bilateral equal expansion. CARDIAC: S1 and S2, regular rate and rhythm, no murmur, no rub. ABDOMEN: Distended, soft, nontender, bowel sounds present. EXTREMITIES: No lower extremity edema. Intake and output 1000 removed on dialysis yesterday. LABORATORY DATA: WBC 7.1, hemoglobin 8.6, hematocrit 26, and platelets 156. Potassium 4.5, BUN 75, and creatinine 3.3. CURRENT MEDICATIONS: Acyclovir 500 mg daily and additional 500 mg after each dialysis, Apresoline 50 b.i.d., Cardizem 600 t.i.d., clonidine 0.1 b.i.d., losartan 100 daily, isosorbide 30 mg, Keppra 500 every 12 hours, Lopressor 75 b.i.d., MiraLax 17 g, Nuvigil 150, 100 every 8 hours, prednisone 10 b.i.d., and Protonix 40. ASSESSMENT: 1. Herpes encephalitis. 2. Persistent bitemporal seizures. 3. Waxing and waning sensorium. 4. Severe hypertension. 5. Acute kidney injury, remains dialysis dependent. 6. Recurrent pauci-immune glomerulonephritis, status post plasmapheresis, intravenous prednisone, Cytoxan, and rituximab. PLAN: 1. Dialysis tomorrow. 2. Restart hydralazine 50 b.i.d. 3. Change clonidine to 0.1 mg daily. 4. Continue prednisone 10 mg b.i.d. 5. Continue Keppra and Dilantin. 6. Continue acyclovir. 7. Dulcolax for constipation. Monserrat French MD
--- NOTE | 2019-01-16 15:40 | PN ---
DATE: 01/16/2019 SUBJECTIVE: The patient is a 68-year-old female who was admitted on 12/27/2018 to the [facility] with lethargy and mental status changes. She is known to have a history of Daphnie's granulomatosis and she has been on dialysis for this for about the past 3 months. She had some bursts of SVT during the hospital stay which were treated with beta-blockers. She is being followed by Dr. Haywood, the Infectious Disease specialist, Dr. Calvert, the office services manager, Dr. Randall, the personal care home administrator. After dialysis during the hospital stay, she had a tonic clonic seizure, workup including lumbar puncture, CAT scan and MRI suggested herpes encephalitis. The patient had been treated with acyclovir 500 mg every 24 hours plus 500 mg after H dialysis treatment and this was to continue for 21 days. Today is day 19 out of 21 for the acyclovir. When seen today, her significant other is at bedside as he has been through her entire hospital stay, the patient seemed slightly more awake today. OBJECTIVE: VITAL SIGNS: She is afebrile. Blood pressure is 168/84, heart rate is 75 beats per minute. LUNGS: Clear anteriorly. HEART: Regular. EEG done few days ago showed rare bilateral spikes which are considered potentially epileptogenic. Blood work has been drawn to check a Dilantin level and if therapeutic, we will be able to discontinue the Keppra which she is receiving 500 mg twice a day, it is felt the Keppra is causing degree of somnolence and lethargy in the patient. We are continuing also with her Cardizem, Cozaar, isosorbide, Lopressor, hydralazine, Catapres. The patient is scheduled to have dialysis tomorrow again and she will be reevaluated in the morning. Mars Webb MD
--- NOTE | 2019-01-16 15:45 | CP.PCM.PN ---
<Elile Cheek - Last Filed: 01/16/19 15:40> Subjective - Date & Time of Evaluation Date of Evaluation: 01/16/19 Time of Evaluation: 15:42 - Subjective Subjective: Patient seen and evaluated bedside. No acute issues, patient more alert today, talking well and states she is doing better. Patient denies any complaints. Objective - Vital Signs/Intake and Output Vital Signs (last 24 hours): Temp Pulse Resp BP Pulse Ox 97.2 F L 75 20 147/79 96 01/16/19 06:00 01/16/19 06:00 01/16/19 06:00 01/16/19 13:57 01/16/19 06:00 Intake and Output: 01/16/19 01/16/19 06:59 18:59 Intake Total 1340 Output Total 1150 Balance 190 - Medications Medications: Current Medications Armodafinil (Nuvigil 150 Mg Tab) 150 mg PO DAILY [facility] Last Admin: 01/16/19 09:18 Dose: 150 mg Clonidine HCl (Catapres) 0.1 mg PO Q4H PRN PRN Reason: hypertension Last Admin: 01/14/19 06:01 Dose: 0.1 mg Clonidine HCl (Catapres) 0.1 mg PO DAILY [facility] Diltiazem HCl (Cardizem) 60 mg PO TID [facility] Last Admin: 01/16/19 13:57 Dose: 60 mg Hydralazine HCl (Apresoline) 50 mg PO BID [facility] Last Admin: 01/08/19 18:35 Dose: Not Given Hydralazine HCl (Apresoline) 50 mg PO BID [facility] Last Admin: 01/16/19 13:57 Dose: 50 mg Levetiracetam (Keppra 500mg Ivpb) 500 mg in 100 mls @ 400 mls/hr IVPB BID [facility] Last Admin: 01/16/19 09:18 Dose: 400 mls/hr Phenytoin 100 mg/ Sodium (Chloride) 52 mls @ 104 mls/hr IVPB Q8 [facility] Last Admin: 01/16/19 13:58 Dose: 104 mls/hr Acyclovir 500 mg/ Sodium (Chloride) 100 mls @ 100 mls/hr IV Q24H [facility]; Protocol Stop: 02/06/19 08:46 Last Admin: 01/16/19 10:56 Dose: 100 mls/hr Acyclovir 500 mg/ Sodium (Chloride) 100 mls @ 100 mls/hr IV TTS [facility]; Protocol Isosorbide Mononitrate (Imdur Er) 30 mg PO DAILY [facility] Last Admin: 01/16/19 09:18 Dose: 30 mg Losartan Potassium (Cozaar) 100 mg PO DAILY [facility] Last Admin: 01/16/19 09:18 Dose: 100 mg Metoprolol Tartrate (Lopressor) 75 mg PO BID [facility] Last Admin: 01/16/19 09:18 Dose: 75 mg Pantoprazole Sodium (Protonix Ec Tab) 40 mg PO ACB [facility] Last Admin: 01/16/19 09:18 Dose: 40 mg Polyethylene Glycol (Miralax) 17 gm PO DAILY PRN PRN Reason: Constipation Last Admin: 01/16/19 09:28 Dose: 17 gm Prednisone (Prednisone Tab) 10 mg PO BID [facility] Last Admin: 01/16/19 09:17 Dose: 10 mg - Labs Labs: 01/15/19 10:20 01/15/19 10:20 PT 10.6 SECONDS (9.4-12.5) 01/15/19 10:20 INR 0.94 01/15/19 10:20 APTT 25.6 Seconds (26.9-38.3) L 01/15/19 10:20 - Constitutional Appears: Non-toxic, No Acute Distress - Head Exam Head Exam: ATRAUMATIC, NORMAL INSPECTION, NORMOCEPHALIC - Eye Exam Eye Exam: EOMI, Normal appearance - ENT Exam ENT Exam: Mucous Membranes Moist - Respiratory Exam Respiratory Exam: Clear to Ausculation Bilateral, NORMAL BREATHING PATTERN - Neurological Exam Neurological Exam: Alert, Awake, Oriented x3 Neuro motor strength exam: Left Upper Extremity: 5, Right Upper Extremity: 5, Left Lower Extremity: 5, Right Lower Extremity: 5 Assessment and Plan - Assessment and Plan (Free Text) Plan: Herpes Encephalitis with subclinical seizures - improving - continue acyclovir - continue keppra 500 BID - continue dilantin 100mg TID - dilantin level was 12 today <Tobi Orellana - Last Filed: 01/16/19 16:20> Objective - Vital Signs/Intake and Output Vital Signs (last 24 hours): Temp Pulse Resp BP Pulse Ox 97.2 F L 89 20 147/79 96 01/16/19 06:00 01/16/19 10:00 01/16/19 06:00 01/16/19 13:57 01/16/19 06:00 Intake and Output: 01/16/19 01/16/19 06:59 18:59 Intake Total 1340 Output Total 1150 Balance 190 - Medications Medications: Current Medications Armodafinil (Nuvigil 150 Mg Tab) 150 mg PO DAILY [facility] Last Admin: 01/16/19 09:18 Dose: 150 mg Clonidine HCl (Catapres) 0.1 mg PO Q4H PRN PRN Reason: hypertension Last Admin: 01/14/19 06:01 Dose: 0.1 mg Clonidine HCl (Catapres) 0.1 mg PO DAILY [facility] Diltiazem HCl (Cardizem) 60 mg PO TID [facility] Last Admin: 01/16/19 13:57 Dose: 60 mg Hydralazine HCl (Apresoline) 50 mg PO BID [facility] Last Admin: 01/08/19 18:35 Dose: Not Given Hydralazine HCl (Apresoline) 50 mg PO BID [facility] Last Admin: 01/16/19 13:57 Dose: 50 mg Levetiracetam (Keppra 500mg Ivpb) 500 mg in 100 mls @ 400 mls/hr IVPB BID [facility] Stop: 01/16/19 23:00 Last Admin: 01/16/19 09:18 Dose: 400 mls/hr Acyclovir 500 mg/ Sodium (Chloride) 100 mls @ 100 mls/hr IV Q24H [facility]; Protocol Stop: 02/06/19 08:46 Last Admin: 01/16/19 10:56 Dose: 100 mls/hr Acyclovir 500 mg/ Sodium (Chloride) 100 mls @ 100 mls/hr IV TTS [facility]; Protocol Phenytoin 100 mg/ Sodium (Chloride) 52 mls @ 104 mls/hr IVPB ONCE ONE Stop: 01/16/19 22:29 Isosorbide Mononitrate (Imdur Er) 30 mg PO DAILY [facility] Last Admin: 01/16/19 09:18 Dose: 30 mg Levetiracetam (Keppra) 500 mg PO BID [facility] Losartan Potassium (Cozaar) 100 mg PO DAILY [facility] Last Admin: 01/16/19 09:18 Dose: 100 mg Metoprolol Tartrate (Lopressor) 75 mg PO BID [facility] Last Admin: 01/16/19 09:18 Dose: 75 mg Pantoprazole Sodium (Protonix Ec Tab) 40 mg PO ACB [facility] Last Admin: 01/16/19 09:18 Dose: 40 mg Phenytoin Sodium (Dilantin) 100 mg PO TID [facility] Polyethylene Glycol (Miralax) 17 gm PO DAILY PRN PRN Reason: Constipation Last Admin: 01/16/19 09:28 Dose: 17 gm Prednisone (Prednisone Tab) 10 mg PO BID [facility] Last Admin: 01/16/19 09:17 Dose: 10 mg - Labs Labs: 01/15/19 10:20 01/15/19 10:20 PT 10.6 SECONDS (9.4-12.5) 01/15/19 10:20 INR 0.94 01/15/19 10:20 APTT 25.6 Seconds (26.9-38.3) L 01/15/19 10:20 Attending/Attestation - Attestation I have personally seen and examined this patient.: Yes I have fully participated in the care of the patient.: Yes I have reviewed all pertinent clinical information, including history, physical exam and plan: Yes Notes (Text): I agree with the assessment and plan. Will continue current AEDs and follow dilantin level.
--- NOTE | 2019-01-16 15:58 | CP.PCM.PCO ---
Additional Comments - Additional Comments Additional Comments: Pt. seen earlier this am, alert awake, conversing, able to answer questions, Pt. has been cleared by neurologist for DC to acute rehab Saturday, recommended starting PO Dilantin and PO Keppra tomorrow. PMD notified of neuro's rec, and expressed in agreement with DC to acute rehab if remains stable, seizure free on PO Keppra and PO Dilantin. Discussed with SW/CM, patient accepted to acute rehab and transportation set for 3pm Saturday, to [facility] in [place].
[2019-01-17] MEDS: Pantoprazole 40 mg EC Tab PO SCH (06:30)
[2019-01-17] MEDS ORDERED: Darbepoetin Alfa 60 mcg/ml Inj IVP ONE (07:39)
[2019-01-17] MEDS ORDERED: Doxercalciferol 4 mcg/2 ml Inj IV ONE (09:00)
[2019-01-17 09:17] LABS: HEMOGLOBIN 7.9 g/dL (12.0-16.0); MEAN CELL VOLUME 99.2 fl (80.0-105.0); MEAN CORPUSCULAR HEMOGLOBIN 33.1 pg (25.0-35.0); MEAN CORPUSCULAR HGB CONC 33.3 g/dl (31.0-37.0); MEAN PLATELET VOLUME 11.1 fl (7.0-11.0); RBC 2.39 10^6/uL (3.5-6.1); RED CELL DISTRIBUTION WIDTH 20.2 % (11.5-14.5); WHITE BLOOD COUNT 9.1 10^3/uL (4.5-11.0)
[2019-01-17 09:36] LABS: ALB/GLOB RATIO 1.2 (1.1-1.8); ALBUMIN 2.6 g/dL (3.0-4.8); CALCIUM 8.1 mg/dL (8.4-10.5)
[2019-01-17] MEDS: Acyclovir 500 MG in Sodium Chloride 0.9% 100 ML IV SCH (13:15)
[2019-01-17] MEDS ORDERED: levETIRAcetam 500 MG in Sodium Chloride 0.9% 100 ML IVPB SCH (15:00)
--- NOTE | 2019-01-17 15:00 | CP.PCM.PN ---
Subjective - Date & Time of Evaluation Date of Evaluation: 01/17/19 Time of Evaluation: 14:54 - Subjective Subjective: Neurology progress note Mrs. Badillo was seen and examined today at bedside. Her was present and noted that she has been lethargic since this morning. She received dialysis and continued to be somnolent today. Objective - Vital Signs/Intake and Output Vital Signs (last 24 hours): Temp Pulse Resp BP Pulse Ox 98.6 F 83 20 174/83 H 97 01/17/19 06:00 01/17/19 13:14 01/17/19 06:00 01/17/19 13:14 01/17/19 06:00 Intake and Output: 01/17/19 01/17/19 06:59 18:59 Intake Total 1200 Balance 1200 - Medications Medications: Current Medications Armodafinil (Nuvigil 150 Mg Tab) 150 mg PO DAILY [facility] Last Admin: 01/17/19 13:14 Dose: 150 mg Clonidine HCl (Catapres) 0.1 mg PO Q4H PRN PRN Reason: hypertension Last Admin: 01/14/19 06:01 Dose: 0.1 mg Clonidine HCl (Catapres) 0.1 mg PO DAILY [facility] Last Admin: 01/17/19 13:13 Dose: 0.1 mg Diltiazem HCl (Cardizem) 60 mg PO TID [facility] Last Admin: 01/17/19 13:12 Dose: 60 mg Hydralazine HCl (Apresoline) 50 mg PO BID [facility] Last Admin: 01/08/19 18:35 Dose: Not Given Hydralazine HCl (Apresoline) 50 mg PO BID [facility] Last Admin: 01/17/19 13:11 Dose: 50 mg Acyclovir 500 mg/ Sodium (Chloride) 100 mls @ 100 mls/hr IV TTS [facility]; Protocol Last Admin: 01/17/19 13:15 Dose: 100 mls/hr Acyclovir 500 mg/ Sodium (Chloride) 100 mls @ 100 mls/hr IV Q24H [facility]; Protocol Stop: 02/08/19 06:01 Isosorbide Mononitrate (Imdur Er) 30 mg PO DAILY [facility] Last Admin: 01/17/19 13:14 Dose: 30 mg Losartan Potassium (Cozaar) 100 mg PO DAILY [facility] Last Admin: 01/17/19 13:13 Dose: 100 mg Metoprolol Tartrate (Lopressor) 75 mg PO BID [facility] Last Admin: 01/17/19 13:14 Dose: 75 mg Pantoprazole Sodium (Protonix Ec Tab) 40 mg PO ACB [facility] Last Admin: 01/17/19 06:30 Dose: 40 mg Phenytoin Sodium (Dilantin) 100 mg PO TID [facility] Last Admin: 01/17/19 13:13 Dose: 100 mg Polyethylene Glycol (Miralax) 17 gm PO DAILY PRN PRN Reason: Constipation Last Admin: 01/16/19 09:28 Dose: 17 gm Prednisone (Prednisone Tab) 10 mg PO BID [facility] Last Admin: 01/17/19 13:14 Dose: 10 mg - Labs Labs: 01/17/19 09:00 01/17/19 09:00 PT 10.6 SECONDS (9.4-12.5) 01/15/19 10:20 INR 0.94 01/15/19 10:20 APTT 25.6 Seconds (26.9-38.3) L 01/15/19 10:20 - Constitutional Appears: Well - Head Exam Head Exam: ATRAUMATIC, NORMAL INSPECTION, NORMOCEPHALIC - Eye Exam Eye Exam: EOMI, Normal appearance, PERRL Pupil Exam: NORMAL ACCOMODATION, PERRL - ENT Exam ENT Exam: Mucous Membranes Moist, Normal Exam - Neck Exam Neck Exam: Full ROM, Normal Inspection. absent: Lymphadenopathy - Respiratory Exam Respiratory Exam: Clear to Ausculation Bilateral, NORMAL BREATHING PATTERN - Cardiovascular Exam Cardiovascular Exam: REGULAR RHYTHM, +S1, +S2. absent: Murmur - GI/Abdominal Exam GI & Abdominal Exam: Soft, Normal Bowel Sounds. absent: Tenderness - Extremities Exam Extremities Exam: Full ROM, Normal Capillary Refill, Normal Inspection. absent: Joint Swelling, Pedal Edema - Back Exam Back Exam: NORMAL INSPECTION - Neurological Exam Neurological Exam: Altered, CN II-XII Intact Neuro motor strength exam: Left Upper Extremity: 3, Right Upper Extremity: 3, Left Lower Extremity: 3, Right Lower Extremity: 3 Additional comments: Somnolent, but responds to verbal commands and stimulus. She has generalized weakness - Psychiatric Exam Psychiatric exam: Normal Affect, Normal Mood - Skin Skin Exam: Dry, Intact, Normal Color, Warm Assessment and Plan (1) Encephalitis Assessment & Plan: Will continue current management per ID. Status: Acute (2) Seizure Assessment & Plan: Dosing for Keppra should be adjusted to be given after dialysis (500 mg daily). Continue dilantin. Continue provigil. Will follow dilantin and Keppra levels. Status: Acute
[2019-01-17] MEDS ORDERED: levETIRAcetam 500mg IVPB 500 MG/100 ML BAG IVPB SCH ×2 (15:03→15:43)
[2019-01-17] MEDS: levETIRAcetam 500mg IVPB 500 MG/100 ML BAG IVPB SCH (17:41)
--- NOTE | 2019-01-17 22:24 | PN ---
DATE: 01/17/2019 SUBJECTIVE: The patient is seen lying in bed. She is very lethargic today. She is barely arousable. is at bedside. PHYSICAL EXAMINATION: GENERAL: Elderly lady, lying in bed. VITAL SIGNS: Blood pressure 174/83, heart rate 83, respiratory rate 20, temperature 98.4. HEENT: Normocephalic, atraumatic, positive pallor. NECK: Supple, no JVD. LUNGS: Bilateral equal air entry, no rales. CARDIAC: S1, S2. Regular rate and rhythm. No murmur, no rub. ABDOMEN: Obese, distended, soft, nontender. Bowel sounds present. EXTREMITIES: No lower extremity edema. LABORATORY DATA: WBC 9.1, hemoglobin 7.9, hematocrit 24, platelets 149. Sodium 136, potassium 4.4, chloride 105, CO2 of 26, BUN 55, creatinine 3.1, glucose 73, calcium 8.1, phosphorus 4.4, magnesium 1.8, albumin 2.6. CURRENT MEDICATIONS: Acyclovir 500 daily and then 500 after every dialysis, hydralazine 50 b.i.d., Cardizem 60 t.i.d., Catapres 0.1 daily, Losartan 100, Dilantin 800 t.i.d., Imdur 30, Keppra 500 daily, Lopressor, MiraLax, Nuvigil, prednisone 10 b.i.d., Protonix. ASSESSMENT AND PLAN: 1. Herpes encephalitis. 2. Subclinical seizures. 3. Severe hypertension. 4. Recurrent pauci-immune glomerulonephritis. 5. Acute renal failure, remains dialysis dependent for the time being. 6. Severe anemia. 7. Secondary hyperparathyroidism. PLAN: 1. The patient had stable dialysis earlier today. 2. The patient is extremely lethargic today, discussed with Dr. Orellana. He will lower Keppra to once a day, and he will continue Dilantin. 3. The patient received Aranesp today. 4. Continue current antihypertensives. 5. Continue to monitor mental status. Monserrat French MD
--- NOTE | 2019-01-17 22:28 | PN ---
DATE: 01/17/2019 SUBJECTIVE: The patient is in bed, in no acute distress, nontoxic. PHYSICAL EXAMINATION: VITAL SIGNS: Temperature is 98, blood pressure is 101/60, and respiratory rate of 18. HEENT: Unremarkable. NECK: Supple. LUNGS: Have decreased breath sounds. HEART: Normal S1 and S2. ABDOMEN: Soft and nontender. LABORATORY DATA: Reveals a white count of 9.1 and hemoglobin of 7. Chemistries are noted with a creatinine of 3.1. Urinalysis is noted and serology is noted. Microbiology is reviewed. MEDICATIONS: Review of orders reveals the patient is on acyclovir once daily and after dialysis. Dr. Orellana's note is reviewed. ASSESSMENT AND PLAN: This is a 68-year-old female who was seen earlier this morning, she was awake. She was responsive, was admitted with sepsis with HSV-2 encephalitis, end-stage renal disease on hemodialysis, and the patient with granulomatous polyangiitis and breast cancer. Today is day #20 of 21 days of acyclovir. We will continue the present course. Ramana Haywood MD
[2019-01-18] MEDS: Acyclovir 500 MG in Sodium Chloride 0.9% 100 ML IV SCH (05:02)
[2019-01-18 06:02] LABS: PH,URINE 8.5 (4.7-8.0); URINE BILIRUBIN NEGATIVE (NEGATIVE); URINE BLOOD LARGE (NEGATIVE); URINE GLUCOSE (UA) NEGATIVE (NEGATIVE); URINE LEUKOCYTE ESTERASE TRACE Leu/uL (NEGATIVE); URINE PROTEIN >=300 mg/dL (<30 mg/dL); URINE UROBILINOGEN 0.2 E.U./dL (<1 E.U./dL)
[2019-01-18 06:04] LABS: URINE APPEARANCE SLIGHT-CLOUDY (CLEAR); URINE COLOR DARK YELLOW (YELLOW)
[2019-01-18 06:23] LABS: URINE BACTERIA MANY /hpf; URINE RBC 15 - 20 /hpf (0-2)
[2019-01-18 07:28] LABS: MEAN CELL VOLUME 101.2 fl (80.0-105.0); MEAN CORPUSCULAR HEMOGLOBIN 32.8 pg (25.0-35.0); MEAN CORPUSCULAR HGB CONC 32.4 g/dl (31.0-37.0); MEAN PLATELET VOLUME 10.8 fl (7.0-11.0); RBC 2.44 10^6/uL (3.5-6.1); RED CELL DISTRIBUTION WIDTH 20.8 % (11.5-14.5); WHITE BLOOD COUNT 9.1 10^3/uL (4.5-11.0)
[2019-01-18] MEDS: Pantoprazole 40 mg EC Tab PO SCH (08:16)
--- NOTE | 2019-01-18 11:57 | PN ---
DATE: 01/18/2019 SUBJECTIVE: The patient is seen in bed. She is much more awake and responsive. Her fiance is at the bedside who states today is much better today for the patient. She is awake and responsive although at times still confused. PHYSICAL EXAMINATION: VITAL SIGNS: Temperature of 98, blood pressure is 150/80, respiratory rate of 19, heart rate of 67. HEENT: Unremarkable. NECK: Supple. LUNGS: Decreased breath sounds. HEART: Normal S1 and S2. ABDOMEN: Soft, nontender. LABORATORY DATA: Reveals a white count of 9.1, hemoglobin of 8. Chemistry reveals a BUN of 55, creatinine of 3.1. Urinalysis is noted and cultures are reviewed. ASSESSMENT AND PLAN: This is a 68-year-old female who was admitted with sepsis with herpes simplex virus-2 herpes and encephalitis and the patient with end-stage renal disease on hemodialysis, granulomatous polyangiitis, and breast cancer. Today is day #21 of acylovir. We will continue the antibiotic and antiviral at this point. Review of orders reveals the patient is on prednisone, on acylovir once daily and after each dialysis we will continue for now, follow with you. Ramana Haywood MD
[2019-01-18] MEDS: levETIRAcetam 500mg IVPB 500 MG/100 ML BAG IVPB SCH (13:55)
[2019-01-18] MEDS ORDERED: levETIRAcetam 500mg IVPB 500 MG/100 ML BAG IVPB SCH (14:00)
--- NOTE | 2019-01-18 16:20 | CP.PCM.PN ---
Subjective - Date & Time of Evaluation Date of Evaluation: 01/18/19 Time of Evaluation: 16:18 - Subjective Subjective: Neurology progress note Mrs. Badillo was seen and examined today at bedside. She appeared more alert today and answered questions appropriately. Neurologically, unchanged. Objective - Vital Signs/Intake and Output Vital Signs (last 24 hours): Temp Pulse Resp BP Pulse Ox 98.3 F 72 18 96/55 L 96 01/18/19 06:00 01/18/19 13:57 01/18/19 06:00 01/18/19 13:57 01/18/19 06:00 Intake and Output: 01/18/19 01/18/19 06:59 18:59 Intake Total 0 Balance 0 - Medications Medications: Current Medications Armodafinil (Nuvigil 150 Mg Tab) 150 mg PO DAILY [facility] Last Admin: 01/18/19 11:27 Dose: 150 mg Clonidine HCl (Catapres) 0.1 mg PO Q4H PRN PRN Reason: hypertension Last Admin: 01/14/19 06:01 Dose: 0.1 mg Clonidine HCl (Catapres) 0.1 mg PO DAILY [facility] Last Admin: 01/18/19 11:28 Dose: 0.1 mg Diltiazem HCl (Cardizem) 60 mg PO TID [facility] Last Admin: 01/18/19 13:57 Dose: Not Given Hydralazine HCl (Apresoline) 50 mg PO BID [facility] Last Admin: 01/08/19 18:35 Dose: Not Given Hydralazine HCl (Apresoline) 50 mg PO BID [facility] Last Admin: 01/18/19 11:28 Dose: 50 mg Acyclovir 500 mg/ Sodium (Chloride) 100 mls @ 100 mls/hr IV TTS [facility]; Protocol Last Admin: 01/17/19 13:15 Dose: 100 mls/hr Acyclovir 500 mg/ Sodium (Chloride) 100 mls @ 100 mls/hr IV Q24H [facility]; Protocol Stop: 02/08/19 06:01 Last Admin: 01/18/19 05:02 Dose: 100 mls/hr Levetiracetam (Keppra 500mg Ivpb) 500 mg in 100 mls @ 215 mls/hr IVPB DAILY@1400 [facility] Last Admin: 01/18/19 13:55 Dose: 215 mls/hr Isosorbide Mononitrate (Imdur Er) 30 mg PO DAILY [facility] Last Admin: 01/18/19 11:27 Dose: 30 mg Losartan Potassium (Cozaar) 100 mg PO DAILY [facility] Last Admin: 01/18/19 11:27 Dose: 100 mg Metoprolol Tartrate (Lopressor) 75 mg PO BID [facility] Last Admin: 01/18/19 11:28 Dose: 75 mg Pantoprazole Sodium (Protonix Ec Tab) 40 mg PO ACB [facility] Last Admin: 01/18/19 08:16 Dose: 40 mg Phenytoin Sodium (Dilantin) 100 mg PO TID [facility] Last Admin: 01/18/19 13:55 Dose: 100 mg Polyethylene Glycol (Miralax) 17 gm PO DAILY PRN PRN Reason: Constipation Last Admin: 01/16/19 09:28 Dose: 17 gm Prednisone (Prednisone Tab) 10 mg PO BID [facility] Last Admin: 01/18/19 11:28 Dose: 10 mg - Labs Labs: 01/18/19 07:00 01/17/19 09:00 PT 10.6 SECONDS (9.4-12.5) 01/15/19 10:20 INR 0.94 01/15/19 10:20 APTT 25.6 Seconds (26.9-38.3) L 01/15/19 10:20 - Neurological Exam Neurological Exam: Altered, Awake, CN II-XII Intact, Oriented x3 Neuro motor strength exam: Left Upper Extremity: 3, Right Upper Extremity: 3, Le ft Lower Extremity: 3, Right Lower Extremity: 3 Assessment and Plan (1) Encephalitis Assessment & Plan: Continue current treatment plan. Transfer to [facility] when medically stable. Continue PT/OT plan. Status: Acute (2) Seizure Status: Acute
[2019-01-19] MEDS: Acyclovir 500 MG in Sodium Chloride 0.9% 100 ML IV SCH (05:16)
--- NOTE | 2019-01-19 07:02 | CP.PCM.PN ---
Subjective - Date & Time of Evaluation Date of Evaluation: 01/19/19 Time of Evaluation: 06:30 - Subjective Subjective: Lying in bed, no distress, lethargic but responds to verbal commands Reason for consultation and follow up: Cardiac evaluation of elevated troponin, acute kidney injury,ruled out myocardial ischemia, admitted with altered mental status, positive for herpes encephalitis Seen and examined by me and Dr. Sprague Objective - Vital Signs/Intake and Output Vital Signs (last 24 hours): Temp Pulse Resp BP Pulse Ox 98.3 F 88 18 130/76 96 01/18/19 06:00 01/19/19 06:00 01/18/19 06:00 01/18/19 18:19 01/18/19 06:00 Intake and Output: 01/19/19 01/19/19 06:59 18:59 Intake Total 0 Output Total 100 Balance -100 - Medications Medications: Current Medications Armodafinil (Nuvigil 150 Mg Tab) 150 mg PO DAILY [facility] Last Admin: 01/18/19 11:27 Dose: 150 mg Clonidine HCl (Catapres) 0.1 mg PO Q4H PRN PRN Reason: hypertension Last Admin: 01/14/19 06:01 Dose: 0.1 mg Clonidine HCl (Catapres) 0.1 mg PO DAILY [facility] Last Admin: 01/18/19 11:28 Dose: 0.1 mg Diltiazem HCl (Cardizem) 60 mg PO TID [facility] Last Admin: 01/18/19 18:18 Dose: 60 mg Hydralazine HCl (Apresoline) 50 mg PO BID [facility] Last Admin: 01/08/19 18:35 Dose: Not Given Hydralazine HCl (Apresoline) 50 mg PO BID [facility] Last Admin: 01/18/19 18:19 Dose: 50 mg Acyclovir 500 mg/ Sodium (Chloride) 100 mls @ 100 mls/hr IV TTS [facility]; Protocol Last Admin: 01/17/19 13:15 Dose: 100 mls/hr Acyclovir 500 mg/ Sodium (Chloride) 100 mls @ 100 mls/hr IV Q24H [facility]; Protocol Stop: 02/08/19 06:01 Last Admin: 01/19/19 05:16 Dose: 100 mls/hr Levetiracetam (Keppra 500mg Ivpb) 500 mg in 100 mls @ 215 mls/hr IVPB DAILY@1400 [facility] Last Admin: 01/18/19 13:55 Dose: 215 mls/hr Isosorbide Mononitrate (Imdur Er) 30 mg PO DAILY [facility] Last Admin: 01/18/19 11:27 Dose: 30 mg Losartan Potassium (Cozaar) 100 mg PO DAILY [facility] Last Admin: 01/18/19 11:27 Dose: 100 mg Metoprolol Tartrate (Lopressor) 75 mg PO BID [facility] Last Admin: 01/18/19 18:19 Dose: 75 mg Pantoprazole Sodium (Protonix Ec Tab) 40 mg PO ACB [facility] Last Admin: 01/18/19 08:16 Dose: 40 mg Phenytoin Sodium (Dilantin) 100 mg PO TID [facility] Last Admin: 01/18/19 18:18 Dose: 100 mg Polyethylene Glycol (Miralax) 17 gm PO DAILY PRN PRN Reason: Constipation Last Admin: 01/16/19 09:28 Dose: 17 gm Prednisone (Prednisone Tab) 10 mg PO BID [facility] Last Admin: 01/18/19 18:18 Dose: 10 mg - Labs Labs: 01/18/19 07:00 01/17/19 09:00 PT 10.6 SECONDS (9.4-12.5) 01/15/19 10:20 INR 0.94 01/15/19 10:20 APTT 25.6 Seconds (26.9-38.3) L 01/15/19 10:20 - Constitutional Appears: Non-toxic, No Acute Distress - Head Exam Head Exam: NORMAL INSPECTION, NORMOCEPHALIC - ENT Exam ENT Exam: Mucous Membranes Dry, TM's Normal Bilaterally - Respiratory Exam Respiratory Exam: Decreased Breath Sounds, Clear to Ausculation Bilateral, NORMAL BREATHING PATTERN - Cardiovascular Exam Cardiovascular Exam: +S1, +S2 Additional comments: right chest permacath - GI/Abdominal Exam GI & Abdominal Exam: Soft, Normal Bowel Sounds - Exam Additional comments: On hemodialysis 3 x a week (TTS) - Extremities Exam Extremities Exam: Full ROM, Normal Capillary Refill - Neurological Exam Additional comments: lethargic but responsive - Skin Skin Exam: Dry, Normal Color, Warm Assessment and Plan - Assessment and Plan (Free Text) Assessment: A 68 year old female who was admitted to the ER due to altered mental status and acute renal injury. 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 Positive troponin on admission secondary to renal insufficiency/injury. Echo done on 11/08/18 showed LVEF 56%, moderate MR, mild TR. Neuro on consult. Renal on consult. Brain MRI showed herpes enchephalitis. ID on consult. Continue IV antibiotics. On hemodialysis 3 x a week (TTS). Repeat MRI final report showed unchanged herpes enchephalitis. Cardiac status stable.No further cardiac work up. Seizure precaution. Discharge planning Plan: No distress, lethargic but arousable Cardiac status stable Heart rate stable Blood pressure stable On ASA 81 mg daily, Catapres 0.2 mg TID, Cardizem 60 mg TID Hydralazine 50 mg BID, Imdur ER 30 mg daily, Cozaar 100 mg daily, Lopressor 75 mg BID, Prednisone 10 mg every PM and 20 mg every AM Continue IV antibiotics per ID Continue current treatment Continue current medications On hemodialysis Seizure precaution Supportive care Nutritional support May discharge from cardiac standpoint Discharge planning Will follow up Plan and treatment discussed with Dr. Sprague
--- NOTE | 2019-01-19 12:05 | PN ---
DATE: 01/19/2019 SUBJECTIVE: The patient is in bed in no acute distress, was seen earlier this morning. PHYSICAL EXAMINATION: VITAL SIGNS: Temperature 98, blood pressure 130/70, respiratory rate 18. HEENT: Examination of HEENT is unremarkable. NECK: Supple. LUNGS: Decreased breath sounds. HEART: Normal S1, S2. ABDOMEN: Soft. LABORATORY DATA: White count 9.1, hemoglobin 8, platelets of 135. BUN of 55. Review of orders reveals the acyclovir to be active. 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 Today is day #22 of the current recommendation of 21 days of acyclovir. . We will be discontinuing the acyclovir. Dr. Tobi Orellana's note is reviewed and appreciated. Upon discharge, no further acyclovir will be necessary. The patient is at over 21 days of acyclovir which is the current recommendation. Ramana Haywood MD
[2019-01-19] MEDS: levETIRAcetam 500mg IVPB 500 MG/100 ML BAG IVPB SCH (15:22)
--- NOTE | 2019-01-19 15:41 | PN ---
DATE: 01/19/2019 SUBJECTIVE: The patient is seen lying in bed. She is lethargic. She is arousable, but very, very groggy, barely wakes up for a few seconds and then doses off. is at bedside. She was very lethargic on Saturday too. Yesterday was may be slightly better. PHYSICAL EXAMINATION: GENERAL: Elderly lady lying in bed. VITAL SIGNS: Blood pressure 176/98, heart rate 81, respiratory rate 18, and temperature 97.8. HEENT: Normocephalic, atraumatic, positive pallor. NECK: Supple, no JVD. LUNGS: Bilateral equal air entry. No rales. No rhonchi. CARDIAC: S1 and S2, regular rate and rhythm, no murmur, no rub. ABDOMEN: Obese, distended, soft, nontender, bowel sounds present. EXTREMITIES: No lower extremity edema. LABORATORY DATA: Hemoglobin 8 yesterday. CURRENT MEDICATIONS: 1. Keppra 500 g IV daily, post dialysis on dialysis days. 2. Dilantin 100 t.i.d. 3. Acyclovir 500 IV daily and additional 500 post dialysis on dialysis days. 4. Apresoline 50 b.i.d. 5. Cardizem 60 t.i.d. 6. Clonidine 0.1 daily. 7. Losartan 100. 8. Imdur 30. 9. Lopressor 75 b.i.d. 10. MiraLax 17 g. 11. Nuvigil 150. 12. Prednisone 10 b.i.d. 13. Protonix 40. ASSESSMENT: 1. Herpes encephalitis, receiving acyclovir intravenously. 2. Altered mental status, subclinical seizures ?. 3. Severe hypertension. 4. Acute renal failure, currently on dialysis. 5. Severe anemia. PLAN: 1. Dialysis tomorrow. 2. Continue Keppra and Dilantin. 3. Continue acyclovir. 4. Discussed with Dr. Orellana. No indication for repeat EEG. 5. Continue physical therapy. 6. Discharge planning. Monserrat French MD
--- NOTE | 2019-01-19 16:49 | CP.PCM.PCO ---
Additional Comments - Additional Comments Additional Comments: Pt. seen, lethargic today, arousable, then doses off,is not remaining awake for long periods of time, denied any complaints. For seizure control on Keppra 500 mg IV daily, and Dilantin 100 mg tid per neuro. PT , OT rec. Acute rehab. awaiting further input / rec from neuro regarding lethargy.
[2019-01-20] MEDS: Acyclovir 500 MG in Sodium Chloride 0.9% 100 ML IV SCH ×2 (05:35→13:57)
--- NOTE | 2019-01-20 06:32 | CP.PCM.PN ---
Subjective - Date & Time of Evaluation Date of Evaluation: 01/20/19 Time of Evaluation: 06:30 - Subjective Subjective: No distress, lethargic, responds to verbal commands Reason for consultation and follow up: Cardiac evaluation of elevated troponin, acute kidney injury,ruled out myocardial ischemia, admitted with altered mental status, positive for herpes encephalitis Seen and examined by me and Dr. Sprague Objective - Vital Signs/Intake and Output Vital Signs (last 24 hours): Temp Pulse Resp BP Pulse Ox 98 F 74 21 136/71 98 01/19/19 16:35 01/19/19 18:12 01/19/19 16:35 01/19/19 18:12 01/19/19 16:35 Intake and Output: 01/19/19 01/20/19 18:59 06:59 Output Total 500 Balance -500 - Medications Medications: Current Medications Armodafinil (Nuvigil 150 Mg Tab) 150 mg PO DAILY [facility] Last Admin: 01/18/19 11:27 Dose: 150 mg Clonidine HCl (Catapres) 0.1 mg PO Q4H PRN PRN Reason: hypertension Last Admin: 01/14/19 06:01 Dose: 0.1 mg Clonidine HCl (Catapres) 0.1 mg PO DAILY [facility] Last Admin: 01/18/19 11:28 Dose: 0.1 mg Diltiazem HCl (Cardizem) 60 mg PO TID [facility] Last Admin: 01/19/19 18:09 Dose: 60 mg Hydralazine HCl (Apresoline) 50 mg PO BID [facility] Last Admin: 01/08/19 18:35 Dose: Not Given Hydralazine HCl (Apresoline) 50 mg PO BID [facility] Last Admin: 01/19/19 18:09 Dose: 50 mg Acyclovir 500 mg/ Sodium (Chloride) 100 mls @ 100 mls/hr IV TTS [facility]; Protocol Last Admin: 01/17/19 13:15 Dose: 100 mls/hr Acyclovir 500 mg/ Sodium (Chloride) 100 mls @ 100 mls/hr IV Q24H [facility]; Protocol Stop: 02/08/19 06:01 Last Admin: 01/19/19 05:16 Dose: 100 mls/hr Levetiracetam (Keppra 500mg Ivpb) 500 mg in 100 mls @ 215 mls/hr IVPB DAILY@1400 [facility] Last Admin: 01/19/19 15:22 Dose: 215 mls/hr Isosorbide Mononitrate (Imdur Er) 30 mg PO DAILY [facility] Last Admin: 01/18/19 11:27 Dose: 30 mg Losartan Potassium (Cozaar) 100 mg PO DAILY [facility] Last Admin: 01/18/19 11:27 Dose: 100 mg Metoprolol Tartrate (Lopressor) 75 mg PO BID [facility] Last Admin: 01/19/19 18:12 Dose: 75 mg Pantoprazole Sodium (Protonix Ec Tab) 40 mg PO ACB [facility] Last Admin: 01/18/19 08:16 Dose: 40 mg Phenytoin Sodium (Dilantin) 100 mg PO TID [facility] Last Admin: 01/19/19 18:11 Dose: 100 mg Polyethylene Glycol (Miralax) 17 gm PO DAILY PRN PRN Reason: Constipation Last Admin: 01/16/19 09:28 Dose: 17 gm Prednisone (Prednisone Tab) 10 mg PO BID [facility] Last Admin: 01/19/19 18:13 Dose: 10 mg - Labs Labs: 01/18/19 07:00 01/17/19 09:00 PT 10.6 SECONDS (9.4-12.5) 01/15/19 10:20 INR 0.94 01/15/19 10:20 APTT 25.6 Seconds (26.9-38.3) L 01/15/19 10:20 - Constitutional Appears: Non-toxic, No Acute Distress - Head Exam Head Exam: NORMAL INSPECTION - ENT Exam ENT Exam: Mucous Membranes Moist - Respiratory Exam Respiratory Exam: Decreased Breath Sounds, Clear to Ausculation Bilateral, NORMAL BREATHING PATTERN - Cardiovascular Exam Cardiovascular Exam: REGULAR RHYTHM, +S1, +S2 Additional comments: right chest permacath - GI/Abdominal Exam GI & Abdominal Exam: Soft, Normal Bowel Sounds - Exam Additional comments: on hemodialysis 3x a week (TTS) - Neurological Exam Additional comments: lethargic, responds to verbal commands - Skin Skin Exam: Dry, Normal Color, Warm Assessment and Plan - Assessment and Plan (Free Text) Assessment: A 68 year old female who was admitted to the ER due to altered mental status and acute renal injury. 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 Positive troponin on admission secondary to renal insufficiency/injury. Echo done on 11/08/18 showed LVEF 56%, moderate MR, mild TR. Neuro on consult. Renal on consult. Brain MRI showed herpes enchephalitis. ID on consult. On hemodialysis 3 x a week (TTS). Repeat MRI final report showed unchanged herpes enchephalitis. Cardiac status stable.No further cardiac work up. Seizure precaution. Discharge planning. Off antibiotics. For hemodialysis today. Plan: For hemodialysis today Cardiac status stable Heart rate stable Blood pressure stable On ASA 81 mg daily, Catapres 0.2 mg TID, Cardizem 60 mg TID Hydralazine 50 mg BID, Imdur ER 30 mg daily, Cozaar 100 mg daily, Lopressor 75 mg BID, Prednisone 10 mg every PM and 20 mg every AM Continue current treatment Continue current medications Seizure precaution Supportive care Nutritional support May discharge from cardiac standpoint Discharge planning,SARBJIT Will follow up Plan and treatment discussed with Dr. Sprague
[2019-01-20] MEDS: Pantoprazole 40 mg EC Tab PO SCH (08:04)
[2019-01-20 08:54] LABS: HEMOGLOBIN 8.8 g/dL (12.0-16.0); MEAN CORPUSCULAR HEMOGLOBIN 33.5 pg (25.0-35.0); MEAN CORPUSCULAR HGB CONC 32.5 g/dl (31.0-37.0); MEAN PLATELET VOLUME 11.2 fl (7.0-11.0); RBC 2.63 10^6/uL (3.5-6.1); RED CELL DISTRIBUTION WIDTH 22.4 % (11.5-14.5); WHITE BLOOD COUNT 10.2 10^3/uL (4.5-11.0)
[2019-01-20] MEDS ORDERED: Doxercalciferol 4 mcg/2 ml Inj IV ONE (09:00)
[2019-01-20] MEDS ORDERED: Darbepoetin Alfa 100 mcg/ml Inj IVP ONE (09:00)
--- NOTE | 2019-01-20 15:32 | CP.PCM.PCO ---
Physician Communication Note - Physician Communication Note Physician Communication Note: Pt seen after HD,lethargic,arousable,Keppra IV qd changed to PO,cont.Dilant
--- NOTE | 2019-01-20 15:48 | CP.PCM.PN ---
<Eliel Cheek - Last Filed: 01/20/19 15:45> Subjective - Date & Time of Evaluation Date of Evaluation: 01/20/19 Time of Evaluation: 06:00 - Subjective Subjective: Patient seen and examined bedside. no acute issues overnight. Patient still having episodes of lethargy, denies any complaints, has been walking around with physical therapy. Objective - Vital Signs/Intake and Output Vital Signs (last 24 hours): Temp Pulse Resp BP Pulse Ox 98 F 81 18 184/91 H 98 01/20/19 08:22 01/20/19 08:22 01/20/19 08:22 01/20/19 08:22 01/20/19 08:22 Intake and Output: 01/20/19 01/20/19 06:59 18:59 Output Total 500 Balance -500 - Medications Medications: Current Medications Armodafinil (Nuvigil 150 Mg Tab) 150 mg PO DAILY [facility] Last Admin: 01/18/19 11:27 Dose: 150 mg Clonidine HCl (Catapres) 0.1 mg PO Q4H PRN PRN Reason: hypertension Last Admin: 01/14/19 06:01 Dose: 0.1 mg Clonidine HCl (Catapres) 0.1 mg PO DAILY [facility] Last Admin: 01/18/19 11:28 Dose: 0.1 mg Diltiazem HCl (Cardizem) 60 mg PO TID [facility] Last Admin: 01/19/19 18:09 Dose: 60 mg Hydralazine HCl (Apresoline) 50 mg PO BID [facility] Last Admin: 01/19/19 18:09 Dose: 50 mg Acyclovir 500 mg/ Sodium (Chloride) 100 mls @ 100 mls/hr IV TTS [facility]; Protocol Last Admin: 01/20/19 13:57 Dose: 100 mls/hr Acyclovir 500 mg/ Sodium (Chloride) 100 mls @ 100 mls/hr IV Q24H [facility]; Protocol Stop: 02/08/19 06:01 Last Admin: 01/20/19 05:35 Dose: 100 mls/hr Levetiracetam (Keppra) 500 mg PO DAILY [facility] Losartan Potassium (Cozaar) 100 mg PO DAILY [facility] Last Admin: 01/18/19 11:27 Dose: 100 mg Metoprolol Tartrate (Lopressor) 50 mg PO BID [facility] Pantoprazole Sodium (Protonix Ec Tab) 40 mg PO ACB [facility] Last Admin: 01/20/19 08:04 Dose: 40 mg Phenytoin Sodium (Dilantin) 100 mg PO TID [facility] Last Admin: 01/19/19 18:11 Dose: 100 mg Polyethylene Glycol (Miralax) 17 gm PO DAILY PRN PRN Reason: Constipation Last Admin: 01/16/19 09:28 Dose: 17 gm Prednisone (Prednisone Tab) 10 mg PO BID [facility] Last Admin: 01/19/19 18:13 Dose: 10 mg - Labs Labs: 01/20/19 08:30 01/20/19 08:30 PT 10.6 SECONDS (9.4-12.5) 01/15/19 10:20 INR 0.94 01/15/19 10:20 APTT 25.6 Seconds (26.9-38.3) L 01/15/19 10:20 - Constitutional Appears: No Acute Distress - Head Exam Head Exam: ATRAUMATIC, NORMAL INSPECTION, NORMOCEPHALIC - Eye Exam Eye Exam: Normal appearance - ENT Exam ENT Exam: Mucous Membranes Moist - Neurological Exam Neurological Exam: Alert, Awake, Oriented x3 Neuro motor strength exam: Left Upper Extremity: 5, Right Upper Extremity: 5, Left Lower Extremity: 5, Right Lower Extremity: 5 Assessment and Plan - Assessment and Plan (Free Text) Plan: Assessment and Plan (1) Encephalitis Assessment & Plan: Continue current treatment plan. Transfer to [facility] when medically stable. Continue PT/OT plan. Status: Acute (2) Seizure Status: Acute Patient may follow up in month as outpatient <Tobi Orellana - Last Filed: 01/20/19 17:00> Objective - Vital Signs/Intake and Output Vital Signs (last 24 hours): Temp Pulse Resp BP Pulse Ox 98 F 97 H 18 177/83 H 98 01/20/19 08:22 01/20/19 16:32 01/20/19 08:22 01/20/19 16:32 01/20/19 08:22 Intake and Output: 01/20/19 01/20/19 06:59 18:59 Output Total 500 Balance -500 - Medications Medications: Current Medications Armodafinil (Nuvigil 150 Mg Tab) 150 mg PO DAILY [facility] Last Admin: 01/18/19 11:27 Dose: 150 mg Clonidine HCl (Catapres) 0.1 mg PO Q4H PRN PRN Reason: hypertension Last Admin: 01/14/19 06:01 Dose: 0.1 mg Clonidine HCl (Catapres) 0.1 mg PO DAILY [facility] Last Admin: 01/18/19 11:28 Dose: 0.1 mg Diltiazem HCl (Cardizem) 60 mg PO TID [facility] Last Admin: 01/20/19 16:32 Dose: 60 mg Hydralazine HCl (Apresoline) 50 mg PO BID [facility] Last Admin: 01/19/19 18:09 Dose: 50 mg Acyclovir 500 mg/ Sodium (Chloride) 100 mls @ 100 mls/hr IV TTS [facility]; Protocol Last Admin: 01/20/19 13:57 Dose: 100 mls/hr Acyclovir 500 mg/ Sodium (Chloride) 100 mls @ 100 mls/hr IV Q24H [facility]; Protocol Stop: 02/08/19 06:01 Last Admin: 01/20/19 05:35 Dose: 100 mls/hr Levetiracetam (Keppra) 500 mg PO DAILY [facility] Losartan Potassium (Cozaar) 100 mg PO DAILY [facility] Last Admin: 01/18/19 11:27 Dose: 100 mg Metoprolol Tartrate (Lopressor) 50 mg PO BID [facility] Pantoprazole Sodium (Protonix Ec Tab) 40 mg PO ACB [facility] Last Admin: 01/20/19 08:04 Dose: 40 mg Phenytoin Sodium (Dilantin) 100 mg PO TID [facility] Last Admin: 01/20/19 16:33 Dose: 100 mg Polyethylene Glycol (Miralax) 17 gm PO DAILY PRN PRN Reason: Constipation Last Admin: 01/16/19 09:28 Dose: 17 gm Prednisone (Prednisone Tab) 10 mg PO BID [facility] Last Admin: 01/19/19 18:13 Dose: 10 mg - Labs Labs: 01/20/19 08:30 01/20/19 08:30 PT 10.6 SECONDS (9.4-12.5) 01/15/19 10:20 INR 0.94 01/15/19 10:20 APTT 25.6 Seconds (26.9-38.3) L 01/15/19 10:20 Assessment and Plan (1) Encephalitis Status: Acute (2) Seizure Status: Acute Attending/Attestation - Attestation I have personally seen and examined this patient.: Yes I have fully participated in the care of the patient.: Yes I have reviewed all pertinent clinical information, including history, physical exam and plan: Yes Notes (Text): I agree with the assessment and plan. Will decrease Keppra to 500 mg daily. Continue other meds.
[2019-01-20] MEDS: POLYETHYLENE GLYCOL 3350 17 GM/Dose PACKET PO PRN (18:58)
--- NOTE | 2019-01-20 22:53 | PN ---
DATE: 01/20/2019 SUBJECTIVE: The patient is currently seen just having completed dialysis, 1.5 liters of fluid were removed. The patient's boyfriend and I had a discussion. Apparently, they are looking for a place for transfer close to her home in [facility], which could support her with therapy and dialysis. According to the patient's boyfriend, there was an attempt to get her to walk today with a lot of assistance. She was able to walk from the bed to the window. The patient continues to remain lethargic. She is completing a course of acyclovir for herpes encephalitis. MEDICATIONS: Medication list was reviewed. The patient is on acylovir, hydralazine, Cardizem, Catapres, losartan, Dilantin, Keppra, Lopressor, MiraLax, prednisone 10 mg twice a day, and Protonix. OBJECTIVE: INTAKE/OUTPUT: Intake is not charted. Output is 500 mL of urine. VITAL SIGNS: Present blood pressure is 184/91, earlier it was 136/71, temperature 98, respiratory rate is 18 with a pulse of 81. HEENT: Shows her to be normocephalic, atraumatic. When spoken to she opens her eyes. Conjunctiva remains pale. Sclerae nonicteric. NECK: Supple. No neck vein distention. CHEST: Clear to auscultation and percussion with no rales, rhonchi, or wheezing. She has a right chest wall Perm-A-Cath. CARDIOVASCULAR: Shows a regular rate and rhythm without audible murmurs, rubs, or gallops. ABDOMEN: Soft. Bowel sounds normal. No rebound, guarding, or masses. EXTREMITIES: Show no lower extremity cyanosis, clubbing, or edema. LABORATORY DATA AND IMAGING: CBC white blood cell count today 10.2, hemoglobin 8.8 with a platelet count of 148,000. Chemistry show normal electrolytes, BUN 67 with a creatinine of 3.7. Glucose is 127 with a calcium of 8, phosphorus of 4.1. Last magnesium was 1.8. Microbiology as noted in previous notes. Her herpes simplex virus type 2 PCR was positive. All blood cultures were negative. ASSESSMENT: 1. Acute renal failure in a patient with dialysis dependent, uncertain whether or not she will go onto end-stage renal disease. 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 She is status post steroids, plasmapheresis, rituximab, and cytotoxin. She is currently on low-dose oral prednisone, which is being tapered. The patient does appear to be somewhat cushingoid. As discussed with her boyfriend, we are not interested in reducing her immune system stability any further. This leads to opportunistic infections. 2. 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 On home, no significant improvement since my last visit 1 week ago. She has had times of more lucidity and times of lethargy. She apparently needs full support to get up to ambulate. 3. History of hypertension. Blood pressure control is variable. She will continue present medications. 4. Status post multilobar pneumonia. The patient completed a course of antibiotic therapy. 5. History of anemia secondary to bone marrow suppression secondary to infection and secondary to chronic kidney disease. The patient will continue maximum dose of Aranesp with dialysis. We will try and keep her hemoglobin in the 9-10 range. 6. Past history of breast cancer status post lumpectomy, stable. 7. History of secondary hyperparathyroidism. The patient's last phosphorus level was 4.1. She remains on a renal diet and is presently off binder therapy. PLAN: 1. As noted above in infectious disease note, the patient has completed a course of acyclovir. No further dosing to be given. 2. Hopefully, the patient will continue to have improvement in her mental status over time. 3. Continue taper of all steroids. 4. For the time being, it appears that the patient will remain dialysis dependent and she will need to transfer to a subacute rehab facility that could support her with dialysis. 5. Continue medication procedures. 6. 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 Ovidio Randall MD
--- NOTE | 2019-01-20 23:30 | PN ---
DATE: 01/20/2019 SUBJECTIVE: The patient is seen in bed, in no acute distress, nontoxic. PHYSICAL EXAMINATION: VITAL SIGNS: Temperature is 98, blood pressure is 170/80, respiratory rate of 18, heart rate of 97. HEENT: Unremarkable. NECK: Supple. LUNGS: Decreased breath sounds. HEART: Normal S1 and S2. ABDOMEN: Soft. LABORATORY DATA: Laboratory examination reveals the white count is 10,000. Chemistries are noted. Creatinine is 3.7. Microbiology is reviewed. Review of orders reveals the patient is still on acyclovir. Tobi Orellana's progress note is reviewed. ASSESSMENT AND PLAN: This is a 68-year-old female who was admitted with sepsis and herpes simplex type 2, herpes encephalitis in a patient with end-stage renal disease, on hemodialysis, granulomatous polyangiitis, breast cancer. Today is day #23 of acyclovir. Current recommendation is 10 to 14 days. The patient has had adequate therapy. We will discontinue acyclovir in the next 24 hours. With extended therapeutic effect, there was a question of missing certain doses. We will follow with you. Ramana Haywood MD
--- NOTE | 2019-01-21 01:10 | PN ---
ATE: 01/20/2019 SUBJECTIVE: The patient was seen this Saturday in room 362, bed 2 with her , Guerrero at the bedside. She appears to be sleeping, eyes closed, but when I talked to her, she answers. She was able to open her eyes for a short period of time. Overall, she is a bit more awake than when I saw her last on . She has been followed by Dr. Mars Webb on a regular basis since then. I spoke with her bringing him up-to-date on her condition and my plans. She has been in touch with bilingual case manager reviewing the options. Unfortunately, because of her worsening lethargy, she is no longer a candidate for the acute rehab, but may be ready for a subacute rehab in [facility] near her home where she can continue dialysis at the same dialysis center where she has been going and where her will be able to come and followup on her regularly daily as he was always at her bedside. Later in the day, I spoke with Dr. Orellana, neurologist. We agreed to change her Keppra to 500 mg once daily, hold the stimulants that were tried for her excessive sleepiness, also because of fatigue and since her blood pressure is doing very well, I will cut the metoprolol to 50 mg b.i.d. from 75 mg b.i.d. We will also the discontinue isosorbide mononitrate as she is not having any anginal symptoms. Her clonidine has been tapered to 0.1 mg daily. Hopefully, this will be discontinued prior to discharge to home. Hopefully these changes will quiet the itching that has developed although there is no rash present. Later on the day, I received the text that she has been accepted to a rehab facility. Discharge tomorrow is very likely. Simon Webb MD MTDD
[2019-01-21] MEDS: Acyclovir 500 MG in Sodium Chloride 0.9% 100 ML IV SCH (05:22)
[2019-01-21 05:57] VITALS: BP 165/83; TEMP 98.6; O2SAT 99
--- NOTE | 2019-01-21 07:08 | CP.PCM.PN ---
Subjective - Date & Time of Evaluation Date of Evaluation: 01/21/19 Time of Evaluation: 06:30 - Subjective Subjective: Lying in bed, No distress, lethargic but arousable Reason for consultation and follow up: Cardiac evaluation of elevated troponin, acute kidney injury,ruled out myocardial ischemia, admitted with altered mental status, positive for herpes encephalitis Seen and examined by me and Dr. Sprague Objective - Vital Signs/Intake and Output Vital Signs (last 24 hours): Temp Pulse Resp BP Pulse Ox 98.6 F 83 16 165/83 H 99 01/21/19 05:56 01/21/19 05:56 01/21/19 05:56 01/21/19 05:56 01/21/19 05:56 - Medications Medications: Current Medications Armodafinil (Nuvigil 150 Mg Tab) 150 mg PO DAILY [facility] Last Admin: 01/20/19 18:17 Dose: Not Given Clonidine HCl (Catapres) 0.1 mg PO Q4H PRN PRN Reason: hypertension Last Admin: 01/14/19 06:01 Dose: 0.1 mg Clonidine HCl (Catapres) 0.1 mg PO DAILY [facility] Last Admin: 01/20/19 18:17 Dose: Not Given Diltiazem HCl (Cardizem) 60 mg PO TID [facility] Last Admin: 01/20/19 18:40 Dose: 60 mg Hydralazine HCl (Apresoline) 50 mg PO BID [facility] Last Admin: 01/20/19 18:40 Dose: 50 mg Acyclovir 500 mg/ Sodium (Chloride) 100 mls @ 100 mls/hr IV TTS [facility]AK[facility]I; Protocol Last Admin: 01/20/19 13:57 Dose: 100 mls/hr Acyclovir 500 mg/ Sodium (Chloride) 100 mls @ 100 mls/hr IV Q24H [facility]; Protocol Stop: 02/08/19 06:01 Last Admin: 01/21/19 05:22 Dose: 100 mls/hr Levetiracetam (Keppra) 500 mg PO DAILY [facility] Losartan Potassium (Cozaar) 100 mg PO DAILY [facility] Last Admin: 01/20/19 18:17 Dose: Not Given Metoprolol Tartrate (Lopressor) 50 mg PO BID [facility] Last Admin: 01/20/19 18:41 Dose: 50 mg Pantoprazole Sodium (Protonix Ec Tab) 40 mg PO ACB [facility] Last Admin: 01/20/19 08:04 Dose: 40 mg Phenytoin Sodium (Dilantin) 100 mg PO TID [facility] Last Admin: 01/20/19 18:41 Dose: 100 mg Polyethylene Glycol (Miralax) 17 gm PO DAILY PRN PRN Reason: Constipation Last Admin: 01/20/19 18:58 Dose: 17 gm Prednisone (Prednisone Tab) 10 mg PO BID [facility] Last Admin: 01/20/19 18:42 Dose: 10 mg - Labs Labs: 01/20/19 08:30 01/20/19 08:30 PT 10.6 SECONDS (9.4-12.5) 01/15/19 10:20 INR 0.94 01/15/19 10:20 APTT 25.6 Seconds (26.9-38.3) L 01/15/19 10:20 - Constitutional Appears: Non-toxic, No Acute Distress - Head Exam Head Exam: NORMAL INSPECTION, NORMOCEPHALIC - Eye Exam Eye Exam: Normal appearance Pupil Exam: NORMAL ACCOMODATION - Respiratory Exam Respiratory Exam: Decreased Breath Sounds, Clear to Ausculation Bilateral, NORMAL BREATHING PATTERN - Cardiovascular Exam Cardiovascular Exam: +S1, +S2 Additional comments: right chest permacath - GI/Abdominal Exam GI & Abdominal Exam: Soft, Normal Bowel Sounds - Exam Additional comments: on hemodialysis 3x a week, TTS - Extremities Exam Extremities Exam: Full ROM, Normal Capillary Refill - Neurological Exam Additional comments: lethargic but arousable - Skin Skin Exam: Dry, Normal Color, Warm Assessment and Plan - Assessment and Plan (Free Text) Assessment: A 68 year old female who was admitted to the ER due to altered mental status and acute renal injury. 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 Positive troponin on admission secondary to renal insufficiency/injury. Echo done on 11/08/18 showed LVEF 56%, moderate MR, mild TR. Neuro on consult. Renal on consult. Brain MRI showed herpes enchephalitis. ID on consult. On hemodialysis 3 x a week (TTS). Repeat MRI final report showed unchanged herpes enchephalitis. Cardiac status stable.No further cardiac work up. Seizure precaution. Had hemodialysis yesterday and pulled 1.5 liters fluid. Discharge planning. Discharge to [facility]. Plan: Cardiac status stable Heart rate stable Blood pressure stable On ASA 81 mg daily, Catapres 0.2 mg TID, Cardizem 60 mg TID Hydralazine 50 mg BID, Imdur ER 30 mg daily, Cozaar 100 mg daily, Lopressor 75 mg BID, Prednisone 10 mg every PM and 20 mg every AM Continue current treatment Continue current medications Seizure precaution Supportive care Nutritional support May discharge from cardiac standpoint Discharge planning,SARBJIT Will follow up Plan and treatment discussed with Dr. Sprague
[2019-01-21 07:42] VITALS: RESP 20
[2019-01-21] MEDS: Pantoprazole 40 mg EC Tab PO SCH (10:48)
[2019-01-21 14:47] VITALS: PULSE 84
--- NOTE | 2019-01-21 15:10 | PN ---
DATE: 01/21/2019 SUBJECTIVE: The patient is seen lying in bed. She is arousable. Still very groggy. Not really recognizing me today. is at bedside. PHYSICAL EXAMINATION: GENERAL: Elderly lady lying in bed. VITAL SIGNS: Blood pressure 165/83, heart rate 91, respiratory rate 20, temperature 98.6. HEENT: Normocephalic, atraumatic, positive pallor. NECK: Supple, no JVD. LUNGS: Bilateral equal entry, bilateral equal expansion. CARDIAC: S1, S2. Regular rate and rhythm, no murmur, no rub. ABDOMEN: Obese, distended, soft, nontender, bowel sounds present. EXTREMITIES: No lower extremity edema. INTAKE AND OUTPUT: Not charted. LABORATORY DATA: WBC 10, hemoglobin 8.8, hematocrit 27, platelets 148. Sodium 138, potassium 4.0, chloride 107, CO2 of 21, BUN 67, creatinine 3.7, glucose 127, calcium 8.0, phosphorus 4.1. PTH 165. Dilantin level from the 01/17/2019 is 13. CURRENT MEDICATIONS: after each dialysis, acyclovir 500 mg daily IV, hydralazine 50 twice a day, Cardizem 60 three times a day, clonidine 0.1 daily, Cozaar 100, Dilantin 100 three times a day, Lopressor 50 twice a day, Nuvigil 150, prednisone 10 twice a day, and Protonix 40. ASSESSMENT: 1. Herpes encephalitis, status post acyclovir for 23 days, now to be discontinued as per ID recommendations. 2. Subclinical seizures, continue Keppra and Dilantin as per neurology. 3. Acute kidney injury, remains dialysis dependent. 4. Severe hypertension. 5. , recurrence, poor response to treatment. 6. Compensated secondary hyperparathyroidism. 7. Severe anemia. PLAN: 1. Continue dialysis Saturday, and Saturday. 2. Continue Keppra and Dilantin. 3. Physical therapy. 4. Continue current antihypertensives. 5. Continue prednisone 10 twice a day for the time being. 6. Slowly taper off prednisone and clonidine. Monserrat French MD
--- NOTE | 2019-01-21 23:58 | PN ---
DATE: 01/21/2019 SUBJECTIVE: The patient is seen earlier today, in no acute distress. She is responsive and however, she has periods of confusion. PHYSICAL EXAMINATION: VITAL SIGNS: Temperature is 98, blood pressure is 160/80, respiratory rate of 80, and heart rate of 91. HEENT: Unremarkable. NECK: Supple. LUNGS: Have decreased breath sounds. HEART: Normal S1 and S2. ABDOMEN: Soft. LABORATORY DATA: Reveals a white count of 10,000 and hemoglobin of 8. Chemistries are noted, creatinine is 3.7. Urinalysis is noted. ASSESSMENT AND PLAN: This is a 68-year-old female, who was admitted with sepsis, with herpes simplex type 2, herpes encephalitis with end-stage renal disease on hemodialysis, who has granulomatous polyangiitis, also has breast cancer has completed over 21 days of acyclovir. No further antiviral is necessary. The patient now is transferred for rehabilitation. Overall prognosis is quite poor for this patient with multiorgan failure. Ramana Haywood MD
== END 2019-01-21 16:30 | DRG 871 ==
LOC: ED 11:45 → ERH 15:25 → 3RNO 16:47 → ICU 12-30 13:49 → 2RNO 01-02 19:40 → 3RNO 01-11 19:06
PROVIDERS: ADMIT Internal Medicine; ATTEND Internal Medicine
PROC: 30233N1 Transfusion of Nonautologous Red Blood Cells into Peripheral Vein, Percutaneous Approach (ICD-10-PCS; 2018-12-28)
PROC: 5A1D70Z Performance of Urinary Filtration, Intermittent, Less than 6 Hours Per Day (ICD-10-PCS; 2018-12-30)
PROC: 009U3ZX Drainage of Spinal Canal, Percutaneous Approach, Diagnostic (ICD-10-PCS; principal; 2018-12-31)
PROC: 5A1D70Z Performance of Urinary Filtration, Intermittent, Less than 6 Hours Per Day (ICD-10-PCS; 2018-12-31)
PROC: 5A1D70Z Performance of Urinary Filtration, Intermittent, Less than 6 Hours Per Day (ICD-10-PCS; 2019-01-01)
PROC: 5A1D70Z Performance of Urinary Filtration, Intermittent, Less than 6 Hours Per Day (ICD-10-PCS; 2019-01-06)
PROC: 4A1 Measurement and Monitoring, Physiological Systems, Monitoring (ICD-10-PCS; 2019-01-07)
PROC: 5A1D70Z Performance of Urinary Filtration, Intermittent, Less than 6 Hours Per Day (ICD-10-PCS; 2019-01-08)
PROC: 5A1D70Z Performance of Urinary Filtration, Intermittent, Less than 6 Hours Per Day (ICD-10-PCS; 2019-01-10)
PROC: 5A1D70Z Performance of Urinary Filtration, Intermittent, Less than 6 Hours Per Day (ICD-10-PCS; 2019-01-13)
PROC: 5A1D70Z Performance of Urinary Filtration, Intermittent, Less than 6 Hours Per Day (ICD-10-PCS; 2019-01-15)
PROC: 5A1D70Z Performance of Urinary Filtration, Intermittent, Less than 6 Hours Per Day (ICD-10-PCS; 2019-01-17)
PROC: 5A1D70Z Performance of Urinary Filtration, Intermittent, Less than 6 Hours Per Day (ICD-10-PCS; 2019-01-20)
DX: A41.9 Sepsis, unspecified organism (principal); N18.6 End stage renal disease; B00.4 Herpesviral encephalitis; I21.4 Non-ST elevation (NSTEMI) myocardial infarction; J18.1 Lobar pneumonia, unspecified organism; N17.8 Other acute kidney failure; I12.0 Hypertensive chronic kidney disease with stage 5 chronic kidney disease or end stage renal disease; N39.0 Urinary tract infection, site not specified; I47.1 Supraventricular tachycardia; M31.31 Wegener's granulomatosis with renal involvement; G40.89 Other seizures; G93.40 Encephalopathy, unspecified; G40.109 Localization-related (focal) (partial) symptomatic epilepsy and epileptic syndromes with simple partial seizures, not intractable, without status epilepticus; N25.81 Secondary hyperparathyroidism of renal origin; K62.5 Hemorrhage of anus and rectum; M30.0 Polyarteritis nodosa; M31.30 Wegener's granulomatosis without renal involvement; R41.82 Altered mental status, unspecified; Z79.899 Other long term (current) drug therapy; Z99.2 Dependence on renal dialysis; Z85.3 Personal history of malignant neoplasm of breast; D89.9 Disorder involving the immune mechanism, unspecified; Y95 Nosocomial condition; Z87.891 Personal history of nicotine dependence; I16.0 Hypertensive urgency; D63.1 Anemia in chronic kidney disease; R65.20 Severe sepsis without septic shock; Z86.73 Personal history of transient ischemic attack (TIA), and cerebral infarction without residual deficits; E11.22 Type 2 diabetes mellitus with diabetic chronic kidney disease; E88.09 Other disorders of plasma-protein metabolism, not elsewhere classified; A60.00 Herpesviral infection of urogenital system, unspecified; E11.51 Type 2 diabetes mellitus with diabetic peripheral angiopathy without gangrene; E83.39 Other disorders of phosphorus metabolism; E87.6 Hypokalemia; E87.70 Fluid overload, unspecified; K21.9 Gastro-esophageal reflux disease without esophagitis; Z79.52 Long term (current) use of systemic steroids; Z86.010 Personal history of colon polyps; Z86.61 Personal history of infections of the central nervous system; Z88.0 Allergy status to penicillin; Z90.49 Acquired absence of other specified parts of digestive tract; Z92.3 Personal history of irradiation